=== PATIENT | female | born 1940 | race Caucasian/White ===

== ENCOUNTER 2018-03-07 05:49 | Day surgery (SDC) | payer MEDICARE, SELFPAY ==
--- NOTE | 2018-02-26 10:58 | EKG12_ITS ---
Test Reason : PRE OP Blood Pressure : / mmHG Vent. Rate : 078 BPM Atrial Rate : 078 BPM P-R Int : 154 ms QRS Dur : 078 ms QT Int : 390 ms P-R-T Axes : 061 036 059 degrees QTc Int : 444 ms Normal sinus rhythm with sinus arrhythmia Septal infarct , age undetermined Abnormal ECG Confirmed by CINDY NEWMAN, WOOD ([id number]), fashion editor RANDY VIVEROS ([id number]) on 02/28/2018 3:04:12 PM Referred By: Nito Viveros Confirmed By:WOOD WHITE MD
[2018-02-26 11:04] LABS: Hematocrit 39.7 % (37-47); Mean Corp Hgb Conc 32.7 g/gl (32-36); Mean Corpuscular Hgb 29.4 pg (27.0-32.0); Mean Corpuscular Volume 89.8 fL (81-99); Mean Platelet Vol. 10.5 fl (6.2-12.0); Platelet Count 217 K/mm3 (150-450); RBC Distribution Width CV 12.7 % (11.6-14.6); RBC Distribution Width SD 41.3 fl (35.1-43.9); Red Blood Count 4.42 M/mm3 (4.2-5.4); Scan Indicated on CBC? Y/N NO; White Blood Count 7.4 K/mm3 (4.4-11.0)
[2018-02-26 11:47] LABS: Anion Gap 6 (5-15); BUN 15 mg/dL (7-18); BUN/Creat Ratio 15.3 RATIO (10-20); Calcium,Total 9.5 mg/dL (8.5-10.1); Chloride 106 mmol/L (98-107); Creatinine, Serum 0.98 mg/dL (0.55-1.02); EST Glomerular Filtration Rate 59 mL/min (>60); Est Glom Filt Rate - Afr Amer 71 mL/min (>60); Glucose 96 mg/dL (74-106); Potassium 3.6 mmol/L (3.5-5.1); Sodium Level 142 mmol/L (136-145)
[2018-03-07 06:41] VITALS: BP 194/87; PULSE 71; RESP 14; TEMP 35.9; O2SAT 95; BMI 23.8
[2018-03-07] MEDS: Cefazolin 1 GM/50 ML BAG IV (07:32)
[2018-03-07 08:24] VITALS: BP 175/80; BP 194/87; PULSE 81; RESP 14; TEMP 36.5; O2SAT 96
[2018-03-07 08:30] VITALS: BP 173/68; BP 194/87; PULSE 67; RESP 18; O2SAT 100
--- NOTE | 2018-03-07 08:30 | PCM.OP.BLANK ---
Operative Report Date of Procedure: 03/07/18 Preoperative diagnosis: Left knee medial and lateral meniscus tears, arthritis Postoperative diagnosis : Same Procedure: Diagnostic video arthroscopy, partial medial and partial lateral meniscectomies, chondroplasty Surgeon: Dr. Nito Viveros Anesthesia: General anesthesia Special medications: Ancef Indications for surgery: Patient is a 77 -year-old female with a long-standing history of left knee pain. Patient failed adequate nonoperative treatment for the knee pain. MRI findings discussed with patient. Due to persistent symptoms they wish to proceed with knee arthroscopy. Findings: Intraoperative findings were consistent with her preoperative history, physical, radiographic exam. Complex tear of the medial meniscus and complex tear of the lateral meniscus noted and appropriately resected. Chondromalacia medial femoral condyle, lateral femoral condyle, patella noted and lightly shaved Details of procedure: Patient was taken to the OR transfer to the OR table. Nonoperative limb was appropriately padded, GERALDO hose and SCD applied. Patient was placed under the anesthetic agent. Operative knee was examined. No signs of infection. Operative upper thigh was well-padded and ultimately placed in a well-padded thigh jimenez. Operative lower extremity was prepped and draped in usual orthopedic sterile fashion for the procedure. Local anesthetic agent was sterilely injected into the proposed arthroscopic portals. Lateral portal was established with a knife. Took us through skin only. Dull trocar took us into the joint. The scope was placed through the lateral portal. Medial portal and ultimately established using a spinal needle followed by a knife through skin, followed by a dull trocar into the joint. Probe was placed to the medial portal. Patellofemoral joint: Mild arthritis was noted. Patella tracked nicely. No significant plica noted. Light chondroplasty performed patella Medial and lateral gutter: No loose bodies or pathology noted. Mild bone spurring medially Intercondylar notch: ACL appeared within normal limits. Nice resting tension. No loose bodies or cystic changes noted. Medial compartment: Mild chondrosis medial femoral condyle. Almost full-thickness cartilage loss upper tibia. Complex tear of the posterior horn and midportion of the medial meniscus noted and appropriately resected. White chalky substance within the compartment consistent with previous cortisone injections. Chondroplasty performed Lateral compartment: Lateral compartment showed some chondrosis of the lateral femoral condyle. Tibial cartilage appeared normal. Complex tear of the midportion and posterior horn of the lateral meniscus noted in appropriately resected. Light chondroplasty performed Attempts were made to gait posterior medial and posterior lateral with the scope. Based on her bony anatomy this was not accessible without traumatizing the bone and therefore not done. Arthroscopic pictures were taken and saved throughout the procedure. Knee was drained of excess fluid. Arthroscopic instruments were removed. Arthroscopic portals closed with simple sutures of 4-0 nylon. Knee joint injected with a combination of local anesthetic and Duramorph. sterile bandage was applied. Patient was transferred to the room bed and recovery room in satisfactory condition. They will be discharged to home when stable, follow-up in the office in 7-10 days. Patient and the family understand discharge instructions, all of their questions answered. Weightbearing as tolerated. Continue aspirin for DVT prevention This note was generated with [employer] dictation software. It may contain incorrect words, spelling, and punctuation that were not noted in checking the note before signing.
--- NOTE | 2018-03-07 08:37 | OP.PCM_ITS ---
Operative Report Date of Procedure: 03/07/18 Preoperative diagnosis: Left knee medial and lateral meniscus tears, arthritis Postoperative diagnosis : Same Procedure: Diagnostic video arthroscopy, partial medial and partial lateral meniscectomies, chondroplasty Surgeon: Dr. Nito Viveros Anesthesia: General anesthesia Special medications: Ancef Indications for surgery: Patient is a 77 -year-old female with a long-standing history of left knee pain. Patient failed adequate nonoperative treatment for the knee pain. MRI findings discussed with patient. Due to persistent symptoms they wish to proceed with knee arthroscopy. Findings: Intraoperative findings were consistent with her preoperative history, physical , radiographic exam. Complex tear of the medial meniscus and complex tear of the lateral meniscus noted and appropriately resected. Chondromalacia medial femoral condyle, lateral femoral condyle, patella noted and lightly shaved Details of procedure: Patient was taken to the OR transfer to the OR table. Nonoperative limb was appropriately padded, GERALDO hose and SCD applied. Patient was placed under the anesthetic agent. Operative knee was examined. No signs of infection. Operative upper thigh was well-padded and ultimately placed in a well-padded thigh jimenez. Operative lower extremity was prepped and draped in usual orthopedic sterile fashion for the procedure. Local anesthetic agent was sterilely injected into the proposed arthroscopic portals. Lateral portal was established with a knife. Took us through skin only. Dull trocar took us into the joint. The scope was placed through the lateral portal. Medial portal and ultimately established using a spinal needle followed by a knife through skin, followed by a dull trocar into the joint. Probe was placed to the medial portal. Patellofemoral joint: Mild arthritis was noted. Patella tracked nicely. No significant plica noted. Light chondroplasty performed patella Medial and lateral gutter: No loose bodies or pathology noted. Mild bone spurring medially Intercondylar notch: ACL appeared within normal limits. Nice resting tension. No loose bodies or cystic changes noted. Medial compartment: Mild chondrosis medial femoral condyle. Almost full- thickness cartilage loss upper tibia. Complex tear of the posterior horn and midportion of the medial meniscus noted and appropriately resected. White chalky substance within the compartment consistent with previous cortisone injections. Chondroplasty performed Lateral compartment: Lateral compartment showed some chondrosis of the lateral femoral condyle. Tibial cartilage appeared normal. Complex tear of the midportion and posterior horn of the lateral meniscus noted in appropriately resected. Light chondroplasty performed Attempts were made to gait posterior medial and posterior lateral with the scope. Based on her bony anatomy this was not accessible without traumatizing the bone and therefore not done. Arthroscopic pictures were taken and saved throughout the procedure. Knee was drained of excess fluid. Arthroscopic instruments were removed. Arthroscopic portals closed with simple sutures of 4-0 nylon. Knee joint injected with a combination of local anesthetic and Duramorph. sterile bandage was applied. Patient was transferred to the room bed and recovery room in satisfactory condition. They will be discharged to home when stable, follow-up in the office in 7-10 days. Patient and the family understand discharge instructions, all of their questions answered. Weightbearing as tolerated. Continue aspirin for DVT prevention This note was generated with [employer] dictation software. It may contain incorrect words, spelling, and punctuation that were not noted in checking the note before signing.
[2018-03-07 08:47] VITALS: BP 180/74; BP 194/87; PULSE 63; RESP 18; O2SAT 99
[2018-03-07 09:01] VITALS: BP 179/62; BP 194/87; PULSE 59; RESP 16; TEMP 36.2; O2SAT 98
[2018-03-07 10:00] VITALS: BP 194/87
== END 2018-03-07 10:05 | disposition home or self-care (01) ==
LOC: SDC 05:52 → AC 05:52
PROVIDERS: Family Provider Family Medicine; PCP Family Medicine; Visit Provider Orthopaedic Surgery
PROC: (CPT 29870; principal; 2018-03-07 07:10)
DX: M23.222 Derangement of posterior horn of medial meniscus due to old tear or injury, left knee (principal); M23.252 Derangement of posterior horn of lateral meniscus due to old tear or injury, left knee; M17.12 Unilateral primary osteoarthritis, left knee; M94.262 Chondromalacia, left knee; I34.1 Nonrheumatic mitral (valve) prolapse; I10 Essential (primary) hypertension; K21.9 Gastro-esophageal reflux disease without esophagitis; E78.00 Pure hypercholesterolemia, unspecified; F32.9 Major depressive disorder, single episode, unspecified; F41.9 Anxiety disorder, unspecified; Z87.891 Personal history of nicotine dependence; Z79.82 Long term (current) use of aspirin; Z79.899 Other long term (current) drug therapy
CPT/HCPCS: 29880; 36415; 80048; 85027; J7120

== ENCOUNTER → 2018-07-03 10:39 | Outpatient (CLI) | payer MEDICARE, SELFPAY ==
[2018-07-03 12:16] LABS: AST(SGOT) 18 U/L (15-37); Alanine Aminotransfer ALT/SGPT 26 U/L (13-56); Albumin, Serum 3.3 g/dL (3.2-5.0); Alkaline Phosphatase 106 U/L (45-117); Bilirubin, Direct 0.11 mg/dL (0.00-0.30); Cholesterol 210 mg/dL (200); Globulin 3.7 g/dL (2.2-4.2); High Density Lipoprotein 52 mg/dL; Triglycerides 316 mg/dL; Very Low Density Lipoprotein 63 mg/dL (5-40)
== END ==
PROVIDERS: Family Provider Family Medicine; PCP Family Medicine; Visit Provider Internal Medicine Cardiovascular Disease
DX: E78.5 Hyperlipidemia, unspecified (principal); Z79.899 Other long term (current) drug therapy
CPT/HCPCS: 36415; 80061; 80076

== ENCOUNTER → 2019-01-15 09:44 | Outpatient (CLI) | payer MEDICARE, SELFPAY ==
[2019-01-15 10:56] LABS: AST(SGOT) 19 U/L (15-37); Alanine Aminotransfer ALT/SGPT 22 U/L (13-56); Albumin, Serum 3.9 g/dL (3.2-5.0); Alkaline Phosphatase 119 U/L (45-117); Bilirubin, Direct 0.11 mg/dL (0.00-0.30); Cholesterol 181 mg/dL (200); Globulin 3.7 g/dL (2.2-4.2); High Density Lipoprotein 46 mg/dL; Protein, Total 7.6 g/dL (6.4-8.2); Triglycerides 341 mg/dL; Very Low Density Lipoprotein 68 mg/dL (5-40)
== END ==
PROVIDERS: Family Provider Family Medicine; PCP Family Medicine; Referring Provider Nurse Practitioner Family; Visit Provider Nurse Practitioner Family
DX: E78.5 Hyperlipidemia, unspecified (principal)
CPT/HCPCS: 36415; 80061; 80076

== ENCOUNTER → 2019-12-23 13:42 | Outpatient (CLI) | payer MEDICARE, SELFPAY ==
[2019-12-03 11:28] VITALS: BMI 23.0
--- NOTE | 2019-12-23 13:44 | ECHOD_ITS ---
Reason For Study: Dyspnea/SOB Procedure This was a 2D Doppler, Color Flow transthoracic echocardiogram. Exam performed in department. Left Ventricle Normal LV size. Left ventricular systolic function is normal. The estimated ejection fraction is 60 %. Stage 1 diastolic dysfunction. No regional wall motion abnormalities noted. Right Ventricle Normal RV size. Normal systolic function. Atria Normal left atrium. Normal right atrium. Mitral Valve Mild focal mitral valve calcification of the anterior leaflet. Mild mitral valve prolapse. Tricuspid Valve Normal tricuspid valve. Mild (1+) tricuspid valve insufficiency. Pulmonary artery systolic pressure is 28 mmHg. Aortic Valve Normal aortic valve. Trisinus/trileaflet aortic valve. Pulmonic Valve Normal pulmonic valve. Great Vessels Normal aortic root. The pulmonary artery is normal size. Normal inferior vena cava. Pericardium/Pleural No pericardial effusion. MMode/2D Measurements & Calculations LVIDd: 4.2 cm IVSd: 1.3 cm LA dimension: 3.0 cm LVIDs: 2.2 cm LVPWd: 1.2 cm RVDd: 3.1 cm FS: 47.6 % LAV(MOD-bp): 51.9 ml LA A4 area: 20.0 cm2 RA A4 area: 17.6 cm2 LAV(MOD-bp) Indexed: 29.2 ml/m2 LAV(MOD-sp2): 45.7 ml LAV(MOD-sp4): 52.2 ml Time Measurements MV dec time: 0.38 sec Doppler Measurements & Calculations MV E max taz: 52.3 cm/sec Lat Peak E' Taz: 6.9 cm/sec Med Peak E' Taz: 5.2 cm/sec MV A max taz: 82.0 cm/sec E/E' lat: 7.6 E/E' med: 10.0 MV E/A: 0.64 MV V2 max: 101.1 cm/sec MV P1/2t max taz: 78.0 cm/sec Ao V2 max: 166.6 cm/sec MV max P.1 mmHg MV P1/2t: 78.3 msec Ao max P.1 mmHg MV V2 mean: 54.2 cm/sec MV dec slope: 292.0 cm/sec2 MV mean P.3 mmHg MVA(P1/2t): 2.8 cm2 MV V2 VTI: 24.1 cm LV V1 max: 110.0 cm/sec PA V2 max: 97.3 cm/sec TR max taz: 253.7 cm/sec LV V1 max P.8 mmHg TR max P.8 mmHg Interpretation Summary Normal LV size. Left ventricular systolic function is normal. The estimated ejection fraction is 60 %. Stage 1 diastolic dysfunction. Mild mitral valve prolapse. Pulmonary artery systolic pressure is 28 mmHg. Ordering Physician: Yousuf Montiel Referring Physician: CHET Mcnair M.D. Performed By: Pal Sutton RCS
== END ==
PROVIDERS: PCP Family Medicine; Referring Provider Nurse Practitioner Family; Visit Provider Nurse Practitioner Family
DX: I34.1 Nonrheumatic mitral (valve) prolapse (principal); R06.09 Other forms of dyspnea
CPT/HCPCS: 93306

== ENCOUNTER → 2020-06-22 14:55 | Outpatient (CLI) | payer MEDICARE, SELFPAY ==
[2019-12-03 11:28] VITALS: BMI 23.0
--- NOTE | 2020-06-22 15:00 | CT_ITS ---
STUDY: CT SCAN LOWER EXTREMITY RIGHT REASON FOR EXAM: Female, 79 years old. VALGUS DEFORMITY-ILEANA PROTOCOL RADIATION DOSAGE (If Supplied By Facility): CTDIvol = ( 18.76 ) mGy, DLP = ( 1096.13 ) mGycm. Individualized dose optimization techniques were used for this CT.? TECHNIQUE: Multiple axial tomographic images of the right lower extremity were obtained. Coronal and sagittal reconstructions obtained as well COMPARISON: None. FINDINGS: Small acetabular spur is seen along the superior lateral aspect of the acetabulum. No significant joint space narrowing is seen. Marked degree of joint space narrowing involving the medial compartment of the knee joint with evidence of degenerative spurs along the medial tibial plateau and medial femoral condyle. Mild degree of joint space narrowing along the lateral compartment of the knee joint with degenerative spurring along the lateral femoral condyle. Mild degree of joint space narrowing involving the femoral patellar joint. There is evidence of a degenerative spur along the anterior aspect of the lateral femoral condyle. The ankle joint is unremarkable. There is evidence of a 7.2 mm cyst in the body of the calcaneus. CT/Extremity Lower without Contra IMPRESSION: Degenerative changes involving the knee joint as described. Electronically Signed: Rancho Simpson, at 8:26 EDT , Service support ,
== END ==
PROVIDERS: PCP Family Medicine; Referring Provider Orthopaedic Surgery; Visit Provider Orthopaedic Surgery
DX: M21.161 Varus deformity, not elsewhere classified, right knee (principal)
CPT/HCPCS: 73700

== ENCOUNTER 2020-07-11 09:23 | Observation (INO) | payer MEDICARE, SELFPAY ==
[2019-12-03 11:28] VITALS: BMI 23.0
--- NOTE | 2020-06-22 15:04 | EKG12_ITS ---
Test Reason : PRE OP Blood Pressure : / mmHG Vent. Rate : 057 BPM Atrial Rate : 057 BPM P-R Int : 168 ms QRS Dur : 082 ms QT Int : 398 ms P-R-T Axes : 059 025 044 degrees QTc Int : 387 ms Sinus bradycardia with sinus arrhythmia Septal infarct , age undetermined Abnormal ECG Confirmed by CINDY NEWMAN, WOOD ([id number]), photographic editor WARREN CORREA ([id number]) on 06/27/2020 1:59:01 PM Referred By: Nito Viveros Confirmed By:WOOD WHITE MD
--- NOTE | 2020-06-22 15:10 | RAD_ITS ---
STUDY: X-RAY CHEST REASON FOR EXAM: Female, 79 years old. Pre op for knee replacement. Hx of high blood pressure TECHNIQUE: PA and lateral views of the chest. COMPARISON: Comparison is made with prior study dated 10/15/2014. FINDINGS: Hyperinflation. The lungs are clear. There is no demonstrated pleural abnormality. Normal size heart. Normal mediastinum and meño. Normal visualized pulmonary arteries. There is atherosclerotic tortuosity of the aortic arch and descending thoracic aorta. There is demineralization of the osseous structures. Normal visualized ribs, clavicles, and shoulders. There is no demonstrated abnormality of the visualized soft tissue structures of the upper abdomen. RAD/Chest PA and Lateral IMPRESSION: Hyperinflation. Electronically Signed: Rancho Simpson, at 15:25 EDT , Service support ,
[2020-06-22 16:02] LABS: Hematocrit 35.8 % (37-47); Hemoglobin 12.4 g/dL (12.0-15.0); Mean Corp Hgb Conc 34.6 g/dL (32-36); Mean Corpuscular Hgb 30.8 pg (27.0-32.0); Mean Corpuscular Volume 89.1 fL (81-99); Mean Platelet Vol. 10.2 fl (6.2-12.0); Platelet Count 247 K/mm3 (150-450); RBC Distribution Width CV 11.9 % (11.6-14.6); RBC Distribution Width SD 38.7 fl (35.1-43.9); Red Blood Count 4.02 M/mm3 (4.2-5.4); White Blood Count 6.1 K/mm3 (4.4-11.0)
[2020-06-22 16:39] LABS: Anion Gap 3 (5-15); BUN 12 mg/dL (7-18); BUN/Creat Ratio 12.8 RATIO (10-20); Calcium,Total 9.8 mg/dL (8.5-10.1); Chloride 102 mmol/L (98-107); Creatinine, Serum 0.94 mg/dL (0.55-1.02); EST Glomerular Filtration Rate 61 mL/min (>60); Est Glom Filt Rate - Afr Amer 74 mL/min (>60); Glucose 90 mg/dL (74-106); Potassium 3.6 mmol/L (3.5-5.1); Sodium Level 137 mmol/L (136-145)
[2020-06-23 14:51] LABS: Magnesium 1.8 mg/dL (1.6-2.6)
[2020-07-05 08:48] VITALS: BMI 23.1
[2020-07-11] VITALS (12 sets, daily range): BP systolic 101–144; BP diastolic 48–83; PULSE 59–71; RESP 14–20; TEMP 36.2–36.7; O2SAT 90–100; BMI 22.1
[2020-07-11] MEDS: Lactated Ringers 1,000 ML 100 ML IV (06:10)
[2020-07-11] MEDS: Gabapentin 600 MG Tablet PO (06:12)
[2020-07-11] MEDS: Acetaminophen 500 MG Tablet 1000 MG PO ×3 (06:12→21:04)
[2020-07-11] MEDS: Scopolamine 1mg/72hr Patch 1 PATCH TRANSDERM. (06:13)
[2020-07-11 06:35] LABS: Bedside Glucose 81 mg/dL (70-110)
--- NOTE | 2020-07-11 07:30 | KNEE_PTH ---
PATIENT: BERNY TOLENTINO LOC: [id number] U#:[id number] AGE/SX: 79/F ROOM: NJ310 RE07/11/[address]: Dr. Grzegorz Canales MD : [id number] BED: 1 DIS: 07/12/2020 SPEC #: [id number] RECD: 07/11/20 10:06 STATUS: EARLENE JUDY #: [id number] BRIELLE: 07/11/20 07:[address]: Nito Viveros DEPT: SURGICAL PATHOLOGY RECD BY: Nelly Fried ENTERED: 07/11/20 10:22 SP TYPE: TOTAL KNEE OTHR DR: MD Ivone Watson III, PA Tissues: Knee, NOS Procedures: Decalcification bone/plaque Surgery Specimen Level IV HEADER OPERATION: Total knee replacement, robotic arm assist PRE-OP DIAGNOSIS: Right knee osteoarthritis TISSUE SUBMITTED: Debrided bone and tissue right knee MICROSCOPIC DIAGNOSIS Bone and soft tissue, right knee, total knee replacement/resection: Pieces of bone with degenerative osteoarthritic changes. Fibroadipose tissue, fibroconnective tissue and reactive synovial tissue. KIKA:ivette 07/14/20 MICROSCOPIC DESCRIPTION Slides are reviewed. GROSS DESCRIPTION Received is one container designated debrided bone and tissue right knee. The specimen consists of multiple fragments of padilla-yellow bone measuring in aggregate 10.5 x 9 x 3.5 cm. Also in the specimen container are multiple fragments of yellow-white soft tissue measuring in aggregate 7.5 x 4.5 x 2 cm. A number of bony fragments contain articular surfaces consistent with tibial plateau and femoral condyle and displaying prominent osteophyte formation, eburnation, and bone erosion. Athletic Instructor sections are submitted in two cassettes as follows: 1 - soft tissue, 2 - bone after decalcification. / KIKA:ivette 07/11/20 TC:5 CPT: 86318, 86764
[2020-07-11] MEDS: Cefazolin 2 GM in 0.9% Normal Saline 100 ML IV (07:44)
[2020-07-11] MEDS: dexAMETHasone 10 MG/ML Vial IV (07:49)
--- NOTE | 2020-07-11 09:05 | PCM.OP.PRO ---
Procedure Report Date of Procedure: 07/11/20 Preoperative diagnosis: Right knee severe posttraumatic arthritis Postoperative diagnosis: Same Title of procedure : Right total knee replacement, press fit ABUNDIO Surgeon: Nito Viveros MD Lockstitch Lining Setter: Ivone Winslow PA-C Anesthesia: General adductor canal nerve block Anesthesiologist:Dr. Bush / RADHA Special medications: Ancef, tranexamic acid Indications for surgery: Patient is a [79-year-old [female] with a history of knee arthritis appropriately treated and failed conservative measures and wished to proceed with total knee replacement. Patient was cleared for surgery by the medical doctor and has been evaluated by the anesthesia staff Findings: Intraoperative findings showed severe arthritis of the knee. Patient underwent knee replacement using [employer] press-fit total knee components Abundio robotic assisted. Size [4] femur, size [4] tibia, [29 x 9] asymmetric X3 patella, size [4-9 CS] X3 tibial polyethylene insert, knee was nicely balanced. Patella tracked well. Patient underwent standard wound closure in layers. Vicryl and strata fix sutures utilized followed by skin jocelyne. speech language pathology assistant, physician hair or beauty salon assistant, was utilized throughout the entire procedure. They were vital in helping with patient positioning, holding of retractors, exposing the tissues adequately for safe completion of the procedure including cutting of the bone, helping municipal court judge appropriate alignment and sizing of the components, implantation of the components, as well as wound closure, bandage application, and safe patient transfer. Without surgical instruments inspector, physician hair or beauty salon assistant, surgical time would have been significantly increased, and surgical outcome could have been less optimal. Description of procedure: The patient was taken to the OR, transferred to the OR table. They were given a spinal anesthetic. Ancef was given IV preoperatively. Tranexamic acid was given IV preoperatively. Well-padded tourniquet was applied to the upper thigh of the operative leg. Nonoperative leg had a GERALDO hose and SCD on throughout. Operative limb was prepped padded and draped in usual orthopedic sterile fashion for the procedure. We began by injecting the pain relieving solution in the anterior superior aspect of the knee region. The limb was exsanguinated, and the tourniquet was applied to 250 mmHg. Made a midline incision through skin, subcutaneous tissue, bringing down us on the extensor mechanism. Medial parapatellar arthrotomy was carried out. Straw-colored joint fluid was evacuated. We raised a sleeve of tissue off the upper medial tibia. Resected some of the infrapatellar fat pad. We remove degenerative medial and lateral meniscus. Removed bone spurs from about the patella. We removed tissue off the anterior aspect of the distal femur. Patella was translated laterally and/or everted as needed throughout the procedure. ACL was resected. PCL was preserved. Collateral ligaments were preserved. Physician placed the retractors and hair or beauty salon assistant held retractors protecting above ligaments throughout the procedure. Patella was everted. Measured. Appropriate resection was carried out leaving us between a 13 and 15 mm thick patella. Metal plate was applied. Pins were placed in the femur and tibia at appropriate locations being bicortical. Check pin was placed in the distal femur and upper tibia at appropriate location. Capricor robot was appropriately prepared femur then tibia. Knee was appropriately stressed in 90 degrees of flexion as well as in extension. Robot was appropriately manipulated to allow for approximately 19 to 21 mm of flexion and extension gap. Good sizing and alignment of components was noted on computer. Robotic cuts were carried out cutting the upper tibia first, followed by femoral cuts. Lockstitch Lining Setter help with retraction and protecting soft tissues throughout. Bone fragments were removed. we then sized off the upper tibia with the help of the hair or beauty salon assistant. We then checked flexion extension gaps finding them to be adequate and equal. Tibial trial with plastic insert was inserted. Next the distal femoral trial was applied. Tibial tray was allowed to freefloat with a 9 mm insert. Knee was flexed and extended an external alignment guide is utilized. Tibial trial was pinned in place. Drill holes were placed into the distal femoral trial and it was removed. Punch was used on the upper tibial component and that was removed. The sclerotic bone was softened with a sharp pin. Bone spurs had been removed from the posterior medial and posterior lateral aspect of the femur while the hair or beauty salon assistant lifted up on the distal femur and exposed each compartment. Patella was everted and measured. Patella was sized. Clamp was utilized. 3 drill holes were placed through the clamp held by the hair or beauty salon assistant. Trial patella was placed and removed. Bleeding was controlled at the back of the knee with the bovey. Posterior knee soft tissues were carefully injected with pain relieving solution. Components were checked and open. . The bony surfaces cleaned and dried. Tibia, femur, patella press-fit into position. Tibial insert was placed just before placing the femur. Lockstitch Lining Setter held retractors exposing the bony surfaces of the tibia and femur which were hammered in position. Patella clamped into position.balancing was again checked with the computer. Checkpoints and femoral and tibial pins removed. we thoroughly irrigated and debrided the knee. Bleeding controlled with the Bovie. Knee was again thoroughly irrigated. Irresept solution utilized. Patella noted to track nicely. We repaired the arthrotomy with a combination of #1 Vicryl and #2 strata fix. We did a mid layer of 1 Vicryl and #0 strata fix running. Jocelyne were utilized on the incision as well as pin sites. Mepilex dressing applied. GERALDO hose and SCDs applied. Patient was awoken from their anesthetic, transferred back to their own bed and recovery room in satisfactory condition. Second dose of IV Tranexamic acid was given while closing wound. Patient was admitted, appropriate IV antibiotic to be utilized as well as medication for DVT prevention. Hopeful discharge in 1-2 days. Hospitalist service and Physical therapy will be consulted. Ancef was used 2 g IV preoperatively. Xarelto will be used for DVT prevention 10 mg daily This note was generated with [employer] dictation software. It may contain incorrect words, spelling, and punctuation that were not noted in checking the note before signing.
--- NOTE | 2020-07-11 09:25 | RAD_ITS ---
STUDY: X-RAY - RIGHT KNEE REASON FOR EXAM: Female, 79 years old. POST OP TOTAL KNEE TECHNIQUE: AP and lateral view(s) of the knee. COMPARISON: Comparison is made with prior study dated 11/07/2015. FINDINGS: Normal visualized distal femur. Normal visualized proximal tibia and fibula. Normal proximal tibiofibular articulation. The patient is status post total knee replacement. There is good alignment. Postoperative soft tissue changes. RAD/Knee 1 or 2 Views IMPRESSION: Status post total knee replacement. There is good alignment. Postoperative soft tissue changes. Electronically Signed: Rancho Simpson, at 12:35 EDT , Service support ,
[2020-07-11] MEDS: Lactated Ringers 1,000 ML 125 ML IV ×2 (13:30→21:18)
[2020-07-11] MEDS: hydroCHLOROthiazide 12.5mg 12.5 MG PO (13:34)
[2020-07-11] MEDS: Sertraline 100 MG Tablet PO (13:35)
[2020-07-11] MEDS: buPROPion (XL) 300 MG TABLET.XL PO (13:35)
[2020-07-11] MEDS: Cefazolin 1 GM/50 ML BAG IV ×2 (13:40→21:00)
--- NOTE | 2020-07-11 15:11 | PN_ITS ---
<NiranjanCynthia DISPUTE RESOLUTION SPECIALIST - Last Filed: 07/11/20 15:34> Subjective: Patient seen and examined. Status post right total knee replacement by Dr. Viveros. Resting comfortably in bed. She has a past medical history of hypertension, hyperlipidemia, mitral valve prolapse, ulcerative colitis, GERD, depression, anxiety. - Physical Exam Vitals/I&O's: Vital Signs Temp Pulse Resp BP Pulse Ox 97.1 F L 67 20 H 127/66 H 95 07/11/20 13:28 07/11/20 13:28 07/11/20 13:28 07/11/20 13:28 07/11/20 13:28 Oxygen Flow Rate (L/min) 2 Oxygen Delivery Method Nasal Cannula Weight: 145 lb 8.081 oz Body Mass Index (BMI) 22.1 Intake and Output for Last 24 Hours 07/09/20 07/10/20 07/11/20 23:59 23:59 23:59 Intake Total 1238.16 / 1238.16 Balance 1238.16 / 1238.16 General: Alert, Oriented x3, Cooperative HEENT: Atraumatic, PERRLA, EOMI, Normocephalic Neck: Supple, No JVD, Negative Carotid Bruits Lungs: Clear to auscultation, Normal air movement Cardiovascular: Regular rate, No murmurs Abdomen: Bowel Sounds Present, Soft, Non Tender Extremities: No clubbing, No cyanosis, No edema Skin: No rashes, No breakdown, - - Right knee postop dressing intact Musculoskeletal: No Tenderness to Palpation of Joints or Extremities Neurological: Cranial nerves II-XII grossly intact, Neuro grossly intact Psych/Mental Status: Normal Affect, Appropriate Laboratory Results 07/11/20 05:57: POC Glucose 81 Current Medications Acetaminophen (Tylenol) 1,000 mg PO Q8 [facility] Last Admin: 07/11/20 13:35 Dose: 1,000 mg Documented by: Amlodipine Besylate (Norvasc) 5 mg PO DAILY [facility] Bupropion HCl (Wellbutrin Xl) 300 mg PO DAILY [facility] Last Admin: 07/11/20 13:35 Dose: 300 mg Documented by: Carvedilol (Coreg) 3.125 mg PO BID [facility] Clonazepam (Klonopin) 0.5 mg PO TID PRN PRN PRN Reason: ANXIETY Dexamethasone Sodium Phosphate (Decadron) 10 mg IV X1 ONE Stop: 07/12/20 08:01 Diphenhydramine HCl (Benadryl) 25 mg PO QHS PRN PRN PRN Reason: SLEEP Hydrochlorothiazide () 12.5 mg PO DAILY [facility] Last Admin: 07/11/20 13:34 Dose: 12.5 mg Documented by: Cefazolin Sodium () 1 gm in 50 mls @ 150 mls/hr IV Q6H [facility] Stop: 07/12/20 02:19 Last Infusion: 07/11/20 14:00 Dose: Infused Documented by: Lactated Ringer's () 1,000 mls @ 125 mls/hr IV .Q8H [facility] Last Infusion: 07/11/20 14:00 Dose: 125 mls/hr Documented by: Sodium Chloride () 250 mls @ 15 mls/hr IV .[id number] PRN PRN Reason: Additional IVPB Infusion Insulin Human Lispro (Humalog Kwikpen (Bkc)) 1 - 6 unit SC Q4H PRN PRN; Protocol PRN Reason: BG>/= 180, SEE PROTOCOL Lisinopril (Zestril) 20 mg PO DAILY [facility] Morphine Sulfate () 2 - 4 mg IV Q2H PRN PRN PRN Reason: Pain Score 6-10/10 Morphine Sulfate () 2 - 4 mg IV Q2H PRN PRN PRN Reason: Pain Score 6-10/10 Ondansetron HCl (Zofran) 4 mg IV Q8H PRN PRN PRN Reason: NAUSEA Oxycodone HCl (Oxyir) 5 - 10 mg PO Q4H PRN PRN PRN Reason: Pain Score 4-10/10 Pantoprazole Sodium (Protonix) 20 mg PO BID [facility] Promethazine HCl (Phenergan) 12.5 mg IM Q6H PRN PRN; Protocol PRN Reason: NAUSEA/VOMITING Rivaroxaban (Xarelto) 10 mg PO DAILY@0600 [facility] Senna/Docusate Sodium (Senokot-S, Glenna-Colace) 2 tablet PO BID [facility] Last Admin: 07/11/20 13:34 Dose: Not Given Documented by: Sertraline HCl (Zoloft) 100 mg PO DAILY [facility] Last Admin: 07/11/20 13:35 Dose: 100 mg Documented by: Simvastatin (Zocor) 20 mg PO QHS [facility] Sodium Chloride () 10 - 40 ml IV UD PRN PRN Reason: SALINE FLUSH Medical Necessity - Tobacco Use Smoking Status: Former smoker Assessment/Plan 1. Postop day #0 right total knee replacement-PT/OT. PRN pain regimen. Management per Ortho. 2. Hypertension-stable, continue amlodipine, carvedilol, hydrochlorothiazide, quinapril. 3. Hyperlipidemia-continue statin. 4. Mitral valve prolapse-echo December 2019 with mild mitral valve prolapse. EF 60%, stage I diastolic dysfunction. 5. Ulcerative colitis 6. GERD-continue PPI. 7. Depression/anxiety-continue bupropion, clonazepam, sertraline. DVT prophylaxis- SCDs This patient was seen by DUANE Barry under the supervision of Dr. Childers. <Paige Childers - Last Filed: 07/11/20 17:06> Subjective: I agree with the above and the following reflects my own independent history and PE. Pt is sitting up in a chair. PT and OT at bedside. Denies any pain but did have a Femoral nn block. - Physical Exam Vitals/I&O's: Vital Signs Temp Pulse Resp BP Pulse Ox 97.5 F L 66 18 133/62 H 100 07/11/20 15:28 07/11/20 15:28 07/11/20 15:28 07/11/20 15:28 07/11/20 15:28 Oxygen Flow Rate (L/min) 2 Oxygen Delivery Method Room Air Weight: 66 kg Body Mass Index (BMI) 22.1 Intake and Output for Last 24 Hours 07/09/20 07/10/20 07/11/20 23:59 23:59 23:59 Intake Total 1238.16 / 1238.16 Balance 1238.16 / 1238.16 General: Alert, Oriented x3, Cooperative, No apparent distress, Well developed, Well nourished, - - Older WF sitting up in a chair with PT and OT at bedside HEENT: Atraumatic, PERRLA, EOMI, Normocephalic, EAC Clear Oral: Moist Mucosa, No Gingival or Mucosal Lesions/ Ulcerations, - - good dentition Neck: Supple, No JVD, Negative Carotid Bruits, Negative Hepatojugular Reflux, No Nodes, No Nuchal Rigidity, Trachea Midline, Thyroid Normal Size and Texture Lungs: Clear to auscultation, Normal air movement, No rhonchi, No wheeze, No rales Cardiovascular: Regular rate, Regular Rhythm, Normal S1, Normal S2, No murmurs, No Ectopic Activity, No rub noted, No Gallop Abdomen: Bowel Sounds Present, Soft, Non Tender, Non-Distended, No Hepato- splenomegaly Extremities: No clubbing, No cyanosis, No edema, Capillary Refill Less than 3 S econds, No Calf Tenderness, Peripheral Pulses Normal Skin: No rashes, No breakdown Musculoskeletal: No Tenderness to Palpation of Joints or Extremities, No Muscle Wasting Lymphatic: No Cervical, Supraclavicular, or Inguinal Adenopathy Neurological: Cranial nerves II-XII grossly intact, Neuro grossly intact Psych/Mental Status: Normal Affect, Appropriate, Alert and oriented to time, place, person, mood and affect Laboratory Results 07/11/20 05:57: POC Glucose 81 Current Medications Acetaminophen (Tylenol) 1,000 mg PO Q8 [facility] Last Admin: 07/11/20 13:35 Dose: 1,000 mg Documented by: Amlodipine Besylate (Norvasc) 5 mg PO DAILY [facility] Bupropion HCl (Wellbutrin Xl) 300 mg PO DAILY [facility] Last Admin: 07/11/20 13:35 Dose: 300 mg Documented by: Carvedilol (Coreg) 3.125 mg PO BID [facility] Clonazepam (Klonopin) 0.5 mg PO TID PRN PRN PRN Reason: ANXIETY Dexamethasone Sodium Phosphate (Decadron) 10 mg IV X1 ONE Stop: 07/12/20 08:01 Diphenhydramine HCl (Benadryl) 25 mg PO QHS PRN PRN PRN Reason: SLEEP Hydrochlorothiazide () 12.5 mg PO DAILY [facility] Last Admin: 07/11/20 13:34 Dose: 12.5 mg Documented by: Cefazolin Sodium () 1 gm in 50 mls @ 150 mls/hr IV Q6H [facility] Stop: 07/12/20 02:19 Last Infusion: 07/11/20 14:00 Dose: Infused Documented by: Lactated Ringer's () 1,000 mls @ 125 mls/hr IV .Q8H [facility] Last Infusion: 07/11/20 14:00 Dose: 125 mls/hr Documented by: Sodium Chloride () 250 mls @ 15 mls/hr IV .[id number] PRN PRN Reason: Additional IVPB Infusion Insulin Human Lispro (Humalog Kwikpen (Bkc)) 1 - 6 unit SC Q4H PRN PRN; Protocol PRN Reason: BG>/= 180, SEE PROTOCOL Lisinopril (Zestril) 20 mg PO DAILY [facility] Morphine Sulfate () 2 - 4 mg IV Q2H PRN PRN PRN Reason: Pain Score 6-10/10 Morphine Sulfate () 2 - 4 mg IV Q2H PRN PRN PRN Reason: Pain Score 6-10/10 Ondansetron HCl (Zofran) 4 mg IV Q8H PRN PRN PRN Reason: NAUSEA Oxycodone HCl (Oxyir) 5 - 10 mg PO Q4H PRN PRN PRN Reason: Pain Score 4-10/10 Last Admin: 07/11/20 15:26 Dose: 5 mg Documented by: Pantoprazole Sodium (Protonix) 20 mg PO BID [facility] Promethazine HCl (Phenergan) 12.5 mg IM Q6H PRN PRN; Protocol PRN Reason: NAUSEA/VOMITING Rivaroxaban (Xarelto) 10 mg PO DAILY@0600 [facility] Senna/Docusate Sodium (Senokot-S, Glenna-Colace) 2 tablet PO BID [facility] Last Admin: 07/11/20 13:34 Dose: Not Given Documented by: Sertraline HCl (Zoloft) 100 mg PO DAILY [facility] Last Admin: 07/11/20 13:35 Dose: 100 mg Documented by: Simvastatin (Zocor) 20 mg PO QHS [facility] Sodium Chloride () 10 - 40 ml IV UD PRN PRN Reason: SALINE FLUSH Assessment/Plan I agree with the above and the following reflects my own independent history and PE. ASSESSMENT POD # 0 R TKA HTN HPL MVP Stage I Diastolic Dysfunction UC GERD Depression/Anxiety DVT Prophylaxis Code Status--> FULL PLAN -PT/OT -pain mgt per ortho -plan is for D/C home -continue home meds -trend labs Inpatient E&M: 01731 Init Hosp L2
[2020-07-11] MEDS: oxyCODONE 5 MG Tablet PO (15:26)
[2020-07-11] MEDS: Pantoprazole Sodium 20 MG Tablet PO (21:04)
[2020-07-11] MEDS: Carvedilol 3.125 MG TABLET PO (21:04)
[2020-07-11] MEDS: Simvastatin 20 MG Tablet PO (21:04)
[2020-07-12 03:00] VITALS: BP 130/58; PULSE 61; RESP 18; TEMP 36.7; O2SAT 98
[2020-07-12] MEDS: Cefazolin 1 GM/50 ML BAG IV (03:02)
[2020-07-12 06:01] LABS: Hematocrit 27.6 % (37-47); Hemoglobin 9.5 g/dL (12.0-15.0); Mean Corp Hgb Conc 34.4 g/dL (32-36); Mean Corpuscular Hgb 30.4 pg (27.0-32.0); Mean Corpuscular Volume 88.5 fL (81-99); Mean Platelet Vol. 10.2 fl (6.2-12.0); Platelet Count 189 K/mm3 (150-450); RBC Distribution Width CV 11.5 % (11.6-14.6); RBC Distribution Width SD 36.4 fl (35.1-43.9); Red Blood Count 3.12 M/mm3 (4.2-5.4); White Blood Count 10.9 K/mm3 (4.4-11.0)
[2020-07-12] MEDS: oxyCODONE 5 MG Tablet PO ×2 (06:23→10:59)
[2020-07-12] MEDS: Rivaroxaban 10 MG Tablet PO (06:23)
[2020-07-12] MEDS: Acetaminophen 500 MG Tablet 1000 MG PO ×2 (06:24→13:47)
[2020-07-12 06:30] LABS: Anion Gap 6 (5-15); BUN 14 mg/dL (7-18); BUN/Creat Ratio 15.2 RATIO (10-20); Calcium,Total 8.8 mg/dL (8.5-10.1); Chloride 97 mmol/L (98-107); Creatinine, Serum 0.92 mg/dL (0.55-1.02); EST Glomerular Filtration Rate 63 mL/min (>60); Est Glom Filt Rate - Afr Amer 76 mL/min (>60); Estimated Creatinine Clearance 51.66 ml/min; Glucose 110 mg/dL (74-106); Potassium 3.3 mmol/L (3.5-5.1); Sodium Level 133 mmol/L (136-145)
--- NOTE | 2020-07-12 07:20 | PN.ORTHO_ITS ---
Subjective: This 79-year-old female underwent a right total knee replacement yesterday. Pain has been fairly well controlled. She stood with physical therapy yesterday. She is not sure if she is ready for discharge to home home health physical therapy versus penitentiary. She would like to see how physical therapy goes today. She currently denies chest pain shortness of breath dizziness or calf pain. We discussed her low potassium level. She admits that this is common with her. Objective: Patient is alert and oriented x3. No acute distress at rest. Breathing easily without respiratory distress. Inspection of right knee reveals 3 anterior knee dressings with some bloody drainage without active drainage warmth or signs of infection. Negative Ronalod bilaterally without signs of DVT. Pedal pulses present and equal bilaterally. Sensation intact to light touch bilateral lower extremities. Patient is able to actively plantar and dorsiflex bilateral feet against resistance. Legs are neurovascularly intact. X-ray of right knee were reviewed with Dr. Nito Viveros and are consistent with a right total knee replacement press-fit prostheses in good position without evidence of hardware failure or loosening Laboratory results - Physical Exam Vitals/I&O's: Vital Signs Temp Pulse Resp BP Pulse Ox 98.1 F 61 18 130/58 H 98 07/12/20 03:00 07/12/20 03:00 07/12/20 03:00 07/12/20 03:00 07/12/20 03:00 Oxygen Flow Rate (L/min) 2 Oxygen Delivery Method Nasal Cannula Weight: 66 kg Body Mass Index (BMI) 22.1 Intake and Output for Last 24 Hours 07/10/20 07/11/20 07/12/20 23:59 23:59 23:59 Intake Total 3060.66 / 3060.66 1697.92 / 1697.92 Output Total 200 / 200 950 / 950 Balance 2860.66 / 2860.66 747.92 / 747.92 Laboratory Results 07/12/20 05:48: WBC 10.9, RBC 3.12 L, Hgb 9.5 L, Hct 27.6 L, MCV 88.5, MCH 30.4, MCHC 34.4, RDW Std Deviation 36.4, RDW Coeff of [place] 11.5 L, Plt Count 189, MPV 10.2 07/12/20 05:48: Sodium 133 L, Potassium 3.3 L, Chloride 97 L, Carbon Dioxide 30.0, Anion Gap 6, BUN 14, Creatinine 0.92, Estim Creat Clear Calc 51.66, Est GFR (MDRD) Af Amer 76, Est GFR (MDRD) Non-Af 63, BUN/Creatinine Ratio 15.2, Glucose 110 H, Calcium 8.8 Current Medications Acetaminophen (Tylenol) 1,000 mg PO Q8 [facility] Last Admin: 07/12/20 06:24 Dose: 1,000 mg Documented by: Amlodipine Besylate (Norvasc) 5 mg PO DAILY [facility] Bupropion HCl (Wellbutrin Xl) 300 mg PO DAILY [facility] Last Admin: 07/11/20 13:35 Dose: 300 mg Documented by: Carvedilol (Coreg) 3.125 mg PO BID [facility] Last Admin: 07/11/20 21:04 Dose: 3.125 mg Documented by: Clonazepam (Klonopin) 0.5 mg PO TID PRN PRN PRN Reason: ANXIETY Dexamethasone Sodium Phosphate (Decadron) 10 mg IV X1 ONE Stop: 07/12/20 08:01 Diphenhydramine HCl (Benadryl) 25 mg PO QHS PRN PRN PRN Reason: SLEEP Hydrochlorothiazide () 12.5 mg PO DAILY [facility] Last Admin: 07/11/20 13:34 Dose: 12.5 mg Documented by: Lactated Ringer's () 1,000 mls @ 125 mls/hr IV .Q8H [facility] Last Infusion: 07/12/20 04:53 Dose: 0 mls/hr Documented by: Sodium Chloride () 250 mls @ 15 mls/hr IV .[id number] PRN PRN Reason: Additional IVPB Infusion Insulin Human Lispro (Humalog Kwikpen (Bkc)) 1 - 6 unit SC Q4H PRN PRN; Protoc ol PRN Reason: BG>/= 180, SEE PROTOCOL Lisinopril (Zestril) 20 mg PO DAILY [facility] Morphine Sulfate () 2 - 4 mg IV Q2H PRN PRN PRN Reason: Pain Score 6-10/10 Morphine Sulfate () 2 - 4 mg IV Q2H PRN PRN PRN Reason: Pain Score 6-10/10 Ondansetron HCl (Zofran) 4 mg IV Q8H PRN PRN PRN Reason: NAUSEA Oxycodone HCl (Oxyir) 5 - 10 mg PO Q4H PRN PRN PRN Reason: Pain Score 4-10/10 Last Admin: 07/12/20 06:23 Dose: 5 mg Documented by: Pantoprazole Sodium (Protonix) 20 mg PO BID [facility] Last Admin: 07/11/20 21:04 Dose: 20 mg Documented by: Promethazine HCl (Phenergan) 12.5 mg IM Q6H PRN PRN; Protocol PRN Reason: NAUSEA/VOMITING Rivaroxaban (Xarelto) 10 mg PO DAILY@0600 [facility] Last Admin: 07/12/20 06:23 Dose: 10 mg Documented by: Senna/Docusate Sodium (Senokot-S, Glenna-Colace) 2 tablet PO BID [facility] Last Admin: 07/11/20 21:28 Dose: Not Given Documented by: Sertraline HCl (Zoloft) 100 mg PO DAILY [facility] Last Admin: 07/11/20 13:35 Dose: 100 mg Documented by: Simvastatin (Zocor) 20 mg PO QHS [facility] Last Admin: 07/11/20 21:04 Dose: 20 mg Documented by: Sodium Chloride () 10 - 40 ml IV UD PRN PRN Reason: SALINE FLUSH Medical Necessity - Tobacco Use Smoking Status: Former smoker Assessment/Plan 1. Status post right total knee replacement postoperative day #1 2. Continue OxyIR and Tylenol for pain control 3. DVT prophylaxis bilateral teds SCDs and Xarelto 10 mg 1 p.o. daily for 1 week 4. Begin PT/OT weightbearing as tolerated right lower extremity with a walker 5. Drop in hemoglobin hematocrit asymptomatic without indication for transfusion continue to monitor 6. Continue postoperative medical management per hospitalist group. Hypokalemia to be addressed. Likely resulting from hydrochlorothiazide 7. Continue discharge planning with case management 8. Patient is orthopedically stable possible discharge to home today pending how physical therapy goes and pain control. If there is concern we may have to consider discharge to penitentiary facility.
[2020-07-12 07:23] VITALS: O2SAT 97
--- NOTE | 2020-07-12 07:38 | DCINST_ITS ---
Discharge Diet: No Restrictions Discharge Activity: May Not Drive, May not drive while taking narcotic pain medications., May Shower, Use Walker May shower in (days): 2 - Over Mepilex dressing Ice area for (Minutes): 20 - every hour while awake. Weight Bearing Status: Weight bearing as tolerated Elevate: Operative Extremity Additional Activity Instructions:: Wear elastic stockings for 2 weeks after your surgery. See *orthopedics postoperative instruction sheet Call your doctor if your incision/area has: Continuous Slow Oozing, Sudden Increased Bleeding, Increased Pain/ Swelling, Increased Redness, Foul Smelling Discharge Call your doctor if you observe: Fever of 101 or Higher, Coldness, Increased Pain, Numbness or Tingling, Change in Color, Shortness of breath, Chest pain, Calf discomfort, Uncontrolled pain Remove Dressing in (days):: 5 Cleanse incision/area with: Soap & Water Additional Dressing/Incision Instructions:: * see orthopedics postoperative instruction sheet Allergies/Adverse Reactions: Allergies atorvastatin calcium [From Lipitor] Allergy (Verified 07/11/20 05:44) Unknown Beta-Blockers (Beta-Adrenergic Bloc Allergy (Verified 07/11/20 05:44) Unknown cefaclor [From Ceclor] Allergy (Verified 07/11/20 05:44) Unknown Sulfa (Sulfonamide Antibiotics) Allergy (Verified 07/11/20 05:44) Hives Tetracyclines Allergy (Verified 07/11/20 05:44) Unknown propoxyphene [From Darvon] Adverse Reaction (Verified 07/11/20 05:44) Nausea Medications to take at Discharge Omeprazole [Prilosec] 20 mg PO BID 03/20/14 Clonazepam [Klonopin] 0.5 mg PO TID PRN PRN 09/05/14 buPROPion XL [Wellbutrin Xl] 300 mg PO DAILY 08/10/16 simvastatin 20 mg tablet 20 mg PO QHS 02/18/19 Amlodipine Besylate [Norvasc] 5 mg PO DAILY 06/23/20 Carvedilol 3.125 mg PO BID 06/23/20 DiphenhydrAMINE [Benadryl] 25 mg PO QHS PRN PRN 06/23/20 Hydrochlorothiazide 12.5 mg PO DAILY 06/23/20 quinapril 20 mg tablet 20 mg PO DAILY tab 07/05/20 sertraline 100 mg tablet 100 mg PO DAILY tab 07/05/20 Acetaminophen [Tylenol] 1,000 mg PO Q8 #30 tab 07/12/20 Oxycodone [Oxyir] 5 - 10 mg PO Q4H PRN PRN 7 Days #56 tab 07/12/20 Rivaroxaban [Xarelto] 10 mg PO DAILY@0600 #6 tab 07/12/20 Senna/Docusate Sodium [Senokot-S] 2 tab PO BID #30 tab 07/12/20 The following prescriptions were given: Oxycodone [Oxyir] 5 - 10 mg PO Q4H PRN PRN 7 Days #56 tab PRN Reason: Pain Score 4-1010 Prescription Printed Senna/Docusate Sodium [Senokot-S] 2 tab PO BID #30 tab Prescription Printed Acetaminophen [Tylenol] 1,000 mg PO Q8 #30 tab Prescription Printed Rivaroxaban [Xarelto] 10 mg PO DAILY@0600 #6 tab Prescription Printed Primary Care Physician: Otis Mcnair III, MD [Primary Care Provider] - Test Results: Test results from this visit will be discussed in further detail at your follow- up appointment, if applicable. Proposed Discharge Date: 07/12/20
[2020-07-12 08:10] VITALS: O2SAT 97
[2020-07-12 09:00] VITALS: BP 132/57; PULSE 69; RESP 16; TEMP 36.9; O2SAT 97
[2020-07-12] MEDS: buPROPion (XL) 300 MG TABLET.XL PO (09:20)
[2020-07-12] MEDS: Lisinopril 20 MG Tablet PO (09:20)
[2020-07-12] MEDS: amLODIPine 5 MG Tablet PO (09:20)
[2020-07-12] MEDS: Pantoprazole Sodium 20 MG Tablet PO (09:20)
[2020-07-12] MEDS: Carvedilol 3.125 MG TABLET PO (09:20)
[2020-07-12] MEDS: hydroCHLOROthiazide 12.5mg 12.5 MG PO (09:20)
[2020-07-12] MEDS: Sertraline 100 MG Tablet PO (09:20)
[2020-07-12] MEDS: dexAMETHasone 10 MG/ML Vial IV (09:21)
[2020-07-12] MEDS: 0.9% Saline Lock 10 ML Syringe IV (09:21)
--- NOTE | 2020-07-12 10:25 | CASEMGMT ---
Addendum entered by Liborio Vasquez 07/12/20 11:41: Giovanny Jeong RN, pt has been talking with her re: HHC. SIRISHA FLYNN to talk with pt again and inquired about HHC and if she has changed her mind re: HHC. Pt states she would like [facility] now. Pt provided with list of local [facility] agencies and she prefers [facility]. Call placed to Sana @ [facility] and referral made. She was made aware pt is discharging today. She states they are able to accept pt and start of care will be tomorrow 07/13. Pt made aware. Pt made aware appt @ [facility] can be cancelled for her if she would like and she states she would appreciate this. Joel, corporation secretary, made aware and is cancelling appt now. Pt made aware. Original Note: RN CM PAY STATION COLLECTOR CM to room to meet with patient for initial transition planning/care coordination assessment. RN GEE introduced self and role at [facility]. Pt voices understanding and consents to assessment at this time. Pt resting in bed in no distress at this time. Pt is A/O at this time and answers all questions appropriately. Care providers, pharmacy, and demographics verified/updated at this time. PCP: Dr Mino Mcnair Specialists: Dr Nito Viveros Preferred Pharmacy: [facility] Retail Insurance: [employer] [facility] Prescription Benefit: Yes Living Will/HPOA: Has a LW and Healthcare POA, which is on E-file @ [facility] and is dated for 2000. POA on file is listed as her daughter, Che Gastelum. Pt states we don't know where my daughter is and states wants to complete new Healthcare POA paperwork and would like her ex-, Tamir, to be her POA. SW, Che Saab, made aware pt would like to complete new Healthcare POA paperwork. Pt also given [employer] card and made aware, if SW unable to meet with her today prior to her discharge, that AD can be completed as an out-pt. Pt voices understanding. LNOK: Ex , Tamir. 16-yr-old grandson, Miguelito. (Pt has a daughter, Che Gastelum, but she does not know where she is as stated above. Pt states also had a son, who was murdered 20 yrs ago). Living Arrangements: 16-yr-old grandson, Miguelito, lives with her. Pt lives in a one-story home w/2 steps to enter. Pt states her GS goes to school on Sat and , so she will be home alone while he is gone, but she states she feels like she can get around well enough on her own to the bathroom and to get meals. Transportation: ex-, Tamir, will take pt home @ discharge and able to assist with transportation to appts, grocery store, etc. Grandelmer has his permit and able to assist at times as well. Pt also states her [id number] can assist if needed. DME: States has the following DME: rails/grab bars, walker. Tamir has a shower chair she plans to use. Pt states no need for further DME at this time. HHC/SNF: No history of either. Pt states she wishes to return home and go to OP therapy @ [facility]. Declines need for HHC. Pt aware appt for OP therapy is scheduled for 07/14 @ 1 PM. Pt states may need to change this. Pt states she has the phone number to [facility] and will call and change it if needed. CM to follow for any further discharge planning/needs. Pt voices no further concerns/needs at this time. Advised pt to ask for CM if any further questions/concerns/needs arise. Voices understanding. PLAN: Home w/OP therapy @ [facility] and family support. JAMIN for AD completion. Irineo CORRALES RN CM
--- NOTE | 2020-07-12 11:05 | CASEMGMT ---
Social Work Note SW received referral for advanced directives. SW in to speak with pt. SW introduced self and role at [facility]. SW spoke with pt regarding advanced directives. Pt states she would like to take documents home and complete them at a later time. SW reiterated to pt that she may call social work specialist on rack card to arrange an appointment to assist with advanced directives if she would like to. Pt states understanding. SW provided advanced directives documents to pt. Che Saab THERAPY TECH, CARBURETOR REBUILDER
--- NOTE | 2020-07-12 11:26 | PHA.DC.MC ---
Pharmacy Service has performed discharge medication reconciliation and counseling for this patient. The patient was counseled on the following discharge medications and changes in medications for homegoing were reviewed. 1. XARELTO 2. OXYCODONE 3. TYLENOL 4. SENNA/DOCUSATE The Reason for Use, instructions for use, and potential side effects were reviewed for all new medications. The patient's questions regarding all of their medications were answered. The patient was able to verbally demonstrate an understanding of their discharge medications. Home Medications Omeprazole [Prilosec] 20 mg PO BID 03/20/14 Clonazepam [Klonopin] 0.5 mg PO TID PRN PRN 09/05/14 buPROPion XL [Wellbutrin Xl] 300 mg PO DAILY 08/10/16 simvastatin 20 mg tablet 20 mg PO QHS 02/18/19 Amlodipine Besylate [Norvasc] 5 mg PO DAILY 06/23/20 Carvedilol 3.125 mg PO BID 06/23/20 DiphenhydrAMINE [Benadryl] 25 mg PO QHS PRN PRN 06/23/20 Hydrochlorothiazide 12.5 mg PO DAILY 06/23/20 quinapril 20 mg tablet 20 mg PO DAILY tab 07/05/20 sertraline 100 mg tablet 100 mg PO DAILY tab 07/05/20 Acetaminophen [Tylenol] 1,000 mg PO Q8 #30 tab 07/12/20 Oxycodone [Oxyir] 5 - 10 mg PO Q4H PRN PRN 7 Days #56 tab 07/12/20 Rivaroxaban [Xarelto] 10 mg PO DAILY@0600 #6 tab 07/12/20 Senna/Docusate Sodium [Senokot-S] 2 tab PO BID #30 tab 07/12/20 The patient's discharge medication list was reviewed for discrepancies and discrepancies were resolved.
[2020-07-12 13:00] VITALS: BP 112/82; PULSE 68; RESP 16; TEMP 36.6; O2SAT 93
--- NOTE | 2020-07-12 13:03 | PCM.PROGNOTE ---
<Cynthia Ureña PROFILING MACHINE OPERATOR - Last Filed: 07/12/20 13:27> Subjective: Patient seen and examined. States she ambulated in the [place] without significant pain. Hoping to return home later today. Denies other symptoms or complaints. - Physical Exam Vitals/I&O's: Vital Signs Temp Pulse Resp BP Pulse Ox 98.4 F 69 16 132/57 H 97 07/12/20 09:00 07/12/20 09:00 07/12/20 09:00 07/12/20 09:00 07/12/20 09:00 Oxygen Flow Rate (L/min) 2 Oxygen Delivery Method Room Air Weight: 145 lb 8.081 oz Body Mass Index (BMI) 22.1 Intake and Output for Last 24 Hours 07/10/20 07/11/20 07/12/20 23:59 23:59 23:59 Intake Total 3060.66 / 3060.66 1697.92 / 1697.92 Output Total 200 / 200 950 / 950 Balance 2860.66 / 2860.66 747.92 / 747.92 General: Alert, Oriented x3, Cooperative HEENT: Atraumatic, PERRLA, EOMI, Normocephalic Neck: Supple, No JVD, Negative Carotid Bruits Lungs: Clear to auscultation, Normal air movement Cardiovascular: Regular rate, No murmurs Abdomen: Bowel Sounds Present, Soft, Non Tender Extremities: No clubbing, No cyanosis, Edema - Right knee Skin: - - Right knee postop incisions intact. Musculoskeletal: No Tenderness to Palpation of Joints or Extremities Neurological: Cranial nerves II-XII grossly intact, Neuro grossly intact Psych/Mental Status: Normal Affect, Appropriate Laboratory Results 07/12/20 05:48: WBC 10.9, RBC 3.12 L, Hgb 9.5 L, Hct 27.6 L, MCV 88.5, MCH 30.4, MCHC 34.4, RDW Std Deviation 36.4, RDW Coeff of Hiwot 11.5 L, Plt Count 189, MPV 10.2 07/12/20 05:48: Sodium 133 L, Potassium 3.3 L, Chloride 97 L, Carbon Dioxide 30.0, Anion Gap 6, BUN 14, Creatinine 0.92, Estim Creat Clear Calc 51.66, Est GFR (MDRD) Af Amer 76, Est GFR (MDRD) Non-Af 63, BUN/Creatinine Ratio 15.2, Glucose 110 H, Calcium 8.8 Current Medications Acetaminophen (Tylenol) 1,000 mg PO Q8 [facility] Last Admin: 07/12/20 06:24 Dose: 1,000 mg Documented by: Amlodipine Besylate (Norvasc) 5 mg PO DAILY [facility] Last Admin: 07/12/20 09:20 Dose: 5 mg Documented by: Bupropion HCl (Wellbutrin Xl) 300 mg PO DAILY [facility] Last Admin: 07/12/20 09:20 Dose: 300 mg Documented by: Carvedilol (Coreg) 3.125 mg PO BID [facility] Last Admin: 07/12/20 09:20 Dose: 3.125 mg Documented by: Clonazepam (Klonopin) 0.5 mg PO TID PRN PRN PRN Reason: ANXIETY Diphenhydramine HCl (Benadryl) 25 mg PO QHS PRN PRN PRN Reason: SLEEP Hydrochlorothiazide () 12.5 mg PO DAILY [facility] Last Admin: 07/12/20 09:20 Dose: 12.5 mg Documented by: Lactated Ringer's () 1,000 mls @ 125 mls/hr IV .Q8H [facility] Last Infusion: 07/12/20 04:53 Dose: 0 mls/hr Documented by: Sodium Chloride () 250 mls @ 15 mls/hr IV .[id number] PRN PRN Reason: Additional IVPB Infusion Insulin Human Lispro (Humalog Kwikpen (Bkc)) 1 - 6 unit SC Q4H PRN PRN; Protocol PRN Reason: BG>/= 180, SEE PROTOCOL Lisinopril (Zestril) 20 mg PO DAILY [facility] Last Admin: 07/12/20 09:20 Dose: 20 mg Documented by: Morphine Sulfate () 2 - 4 mg IV Q2H PRN PRN PRN Reason: Pain Score 6-10/10 Morphine Sulfate () 2 - 4 mg IV Q2H PRN PRN PRN Reason: Pain Score 6-10/10 Ondansetron HCl (Zofran) 4 mg IV Q8H PRN PRN PRN Reason: NAUSEA Oxycodone HCl (Oxyir) 5 - 10 mg PO Q4H PRN PRN PRN Reason: Pain Score 4-10/10 Last Admin: 07/12/20 10:59 Dose: 5 mg Documented by: Pantoprazole Sodium (Protonix) 20 mg PO BID [facility] Last Admin: 07/12/20 09:20 Dose: 20 mg Documented by: Promethazine HCl (Phenergan) 12.5 mg IM Q6H PRN PRN; Protocol PRN Reason: NAUSEA/VOMITING Rivaroxaban (Xarelto) 10 mg PO DAILY@0600 [facility] Last Admin: 07/12/20 06:23 Dose: 10 mg Documented by: Senna/Docusate Sodium (Senokot-S, Glenna-Colace) 2 tablet PO BID [facility] Last Admin: 07/12/20 10:58 Dose: Not Given Documented by: Sertraline HCl (Zoloft) 100 mg PO DAILY [facility] Last Admin: 07/12/20 09:20 Dose: 100 mg Documented by: Simvastatin (Zocor) 20 mg PO QHS [facility] Last Admin: 07/11/20 21:04 Dose: 20 mg Documented by: Sodium Chloride () 10 - 40 ml IV UD PRN PRN Reason: SALINE FLUSH Last Admin: 07/12/20 09:21 Dose: 10 ml Documented by: Medical Necessity - Tobacco Use Smoking Status: Former smoker Assessment/Plan 1. Postop day #1 right total knee replacement-PT/OT. PRN pain regimen. Management per Ortho. 2. Hypertension-stable, continue amlodipine, carvedilol, hydrochlorothiazide, quinapril. 3. Hyperlipidemia-continue statin. 4. Mitral valve prolapse-echo December 2019 with mild mitral valve prolapse. EF 60%, stage I diastolic dysfunction. 5. Ulcerative colitis 6. GERD-continue PPI. 7. Depression/anxiety-continue bupropion, clonazepam, sertraline. 8. Acute blood loss anemia, expected outcome related to #1- stable. Recommend repeat CBC as outpatient. DVT prophylaxis- SCDs Okay for discharge from medical standpoint. This patient was seen by DUANE Barry under the supervision of Dr. Canales. <Grzegorz Canales F - Last Filed: 07/12/20 14:14> - Physical Exam Vitals/I&O's: Vital Signs Temp Pulse Resp BP Pulse Ox 98.4 F 69 16 132/57 H 97 07/12/20 09:00 07/12/20 09:00 07/12/20 09:00 07/12/20 09:00 07/12/20 09:00 Oxygen Flow Rate (L/min) 2 Oxygen Delivery Method Room Air Weight: 145 lb 8.081 oz Body Mass Index (BMI) 22.1 Intake and Output for Last 24 Hours 07/10/20 07/11/20 07/12/20 23:59 23:59 23:59 Intake Total 3060.66 / 3060.66 1697.92 / 1697.92 Output Total 200 / 200 950 / 950 Balance 2860.66 / 2860.66 747.92 / 747.92 Laboratory Results 07/12/20 05:48: WBC 10.9, RBC 3.12 L, Hgb 9.5 L, Hct 27.6 L, MCV 88.5, MCH 30.4, MCHC 34.4, RDW Std Deviation 36.4, RDW Coeff of Hiwot 11.5 L, Plt Count 189, MPV 10.2 07/12/20 05:48: Sodium 133 L, Potassium 3.3 L, Chloride 97 L, Carbon Dioxide 30.0, Anion Gap 6, BUN 14, Creatinine 0.92, Estim Creat Clear Calc 51.66, Est GFR (MDRD) Af Amer 76, Est GFR (MDRD) Non-Af 63, BUN/Creatinine Ratio 15.2, Glucose 110 H, Calcium 8.8 Current Medications Acetaminophen (Tylenol) 1,000 mg PO Q8 [facility] Last Admin: 07/12/20 13:47 Dose: 1,000 mg Documented by: Amlodipine Besylate (Norvasc) 5 mg PO DAILY [facility] Last Admin: 07/12/20 09:20 Dose: 5 mg Documented by: Bupropion HCl (Wellbutrin Xl) 300 mg PO DAILY [facility] Last Admin: 07/12/20 09:20 Dose: 300 mg Documented by: Carvedilol (Coreg) 3.125 mg PO BID [facility] Last Admin: 07/12/20 09:20 Dose: 3.125 mg Documented by: Clonazepam (Klonopin) 0.5 mg PO TID PRN PRN PRN Reason: ANXIETY Diphenhydramine HCl (Benadryl) 25 mg PO QHS PRN PRN PRN Reason: SLEEP Hydrochlorothiazide () 12.5 mg PO DAILY [facility] Last Admin: 07/12/20 09:20 Dose: 12.5 mg Documented by: Lactated Ringer's () 1,000 mls @ 125 mls/hr IV .Q8H [facility] Last Infusion: 07/12/20 04:53 Dose: 0 mls/hr Documented by: Sodium Chloride () 250 mls @ 15 mls/hr IV .[id number] PRN PRN Reason: Additional IVPB Infusion Insulin Human Lispro (Humalog Kwikpen (Bkc)) 1 - 6 unit SC Q4H PRN PRN; Protocol PRN Reason: BG>/= 180, SEE PROTOCOL Lisinopril (Zestril) 20 mg PO DAILY [facility] Last Admin: 07/12/20 09:20 Dose: 20 mg Documented by: Morphine Sulfate () 2 - 4 mg IV Q2H PRN PRN PRN Reason: Pain Score 6-10/10 Morphine Sulfate () 2 - 4 mg IV Q2H PRN PRN PRN Reason: Pain Score 6-10/10 Ondansetron HCl (Zofran) 4 mg IV Q8H PRN PRN PRN Reason: NAUSEA Oxycodone HCl (Oxyir) 5 - 10 mg PO Q4H PRN PRN PRN Reason: Pain Score 4-10/10 Last Admin: 07/12/20 10:59 Dose: 5 mg Documented by: Pantoprazole Sodium (Protonix) 20 mg PO BID [facility] Last Admin: 07/12/20 09:20 Dose: 20 mg Documented by: Promethazine HCl (Phenergan) 12.5 mg IM Q6H PRN PRN; Protocol PRN Reason: NAUSEA/VOMITING Rivaroxaban (Xarelto) 10 mg PO DAILY@0600 [facility] Last Admin: 07/12/20 06:23 Dose: 10 mg Documented by: Senna/Docusate Sodium (Senokot-S, Glenna-Colace) 2 tablet PO BID [facility] Last Admin: 07/12/20 10:58 Dose: Not Given Documented by: Sertraline HCl (Zoloft) 100 mg PO DAILY [facility] Last Admin: 07/12/20 09:20 Dose: 100 mg Documented by: Simvastatin (Zocor) 20 mg PO QHS [facility] Last Admin: 07/11/20 21:04 Dose: 20 mg Documented by: Sodium Chloride () 10 - 40 ml IV UD PRN PRN Reason: SALINE FLUSH Last Admin: 07/12/20 09:21 Dose: 10 ml Documented by: Addendum: Dr. Canales I personally examined the patient and reviewed the chart. I agree with the above. 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 She tolerated the procedure well and has no significant complaints this morning. Her chronic medical conditions are well controlled. She can follow-up with her PCP in 3 to 5 days as well as orthopedic surgery as previously scheduled. From medical standpoint she is okay for discharge. OBSV E&M: 84018 Subsequent observation care L2
--- NOTE | 2020-07-12 16:07 | CASEMGMT ---
SIRISHA FLYNN NOTE: Pt has been discharged home. Call received from Sana @ [facility]. She states pt is now declining [facility] services. Sana is aware pt's original plan was for OP therapy @ [facility] on and that that appt has been cancelled. Sana states that Dre, [facility] PT, is planning on following up with pt tomorrow. Irineo CORRALES RN CM
== END 2020-07-12 14:30 | disposition home health service (06) ==
LOC: SDC 09:42 → MS3 09:42
PROVIDERS: Anesthesiology; Admitting Provider Orthopaedic Surgery; PCP Family Medicine; Referring Provider Orthopaedic Surgery; Visit Provider Family Medicine
PROC: 0SRC0JZ Replacement of Right Knee Joint with Synthetic Substitute, Open Approach (ICD-10-PCS; CPT 27447; principal; 2020-07-11 07:00)
DX: M17.11 Unilateral primary osteoarthritis, right knee (principal); Z11.59 Encounter for screening for other viral diseases; I10 Essential (primary) hypertension; K21.9 Gastro-esophageal reflux disease without esophagitis; K51.90 Ulcerative colitis, unspecified, without complications; F41.9 Anxiety disorder, unspecified; F32.9 Major depressive disorder, single episode, unspecified; E87.6 Hypokalemia; E78.5 Hyperlipidemia, unspecified; Z79.899 Other long term (current) drug therapy; Z79.82 Long term (current) use of aspirin; Z87.891 Personal history of nicotine dependence
CPT/HCPCS: 01400; 27447; S2900; 36415; 71046; 73560; 80048; 82962; 83735; 85027; 87081; 87635; 88305; 88311; 93005; 96361; 96365; 96366; 96375; 97110; 97116; 97161; 97166; 97530; 99218; C1776; C9803; J7120; A4216; G0378; G0379; J2405; U0003

== ENCOUNTER 2020-07-13 08:16 | Inpatient (IN) | payer MEDICARE, SELFPAY ==
[2020-07-11 11:28] VITALS: BMI 22.1
[2020-07-13 08:16] VITALS: BP 118/78; PULSE 81; RESP 18; TEMP 37.3; O2SAT 94; BMI 27.3
--- NOTE | 2020-07-13 08:25 | CT_ITS ---
STUDY: CT BRAIN WITHOUT CONTRAST REASON FOR EXAM: Female, 79 years old. FALL, TKA ON SATURDAY, PT HIT HEAD, ON THINNER RADIATION DOSAGE (If Supplied By Facility): CTDIvol = ( 44.99 ) mGy, DLP = ( 796.11 ) mGycm TECHNIQUE: Transaxial CT imaging of the brain was performed without administration of intravenous contrast material. Individualized dose optimization techniques were used for this CT. COMPARISON: Comparison is made with prior examination dated 11/07/2015. FINDINGS: Normal soft tissue structures. Normal calvarium. There is mild cerebral atrophy with widening of the extra-axial spaces and ventricular dilatation. There are areas of decreased attenuation within the white matter tracts of the supratentorial brain, consistent with microvascular disease changes. Normal basal ganglia and thalami. Normal brainstem. Normal cerebellum. There is no intracranial hemorrhage. There are no findings of an acute ischemic infarction. Atherosclerotic calcification of the vertebral arteries and cavernous portions of the internal carotid arteries bilaterally. Mucosal thickening of the right sphenoid sinus. Minimal mucosal thickening at the base of the right maxillary sinus. CT/Brain/Head without Contrast IMPRESSION: Chronic involutional changes of the brain. Mucosal thickening of the right sphenoid and right maxillary sinus. Electronically Signed: Rancho Simpson, at 9:28 EDT , Service support ,
--- NOTE | 2020-07-13 08:28 | ED.VISSUMM ---
- ER Visit Summary Date of Service: 07/13/20 Chief Complaint: Falls History of Present Illness: The patient is a 79 F status post right knee replacement done on Saturday discharge from the hospital on Saturday. She is just been home less than a day and says she is fallen 4 or 5 times. States that she is on the blood thinner Xarelto postop and she did hit her head during 1 of the falls. Denies any severe headache. Her neck pain. No other injuries. Physical Examination: Older female no acute distress vital signs are stable and afebrile. She does not look septic or toxic. H EENT exam give dry reactive light no facial trauma. Mild tenderness right lateral scalp but no significant hematoma. No lacerations. C-spine nontender. Trachea midline. Lungs clear to auscultation bilaterally. Heart regular rhythm rate about 70 no murmur. Abdomen soft nontender. Pelvic girdle intact. Right knee status post replacement with healing midline incision. There is some blood at the site. But the wound is closed. Dorsi plantarflexion intact. No shortening or rotation of either hip. Neurologically she is awake and alert. Moving all 4 extremities. Acting appropriately. Back is nontender. Test Results: Deep brain showed chronic changes no acute process. Read by the radiologist reviewed by me. Pelvis right hip x-ray showed no acute abnormality. No fracture or dislocation. CBC shows a white count of 14. Hemoglobin of 9.9 which is patient's baseline. No bands. Electrolytes lites show sodium of 128 that is lower than the most recent 133. Normal BUN and creatinine and gap. Emergency Department Course and Treatment: Older female status post right knee replacement. Multiple falls since she was discharged on Saturday. CAT scan and labs. She will be ambulated to assess her gait. Treatment Plan: Patient was able to ambulate. She was very distracted. 16-year-old grandson was in the room spoke to the nurses that he is unable to care for her at home. In light of that and her frequent falls I spoke to the hospitalist about admission. Disposition: Observation Impression: Multiple falls Mild hyponatremia Failure to thrive Closed head injury on blood thinner Xarelto Status post right knee replacement This note was generated with I-lightingation software. It may contain incorrect words, spelling, and punctuation that were not noted in review of the chart prior to signing ED Disposition - Plan for ED Patient: Referrals: Otis Mcnair III, MD [Primary Care Provider] -
[2020-07-13 08:59] LABS: Absolute Lymphocyte Count 1.17 X10^3/uL (0.83-4.51); Absolute Neutrophil Count 11.6 X10^3/uL (2.0-7.7); Basophil# 0.03 X10^3/uL; Basophil% 0.2 % (0-1); Eosinophil# 0.02 X10^3/uL; Eosinophils% 0.1 % (0-5); Hematocrit 27.9 % (37-47); Hemoglobin 9.9 g/dL (12.0-15.0); Lymphocyte # 1.17 X10^3/ul (4.0); Lymphocyte % 8.2 % (19-41); Mean Corp Hgb Conc 35.5 g/dL (32-36); Mean Corpuscular Hgb 30.8 pg (27.0-32.0); Mean Corpuscular Volume 86.9 fL (81-99); Mean Platelet Vol. 10.8 fl (6.2-12.0); Monocyte# 1.31 X10^3/uL; Monocyte% 9.2 % (0-10); NRBC Flagged by Analyzer 0 % (0-5); Neutrophil # 11.61 X10^3/uL (2.7-7.7); Neutrophil % 81.8 % (47-70); Platelet Count 188 K/mm3 (150-450); RBC Distribution Width CV 11.5 % (11.6-14.6); RBC Distribution Width SD 36.3 fl (35.1-43.9); Red Blood Count 3.21 M/mm3 (4.2-5.4); White Blood Count 14.2 K/mm3 (4.4-11.0)
[2020-07-13 09:07] LABS: Anion Gap 7 (5-15); BUN 16 mg/dL (7-18); Calcium,Total 9.9 mg/dL (8.5-10.1); Chloride 94 mmol/L (98-107); Creatinine, Serum 0.84 mg/dL (0.55-1.02); EST Glomerular Filtration Rate 70 mL/min (>60); Est Glom Filt Rate - Afr Amer 84 mL/min (>60); Estimated Creatinine Clearance 48.43 ml/min; Glucose 102 mg/dL (74-106); Potassium 3.2 mmol/L (3.5-5.1); Sodium Level 128 mmol/L (136-145)
--- NOTE | 2020-07-13 09:14 | RAD_ITS ---
STUDY: X-RAY - PELVIS AND RIGHT HIP REASON FOR EXAM: Female, 79 years old. HAD TOTAL KNEE REPLACEMENT ON SATURDAY. 2 FALLS SINCE. RIGHT HIP PAIN TECHNIQUE: 3 views of the pelvis and hip. COMPARISON: None. FINDINGS: There is a non-specific bowel gas pattern. Normal visualized soft tissue structures. Normal bilateral iliac wings, sacroiliac joints and visualized sacrum. Normal bilateral superior and inferior pubic rami. Normal pubic symphysis. Normal bilateral ischial tuberosities. Normal visualized femoral head. There is osteoarthritic spur formation of the acetabular rim. There is mild articular joint space narrowing of the hip. RAD/HIP, UNI W/ Pelvis 2-3 Views IMPRESSION: Mild degree of the degenerative changes of the hip joint. Electronically Signed: Rancho Simpson, at 9:28 EDT , Service support ,
--- NOTE | 2020-07-13 09:54 | ED.RN ---
RIGHT KNEE SURGICAL INCISION CLEANED AND DRESSED WITH 4X10 MEPILEX DRESSING. PT TOLERATED WELL. NONSTICK GAUZE ADDED TO AREA OF ACTIVE BLEEDING, WHICH WAS LIGHT.
[2020-07-13 10:41] VITALS: BP 115/76; PULSE 85; RESP 18; O2SAT 92
--- NOTE | 2020-07-13 10:58 | NURSING ---
DR KARMEN MASON BACK FOR DR HERNANDEZ
--- NOTE | 2020-07-13 12:36 | PCM.PN.ORT ---
Subjective: This 79-year-old female underwent a right total knee replacement 2 days ago on Saturday, July 11, 2020. She was discharged home yesterday afternoon. She was alone at home she admits that she fell out of bed 2 times. She does not recall landing directly on the right knee. This morning her grandson found her and he called the squad. She was brought to the emergency department. She does not recall hitting her head or passing out. She was complaining of right hip pain. She had pelvis and right hip imaging. She had a CT scan of her brain. She has not had any significant increased pain in her right knee but she has had active bleeding. Patient seems somewhat confused but does recall having right total knee replacement. No fevers chills or other signs of infection. No numbness or tingling into her feet at this time. Objective: Inspection of right knee is with moderate swelling and 3 anterior incisions with jocelyne intact. There is moderate bloody saturation of the pre-existing dressing. The dressing was removed from the right knee. Without expressible active drainage at this time. Knee was without significant tenderness to palpation. Knee range of motion was deferred. Negative valgus/varus stress test on the right. A dry sterile dressing was applied with an Amadou wrap to the right knee. Patient tolerated procedure well. Negative Ronaldo bilaterally without signs of DVT. Patient is able to actively plantar and dorsiflex bilateral ankles against resistance. Neurovascularly intact X-rays of pelvis and right hip taken today [facility] discussed and reviewed with Dr. Nito Viveros without fracture dislocation lytic or blastic lesions. Degenerative changes about the right hip noted CT scan of the brain was reviewed with Dr. Nito Viveros. - Physical Exam Vitals/I&O's: Vital Signs Temp Pulse Resp BP Pulse Ox 99.1 F 85 18 115/76 92 07/13/20 08:16 07/13/20 10:41 07/13/20 10:41 07/13/20 10:41 07/13/20 10:41 Oxygen Delivery Method Room Air Weight: 72.2 kg Body Mass Index (BMI) 27.3 Laboratory Results 07/13/20 08:40: WBC 14.2 H, RBC 3.21 L, Hgb 9.9 L, Hct 27.9 L, MCV 86.9, MCH 30.8, MCHC 35.5, RDW Std Deviation 36.3, RDW Coeff of Hiwot 11.5 L, Plt Count 188, MPV 10.8, Immature Gran % (Auto) 0.500, Neut % (Auto) 81.8 H, Lymph % (Auto) 8.2 L, [place] % (Auto) 9.2, Eos % (Auto) 0.1, Baso % (Auto) 0.2, Absolute Neuts (auto) 11.6 H, Absolute Lymphs (auto) 1.17, Nucleated RBC % 0 / 08:40: Sodium 128 L, Potassium 3.2 L, Chloride 94 L, Carbon Dioxide 27.0, Anion Gap 7, BUN 16, Creatinine 0.84, Estim Creat Clear Calc 48.43, Est GFR (MDRD) Af Amer 84, Est GFR (MDRD) Non-Af 70, BUN/Creatinine Ratio 19.0, Glucose 102, Calcium 9.9 Medical Necessity - Tobacco Use Smoking Status: Former smoker Assessment/Plan Assessment/plan Patient is now postop day 2 from a right total knee replacement. Due to fall and increased bleeding from the surgical site we will order x-rays of the right knee 2 views. She will be nonweightbearing on the right lower extremity at this time. We will avoid physical therapy keeping her right knee in extension until further evaluation tomorrow. If the bleeding/drainage has stopped we will resume physical therapy at that time. She will continue with Xarelto for DVT prophylaxis. We will review x-rays later today and follow-up again tomorrow due to fall risk postsurgically and lack of family at home I think the patient would eventually benefit from discharge to alf
[2020-07-13 12:48] VITALS: BMI 23.3; BMI 23.4
--- NOTE | 2020-07-13 12:55 | RAD_ITS ---
STUDY: X-RAY - RIGHT KNEE REASON FOR EXAM: Female, 79 years old. FALL, WEAKNESS TECHNIQUE: 2 view(s) of the knee. COMPARISON: None. FINDINGS: Normal visualized distal femur. Normal visualized proximal tibia and fibula. Normal proximal tibiofibular articulation. The patient is status post total knee replacement. There is good alignment. Postoperative soft tissue changes. Small joint effusion. RAD/Knee 1 or 2 Views IMPRESSION: Status post total knee replacement. There is good alignment. Postoperative soft tissue changes. Small joint effusion. Electronically Signed: Rancho Simpson, at 15:00 EDT , Service support ,
[2020-07-13 13:00] VITALS: BP 142/53; PULSE 73; RESP 18; TEMP 37.2; O2SAT 94
--- NOTE | 2020-07-13 14:03 | HP.PCM_ITS ---
<Cynthia Ureña QUALITY CONTROL TECH RAW [employer]S - Last Filed: 07/13/20 14:29> Problem List (1) Nonrheumatic mitral (valve) prolapse Status: Chronic (2) Benign essential hypertension Status: Chronic (3) Dyslipidemia Status: Chronic History of Present Illness Date of Admission: 07/13/20 Chief Complaint: Multiple falls at home, recent right total knee replacement 07/11. The patient is a 79 year old F who presents emergency room due to multiple falls at home. Patient underwent right total knee replacement 07/11/2020. Patient discharged 07/12/2020 and had been doing well with therapy. Patient states she has fallen multiple times at home. Grandson who lives with patient noted that patient had been hallucinating and seemed confused. Patient denies hitting her head or other injury. States her right knee incisions have been bleeding. Denies neurologic symptoms or focal deficits. Patient states she just had no balance. States she feels her grandson should take some classes to help take care of her. She has a past medical history of hypertension, hyperlipidemia, mitral valve prolapse, ulcerative colitis, GERD, depression, anxiety. Past Medical History Past Medical History (Chronic Problems): Chronic Problems (Last Reviewed 07/05/20 @ 10:[address] Fco Cardona MD) Nonrheumatic mitral (valve) prolapse (Chronic) Benign essential hypertension (Chronic) Dyslipidemia (Chronic) Medical History: Medical History (Last Reviewed 07/05/20 @ 10:[address] Fco Cardona MD) Nonrheumatic mitral (valve) prolapse (Chronic) I34.1 Benign essential hypertension (Chronic) I10 Dyslipidemia (Chronic) E78.5 Collagenous colitis K52.831 Depression F32.9 Atherosclerosis of coronary artery of [place] heart without angina pectoris (Inactive) I25.10 Allergies atorvastatin calcium [From Lipitor] Allergy (Verified 07/13/20 08:21) Unknown Beta-Blockers (Beta-Adrenergic Bloc Allergy (Verified 07/13/20 08:21) Unknown cefaclor [From Ceclor] Allergy (Verified 07/13/20 08:21) Unknown Sulfa (Sulfonamide Antibiotics) Allergy (Verified 07/13/20 08:21) Hives Tetracyclines Allergy (Verified 07/13/20 08:21) Unknown propoxyphene [From Darvon] Adverse Reaction (Verified 07/13/20 08:21) Nausea Home Medications: Ambulatory Orders Medication Instructions Recorded Omeprazole [Prilosec] 20 mg PO BID 03/20/14 Clonazepam [Klonopin] 0.5 mg PO TID PRN PRN 09/05/14 buPROPion XL [Wellbutrin Xl] 300 mg PO DAILY 08/10/16 simvastatin 20 mg tablet 20 mg PO QHS 02/18/19 Amlodipine Besylate [Norvasc] 5 mg PO DAILY 06/23/20 Carvedilol 3.125 mg PO BID 06/23/20 DiphenhydrAMINE [Benadryl] 25 mg PO QHS PRN PRN 06/23/20 Hydrochlorothiazide 12.5 mg PO DAILY 06/23/20 quinapril 20 mg tablet 20 mg PO DAILY tab 07/05/20 sertraline 100 mg tablet 100 mg PO DAILY tab 07/05/20 Oxycodone [Oxyir] 5 - 10 mg PO Q4H PRN PRN 7 Days 07/12/20 #56 tab Rivaroxaban [Xarelto] 10 mg PO DAILY@0600 #6 tab 07/12/20 Senna/Docusate Sodium [Senokot-S] 2 tab PO BID #30 tab 07/12/20 Acetaminophen [Tylenol] 1,000 mg PO Q8 07/13/20 Surgical History: Surgical History (Last Reviewed 07/05/20 @ 10:[address] Fco Cardona MD) H/O arthroscopic knee surgery Z98.890 History of cataract surgery Z98.49 History of hysterectomy Z90.710 History of left heart catheterization Onset Date: 11/01/14 Z98.890 05/22/04, 11/01/2014 History of tonsillectomy Z90.89 History of tubal ligation Z98.51 Surgical History: arthroscopy, knee, cataract, hysterectomy, tonsillectomy, - - Right total knee replacement Psychiatric History: Anxiety, Depression MANAGER INSTALLATION History: No pertinent MANAGER INSTALLATION history Lives: Spouse/ Significant Other Smoking Status: Former smoker Tobacco Use: Cigarettes Alcohol: None Drugs: None - *Family History Maternal Family History: Family History (Last Reviewed 07/13/20 @ 14:05 by Cynthia Ureña NP, QUALITY CONTROL TECH [employer]-C) Father CAD (coronary artery disease) Myocardial infarction Hypertension Mother Hypertension Myocardial infarction CAD (coronary artery disease) Paternal Family History: Family History (Last Reviewed 07/13/20 @ 14:05 by Cynthia Ureña NP, QUALITY CONTROL TECH [employer]-C) Father CAD (coronary artery disease) Myocardial infarction Hypertension Mother Hypertension Myocardial infarction CAD (coronary artery disease) Review of Systems Constitutional: Reports: Weakness. Denies: Chills, Fever, Weight Change HEENT: Denies: Head Aches, Sinus Congestion, Sinus Drainage Cardiovascular: Denies: Chest Pain, Palpitations Respiratory: Denies: Cough, Shortness of breath at rest, Sputum production Gastrointestinal: Denies: Abdominal Pain, Nausea, Vomiting Genitourinary: Denies: Dysuria Musculoskeletal: Reports: - - Right knee pain. Denies: Joint Pain, Joint Tenderness Skin: Reports: - - Right knee postop incisions Neurological: Denies: Numbness, Tingling, Focal weakness Psychiatric: Reports: Anxiety, Depression Hematologic/ Lymphatic: Denies: Easy Bruising, Easy Bleeding VTE Information - Inpt Only VTE Present on Admission: No VTE Mechan Device Prophylaxis: None VTE Pharm Prophylaxis ordered?: Yes - Physical Exam Vitals/I&O's: Vital Signs Temp Pulse Resp BP Pulse Ox 99 F 73 18 142/53 H 94 07/13/20 13:00 07/13/20 13:00 07/13/20 13:00 07/13/20 13:00 07/13/20 13:00 Oxygen Delivery Method Room Air Weight: 153 lb 14.122 oz Body Mass Index (BMI) 23.3 General: Alert, Oriented x3, Cooperative HEENT: Atraumatic, PERRLA, EOMI, Normocephalic Neck: Supple, No JVD, Negative Carotid Bruits Lungs: Clear to auscultation, Normal air movement Cardiovascular: Regular rate, No murmurs Abdomen: Bowel Sounds Present, Soft, Non Tender, Non-Distended Extremities: No clubbing, No cyanosis, No edema, Capillary Refill Less than 3 Seconds Skin: No rashes, No breakdown, - - Right knee postop incisions intact Musculoskeletal: No Tenderness to Palpation of Joints or Extremities Neurological: Cranial nerves II-XII grossly intact, Neuro grossly intact Psych/Mental Status: Normal Affect, Appropriate Laboratory Results 07/13/20 08:40: WBC 14.2 H, RBC 3.21 L, Hgb 9.9 L, Hct 27.9 L, MCV 86.9, MCH 30.8, MCHC 35.5, RDW Std Deviation 36.3, RDW Coeff of [place] 11.5 L, Plt Count 188, MPV 10.8, Immature Gran % (Auto) 0.500, Neut % (Auto) 81.8 H, Lymph % (Auto) 8.2 L, [place] % (Auto) 9.2, Eos % (Auto) 0.1, Baso % (Auto) 0.2, Absolute Neuts (auto) 11.6 H, Absolute Lymphs (auto) 1.17, Nucleated RBC % 0 07/13/20 08:40: Sodium 128 L, Potassium 3.2 L, Chloride 94 L, Carbon Dioxide 27.0, Anion Gap 7, BUN 16, Creatinine 0.84, Estim Creat Clear Calc 48.43, Est GFR (MDRD) Af Amer 84, Est GFR (MDRD) Non-Af 70, BUN/Creatinine Ratio 19.0, Glucose 102, Calcium 9.9 Current Medications Acetaminophen (Tylenol) 650 mg PO Q6H PRN PRN PRN Reason: Pain Score 1-10/Temp > 100.7 F Melatonin (Melatonin) 3 mg PO QHS PRN PRN PRN Reason: INSOMNIA Ondansetron HCl (Zofran) 4 mg IV Q8H PRN PRN PRN Reason: NAUSEA/VOMITING Sodium Chloride () 10 - 40 ml IV UD PRN PRN Reason: SALINE FLUSH Assessment/Plan 1. Debility with multiple falls, recent right total knee replacement 07/11/2020- PT/OT. PRN pain regimen. Orthopedic medicine on consult. Repeat x-rays pending due to multiple falls. Nonweightbearing right lower extremity. Brain CT shows chronic changes. 2. Hypertension-stable, continue amlodipine, carvedilol, hydrochlorothiazide, quinapril. 3. Hyperlipidemia-continue statin. 4. Mitral valve prolapse-echo December 2019 with mild mitral valve prolapse. EF 60%, stage I diastolic dysfunction. 5. Ulcerative colitis 6. GERD-continue PPI. 7. Depression/anxiety-continue bupropion, clonazepam, sertraline. 8. Acute anemia, expected outcome related to #1- stable. Trend CBC. DVT prophylaxis-Xarelto This patient was seen by Cynthia Ureña NP-C under the supervision of Dr. Canales. <ParkerGrzegorz F - Last Filed: 07/13/20 17:46> History of Present Illness The patient is a 79 year old F [] Past Medical History Medical History: Medical History (Last Reviewed 07/05/20 @ 10:[address] Fco Cardona MD) Nonrheumatic mitral (valve) prolapse (Chronic) I34.1 Benign essential hypertension (Chronic) I10 Dyslipidemia (Chronic) E78.5 Collagenous colitis K52.831 Depression F32.9 Atherosclerosis of coronary artery of [facility] heart without angina pectoris (Inactive) I25.10 Allergies atorvastatin calcium [From Lipitor] Allergy (Verified 07/13/20 08:21) Unknown Beta-Blockers (Beta-Adrenergic Bloc Allergy (Verified 07/13/20 08:21) Unknown cefaclor [From Ceclor] Allergy (Verified 07/13/20 08:21) Unknown Sulfa (Sulfonamide Antibiotics) Allergy (Verified 07/13/20 08:21) Hives Tetracyclines Allergy (Verified 07/13/20 08:21) Unknown propoxyphene [From Darvon] Adverse Reaction (Verified 07/13/20 08:21) Nausea Surgical History: Surgical History (Last Reviewed 07/05/20 @ 10:[address] Fco Cardona MD) H/O arthroscopic knee surgery Z98.890 History of cataract surgery Z98.49 History of hysterectomy Z90.710 History of left heart catheterization Onset Date: 11/01/14 Z98.890 05/22/04, 11/01/2014 History of tonsillectomy Z90.89 History of tubal ligation Z98.51 - *Family History Maternal Family History: Family History (Last Reviewed 07/13/20 @ 14:05 by Cynthia Ureña NP, QUALITY CONTROL TECH [employer]-C) Father CAD (coronary artery disease) Myocardial infarction Hypertension Mother Hypertension Myocardial infarction CAD (coronary artery disease) Paternal Family History: Family History (Last Reviewed 07/13/20 @ 14:05 by Cynthia Ureña NP, QUALITY CONTROL TECH RAW MATERIALS-C) Father CAD (coronary artery disease) Myocardial infarction Hypertension Mother Hypertension Myocardial infarction CAD (coronary artery disease) - Physical Exam Vitals/I&O's: Vital Signs Temp Pulse Resp BP Pulse Ox 100.6 F H 79 18 126/58 H 96 07/13/20 17:30 07/13/20 17:30 07/13/20 17:30 07/13/20 17:30 07/13/20 17:30 Oxygen Delivery Method Room Air Weight: 153 lb 14.122 oz Body Mass Index (BMI) 23.3 Intake and Output for Last 24 Hours 07/11/20 07/12/20 07/13/20 23:59 23:59 23:59 Intake Total 360 / 360 Balance 360 / 360 Laboratory Results 07/13/20 08:40: WBC 14.2 H, RBC 3.21 L, Hgb 9.9 L, Hct 27.9 L, MCV 86.9, MCH 30.8, MCHC 35.5, RDW Std Deviation 36.3, RDW Coeff of [place] 11.5 L, Plt Count 188, MPV 10.8, Immature Gran % (Auto) 0.500, Neut % (Auto) 81.8 H, Lymph % (Auto) 8.2 L, [place] % (Auto) 9.2, Eos % (Auto) 0.1, Baso % (Auto) 0.2, Absolute Neuts (auto) 11.6 H, Absolute Lymphs (auto) 1.17, Nucleated RBC % 0 07/13/20 08:40: Sodium 128 L, Potassium 3.2 L, Chloride 94 L, Carbon Dioxide 27.0, Anion Gap 7, BUN 16, Creatinine 0.84, Estim Creat Clear Calc 48.43, Est GFR (MDRD) Af Amer 84, Est GFR (MDRD) Non-Af 70, BUN/Creatinine Ratio 19.0, Glucose 102, Calcium 9.9 Current Medications Acetaminophen (Tylenol) 650 mg PO Q6H PRN PRN PRN Reason: Pain Score 1-10/Temp > 100.7 F Melatonin (Melatonin) 3 mg PO QHS PRN PRN PRN Reason: INSOMNIA Ondansetron HCl (Zofran) 4 mg IV Q8H PRN PRN PRN Reason: NAUSEA/VOMITING Sodium Chloride () 10 - 40 ml IV UD PRN PRN Reason: SALINE FLUSH Addendum: Dr. Canales I personally examined the patient and reviewed the chart. I agree with the above. 79-year-old female presents after being discharged after a right total knee replacement. She states that she went home and that she had 4 5 fall secondary to her left knee giving out. Her son also states that she seemed to be having hallucinations and she did seem to be a little bit slower today this could be secondary to narcotic use therefore this will be limited. We will resume her home meds except for her oxycodone, and her Benadryl. We will have her evaluated by PT/OT for possible rehab placement. Appreciate orthopedic madelyn owen and their consultation. OBSV E&M: [id number] Initial observation care L3
[2020-07-13 17:30] VITALS: BP 126/58; PULSE 79; RESP 18; TEMP 38.1; O2SAT 96
--- NOTE | 2020-07-13 18:29 | PCM.PN.ORT ---
Subjective: Patient states she injured her right knee leaving the hospital on July 11, 2020 when her knee was accidentally struck with a car door. She had increased pain since then. Ultimately developed bleeding. Patient also recalls falling a few times at home landing on the side of her knee. She denies hyperflexing the knee. She denies falling directly on the knee at home. She was brought back to the hospital because of falling. She was admitted to the medical service. X-rays showed probability of the jocelyne being ripped through the skin consistent with a skin tear. Objective: Right knee bandage was changed today. There is a open area with a hematoma measuring about 3-1/2 x 1 cm. It is easily closable. There is no obvious active bleeding. There is no obvious exposed bone or metal. Patient is able to do a straight leg raise against gravity. Knee flexion was not stressed. She had no calf pain. Good active motion toes and ankles. Area was cleaned carefully with Betadine throughout. 4 x 4's ABD pads Kerlix and Amadou wrap is applied. X-rays AP and lateral of right knee shows a press-fit total knee replacement in good position without obvious loosening failure or fracture. Obvious staple failure noted. - Physical Exam Vitals/I&O's: Vital Signs Temp Pulse Resp BP Pulse Ox 100.6 F H 79 18 126/58 H 96 07/13/20 17:30 07/13/20 17:30 07/13/20 17:30 07/13/20 17:30 07/13/20 17:30 Oxygen Delivery Method Room Air Weight: 69.8 kg Body Mass Index (BMI) 23.3 Intake and Output for Last 24 Hours 07/11/20 07/12/20 07/13/20 23:59 23:59 23:59 Intake Total 360 / 360 Balance 360 / 360 Laboratory Results 07/13/20 08:40: WBC 14.2 H, RBC 3.21 L, Hgb 9.9 L, Hct 27.9 L, MCV 86.9, MCH 30.8, MCHC 35.5, RDW Std Deviation 36.3, RDW Coeff of [place] 11.5 L, Plt Count 188, MPV 10.8, Immature Gran % (Auto) 0.500, Neut % (Auto) 81.8 H, Lymph % (Auto) 8.2 L, [place] % (Auto) 9.2, Eos % (Auto) 0.1, Baso % (Auto) 0.2, Absolute Neuts (auto) 11.6 H, Absolute Lymphs (auto) 1.17, Nucleated RBC % 0 07/13/20 08:40: Sodium 128 L, Potassium 3.2 L, Chloride 94 L, Carbon Dioxide 27.0, Anion Gap 7, BUN 16, Creatinine 0.84, Estim Creat Clear Calc 48.43, Est GFR (MDRD) Af Amer 84, Est GFR (MDRD) Non-Af 70, BUN/Creatinine Ratio 19.0, Glucose 102, Calcium 9.9 Current Medications Acetaminophen (Tylenol) 650 mg PO Q6H PRN PRN PRN Reason: Pain Score 1-10/Temp > 100.7 F Amlodipine Besylate (Norvasc) 5 mg PO DAILY [facility] Bupropion HCl (Wellbutrin Xl) 300 mg PO DAILY [facility] Carvedilol (Coreg) 3.125 mg PO BID [facility] Clonazepam (Klonopin) 0.5 mg PO TID PRN PRN PRN Reason: ANXIETY Hydrochlorothiazide () 12.5 mg PO DAILY [facility] Melatonin (Melatonin) 3 mg PO QHS PRN PRN PRN Reason: INSOMNIA Non-Formulary Medication (Omeprazole) 20 mg PO BID [facility] Non-Formulary Medication (Quinapril Hcl [Accupril]) 20 mg PO DAILY [place] Non-Formulary Medication (Simvastatin) 20 mg PO QHS [facility] Ondansetron HCl (Zofran) 4 mg IV Q8H PRN PRN PRN Reason: NAUSEA/VOMITING Rivaroxaban (Xarelto) 10 mg PO DAILY@0600 [facility] Sertraline HCl (Zoloft) 100 mg PO DAILY [facility] Sodium Chloride () 10 - 40 ml IV UD PRN PRN Reason: SALINE FLUSH Medical Necessity - Tobacco Use Smoking Status: Former smoker Tobacco Use: Cigarettes Assessment/Plan Right knee traumatic wound dehiscence. Plan operative irrigation debridement, polyethylene exchange, wound closure tomorrow. Patient to be n.p.o. at midnight. We will start Ancef. We will plan to obtain deep cultures tomorrow. Patient understands if deep infection were to occur further surgery would be warranted. Plan on oral doxycycline postoperatively until culture results finalized. Case discussed with Dr. Dee agreed with the treatment plan. Risk of surgery including but not limited to from operative or postoperative complications. Risk of anesthetic complications such as heart attacks, strokes, seizures, or . Risk of infections. Risk of damage to nerves arteries tendons. Risk of inadvertent fractures or dislocations. Risk of bone or wound healing complications. Possibility of nonunion malunion pain stiffness weakness. Possible need for further surgery such as hardware removal. Risk of DVT PE and other potential complications could lead to or disability explained. No guarantees were stated or implied. All of their questions were answered. Appropriate informed consent was obtained and signed for surgical intervention. Continue medical management. Patient most likely may need transfer to extended care facility postoperatively
[2020-07-13 21:25] VITALS: BP 137/50; PULSE 86; RESP 18; TEMP 37.2; O2SAT 95
[2020-07-13] MEDS: clonazePAM 0.5 MG Tablet PO (21:31)
[2020-07-13] MEDS: MELATONIN 3 MG TABLET PO (21:31)
[2020-07-13] MEDS: Simvastatin 20 MG Tablet PO (21:31)
[2020-07-13] MEDS: Carvedilol 3.125 MG TABLET PO (21:31)
[2020-07-13] MEDS: Pantoprazole Sodium 20 MG Tablet PO (21:31)
[2020-07-13] MEDS: 0.9% Saline Lock 10 ML Syringe IV (21:31)
[2020-07-13] MEDS: Cefazolin 1 GM/50 ML BAG IV (21:32)
[2020-07-14] VITALS (15 sets, daily range): BP systolic 105–168; BP diastolic 43–98; PULSE 62–80; RESP 16–20; TEMP 36.4–37.6; O2SAT 92–100; BMI 23.3; BMI 23.4
[2020-07-14] MEDS: Cefazolin 1 GM/50 ML BAG IV ×2 (05:02→15:16)
[2020-07-14] MEDS: 0.9% Saline Lock 10 ML Syringe IV (05:02)
--- NOTE | 2020-07-14 05:55 | EKG12_ITS ---
Test Reason : AM EKG Blood Pressure : / mmHG Vent. Rate : 076 BPM Atrial Rate : 076 BPM P-R Int : 132 ms QRS Dur : 078 ms QT Int : 378 ms P-R-T Axes : 061 039 043 degrees QTc Int : 425 ms Normal sinus rhythm with sinus arrhythmia Nonspecific ST abnormality Abnormal ECG When compared with ECG of 22-JUN-2020 15:40, Criteria for Septal infarct are no longer Present Confirmed by CHRIS NEWMAN, KT ([id number]), editorial writer WARREN CORREA ([id number]) on 07/18/2020 1:22:34 PM Referred By: KARMEN Confirmed By:CRISTAL PEREZ MD
[2020-07-14 05:58] LABS: Absolute Lymphocyte Count 1.21 X10^3/uL (0.83-4.51); Absolute Neutrophil Count 8.8 X10^3/uL (2.0-7.7); Basophil# 0.04 X10^3/uL; Basophil% 0.4 % (0-1); Eosinophil# 0.18 X10^3/uL; Eosinophils% 1.6 % (0-5); Hematocrit 23.2 % (37-47); Hemoglobin 8.1 g/dL (12.0-15.0); Lymphocyte # 1.21 X10^3/ul (4.0); Lymphocyte % 10.7 % (19-41); Mean Corp Hgb Conc 34.9 g/dL (32-36); Mean Corpuscular Hgb 30.6 pg (27.0-32.0); Mean Corpuscular Volume 87.5 fL (81-99); Mean Platelet Vol. 10.5 fl (6.2-12.0); Monocyte# 0.95 X10^3/uL; Monocyte% 8.4 % (0-10); NRBC Flagged by Analyzer 0 % (0-5); Neutrophil # 8.83 X10^3/uL (2.7-7.7); Neutrophil % 78.4 % (47-70); Platelet Count 176 K/mm3 (150-450); RBC Distribution Width CV 11.6 % (11.6-14.6); RBC Distribution Width SD 37.1 fl (35.1-43.9); Red Blood Count 2.65 M/mm3 (4.2-5.4); White Blood Count 11.3 K/mm3 (4.4-11.0)
[2020-07-14 06:04] LABS: International Normalized Ratio 1.1; Partial Thromboplast Time 34.8 Seconds (24.1-36.2); Prothrombin Time (Protime)PT. 13.9 SECONDS (11.7-14.9)
[2020-07-14 06:24] LABS: AST(SGOT) 88 U/L (15-37); Alanine Aminotransfer ALT/SGPT 30 U/L (13-56); Albumin, Serum 2.7 g/dL (3.2-5.0); Alkaline Phosphatase 101 U/L (45-117); Anion Gap 6 (5-15); BUN 14 mg/dL (7-18); BUN/Creat Ratio 15.4 RATIO (10-20); Bilirubin, Direct 0.29 mg/dL (0.00-0.30); Calcium,Total 8.9 mg/dL (8.5-10.1); Chloride 95 mmol/L (98-107); Creatinine, Serum 0.91 mg/dL (0.55-1.02); EST Glomerular Filtration Rate 64 mL/min (>60); Est Glom Filt Rate - Afr Amer 77 mL/min (>60); Estimated Creatinine Clearance 52.23 ml/min; Globulin 3.1 g/dL (2.2-4.2); Glucose 103 mg/dL (74-106); Potassium 3.9 mmol/L (3.5-5.1); Protein, Total 5.8 g/dL (6.4-8.2); Sodium Level 129 mmol/L (136-145)
--- NOTE | 2020-07-14 07:00 | NURSING ---
Left voicemail for Tamir GARCIA/ex to call to obtain consent
[2020-07-14] MEDS: Carvedilol 3.125 MG TABLET PO (09:47)
[2020-07-14] MEDS: Pantoprazole Sodium 20 MG Tablet PO (09:47)
[2020-07-14] MEDS: amLODIPine 5 MG Tablet PO (09:47)
[2020-07-14] MEDS: Lisinopril 20 MG Tablet PO (09:48)
--- NOTE | 2020-07-14 11:56 | PCM.PN.HOSP ---
<Ozzie Campbell PA - Last Filed: 07/14/20 11:56> Reason for Visit: right LE pain Subjective: ongoing pain. + fever 100.6. Denies chills. No numbness/tingling in the affected extremity. No SOB/cough. No nausea/vomiting. Vitals/I&O's: Vital Signs Temp Pulse Resp BP Pulse Ox 98.4 F 75 18 118/52 L 94 07/14/20 11:11 07/14/20 11:11 07/14/20 11:11 07/14/20 11:11 07/14/20 11:11 Oxygen Delivery Method Room Air Weight: 153 lb 14.122 oz Body Mass Index (BMI) 23.3 Intake and Output for Last 24 Hours 07/12/20 07/13/20 07/14/20 23:59 23:59 23:59 Intake Total 650 / 650 50 / 50 Output Total 300 / 300 Balance 350 / 350 50 / 50 General: Alert, Oriented x3, Cooperative HEENT: Atraumatic, PERRLA, EOMI, Normocephalic Neck: Supple, No JVD, Negative Carotid Bruits Lungs: Clear to auscultation, Normal air movement Cardiovascular: Regular rate, No murmurs Abdomen: Bowel Sounds Present, Soft, Non Tender Extremities: No edema, Capillary Refill Less than 3 Seconds Skin: No rashes, No breakdown Musculoskeletal: No Tenderness to Palpation of Joints or Extremities Neurological: Cranial nerves II-XII grossly intact Psych/Mental Status: Normal Affect, Appropriate, Alert and oriented to time, place, person, mood and affect Laboratory Results 07/14/20 05:48: WBC 11.3 H, RBC 2.65 L, Hgb 8.1 L, Hct 23.2 L, MCV 87.5, MCH 30.6, MCHC 34.9, RDW Std Deviation 37.1, RDW Coeff of Hiwot 11.6, Plt Count 176, MPV 10.5, Immature Gran % (Auto) 0.500, Neut % (Auto) 78.4 H, Lymph % (Auto) 10.7 L, Caroline % (Auto) 8.4, Eos % (Auto) 1.6, Baso % (Auto) 0.4, Absolute Neuts (auto) 8.8 H, Absolute Lymphs (auto) 1.21, Nucleated RBC % 0 07/14/20 05:48: Sodium 129 L, Potassium 3.9, Chloride 95 L, Carbon Dioxide 28.0, Anion Gap 6, BUN 14, Creatinine 0.91, Estim Creat Clear Calc 52.23, Est GFR (MDRD) Af Amer 77, Est GFR (MDRD) Non-Af 64, BUN/Creatinine Ratio 15.4, Glucose 103, Calcium 8.9, Total Bilirubin 0.70, Direct Bilirubin 0.29, AST 88 H, ALT 30, Alkaline Phosphatase 101, Total Protein 5.8 L, Albumin 2.7 L, Globulin 3.1 07/14/20 05:48: PT 13.9, INR 1.1, APTT 34.8 07/14/20 08:16: Blood Type O POSITIVE, Antibody Screen NEGATIVE, Crossmatch See Detail Current Medications Acetaminophen (Tylenol) 650 mg PO Q6H PRN PRN PRN Reason: Pain Score 1-10/Temp > 100.7 F Amlodipine Besylate (Norvasc) 5 mg PO DAILY [facility] Last Admin: 07/14/20 09:47 Dose: 5 mg Documented by: Bupropion HCl (Wellbutrin Xl) 300 mg PO DAILY [facility] Carvedilol (Coreg) 3.125 mg PO BID [facility] Last Admin: 07/14/20 09:47 Dose: 3.125 mg Documented by: Clonazepam (Klonopin) 0.5 mg PO TID PRN PRN PRN Reason: ANXIETY Last Admin: 07/13/20 21:31 Dose: 0.5 mg Documented by: Sodium Chloride 68.4 ml/Ropivacaine 20 ml/ Epinephrine HCl 0.6 mg/ Morphine Sulfate 5 mg/ Ketorolac Tromethamine 30 mg 0 ml OPERA.SITE X1 ONE Stop: 07/14/20 14:01 Hydrochlorothiazide () 12.5 mg PO DAILY [facility] Last Admin: 07/14/20 09:45 Dose: Not Given Documented by: Cefazolin Sodium () 1 gm in 50 mls @ 100 mls/hr IV Q8 [facility] Last Infusion: 07/14/20 05:32 Dose: Infused Documented by: Lisinopril (Zestril) 20 mg PO DAILY [facility] Last Admin: 07/14/20 09:48 Dose: 20 mg Documented by: Melatonin (Melatonin) 3 mg PO QHS PRN PRN PRN Reason: INSOMNIA Last Admin: 07/13/20 21:31 Dose: 3 mg Documented by: Ondansetron HCl (Zofran) 4 mg IV Q8H PRN PRN PRN Reason: NAUSEA/VOMITING Pantoprazole Sodium (Protonix) 20 mg PO BID [facility] Last Admin: 07/14/20 09:47 Dose: 20 mg Documented by: Rivaroxaban (Xarelto) 10 mg PO DAILY@0600 [facility] Sertraline HCl (Zoloft) 100 mg PO DAILY [facility] Simvastatin (Zocor) 20 mg PO QHS [facility] Last Admin: 07/13/20 21:31 Dose: 20 mg Documented by: Sodium Chloride () 10 - 40 ml IV UD PRN PRN Reason: SALINE FLUSH Last Admin: 07/14/20 05:02 Dose: 10 ml Documented by: STROKE Vital Signs/Narrative: Vital Signs Temp Pulse Resp BP Pulse Ox 07/14/20 11:11 98.4 F 75 18 118/52 L 94 07/14/20 10:56 99.6 F H 71 18 110/54 L 94 07/14/20 09:36 98.6 F 75 18 136/43 H 100 Medical Necessity - Tobacco Use Smoking Status: Former smoker Tobacco Use: Cigarettes Assessment/Plan 1. Recent right total knee, with possible septic knee (fevers, leukocytosis, effusion, post op), wound dehiscance and falls since discharge - to OR today with Dr. Dee - leukocytosis pressent and fever this AM 100.6. surgical cultures to be taken. periop cefazolin ordered and per ortho doxy post surgery. 2. Acute on chronic anemia 2/2 blood loss 2/2 #1 - repeat CBC in AM. platelets normal. 3. Hyponatremia - unclear etiology. on zoloft and hctz (stop) 4. Hypokalemia - normalized. 5. HTN - stopped hctz as above, continue norvasc, zestril. 6. HLD -statin 7. Hx MVP 8. Hx Ulcerative colitis 9. Anx/depression - zoloft, wellbutrin, klonopin DVT ppx: xarelto held for OR. DC planning: SNF. This patient was seen by Ozzie Campbell PA-C under the supervision of Doctor Parker. <Grzegorz Canales F - Last Filed: 07/14/20 13:43> Vitals/I&O's: Vital Signs Temp Pulse Resp BP Pulse Ox 98.9 F 78 16 117/66 95 07/14/20 12:11 07/14/20 12:11 07/14/20 12:11 07/14/20 12:11 07/14/20 12:11 Oxygen Delivery Method Room Air Weight: 153 lb 14.122 oz Body Mass Index (BMI) 23.3 Intake and Output for Last 24 Hours 07/12/20 07/13/20 07/14/20 23:59 23:59 23:59 Intake Total 650 / 650 50 / 50 Output Total 300 / 300 Balance 350 / 350 50 / 50 Laboratory Results 07/14/20 05:48: WBC 11.3 H, RBC 2.65 L, Hgb 8.1 L, Hct 23.2 L, MCV 87.5, MCH 30.6, MCHC 34.9, RDW Std Deviation 37.1, RDW Coeff of Hiwot 11.6, Plt Count 176, MPV 10.5, Immature Gran % (Auto) 0.500, Neut % (Auto) 78.4 H, Lymph % (Auto) 10.7 L, Caroline % (Auto) 8.4, Eos % (Auto) 1.6, Baso % (Auto) 0.4, Absolute Neuts (auto) 8.8 H, Absolute Lymphs (auto) 1.21, Nucleated RBC % 0 07/14/20 05:48: Sodium 129 L, Potassium 3.9, Chloride 95 L, Carbon Dioxide 28.0, Anion Gap 6, BUN 14, Creatinine 0.91, Estim Creat Clear Calc 52.23, Est GFR (MDRD) Af Amer 77, Est GFR (MDRD) Non-Af 64, BUN/Creatinine Ratio 15.4, Glucose 103, Calcium 8.9, Total Bilirubin 0.70, Direct Bilirubin 0.29, AST 88 H, ALT 30, Alkaline Phosphatase 101, Total Protein 5.8 L, Albumin 2.7 L, Globulin 3.1 07/14/20 05:48: PT 13.9, INR 1.1, APTT 34.8 07/14/20 08:16: Blood Type O POSITIVE, Antibody Screen NEGATIVE, Crossmatch See Detail Current Medications Acetaminophen (Tylenol) 650 mg PO Q6H PRN PRN PRN Reason: Pain Score 1-10/Temp > 100.7 F Amlodipine Besylate (Norvasc) 5 mg PO DAILY [facility] Last Admin: 07/14/20 09:47 Dose: 5 mg Documented by: Bupropion HCl (Wellbutrin Xl) 300 mg PO DAILY [facility] Carvedilol (Coreg) 3.125 mg PO BID [facility] Last Admin: 07/14/20 09:47 Dose: 3.125 mg Documented by: Clonazepam (Klonopin) 0.5 mg PO TID PRN PRN PRN Reason: ANXIETY Last Admin: 07/13/20 21:31 Dose: 0.5 mg Documented by: Sodium Chloride 68.4 ml/Ropivacaine 20 ml/ Epinephrine HCl 0.6 mg/ Morphine Sulfate 5 mg/ Ketorolac Tromethamine 30 mg 0 ml OPERA.SITE X1 ONE Stop: 07/14/20 14:01 Cefazolin Sodium () 1 gm in 50 mls @ 100 mls/hr IV Q8 [facility] Last Infusion: 07/14/20 05:32 Dose: Infused Documented by: Lisinopril (Zestril) 20 mg PO DAILY [facility] Last Admin: 07/14/20 09:48 Dose: 20 mg Documented by: Melatonin (Melatonin) 3 mg PO QHS PRN PRN PRN Reason: INSOMNIA Last Admin: 07/13/20 21:31 Dose: 3 mg Documented by: Ondansetron HCl (Zofran) 4 mg IV Q8H PRN PRN PRN Reason: NAUSEA/VOMITING Pantoprazole Sodium (Protonix) 20 mg PO BID [facility] Last Admin: 07/14/20 09:47 Dose: 20 mg Documented by: Rivaroxaban (Xarelto) 10 mg PO DAILY@0600 [facility] Sertraline HCl (Zoloft) 100 mg PO DAILY [facility] Simvastatin (Zocor) 20 mg PO QHS [facility] Last Admin: 07/13/20 21:31 Dose: 20 mg Documented by: Sodium Chloride () 10 - 40 ml IV UD PRN PRN Reason: SALINE FLUSH Last Admin: 07/14/20 05:02 Dose: 10 ml Documented by: STROKE Vital Signs/Narrative: Vital Signs Temp Pulse Resp BP Pulse Ox 07/14/20 12:11 98.9 F 78 16 117/66 95 07/14/20 11:11 98.4 F 75 18 118/52 L 94 07/14/20 10:56 99.6 F H 71 18 110/54 L 94 07/14/20 09:36 98.6 F 75 18 136/43 H 100 Addendum: Dr. Canales I personally examined the patient and reviewed the chart. I agree with the above. 79-year-old female presents after being discharged after a right total knee replacement. She states that she went home and that she had 4 5 fall secondary to her left knee giving out. Her son also states that she seemed to be having hallucinations and she did seem to be a little bit slower today this could be secondary to narcotic use therefore this will be limited. We will resume her home meds except for her oxycodone, and her Benadryl. We will have her evaluated by PT/OT for possible rehab placement. Appreciate orthopedic surgery and their consultation. 07/14/2020: Doing well today, she is scheduled for surgery for washout and repair of her wound dehiscence. We will continue with antibiotics until cultures are resulted. She is on Ancef and then will be transitioned to oral doxycycline after surgery. We will discuss the case with case management and work on half-way facility placement. OBSV E&M: 16066 Subsequent observation care L2
--- NOTE | 2020-07-14 13:05 | CASEMGMT ---
This RN CM to room with WALKER form at this time. Pt is A/Ox4 at this time. WALKER explanation done-pt voices understanding and signs WALKER form at this time. Pt voices no further questions/concerns/needs at this time. Original to chart and pt declines copy at this time. SStaten RN CM
--- NOTE | 2020-07-14 13:12 | CASEMGMT ---
SW spoke with patient. Introduced self as well as role at [facility]. SW discussed d/c plan with patient. SW gave her a list of facilities that are in network with her insurance. SW explained she will stay until her insurance approves her. She was tearful about having to go to a skilled nursing. SW provided emotional support. SW to follow for d/c planning. Kesha AMOS MSW
--- NOTE | 2020-07-14 14:40 | NURSING ---
Off unit to AC with HYDROPULPER.
[2020-07-14] MEDS: Lactated Ringers 1,000 ML 100 ML IV (15:00)
--- NOTE | 2020-07-14 16:23 | PCM.OP.PRO ---
Procedure Report Date of Procedure: 07/14/20 Pre-operative diagnosis: right total knee replacement, with traumatic wound dehiscence postoperative diagnosis: Same Title of operation: Right knee open irrigation and debridement, 1 component revision Surgeon: Dr. Nito Viveros Human Anatomy Teacher: Ivone Winslow PA-C Anesthesia: General Anesthesiologist: Dr Alcala Medications: , Ancef IV. Complications: None EBL <50 Indications for surgery: Patient reportedly was struck on her knee by a car door leaving the hospital on Saturday. She then went home and reportedly had fallen more than once. She was brought back to the hospital because of falling. Her knee was noted to have bleeding and ultimately diagnosed with traumatic wound dehiscence. Findings: Patient had a traumatic wound dehiscence involving her anterior incision. Her arthrotomy noted to be completely intact. Based on her preoperative planning patient underwent thorough irrigation and debridement of the superficial layer, followed by irrigation and debridement of her joint through her previous arthrotomy. Deep wound cultures were obtained X3 assistant community director, was crucial throughout the entire procedure. SHe help with patient positioning, holding the limb holding of retractors. SHe help with the actual surgical procedure of debridement, as well as through irrigation, obtaining cultures, component revision. Help with wound closure bandage application patient transfer. Without surgical physician as field research assistant, surgical time would have been increased, surgical outcome could have been less optimal. His expertise was required throughout. Details of procedure: She was taken to the operating room and transferred to the OR table. Appropriate timeouts were performed. 1 gm of Ancef was given IV. Left lower extremity had GERALDO hose and SCDs on throughout. Cheryl were removed from the remainder of her knee incision site. Cheryl maintained at her groin tibial pin sites. Right lower extremity was prepped padded draped in the usual orthopedic sterile fashion for the procedure. Midline incision carried out at the knee. Careful dissection through skin subcutaneous tissue was carried out. Suture material removed. Careful full-thickness skin flaps raised medially and laterally about the patella. This area was noted to have 1 retained staple that was removed. We thoroughly irrigated this layer above her arthrotomy with 3 L of saline. No pus was noted. Came through the previous medial parapatellar arthrotomy with a knife. No purulent material noted. Further suture material removed. We carefully dissected the soft tissues from underneath the medial and lateral gutter proximally and distally with pickups, rondure, Bovie. Debridement carried out superficial to deep, proximal to distal as well. Obtained cultures from the medial gutter, suprapatellar pouch region, as well as fibrinous material from on the implant. We did remove the polyethylene component of the knee. PCL was preserved. We used 6 L of sterile saline as irrigant. Use sterile Betadine solution throughout the knee and then irrigated that out. Used Aricept solution throughout the knee as well. Knee had been found to be ligamentously stable prior to removing implant.. New identical sized 4, 9mm CS polyethylene impacted fully. He had good range of motion and patellar tracking. Bleeding controlled with the Bovie. Knee closed in layers with a #1 Vicryl in a [id number] fashion as well as running fashion. #2 strata fix at her arthrotomy as well. #1 Vicryl was then used at the deep layer. Then inverted 2-0 Vicryl, by 2-0 nylon in a simple and horizontal mattress fashion to repair the skin. Mepilex dressing applied. Amadou Wrap applied. Patient was awoken from her anesthetic. Transferred back to her own bed in recovery room in satisfactory condition. Xarelto will be ordered. Continue on hospitalist service. Tentative plan 1 weeks of oral antibiotic most likely. While awaiting wound cultures, 1 g of IV Ancef given preoperatively for antibiotic prophylaxis. Xarelto 10 mg daily will be used for DVT prevention This note was generated with [employer] dictation software. It may contain incorrect words, spelling, and punctuation that were not noted in checking the note before signing.
[2020-07-14] MEDS: Haloperidol Lactate 5 MG/ML Vial 2 MG IV (18:56)
--- NOTE | 2020-07-14 19:09 | NURSING ---
Patient to floor from PACU and was extremely fidgety and restless. She is pulling at her IV, taking clothes off, taking 02 off. She is insistent that she get oob. She is stating that we hurt her knee and we are hurting her back. TIM Mann and this RN are in room and attempting to reorient patient and remind her that she had knee surgery and that she is at [facility]. She is calling out for family members. Dr. Childers was paged and gave an order for Haldol IV 2mg x1. This was given and a sitter remains with patient. Will continue to monitor.
[2020-07-15] VITALS (9 sets, daily range): BP systolic 103–137; BP diastolic 31–59; PULSE 69–84; RESP 14–16; TEMP 36.7–37.1; O2SAT 94–100; BMI 23.4
[2020-07-15] MEDS: Acetaminophen 325 MG Tablet 650 MG PO ×2 (05:44→15:05)
[2020-07-15] MEDS: Rivaroxaban 10 MG Tablet PO (05:44)
[2020-07-15 09:08] LABS: Absolute Lymphocyte Count 0.94 X10^3/uL (0.83-4.51); Absolute Neutrophil Count 8.2 X10^3/uL (2.0-7.7); Basophil# 0.04 X10^3/uL; Basophil% 0.4 % (0-1); Eosinophil# 0.34 X10^3/uL; Eosinophils% 3.3 % (0-5); Hematocrit 24.4 % (37-47); Hemoglobin 8.4 g/dL (12.0-15.0); Lymphocyte # 0.94 X10^3/ul (4.0); Mean Corp Hgb Conc 34.4 g/dL (32-36); Mean Corpuscular Hgb 30.4 pg (27.0-32.0); Mean Corpuscular Volume 88.4 fL (81-99); Mean Platelet Vol. 10.6 fl (6.2-12.0); Monocyte# 0.88 X10^3/uL; Monocyte% 8.4 % (0-10); NRBC Flagged by Analyzer 0 % (0-5); Neutrophil # 8.18 X10^3/uL (2.7-7.7); Neutrophil % 78.5 % (47-70); Platelet Count 199 K/mm3 (150-450); RBC Distribution Width CV 12.1 % (11.6-14.6); RBC Distribution Width SD 39.6 fl (35.1-43.9); Red Blood Count 2.76 M/mm3 (4.2-5.4); White Blood Count 10.4 K/mm3 (4.4-11.0)
[2020-07-15 09:36] LABS: Anion Gap 8 (5-15); BUN 18 mg/dL (7-18); BUN/Creat Ratio 22.9 RATIO (10-20); Calcium,Total 8.7 mg/dL (8.5-10.1); Chloride 98 mmol/L (98-107); Creatinine, Serum 0.79 mg/dL (0.55-1.02); EST Glomerular Filtration Rate 75 mL/min (>60); Est Glom Filt Rate - Afr Amer 91 mL/min (>60); Estimated Creatinine Clearance 47.53 ml/min; Glucose 119 mg/dL (74-106); Potassium 3.7 mmol/L (3.5-5.1); Sodium Level 133 mmol/L (136-145)
[2020-07-15] MEDS: Pantoprazole Sodium 20 MG Tablet PO (09:36)
[2020-07-15] MEDS: Sertraline 100 MG Tablet PO (09:36)
[2020-07-15] MEDS: buPROPion (XL) 300 MG TABLET.XL PO (09:36)
--- NOTE | 2020-07-15 12:04 | PCM.PN.HOSP ---
Reason for Visit: R knee pain Subjective: pt has had some knee pain this am however it is much better than yesterday. She had some post op confusion last night however this appears to be completely resolved at this point. No fever/chills. no cough/sob. no nausea / vomiting. Vitals/I&O's: Vital Signs Temp Pulse Resp BP Pulse Ox 98.3 F 70 14 113/41 L 100 07/15/20 09:15 07/15/20 09:15 07/15/20 09:15 07/15/20 09:34 07/15/20 09:15 Oxygen Flow Rate (L/min) 2 Oxygen Delivery Method Room Air Weight: 153 lb 14.122 oz Body Mass Index (BMI) 23.3 Intake and Output for Last 24 Hours 07/13/20 07/14/20 07/15/20 23:59 23:59 23:59 Intake Total 650 / 650 1550 / 1550 Output Total 300 / 300 300 / 300 300 / 300 Balance 350 / 350 1250 / 1250 -300 / -300 General: Alert, Oriented x3, Cooperative HEENT: Atraumatic, PERRLA, EOMI, Normocephalic Neck: Supple, No JVD, Negative Carotid Bruits Lungs: Clear to auscultation, Normal air movement Cardiovascular: Regular rate, No murmurs Abdomen: Bowel Sounds Present, Soft, Non Tender Extremities: No edema, Capillary Refill Less than 3 Seconds Skin: No rashes, No breakdown Musculoskeletal: No Tenderness to Palpation of Joints or Extremities, - - right knee with some swelling, no erythema or significant warmth. Neurological: Cranial nerves II-XII grossly intact Psych/Mental Status: Normal Affect, Appropriate, Alert and oriented to time, place, person, mood and affect Laboratory Results 07/14/20 08:16: Crossmatch See Detail 07/14/20 14:30: COVID-19 ([facility]AM) Negative 07/15/20 08:52: WBC 10.4, RBC 2.76 L, Hgb 8.4 L, Hct 24.4 L, MCV 88.4, MCH 30.4, MCHC 34.4, RDW Std Deviation 39.6, RDW Coeff of Hiwot 12.1, Plt Count 199, MPV 10.6, Immature Gran % (Auto) 0.400, Neut % (Auto) 78.5 H, Lymph % (Auto) 9.0 L, [place] % (Auto) 8.4, Eos % (Auto) 3.3, Baso % (Auto) 0.4, Absolute Neuts (auto) 8.2 H, Absolute Lymphs (auto) 0.94, Nucleated RBC % 0 07/15/20 08:52: Sodium 133 L, Potassium 3.7, Chloride 98, Carbon Dioxide 27.0, Anion Gap 8, BUN 18, Creatinine 0.79, Estim Creat Clear Calc 47.53, Est GFR (MDRD) Af Amer 91, Est GFR (MDRD) Non-Af 75, BUN/Creatinine Ratio 22.9 H, Glucose 119 H, Calcium 8.7 Current Medications Acetaminophen (Tylenol) 650 mg PO Q6H PRN PRN PRN Reason: Pain Score 1-10/Temp > 100.7 F Last Admin: 07/15/20 05:44 Dose: 650 mg Documented by: Amlodipine Besylate (Norvasc) 5 mg PO DAILY [facility] Last Admin: 07/14/20 09:47 Dose: 5 mg Documented by: Bupropion HCl (Wellbutrin Xl) 300 mg PO DAILY [facility] Last Admin: 07/15/20 09:36 Dose: 300 mg Documented by: Carvedilol (Coreg) 3.125 mg PO BID [facility] Last Admin: 07/14/20 21:46 Dose: Not Given Documented by: Clonazepam (Klonopin) 0.5 mg PO TID PRN PRN PRN Reason: ANXIETY Last Admin: 07/13/20 21:31 Dose: 0.5 mg Documented by: Cefazolin Sodium () 1 gm in 50 mls @ 100 mls/hr IV Q8 [facility] Last Admin: 07/15/20 05:28 Dose: Not Given Documented by: Lisinopril (Zestril) 20 mg PO DAILY [facility] Last Admin: 07/14/20 09:48 Dose: 20 mg Documented by: Melatonin (Melatonin) 3 mg PO QHS PRN PRN PRN Reason: INSOMNIA Last Admin: 07/13/20 21:31 Dose: 3 mg Documented by: Ondansetron HCl (Zofran) 4 mg IV Q8H PRN PRN PRN Reason: NAUSEA/VOMITING Pantoprazole Sodium (Protonix) 20 mg PO BID [facility] Last Admin: 07/15/20 09:36 Dose: 20 mg Documented by: Rivaroxaban (Xarelto) 10 mg PO DAILY@0600 [facility] Last Admin: 07/15/20 05:44 Dose: 10 mg Documented by: Sertraline HCl (Zoloft) 100 mg PO DAILY [facility] Last Admin: 07/15/20 09:36 Dose: 100 mg Documented by: Simvastatin (Zocor) 20 mg PO QHS [facility] Last Admin: 07/14/20 21:46 Dose: Not Given Documented by: Sodium Chloride () 10 - 40 ml IV UD PRN PRN Reason: SALINE FLUSH Last Admin: 07/14/20 05:02 Dose: 10 ml Documented by: STROKE Vital Signs/Narrative: Vital Signs Temp Pulse Resp BP BP Pulse Ox 07/15/20 09:34 113/41 L 07/15/20 09:15 98.3 F 70 14 113/31 L 100 Medical Necessity - Tobacco Use Smoking Status: Former smoker Tobacco Use: Cigarettes Assessment/Plan 1. Recent right total knee, with possible septic knee (fevers, leukocytosis, effusion, post op), wound dehiscance and falls since discharge - went to OR yesterday for repair. Cultures taken - pending. leukocytosis improved. fever resolved. On IV cefazolin. Knee does not appear infectious at this time. 2. Acute on chronic anemia 2/2 blood loss 2/2 #1 - improved. received 1 unit PRBC yesterday. Repeat CBC in AM. 3. Hyponatremia - unclear etiology - gradual improvement. on zoloft and hctz (stopped) 4. Hypokalemia - normalized. 5. HTN - stopped hctz as above, continue norvasc, zestril. 6. HLD -statin 7. Hx MVP 8. Hx Ulcerative colitis 9. Anx/depression - zoloft, wellbutrin, klonopin DVT ppx: xarelto held for OR. DC planning: SNF This patient was seen by Ozzie Campbell PA-C under the supervision of Doctor Canales.
--- NOTE | 2020-07-15 12:34 | PN.ORTHO_ITS ---
Subjective: Patient states her right knee is feeling much better. Pain currently 2 out of 10. Denies fever or chills. Patient is considering rehab facility rather than discharge to home. She had fallen at home several times. Seen with therapist present Objective: Right knee bandages on clean and dry. She does have a spot, dime sized dried blood at the inferior Mepilex dressing not extending to any border. Pin sites dressings have minimal dried blood on them. Knee motion is 0-40 degrees. No calf pain or swelling bilaterally. Negative Homans sign bilaterally. No significant knee effusion noted. No warmth or redness. No hip pain with motion. Legs are neurovascular intact. Laboratory work and vital signs reviewed. Note from hospitalist reviewed Microbiology reports pending regarding Gram stain and tissue cultures - Physical Exam Vitals/I&O's: Vital Signs Temp Pulse Resp BP Pulse Ox 98.3 F 69 14 103/45 L 100 07/15/20 09:15 07/15/20 12:17 07/15/20 09:15 07/15/20 12:17 07/15/20 09:15 Oxygen Flow Rate (L/min) 2 Oxygen Delivery Method Room Air Weight: 69.8 kg Body Mass Index (BMI) 23.3 Intake and Output for Last 24 Hours 07/13/20 07/14/20 07/15/20 23:59 23:59 23:59 Intake Total 650 / 650 1550 / 1550 240 / 240 Output Total 300 / 300 300 / 300 300 / 300 Balance 350 / 350 1250 / 1250 -60 / -60 Laboratory Results 07/14/20 08:16: Crossmatch See Detail 07/14/20 14:30: COVID-19 ([facility]AM) Negative 07/15/20 08:52: WBC 10.4, RBC 2.76 L, Hgb 8.4 L, Hct 24.4 L, MCV 88.4, MCH 30.4, MCHC 34.4, RDW Std Deviation 39.6, RDW Coeff of Hiwot 12.1, Plt Count 199, MPV 10.6, Immature Gran % (Auto) 0.400, Neut % (Auto) 78.5 H, Lymph % (Auto) 9.0 L, Pepin % (Auto) 8.4, Eos % (Auto) 3.3, Baso % (Auto) 0.4, Absolute Neuts (auto) 8.2 H, Absolute Lymphs (auto) 0.94, Nucleated RBC % 0 07/15/20 08:52: Sodium 133 L, Potassium 3.7, Chloride 98, Carbon Dioxide 27.0, Anion Gap 8, BUN 18, Creatinine 0.79, Estim Creat Clear Calc 47.53, Est GFR (MDRD) Af Amer 91, Est GFR (MDRD) Non-Af 75, BUN/Creatinine Ratio 22.9 H, Glucose 119 H, Calcium 8.7 Current Medications Acetaminophen (Tylenol) 650 mg PO Q6H PRN PRN PRN Reason: Pain Score 1-10/Temp > 100.7 F Last Admin: 07/15/20 05:44 Dose: 650 mg Documented by: Amlodipine Besylate (Norvasc) 5 mg PO DAILY [facility] Last Admin: 07/15/20 12:18 Dose: Not Given Documented by: Bupropion HCl (Wellbutrin Xl) 300 mg PO DAILY [facility] Last Admin: 07/15/20 09:36 Dose: 300 mg Documented by: Carvedilol (Coreg) 3.125 mg PO BID [facility] Last Admin: 07/15/20 12:18 Dose: Not Given Documented by: Clonazepam (Klonopin) 0.5 mg PO TID PRN PRN PRN Reason: ANXIETY Last Admin: 07/13/20 21:31 Dose: 0.5 mg Documented by: Cefazolin Sodium () 1 gm in 50 mls @ 100 mls/hr IV Q8 [facility] Last Admin: 07/15/20 05:28 Dose: Not Given Documented by: Lisinopril (Zestril) 20 mg PO DAILY [facility] Last Admin: 07/15/20 12:18 Dose: Not Given Documented by: Melatonin (Melatonin) 3 mg PO QHS PRN PRN PRN Reason: INSOMNIA Last Admin: 07/13/20 21:31 Dose: 3 mg Documented by: Ondansetron HCl (Zofran) 4 mg IV Q8H PRN PRN PRN Reason: NAUSEA/VOMITING Pantoprazole Sodium (Protonix) 20 mg PO BID [facility] Last Admin: 07/15/20 09:36 Dose: 20 mg Documented by: Rivaroxaban (Xarelto) 10 mg PO DAILY@0600 [facility] Last Admin: 07/15/20 05:44 Dose: 10 mg Documented by: Sertraline HCl (Zoloft) 100 mg PO DAILY [facility] Last Admin: 07/15/20 09:36 Dose: 100 mg Documented by: Simvastatin (Zocor) 20 mg PO QHS [facility] Last Admin: 07/14/20 21:46 Dose: Not Given Documented by: Sodium Chloride () 10 - 40 ml IV UD PRN PRN Reason: SALINE FLUSH Last Admin: 07/14/20 05:02 Dose: 10 ml Documented by: Medical Necessity - Tobacco Use Smoking Status: Former smoker Tobacco Use: Cigarettes Assessment/Plan Her diagnosis and treatment options regarding her right knee irrigation debridement, polyethylene exchange for traumatic knee wound, dehiscence discussed with her at length. She can be weightbearing as tolerated. Gentle knee range of motion. We are not going to stress flexion at this point. We will plan to continue Ancef pending Gram stain and culture results. Most likely she will be discharged on doxycycline orally for 7 to 10 days until cultures are finalized. Okay to discharge to [facility] when arrangements made. We would need to see her back in the office in 12 to 14 days of the time of her surgery July 14 for wound check and suture removal. All of her questions answered. Continue on hospitalist service for medical management
[2020-07-15] MEDS: Cefazolin 1 GM/50 ML BAG IV (14:25)
--- NOTE | 2020-07-15 16:20 | PCM.EXTCARCO ---
- Diet 07/14/20 15:20 Diet: Regular - General Is pt able to select menu?: Yes - Routine Orders/Code Status Suppository Type: Dulcolax 10mg Suppository Frequency: Daily PRN Routine Lab Work: CBC - 5 days, BMP - 5 days Code Status: Full Code - Wound(s) Right knee Wound Type: Surgical Incision - Therapies Weight Bearing: Weight bearing as tolerated Extremity Affected:: Right Lower Physical Therapy: Eval and Treat Occupational Therapy: Eval and Treat - Allergies/Procedures Done in Hospital Allergies/Adverse Reactions: Allergies atorvastatin calcium [From Lipitor] Allergy (Verified 07/13/20 08:21) Unknown Beta-Blockers (Beta-Adrenergic Bloc Allergy (Verified 07/13/20 08:21) Unknown cefaclor [From Ceclor] Allergy (Verified 07/13/20 08:21) Unknown Sulfa (Sulfonamide Antibiotics) Allergy (Verified 07/13/20 08:21) Hives Tetracyclines Allergy (Verified 07/13/20 08:21) Unknown propoxyphene [From Darvon] Adverse Reaction (Verified 07/13/20 08:21) Nausea Procedures: None - Type of Care/Length of Stay Estimated LOS: Convalescent Care Less Than 30 days Type of Care Needed: Skilled Rehab Potential: Fair Prognosis: Fair - Additional Orders/Day of Discharge Additional Orders: Per ortho She can be weightbearing as tolerated. Gentle knee range of motion. We are not going to stress flexion at this point. Day of Discharge: 07/15/20 - Follow Up Care Primary Care Physician: Otis Mcnair III, MD [Primary Care Provider] - Please follow up with your Primary Care Physician in: 2 weeks Please Follow Up With: Nito Viveros MD When: 12-14 days
--- NOTE | 2020-07-15 16:27 | DS.PCM_ITS ---
<Ozzie Campbell - Last Filed: 07/15/20 16:34> Discharge Date and Diagnosis Date of Admission: 07/13/20 Date of Discharge: 07/15/20 - Primary Discharge Diagnosis Acute Problems: traumatic right total knee dehiscence acute on chronic anemia 2/2 blood loss 2/2 above hyponatremia possibly due to thiazide diuretic - Secondary Discharge Diagnosis Chronic Problems: Chronic Problems (Last Reviewed 07/05/20 @ 10:[address] Fco Cardona MD) Nonrheumatic mitral (valve) prolapse (Chronic) Benign essential hypertension (Chronic) Dyslipidemia (Chronic) Hospital Course and Treatment Imaging Results: IMAGING: CT/Brain/Head without Contrast IMPRESSION: Chronic involutional changes of the brain. Mucosal thickening of the right sphenoid and right maxillary sinus. RAD/HIP, UNI W/ Pelvis 2-3 Views IMPRESSION: Mild degree of the degenerative changes of the hip joint. RAD/Knee 1 or 2 Views IMPRESSION: Status post total knee replacement. There is good alignment. Postoperative soft tissue changes. Small joint effusion. Consults: Felice - orthopedics Operations: - - Right knee open irrigation and debridement, 1 component revision Procedures: None Summary of Care Provided: Hospital course: The patient is a 79 year old F with pmhx of recent admission and discharge for right total knee repair with Dr. Viveros. When the patient left the hospital she had multiple falls and struck her surgical sight with a car door that led to wound dehiscance with some blood loss. The patient returned to the ER and was admitted for wound dehiscance. She had a temp of 100.6 and leukocytosis and was placed on IV ancef. The patient was taken to the OR for debridement and repair of the right total knee on 07/14 with minimal complications. Cultures were taken intraoperatively and at this time all cultures gram stain shows no growth. The patient did have an initial decline in hemoglobin thought to be 2/2 bleeding from the dehiscence. She was given 1 unit PRBC perioperatively. Hgb stabilized. She resumed xarelto for DVT ppx as previously directed by ortho. She was transitioned to PO doxy and will complete 10 days. She will follow up with ortho in 12-14 days. She will follow up with PCP In 2 weeks. She was discharged to SNF in stable condition. This patient was seen by Ozzie Campbell PA-C under the supervision of Doctor Parker. [] - Physical Exam Vitals/I&O's: Vital Signs Temp Pulse Resp BP Pulse Ox 98.7 F 74 15 134/44 H 96 07/15/20 15:15 07/15/20 15:15 07/15/20 15:15 07/15/20 15:15 07/15/20 15:15 Oxygen Flow Rate (L/min) 2 Oxygen Delivery Method Room Air Weight: 153 lb 14.122 oz Body Mass Index (BMI) 23.3 Intake and Output for Last 24 Hours 07/13/20 07/14/20 07/15/20 23:59 23:59 23:59 Intake Total 650 / 650 1550 / 1550 290 / 290 Output Total 300 / 300 300 / 300 300 / 300 Balance 350 / 350 1250 / 1250 -10 / -10 General: Alert, Oriented x3, Cooperative HEENT: Atraumatic, PERRLA, EOMI, Normocephalic Neck: Supple, No JVD, Negative Carotid Bruits Lungs: Clear to auscultation, Normal air movement Cardiovascular: Regular rate, No murmurs Abdomen: Bowel Sounds Present, Soft, Non Tender Extremities: No edema, Capillary Refill Less than 3 Seconds Skin: No rashes, No breakdown Musculoskeletal: No Tenderness to Palpation of Joints or Extremities Neurological: Cranial nerves II-XII grossly intact Psych/Mental Status: Normal Affect, Appropriate, Alert and oriented to time, place, person, mood and affect Microbiology Past 72 Hours 07/14/20 16:10 Other - Knee Gram Stain - Final 07/14/20 16:10 Other - Knee Wound Culture - Preliminary No growth-Final to follow 07/14/20 16:08 Tissue - Knee Gram Stain - Final 07/14/20 16:08 Tissue - Knee Wound Culture - Preliminary No growth-Final to follow 07/14/20 16:06 Tissue - Knee Gram Stain - Final 07/14/20 16:06 Tissue - Knee Wound Culture - Preliminary No growth-Final to follow Laboratory Results 07/14/20 14:30: COVID-19 ([facility]AM) Negative 07/15/20 08:52: WBC 10.4, RBC 2.76 L, Hgb 8.4 L, Hct 24.4 L, MCV 88.4, MCH 30.4, MCHC 34.4, RDW Std Deviation 39.6, RDW Coeff of Hiwot 12.1, Plt Count 199, MPV 10.6, Immature Gran % (Auto) 0.400, Neut % (Auto) 78.5 H, Lymph % (Auto) 9.0 L, Ralls % (Auto) 8.4, Eos % (Auto) 3.3, Baso % (Auto) 0.4, Absolute Neuts (auto) 8.2 H, Absolute Lymphs (auto) 0.94, Nucleated RBC % 0 07/15/20 08:52: Sodium 133 L, Potassium 3.7, Chloride 98, Carbon Dioxide 27.0, Anion Gap 8, BUN 18, Creatinine 0.79, Estim Creat Clear Calc 47.53, Est GFR (MDRD) Af Amer 91, Est GFR (MDRD) Non-Af 75, BUN/Creatinine Ratio 22.9 H, Glucose 119 H, Calcium 8.7 Current Medications Acetaminophen (Tylenol) 650 mg PO Q6H PRN PRN PRN Reason: Pain Score 1-10/Temp > 100.7 F Last Admin: 07/15/20 15:05 Dose: 650 mg Documented by: Amlodipine Besylate (Norvasc) 5 mg PO DAILY [facility] Last Admin: 07/15/20 12:18 Dose: Not Given Documented by: Bupropion HCl (Wellbutrin Xl) 300 mg PO DAILY [facility] Last Admin: 07/15/20 09:36 Dose: 300 mg Documented by: Carvedilol (Coreg) 3.125 mg PO BID [facility] Last Admin: 07/15/20 12:18 Dose: Not Given Documented by: Clonazepam (Klonopin) 0.5 mg PO TID PRN PRN PRN Reason: ANXIETY Last Admin: 07/13/20 21:31 Dose: 0.5 mg Documented by: Cefazolin Sodium () 1 gm in 50 mls @ 100 mls/hr IV Q8 [facility] Last Infusion: 07/15/20 14:55 Dose: Infused Documented by: Lisinopril (Zestril) 20 mg PO DAILY [facility] Last Admin: 07/15/20 12:18 Dose: Not Given Documented by: Melatonin (Melatonin) 3 mg PO QHS PRN PRN PRN Reason: INSOMNIA Last Admin: 07/13/20 21:31 Dose: 3 mg Documented by: Ondansetron HCl (Zofran) 4 mg IV Q8H PRN PRN PRN Reason: NAUSEA/VOMITING Pantoprazole Sodium (Protonix) 20 mg PO BID [facility] Last Admin: 07/15/20 09:36 Dose: 20 mg Documented by: Rivaroxaban (Xarelto) 10 mg PO DAILY@0600 [facility] Last Admin: 07/15/20 05:44 Dose: 10 mg Documented by: Sertraline HCl (Zoloft) 100 mg PO DAILY [facility] Last Admin: 07/15/20 09:36 Dose: 100 mg Documented by: Simvastatin (Zocor) 20 mg PO QHS [facility] Last Admin: 07/14/20 21:46 Dose: Not Given Documented by: Sodium Chloride () 10 - 40 ml IV UD PRN PRN Reason: SALINE FLUSH Last Admin: 07/14/20 05:02 Dose: 10 ml Documented by: Discharge Diet: Low fat/ Low Cholesterol, 2000 mg Sodium Diet Discharge Activity: Return to Normal Activity Home Medications: Medications to take at Discharge Omeprazole [Prilosec] 20 mg PO BID 03/20/14 Clonazepam [Klonopin] 0.5 mg PO TID PRN PRN 09/05/14 buPROPion XL [Wellbutrin Xl] 300 mg PO DAILY 08/10/16 simvastatin 20 mg tablet 20 mg PO QHS 02/18/19 Amlodipine Besylate [Norvasc] 5 mg PO DAILY 06/23/20 Carvedilol 3.125 mg PO BID 06/23/20 quinapril 20 mg tablet 20 mg PO DAILY tab 07/05/20 sertraline 100 mg tablet 100 mg PO DAILY tab 07/05/20 Rivaroxaban [Xarelto] 10 mg PO DAILY@0600 #6 tab 07/12/20 Senna/Docusate Sodium [Senokot-S] 2 tab PO BID #30 tab 07/12/20 Acetaminophen [Tylenol Tablet] 650 mg PO Q6H PRN PRN tab 07/15/20 Doxycycline 100 mg PO BID #20 cap 07/15/20 Melatonin 3 mg PO QHS PRN PRN tab 07/15/20 Oxycodone [Oxyir] 5 mg PO Q4H PRN PRN 3 Days #18 tab 07/15/20 Following Prescriptions Were Given to Patient: Doxycycline 100 mg PO BID #20 cap Oxycodone [Oxyir] 5 mg PO Q4H PRN PRN 3 Days #18 tab PRN Reason: Pain Score 6-10/10 Prescription Printed Primary Care Physician: Otis Mcnari III, MD [Primary Care Provider] - Please follow up with your Primary Care Physician in: 2 weeks Please Follow Up With: Nito Viveros MD When: 12-14 days Disposition: Jail facility Minutes spent on discharge:: 40 Patient Condition:: Stable Medical Necessity - Tobacco Use Smoking Status: Former smoker Tobacco Use: Cigarettes Meaningful Use Info Meaningful Use Diagnoses (Choose all that apply): None applicable <Grzegorz Canales F - Last Filed: 07/15/20 17:30> Discharge Date and Diagnosis - Secondary Discharge Diagnosis Chronic Problems: Chronic Problems (Last Reviewed 07/05/20 @ 10:[address] Fco Cardona MD) Nonrheumatic mitral (valve) prolapse (Chronic) Benign essential hypertension (Chronic) Dyslipidemia (Chronic) Hospital Course and Treatment Summary of Care Provided: The patient is a 79 year old F [] - Physical Exam Vitals/I&O's: Vital Signs Temp Pulse Resp BP Pulse Ox 98.7 F 74 15 134/44 H 96 07/15/20 15:15 07/15/20 15:15 07/15/20 15:15 07/15/20 15:15 07/15/20 15:15 Oxygen Flow Rate (L/min) 2 Oxygen Delivery Method Room Air Weight: 153 lb 14.122 oz Body Mass Index (BMI) 23.3 Intake and Output for Last 24 Hours 07/13/20 07/14/20 07/15/20 23:59 23:59 23:59 Intake Total 650 / 650 1550 / 1550 290 / 290 Output Total 300 / 300 300 / 300 300 / 300 Balance 350 / 350 1250 / 1250 -10 / -10 Microbiology Past 72 Hours 07/14/20 16:10 Other - Knee Gram Stain - Final 07/14/20 16:10 Other - Knee Wound Culture - Preliminary No growth-Final to follow 07/14/20 16:08 Tissue - Knee Gram Stain - Final 07/14/20 16:08 Tissue - Knee Wound Culture - Preliminary No growth-Final to follow 07/14/20 16:06 Tissue - Knee Gram Stain - Final 07/14/20 16:06 Tissue - Knee Wound Culture - Preliminary No growth-Final to follow Laboratory Results 07/14/20 14:30: COVID-19 ([facility]) Negative 07/15/20 08:52: WBC 10.4, RBC 2.76 L, Hgb 8.4 L, Hct 24.4 L, MCV 88.4, MCH 30.4, MCHC 34.4, RDW Std Deviation 39.6, RDW Coeff of Hiwot 12.1, Plt Count 199, MPV 10.6, Immature Gran % (Auto) 0.400, Neut % (Auto) 78.5 H, Lymph % (Auto) 9.0 L, Ralls % (Auto) 8.4, Eos % (Auto) 3.3, Baso % (Auto) 0.4, Absolute Neuts (auto) 8.2 H, Absolute Lymphs (auto) 0.94, Nucleated RBC % 0 07/15/20 08:52: Sodium 133 L, Potassium 3.7, Chloride 98, Carbon Dioxide 27.0, Anion Gap 8, BUN 18, Creatinine 0.79, Estim Creat Clear Calc 47.53, Est GFR (MDRD) Af Amer 91, Est GFR (MDRD) Non-Af 75, BUN/Creatinine Ratio 22.9 H, Glucose 119 H, Calcium 8.7 Current Medications Acetaminophen (Tylenol) 650 mg PO Q6H PRN PRN PRN Reason: Pain Score 1-10/Temp > 100.7 F Last Admin: 07/15/20 15:05 Dose: 650 mg Documented by: Amlodipine Besylate (Norvasc) 5 mg PO DAILY [facility] Last Admin: 07/15/20 12:18 Dose: Not Given Documented by: Bupropion HCl (Wellbutrin Xl) 300 mg PO DAILY [facility] Last Admin: 07/15/20 09:36 Dose: 300 mg Documented by: Carvedilol (Coreg) 3.125 mg PO BID [facility] Last Admin: 07/15/20 12:18 Dose: Not Given Documented by: Clonazepam (Klonopin) 0.5 mg PO TID PRN PRN PRN Reason: ANXIETY Last Admin: 07/13/20 21:31 Dose: 0.5 mg Documented by: Cefazolin Sodium () 1 gm in 50 mls @ 100 mls/hr IV Q8 [facility] Last Infusion: 07/15/20 14:55 Dose: Infused Documented by: Lisinopril (Zestril) 20 mg PO DAILY [facility] Last Admin: 07/15/20 12:18 Dose: Not Given Documented by: Melatonin (Melatonin) 3 mg PO QHS PRN PRN PRN Reason: INSOMNIA Last Admin: 07/13/20 21:31 Dose: 3 mg Documented by: Ondansetron HCl (Zofran) 4 mg IV Q8H PRN PRN PRN Reason: NAUSEA/VOMITING Pantoprazole Sodium (Protonix) 20 mg PO BID [facility] Last Admin: 07/15/20 09:36 Dose: 20 mg Documented by: Rivaroxaban (Xarelto) 10 mg PO DAILY@0600 [facility] Last Admin: 07/15/20 05:44 Dose: 10 mg Documented by: Sertraline HCl (Zoloft) 100 mg PO DAILY [facility] Last Admin: 07/15/20 09:36 Dose: 100 mg Documented by: Simvastatin (Zocor) 20 mg PO QHS [facility] Last Admin: 07/14/20 21:46 Dose: Not Given Documented by: Sodium Chloride () 10 - 40 ml IV UD PRN PRN Reason: SALINE FLUSH Last Admin: 07/14/20 05:02 Dose: 10 ml Documented by: Addendum: Dr. Canales I personally examined the patient and reviewed the chart. I agree with the above. 79-year-old female presents after being discharged after a right total knee replacement. She states that she went home and that she had 4 5 fall secondary to her left knee giving out. Her son also states that she seemed to be having hallucinations and she did seem to be a little bit slower today this could be secondary to narcotic use therefore this will be limited. We will resume her home meds except for her oxycodone, and her Benadryl. We will have her evaluated by PT/OT for possible rehab placement. Appreciate orthopedic surgery and their consultation. 07/14/2020: Doing well today, she is scheduled for surgery for washout and repair of her wound dehiscence. We will continue with antibiotics until cultures are resulted. She is on Ancef and then will be transitioned to oral doxycycline after surgery. We will discuss the case with case management and work on fdc facility placement. 07/15/2020: She had a little bit of a rough night last night. She was little bit agitated and was confused as to where she was. She did come out of it and she does remember some of the episode and states that she is embarrassed of asthma think she said and did. Other than the behavioral disturbance overnight. She feels fine she is little bit tired she did not sleep very well, but the pain in her knee is controlled and the Gram stain from wound cultures have all been negative. She did get approved for SNF placement and therefore will be discharged today to a fdc facility on doxycycline. She will follow- up with Dr. Viveros as an outpatient as previously scheduled. I discussed with her the plan for discharge and she expressed understanding of the risks and benefits of going to a fdc facility today. Inpatient E&M: [id number] Disch Hosp
--- NOTE | 2020-07-15 17:16 | CASEMGMT ---
Social Work SW met with pt and introduce self and role of SW. SW discussed d/c plan with pt and pt is agreeable she needs SNF and would prefer [facility]. [facility] call to [facility] and they do not have any beds available. SW met with pt and reviewed list of in network facilities. Pt second choice is [facility]. Phone call to Louann at [facility] and they are able to accept pt. Precert started and obtained this afternoon. Physician notified and would like to discharge pt today. SW met with pt and explained precert has been obtained, pt agreeable to d/c today. [facility] with [facility] for [facility]:00 [facility]. SW requested wheelchair Van, however only a stretcher is available and dispatcher states ride will be billed at level. HENS 7000 form completed as well as Covid Screen. Orders faxed to [facility] and Louann at [facility], pt and nursing notified of d/c time. Pt states she has notified next of kin and no call from SW is needed. Plan: [facility], 7:00 [facility] [employer] TIM Patel
--- NOTE | 2020-07-15 18:16 | NURSING ---
Report called to nurse Joel nick Downey.
== END 2020-07-15 16:45 | disposition skilled nursing facility (03) | DRG 467 ==
LOC: ED 09:35 → PCU 11:22
PROVIDERS: Anesthesiology; Orthopaedic Surgery; Physician Assistant; Admitting Provider Family Medicine; Emergency Provider Emergency Medicine; PCP Family Medicine; Visit Provider Family Medicine
PROC: 0SPC0NZ Removal of Patellofemoral Synthetic Substitute from Right Knee Joint, Open Approach (ICD-10-PCS; CPT 27447; principal; 2020-07-14 15:05)
DX: M17.11 Unilateral primary osteoarthritis, right knee (principal); T81.31XA Disruption of external operation (surgical) wound, not elsewhere classified, initial encounter; E87.1 Hypo-osmolality and hyponatremia; K51.90 Ulcerative colitis, unspecified, without complications; D62 Acute posthemorrhagic anemia; Z96.651 Presence of right artificial knee joint; R29.6 Repeated falls; S09.90XA Unspecified injury of head, initial encounter; R62.7 Adult failure to thrive; I10 Essential (primary) hypertension; E78.5 Hyperlipidemia, unspecified; K21.9 Gastro-esophageal reflux disease without esophagitis; F41.9 Anxiety disorder, unspecified; F32.9 Major depressive disorder, single episode, unspecified; I25.10 Atherosclerotic heart disease of native coronary artery without angina pectoris; W06.XXXA Fall from bed, initial encounter; Y83.8 Other surgical procedures as the cause of abnormal reaction of the patient, or of later complication, without mention of misadventure at the time of the procedure; Y79.2 Prosthetic and other implants, materials and accessory orthopedic devices associated with adverse incidents; Z87.891 Personal history of nicotine dependence; I34.1 Nonrheumatic mitral (valve) prolapse; K52.831 Collagenous colitis; E87.6 Hypokalemia; W22.8XXA Striking against or struck by other objects, initial encounter; Z11.59 Encounter for screening for other viral diseases; Z79.899 Other long term (current) drug therapy; Z79.82 Long term (current) use of aspirin
CPT/HCPCS: 36415; 70450; 71046; 73502; 73560; 80048; 80076; 82962; 83735; 85025; 85027; 85610; 85730; 86850; 86900; 86901; 86920; 86922; 87070; 87075; 87081; 87102; 87205; 87206; 87635; 88305; 88311; 93005; 96361; 96365; 96366; 96375; 97110; 97116; 97161; 97162; 97166; 97530; 99218; 99285; C1776; C9803; J7030; J7040; J7120; P9016; A4216; G0378; G0379; J2405; U0003

== ENCOUNTER 2021-03-24 15:09 | Emergency (ER) | payer MEDICARE, SELFPAY ==
[2020-07-14 14:38] VITALS: BMI 23.3
[2021-03-24 15:10] VITALS: BP 158/73; PULSE 66; RESP 15; TEMP 36.8; O2SAT 96; BMI 22.3
--- NOTE | 2021-03-24 15:13 | RAD_ITS ---
STUDY: X-RAY - LEFT HAND REASON FOR EXAM: Female, 80 years old. INJURY -- IN WAITING ROOM TECHNIQUE: 3 view(s) of the hand. COMPARISON: None. FINDINGS: There is an acute oblique fracture of the fifth proximal phalanx diaphysis with dorsal angulation. There is fifth digit soft tissue swelling. No dislocation. There is mild diffuse DIP joint space narrowing. RAD/Hand Min 3 Views IMPRESSION: Acute oblique fracture of the fifth proximal phalanx diaphysis with dorsal angulation. No dislocation. There is fifth digit soft tissue swelling. Electronically Signed: Pablo Price MD at 15:57 EDT Tel , Service support ,
[2021-03-24] MEDS: Lidocaine 1% (20 ml mdv) 20 ML Vial INFILT (17:32)
--- NOTE | 2021-03-24 17:32 | EDS_ITS ---
HPI History of Present Illness Chief Complaint: Upper Extremity Injury Informant: patient Occured/Mechanism Mechanism/Context: Yes fall and Yes same level fall Onset/Context/Timing Onset: Today Context: Sudden Onset Timing: Continuous Quality of Pain: Aching Location: Left fifth finger Worsened by: Movement Relieved by: Rest Narrative Narrative: Patient presents with injury to her left fifth finger that occurred today. Patient states she tripped and fell while she was pumping gas. Patient states she landed on her left side. Patient states her tetanus is up-to-date. Patient states the pain is worse over the left fifth finger. Patient states the pain is worse with movement. Patient denies any paresthesias or weakness. Patient is unsure if she hit her head but does not think she lost any consciousness. Patient admits to mild headache. Patient also admits to some mild pain over her left knee. Patient states that when she got up she noticed her finger was deviated radially but she pushed it back to try and straighten it out. Tetanus Immunization: <5 years [facility] Medical History (Updated 03/24/21 @ 17:[address] Donnie Segura, DO) Atherosclerosis of coronary artery of [place] heart without angina pectoris Benign essential hypertension Collagenous colitis Depression Dyslipidemia Nonrheumatic mitral (valve) prolapse Home Medications omeprazole 20 mg PO BID 03/20/14 [History Last Taken 07/11/20] clonazepam 0.5 mg PO TID PRN PRN 09/05/14 [History Last Taken 09/04/14 21:00] bupropion HCl 300 mg PO DAILY 08/10/16 [History Last Taken Unknown] simvastatin 20 mg tablet 20 mg PO QHS 02/18/19 [History Last Taken Unknown] quinapril 20 mg tablet 20 mg PO DAILY tab 07/05/20 [History Last Taken 07/11/20] sertraline 100 mg tablet 100 mg PO DAILY tab 07/05/20 [History Last Taken Unknown] rivaroxaban 10 mg PO DAILY@0600 #6 tab 07/12/20 [Rx Last Taken Unknown] sennosides-docusate sodium 2 tab PO BID #30 tab 07/12/20 [Rx Last Taken Unknown] acetaminophen 650 mg PO Q6H PRN PRN tab 07/15/20 [Rx Last Taken Unknown] melatonin 3 mg PO QHS PRN PRN tab 07/15/20 [Rx Last Taken Unknown] amlodipine 5 mg tablet 5 mg PO DAILY #90 tab 12/01/20 [Rx Last Taken Unknown] hydrochlorothiazide 12.5 mg tablet 12.5 mg PO DAILY #90 tab 12/06/20 [Rx Last Taken Unknown] carvedilol 3.125 mg tablet 3.125 mg PO BID #180 tab 03/02/21 [Rx Last Taken Unknown] clindamycin HCl [Cleocin HCl] 300 mg PO Q6H #28 capsule 03/24/21 [Rx Last Taken Unknown] Allergy/AdvReac Type Severity Reaction Status Date / Time atorvastatin calcium Allergy Unknown Verified 03/24/21 15:12 [From Lipitor] Beta-Blockers Allergy Unknown Verified 03/24/21 15:12 (Beta-Adrenergic Bloc cefaclor [From Ceclor] Allergy Unknown Verified 03/24/21 15:12 Sulfa (Sulfonamide Allergy Hives Verified 03/24/21 15:12 Antibiotics) Tetracyclines Allergy Unknown Verified 03/24/21 15:12 oxycodone AdvReac NEEDS Verified 03/24/21 15:12 FOLLOW-UP propoxyphene [From Darvon] AdvReac Nausea Verified 03/24/21 15:12 Family History Father CAD (coronary artery disease) Myocardial infarction Hypertension Mother Hypertension Myocardial infarction CAD (coronary artery disease) Surgical History H/O arthroscopic knee surgery History of cataract surgery History of hysterectomy History of left heart catheterization (11/01/14) History of tonsillectomy History of tubal ligation Social History Smoking Status: Former smoker how long ago did patient quit smokin + years ago alcohol intake: current alcohol intake frequency: holidays/special occasions only Alcohol type: wine substance use type: does not use caffeine: Yes Type: carbonated beverages Number of servings: 6 ROS ROS ED Constitutional Constitutional ED: Denies chills or fever(s) Eyes Eyes: Denies blurry vision or change in vision ENT ENT ED: Denies rhinorrhea or sore throat Cardiovascular Cardiovascular: Denies chest pain or palpitations Respiratory/Chest Respiratory/Chest: Denies cough or dyspnea Gastrointestinal Gastrointestinal: Denies nausea or vomiting Genitourinary Genitourinary ED: Denies dysuria or hematuria Musculoskeletal Musculoskeletal: Reports neck pain; Denies back pain Integumentary Denies abscess or rash Neurologic Neurologic: Reports headache(s); Denies weakness Allergic/Immunologic Allergic/Immunologic ED: Denies mouth swelling or urticaria EXAM Physical Exam Const Vital Signs: 03/24/21 15:10 Temperature 98.3 F Temperature Source Temporal Pulse Rate 66 Respiratory Rate 15 Blood Pressure 158/73 H Blood Pressure Mean 101 Pulse Ox 96 Oxygen Delivery Method Room Air Positive well nourished and well developed General Appearance ED: well developed HEENT Reports moist mucous membranes normocephalic; Negative for tenderness Eyes PERRL and EOMs intact bilaterally Neck full ROM and supple Extremity Extremity Narrative: There are superficial abrasions noted over the dorsal aspect of the left hand over the fifth metacarpal. There is also a small abrasion over the volar aspect of the left PIP joint. There is no active bleeding. There is no gapping of the wound margins. There is no obvious deformity the proximal phalanx of the left fifth finger. There is edema and ecchymosis. Range of motion was limited in flexion and extension of the PIP, and MP joints of the left fifth finger secondary to pain. Sensation was intact to light touch in all digits. Capillary refill was less than 2 seconds in all digits. There is also mild abrasion over the anterior aspect of the left knee. There is no obvious deformity. There is good range of motion. There is some mild tenderness. Right Upper Extremity: hand and digits Neuro oriented x3, CN's II-XII intact bilaterally, moves all extremities, no focal motor deficits and no sensory deficits noted Sensorium / Orientation: alert and oriented to person Psych mental status grossly normal MDM MDM MDM Narrative Medical decision making narrative: X-rays of the left fifth finger were obtained. There are three views. On my interpretation, there is a transverse fracture of the proximal phalanx of the left fifth finger. There is dorsal angulation of the distal fragment. There are no foreign bodies. There is some soft tissue swelling. Radiologist also interpreted the x-ray and agrees. The left fifth finger was anesthetized 1% plain lidocaine via digital block. The fracture was reduced. The finger was placed in an aluminum splint. The finger was claire taped to the ring finger. Patient tolerated the procedure well. Neurovascular exam was intact before and after reduction and placement of the splint. Patient was given a prescription for clindamycin. Patient was given her first dose here. Patient was instructed to ice and elevate the left hand. Patient states she has seen Dr. Nito Viveros in the past for orthopedics. Patient request to follow-up with him. Patient was instructed to leave the splint in place until she is able to follow-up with him. Patient understood and was agreeable with the plan. All questions were answered. Radiography Diagnostic Testing: Radiology Impression Hand X-Ray 03/24/21 15:13 IMPRESSION: Acute oblique fracture of the fifth proximal phalanx diaphysis with dorsal angulation. No dislocation. There is fifth digit soft tissue swelling. Electronically Signed: Pablo Price MD at 15:57 EDT Tel , Service support , Procedures Upper Extremity Splints Upper Extremity Splint: [place] Splint Fabrication: Fabricated Location: Left (Fifth finger) Discharge Plan Triage Chief Complaint: Upper Extremity Injury ED Provider: Donnie Segura Dx/Rx/DC Orders Clinical Impression: Fracture of proximal phalanx of left little finger, Multiple abrasions Instructions: ED Fracture, Finger, Open Prescriptions: New clindamycin HCl [Cleocin HCl] 300 MG capsule 300 mg PO Q6H Qty: 28 RF: 0 No Action simvastatin 20 mg tablet 20 mg PO QHS RF: 0 quinapril 20 mg tablet 20 mg PO DAILY RF: 0 sertraline 100 mg tablet 100 mg PO DAILY RF: 0 omeprazole 20 MG capsule 20 mg PO BID RF: 0 clonazepam 0.5 MG tablet 0.5 mg PO TID PRN PRN (Reason: Anxiety) RF: 0 bupropion HCl 300 MG tablet extended release 24 hr 300 mg PO DAILY RF: 0 sennosides-docusate sodium 1 TABLET tablet 2 tab PO BID Qty: 30 RF: 1 rivaroxaban 10 MG tablet 10 mg PO DAILY@0600 Qty: 6 RF: 0 acetaminophen 325 MG tablet 650 mg PO Q6H PRN PRN (Reason: Pain Score 1-10/Temp > 100.7 F) RF: 0 melatonin 3 MG tablet 3 mg PO QHS PRN PRN (Reason: Insomnia) RF: 0 amlodipine 5 mg tablet 5 mg PO DAILY Qty: 90 RF: 3 hydrochlorothiazide 12.5 mg tablet 12.5 mg PO DAILY Qty: 90 RF: 3 carvedilol 3.125 mg tablet 3.125 mg PO BID Qty: 180 RF: 3 Primary Care Provider: Otis Mcnair III Referrals: Otis Mcnair III, MD [Primary Care Provider] - 1-2 Weeks Nito Viveros MD [STAFF PHYSICIAN] - 3-5 Days Disposition Disposition: Home, self care Discharge Date/Time: 03/24/21 17:55
[2021-03-24] MEDS: Clindamycin HCl 150 MG Capsule 300 MG PO (17:52)
[2021-03-24 17:54] VITALS: BP 121/70; PULSE 62; RESP 17; O2SAT 99
== END 2021-03-24 17:55 | disposition home or self-care (01) ==
PROVIDERS: Emergency Provider Emergency Medicine; PCP Family Medicine
DX: S62.617A Displaced fracture of proximal phalanx of left little finger, initial encounter for closed fracture (principal); I25.10 Atherosclerotic heart disease of native coronary artery without angina pectoris; E78.5 Hyperlipidemia, unspecified; I10 Essential (primary) hypertension; F32.9 Major depressive disorder, single episode, unspecified; W01.0XXA Fall on same level from slipping, tripping and stumbling without subsequent striking against object, initial encounter; Z87.891 Personal history of nicotine dependence; Z79.899 Other long term (current) drug therapy
CPT/HCPCS: 73130; 99283

== ENCOUNTER → 2021-05-03 12:52 | Outpatient (CLI) | payer MEDICARE, SELFPAY ==
[2021-04-28 15:41] VITALS: BMI 22.3
[2021-05-03 14:06] LABS: ALB/GLOB Ratio 1.1 RATIO (0.9-2.4); AST(SGOT) 21 U/L (15-37); Alanine Aminotransfer ALT/SGPT 26 U/L (13-56); Albumin, Serum 3.8 g/dL (3.2-5.0); Alkaline Phosphatase 120 U/L (45-117); Anion Gap 8 (5-15); BUN 12 mg/dL (7-18); BUN/Creat Ratio 11.8 RATIO (10-20); Calcium,Total 9.9 mg/dL (8.5-10.1); Chloride 97 mmol/L (98-107); Cholesterol 168 mg/dL (200); Creatinine, Serum 1.02 mg/dL (0.55-1.02); EST Glomerular Filtration Rate 56 mL/min (>60); Est Glom Filt Rate - Afr Amer 67 mL/min (>60); Globulin 3.4 g/dL (2.2-4.2); Glucose 95 mg/dL (74-106); High Density Lipoprotein 53 mg/dL; Iron 77 ug/dL (50-170); Iron Binding Capacity,Total 391 ug/dL (250-450); Magnesium 1.7 mg/dL (1.6-2.6); PERCENT IRON SATURATION 19.7 % (15.0-55.0); Potassium 3.6 mmol/L (3.5-5.1); Protein, Total 7.2 g/dL (6.4-8.2); Sodium Level 135 mmol/L (136-145); Triglycerides 203 mg/dL; Very Low Density Lipoprotein 41 mg/dL (5-40)
[2021-05-03 14:23] LABS: Amphetamine Urine VISTA NEGATIVE (<1000 ng/mL); Barbiturate Urine VISTA NEGATIVE (< 200 ng/mL); Benzodiazepine Urine VISTA NEGATIVE (< 200 ng/mL); Cocaine Urine VISTA NEGATIVE (< 300 ng/mL); Ecstacy Urine VISTA POSITIVE (< 500 ng/mL); Methadone Urine VISTA NEGATIVE (< 300 ng/mL); PCP Urine VISTA NEGATIVE (< 25 ng/mL); THC Urine VISTA NEGATIVE (< 50 ng/mL); Vista UDS pH Range 7
[2021-05-03 14:51] LABS: Hepatitis C Antibody Non-Reactive (Nonreactive)
== END ==
PROVIDERS: PCP Family Medicine; Visit Provider Nurse Practitioner Family
DX: R79.0 Abnormal level of blood mineral (principal); I10 Essential (primary) hypertension; E78.5 Hyperlipidemia, unspecified; Z79.899 Other long term (current) drug therapy; Z11.59 Encounter for screening for other viral diseases
CPT/HCPCS: 80053; 80061; 80307; 83540; 83550; 83735; 86803

== ENCOUNTER → 2021-05-09 16:09 | Outpatient (CLI) | payer MEDICARE, SELFPAY ==
[2021-04-28 15:41] VITALS: BMI 22.3
[2021-05-09 18:35] LABS: Amphetamine Urine VISTA NEGATIVE (<1000 ng/mL); Barbiturate Urine VISTA NEGATIVE (< 200 ng/mL); Benzodiazepine Urine VISTA POSITIVE (< 200 ng/mL); Cocaine Urine VISTA NEGATIVE (< 300 ng/mL); Ecstacy Urine VISTA POSITIVE (< 500 ng/mL); Methadone Urine VISTA NEGATIVE (< 300 ng/mL); PCP Urine VISTA NEGATIVE (< 25 ng/mL); THC Urine VISTA NEGATIVE (< 50 ng/mL); Vista UDS pH Range 5
== END ==
PROVIDERS: PCP Family Medicine; Visit Provider Nurse Practitioner Family
DX: R89.2 Abnormal level of other drugs, medicaments and biological substances in specimens from other organs, systems and tissues (principal)
CPT/HCPCS: 80307

== ENCOUNTER → 2021-05-22 14:31 | Outpatient (CLI) | payer MEDICARE, SELFPAY ==
[2021-04-28 15:41] VITALS: BMI 22.3
--- NOTE | 2021-05-22 14:42 | RAD_ITS ---
STUDY: X-RAY - PELVIS REASON FOR EXAM: Female, 80 years old. INFLAMMATORY POLYARTHROPATHY TECHNIQUE: One view of the pelvis was obtained. COMPARISON: None. FINDINGS: There is a non-specific bowel gas pattern. Normal visualized soft tissue structures. Normal bilateral iliac wings, sacroiliac joints and visualized sacrum. Normal visualized bilateral superior and inferior pubic rami. There are degenerative changes of the pubic symphysis with articular narrowing and sclerosis. Normal ischial tuberosities. Normal visualized right femoral head. Normal right acetabulum. There is moderate articular joint space narrowing of the right hip. Normal visualized left femoral head. Normal left acetabulum. There is moderate articular joint space narrowing of the left hip. RAD/Pelvis 1 or 2 Views IMPRESSION: Moderate degree of bilateral joint space narrowing. Electronically Signed: Rancho Simpson MD at 22:10 EDT , Service support ,
[2021-05-22 17:59] LABS: Absolute Lymphocyte Count 1.47 X10^3/uL (0.83-4.51); Absolute Neutrophil Count 4.8 X10^3/uL (2.0-7.7); Basophil# 0.04 X10^3/uL; Basophil% 0.6 % (0-1); Eosinophil# 0.11 X10^3/uL; Eosinophils% 1.6 % (0-5); Hemoglobin 12.4 g/dL (12.0-15.0); Lymphocyte # 1.47 X10^3/ul (0.83-4.51); Lymphocyte % 20.9 % (19-41); Mean Corp Hgb Conc 33.5 g/dL (32-36); Mean Corpuscular Hgb 30.7 pg (27.0-32.0); Mean Corpuscular Volume 91.6 fL (81-99); Mean Platelet Vol. 10.6 fl (6.2-12.0); Monocyte# 0.57 X10^3/uL; Monocyte% 8.1 % (0-10); NRBC Flagged by Analyzer 0 % (0-5); Neutrophil # 4.83 X10^3/uL (2.7-7.7); Neutrophil % 68.7 % (47-70); Platelet Count 301 K/mm3 (150-450); RBC Distribution Width CV 11.9 % (11.6-14.6); RBC Distribution Width SD 40.1 fl (35.1-43.9); Red Blood Count 4.04 M/mm3 (4.2-5.4)
[2021-05-22 18:06] LABS: AST(SGOT) 30 U/L (15-37); Alanine Aminotransfer ALT/SGPT 46 U/L (13-56); Albumin, Serum 3.9 g/dL (3.2-5.0); Alkaline Phosphatase 181 U/L (45-117); Anion Gap 7 (5-15); BUN 15 mg/dL (7-18); BUN/Creat Ratio 15.9 RATIO (10-20); Calcium,Total 9.9 mg/dL (8.5-10.1); Chloride 96 mmol/L (98-107); Creatinine, Serum 0.94 mg/dL (0.55-1.02); EST Glomerular Filtration Rate 61 mL/min (>60); Est Glom Filt Rate - Afr Amer 74 mL/min (>60); Globulin 3.8 g/dL (2.2-4.2); Glucose 80 mg/dL (74-106); Potassium 3.2 mmol/L (3.5-5.1); Protein, Total 7.7 g/dL (6.4-8.2); Rheumatoid Factor < 10.0 IU/mL (<15); Sodium Level 133 mmol/L (136-145)
[2021-05-22 18:37] LABS: Erythrocyte Sedimentation Rate 19 mm/hr (0-30)
[2021-05-23 09:32] LABS: Hepatitis B Surface Antibody Non-Reactive; Hepatitis B Surface Antigen Non-Reactive (Nonreactive); Hepatitis C Antibody Non-Reactive (Nonreactive)
[2021-05-24 14:44] LABS: ANTINUCLEAR ANTIBODIES DIRECT Positive (Negative)
[2021-05-25 16:24] LABS: CCP IgG Antibodies 7 units (0-19)
== END ==
PROVIDERS: PCP Nurse Practitioner Family; Referring Provider Internal Medicine Rheumatology; Visit Provider Internal Medicine Rheumatology
DX: M06.4 Inflammatory polyarthropathy (principal); M19.041 Primary osteoarthritis, right hand; M17.0 Bilateral primary osteoarthritis of knee; I25.10 Atherosclerotic heart disease of native coronary artery without angina pectoris; K51.90 Ulcerative colitis, unspecified, without complications; I10 Essential (primary) hypertension; K21.9 Gastro-esophageal reflux disease without esophagitis; E78.5 Hyperlipidemia, unspecified; F41.9 Anxiety disorder, unspecified
CPT/HCPCS: 36415; 72170; 80053; 85025; 85652; 86038; 86140; 86200; 86431; 86706; 86803; 87340

== ENCOUNTER → 2021-06-01 12:35 | Outpatient (CLI) | payer MEDICARE, SELFPAY ==
[2021-04-28 15:41] VITALS: BMI 22.3
[2021-06-01 13:39] LABS: Potassium 3.4 mmol/L (3.5-5.1)
[2021-06-01 13:53] LABS: Benzodiazepine Urine VISTA POSITIVE (< 200 ng/mL); Vista UDS pH Range 6
== END ==
PROVIDERS: PCP Nurse Practitioner Family; Visit Provider Nurse Practitioner Family
DX: R89.2 Abnormal level of other drugs, medicaments and biological substances in specimens from other organs, systems and tissues (principal); E87.6 Hypokalemia
CPT/HCPCS: 80307; 84132

== ENCOUNTER → 2021-06-14 11:15 | Outpatient (CLI) | payer MEDICARE, SELFPAY ==
[2021-06-14 12:27] LABS: EXAGEN MAILED SPECIMEN
[2021-06-14 12:43] LABS: Prothrombin Time (Protime)PT. 12.2 SECONDS (11.7-14.9)
[2021-06-14 12:44] LABS: Partial Thromboplast Time 33.2 Seconds (24.1-36.2)
[2021-06-14 15:16] LABS: Color, Urine Yellow (Yellow); Glucose, Dipstick Normal (Normal); Ketone-Dipstick Negative (Negative); Leukocyte Esterase-Dipstick 25 /ul (Negative); Nitrite-Dipstick Negative (Negative); Occult Blood-Urine Negative /ul (Negative); Protein-Dipstick Negative (Negative); Specific Gravity, Urine 1.015 (1.002-1.030); Urine Bilirubin Dipstick Negative (Negative); Urine Clarity Sl. Cloudy (Clear); Urine Urobilinogen Normal (Normal)
[2021-06-14 15:20] LABS: Protein, Urine (Random) 18.9 mg/dL (<11.9); Protein:Creat Ratio 156 mg/g CRE (0-200)
[2021-06-16 10:54] LABS: Dilute Prothrombin Time (dPT) 41.3 sec (0.0-55.0); Dilute Russell Viper Venom 50.8 sec (0.0-47.0); Hexagonal Phase Phospholipid 0 sec (0-11); PTT-LA 39.1 sec (0.0-51.9); Thrombin Time 16.8 sec (0.0-23.0); dPT Confirm Ratio 1.27 Ratio (0.00-1.40)
[2021-06-16 10:55] LABS: Thrombin Time 16.6 sec (0.0-23.0)
[2021-06-16 21:09] LABS: Interpretation Comment: (.)
== END ==
PROVIDERS: PCP Nurse Practitioner Family; Referring Provider Internal Medicine Rheumatology; Visit Provider Internal Medicine Rheumatology
DX: M06.4 Inflammatory polyarthropathy (principal); R76.8 Other specified abnormal immunological findings in serum; M19.041 Primary osteoarthritis, right hand; M17.0 Bilateral primary osteoarthritis of knee; K51.90 Ulcerative colitis, unspecified, without complications; I25.10 Atherosclerotic heart disease of native coronary artery without angina pectoris; I10 Essential (primary) hypertension; K21.9 Gastro-esophageal reflux disease without esophagitis
CPT/HCPCS: 36415; 81002; 82570; 84156; 85598; 85610; 85670; 85730

== ENCOUNTER → 2021-07-13 10:28 | Outpatient (CLI) | payer MEDICARE, SELFPAY ==
[2021-07-13 12:31] LABS: Absolute Lymphocyte Count 1.08 X10^3/uL (0.83-4.51); Absolute Neutrophil Count 3.1 X10^3/uL (2.0-7.7); Basophil# 0.04 X10^3/uL; Basophil% 0.8 % (0-1); Eosinophil# 0.19 X10^3/uL; Eosinophils% 3.9 % (0-5); Hematocrit 35.1 % (37-47); Hemoglobin 11.3 g/dL (12.0-15.0); Lymphocyte # 1.08 X10^3/ul (0.83-4.51); Lymphocyte % 22.4 % (19-41); Mean Corp Hgb Conc 32.2 g/dL (32-36); Mean Corpuscular Hgb 30.3 pg (27.0-32.0); Mean Corpuscular Volume 94.1 fL (81-99); Mean Platelet Vol. 11.5 fl (6.2-12.0); Monocyte# 0.38 X10^3/uL; Monocyte% 7.9 % (0-10); NRBC Flagged by Analyzer 0 % (0-5); Neutrophil # 3.12 X10^3/uL (2.7-7.7); Neutrophil % 64.6 % (47-70); Platelet Count 208 K/mm3 (150-450); RBC Distribution Width CV 12.3 % (11.6-14.6); RBC Distribution Width SD 42.3 fl (35.1-43.9); Red Blood Count 3.73 M/mm3 (4.2-5.4); White Blood Count 4.8 K/mm3 (4.4-11.0)
[2021-07-13 12:52] LABS: AST(SGOT) 14 U/L (15-37); Alanine Aminotransfer ALT/SGPT 20 U/L (13-56); Albumin, Serum 3.3 g/dL (3.2-5.0); Alkaline Phosphatase 96 U/L (45-117); Anion Gap 4 (5-15); BUN 17 mg/dL (7-18); BUN/Creat Ratio 15.9 RATIO (10-20); Calcium,Total 9.3 mg/dL (8.5-10.1); Chloride 107 mmol/L (98-107); Creatinine, Serum 1.07 mg/dL (0.55-1.02); EST Glomerular Filtration Rate 53 mL/min (>60); Est Glom Filt Rate - Afr Amer 64 mL/min (>60); Globulin 3.2 g/dL (2.2-4.2); Glucose 74 mg/dL (74-106); Potassium 3.3 mmol/L (3.5-5.1); Protein, Total 6.5 g/dL (6.4-8.2); Sodium Level 140 mmol/L (136-145)
== END ==
PROVIDERS: PCP Nurse Practitioner Family; Referring Provider Internal Medicine Rheumatology; Visit Provider Internal Medicine Rheumatology
DX: M06.4 Inflammatory polyarthropathy (principal); R76.8 Other specified abnormal immunological findings in serum; M19.041 Primary osteoarthritis, right hand; M17.0 Bilateral primary osteoarthritis of knee; K51.90 Ulcerative colitis, unspecified, without complications; I25.10 Atherosclerotic heart disease of native coronary artery without angina pectoris; I10 Essential (primary) hypertension; K21.9 Gastro-esophageal reflux disease without esophagitis; E78.5 Hyperlipidemia, unspecified; F41.9 Anxiety disorder, unspecified
CPT/HCPCS: 36415; 80053; 85025

== ENCOUNTER → 2021-07-18 09:31 | Outpatient (CLI) | payer MEDICARE, SELFPAY ==
[2021-07-18 09:44] LABS: Potassium 2.8 mmol/L (3.5-5.1)
== END ==
PROVIDERS: PCP Nurse Practitioner Family; Referring Provider Nurse Practitioner Family; Visit Provider Nurse Practitioner Family
DX: E87.6 Hypokalemia (principal)
CPT/HCPCS: 84132

== ENCOUNTER 2021-07-19 13:49 | Emergency (ER) | payer MEDICARE, SELFPAY ==
[2021-07-19 13:49] VITALS: BP 151/78; PULSE 65; RESP 16; TEMP 35.7; O2SAT 100; BMI 22.5
--- NOTE | 2021-07-19 14:56 | EKG12_ITS ---
Test Reason : Blood Pressure : / mmHG Vent. Rate : 050 BPM Atrial Rate : 050 BPM P-R Int : 144 ms QRS Dur : 088 ms QT Int : 448 ms P-R-T Axes : 062 019 054 degrees QTc Int : 408 ms Sinus bradycardia Nonspecific ST abnormality Abnormal ECG Confirmed by CHRIS NEWMAN, KT ([id number]), proposal editor WARREN CORREA ([id number]) on 07/21/2021 1:16:46 PM Referred By: LEONEL Confirmed By:CRISTAL PEREZ MD
[2021-07-19 15:01] VITALS: BP 143/74; PULSE 50; RESP 16; O2SAT 96
--- NOTE | 2021-07-19 15:06 | EDS_ITS ---
HPI History of Present Illness Chief Complaint: Abn Labs Informant: patient Onset/Context/Timing Onset: Yesterday Context: Gradual Onset Timing: Continuous Quality: Malaise Location: Generalized Worsened by: Nothing Relieved by: Nothing Narrative Narrative: Patient presents with low potassium that was noticed yesterday. Patient states she has been feeling fatigued and malaise since yesterday. Patient states she had an episode of diarrhea yesterday. Patient states it has been constant. Patient states nothing makes it worse and nothing makes it better. Patient states she has a history of hypokalemia. Patient denies any chest pain or palpitations. Patient denies any cough or shortness of breath. [facility] Medical History (Updated 07/19/21 @ 18:[address] Donnie Segura, DO) Atherosclerosis of coronary artery of [place] heart without angina pectoris Benign essential hypertension Collagenous colitis Depression Dyslipidemia Nonrheumatic mitral (valve) prolapse Home Medications omeprazole 20 mg PO BID 03/20/14 [History Last Taken 07/11/20] clonazepam 0.5 mg PO TID PRN PRN 09/05/14 [History Last Taken 09/04/14 21:00] bupropion HCl 300 mg PO DAILY 08/10/16 [History Last Taken Unknown] simvastatin 20 mg tablet 20 mg PO QHS 02/18/19 [History Last Taken Unknown] quinapril 20 mg tablet 20 mg PO DAILY tab 07/05/20 [History Last Taken 07/11/20] sertraline 100 mg tablet 100 mg PO DAILY tab 07/05/20 [History Last Taken Unknown] acetaminophen 650 mg PO Q6H PRN PRN tab 07/15/20 [Rx Last Taken Unknown] amlodipine 5 mg tablet 5 mg PO DAILY #90 tab 12/01/20 [Rx Last Taken Unknown] hydrochlorothiazide 12.5 mg tablet 12.5 mg PO DAILY #90 tab 12/06/20 [Rx Last Taken Unknown] carvedilol 3.125 mg tablet 3.125 mg PO BID #180 tab 03/02/21 [Rx Last Taken Unknown] hydroxychloroquine [Plaquenil] 300 mg PO DAILY 07/19/21 [History Last Taken Unknown] potassium chloride 10 meq PO DAILY #5 cap 07/19/21 [Rx Last Taken Unknown] Allergy/AdvReac Type Severity Reaction Status Date / Time atorvastatin calcium Allergy Unknown Verified 07/19/21 13:51 [From Lipitor] Beta-Blockers Allergy Unknown Verified 07/19/21 13:51 (Beta-Adrenergic Bloc cefaclor [From Ceclor] Allergy Unknown Verified 07/19/21 13:51 Sulfa (Sulfonamide Allergy Hives Verified 07/19/21 13:51 Antibiotics) Tetracyclines Allergy Unknown Verified 07/19/21 13:51 oxycodone AdvReac NEEDS Verified 07/19/21 13:51 FOLLOW-UP propoxyphene [From Darvon] AdvReac Nausea Verified 07/19/21 13:51 Family History (Reviewed 04/28/21 @ 16:01 by Yousuf Montiel [employer]LECT[employer] ENGINEER, [employer] ENGINEER-C) Father CAD (coronary artery disease) Myocardial infarction Hypertension Mother Hypertension Myocardial infarction CAD (coronary artery disease) Surgical History H/O arthroscopic knee surgery History of cataract surgery History of hysterectomy History of left heart catheterization (11/01/14) History of tonsillectomy History of tubal ligation Social History Smoking Status: Former smoker how long ago did patient quit smokin + years ago alcohol intake: current alcohol intake frequency: holidays/special occasions only Alcohol type: wine substance use type: does not use caffeine: Yes Type: carbonated beverages Number of servings: 6 ROS ROS ED Constitutional Constitutional ED: Reports chills and subjective; Denies fever(s) Eyes Eyes: Denies blurry vision or change in vision ENT ENT ED: Denies rhinorrhea or sore throat Cardiovascular Cardiovascular: Denies chest pain or palpitations Respiratory/Chest Respiratory/Chest: Denies cough or dyspnea Gastrointestinal Gastrointestinal: Reports diarrhea and nausea; Denies vomiting Genitourinary Genitourinary ED: Denies dysuria or hematuria Musculoskeletal Musculoskeletal: Reports neck pain; Denies back pain Integumentary Denies abscess or rash Neurologic Neurologic: Denies headache(s) or weakness Allergic/Immunologic Allergic/Immunologic ED: Denies mouth swelling or urticaria EXAM Physical Exam Const Vital Signs: 07/19/21 13:49 07/19/21 14:13 07/19/21 15:01 Temperature 96.3 F L Temperature Source Temporal Pulse Rate 65 50 L Respiratory Rate 16 16 Respiratory Effort Normal Blood Pressure 151/78 H 143/74 H Blood Pressure Mean 102 97 Pulse Ox 100 96 Oxygen Delivery Method Room Air Room Air 07/19/21 16:17 Temperature Temperature Source Pulse Rate 53 L Respiratory Rate 15 Respiratory Effort Blood Pressure 152/90 H Blood Pressure Mean 110 Pulse Ox 98 Oxygen Delivery Method Room Air Positive well nourished and well developed General Appearance ED: well developed HEENT Reports moist mucous membranes Neck supple and no JVD Resp normal respiratory effort and clear to auscultation bilaterally Cardio regular rate, regular rhythm and no murmurs GI normal to inspection, nondistended, normoactive bowel sounds and non-tender Palpation: soft Extremity normal to inspection General Extremety ED: Negative for edema or tenderness General Extremity: Negative for edema Neuro oriented x3, CN's II-XII intact bilaterally and no sensory deficits noted Sensorium / Orientation: alert Motor Exam: strength 5/5 throughout Psych mental status grossly normal Skin no rashes or lesions noted MDM MDM MDM Narrative Medical decision making narrative: EKG was obtained. On my interpretation, shows sinus bradycardia with a rate of 50. There are nonspecific ST-T wave changes. IL interval, QRS interval, QTc interval, and axis were all within normal limits. This was unchanged compared to previous EKG dated 07/14/2020. CBC was within normal limits. Basic metabolic profile was normal except for a potassium of 2.8. Patient was given a dose of IV potassium. Patient was given a dose of oral potassium. Patient was feeling better on reevaluation. Patient was given a prescription for potassium replacement for the next 5 days. Patient was instructed to follow-up with her primary care physician in 5 to 7 days for further evaluation. Patient understood and was agreeable with the plan. All questions were answered. Lab Data Attestation: I reviewed the patient's lab results. Labs: Laboratory Results - last 24 hr 07/19/21 07/19/21 15:15 15:15 WBC 7.8 RBC 4.21 Hgb 12.8 Hct 38.4 MCV 91.2 MCH 30.4 MCHC 33.3 RDW Std Deviation 40.5 RDW Coeff of [place] 12.1 Plt Count 228 MPV 11.2 Immature Gran % (Auto) 0.400 Neut % (Auto) 64.7 Lymph % (Auto) 24.1 [place] % (Auto) 8.2 Eos % (Auto) 1.8 Baso % (Auto) 0.8 Absolute Neuts (auto) 5.1 Absolute Lymphs (auto) 1.89 Nucleated RBC % 0 Sodium 138 Potassium 2.8 L Chloride 104 Carbon Dioxide 28.0 Anion Gap 6 BUN 18 Creatinine 1.05 H Estim Creat Clear Calc 42.94 Est GFR (MDRD) Af Amer 65 Est GFR (MDRD) Non-Af 54 L BUN/Creatinine Ratio 17.1 Glucose 86 Calcium 9.9 EKG Initial EKG: Attestation: I personally reviewed and interpreted this EKG as follows: Interpretation: Sinus Bradycardia (50) and Non-Specific ST Changes Prior EKG tracings: available for review Prior: Unchanged (07/14/2020) Discharge Plan Triage Chief Complaint: Abn Labs ED Provider: Donnie Segura Dx/Rx/DC Orders Clinical Impression: Hypokalemia Instructions: ED Hypokalemia Prescriptions: New potassium chloride 10 mEq capsule, extended release 10 meq PO DAILY Qty: 5 RF: 0 No Action simvastatin 20 mg tablet 20 mg PO QHS RF: 0 quinapril 20 mg tablet 20 mg PO DAILY RF: 0 sertraline 100 mg tablet 100 mg PO DAILY RF: 0 omeprazole 20 MG capsule 20 mg PO BID RF: 0 clonazepam 0.5 MG tablet 0.5 mg PO TID PRN PRN (Reason: Anxiety) RF: 0 bupropion HCl 300 MG tablet extended release 24 hr 300 mg PO DAILY RF: 0 acetaminophen 325 MG tablet 650 mg PO Q6H PRN PRN (Reason: Pain Score 1-10/Temp > 100.7 F) RF: 0 hydroxychloroquine [Plaquenil] 200 mg Tablet 300 mg PO DAILY RF: 0 amlodipine 5 mg tablet 5 mg PO DAILY Qty: 90 RF: 3 hydrochlorothiazide 12.5 mg tablet 12.5 mg PO DAILY Qty: 90 RF: 3 carvedilol 3.125 mg tablet 3.125 mg PO BID Qty: 180 RF: 3 Primary Care Provider: Narayan Gilbert NP Referrals: Narayan Gilbert NP, [employer] [Primary Care Provider] - 5-7 Days Disposition Disposition: Home, Self Care
[2021-07-19 15:23] LABS: Absolute Lymphocyte Count 1.89 X10^3/uL (0.83-4.51); Absolute Neutrophil Count 5.1 X10^3/uL (2.0-7.7); Basophil# 0.06 X10^3/uL; Basophil% 0.8 % (0-1); Eosinophil# 0.14 X10^3/uL; Eosinophils% 1.8 % (0-5); Hematocrit 38.4 % (37-47); Hemoglobin 12.8 g/dL (12.0-15.0); Lymphocyte # 1.89 X10^3/ul (0.83-4.51); Lymphocyte % 24.1 % (19-41); Mean Corp Hgb Conc 33.3 g/dL (32-36); Mean Corpuscular Hgb 30.4 pg (27.0-32.0); Mean Corpuscular Volume 91.2 fL (81-99); Mean Platelet Vol. 11.2 fl (6.2-12.0); Monocyte# 0.64 X10^3/uL; Monocyte% 8.2 % (0-10); NRBC Flagged by Analyzer 0 % (0-5); Neutrophil # 5.07 X10^3/uL (2.7-7.7); Neutrophil % 64.7 % (47-70); Platelet Count 228 K/mm3 (150-450); RBC Distribution Width CV 12.1 % (11.6-14.6); RBC Distribution Width SD 40.5 fl (35.1-43.9); Red Blood Count 4.21 M/mm3 (4.2-5.4); White Blood Count 7.8 K/mm3 (4.4-11.0)
[2021-07-19 15:41] LABS: Anion Gap 6 (5-15); BUN 18 mg/dL (7-18); BUN/Creat Ratio 17.1 RATIO (10-20); Calcium,Total 9.9 mg/dL (8.5-10.1); Chloride 104 mmol/L (98-107); Creatinine, Serum 1.05 mg/dL (0.55-1.02); EST Glomerular Filtration Rate 54 mL/min (>60); Est Glom Filt Rate - Afr Amer 65 mL/min (>60); Estimated Creatinine Clearance 42.94 ml/min; Glucose 86 mg/dL (74-106); Potassium 2.8 mmol/L (3.5-5.1); Sodium Level 138 mmol/L (136-145)
[2021-07-19] MEDS: Potassium Chloride 10mEq/100mL 10 MEQ/100 ML IV.SOLN. 100 MEQ IV BOLUS (16:15)
[2021-07-19 16:17] VITALS: BP 152/90; PULSE 53; RESP 15; O2SAT 98
[2021-07-19] MEDS: Potassium Chloride Oral Tablet 20 MEQ 40 MEQ PO (17:16)
[2021-07-19 18:23] VITALS: BP 128/51; PULSE 68; RESP 17; O2SAT 96
== END 2021-07-19 18:24 | disposition home or self-care (01) ==
PROVIDERS: Emergency Provider Emergency Medicine; PCP Nurse Practitioner Family
DX: E87.6 Hypokalemia (principal); I25.10 Atherosclerotic heart disease of native coronary artery without angina pectoris; I10 Essential (primary) hypertension; E78.5 Hyperlipidemia, unspecified; F32.9 Major depressive disorder, single episode, unspecified; Z79.899 Other long term (current) drug therapy; Z87.891 Personal history of nicotine dependence
CPT/HCPCS: 80048; 85025; 93005; 96365; 99285; J7030; A4216; J2405

== ENCOUNTER → 2021-07-24 16:35 | Outpatient (CLI) | payer MEDICARE, SELFPAY ==
[2021-07-24 16:52] LABS: Potassium 3.6 mmol/L (3.5-5.1)
== END ==
PROVIDERS: PCP Nurse Practitioner Family; Referring Provider Nurse Practitioner Family; Visit Provider Nurse Practitioner Family
DX: E87.6 Hypokalemia (principal)
CPT/HCPCS: 84132

== ENCOUNTER 2021-07-24 21:51 | Emergency (ER) | payer MEDICARE, SELFPAY ==
[2021-07-24 21:53] VITALS: BP 140/105; PULSE 82; RESP 16; TEMP 36.6; O2SAT 96; BMI 22.5
--- NOTE | 2021-07-24 22:18 | EKG12_ITS ---
Test Reason : CP Blood Pressure : / mmHG Vent. Rate : 064 BPM Atrial Rate : 064 BPM P-R Int : 158 ms QRS Dur : 086 ms QT Int : 398 ms P-R-T Axes : 065 024 036 degrees QTc Int : 410 ms Normal sinus rhythm with sinus arrhythmia Septal infarct , age undetermined Abnormal ECG Confirmed by CELENA NEWMAN, KEZIA ([id number]), art editor WARREN CORREA ([id number]) on 07/26/2021 11:43:47 AM Referred By: KEVIN Confirmed By:KEZIA DALLAS MD
--- NOTE | 2021-07-24 22:19 | EX.ED.DYSGE1 ---
HPI History of Present Illness Chief Complaint: Chest Pain Informant: patient Onset/Context/Timing Onset: Days (3 days) Context: Gradual Onset Timing: Intermittent Current Severity: Gone Maximum Severity: Mild Narrative Narrative: Patient presents with a 3-day history of intermittent chest pressure. She was recently in the emergency room secondary to low potassium. She got potassium here and discharged with potassium tabs at home. She had repeat potassium level drawn today but did not know the results. She denies shortness of breath. Chest pressure does not necessarily come on with exertion. She denies typical reflux symptoms. [facility] Medical History (Updated 07/24/21 @ 23:[address] Priscilla Perez MD) Atherosclerosis of coronary artery of [place] heart without angina pectoris Benign essential hypertension Collagenous colitis Depression Dyslipidemia Nonrheumatic mitral (valve) prolapse Home Medications omeprazole 20 mg PO BID 03/20/14 [History Last Taken 07/11/20] clonazepam 0.5 mg PO TID PRN PRN 09/05/14 [History Last Taken 09/04/14 21:00] bupropion HCl 300 mg PO DAILY 08/10/16 [History Last Taken Unknown] simvastatin 20 mg tablet 20 mg PO QHS 02/18/19 [History Last Taken Unknown] quinapril 20 mg tablet 20 mg PO DAILY tab 07/05/20 [History Last Taken 07/11/20] sertraline 100 mg tablet 100 mg PO DAILY tab 07/05/20 [History Last Taken Unknown] acetaminophen 650 mg PO Q6H PRN PRN tab 07/15/20 [Rx Last Taken Unknown] amlodipine 5 mg tablet 5 mg PO DAILY #90 tab 12/01/20 [Rx Last Taken Unknown] hydrochlorothiazide 12.5 mg tablet 12.5 mg PO DAILY #90 tab 12/06/20 [Rx Last Taken Unknown] carvedilol 3.125 mg tablet 3.125 mg PO BID #180 tab 03/02/21 [Rx Last Taken Unknown] hydroxychloroquine [Plaquenil] 300 mg PO DAILY 07/19/21 [History Last Taken Unknown] potassium chloride 10 meq PO DAILY #5 cap 07/19/21 [Rx Last Taken Unknown] Allergy/AdvReac Type Severity Reaction Status Date / Time atorvastatin calcium Allergy Unknown Verified 07/24/21 21:55 [From Lipitor] Beta-Blockers Allergy Unknown Verified 07/24/21 21:55 (Beta-Adrenergic Bloc cefaclor [From Ceclor] Allergy Unknown Verified 07/24/21 21:55 Sulfa (Sulfonamide Allergy Hives Verified 07/24/21 21:55 Antibiotics) Tetracyclines Allergy Unknown Verified 07/24/21 21:55 oxycodone AdvReac NEEDS Verified 07/24/21 21:55 FOLLOW-UP propoxyphene [From Darvon] AdvReac Nausea Verified 07/24/21 21:55 Family History Father CAD (coronary artery disease) Myocardial infarction Hypertension Mother Hypertension Myocardial infarction CAD (coronary artery disease) Surgical History H/O arthroscopic knee surgery History of cataract surgery History of hysterectomy History of left heart catheterization (11/01/14) History of tonsillectomy History of tubal ligation Social History Smoking Status: Former smoker how long ago did patient quit smokin + years ago alcohol intake: current alcohol intake frequency: holidays/special occasions only Alcohol type: wine substance use type: does not use caffeine: Yes Type: carbonated beverages Number of servings: 6 ROS ROS ED Constitutional Constitutional ED: Denies chills or fever(s) Eyes Eyes: Denies change in vision ENT ENT ED: Denies sore throat Cardiovascular Cardiovascular: Reports chest pain Respiratory/Chest Respiratory/Chest: Denies cough or dyspnea Gastrointestinal Gastrointestinal: Denies abdominal pain, diarrhea, nausea or vomiting Genitourinary Genitourinary ED: Reports dysuria Musculoskeletal Musculoskeletal: Denies back pain Integumentary Denies rash Neurologic Neurologic: Denies headache(s) or weakness Allergic/Immunologic Allergic/Immunologic ED: Denies urticaria EXAM Physical Exam Const Vital Signs: 07/24/21 21:53 07/24/21 22:26 07/24/21 22:33 Temperature 97.9 F Temperature Source Temporal Pulse Rate 82 Respiratory Rate 16 Respiratory Effort Normal Respiratory Pattern Normal Blood Pressure 140/105 H Blood Pressure Mean 116 Pulse Ox 96 96 Oxygen Delivery Method Room Air Room Air Positive well nourished and well developed General Appearance ED: well developed HEENT Reports normocephalic and head/scalp atraumatic Eyes PERRL and EOMs intact bilaterally Neck supple Chest Wall inspection of chest normal and palpation of chest normal Resp normal respiratory effort and clear to auscultation bilaterally Cardio regular rate and regular rhythm GI normal to inspection, nondistended, normoactive bowel sounds Palpation: soft Extremity normal to inspection Neuro oriented x3 and no sensory deficits noted Sensorium / Orientation: alert Motor Exam: strength 5/5 throughout Psych mental status grossly normal Skin no rashes or lesions noted MDM MDM MDM Narrative Medical decision making narrative: Patient's potassium from earlier today was 3.6. Labs are repeated tonight. EKG and chest x-ray also obtained. She did receive aspirin with squad. Lab Data Attestation: I reviewed the patient's lab results. Labs: Laboratory Results - last 24 hr 07/24/21 07/24/21 22:13 22:13 WBC 6.6 RBC 3.70 L Hgb 11.1 L Hct 34.0 L MCV 91.9 MCH 30.0 MCHC 32.6 RDW Std Deviation 40.7 RDW Coeff of Hiwot 12.0 Plt Count 204 MPV 11.2 Immature Gran % (Auto) 0.200 Neut % (Auto) 56.9 Lymph % (Auto) 30.5 Bath % (Auto) 8.8 Eos % (Auto) 3.0 Baso % (Auto) 0.6 Absolute Neuts (auto) 3.7 Absolute Lymphs (auto) 2.00 Nucleated RBC % 0 Sodium 137 Potassium 3.6 Chloride 100 Carbon Dioxide 28.0 Anion Gap 9 BUN 17 Creatinine 1.16 H Estim Creat Clear Calc 38.87 Est GFR (MDRD) Af Amer 58 L Est GFR (MDRD) Non-Af 48 L BUN/Creatinine Ratio 14.7 Glucose 96 Calcium 9.3 Troponin I High Sens 11 Radiography Chest X-Ray - ED: 1 View, Read by ED Physician, Normal, Heart, Lungs and Mediastinum EKG Initial EKG: Attestation: I personally reviewed and interpreted this EKG as follows: Interpretation: Sinus Rhythm (Sinus at 64 with no acute ischemia.) Treatment and Re-Evaluation Comments:: Repeat evaluation patient's resting comfortably. Test results discussed with her. Potassium today is confirmed at 3.6. Troponin is negative with 3 days of intermittent pain. She describes a pressure sensation that does not necessarily worsen with exertion. There is no shortness of breath. Patient monitor her symptoms and follow-up with her primary care physician. Encouraged to return for continued symptoms or any worsening concerns. Patient voices understanding and agreement with the plan. Discharge Plan Triage Chief Complaint: Chest Pain ED Provider: Priscilla Perez Dx/Rx/DC Orders Clinical Impression: Atypical chest pain Instructions: ED Chest Pain, Uncertain Cause Prescriptions: No Action simvastatin 20 mg tablet 20 mg PO QHS RF: 0 quinapril 20 mg tablet 20 mg PO DAILY RF: 0 sertraline 100 mg tablet 100 mg PO DAILY RF: 0 omeprazole 20 MG capsule 20 mg PO BID RF: 0 clonazepam 0.5 MG tablet 0.5 mg PO TID PRN PRN (Reason: Anxiety) RF: 0 bupropion HCl 300 MG tablet extended release 24 hr 300 mg PO DAILY RF: 0 acetaminophen 325 MG tablet 650 mg PO Q6H PRN PRN (Reason: Pain Score 1-10/Temp > 100.7 F) RF: 0 hydroxychloroquine [Plaquenil] 200 mg Tablet 300 mg PO DAILY RF: 0 potassium chloride 10 mEq capsule, extended release 10 meq PO DAILY Qty: 5 RF: 0 amlodipine 5 mg tablet 5 mg PO DAILY Qty: 90 RF: 3 hydrochlorothiazide 12.5 mg tablet 12.5 mg PO DAILY Qty: 90 RF: 3 carvedilol 3.125 mg tablet 3.125 mg PO BID Qty: 180 RF: 3 Primary Care Provider: Narayan Gilbert NP Referrals: Narayan Gilbert NP, WOUND/OSTOMY NURSE-C [Primary Care Provider] - 3-5 Days Disposition Disposition: Home, Self Care
[2021-07-24 22:26] LABS: Absolute Neutrophil Count 3.7 X10^3/uL (2.0-7.7); Basophil# 0.04 X10^3/uL; Basophil% 0.6 % (0-1); Hemoglobin 11.1 g/dL (12.0-15.0); Lymphocyte % 30.5 % (19-41); Mean Corp Hgb Conc 32.6 g/dL (32-36); Mean Corpuscular Volume 91.9 fL (81-99); Mean Platelet Vol. 11.2 fl (6.2-12.0); Monocyte# 0.58 X10^3/uL; Monocyte% 8.8 % (0-10); NRBC Flagged by Analyzer 0 % (0-5); Neutrophil # 3.73 X10^3/uL (2.7-7.7); Neutrophil % 56.9 % (47-70); Platelet Count 204 K/mm3 (150-450); RBC Distribution Width SD 40.7 fl (35.1-43.9); White Blood Count 6.6 K/mm3 (4.4-11.0)
[2021-07-24 22:33] VITALS: O2SAT 96
[2021-07-24 22:46] LABS: Anion Gap 9 (5-15); BUN 17 mg/dL (7-18); BUN/Creat Ratio 14.7 RATIO (10-20); Calcium,Total 9.3 mg/dL (8.5-10.1); Chloride 100 mmol/L (98-107); Creatinine, Serum 1.16 mg/dL (0.55-1.02); EST Glomerular Filtration Rate 48 mL/min (>60); Est Glom Filt Rate - Afr Amer 58 mL/min (>60); Estimated Creatinine Clearance 38.87 ml/min; Glucose 96 mg/dL (74-106); Potassium 3.6 mmol/L (3.5-5.1); Sodium Level 137 mmol/L (136-145); Troponin-I HS 11 pg/mL (3.0-54.0)
--- NOTE | 2021-07-24 23:05 | RAD_ITS ---
STUDY: X-RAY CHEST REASON FOR EXAM: Female, 80 years old. Chest pain TECHNIQUE: Portable, upright, AP chest radiograph COMPARISON: 06/22/2020 FINDINGS: The lungs are clear and expanded. There is no demonstrated pleural abnormality. Normal size heart. Normal mediastinum and meño. Normal visualized pulmonary arteries. Normal visualized aortic arch and descending thoracic aorta. Normal visualized thoracic spine. Normal visualized ribs, clavicles, and shoulders. There is no demonstrated abnormality of the visualized soft tissue structures of the upper abdomen. RAD/Chest 1 View (Portable) IMPRESSION: No acute abnormal cardiopulmonary finding. Electronically Signed: Leo Rolle MD at 23:28 EDT Tel , Service support ,
[2021-07-24 23:43] VITALS: BP 132/57; PULSE 51; RESP 16; O2SAT 96
== END 2021-07-24 23:46 | disposition home or self-care (01) ==
PROVIDERS: Emergency Provider Emergency Medicine; PCP Nurse Practitioner Family
DX: R07.89 Other chest pain (principal); I25.10 Atherosclerotic heart disease of native coronary artery without angina pectoris; E87.6 Hypokalemia; Z87.891 Personal history of nicotine dependence
CPT/HCPCS: 71045; 80048; 84132; 84484; 85025; 93005; 99285; A4216

== ENCOUNTER → 2021-08-08 06:35 | Outpatient (CLI) | payer MEDICARE, SELFPAY ==
--- NOTE | 2021-08-08 17:58 | STRESSREP ---
Stress Test Report Pharmacologic myocardial perfusion stress test. 80-year-old lady with a history of chest pain. Stress protocol: Resting EKG demonstrates normal sinus rhythm with a rate of 61 bpm normal intervals are noted resting blood pressure is 142/80 mmHg. 0.4 mg of regadenoson was infused per usual protocol. The maximum heart rate attained was 83 bpm which was 58% of max infected heart rate the maximum workload was 1 metabolic equivalent. At rest there were no ST or T wave changes noted to suggest abnormal flow reserve and at peak infusion nonspecific ST changes were noted with did not meet the criteria for ischemia. The final blood pressure was 134/70 mmHg. Myocardial perfusion protocol. 11.7 mCi of technetium 99m sestamibi was injected at rest. 0.4 mg of regadenoson was infused per usual protocol. At peak infusion 30.8 mCi of technetium 99m sestamibi was injected at rest. Stress and rest images were reconstructed and compared in the short axis vertical long horizontal long axis. Gated images were also obtained to Perfusion SPECT analysis: Review of the stress images demonstrate normal uptake of tracer noted in all areas of the myocardium. The resting images similarly demonstrate normal uptake of tracer noted in all areas of the myocardium. No areas of reversibility are noted to suggest ischemia and no previous infarct is noted. Gated SPECT analysis: The gated ejection fraction is 75%. Conclusion: Normal pharmacologic myocardial perfusion stress test. Preserved ejection fraction.
== END ==
PROVIDERS: PCP Nurse Practitioner Family; Referring Provider Physician Assistant Medical; Visit Provider Physician Assistant Medical
DX: R07.9 Chest pain, unspecified (principal)
CPT/HCPCS: 78452; 93017; A9500; A4216; J2785

== ENCOUNTER 2021-11-01 09:18 | Outpatient (CLI) | payer MEDICARE, SELFPAY ==
[2021-11-01 10:14] LABS: Absolute Lymphocyte Count 1.82 X10^3/uL (0.83-4.51); Absolute Neutrophil Count 5.6 X10^3/uL (2.0-7.7); Basophil# 0.06 X10^3/uL; Basophil% 0.7 % (0-1); Eosinophil# 0.16 X10^3/uL; Hematocrit 35.3 % (37-47); Hemoglobin 11.6 g/dL (12.0-15.0); Lymphocyte # 1.82 X10^3/ul (0.83-4.51); Lymphocyte % 22.3 % (19-41); Mean Corp Hgb Conc 32.9 g/dL (32-36); Mean Corpuscular Hgb 29.8 pg (27.0-32.0); Mean Corpuscular Volume 90.7 fL (81-99); Monocyte# 0.53 X10^3/uL; Monocyte% 6.5 % (0-10); NRBC Flagged by Analyzer 0 % (0-5); Neutrophil # 5.56 X10^3/uL (2.7-7.7); Neutrophil % 68.3 % (47-70); Platelet Count 222 K/mm3 (150-450); RBC Distribution Width CV 12.6 % (11.6-14.6); RBC Distribution Width SD 41.1 fl (35.1-43.9); Red Blood Count 3.89 M/mm3 (4.2-5.4); White Blood Count 8.2 K/mm3 (4.4-11.0)
[2021-11-01 10:47] LABS: AST(SGOT) 12 U/L (15-37); Alanine Aminotransfer ALT/SGPT 21 U/L (13-56); Albumin, Serum 3.4 g/dL (3.2-5.0); Alkaline Phosphatase 97 U/L (45-117); Anion Gap 4 (5-15); BUN 21 mg/dL (7-18); BUN/Creat Ratio 18.9 RATIO (10-20); Calcium,Total 9.7 mg/dL (8.5-10.1); Chloride 100 mmol/L (98-107); Creatinine, Serum 1.11 mg/dL (0.55-1.02); EST Glomerular Filtration Rate 50 mL/min (>60); Est Glom Filt Rate - Afr Amer 61 mL/min (>60); Globulin 3.3 g/dL (2.2-4.2); Glucose 90 mg/dL (74-106); Protein, Total 6.7 g/dL (6.4-8.2); Sodium Level 137 mmol/L (136-145)
== END 2021-11-01 23:59 | disposition short-term general hospital (02) ==
LOC: MTLAB 09:20
PROVIDERS: PCP Nurse Practitioner Family; Referring Provider Internal Medicine Rheumatology; Visit Provider Internal Medicine Rheumatology
DX: M06.4 Inflammatory polyarthropathy (principal); K51.90 Ulcerative colitis, unspecified, without complications; Z79.899 Other long term (current) drug therapy; R76.8 Other specified abnormal immunological findings in serum; M19.041 Primary osteoarthritis, right hand; M17.0 Bilateral primary osteoarthritis of knee; I25.10 Atherosclerotic heart disease of native coronary artery without angina pectoris; I10 Essential (primary) hypertension; K21.9 Gastro-esophageal reflux disease without esophagitis; E78.5 Hyperlipidemia, unspecified; F41.9 Anxiety disorder, unspecified
CPT/HCPCS: 36415; 80053; 85025

== ENCOUNTER 2021-11-28 10:11 | Outpatient (CLI) | payer MEDICARE, SELFPAY ==
[2021-11-28 12:45] LABS: AST(SGOT) 11 U/L (15-37); Alanine Aminotransfer ALT/SGPT 17 U/L (13-56); Albumin, Serum 3.3 g/dL (3.2-5.0); Alkaline Phosphatase 105 U/L (45-117); Anion Gap 4 (5-15); BUN 19 mg/dL (7-18); BUN/Creat Ratio 17.9 RATIO (10-20); Calcium,Total 9.7 mg/dL (8.5-10.1); Chloride 108 mmol/L (98-107); Creatinine, Serum 1.06 mg/dL (0.55-1.02); EST Glomerular Filtration Rate 53 mL/min (>60); Est Glom Filt Rate - Afr Amer 64 mL/min (>60); Globulin 3.4 g/dL (2.2-4.2); Glucose 111 mg/dL (74-106); Potassium 3.6 mmol/L (3.5-5.1); Protein, Total 6.7 g/dL (6.4-8.2); Sodium Level 139 mmol/L (136-145)
== END 2021-11-28 23:59 | disposition short-term general hospital (02) ==
LOC: MTLAB 10:12
PROVIDERS: PCP Nurse Practitioner Family; Referring Provider Internal Medicine Rheumatology; Visit Provider Internal Medicine Rheumatology
DX: M06.4 Inflammatory polyarthropathy (principal); K51.90 Ulcerative colitis, unspecified, without complications; R76.8 Other specified abnormal immunological findings in serum; M19.041 Primary osteoarthritis, right hand; M17.0 Bilateral primary osteoarthritis of knee; I25.10 Atherosclerotic heart disease of native coronary artery without angina pectoris; I10 Essential (primary) hypertension; K21.9 Gastro-esophageal reflux disease without esophagitis; E78.5 Hyperlipidemia, unspecified; F41.9 Anxiety disorder, unspecified; Z79.899 Other long term (current) drug therapy
CPT/HCPCS: 36415; 80053

== ENCOUNTER 2022-01-29 08:19 | Outpatient (CLI) | payer MEDICARE, SELFPAY ==
[2022-01-29 10:14] LABS: Absolute Lymphocyte Count 1.97 X10^3/uL (0.83-4.51); Absolute Neutrophil Count 1.9 X10^3/uL (2.0-7.7); Basophil# 0.01 X10^3/uL; Basophil% 0.2 % (0-1); Eosinophil# 0.09 X10^3/uL; Eosinophils% 2.1 % (0-5); Hematocrit 38.5 % (37-47); Hemoglobin 12.6 g/dL (12.0-15.0); Lymphocyte # 1.97 X10^3/ul (0.83-4.51); Lymphocyte % 45.3 % (19-41); Mean Corp Hgb Conc 32.7 g/dL (32-36); Mean Corpuscular Hgb 29.9 pg (27.0-32.0); Mean Corpuscular Volume 91.4 fL (81-99); Mean Platelet Vol. 10.5 fl (6.2-12.0); Monocyte# 0.41 X10^3/uL; Monocyte% 9.4 % (0-10); NRBC Flagged by Analyzer 0 % (0-5); Neutrophil # 1.86 X10^3/uL (2.7-7.7); Neutrophil % 42.8 % (47-70); Platelet Count 205 K/mm3 (150-450); RBC Distribution Width CV 13.1 % (11.6-14.6); RBC Distribution Width SD 43.8 fl (35.1-43.9); Red Blood Count 4.21 M/mm3 (4.2-5.4); White Blood Count 4.4 K/mm3 (4.4-11.0)
[2022-01-29 10:30] LABS: ALB/GLOB Ratio 0.9 RATIO (0.9-2.4); AST(SGOT) 20 U/L (15-37); Alanine Aminotransfer ALT/SGPT 23 U/L (13-56); Albumin, Serum 3.3 g/dL (3.2-5.0); Alkaline Phosphatase 126 U/L (45-117); Anion Gap 7 (5-15); BUN 17 mg/dL (7-18); BUN/Creat Ratio 16.2 RATIO (10-20); Calcium,Total 9.8 mg/dL (8.5-10.1); Chloride 102 mmol/L (98-107); Creatinine, Serum 1.05 mg/dL (0.55-1.02); EST Glomerular Filtration Rate 54 mL/min (>60); Est Glom Filt Rate - Afr Amer 65 mL/min (>60); Globulin 3.6 g/dL (2.2-4.2); Glucose 76 mg/dL (74-106); Potassium 3.3 mmol/L (3.5-5.1); Protein, Total 6.9 g/dL (6.4-8.2); Sodium Level 136 mmol/L (136-145)
== END 2022-01-29 23:59 | disposition home or self-care (01) ==
LOC: MTLAB 08:20
PROVIDERS: PCP Nurse Practitioner Family; Referring Provider Internal Medicine Rheumatology; Visit Provider Internal Medicine Rheumatology
DX: M06.4 Inflammatory polyarthropathy (principal); K51.90 Ulcerative colitis, unspecified, without complications; R76.8 Other specified abnormal immunological findings in serum; M17.0 Bilateral primary osteoarthritis of knee; I25.10 Atherosclerotic heart disease of native coronary artery without angina pectoris; I10 Essential (primary) hypertension; K21.9 Gastro-esophageal reflux disease without esophagitis; E78.5 Hyperlipidemia, unspecified; F41.9 Anxiety disorder, unspecified; Z79.899 Other long term (current) drug therapy
CPT/HCPCS: 36415; 80053; 85025

== ENCOUNTER → 2022-02-28 | Outpatient (CLI) | payer MEDICARE, SELFPAY ==
[2022-02-28 12:20] LABS: Absolute Lymphocyte Count 1.16 X10^3/uL (0.83-4.51); Absolute Neutrophil Count 4.4 X10^3/uL (2.0-7.7); Basophil# 0.05 X10^3/uL; Basophil% 0.8 % (0-1); Eosinophil# 0.18 X10^3/uL; Eosinophils% 2.9 % (0-5); Hematocrit 36.9 % (37-47); Lymphocyte # 1.16 X10^3/ul (0.83-4.51); Lymphocyte % 18.6 % (19-41); Mean Corp Hgb Conc 32.5 g/dL (32-36); Mean Corpuscular Hgb 30.4 pg (27.0-32.0); Mean Corpuscular Volume 93.4 fL (81-99); Mean Platelet Vol. 10.8 fl (6.2-12.0); Monocyte# 0.44 X10^3/uL; Monocyte% 7.1 % (0-10); NRBC Flagged by Analyzer 0 % (0-5); Neutrophil # 4.39 X10^3/uL (2.7-7.7); Neutrophil % 70.4 % (47-70); Platelet Count 223 K/mm3 (150-450); RBC Distribution Width CV 13.2 % (11.6-14.6); RBC Distribution Width SD 45.3 fl (35.1-43.9); Red Blood Count 3.95 M/mm3 (4.2-5.4); White Blood Count 6.2 K/mm3 (4.4-11.0)
[2022-02-28 13:04] LABS: ALB/GLOB Ratio 0.9 RATIO (0.9-2.4); AST(SGOT) 18 U/L (15-37); Alanine Aminotransfer ALT/SGPT 22 U/L (13-56); Albumin, Serum 3.3 g/dL (3.2-5.0); Alkaline Phosphatase 106 U/L (45-117); Anion Gap 6 (5-15); BUN 17 mg/dL (7-18); BUN/Creat Ratio 17.3 RATIO (10-20); Calcium,Total 9.8 mg/dL (8.5-10.1); Chloride 108 mmol/L (98-107); Creatinine, Serum 0.98 mg/dL (0.55-1.02); EST Glomerular Filtration Rate 58 mL/min (>60); Est Glom Filt Rate - Afr Amer 70 mL/min (>60); Globulin 3.5 g/dL (2.2-4.2); Glucose 102 mg/dL (74-106); Protein, Total 6.8 g/dL (6.4-8.2); Sodium Level 141 mmol/L (136-145)
== END | disposition home or self-care (01) ==
LOC: MTLAB 10:46
PROVIDERS: PCP Nurse Practitioner Family; Referring Provider Internal Medicine Rheumatology; Visit Provider Internal Medicine Rheumatology
DX: M06.4 Inflammatory polyarthropathy (principal); K51.90 Ulcerative colitis, unspecified, without complications; R76.8 Other specified abnormal immunological findings in serum; I25.10 Atherosclerotic heart disease of native coronary artery without angina pectoris; I10 Essential (primary) hypertension; K21.9 Gastro-esophageal reflux disease without esophagitis; E78.5 Hyperlipidemia, unspecified; Z79.899 Other long term (current) drug therapy
CPT/HCPCS: 36415; 80053; 85025

== ENCOUNTER → 2022-03-28 | Outpatient (CLI) | payer MEDICARE, SELFPAY ==
[2022-03-28 15:17] LABS: Absolute Lymphocyte Count 1.45 X10^3/uL (0.83-4.51); Absolute Neutrophil Count 9.2 X10^3/uL (2.0-7.7); Basophil# 0.02 X10^3/uL; Basophil% 0.2 % (0-1); Eosinophil# 0.09 X10^3/uL; Eosinophils% 0.8 % (0-5); Hematocrit 37.1 % (37-47); Hemoglobin 12.5 g/dL (12.0-15.0); Lymphocyte # 1.45 X10^3/ul (0.83-4.51); Lymphocyte % 12.8 % (19-41); Mean Corp Hgb Conc 33.7 g/dL (32-36); Mean Corpuscular Hgb 31.3 pg (27.0-32.0); Mean Corpuscular Volume 92.8 fL (81-99); Monocyte# 0.51 X10^3/uL; Monocyte% 4.5 % (0-10); NRBC Flagged by Analyzer 0 % (0-5); Neutrophil % 81.2 % (47-70); Platelet Count 234 K/mm3 (150-450); RBC Distribution Width CV 13.5 % (11.6-14.6); RBC Distribution Width SD 45.5 fl (35.1-43.9); White Blood Count 11.3 K/mm3 (4.4-11.0)
[2022-03-28 15:36] LABS: AST(SGOT) 23 U/L (15-37); Alanine Aminotransfer ALT/SGPT 27 U/L (13-56); Albumin, Serum 3.6 g/dL (3.2-5.0); Alkaline Phosphatase 111 U/L (45-117); Anion Gap 7 (5-15); BUN 18 mg/dL (7-18); BUN/Creat Ratio 16.5 RATIO (10-20); Calcium,Total 9.9 mg/dL (8.5-10.1); Chloride 106 mmol/L (98-107); Creatinine, Serum 1.09 mg/dL (0.55-1.02); EST Glomerular Filtration Rate 51 mL/min (>60); Est Glom Filt Rate - Afr Amer 62 mL/min (>60); Globulin 3.6 g/dL (2.2-4.2); Glucose 133 mg/dL (74-106); Potassium 3.3 mmol/L (3.5-5.1); Protein, Total 7.2 g/dL (6.4-8.2); Sodium Level 139 mmol/L (136-145)
== END | disposition home or self-care (01) ==
LOC: MTLAB 13:24
PROVIDERS: PCP Nurse Practitioner Family; Referring Provider Internal Medicine Rheumatology; Visit Provider Internal Medicine Rheumatology
DX: M06.4 Inflammatory polyarthropathy (principal); K51.90 Ulcerative colitis, unspecified, without complications; R76.8 Other specified abnormal immunological findings in serum; M17.0 Bilateral primary osteoarthritis of knee; I25.10 Atherosclerotic heart disease of native coronary artery without angina pectoris; I10 Essential (primary) hypertension; K21.9 Gastro-esophageal reflux disease without esophagitis; E78.5 Hyperlipidemia, unspecified; F41.9 Anxiety disorder, unspecified; Z79.899 Other long term (current) drug therapy
CPT/HCPCS: 36415; 80053; 85025

== ENCOUNTER → 2022-04-25 | Outpatient (CLI) | payer MEDICARE, SELFPAY ==
[2022-04-25 15:09] LABS: Absolute Lymphocyte Count 1.36 X10^3/uL (0.83-4.51); Absolute Neutrophil Count 3.7 X10^3/uL (2.0-7.7); Basophil# 0.03 X10^3/uL; Basophil% 0.5 % (0-1); Eosinophil# 0.13 X10^3/uL; Eosinophils% 2.3 % (0-5); Hemoglobin 11.7 g/dL (12.0-15.0); Lymphocyte # 1.36 X10^3/ul (0.83-4.51); Lymphocyte % 24.2 % (19-41); Mean Corp Hgb Conc 32.5 g/dL (32-36); Mean Corpuscular Volume 95.2 fL (81-99); Mean Platelet Vol. 11.2 fl (6.2-12.0); Monocyte# 0.43 X10^3/uL; Monocyte% 7.7 % (0-10); NRBC Flagged by Analyzer 0 % (0-5); Neutrophil # 3.65 X10^3/uL (2.7-7.7); Neutrophil % 65.1 % (47-70); Platelet Count 226 K/mm3 (150-450); RBC Distribution Width CV 13.9 % (11.6-14.6); RBC Distribution Width SD 48.3 fl (35.1-43.9); Red Blood Count 3.78 M/mm3 (4.2-5.4); White Blood Count 5.6 K/mm3 (4.4-11.0)
[2022-04-25 15:41] LABS: ALB/GLOB Ratio 1.1 RATIO (0.9-2.4); AST(SGOT) 27 U/L (15-37); Alanine Aminotransfer ALT/SGPT 30 U/L (13-56); Albumin, Serum 3.5 g/dL (3.2-5.0); Alkaline Phosphatase 142 U/L (45-117); Anion Gap 4 (5-15); BUN 19 mg/dL (7-18); BUN/Creat Ratio 17.3 RATIO (10-20); Calcium,Total 9.8 mg/dL (8.5-10.1); Chloride 108 mmol/L (98-107); EST Glomerular Filtration Rate 51 mL/min (>60); Est Glom Filt Rate - Afr Amer 62 mL/min (>60); Globulin 3.3 g/dL (2.2-4.2); Glucose 100 mg/dL (74-106); Protein, Total 6.8 g/dL (6.4-8.2); Sodium Level 141 mmol/L (136-145)
== END | disposition home or self-care (01) ==
LOC: MTLAB 11:51
PROVIDERS: PCP Nurse Practitioner Family; Referring Provider Internal Medicine Rheumatology; Visit Provider Internal Medicine Rheumatology
DX: M06.4 Inflammatory polyarthropathy (principal); N17.0 Acute kidney failure with tubular necrosis; K51.90 Ulcerative colitis, unspecified, without complications; R76.8 Other specified abnormal immunological findings in serum; I25.10 Atherosclerotic heart disease of native coronary artery without angina pectoris; I10 Essential (primary) hypertension; K21.9 Gastro-esophageal reflux disease without esophagitis; E78.5 Hyperlipidemia, unspecified; F41.9 Anxiety disorder, unspecified; Z79.899 Other long term (current) drug therapy
CPT/HCPCS: 36415; 80053; 85025

== ENCOUNTER 2022-05-21 15:15 | Emergency (ER) | payer MEDICARE, SELFPAY ==
[2022-05-21 15:15] VITALS: BP 164/96; PULSE 61; RESP 15; TEMP 36.2; O2SAT 96; BMI 23.3
[2022-05-21 15:23] VITALS: O2SAT 96
--- NOTE | 2022-05-21 15:37 | CT_ITS ---
EXAMINATION : Head CT w/out contrast HISTORY : head injury COMPARISON : 07/13/2020. TECHNIQUE : Multiple contiguous axial images were obtained from the skull base to the vertex without intravenous contrast. A radiation dose optimization technique was used for this scan. FINDINGS : There is no evidence for acute intracranial hemorrhage, mass effect, or midline shift. There is no extra-axial fluid collection. There are periventricular white matter changes consistent with chronic microvascular ischemic disease. There is sulcal widening and ventricular enlargement consistent with cerebral atrophy. There is normal day-white differentiation, without CT evidence of acute ischemia or infarct. The skull base and calvarium are unremarkable. The orbits are unremarkable. The paranasal sinuses are clear. The mastoid air cells are well-aerated. The soft tissues are unremarkable. CT/Brain/Head without Contrast IMPRESSION: No acute intracranial abnormality. Chronic involutional and ischemic changes of the brain. Electronically Signed: Antwon Mckenzie MD at 16:20 EDT ,
--- NOTE | 2022-05-21 15:39 | EDS_ITS ---
HPI History of Present Illness Chief Complaint: Head Injury Informant: patient and EMS Narrative Narrative: 81-year-old female presenting to the emergency room post trauma day 3 from a fall. She states she tripped on the curb while going shopping. She sustained a abrasion to her left knee left elbow as well as left periorbital contusion and abrasions. She notes that the next day she developed headache and some intermittent dizziness. She gets regular headaches due to her lupus but yesterday the headache would not resolve. She supposed to see ophthalmology this afternoon have an eye exam but because of the headache and dizziness she called the ambulance. She did note some nausea but that has pretty much resolved. She states that she is not taking any antiplatelets or blood thinners. Patient notes neck pain but states that that was present before the fall. She denies any seizures. She states that she is somewhat fuzzy on the timeline. [facility] Medical History Benign essential hypertension Collagenous colitis Depression Dyslipidemia Fracture of proximal phalanx of left little finger Nonobstructive atherosclerosis of coronary artery Nonrheumatic mitral (valve) prolapse Home Medications omeprazole 20 mg capsule,delayed release 20 mg PO BID gerd/UC 03/20/14 [History Last Taken 07/11/20] clonazepam 0.5 mg tablet 0.5 mg PO TID PRN PRN Anxiety 09/05/14 [History Last Taken 09/04/14 21:00] bupropion HCl 300 mg 24 hr tablet, extended release 300 mg PO DAILY depression 08/10/16 [History Last Taken Unknown] simvastatin 20 mg tablet 20 mg PO QHS cholesterol 02/18/19 [History Last Taken Unknown] quinapril 20 mg tablet 20 mg PO DAILY 07/05/20 [History Last Taken 07/11/20] sertraline 100 mg tablet 100 mg PO DAILY 07/05/20 [History Last Taken Unknown] acetaminophen 325 mg tablet 650 mg PO Q6H PRN PRN Pain Score 1-10/Temp > 100.7 F 07/15/20 [Rx Last Taken Unknown] amlodipine 5 mg tablet 5 mg PO DAILY bp #90 tabs 11/06/21 [Rx Last Taken Unknown] carvedilol 3.125 mg tablet 3.125 mg PO BID heart #180 tabs 01/11/22 [Rx Last Taken Unknown] hydrochlorothiazide 12.5 mg tablet 12.5 mg PO Q OTHER DAY diuretic #90 tabs 02/15/22 [Rx Last Taken Unknown] prednisone 10 mg tablet 10 mg PO DAILY PRN LUPUS 02/27/22 [History Last Taken Unknown] gabapentin 100 mg capsule 100 mg PO BID 05/21/22 [History Last Taken Unknown] methotrexate sodium 2.5 mg tablet 6 tab PO QWEEK 05/21/22 [History Last Taken Unknown] Allergy/AdvReac Type Severity Reaction Status Date / Time atorvastatin calcium Allergy Unknown Verified 05/21/22 15:18 [From Lipitor] Beta-Blockers Allergy Unknown Verified 05/21/22 15:18 (Beta-Adrenergic Bloc cefaclor [From Ceclor] Allergy Unknown Verified 05/21/22 15:18 Sulfa (Sulfonamide Allergy Hives Verified 05/21/22 15:18 Antibiotics) Tetracyclines Allergy Unknown Verified 05/21/22 15:18 oxycodone AdvReac NEEDS Verified 05/21/22 15:18 FOLLOW-UP propoxyphene [From Darvon] AdvReac Nausea Verified 05/21/22 15:18 Family History Father CAD (coronary artery disease) Myocardial infarction Hypertension Mother Hypertension Myocardial infarction CAD (coronary artery disease) Surgical History H/O arthroscopic knee surgery History of cataract surgery History of hysterectomy History of left heart catheterization (11/01/14) History of tonsillectomy History of tubal ligation Social History Smoking Status: Former smoker how long ago did patient quit smokin + years ago alcohol intake: current alcohol intake frequency: holidays/special occasions only Alcohol type: wine substance use type: does not use caffeine: Yes Type: carbonated beverages Number of servings: 6 ROS ROS ED Constitutional Constitutional ED: Denies chills, fever(s) or weight loss Eyes Eyes: Denies change in vision or diplopia ENT ENT ED: Denies ear pain, rhinorrhea or sore throat Cardiovascular Cardiovascular: Denies chest pain, orthopnea, palpitations or racing heartbeat Respiratory/Chest Respiratory/Chest: Denies cough, dyspnea or orthopnea Gastrointestinal Gastrointestinal: Reports nausea; Denies abdominal pain, diarrhea or vomiting Genitourinary Genitourinary ED: Denies dysuria, hematuria or urinary frequency Musculoskeletal Musculoskeletal: Reports arthralgias, back pain, myalgias and neck pain Integumentary Denies abscess or rash Neurologic Neurologic: Reports headache(s); Denies weakness Psychiatric Psychiatric: Denies anxiety, depression, suicidal ideation or suicidal thoughts Endocrine Endocrinology: Denies polydipsia, polyphagia or polyuria Allergic/Immunologic Allergic/Immunologic ED: Denies mouth swelling, tongue swelling or urticaria EXAM Physical Exam Const Vital Signs: 05/21/22 15:15 05/21/22 15:22 05/21/22 15:23 Temperature 97.2 F L Temperature Source Oral Pulse Rate 61 Respiratory Rate 15 Respiratory Effort Normal Non-Labored Normal Non-Labored Respiratory Depth Normal Respiratory Pattern Normal Normal Blood Pressure 164/96 H Blood Pressure Mean 118 Pulse Ox 96 96 Oxygen Delivery Method Room Air Room Air Positive well nourished and well developed General Appearance ED: well developed HEENT Reports normocephalic and moist mucous membranes HEENT Narrative: Left periorbital contusion and abrasions. There is abrasions on the nose and the philtrum. No malocclusion. No dental trauma noted. Eyes PERRL and EOMs intact bilaterally General Eye ED: Yes other Other Details: There is no hyphema or subconjunctival hemorrhage. Neck full ROM, no lymphadenopathy, supple and no JVD Resp normal respiratory effort and clear to auscultation bilaterally Cardio regular rate, regular rhythm and no murmurs GI normal to inspection, nondistended, normoactive bowel sounds and non-tender Palpation: soft Back/Spine no CVA tenderness and normal ROM Extremity normal to inspection General Extremety ED: Negative for edema General Extremity: Negative for edema Neuro oriented x3 and CN's II-XII intact bilaterally Sensorium / Orientation: alert Motor Exam: strength 5/5 throughout Psych mental status grossly normal Mood & Affect: Negative for depressed or tearful Skin no rashes or lesions noted Skin Narrative: Abrasions noted left elbow face and left knee. No evidence of secondary infection Trauma: abrasion MDM MDM MDM Narrative Medical decision making narrative: CT of the brain is negative for hemorrhage or for fracture. Patient clinically has a concussion. Supportive care at home follow-up with primary care in 1 week. Radiography Diagnostic Testing: Clinical Impression(s) from Imaging Studies Brain CT 05/21/22 15:37 IMPRESSION: No acute intracranial abnormality. Chronic involutional and ischemic changes of the brain. Electronically Signed: Antwon Mckenzie MD at 16:20 EDT , Discharge Plan Triage Chief Complaint: Head Injury ED Provider: Narayan Bingham Dx/Rx/DC Orders Clinical Impression: Fall, Abrasion of face, Concussion, Contusion of face, Abrasion of knee, left Instructions: ED Concussion Prescriptions: No Action simvastatin 20 mg tablet 20 mg PO QHS quinapril 20 mg tablet 20 mg PO DAILY sertraline 100 mg tablet 100 mg PO DAILY Label Comments: take 1 tablet by mouth once daily prednisone 10 mg tablet 10 mg PO DAILY PRN (Reason: LUPUS) omeprazole 20 MG capsule 20 mg PO BID Label Comments: GERD clonazepam 0.5 MG tablet 0.5 mg PO TID PRN PRN (Reason: Anxiety) Label Comments: sleeping bupropion HCl 300 MG tablet extended release 24 hr 300 mg PO DAILY acetaminophen 325 MG tablet 650 mg PO Q6H PRN PRN (Reason: Pain Score 1-10/Temp > 100.7 F) 0RF methotrexate sodium 2.5 mg tablet 6 tab PO QWEEK Label Comments: take 6 tablets by mouth every week gabapentin 100 mg capsule 100 mg PO BID amlodipine 5 mg tablet 5 mg PO DAILY Qty: 90 3RF carvedilol 3.125 mg tablet 3.125 mg PO BID Qty: 180 3RF Rx Instructions: must administer with a meal/food hydrochlorothiazide 12.5 mg tablet 12.5 mg PO Q OTHER DAY Qty: 90 3RF Primary Care Provider: Erich Del Real Referrals: Narayan Gilbert LEAD SOFTWARE DEVELOPMENT ENGINEER, LEAD SOFTWARE DEVELOPMENT ENGINEER-C [NON-STAFF] - 1 Week
== END 2022-05-21 16:49 | disposition home or self-care (01) ==
LOC: ED 16:25
PROVIDERS: Emergency Provider Emergency Medicine; PCP Family Medicine; Visit Provider Emergency Medicine
DX: S00.81XA Abrasion of other part of head, initial encounter (principal); S06.0X0A Concussion without loss of consciousness, initial encounter; S80.212A Abrasion, left knee, initial encounter; I25.10 Atherosclerotic heart disease of native coronary artery without angina pectoris; I10 Essential (primary) hypertension; F32.A Depression, unspecified; Z79.899 Other long term (current) drug therapy; Z87.891 Personal history of nicotine dependence; W10.1XXA Fall (on)(from) sidewalk curb, initial encounter
CPT/HCPCS: 70450; 99285

== ENCOUNTER → 2022-06-01 | Outpatient (CLI) | payer MEDICARE, SELFPAY ==
[2022-06-01 12:58] LABS: AST(SGOT) 17 U/L (15-37); Alanine Aminotransfer ALT/SGPT 20 U/L (13-56); Albumin, Serum 3.3 g/dL (3.2-5.0); Alkaline Phosphatase 99 U/L (45-117); Anion Gap 2 (5-15); BUN 15 mg/dL (7-18); BUN/Creat Ratio 15.3 RATIO (10-20); Calcium,Total 9.9 mg/dL (8.5-10.1); Chloride 107 mmol/L (98-107); Creatinine, Serum 0.98 mg/dL (0.55-1.02); EST Glomerular Filtration Rate 58 mL/min (>60); Est Glom Filt Rate - Afr Amer 70 mL/min (>60); Globulin 3.4 g/dL (2.2-4.2); Glucose 99 mg/dL (74-106); Protein, Total 6.7 g/dL (6.4-8.2); Sodium Level 138 mmol/L (136-145)
== END | disposition home or self-care (01) ==
LOC: MTLAB 10:57
PROVIDERS: PCP Family Medicine; Referring Provider Internal Medicine Rheumatology; Visit Provider Internal Medicine Rheumatology
DX: M06.4 Inflammatory polyarthropathy (principal); K51.90 Ulcerative colitis, unspecified, without complications; R76.8 Other specified abnormal immunological findings in serum; M17.0 Bilateral primary osteoarthritis of knee; I25.10 Atherosclerotic heart disease of native coronary artery without angina pectoris; I10 Essential (primary) hypertension; K21.9 Gastro-esophageal reflux disease without esophagitis; E78.5 Hyperlipidemia, unspecified; F41.9 Anxiety disorder, unspecified; Z79.899 Other long term (current) drug therapy
CPT/HCPCS: 36415; 80053

== ENCOUNTER → 2022-07-25 | Outpatient (CLI) | payer MEDICARE, SELFPAY ==
[2022-07-25 15:23] LABS: Absolute Lymphocyte Count 1.18 X10^3/uL (0.83-4.51); Absolute Neutrophil Count 4.5 X10^3/uL (2.0-7.7); Basophil# 0.04 X10^3/uL; Basophil% 0.6 % (0-1); Eosinophil# 0.11 X10^3/uL; Eosinophils% 1.7 % (0-5); Hematocrit 35.4 % (37-47); Hemoglobin 11.7 g/dL (12.0-15.0); Lymphocyte # 1.18 X10^3/ul (0.83-4.51); Lymphocyte % 18.5 % (19-41); Mean Corp Hgb Conc 33.1 g/dL (32-36); Mean Corpuscular Hgb 32.7 pg (27.0-32.0); Mean Corpuscular Volume 98.9 fL (81-99); Mean Platelet Vol. 11.2 fl (6.2-12.0); Monocyte# 0.55 X10^3/uL; Monocyte% 8.6 % (0-10); NRBC Flagged by Analyzer 0 % (0-5); Neutrophil # 4.47 X10^3/uL (2.7-7.7); Neutrophil % 70.3 % (47-70); Platelet Count 209 K/mm3 (150-450); RBC Distribution Width CV 13.6 % (11.6-14.6); RBC Distribution Width SD 48.9 fl (35.1-43.9); Red Blood Count 3.58 M/mm3 (4.2-5.4); White Blood Count 6.4 K/mm3 (4.4-11.0)
[2022-07-25 15:49] LABS: ALB/GLOB Ratio 1.1 RATIO (0.9-2.4); AST(SGOT) 20 U/L (15-37); Alanine Aminotransfer ALT/SGPT 20 U/L (13-56); Albumin, Serum 3.5 g/dL (3.2-5.0); Alkaline Phosphatase 113 U/L (45-117); Anion Gap 8 (5-15); BUN 19 mg/dL (7-18); BUN/Creat Ratio 18.4 RATIO (10-20); Calcium,Total 9.7 mg/dL (8.5-10.1); Chloride 108 mmol/L (98-107); Creatinine, Serum 1.03 mg/dL (0.55-1.02); EST Glomerular Filtration Rate 55 mL/min (>60); Est Glom Filt Rate - Afr Amer 66 mL/min (>60); Globulin 3.2 g/dL (2.2-4.2); Glucose 97 mg/dL (74-106); Protein, Total 6.7 g/dL (6.4-8.2); Sodium Level 143 mmol/L (136-145)
== END | disposition home or self-care (01) ==
LOC: MTLAB 12:54
PROVIDERS: PCP Family Medicine; Referring Provider Internal Medicine Rheumatology; Visit Provider Internal Medicine Rheumatology
DX: M06.4 Inflammatory polyarthropathy (principal); K51.90 Ulcerative colitis, unspecified, without complications; R76.8 Other specified abnormal immunological findings in serum; M17.0 Bilateral primary osteoarthritis of knee; I25.10 Atherosclerotic heart disease of native coronary artery without angina pectoris; I10 Essential (primary) hypertension; K21.9 Gastro-esophageal reflux disease without esophagitis; E78.5 Hyperlipidemia, unspecified; F41.9 Anxiety disorder, unspecified; M48.02 Spinal stenosis, cervical region; Z79.899 Other long term (current) drug therapy
CPT/HCPCS: 36415; 80053; 85025

== ENCOUNTER 2022-08-13 06:31 | Day surgery (SDC) | payer MEDICARE, SELFPAY ==
[2022-08-13] VITALS (7 sets, daily range): BP systolic 164–177; BP diastolic 67–87; PULSE 61–74; RESP 16; TEMP 36.5–37; O2SAT 96–99; BMI 23.6
--- NOTE | 2022-08-13 07:10 | RAD_ITS ---
PROCEDURE: Right C3-C6 medial branch nerve block. DATE OF EXAMINATION: 08/13/2022. INDICATION: Female, 81 years old. Chronic cervical pain. FLUOROSCOPY TIME (if supplied): (13 seconds) minutes/seconds. 4 images were submitted. RAD/Cerv Spine 2 or 3 Views IMPRESSION: Intraoperative fluoroscopy provided for right C3-C6 medial nerve branch block. Electronically Signed: Rancho Simpson MD at 14:21 EDT ,
[2022-08-13] MEDS: Lactated Ringers 1,000 ML 15 ML IV (07:22)
[2022-08-13] MEDS: Bupivacaine 0.25% 30 ML Vial OPERA.SITE (08:29)
[2022-08-13] MEDS: MethylPREDNISolone Acetate 80 MG/ML Vial (08:30)
--- NOTE | 2022-08-13 10:11 | OP.PCM_ITS ---
Report of Operation Date of Procedure: 08/13/22 Pre-Operative Diagnosis: Cervical spondylosis, cervical degenerative disc disea se, cervical facet arthropathy Post-Operative Diagnosis: Cervical spondylosis, cervical degenerative disc disease, cervical facet arthropathy Surgery/Procedure Performed:: Right-sided cervical medial branch block at C3 C4-C5-C6 Type of Anesthesia: MAC Estimated Blood Loss (mL): Minimal Description of Procedure: DESCRIPTION OF PROCEDURE: History and physical of today was reviewed. Risks and benefits of the procedure were explained. The patient understood and agreed to proceed. Informed consent was obtained. IV inserted per routine protocol. The patient was taken to the operating room and placed in the prone position with a pillow positioned underneath the chest. The neck area was prepped and draped in a sterile fashion using iodine x3. Under fluoroscopy guidance on an AP view, the C3 through C6 vertebral bodies were visualized at approximately 10- degree angle, starting on the right C3 ending on the right C6 passing through C4 and C5. Using a 25-gauge 3-1/2-inch spinal needle, the needle was advanced via the skin. The tip of the needle was maneuvered and directed towards the epiphyseal junction of each corresponding vertebra. Once the tip of the needle was at the vicinity of the medial branch, the needle was pulled approximately 2 mm off the bone. After negative aspiration of blood or CSF and confirmation on AP, oblique as well as lateral view, a total of 4 mL of preservative-free 0.25% Marcaine with 80 mg of Depo-Medrol was injected in divided doses between those four levels. The needles were then removed intact. The patient experienced no sign or symptoms of intrathecal or intravascular injection. The patient experienced no paresthesia. The procedure was completed without any apparent difficulty or any complications. The patient appeared to tolerate it well. ASSESSMENT AND PLAN: This is a 81-year-old female with cervical spondylosis, cervical degenerative disc disease, cervical facet arthropathy status post right-sided cervical medial branch block at C3 to through C6, patient will continue her current medications, patient will follow in approximately 1-2 weeks for reevaluation. Complications None
== END 2022-08-13 09:53 | disposition home or self-care (01) ==
LOC: SDC 06:31 → AC 06:32
PROVIDERS: PCP Family Medicine; Referring Provider Anesthesiology Pain Medicine; Visit Provider Anesthesiology Pain Medicine
PROC: 3E0S3BZ Introduction of Anesthetic Agent into Epidural Space, Percutaneous Approach (ICD-10-PCS; CPT 62322; principal; 2022-08-13 08:05)
DX: M47.22 Other spondylosis with radiculopathy, cervical region (principal); M32.9 Systemic lupus erythematosus, unspecified; K51.90 Ulcerative colitis, unspecified, without complications; M50.30 Other cervical disc degeneration, unspecified cervical region; G89.29 Other chronic pain; I12.9 Hypertensive chronic kidney disease with stage 1 through stage 4 chronic kidney disease, or unspecified chronic kidney disease; K21.9 Gastro-esophageal reflux disease without esophagitis; E78.00 Pure hypercholesterolemia, unspecified; I25.10 Atherosclerotic heart disease of native coronary artery without angina pectoris; N18.9 Chronic kidney disease, unspecified; Z87.891 Personal history of nicotine dependence; Z79.899 Other long term (current) drug therapy; F32.A Depression, unspecified; M48.02 Spinal stenosis, cervical region; Z79.891 Long term (current) use of opiate analgesic
CPT/HCPCS: 64492; 64491; 01992; 64490; 72040; J7120

== ENCOUNTER → 2022-09-18 | Outpatient (CLI) | payer MEDICARE, SELFPAY ==
[2022-09-18 17:53] LABS: Absolute Lymphocyte Count 1.09 X10^3/uL (0.83-4.51); Absolute Neutrophil Count 5.1 X10^3/uL (2.0-7.7); Basophil# 0.03 X10^3/uL; Basophil% 0.4 % (0-1); Eosinophil# 0.08 X10^3/uL; Eosinophils% 1.2 % (0-5); Hematocrit 36.6 % (37-47); Hemoglobin 11.8 g/dL (12.0-15.0); Lymphocyte # 1.09 X10^3/ul (0.83-4.51); Lymphocyte % 15.9 % (19-41); Mean Corp Hgb Conc 32.2 g/dL (32-36); Mean Corpuscular Hgb 31.6 pg (27.0-32.0); Mean Corpuscular Volume 97.9 fL (81-99); Monocyte% 7.3 % (0-10); NRBC Flagged by Analyzer 0 % (0-5); Neutrophil # 5.14 X10^3/uL (2.7-7.7); Neutrophil % 74.9 % (47-70); Platelet Count 230 K/mm3 (150-450); RBC Distribution Width CV 13.3 % (11.6-14.6); RBC Distribution Width SD 47.7 fl (35.1-43.9); Red Blood Count 3.74 M/mm3 (4.2-5.4); White Blood Count 6.9 K/mm3 (4.4-11.0)
[2022-09-18 18:27] LABS: ALB/GLOB Ratio 1.2 RATIO (0.9-2.4); AST(SGOT) 22 U/L (15-37); Alanine Aminotransfer ALT/SGPT 22 U/L (13-56); Albumin, Serum 3.6 g/dL (3.2-5.0); Alkaline Phosphatase 120 U/L (45-117); Anion Gap 8 (5-15); BUN 20 mg/dL (7-18); Calcium,Total 9.8 mg/dL (8.5-10.1); Chloride 107 mmol/L (98-107); Creatinine, Serum 1.05 mg/dL (0.55-1.02); EST Glomerular Filtration Rate 54 mL/min (>60); Est Glom Filt Rate - Afr Amer 65 mL/min (>60); Glucose 106 mg/dL (74-106); Potassium 3.8 mmol/L (3.5-5.1); Protein, Total 6.6 g/dL (6.4-8.2); Sodium Level 142 mmol/L (136-145)
== END | disposition home or self-care (01) ==
LOC: MTLAB 14:30
PROVIDERS: PCP Family Medicine; Referring Provider Internal Medicine Rheumatology; Visit Provider Internal Medicine Rheumatology
DX: M06.4 Inflammatory polyarthropathy (principal); Z79.899 Other long term (current) drug therapy; R76.8 Other specified abnormal immunological findings in serum
CPT/HCPCS: 36415; 80053; 85025

== ENCOUNTER 2022-10-01 08:18 | Day surgery (SDC) | payer MEDICARE, SELFPAY ==
[2022-10-01] VITALS (7 sets, daily range): BP systolic 115–161; BP diastolic 67–107; PULSE 63–66; RESP 16–18; TEMP 36.9–37.2; O2SAT 96–98; BMI 23.4
[2022-10-01] MEDS: Lactated Ringers 1,000 ML 15 ML IV (09:53)
--- NOTE | 2022-10-01 11:06 | RAD_ITS ---
PROCEDURE: Right medial branch nerve block from C3 to C6 level. DATE OF EXAMINATION: 10/01/2022 INDICATION: Female, 81 years old. Chronic neck pain. FLUOROSCOPY TIME (if supplied): (14 seconds) minutes/seconds. 5 images were submitted. RAD/Cerv Spine 2 or 3 Views IMPRESSION: Intraoperative imaging provided for right C3-C6 medial nerve block. Electronically Signed: Rancho Simpson MD at 13:35 EST ,
[2022-10-01] MEDS: MethylPREDNISolone Acetate 80 MG/ML Vial (11:16)
--- NOTE | 2022-10-01 11:17 | OP.PCM_ITS ---
Report of Operation Date of Procedure: 10/01/22 Pre-Operative Diagnosis: Cervical spondylosis, cervical degenerative disc disea se, cervical facet arthropathy Post-Operative Diagnosis: Cervical spondylosis, cervical degenerative disc disease, cervical facet arthropathy Surgery/Procedure Performed:: Right-sided cervical medial branch block at C3, C4, C5, C6 Type of Anesthesia: MAC Estimated Blood Loss (mL): Minimal Description of Procedure: DESCRIPTION OF PROCEDURE: History and physical of today was reviewed. Risks and benefits of the procedure were explained. The patient understood and agreed to proceed. Informed consent was obtained. IV inserted per routine protocol. The patient was taken to the operating room and placed in the prone position with a pillow positioned underneath the chest. The neck area was prepped and draped in a sterile fashion using iodine x3. Under fluoroscopy guidance on an AP view, the C3 through C6 vertebral bodies were visualized at approximately 10- degree angle, starting on the right C3, ending on the right C6, passing through the C4 and C5. Using a 25-gauge 3-1/2-inch spinal needle, the needle was advanced via the skin. The tip of the needle was maneuvered and directed towards the epiphyseal junction of each corresponding vertebra. Once the tip of the needle was at the vicinity of the medial branch, the needle was pulled approximately 2 mm off the bone. After negative aspiration of blood or CSF and confirmation on AP, oblique as well as lateral view, a total of 4 mL of preservative-free 0.25% Marcaine with 80 mg of Depo-Medrol was injected in divided doses between those four levels. The needles were then removed intact. The patient experienced no sign or symptoms of intrathecal or intravascular i njection. The patient experienced no paresthesia. The procedure was completed without any apparent difficulty or any complications. The patient appeared to tolerate it well. ASSESSMENT AND PLAN: This is a 81-year-old female with cervical spondylosis, cervical degenerative disc disease, cervical facet arthropathy status post right cervical medial bran ch block at C3-C6, patient will continue her current medications, patient will follow in approximately 1-2 weeks for reevaluation. Complications None
== END 2022-10-01 13:29 | disposition home or self-care (01) ==
LOC: SDC 08:22 → AC 11:06
PROVIDERS: PCP Family Medicine; Referring Provider Anesthesiology Pain Medicine; Visit Provider Anesthesiology Pain Medicine
PROC: 3E0S3BZ Introduction of Anesthetic Agent into Epidural Space, Percutaneous Approach (ICD-10-PCS; CPT 62322; principal; 2022-10-01 11:05)
DX: M47.812 Spondylosis without myelopathy or radiculopathy, cervical region (principal); M32.9 Systemic lupus erythematosus, unspecified; M50.30 Other cervical disc degeneration, unspecified cervical region; I10 Essential (primary) hypertension; E78.5 Hyperlipidemia, unspecified; I25.10 Atherosclerotic heart disease of native coronary artery without angina pectoris; I34.1 Nonrheumatic mitral (valve) prolapse; F41.9 Anxiety disorder, unspecified; K21.9 Gastro-esophageal reflux disease without esophagitis; F32.9 Major depressive disorder, single episode, unspecified
CPT/HCPCS: 64491; 64490; 72040; J7120

== ENCOUNTER → 2022-11-21 | Outpatient (CLI) | payer MEDICARE, SELFPAY ==
[2022-11-21 17:39] LABS: Absolute Lymphocyte Count 1.15 X10^3/uL (0.83-4.51); Basophil# 0.04 X10^3/uL; Basophil% 0.5 % (0-1); Eosinophil# 0.06 X10^3/uL; Eosinophils% 0.8 % (0-5); Hematocrit 36.6 % (37-47); Hemoglobin 11.4 g/dL (12.0-15.0); Lymphocyte # 1.15 X10^3/ul (0.83-4.51); Lymphocyte % 14.5 % (19-41); Mean Corp Hgb Conc 31.1 g/dL (32-36); Mean Corpuscular Hgb 30.9 pg (27.0-32.0); Mean Corpuscular Volume 99.2 fL (81-99); Mean Platelet Vol. 10.3 fl (6.2-12.0); Monocyte# 0.64 X10^3/uL; Monocyte% 8.1 % (0-10); NRBC Flagged by Analyzer 0.4 % (0-5); Neutrophil # 6.01 X10^3/uL (2.7-7.7); Neutrophil % 75.8 % (47-70); Platelet Count 249 K/mm3 (150-450); RBC Distribution Width CV 13.5 % (11.6-14.6); RBC Distribution Width SD 48.6 fl (35.1-43.9); Red Blood Count 3.69 M/mm3 (4.2-5.4); White Blood Count 7.9 K/mm3 (4.4-11.0)
[2022-11-21 18:28] LABS: ALB/GLOB Ratio 0.9 RATIO (0.9-2.4); AST(SGOT) 19 U/L (15-37); Alanine Aminotransfer ALT/SGPT 21 U/L (13-56); Albumin, Serum 3.1 g/dL (3.2-5.0); Alkaline Phosphatase 113 U/L (45-117); Anion Gap 7 (5-15); BUN 16 mg/dL (7-18); BUN/Creat Ratio 16.5 RATIO (10-20); Calcium,Total 9.8 mg/dL (8.5-10.1); Chloride 105 mmol/L (98-107); Creatinine, Serum 0.97 mg/dL (0.55-1.02); EST Glomerular Filtration Rate 59 mL/min (>60); Est Glom Filt Rate - Afr Amer 71 mL/min (>60); Globulin 3.4 g/dL (2.2-4.2); Glucose 89 mg/dL (74-106); Potassium 3.6 mmol/L (3.5-5.1); Protein, Total 6.5 g/dL (6.4-8.2); Sodium Level 140 mmol/L (136-145)
== END | disposition home or self-care (01) ==
LOC: MTLAB 15:23
PROVIDERS: PCP Family Medicine; Referring Provider Internal Medicine Rheumatology; Visit Provider Internal Medicine Rheumatology
DX: M06.4 Inflammatory polyarthropathy (principal); Z79.899 Other long term (current) drug therapy
CPT/HCPCS: 36415; 80053; 85025

== ENCOUNTER → 2023-01-24 | Outpatient (CLI) | payer MEDICARE, SELFPAY ==
[2023-01-24 15:26] LABS: Absolute Lymphocyte Count 0.82 X10^3/uL (0.83-4.51); Absolute Neutrophil Count 4.7 X10^3/uL (2.0-7.7); Basophil# 0.03 X10^3/uL; Basophil% 0.5 % (0-1); Eosinophil# 0.06 X10^3/uL; Hematocrit 36.2 % (37-47); Hemoglobin 11.4 g/dL (12.0-15.0); Lymphocyte # 0.82 X10^3/ul (0.83-4.51); Lymphocyte % 13.9 % (19-41); Mean Corp Hgb Conc 31.5 g/dL (32-36); Mean Corpuscular Hgb 30.7 pg (27.0-32.0); Mean Corpuscular Volume 97.6 fL (81-99); Mean Platelet Vol. 11.2 fl (6.2-12.0); Monocyte# 0.27 X10^3/uL; Monocyte% 4.6 % (0-10); NRBC Flagged by Analyzer 0 % (0-5); Neutrophil # 4.68 X10^3/uL (2.7-7.7); Neutrophil % 79.7 % (47-70); Platelet Count 234 K/mm3 (150-450); RBC Distribution Width CV 14.3 % (11.6-14.6); RBC Distribution Width SD 50.7 fl (35.1-43.9); Red Blood Count 3.71 M/mm3 (4.2-5.4); White Blood Count 5.9 K/mm3 (4.4-11.0)
[2023-01-24 15:34] LABS: ALB/GLOB Ratio 1.1 RATIO (0.9-2.4); AST(SGOT) 15 U/L (15-37); Alanine Aminotransfer ALT/SGPT 21 U/L (13-56); Albumin, Serum 3.5 g/dL (3.2-5.0); Alkaline Phosphatase 114 U/L (45-117); Anion Gap 5 (5-15); BUN 22 mg/dL (7-18); BUN/Creat Ratio 20.4 RATIO (10-20); Calcium,Total 9.6 mg/dL (8.5-10.1); Chloride 113 mmol/L (98-107); Creatinine, Serum 1.08 mg/dL (0.55-1.02); EST Glomerular Filtration Rate 52 mL/min (>60); Est Glom Filt Rate - Afr Amer 63 mL/min (>60); Globulin 3.1 g/dL (2.2-4.2); Glucose 113 mg/dL (74-106); Potassium 3.7 mmol/L (3.5-5.1); Protein, Total 6.6 g/dL (6.4-8.2); Sodium Level 143 mmol/L (136-145)
== END | disposition home or self-care (01) ==
LOC: MTLAB 12:41
PROVIDERS: PCP Family Medicine; Referring Provider Internal Medicine Rheumatology; Visit Provider Internal Medicine Rheumatology
DX: M06.4 Inflammatory polyarthropathy (principal); Z79.899 Other long term (current) drug therapy
CPT/HCPCS: 36415; 80053; 85025

== ENCOUNTER → 2023-03-15 | Outpatient (CLI) | payer MEDICARE, SELFPAY ==
--- NOTE | 2023-03-15 07:51 | ECHOD_ITS ---
Reason For Study: NONRHEUMATIC MVP Procedure This was a 2D Doppler, Color Flow transthoracic echocardiogram. Exam performed in department. Left Ventricle Normal left ventricle. Left ventricular systolic function is normal. The estimated ejection fraction is 65 %. No regional wall motion abnormalities noted. Right Ventricle Normal RV size. Normal systolic function. Atria Normal left atrium. Normal right atrium. Mitral Valve Mild focal mitral valve calcification. Equivocal mitral valve prolapse. Tricuspid Valve Normal tricuspid valve. Aortic Valve Trisinus/trileaflet aortic valve. Pulmonic Valve Normal pulmonic valve. Great Vessels Normal aortic root. The pulmonary artery is normal size. Normal inferior vena cava. Pericardium/Pleural No pericardial effusion. MMode/2D Measurements & Calculations LVIDd: 4.1 cm IVSd: 1.2 cm Ao root diam: 3.1 cm LVIDs: 2.3 cm LVPWd: 1.1 cm RVDd: 2.8 cm FS: 42.9 % LAV(MOD-bp): 41.3 ml LVAd ap4: 17.0 cm2 LVAd ap2: 20.6 cm2 LAV(MOD-bp) Indexed: 23.1 ml/m2 LVLd ap4: 6.1 cm LVLd ap2: 6.9 cm LAV(MOD-sp2): 41.5 ml EDV(MOD-sp4): 39.3 ml EDV(MOD-sp2): 51.7 ml LAV(MOD-sp4): 41.4 ml EDV(sp4-el): 40.2 ml EDV(sp2-el): 52.8 ml LVAs ap4: 8.5 cm2 LVAs ap2: 10.5 cm2 LVLs ap4: 4.8 cm LVLs ap2: 5.7 cm ESV(MOD-sp4): 13.9 ml ESV(MOD-sp2): 17.4 ml ESV(sp4-el): 12.8 ml ESV(sp2-el): 16.4 ml EF(MOD-sp4): 64.6 % EF(MOD-sp2): 66.3 % EF(sp4-el): 68.1 % SV(MOD-sp4): 25.4 ml SV(MOD-sp2): 34.3 ml SV(sp4-el): 27.4 ml LA dimension(2D): 3.2 cm LA A4 area: 15.4 cm2 RA A4 area: 10.3 cm2 Time Measurements MV dec time: 0.30 sec Doppler Measurements & Calculations MV E max taz: 43.2 cm/sec Lat Peak E' Taz: 4.8 cm/sec Med Peak E' Taz: 5.5 cm/sec MV A max taz: 86.4 cm/sec E/E' lat: 9.0 E/E' med: 7.9 MV E/A: 0.50 MV dec slope: 150.6 cm/sec2 Ao V2 max: 132.7 cm/sec LV V1 max: 76.3 cm/sec Ao max P.0 mmHg LV V1 max P.3 mmHg Ao V2 mean: 93.9 cm/sec LV V1 mean P.5 mmHg Ao mean P.0 mmHg LV V1 mean: 59.2 cm/sec Ao V2 VTI: 25.1 cm LV V1 VTI: 18.0 cm AV (velocity ratio): 0.72 PA V2 max: 90.9 cm/sec ECHO/Echo Complete Interpretation Summary Normal left ventricle. Left ventricular systolic function is normal. The estimated ejection fraction is 65 %. Mild focal mitral valve calcification. Equivocal mitral valve prolapse. Ordering Physician: Lacy Medina Referring Physician: Giancarlo Castaneda Performed By: Vy Cota, MARCIN, RVT
== END | disposition home or self-care (01) ==
PROVIDERS: PCP Physician Assistant; Referring Provider Internal Medicine Cardiovascular Disease; Visit Provider Internal Medicine Cardiovascular Disease
DX: I34.1 Nonrheumatic mitral (valve) prolapse (principal)
CPT/HCPCS: 93306

== ENCOUNTER → 2023-03-19 | Outpatient (CLI) | payer MEDICARE, SELFPAY ==
[2023-03-19 15:21] LABS: Absolute Lymphocyte Count 1.34 X10^3/uL (0.83-4.51); Absolute Neutrophil Count 4.4 X10^3/uL (2.0-7.7); Basophil# 0.04 X10^3/uL; Basophil% 0.6 % (0-1); Eosinophil# 0.11 X10^3/uL; Eosinophils% 1.7 % (0-5); Hematocrit 36.8 % (37-47); Hemoglobin 11.9 g/dL (12.0-15.0); Lymphocyte # 1.34 X10^3/ul (0.83-4.51); Lymphocyte % 20.6 % (19-41); Mean Corp Hgb Conc 32.3 g/dL (32-36); Mean Corpuscular Hgb 31.3 pg (27.0-32.0); Mean Corpuscular Volume 96.8 fL (81-99); Mean Platelet Vol. 11.1 fl (6.2-12.0); Monocyte# 0.58 X10^3/uL; Monocyte% 8.9 % (0-10); NRBC Flagged by Analyzer 0 % (0-5); Neutrophil # 4.42 X10^3/uL (2.7-7.7); Platelet Count 230 K/mm3 (150-450); RBC Distribution Width CV 14.1 % (11.6-14.6); RBC Distribution Width SD 49.1 fl (35.1-43.9); White Blood Count 6.5 K/mm3 (4.4-11.0)
[2023-03-19 15:42] LABS: AST(SGOT) 22 U/L (15-37); Alanine Aminotransfer ALT/SGPT 19 U/L (13-56); Albumin, Serum 3.4 g/dL (3.2-5.0); Alkaline Phosphatase 115 U/L (45-117); Anion Gap 6 (5-15); BUN 16 mg/dL (7-18); BUN/Creat Ratio 16.9 RATIO (10-20); Chloride 109 mmol/L (98-107); Creatinine, Serum 0.94 mg/dL (0.55-1.02); EST Glomerular Filtration Rate 61 mL/min (>60); Est Glom Filt Rate - Afr Amer 73 mL/min (>60); Globulin 3.3 g/dL (2.2-4.2); Glucose 98 mg/dL (74-106); Potassium 3.5 mmol/L (3.5-5.1); Protein, Total 6.7 g/dL (6.4-8.2); Sodium Level 143 mmol/L (136-145)
== END | disposition home or self-care (01) ==
LOC: MTLAB 13:21
PROVIDERS: PCP Physician Assistant; Referring Provider Internal Medicine Rheumatology; Visit Provider Internal Medicine Rheumatology
DX: M06.4 Inflammatory polyarthropathy (principal); Z79.899 Other long term (current) drug therapy; R76.8 Other specified abnormal immunological findings in serum
CPT/HCPCS: 36415; 80053; 85025

== ENCOUNTER 2023-07-16 15:21 | Emergency (ER) | payer MEDICARE, SELFPAY ==
[2023-07-16 15:29] VITALS: BP 163/89; PULSE 74; RESP 18; TEMP 37; O2SAT 97
--- NOTE | 2023-07-16 18:41 | EX.ED.DYSGE1 ---
HPI History of Present Illness Chief Complaint: Lower Extremity Injury Narrative Narrative: 82-year-old female presents with left sacroiliac joint pain that she has had for the last 3 days. She states Saturday evening she thought she had a pinched nerve in her low back. She denies any red flag signs for cauda equina, no fevers or chills, no nausea or vomiting, no saddle anesthesia, no radiation down her leg. She called her primary care provider who told her to come to the emergency department to be evaluated. She denies any trauma or injury to the area. She states she has had intra-articular injections in her knee and in her arm in the past that have helped. She takes gabapentin for other issues along with Tylenol 1000 mg which is not helping her pain. She also tried heat and ice to no avail. She has pain that is worse with movement. She was having a hard time sitting, waiting to be seen in the emergency department. [facility] Medical History Anemia Anxiety Arthritis Back pain Benign essential hypertension Cancer Cardiology follow-up encounter Collagenous colitis Depression Dyslipidemia Former smoker Fracture of proximal phalanx of left little finger Gastric reflux High cholesterol History of edema History of pain when walking History of steroid therapy History of stress test Hypertension Insomnia Lupus Lupus (systemic lupus erythematosus) MDD (major depressive disorder), recurrent, in partial remission Migraine headache Nonobstructive atherosclerosis of coronary artery Nonrheumatic mitral (valve) prolapse Syncope Ulcerative colitis Wears hearing aid Home Medications omeprazole 20 mg capsule,delayed release 20 mg PO BID gerd/UC 03/20/14 [History Last Taken 10/01/22 08:30] bupropion HCl 300 mg 24 hr tablet, extended release 300 mg PO DAILY depression 08/10/16 [History Last Taken Unknown] sertraline 100 mg tablet 100 mg PO DAILY 07/05/20 [History Last Taken Unknown] prednisone 10 mg tablet 10 mg PO DAILY PRN LUPUS 02/27/22 [History Last Taken Unknown] gabapentin 100 mg capsule 100 mg PO BID 05/21/22 [History Last Taken 08/13/22] methotrexate sodium 2.5 mg tablet 6 tab PO MO 05/21/22 [History Last Taken Unknown] acetaminophen 325 mg tablet 1,000 mg PO Q8H PRN Pain 08/09/22 [History Last Taken Unknown] folic acid 1 mg tablet 1 mg PO DAILY 08/09/22 [History Last Taken Unknown] leucovorin calcium 15 mg tablet 15 mg PO TU 08/09/22 [History Last Taken Unknown] potassium chloride 10 mEq capsule,extended release 10 meq PO DAILY 08/09/22 [History Last Taken Unknown] amlodipine 5 mg tablet 5 mg PO DAILY bp #90 tabs 11/08/22 [Rx Last Taken Unknown] atorvastatin 20 mg tablet 20 mg PO DAILY 02/04/23 [History Last Taken Unknown] carvedilol 3.125 mg tablet 3.125 mg PO BID heart #180 tabs 03/13/23 [Rx Last Taken Unknown] lisinopril 20 mg tablet 20 mg PO DAILY #90 tabs 04/17/23 [Rx Last Taken Unknown] clonazepam 0.5 mg tablet 0.5 mg PO QHS #30 tabs 04/25/23 [Rx Last Taken Unknown] Allergy/AdvReac Type Severity Reaction Status Date / Time adhesive tape Allergy Rash Verified 07/16/23 15:29 aripiprazole [From Abilify] Allergy mental Verified 07/16/23 15:29 status change atorvastatin calcium Allergy Unknown Verified 02/27/23 13:29 [From Lipitor] Beta-Blockers Allergy Unknown Verified 07/16/23 15:29 (Beta-Adrenergic Bloc cefaclor [From Ceclor] Allergy Unknown Verified 07/16/23 15:29 clarithromycin [From Biaxin] Allergy unknown Verified 07/16/23 15:29 erythromycin base Allergy NEEDS Verified 07/16/23 15:29 FOLLOW-UP guaifenesin [From Entex LA] Allergy unknown Verified 07/16/23 15:29 phenylephrine [From Entex LA] Allergy unknown Verified 07/16/23 15:29 phenylpropanolamine Allergy unknown Verified 07/16/23 15:29 [From Entex LA] Sulfa (Sulfonamide Allergy Hives Verified 07/16/23 15:29 Antibiotics) Tetracyclines Allergy Unknown Verified 07/16/23 15:29 oxycodone AdvReac NEEDS Verified 07/16/23 15:29 FOLLOW-UP propoxyphene [From Darvon] AdvReac Nausea Verified 07/16/23 15:29 Family History Father CAD (coronary artery disease) Myocardial infarction Hypertension Mother Hypertension Myocardial infarction CAD (coronary artery disease) Daughter Depression Diabetes Seizures Surgical History H/O arthroscopic knee surgery History of hysterectomy History of left heart catheterization (11/01/14) History of tonsillectomy History of tubal ligation Hx of cholecystectomy Hx of colonoscopy Hx of left cataract extraction Hx of right cataract extraction Hx of right knee surgery Social History Smoking Status: Former smoker how long ago did patient quit smokin + years ago alcohol intake: current alcohol intake frequency: holidays/special occasions only Alcohol type: wine substance use type: does not use caffeine: Yes Type: carbonated beverages Number of servings: 6 ROS ROS ED ROS Narrative Constitutional: No fever, no chills. HEENT: No sore throat. No neck pain. No loss of vision. No rhinorrhea. Cardiovascular: No chest pain. No palpitations. No pedal edema. Respiratory: No cough, no shortness of breath. Abdominal: No abdominal pain. No nausea. No vomiting. Genitourinary: No dysuria. No hematuria. Musculoskeletal: No myalgias. Left sacroiliac joint pain, tender to palpation. Neurologic: No headaches. No dizziness. No lightheadedness. No saddle anesthesia, no loss of bowel or bladder. No radicular symptoms. Skin: No rash. No change in color. Psychiatric: No depression. No anxiety. EXAM Physical Exam Narrative Exam Narrative: Afebrile. Vital signs noted. HEENT: Normocephalic. Atraumatic. PERRL, EOMI. Neck soft and supple. No point tenderness or step off. Cardiovascular: Regular rate and rhythm. No murmurs, rubs, or gallops appreciated. Respiratory: No tachypnea. Lungs clear to auscultation bilaterally. Gastrointestinal: Abdomen soft, nontender, with normoactive bowel sounds. No rebound or guarding. Neurological: Awake. Alert. Nonfocal, nonlateralizing. Skin: No rash. Normal color. No pallor. Musculoskeletal: No pedal edema. Full range of motion extremities. Tenderness to palpation left sacroiliac joint. Const Vital Signs: 07/16/23 15:29 Temperature 98.6 F Temperature Source Temporal Pulse Rate 74 Respiratory Rate 18 Blood Pressure 163/89 H Blood Pressure Mean 113 Pulse Ox 97 Oxygen Delivery Method Room Air MDM MDM MDM Narrative Medical decision making narrative: I do feel she has more of a sacral ileitis. I will obtain x-rays of the pelvis to help rule out fracture. Lower in the differential would be degenerative disc disease, as she is not having any back pain or radicular symptoms. It does not radiate to her hip or down her leg. I had a lengthy discussion with the patient regarding treatment. She was offered narcotic pain medication and a one-time dose, but declined stating that oxycodone makes her hallucinate. Additionally I discussed the use of tramadol with her, which she declined as she lists multiple allergies and intolerances to medications. She has had intra articular injections of Kenalog in the past which states made other parts of her body feel better. It was decided that she should be given Kenalog 40 mg intramuscularly. I will obtain x-rays of the pelvis as stated previously. I do not feel that any laboratory work is indicated. X-rays interpreted by myself independently of the pelvis and 1 view shows no evidence of a fracture. There are mild degenerative changes of the lumbar spine. Upon repeat examination, she feels slightly improved. If this can be discharged safely home with follow-up. She will follow-up with her primary care provider for physical therapy and other methods of analgesia as needed. Disposition is discharged home in stable condition. Radiography Diagnostic Testing: Clinical Impression(s) from Imaging Studies Pelvis X-Ray 07/16/23 18:45 IMPRESSION: No evidence of displaced pelvic or hip fracture. Electronically Signed: Megan Nevarez MD at 19:14 EDT Reading Location ID and State: [id number] / Tel , Service support , Discharge Plan Triage Chief Complaint: Lower Extremity Injury ED Provider: Jun Armstrong Dx/Rx/DC Orders Clinical Impression: Sacroiliitis, Low back pain Instructions: ED Sacroiliitis Prescriptions: No Action sertraline 100 mg tablet 100 mg PO DAILY Patient Comments: take 1 tablet by mouth once daily prednisone 10 mg tablet 10 mg PO DAILY PRN (Reason: LUPUS) atorvastatin 20 mg tablet 20 mg PO DAILY omeprazole 20 MG capsule 20 mg PO BID Patient Comments: GERD bupropion HCl 300 MG tablet extended release 24 hr 300 mg PO DAILY methotrexate sodium 2.5 mg tablet 6 tab PO MO Patient Comments: take 6 tablets by mouth every week gabapentin 100 mg capsule 100 mg PO BID potassium chloride 10 mEq Capsule, Extended Release 10 meq PO DAILY leucovorin calcium 15 mg Tablet 15 mg PO TU folic acid 1 mg Tablet 1 mg PO DAILY acetaminophen 325 MG tablet 1,000 mg PO Q8H PRN (Reason: Pain) amlodipine 5 mg tablet 5 mg PO DAILY Qty: 90 3RF carvedilol 3.125 mg tablet 3.125 mg PO BID Qty: 180 3RF Rx Instructions: must administer with a meal/food lisinopril 20 mg tablet 20 mg PO DAILY Qty: 90 3RF clonazepam 0.5 mg tablet 0.5 mg PO QHS Qty: 30 2RF Primary Care Provider: Giancarlo Castaneda Referrals: Giancarlo Castaneda PA [Primary Care Provider] - 1 Day Disposition Disposition: Home, Self Care
--- NOTE | 2023-07-16 18:45 | RAD_ITS ---
INDICATION: Sacral joint pain EXAMINATION/TECHNIQUE: X-RAY - XR Pelvis 1 or 2 Views COMPARISON: 05/22/2021. FINDINGS: No acute fracture or dislocation. No destructive bone changes. Joint spaces are well-maintained. Normal alignment. Mild degenerative changes of the lower lumbar spine. Soft tissues are unremarkable. No radiopaque foreign body or soft tissue gas. RAD/Pelvis 1 or 2 Views IMPRESSION: No evidence of displaced pelvic or hip fracture. Electronically Signed: Megan Nevarez MD at 19:14 EDT Reading Location ID and State: [id number] / Tel , Service support ,
[2023-07-16] MEDS: Triamcinolone Acetonide 40 MG/ML Vial IM (18:55)
[2023-07-16 19:01] VITALS: BMI 24.0
== END 2023-07-16 19:50 | disposition home or self-care (01) ==
PROVIDERS: Emergency Provider Emergency Medicine; PCP Physician Assistant; Visit Provider Emergency Medicine
DX: M46.1 Sacroiliitis, not elsewhere classified (principal); M54.50 Low back pain, unspecified; I25.10 Atherosclerotic heart disease of native coronary artery without angina pectoris; Z87.891 Personal history of nicotine dependence
CPT/HCPCS: 72170; 96372; 99284

== ENCOUNTER 2023-08-19 16:01 | Observation (INO) | payer MEDICARE, SELFPAY ==
[2023-08-19] VITALS (7 sets, daily range): BP systolic 100–154; BP diastolic 73–101; PULSE 62–95; RESP 13–20; TEMP 35.9–36.6; O2SAT 92–98; BMI 23.9
--- NOTE | 2023-08-19 16:07 | RAD_ITS ---
STUDY: X-RAY CHEST REASON FOR EXAM: Female, 82 years old. chest pain TECHNIQUE: Single AP portable view of the chest. COMPARISON: 07/24/2021 FINDINGS: The lungs are clear and expanded. There is no demonstrated pleural abnormality. Normal size heart. Normal mediastinum and meño. Normal visualized pulmonary arteries. Normal visualized aortic arch and descending thoracic aorta. There is a levoscoliosis of the thoracic spine. Normal visualized ribs, clavicles, and shoulders. There is no demonstrated abnormality of the visualized soft tissue structures of the upper abdomen. RAD/Chest 1 View (Portable) IMPRESSION: No active disease. Electronically Signed: Gigi Siddiqui MD at 17:23 EDT ,
[2023-08-19 16:40] LABS: Absolute Lymphocyte Count 0.88 X10^3/uL (0.83-4.51); Absolute Neutrophil Count 6.1 X10^3/uL (2.0-7.7); Basophil# 0.05 X10^3/uL; Basophil% 0.6 % (0-1); Eosinophil# 0.11 X10^3/uL; Eosinophils% 1.3 % (0-5); Hematocrit 36.7 % (37-47); Hemoglobin 12.2 g/dL (12.0-15.0); Lymphocyte # 0.88 X10^3/ul (0.83-4.51); Lymphocyte % 10.8 % (19-41); Mean Corp Hgb Conc 33.2 g/dL (32-36); Mean Corpuscular Hgb 31.5 pg (27.0-32.0); Mean Corpuscular Volume 94.8 fL (81-99); Mean Platelet Vol. 9.7 fl (6.2-12.0); Monocyte# 0.92 X10^3/uL; Monocyte% 11.3 % (0-10); NRBC Flagged by Analyzer 0 % (0-5); Neutrophil # 6.12 X10^3/uL (2.7-7.7); Neutrophil % 74.9 % (47-70); Platelet Count 323 K/mm3 (150-450); RBC Distribution Width CV 13.5 % (11.6-14.6); RBC Distribution Width SD 46.3 fl (35.1-43.9); Red Blood Count 3.87 M/mm3 (4.2-5.4); White Blood Count 8.2 K/mm3 (4.4-11.0)
[2023-08-19 17:19] LABS: Anion Gap 5 (5-15); BUN 14 mg/dL (7-18); BUN/Creat Ratio 12.4 RATIO (10-20); Calcium,Total 10.5 mg/dL (8.5-10.1); Chloride 95 mmol/L (98-107); Creatinine, Serum 1.13 mg/dL (0.55-1.02); EST Glomerular Filtration Rate 49 mL/min (>60); Est Glom Filt Rate - Afr Amer 60 mL/min (>60); Glucose 91 mg/dL (74-106); Sodium Level 127 mmol/L (136-145); Troponin-I HS (w/2H Reflex) 7 pg/mL (3.0-54.0)
[2023-08-19 18:30] LABS: Reflex Troponin-HS? (from REC) Y
[2023-08-19 19:09] LABS: Troponin-I HS 6 pg/mL (3.0-54.0)
--- NOTE | 2023-08-19 20:02 | EDS_ITS ---
HPI History of Present Illness Chief Complaint: Chest Pain Informant: patient Onset/Context/Timing Onset: Today Activity at onset: exertion Timing: Intermittent and Lasts (35 minutes) Quality: Positive for Aching and Tightness Location: Right Chest and Left Chest Worsened By: Nothing Relieved By: Nothing Associated Symptoms: Positive for Dyspnea; Negative for Nausea, Vomiting, Diaphoresis, Cough, Fever, Lightheadedness, Acid Reflux or Palpitations Narrative Narrative: Patient presents with chest pain that began today. Patient states it came on while she was exerting herself. Patient states she was carrying groceries from her car into her house when the pain began. Patient states it lasted approximately 35 minutes. Patient states it radiated to her right arm and right jaw. Patient states it was diffuse across her chest. Patient states nothing made it better and nothing made it worse. Patient had some shortness of breath with it. Patient denies any nausea or vomiting. Patient denies any diaphoresis. Patient denies any cough or fevers. Patient denies any palpitations. CVD Risk Factors: Positive for Hypertension and Hypercholesterolemia; Negative for Diabetes, Family History 1' </=55 or Smoking PE Risk Factors: Negative for Recent Travel/Surgery, Recent Immobilization, Prior DVT or PE or Cancer [facility] Medical History Anemia Anxiety Arthritis Back pain Benign essential hypertension Cancer Cardiology follow-up encounter Collagenous colitis Depression Dyslipidemia Former smoker Fracture of proximal phalanx of left little finger Gastric reflux Hepatitis High cholesterol History of edema History of pain when walking History of steroid therapy History of stress test Hypertension Insomnia Kidney disease Lupus Lupus (systemic lupus erythematosus) MDD (major depressive disorder), recurrent, in partial remission Migraine headache Nonobstructive atherosclerosis of coronary artery Nonrheumatic mitral (valve) prolapse Osteoporosis Rheumatoid arthritis Syncope Ulcerative colitis Wears hearing aid Home Medications omeprazole 20 mg capsule,delayed release 20 mg PO BID gerd/UC 03/20/14 [History Last Taken 10/01/22 08:30] bupropion HCl 300 mg 24 hr tablet, extended release 300 mg PO DAILY depression 08/10/16 [History Last Taken Unknown] sertraline 100 mg tablet 100 mg PO DAILY 07/05/20 [History Last Taken Unknown] prednisone 10 mg tablet 10 mg PO DAILY PRN LUPUS 02/27/22 [History Last Taken Unknown] gabapentin 100 mg capsule 100 mg PO TID 05/21/22 [History Last Taken 08/13/22] methotrexate sodium 2.5 mg tablet 6 tab PO .weekly 05/21/22 [History Last Taken Unknown] acetaminophen 325 mg tablet 1,000 mg PO Q8H Pain 08/09/22 [History Last Taken Unknown] folic acid 1 mg tablet 1 mg PO DAILY 08/09/22 [History Last Taken Unknown] leucovorin calcium 15 mg tablet 15 mg PO TU 08/09/22 [History Last Taken Unknown] potassium chloride 10 mEq capsule,extended release 10 meq PO DAILY 08/09/22 [History Last Taken Unknown] amlodipine 5 mg tablet 5 mg PO DAILY bp #90 tabs 11/08/22 [Rx Last Taken Unknown] atorvastatin 20 mg tablet 20 mg PO DAILY 02/04/23 [History Last Taken Unknown] carvedilol 3.125 mg tablet 3.125 mg PO BID heart #180 tabs 03/13/23 [Rx Last Taken Unknown] clonazepam 0.5 mg tablet 0.5 mg PO QHS #30 tabs 07/22/23 [Rx Last Taken Unknown] lisinopril 20 mg tablet 20 mg PO DAILY #90 tabs 08/12/23 [Rx Last Taken Unknown] Allergy/AdvReac Type Severity Reaction Status Date / Time adhesive tape Allergy Rash Verified 08/19/23 16:04 aripiprazole [From Abilify] Allergy mental Verified 08/19/23 16:04 status change atorvastatin calcium Allergy Unknown Verified 08/19/23 16:04 [From Lipitor] Beta-Blockers Allergy Unknown Verified 08/19/23 16:04 (Beta-Adrenergic Bloc cefaclor [From Ceclor] Allergy Unknown Verified 08/19/23 16:04 clarithromycin [From Biaxin] Allergy unknown Verified 08/19/23 16:04 erythromycin base Allergy NEEDS Verified 08/19/23 16:04 FOLLOW-UP guaifenesin [From Entex LA] Allergy unknown Verified 08/19/23 16:04 phenylephrine [From Entex LA] Allergy unknown Verified 08/19/23 16:04 phenylpropanolamine Allergy unknown Verified 08/19/23 16:04 [From Entex LA] Sulfa (Sulfonamide Allergy Hives Verified 08/19/23 16:04 Antibiotics) Tetracyclines Allergy Unknown Verified 08/19/23 16:04 oxycodone AdvReac NEEDS Verified 08/19/23 16:04 FOLLOW-UP propoxyphene [From Darvon] AdvReac Nausea Verified 08/19/23 16:04 Family History Father CAD (coronary artery disease) Myocardial infarction Hypertension Mother Hypertension Myocardial infarction CAD (coronary artery disease) Daughter Depression Diabetes Seizures Surgical History H/O arthroscopic knee surgery History of hysterectomy History of left heart catheterization (11/01/14) History of tonsillectomy History of tubal ligation Hx of cholecystectomy Hx of colonoscopy Hx of left cataract extraction Hx of right cataract extraction Hx of right knee surgery Social History Smoking Status: Former smoker how long ago did patient quit smokin + years ago alcohol intake: current alcohol intake frequency: holidays/special occasions only Alcohol type: wine substance use type: does not use caffeine: Yes Type: carbonated beverages Number of servings: 6 ROS ROS ED Constitutional Constitutional ED: Denies chills or fever(s) Eyes Eyes: Denies blurry vision or change in vision ENT ENT ED: Reports sore throat; Denies rhinorrhea Cardiovascular Cardiovascular: Reports chest pain; Denies palpitations Respiratory/Chest Respiratory/Chest: Reports dyspnea; Denies cough Gastrointestinal Gastrointestinal: Denies nausea or vomiting Genitourinary Genitourinary ED: Denies dysuria or hematuria Musculoskeletal Musculoskeletal: Reports back pain; Denies neck pain Integumentary Denies abscess or rash Neurologic Neurologic: Denies headache(s) or weakness Allergic/Immunologic Allergic/Immunologic ED: Denies mouth swelling or urticaria EXAM Physical Exam Const Vital Signs: 08/19/23 16:04 08/19/23 19:25 08/19/23 19:25 Temperature 97.9 F Temperature Source Temporal Pulse Rate 62 95 Respiratory Rate 18 20 H Respiratory Effort Blood Pressure 154/75 H 153/95 H Blood Pressure Mean 101 114 Pulse Ox 98 97 Oxygen Delivery Method Room Air Room Air Room Air 08/19/23 19:41 08/19/23 20:00 08/19/23 21:02 Temperature 97.9 F Temperature Source Oral Pulse Rate 67 70 Respiratory Rate 13 15 Respiratory Effort Normal Blood Pressure 100/83 H 138/80 H Blood Pressure Mean 88 99 Pulse Ox 95 95 Oxygen Delivery Method Room Air Room Air Positive well nourished and well developed General Appearance ED: well developed and NAD HEENT Reports moist mucous membranes Neck supple and no JVD Chest Wall palpation of chest normal Resp normal respiratory effort and clear to auscultation bilaterally Cardio regular rate and regular rhythm GI soft to palpation, non-tender and non-distended Neuro oriented x3, CN's II-XII intact bilaterally and no sensory deficits noted Sensorium / Orientation: awake and alert Motor Exam: strength 5/5 throughout Psych mental status grossly normal Heart Score History: Moderately Suspicious ECG: Normal Age: >/= 65 years Risk Factors: 1 or 2 Risk Factors Troponin: </= Normal Limit Score: 4 MDM MDM Lab Data Attestation: I reviewed the patient's lab results. Lab results narrative: CBC was reviewed and was within normal limits. Basic metabolic profile was reviewed and was essentially within normal limits. Sodium was slightly low at 127. High-sensitivity troponin was reviewed and was normal at 7. 2-hour repeat high-sensitivity troponin was reviewed and was normal at 6. Labs: Laboratory Results - last 24 hr 08/19/23 08/19/23 15:42 18:40 WBC 8.2 RBC 3.87 L Hgb 12.2 Hct 36.7 L MCV 94.8 MCH 31.5 MCHC 33.2 RDW Std Deviation 46.3 H RDW Coeff of Hiwot 13.5 Plt Count 323 MPV 9.7 Immature Gran % (Auto) 1.100 H Neut % (Auto) 74.9 H Lymph % (Auto) 10.8 L [place] % (Auto) 11.3 H Eos % (Auto) 1.3 Baso % (Auto) 0.6 Absolute Neuts (auto) 6.1 Absolute Lymphs (auto) 0.88 Nucleated RBC % 0 Sodium 127 L Potassium 4.0 Chloride 95 L Carbon Dioxide 27.0 Anion Gap 5 BUN 14 Creatinine 1.13 H Est GFR (MDRD) Af Amer 60 Est GFR (MDRD) Non-Af 49 L BUN/Creatinine Ratio 12.4 Glucose 91 Calcium 10.5 H Troponin I High Sens 7 6 Radiography Chest X-Ray - ED: 1 View, Read by ED Physician, Read by Radiologist and No Acute Disease Diagnostic Testing: Clinical Impression(s) from Imaging Studies Chest X-Ray 08/19/23 16:07 IMPRESSION: No active disease. Electronically Signed: Gigi Siddiqui MD at 17:23 EDT , Portable 1 view chest x-ray was obtained. On my independent interpretation, lung walters are clear. There is normal cardiac silhouette. Bony thorax is normal. There is no acute process noted. Radiologist also interpreted the x- ray and agrees. Management Discussion w/another healthcare provider: Hospitalist Treatment and Re-Evaluation :: Patient was given aspirin here. Patient was advised of her findings. Patient is feeling better on reevaluation. Patient denies any further chest pain. Patient has a HEART score of 4. Patient's last stress test was 2 years ago. And had a normal echocardiogram 5 months ago however, this was not a stress echocardiogram. Because of the suspicious nature of her chest pain coming on with exertion and having shortness of breath with the chest pain, I recommended admission to the hospital for further evaluation. Case was discussed with the hospitalist. He will admit the patient to his service. Patient understood and was agreeable with the plan. All questions were answered. Discharge Plan Dx/Rx/DC Orders Clinical Impression: Benign essential hypertension, Chest pain Disposition Disposition: [facility] Care [facility]
--- NOTE | 2023-08-19 21:20 | HP.PCM.HOS_ITS ---
HPI - General General Date of Admission: 08/19/23 Date of Service: 08/19/23 Chief Complaint: Chest pain ongoing for some time but this time it lasted longer about half an hour. HPI Narrative BERNY TOLENTINO, is a 82 F who denies prior history of CAD or cardiac stent state she had chest pain while she was carrying a grocery bag. This is started about left anterior chest around inframammary area, moved to right side with radiation to jaw/neck right upper extremity along with shortness of breath. She felt like pressure about 4-5/10 in intensity. She used to get chest pain occasionally on exertion for last 3 to 4 weeks but used to get better/resolved after rest but this time it lasted longer about half an hour. She was concerned therefore brought to ED by EMS. She denied dizziness syncope or diaphoresis. Her father and mother both had CAD and mother of [place] at early age. Her father also had a stroke. She has history of hypertension and dyslipidemia. Twelve-lead EKG done in the ER shows sinus bradycardia 58 bpm, NE 140 ms. QTc 376 ms. Her vitals in the ER in acceptable limit. She has further admitted. Labs and imaging reviewed. First 2 troponins are negative. [facility] Medical History Anemia Anxiety Arthritis Back pain Benign essential hypertension Cancer Cardiology follow-up encounter Collagenous colitis Depression Dyslipidemia Former smoker Fracture of proximal phalanx of left little finger Gastric reflux Hepatitis High cholesterol History of edema History of pain when walking History of steroid therapy History of stress test Hypertension Insomnia Kidney disease Lupus Lupus (systemic lupus erythematosus) MDD (major depressive disorder), recurrent, in partial remission Migraine headache Nonobstructive atherosclerosis of coronary artery Nonrheumatic mitral (valve) prolapse Osteoporosis Rheumatoid arthritis Syncope Ulcerative colitis Wears hearing aid Home Medications omeprazole 20 mg capsule,delayed release 20 mg PO BID gerd/UC 03/20/14 [History Last Taken 10/01/22 08:30] bupropion HCl 300 mg 24 hr tablet, extended release 300 mg PO DAILY depression 08/10/16 [History Last Taken Unknown] sertraline 100 mg tablet 100 mg PO DAILY 07/05/20 [History Last Taken Unknown] prednisone 10 mg tablet 10 mg PO DAILY PRN LUPUS 02/27/22 [History Last Taken Unknown] gabapentin 100 mg capsule 100 mg PO TID 05/21/22 [History Last Taken 08/13/22] methotrexate sodium 2.5 mg tablet 6 tab PO .weekly 05/21/22 [History Last Taken Unknown] acetaminophen 325 mg tablet 1,000 mg PO Q8H Pain 08/09/22 [History Last Taken Unknown] folic acid 1 mg tablet 1 mg PO DAILY 08/09/22 [History Last Taken Unknown] leucovorin calcium 15 mg tablet 15 mg PO TU 08/09/22 [History Last Taken Unknown] potassium chloride 10 mEq capsule,extended release 10 meq PO DAILY 08/09/22 [Hi story Last Taken Unknown] amlodipine 5 mg tablet 5 mg PO DAILY bp #90 tabs 11/08/22 [Rx Last Taken U nknown] atorvastatin 20 mg tablet 20 mg PO DAILY 02/04/23 [History Last Taken Unknown] carvedilol 3.125 mg tablet 3.125 mg PO BID heart #180 tabs 03/13/23 [Rx Last Taken Unknown] clonazepam 0.5 mg tablet 0.5 mg PO QHS #30 tabs 07/22/23 [Rx Last Taken Unknown] lisinopril 20 mg tablet 20 mg PO DAILY #90 tabs 08/12/23 [Rx Last Taken Unknown] Allergy/AdvReac Type Severity Reaction Status Date / Time adhesive tape Allergy Rash Verified 08/19/23 16:04 aripiprazole [From Abilify] Allergy mental Verified 08/19/23 16:04 status change atorvastatin calcium Allergy Unknown Verified 08/19/23 16:04 [From Lipitor] Beta-Blockers Allergy Unknown Verified 08/19/23 16:04 (Beta-Adrenergic Bloc cefaclor [From Ceclor] Allergy Unknown Verified 08/19/23 16:04 clarithromycin [From Biaxin] Allergy unknown Verified 08/19/23 16:04 erythromycin base Allergy NEEDS Verified 08/19/23 16:04 FOLLOW-UP guaifenesin [From Entex LA] Allergy unknown Verified 08/19/23 16:04 phenylephrine [From Entex LA] Allergy unknown Verified 08/19/23 16:04 phenylpropanolamine Allergy unknown Verified 08/19/23 16:04 [From Entex LA] Sulfa (Sulfonamide Allergy Hives Verified 08/19/23 16:04 Antibiotics) Tetracyclines Allergy Unknown Verified 08/19/23 16:04 oxycodone AdvReac NEEDS Verified 08/19/23 16:04 FOLLOW-UP propoxyphene [From Darvon] AdvReac Nausea Verified 08/19/23 16:04 Family History Father CAD (coronary artery disease) Myocardial infarction Hypertension Mother Hypertension Myocardial infarction CAD (coronary artery disease) Daughter Depression Diabetes Seizures Surgical History H/O arthroscopic knee surgery History of hysterectomy History of left heart catheterization (11/01/14) History of tonsillectomy History of tubal ligation Hx of cholecystectomy Hx of colonoscopy Hx of left cataract extraction Hx of right cataract extraction Hx of right knee surgery Social History Smoking Status: Former smoker how long ago did patient quit smokin + years ago alcohol intake: current alcohol intake frequency: holidays/special occasions only Alcohol type: wine substance use type: does not use caffeine: Yes Type: carbonated beverages Number of servings: 6 ROS ROS Narrative Constitutional: Reports fatigue and weakness. No fever. HEENT: Reports systems reviewed and no addt'l complaints, except as documented Respiratory/Chest: Denies smoking history and no emphysema or COPD no wheezing. CVS: As described in HPI. Gastrointestinal: Denies coffee ground emesis, hematemesis or vomiting Genitourinary: Denies burning urination or new urinary tract symptoms Musculoskeletal: History of polyarthralgia in the past. Diagnosed with lupus by Dr. Cali. Denies acute joint pain or limited range of motion. No acute injury Neurologic: Denies seizure-like symptoms. skin: No ulcer. No rash Endocrinology: Reports systems reviewed and no addt'l complaints, except as documented Hematologic/Lymphatic: Reports systems reviewed and no addt'l complaints, except as documented Rest 14 ROS are negative except as mentioned in HPI Vital Signs Vital Signs Vital Signs: 08/19/23 16:04 08/19/23 19:25 08/19/23 19:25 Temperature 97.9 F Temperature Source Temporal Pulse Rate 62 95 Respiratory Rate 18 20 H Respiratory Effort Blood Pressure 154/75 H 153/95 H Blood Pressure Mean 101 114 Pulse Ox 98 97 Oxygen Delivery Method Room Air Room Air Room Air 08/19/23 19:41 08/19/23 20:00 08/19/23 21:02 Temperature 97.9 F Temperature Source Oral Pulse Rate 67 70 Respiratory Rate 13 15 Respiratory Effort Normal Blood Pressure 100/83 H 138/80 H Blood Pressure Mean 88 99 Pulse Ox 95 95 Oxygen Delivery Method Room Air Room Air Weight Weight: 152 lb 12.485 oz Body Mass Index (BMI) 23.9 Physical Exam Narrative General: Alert, Oriented x3, Cooperative HEENT: Hard of hearing, uses hearing aid atraumatic, PERRLA, EOMI, Normocephalic Oral: Oral mucosa moist. No Gingival or Mucosal Lesions/ Ulcerations Neck: Supple, No JVD, Negative Carotid Bruits Lungs: Air entry diminished in bilateral lung bases. No crepitation/rhonchi Cardiovascular: Sinus bradycardia. Normal S1, Normal S2, no murmur. Abdomen: Bowel Sounds Present, Soft, Non Tender, Non-Distended : No renal angle tenderness. No suprapubic tenderness. Extremities: No edema, Capillary Refill Less than 3 Seconds Skin: No rashes, No breakdown Musculoskeletal: No Tenderness to Palpation of Joints or Extremities Neurological: Cranial nerves II-XII grossly intact, DTR 2+/4. No acute focal neurological deficit. Psych/Mental Status: Normal Affect, Appropriate. Results Lab / Micro Data 08/19/23 15:42 08/19/23 15:42 Labs: Laboratory Results - last 24 hr 08/19/23 15:42: WBC 8.2, RBC 3.87 L, Hgb 12.2, Hct 36.7 L, MCV 94.8, MCH 31.5, MCHC 33.2, RDW Std Deviation 46.3 H, RDW Coeff of Hiwot 13.5, Plt Count 323, MPV 9.7, Immature Gran % (Auto) 1.100 H, Neut % (Auto) 74.9 H, Lymph % (Auto) 10.8 L , [place] % (Auto) 11.3 H, Eos % (Auto) 1.3, Baso % (Auto) 0.6, Absolute Neuts (auto) 6.1, Absolute Lymphs (auto) 0.88, Nucleated RBC % 0, Sodium 127 L, Potassium 4.0, Chloride 95 L, Carbon Dioxide 27.0, Anion Gap 5, BUN 14, Creatinine 1.13 H, Est GFR (MDRD) Af Amer 60, Est GFR (MDRD) Non-Af 49 L, BUN/Creatinine Ratio 12.4, Glucose 91, Calcium 10.5 H, Troponin I High Sens 7 08/19/23 18:40: Troponin I High Sens 6 Radiology Impression Chest X-Ray 08/19/23 16:07 IMPRESSION: No active disease. Electronically Signed: Gigi Siddiqui MD at 17:23 EDT , Assessment & Plan Assessment/Plan (1) Unstable angina: PLAN: Plan Patient admitted with prolonged 30 minutes of anginal quality chest pain over left precordial area with radiation to carotids. 1. Atypical chest pain most likely unstable angina: Patient is being admitted i n PCU. Serial troponins are negative. Twelve-lead EKG shows sinus bradycardia. No acute changes. Repeat EKG on admission is 65 bpm, QTc [address]- T changes. BETI risk score 3. Pharmacological nuclear stress tomorrow AM. She follows Dr. Cardona last cardiology clinic visit in February 2023. She had last pharmacological nuclear stress test in July 2021 which reported normal pharmacological myocardial perfusion stress test. Last echo on 03/15/2023 reported normal left and right atrium, EF 65% normal LV size and systolic function. Patient also has chronic hyponatremia: IV fluid normal saline ordered 2. History of lupus with degenerative cervical spine disc disease, cervical spondylosis: Patient gets pain injection through Dr. Meredith. Continue gabapentin. 3. Hypertension: Patient on amlodipine and lisinopril continued. 4. Dyslipidemia: On atorvastatin. 5. GERD, anxiety and depression : On bupropion clonazepam and sertraline. Continue PPI. DVT prophylaxis moderate risk. Enoxaparin 40 mg subcu daily. Living will/advanced directive/end of life care: Patient does have living will or advanced directive. After discussion of benefits/risks procedures involved with full code, DNR CC arrest and DNR CC, the patient opted for DNRCC arrest with no intubation. Patient stated she is 82-year-old and she has lived her life and does not want artificial life support. Patient doesn't want artificial life support including intubation, tube feed, ventilator and/chest compression, central venous catheter, vasopressor and DC shock if needed Total time spent in [id number] encounter in discussion of advanced directive 17 minutes. Laboratory Results 08/19/23 15:42: WBC 8.2, RBC 3.87 L, Hgb 12.2, Hct 36.7 L, MCV 94.8, MCH 31.5, MCHC 33.2, RDW Std Deviation 46.3 H, RDW Coeff of Hiwot 13.5, Plt Count 323, MPV 9.7, Immature Gran % (Auto) 1.100 H, Neut % (Auto) 74.9 H, Lymph % (Auto) 10.8 L , [place] % (Auto) 11.3 H, Eos % (Auto) 1.3, Baso % (Auto) 0.6, Absolute Neuts (auto) 6.1, Absolute Lymphs (auto) 0.88, Nucleated RBC % 0, Sodium 127 L, Potassium 4.0, Chloride 95 L, Carbon Dioxide 27.0, Anion Gap 5, BUN 14, Creatinine 1.13 H, Est GFR (MDRD) Af Amer 60, Est GFR (MDRD) Non-Af 49 L, BUN/Creatinine Ratio 12.4, Glucose 91, Calcium 10.5 H, Troponin I High Sens 7 08/19/23 18:40: Troponin I High Sens 6 Charges/Coding Multi Select Codes Visit Charges Visit Charges: 24891 Init Hosp L3 Hospitalists' Procedures Procedures: 30471 Advncd Care Plan 30 Min
[2023-08-19] MEDS: Acetaminophen 500 MG Tablet 1000 MG PO (23:49)
[2023-08-19] MEDS: Pantoprazole Sodium 20 MG Tablet PO (23:49)
[2023-08-19] MEDS: Carvedilol 3.125 MG TABLET PO (23:49)
[2023-08-19] MEDS: clonazePAM 0.5 MG Tablet PO (23:49)
[2023-08-20 00:19] LABS: Magnesium 1.5 mg/dL (1.6-2.6)
[2023-08-20] MEDS: Enoxaparin 40 MG/0.4 ML Syringe SC (01:33)
[2023-08-20 03:47] VITALS: BP 132/56; PULSE 52; RESP 16; TEMP 36.1; O2SAT 92
[2023-08-20 06:23] LABS: Mucous, Urine 0 SEEN /hpf (<or=2+)
[2023-08-20 06:32] LABS: Color, Urine Yellow (Yellow); Glucose, Dipstick Normal (Normal); Ketone-Dipstick Negative (Negative); Leukocyte Esterase-Dipstick 100 /ul (Negative); Nitrite-Dipstick Positive (Negative); Occult Blood-Urine 10 /ul (Negative); Protein-Dipstick 15 mg/dl (Negative); Specific Gravity, Urine 1.015 (1.002-1.030); Urine Bilirubin Dipstick Negative (Negative); Urine Clarity Sl. Cloudy (Clear); Urine Urobilinogen Normal (Normal)
[2023-08-20 06:44] LABS: Bacteria 3+ /hpf (None Seen); Hyaline Cast 0-5 SEEN /lpf (0-5); Red Blood Cells-Urine 0-5 SEEN /hpf (0-5); Squamous Epithelial Cells - UA 0-5 SEEN /hpf (5-10); White Blood Cells 10-25 SEEN /hpf (0-5)
[2023-08-20 07:37] LABS: AST(SGOT) 19 U/L (15-37); Alanine Aminotransfer ALT/SGPT 20 U/L (13-56); Albumin, Serum 2.7 g/dL (3.2-5.0); Alkaline Phosphatase 122 U/L (45-117); Anion Gap 5 (5-15); BUN 16 mg/dL (7-18); BUN/Creat Ratio 16.4 RATIO (10-20); Bilirubin, Direct 0.09 mg/dL (0.00-0.30); Calcium,Total 10.1 mg/dL (8.5-10.1); Chloride 98 mmol/L (98-107); Cholesterol 126 mg/dL (200); Creatinine, Serum 0.98 mg/dL (0.55-1.02); EST Glomerular Filtration Rate 58 mL/min (>60); Est Glom Filt Rate - Afr Amer 70 mL/min (>60); Estimated Creatinine Clearance 44.52 ml/min; Globulin 3.3 g/dL (2.2-4.2); Glucose 94 mg/dL (74-106); High Density Lipoprotein 45 mg/dL; Potassium 4.3 mmol/L (3.5-5.1); Sodium Level 130 mmol/L (136-145); Thyroid Stim Hormone (TSH) 1.46 uIU/mL (0.358-3.74); Triglycerides 164 mg/dL; Very Low Density Lipoprotein 33 mg/dL (5-40)
[2023-08-20 08:07] VITALS: BP 145/60; PULSE 69; RESP 16; TEMP 36.7; O2SAT 94
[2023-08-20] MEDS: Aspirin E.C. 81 MG Tablet PO (08:20)
[2023-08-20] MEDS: Lisinopril 20 MG Tablet PO (08:21)
[2023-08-20] MEDS: 0.9% Saline Lock 10 ML Syringe IV (08:23)
[2023-08-20 08:46] VITALS: O2SAT 97
[2023-08-20 11:29] VITALS: BP 140/58; PULSE 70; RESP 16; TEMP 36.9; O2SAT 97
[2023-08-20] MEDS: Folic Acid 1 MG Tablet PO (11:34)
[2023-08-20] MEDS: Carvedilol 3.125 MG TABLET PO (11:34)
[2023-08-20] MEDS: leucovorin 15 MG Tablet PO (11:35)
[2023-08-20] MEDS: Pantoprazole Sodium 20 MG Tablet PO (11:36)
[2023-08-20] MEDS: Sertraline 100 MG Tablet PO (11:36)
[2023-08-20] MEDS: amLODIPine 5 MG Tablet PO (11:36)
[2023-08-20] MEDS: buPROPion (XL) 300 MG TABLET.XL PO (11:36)
[2023-08-20] MEDS: Acetaminophen 500 MG Tablet 1000 MG PO (11:37)
[2023-08-20] MEDS: Potassium Chloride Oral Tablet 10 MEQ PO (12:02)
--- NOTE | 2023-08-20 12:13 | STRESSREP_ITS ---
Stress Test Report Date: 08/20/2023 Procedure: Pharmacologic stress nuclear imaging study Indications: Chest pain Consent: Per the patient Procedure: The patient underwent pharmacologic (Regadenoson 0.4mg ) evaluation with a peak heart rate of 96 beats per minute (68%predicted maximal heart rate) and a peak blood pressure of 152/80 mmHg. The baseline ECG demonstrated sinus rhythm with nonspecific ST changes. The peak pharmacologic ECG demonstrated no diagnostic changes. There were no cardiac dysrhythmias pretest, during pharmacologic infusion, or recovery. There was no complaint of chest discomfort during pharmacologic infusion or recovery. The patient was injected with 11.4 millicuries of technetium 99m Cardiolite and subsequently rest SPECT Cardiolite nuclear imaging was obtained in the horizontal long, vertical long, and short axis views. The patient underwent pharmacologic (Regadenoson) evaluation. The patient was injected with 36.0 millicuries of technetium 99m Cardiolite and subsequently stress SPECT Cardiolite nuclear imaging was obtained in the horizontal long, vertical long, and short axis views. A gated Cardiolite study at peak stress was obtained. The examination was stopped secondary to completion of protocol. Rest and stress SPECT Cardiolite nuclear imaging status post realignment, normalization, and attenuation correction demonstrate no fixed or reversible perfusion defects. There is end systolic thickening and brightening. The gated Cardiolite study demonstrates myocardial thickening and inward wall motion. The reported LVEF is 82%. Impression: 1. Pharmacologic (Regadenoson) evaluation 2. Peak pharmacologic ECG with no diagnostic changes. 3. There were no cardiac dysrhythmias pretest, during pharmacologic infusion, or recovery. 5. Rest and stress SPECT Cardiolite nuclear imaging demonstrate relative uniform tracer uptake and myocardial perfusion appearing within normal limits. 6. The gated Cardiolite study reports an LVEF of 82%. This note was generated with [employer] software. It may contain incorrect words, spelling, and punctuation that were not noted in checking the note before signing.
--- NOTE | 2023-08-20 13:46 | DS.PCM_ITS ---
Providers Date of Admission: 08/19/23 Primary Care Physician: MALU Dawkins Reason For Visit: ANGINA Diagnosis Discharge Diagnosis (1) Unstable angina: Status: Acute Code(s): I20.0 - Unstable angina Medications at Discharge Home Medications omeprazole 20 mg capsule,delayed release 20 mg PO BID gerd/UC 03/20/14 bupropion HCl 300 mg 24 hr tablet, extended release 300 mg PO DAILY depression 08/10/16 sertraline 100 mg tablet 100 mg PO DAILY 07/05/20 prednisone 10 mg tablet 10 mg PO DAILY PRN LUPUS 02/27/22 gabapentin 100 mg capsule 100 mg PO TID 05/21/22 methotrexate sodium 2.5 mg tablet 6 tab PO .weekly 05/21/22 acetaminophen 325 mg tablet 1,000 mg PO Q8H Pain 08/09/22 folic acid 1 mg tablet 1 mg PO DAILY 08/09/22 leucovorin calcium 15 mg tablet 15 mg PO TU 08/09/22 potassium chloride 10 mEq capsule,extended release 10 meq PO DAILY 08/09/22 amlodipine 5 mg tablet 5 mg PO DAILY bp #90 tabs 11/08/22 atorvastatin 20 mg tablet 20 mg PO DAILY 02/04/23 carvedilol 3.125 mg tablet 3.125 mg PO BID heart #180 tabs 03/13/23 clonazepam 0.5 mg tablet 0.5 mg PO QHS #30 tabs 07/22/23 lisinopril 20 mg tablet 20 mg PO DAILY #90 tabs 08/12/23 aspirin 81 mg tablet,delayed release 81 mg PO BREAKFAST 30 days #30 tabs 08/20/23 Hospital Course Operations None Procedures Stress test Summary of Care Provided Minutes Spent on Discharge: 34 Hospital Course: Per HPI: BERNY TOLENTINO, is a 82 F who denies prior history of CAD or cardiac stent state she had chest pain while she was carrying a grocery bag. This is started about left anterior chest around inframammary area, moved to right side with radiation to jaw/neck right upper extremity along with shortness of breath. She felt like pressure about 4-5/10 in intensity. She used to get chest pain occasionally on exertion for last 3 to 4 weeks but used to get better/resolved after rest but this time it lasted longer about half an hour. She was concerned therefore brought to ED by EMS. She denied dizziness syncope or diaphoresis. Her father and mother both had CAD and mother of [place] at early age. Her father also had a stroke. She has history of hypertension and dyslipidemia. Twelve-lead EKG done in the ER shows sinus bradycardia 58 bpm, [place] 140 ms. QTc 376 ms. Her vitals in the ER in acceptable limit. She has further admitted. Labs and imaging reviewed. First 2 troponins are negative. Hospital Course: 1. Atypical chest pain/HTN/HLD?82-year-old female with a history of lupus presents to the hospital with atypical chest pain. Initial troponins were unremarkable and EKG was nonischemic. She had a stress test this morning which was also negative for any ischemia. Her symptoms have completely resolved so I discussed with her the plan for discharge today she expressed understanding of the risk and benefits of going home and would like to go home today. We will continue all of her home medications for hypertension and her hyperlipidemia however we will also add aspirin. 2. Lupus, GERD, anxiety, depression are all chronic medical conditions which complicate her care. Her home medications were continued where appropriate Physical Exam Narrative General: Alert, Oriented x3, Cooperative, No apparent distress HEENT: Atraumatic, PERRLA, EOMI, Normocephalic Oral: Moist Mucosa Neck: Supple, No JVD Lungs: Diminished, Normal air movement, No rhonchi, No wheeze, No rales Cardiovascular: Regular rate, Regular Rhythm, Normal S1, Normal S2, No murmurs Abdomen: Soft, Non Tender, Non-Distended, No Hepato-splenomegaly Extremities: No edema, Capillary Refill Less than 3 Seconds Skin: No rashes, No breakdown Musculoskeletal: No Tenderness to Palpation of Joints or Extremities Neurological: Cranial nerves II-XII grossly intact, Motor Exam 5/5 strength throughout, Sensory exam intact to light touch and pain Psych/Mental Status: Normal Affect, Appropriate Weight / BMI Weight Weight: 152 lb 12.485 oz Body Mass Index (BMI) 23.9 ABG / Lab / Microbiology Data 08/19/23 15:42 08/20/23 06:07 Laboratory: Laboratory Results - last 24 hr 08/19/23 15:42: WBC 8.2, RBC 3.87 L, Hgb 12.2, Hct 36.7 L, MCV 94.8, MCH 31.5, MCHC 33.2, RDW Std Deviation 46.3 H, RDW Coeff of [place] 13.5, Plt Count 323, MPV 9.7, Immature Gran % (Auto) 1.100 H, Neut % (Auto) 74.9 H, Lymph % (Auto) 10.8 L , [place] % (Auto) 11.3 H, Eos % (Auto) 1.3, Baso % (Auto) 0.6, Absolute Neuts (auto) 6.1, Absolute Lymphs (auto) 0.88, Nucleated RBC % 0, Sodium 127 L, Potassium 4.0, Chloride 95 L, Carbon Dioxide 27.0, Anion Gap 5, BUN 14, Creatinine 1.13 H, Est GFR (MDRD) Af Amer 60, Est GFR (MDRD) Non-Af 49 L, BUN/Creatinine Ratio 12.4, Glucose 91, Calcium 10.5 H, Troponin I High Sens 7 08/19/23 18:40: Magnesium 1.5 L, Troponin I High Sens 6 08/20/23 06:07: Sodium 130 L, Potassium 4.3, Chloride 98, Carbon Dioxide 27.0, Anion Gap 5, BUN 16, Creatinine 0.98, Estim Creat Clear Calc 44.52, Est GFR (MDRD) Af Amer 70, Est GFR (MDRD) Non-Af 58 L, BUN/Creatinine Ratio 16.4, Glucose 94, Calcium 10.1, Total Bilirubin 0.30, Direct Bilirubin 0.09, AST 19, ALT 20, Alkaline Phosphatase 122 H, Total Protein 6.0 L, Albumin 2.7 L, Globulin 3.3, Triglycerides 164, Cholesterol 126, LDL Cholesterol 48, VLDL Cholesterol 33, HDL Cholesterol 45, TSH 1.46 08/20/23 06:15: Urine Color Yellow, Urine Clarity Sl. Cloudy, Urine pH 6.0, Ur Specific [place] 1.015, Urine Protein 15 H, Urine Glucose (UA) Normal, Urine Ketones Negative, Urine Occult Blood 10 H, Urine Nitrite Positive H, Urine Bilirubin Negative, Urine Urobilinogen Normal, Ur Leukocyte Esterase 100 H, Urine RBC 0-5 SEEN, Urine WBC 10-25 SEEN, Ur Squamous Epith Cells 0-5 SEEN, Urine Bacteria 3+, Hyaline Casts 0-5 SEEN, Urine Mucus 0 SEEN Radiography Diagnostic Testing: Radiology Impression Chest X-Ray 08/19/23 16:07 IMPRESSION: No active disease. Electronically Signed: Gigi Siddiqui MD at 17:23 EDT , D/C Instructions Discharge Diet: Low fat / Low cholesterol Call your doctor if you observe: Fever of 101 or Higher, Shortness of breath, Dizziness, Fainting spells, Swelling in the ankles, Chest pain and Increased palpitations (irregular heartbeat) Meaningful Use Info Meaningful Use Diagnoses (Choose all that apply): None applicable Discharge Plan Admission Admit Date/Time: 08/19/23 21:17 Attending Provider: Grzegorz Canales Primary Care Provider: Giancarlo Castaneda Consulting Providers: Devin Allen Discharge Orders/Prescriptions Prescriptions: New aspirin 81 mg Tablet,Delayed Release (Dr/Ec) 81 mg PO BREAKFAST 30 Days Qty: 30 0RF Continued sertraline 100 mg tablet 100 mg PO DAILY Patient Comments: take 1 tablet by mouth once daily prednisone 10 mg tablet 10 mg PO DAILY PRN (Reason: LUPUS) Patient Comments: pt takes this PRN only. 3 days on 3 days off atorvastatin 20 mg tablet 20 mg PO DAILY omeprazole 20 MG capsule 20 mg PO BID Patient Comments: GERD bupropion HCl 300 MG tablet extended release 24 hr 300 mg PO DAILY methotrexate sodium 2.5 mg tablet 6 tab PO .weekly Patient Comments: take 6 tablets by mouth every week mondays gabapentin 100 mg capsule 100 mg PO TID potassium chloride 10 mEq Capsule, Extended Release 10 meq PO DAILY leucovorin calcium 15 mg Tablet 15 mg PO TU folic acid 1 mg Tablet 1 mg PO DAILY Hold Instructions: stopped acetaminophen 325 MG tablet 1,000 mg PO Q8H amlodipine 5 mg tablet 5 mg PO DAILY Qty: 90 3RF carvedilol 3.125 mg tablet 3.125 mg PO BID Qty: 180 3RF Rx Instructions: must administer with a meal/food clonazepam 0.5 mg tablet 0.5 mg PO QHS Qty: 30 2RF lisinopril 20 mg tablet 20 mg PO DAILY Qty: 90 3RF Referrals / Follow Up: Giancarlo Castaneda PA [Primary Care Provider] - Within 1 Week Disposition Disposition (needs filled in before D/C Order can be placed): Home, Self Care Charges/Coding Visit Charges Inpatient E&M: 61593 Disch Hosp >30min
--- NOTE | 2023-08-20 13:50 | CASEMGMT ---
Patient has order for discharge. RN CM in to review needs at discharge with patient. Patient denies needs at discharge. Patient had no further questions or concerns.
--- NOTE | 2023-08-20 14:10 | PHA.DC_ITS ---
Pharmacy [facility] has performed discharge medication reconciliation and counseling for this patient. The patient's discharge medication list was reviewed for discrepancies and discrepancies were resolved. The patient was counseled on the following discharge medications and changes in medications for homegoing were reviewed. The Reason for Use, instructions for use, and potential side effects were reviewed for all new medications. The patient's questions regarding all of their medications were answered. 1. Aspirin 81 mg PO daily The patient was able to verbally demonstrate an understanding of their discharge medications. Medications at Discharge Home Medications omeprazole 20 mg capsule,delayed release 20 mg PO BID gerd/UC 03/20/14 bupropion HCl 300 mg 24 hr tablet, extended release 300 mg PO DAILY depression 08/10/16 sertraline 100 mg tablet 100 mg PO DAILY 07/05/20 prednisone 10 mg tablet 10 mg PO DAILY PRN LUPUS 02/27/22 gabapentin 100 mg capsule 100 mg PO TID 05/21/22 methotrexate sodium 2.5 mg tablet 6 tab PO .weekly 05/21/22 acetaminophen 325 mg tablet 1,000 mg PO Q8H Pain 08/09/22 folic acid 1 mg tablet 1 mg PO DAILY 08/09/22 leucovorin calcium 15 mg tablet 15 mg PO TU 08/09/22 potassium chloride 10 mEq capsule,extended release 10 meq PO DAILY 08/09/22 amlodipine 5 mg tablet 5 mg PO DAILY bp #90 tabs 11/08/22 atorvastatin 20 mg tablet 20 mg PO DAILY 02/04/23 carvedilol 3.125 mg tablet 3.125 mg PO BID heart #180 tabs 03/13/23 clonazepam 0.5 mg tablet 0.5 mg PO QHS #30 tabs 07/22/23 lisinopril 20 mg tablet 20 mg PO DAILY #90 tabs 08/12/23 aspirin 81 mg tablet,delayed release 81 mg PO BREAKFAST 30 days #30 tabs
[2023-08-20] MEDS: Gabapentin 100 MG Capsule PO (14:41)
[2023-08-20 14:53] VITALS: BP 129/53; PULSE 66; RESP 16; TEMP 36.4; O2SAT 92
== END 2023-08-20 13:47 | disposition home or self-care (01) ==
LOC: ED 22:07 → PCU 22:18
PROVIDERS: Admitting Provider Internal Medicine; Emergency Provider Emergency Medicine; PCP Physician Assistant; Visit Provider Family Medicine
DX: I25.110 Atherosclerotic heart disease of native coronary artery with unstable angina pectoris (principal); M32.9 Systemic lupus erythematosus, unspecified; E78.00 Pure hypercholesterolemia, unspecified; Z87.891 Personal history of nicotine dependence; R00.1 Bradycardia, unspecified; I10 Essential (primary) hypertension; F41.9 Anxiety disorder, unspecified; K21.9 Gastro-esophageal reflux disease without esophagitis; F32.A Depression, unspecified; Z79.899 Other long term (current) drug therapy
CPT/HCPCS: 36415; 71045; 78452; 80048; 80061; 80076; 81001; 83735; 84443; 84484; 85025; 93005; 93017; 96372; 99221; 99285; A9500; A4216; G0378; J2785

== ENCOUNTER 2023-09-16 07:52 | Day surgery (SDC) | payer MEDICARE, SELFPAY ==
[2023-09-16] VITALS (7 sets, daily range): BP systolic 102–149; BP diastolic 51–73; PULSE 57–62; RESP 16; TEMP 36.4–36.8; O2SAT 95–98; BMI 22.4
[2023-09-16] MEDS: Lactated Ringers 1,000 ML 15 ML IV (08:15)
--- NOTE | 2023-09-16 08:48 | RAD_ITS ---
PROCEDURE: Bilateral L4 S1 medial branch nerve block. DATE OF EXAMINATION: September 16, 2023. INDICATION: Female, 82 years old. Chronic low back pain. FLUOROSCOPY TIME (if supplied): (15.3 seconds) minutes/seconds. 3.38 mGy. 6 images were submitted. RAD/L/S Spine w Bend Min 6 Vw IMPRESSION: Fluoroscopic services provided for lateral L4-S1 medial nerve block. Electronically Signed: Rancho Simpson MD at 9:09 EST ,
[2023-09-16] MEDS: MethylPREDNISolone Acetate 80 MG/ML Vial (08:53)
[2023-09-16] MEDS: Bupivacaine 0.25% 30 ML Vial (08:53)
[2023-09-16] MEDS: Lidocaine 1% (5 ml sdv) 5 ML Vial (08:54)
--- NOTE | 2023-09-16 08:56 | PCM.OPRPT ---
Report of Operation Date of Procedure: 09/16/23 Description of Surgical Findings:: Preoperative diagnosis: Lumbosacral spondylosis, lumbosacral degenerative disc disease, lumbar facet arthropathy Postoperative diagnosis : Lumbosacral spondylosis, lumbosacral degenerative disc disease, lumbar facet arthropathy PROCEDURE PERFORMED: Bilateral lumbar medial branch block at L4, L5, and S1. ANESTHESIA: MAC. BLOOD LOSS: Minimal. COMPLICATIONS: None. DESCRIPTION OF PROCEDURE: History and physical of today was reviewed. Risks and benefits of the procedure were explained. The patient understood and agreed to proceed. Informed consent was obtained. IV inserted per routine protocol. The patient was taken to the operating room and placed in the prone position with a pillow positioned underneath the abdomen. The lower back area was prepped and draped in a sterile fashion using iodine x3. Under fluoroscopy guidance on AP view, the L4 through S1 vertebral bodies were visualized. The skin and subcutaneous tissue was anesthetized with approximately 5 mL of 1% lidocaine using a 25-gauge regular needle. Under direct visualization with fluoroscopy, at approximately 25-degree angle, starting on the left L4, ending on the right L4, passing through the L5 and S1 bilaterally, using a 22-gauge 3-1/2-inch spinal needle, the needle was advanced via the skin. The tip of the needle was maneuvered and directed towards the superior medial gutter of the transverse process at the vicinity of the medial branch. Once tip of the needle was in contact with the bone, the needle was pulled approximately 2 mm off the bone. After negative aspiration for blood or CSF and confirmation on AP, oblique as well as lateral view, a total of 12 mL of preservative-free 0.25% Marcaine with 80 mg of Depo-Medrol was injected in divided doses between those six levels. The needles were then removed intact. The patient experienced no sign or symptoms of intrathecal or intravascular injection. The patient experienced no paresthesia. The procedure was completed without any apparent difficulty or any complications. The patient appeared to tolerate it well. ASSESSMENT AND PLAN: This is an 82-year-old female with lumbosacral spondylosis, lumbosacral degenerative disc disease, lumbar facet arthropathy status post bilateral lumbar medial branch block at L4-5, L5-S1, patient will continue her current medications, patient will follow up in approximately 2 weeks for reevaluation.
== END 2023-09-16 10:37 | disposition home or self-care (01) ==
LOC: SDC 07:56 → AC 07:56
PROVIDERS: PCP Physician Assistant; Referring Provider Anesthesiology Pain Medicine; Visit Provider Anesthesiology Pain Medicine
PROC: 3E0S3BZ Introduction of Anesthetic Agent into Epidural Space, Percutaneous Approach (ICD-10-PCS; CPT 62322; principal; 2023-09-16 09:25)
DX: M47.817 Spondylosis without myelopathy or radiculopathy, lumbosacral region (principal); M46.96 Unspecified inflammatory spondylopathy, lumbar region; M51.37 Other intervertebral disc degeneration, lumbosacral region; I25.10 Atherosclerotic heart disease of native coronary artery without angina pectoris; F41.9 Anxiety disorder, unspecified; F32.A Depression, unspecified; E78.00 Pure hypercholesterolemia, unspecified; I10 Essential (primary) hypertension; Z79.82 Long term (current) use of aspirin; Z79.899 Other long term (current) drug therapy
CPT/HCPCS: 64493; 64494; 01992; 64483; 72114; J7120

== ENCOUNTER 2023-11-11 07:13 | Day surgery (SDC) | payer MEDICARE, SELFPAY ==
--- OUTSIDE RECORDS SUMMARY | 2023-11-11 07:20 | XMS RPT_ITS | CCD ---
Author Name Unknown Address [address] [place] [address] Organization [facility] Care Team Providers Care Telecommunications Sales Representative Name Role Phone Verónica Flynn Unavailable Candi Frias Y Unavailable Unavailable Dinora GRIMM, Morenita A Unavailable Unavailable PITTINGER, MORENITA A Unavailable Unavailable PITTINGER, MORENITA Unavailable Unavailable MD Brendan, [place] S Unavailable Candi Frias Y Unavailable Unavailable Roof INDUSTRIAL MACHINE OPERATOR, [facility] Unavailable SIRISHA Bazzi, Keira Mondragon Unavailable Unavailabl e Blaz ROLLER LEVELER.CAN STACKER, DNP, Narayan Primary Care Provider Blaz ROLLER LEVELER.CHRISTIAN, SHELLI, Narayan Primary Care Provider Blaz ROLLER LEVELER.CHRISTIAN, SHELLI, Narayan Primary Care Provider Taylor Del Real MD Primary Care Provider Giancarlo Castaneda PA-C Primary Care Provider Giancarlo CASTANEDA Attending Unavailable TAYLOR DEL REAL Primary Care Unavailab Giancarlo Sawyer Primary Care Unavailable Giancarlo CASTANEDA Referring Unavailable Giancarlo CASTANEDA Primary Care Unavailable Giancarlo CASTANEDA Attending Unavailable Giancarlo CASTANEDA Primary Care Unavailable Giancarlo CASTANEDA Referring Unavailable KAYLIN CLAY Attending Unavailable Giancarlo CASTANEDA Primary Care Unavailable Giancarlo CASTANEDA Primary Care Unavailable Giancarlo CASTANEDA Attending Unavailable Giancarlo CASTANEDA Primary Care Unavailable Giancarlo CASTANEDA Referring Unavailable Giancarlo CASTANEDA Primary Care Unavailable ALEJO LUU Referring Unavailable Giancarlo CASTANEDA Primary Care Unavailable JACOBO FOX Attending Unavailable Giancarlo CASTANEDA Referring Unavailable CASTANEDAGiancarlo COLE Primary Care Unavailable Giancarlo CASTANEDA Referring Unavailable CASTANEDA, Giancralo HALL Primary Care Unavailable BRIAN VANCE Attending Unavailable Giancarlo CASTANEDA Primary Care Unavailable CASTANEDA, M RAFAEL Referring Unavailable CASTANEDA, M RAFAEL Primary Care Unavailable KAYLIN CLAY Attending Unavailable KAYLIN CLAY Referring Unavailable CASTANEDA, Giancarlo HALL Primary Care Unavailable KAYLIN CLAY Referring Unavailable Giancarlo CASTANEDA Primary Care Unavailable Giancarlo CASTANEDA Attending Unavailable CASTANEDA, M RAFAEL Primary Care Unavailable CASTANEDA, M RAFAEL Primary Care Unavailable KAYLIN CLAY Referring Unavailable ALEJO LUU Referring Unavailable Giancarlo CASTANEDA Primary Care Unavailable CASTANEDA, M RAFAEL Primary Care Unavailable KAYLIN CLAY Referring Unavailable CASTANEDA, M RAFAEL Primary Care Unavailable CASTANEDA, M RAFAEL Primary Care Unavailable Giancarlo CASTANEDA Attending Unavailable ALEJO LUU Attending Unavailable EDELMIRA, Giancarlo HALL Primary Care Unavailable Allergies Allergy Classification Reported Allergen(s) Allergy Type Date of Onset Reaction(s) Facility (8 sources) Adrenergic Beta-Antagonists drug allergy 02-01-20 11 Interfer with antidepressants [facility] Work Phone: (8 sources) atorvastatin drug allergy 05-30-20 12 Myalgias [facility] Work Phone: (8 sources) cefaclor drug allergy 02-01-20 11 [facility] Work Phone: [phone] (8 sources) penicillin drug allergy 02-01-20 11 [facility] Work Phone: (8 sources) Sulfonamides (Antibiotic) drug allergy 02-01-20 11 [facility] Work Phone: (8 sources) tetracycline drug allergy 02-01-20 11 [facility] Work Phone: (8 sources) BANDAIDS drug allergy 02-01-20 11 [facility] Work Phone: (20 sources) acetaminophen / HYDROcodone; Translations: [HYDROCODONE-CONG TAMINOPHEN] Drug Allergy 11-17-[address] [facility] Repository (20 sources) ARIPiprazole; Translations: [ARIPIPRAZOLE] Drug Allergy 03-05-20 [address] [facility] Repository (20 sources) clarithromycin; Translations: [CLARITHROMYCIN] Drug Allergy 09-06-[address] [facility] Rep[facility] (20 sources) erythromycin; Translations: [ERYTHROMYCIN] Drug Allergy 09-06-[address] [facility] (20 sources) propoxyphene; Translations: [PROPOXYPHENE] Drug Allergy 09-06-[address] [facility] Rep[facility] (20 sources) Sulfonamides (Antibiotic); Translations: [SULFA (SULFONAMIDE ANTIBIOTICS)] Propensity to adverse reactions to drug (disorder) 09-06-[address] [facility] (20 sources) PHENYLEPHRINE- AIFENESIN; Translations: [PHENYLEPHRINE-G UAIFENESIN] Propensity to adverse reactions to drug (disorder) 09-06-[address] [facility] Repository (3 sources) OTHER; Translations: [OTHER] Propensity to adverse reactions (disorder) 09-06-20 05 [facility] (20 sources) oxyCODONE; Translations: [OXYCODONE] Drug Allergy 08-16-20 Intolerance, Mental Status Change [facility] (20 sources) bandaid adhes [Other] Propensity to adverse reactions 09-06-20 [facility] Work Phone: (20 sources) pseudoephr [Other] Propensity to adverse reactions 09-06-20 [facility] Work Phone: (13 sources) atorvastatin; Translations: [ATORVASTATIN CALCIUM] Drug Allergy 02-28-20 Unknown [facility] (13 sources) Cefaclor; Translations: [CEFACLOR] Drug Allergy 07-16-20 Unknown [facility] (13 sources) guaiFENesin; Translations: [GUAIFENESIN] Drug Allergy 07-16-20 Unknown [facility] (13 sources) Phenylephrine; Translations: [PHENYLEPHRINE] Drug Allergy 07-16-20 Unknown [facility] (13 sources) Phenylpropanolam ine; Translations: [PHENYLPROPANOLA MINE] Drug Allergy 07-16-20 Unknown [facility] (13 sources) Tetracycline (class of antibiotic); Translations: [TETRACYCLINES] Drug Allergy 07-16-20 Unknown [facility] (13 sources) Adhesive Tape-Silicones; Translations: [ADHESIVE TAPE-SILICONES] Drug Allergy 09-06-20 05 Rash [facility] Medications Current Medications Medication Drug Class(es) Dates Sig (Normalized) Sig (Original) atorvastatin 20 mg oral tablet (20 sources) HMG-CoA Reductase Inhibitor Start: 08-29-2022 End: 03-21-2024 take 1 tablet by mouth once daily at bedtime for hyperlipidemia atorvastatin (LIPITOR) 20 mg tablet Take 1 tablet by mouth daily at bedtime. For cholesterol. 90 tablet 1 09/23/2023 03/21/2024 Active Completed/Discontinued Medications Medication Drug Class(es) Dates Sig (Normalized) Sig (Original) amLODIPine 5 mg oral tablet (20 sources) Dihydropyridine Calcium Channel Zackery Start: 09-08-2019 End: 02-19-2023 take 1 tablet by mouth once daily amLODIPine (NORVASC) 5 mg tablet Take 1 tablet by mouth once daily. 90 tablet 3 02/19/2023 Active Problems Active Problems Problem Classification Problem Date Documented Date Episodic/Chronic Abdominal pain (1 source) Generalized abdominal pain; Translations: [Generalized abdominal pain] Episodic Anxiety disorders (20 sources) Chronic anxiety; Translations: [Anxiety disorder, unspecified] Onset: 0 02-09-2021 Chronic Chronic kidney disease (20 sources) Chronic kidney disease stage 3A ; Translations: [Stage 3a chronic kidney disease (HCC)] Onset: 7 Chronic Chronic kidney disease (1 source) Chronic kidney disease; Translations: [Hypertensive kidney disease with stage 3a chronic kidney disease (HCC)] Onset: 1 Coronary atherosclerosis and other heart disease (20 sources) Atherosclerotic heart disease of [place] coronary artery without angina pectoris; Translations: [Coronary atherosclerosis] Onset: 5 07-18-2016 Chronic Deficiency and other anemia (20 sources) Iron deficiency anemia due to blood loss; Translations: [Iron deficiency anemia secondary to blood loss (chronic)] Onset: 0 04-15-2023 Chronic Disorders of lipid metabolism (20 sources) Hyperlipidemia; Translations: [Hyperlipidemia, unspecified] Onset: 2 06-18-2013 Chronic E Codes: Fall (1 source) Fall; Translations: [Unspecified fall, subsequent encounter] Episodic Esophageal disorders (20 sources) Gastroesophageal reflux disease without esophagitis; Translations: [Gastro-esophageal reflux disease without esophagitis] Onset: 6 05-04-2016 Chronic Essential hypertension (20 sources) Hypertensive disorder; Translations: [Benign essential hypertension] Onset: 5 12-30-2014 Chronic Genitourinary symptoms and ill-defined conditions (1 source) Urgent desire to urinate; Translations: [Urgency of urination] 08-23-2023 Episodic Headache; including migraine (1 source) Headache; including migraine; Translations: [Temporal headache] Onset: 3 Heart valve disorders (20 sources) Nonrheumatic mitral (valve) prolapse; Translations: [Mitral valve prolapse] Onset: 1 07-18-2016 Chronic Hypertension with complications and secondary hypertension (20 sources) Chronic kidney disease stage 3 due to hypertension; Translations: [Hypertensive chronic kidney disease with stage 1 through stage 4 chronic kidney disease, or unspecified chronic kidney disease] Onset: 1 07-27-2021 Chronic Intracranial injury (1 source) Concussion with no loss of consciousness; Translations: [Concussion without loss of consciousness, subsequent encounter] Episodic Joint disorders and dislocations; trauma-related (20 sources) Derangement of medial meniscus; Translations: [Other meniscus derangements, unspecified medial meniscus, unspecified knee] Onset: 0 07-04-2010 Chronic Menopausal disorders (20 sources) Atrophic vaginitis; Translations: [Postmenopausal atrophic vaginitis] Onset: 4 11-16-2013 Chronic Miscellaneous mental health disorders (13 sources) Chronic insomnia; Translations: [Psychophysiologic insomnia] Onset: 1 Chronic Mood disorders (20 sources) Major depressive disorder, recurrent, moderate; Translations: [Recurrent major depressive episodes, moderate ] Onset: 7 Chronic Mycoses (2 sources) Candidiasis of mouth; Translations: [Candidal stomatitis] Onset: 3 07-29-2023 Episodic Nausea and vomiting (1 source) Nausea; Translations: [Nausea] 09-13-2023 Episodic Noninfectious gastroenteritis (20 sources) Collagenous colitis; Translations: [Collagenous colitis] Onset: 2 04-18-2012 Chronic Nonspecific chest pain (18 sources) Chest pain, unspecified; Translations: [Chest pain] Onset: 4 Resolved: 5 07-20-2015 Episodic Nutritional deficiencies (2 sources) Vitamin D deficiency; Translations: [Vitamin D deficiency, unspecified] Onset: 3 06-06-2023 Chronic Other aftercare (2 sources) Long-term current use of benzodiazepine; Translations: [Other nursing home (current) drug therapy] Episodic Other aftercare (1 source) Drug therapy finding; Translations: [Other nursing home (current) drug therapy] Episodic Other aftercare (2 sources) Long-term current use of immunosuppressive drug; Translations: [Long-term use of immunosuppressant medication] Episodic Other aftercare (1 source) meterman systemic steroid user; Translations: [[facility] (current) use of systemic steroids] Episodic Other aftercare (1 source) Post-discharge follow-up; Translations: [Encounter for follow-up examination after completed treatment for conditions other than malignant neoplasm] 09-04-2023 Episodic Other aftercare (1 source) Encounter for follow-up examination after completed treatment for conditions other than malignant neoplasm; Translations: [Hospital discharge follow-up] Onset: 3 Episodic Other bone disease and musculoskeletal deformities (1 source) Osteopenia; Translations: [Other specified disorders of bone density and structure, multiple sites] 10-07-2023 Episodic Other connective tissue disease (20 sources) Artificial knee joint present; Translations: [Presence of right artificial knee joint] Onset: 0 04-15-2023 Chronic Other endocrine disorders (2 sources) Primary hyperparathyroidism; Translations: [Primary hyperparathyroidism] 07-12-2023 Chronic Other endocrine disorders (1 source) Primary hyperparathyroidism; Translations: [Primary hyperparathyroidism (HCC)] Onset: 3 Chronic Other gastrointestinal disorders (1 source) Diarrhea; Translations: [Diarrhea, unspecified] Episodic Other gastrointestinal disorders (1 source) Enteropathic arthritis; Translations: [Disease of intestine, unspecified] Episodic Other inflammatory condition of skin (1 source) Erythema; Translations: [Erythematous condition, unspecified] Episodic Other injuries and conditions due to external causes (1 source) Closed injury of head; Translations: [Unspecified injury of head, subsequent encounter] Episodic Other non-traumatic joint disorders (2 sources) Multiple joint pain; Translations: [Pain in unspecified joint] Episodic Other nutritional; endocrine; and metabolic disorders (20 sources) Intestinal disaccharidase deficiency; Translations: [Lactose intolerance, unspecified] 01-07-2006 Chronic Other nutritional; endocrine; and metabolic disorders (4 sources) Hypercalcemia; Translations: [Hypercalcemia] Chronic Other nutritional; endocrine; and metabolic disorders (1 source) Hypercalcemia; Translations: [Hypercalcemia] Onset: 3 Chronic Other nutritional; endocrine; and metabolic disorders (1 source) Lactose intolerance, unspecified; Translations: [Intestinal disaccharidase deficiencies and disaccharide malabsorption] Onset: 6 Chronic Other upper respiratory infections (1 source) Upper respiratory infection; Translations: [Acute upper respiratory infection, unspecified] Episodic Regional enteritis and ulcerative colitis (20 sources) Ulcerative colitis; Translations: [Ulcerative colitis, unspecified, without complications] Onset: 5 Chronic Residual codes; unclassified (1 source) Past history of procedure; Translations: [Personal history of other medical treatment] 09-04-2023 Episodic Residual codes; unclassified (1 source) Personal history of other medical treatment; Translations: [History of nuclear stress test] Onset: 3 Episodic Rheumatoid arthritis and related disease (20 sources) Inflammatory polyarthropathy; Translations: [Inflammatory polyarthropathy] Onset: 3 Chronic Spondylosis; intervertebral disc disorders; other back problems (17 sources) Low back pain; Translations: [Lumbar pain] Onset: 3 08-01-2023 Episodic Systemic lupus erythematosus and connective tissue disorders (20 sources) Systemic lupus erythematosus; Translations: [Systemic lupus erythematosus, unspecified] Onset: 1 Chronic Unclassified (6 sources) Long-term drug therapy; Translations: [Other nursing home (current) drug therapy] Onset: 5 07-11-2015 Unclassified (1 source) Unknown / UNK(Unknown) Onset: 7 Unclassified (1 source) Long-term use of immunosuppressant medication; Translations: [Long-term use of immunosuppressant medication] Onset: 3 Unclassified (1 source) Lumbar pain; Translations: [Lumbar pain] Onset: 3 Past or Other Problems Problem Classification Problem Date Documented Da te Episodic/Chronic Administrative/social admission (20 sources) Patient encounter status; Translations: [Persons encountering health services in other specified circumstances] Onset: 07-11-2015 Episodic Cardiac dysrhythmias (8 sources) Palpitations; Translations: [Palpitations] Onset: 01-31-2011 01-31-2011 Episodic Complications of surgical procedures or medical care (20 sources) Dehiscence of surgical wound; Translations: [Disruption of external operation (surgical) wound, not elsewhere classified, subsequent encounter] Onset: 07-15-2020 04-15-2023 Episodic Fluid and electrolyte disorders (9 sources) Hypokalemia; Translations: [Hypokalemia] Onset: 02-09-2015 02-09-2015 Episodic Headache; including migraine (20 sources) Headache; Translations: [Headache] Onset: 11-17-2007 08-27-2017 Episodic Immunizations and screening for infectious disease (4 sources) Vaccination needed; Translations: [Encounter for immunization] Onset: 04-15-2023 Episodic Other aftercare (2 sources) Other nursing home (current) drug therapy; Translations: [Other nursing home (current) drug therapy] Onset: 07-11-2015 07-11-2015 Episodic Other aftercare (1 source) [facility] (current) use of systemic steroids; Translations: [meterman systemic steroid user] Onset: 04-15-2023 Episodic Other connective tissue disease (20 sources) Falls; Translations: [Repeated falls] Onset: 07-15-2020 04-15-2023 Episodic Other diseases of kidney and ureters (1 source) Disorder of kidney and ureter, unspecified; Translations: [Renal insufficiency] Onset: 06-05-2023 Episodic Other gastrointestinal disorders (20 sources) Constipation; Translations: [Constipation, unspecified] Onset: 07-15-2020 04-15-2023 Episodic Other lower respiratory disease (20 sources) Dyspnea; Translations: [Shortness of breath] Onset: 06-22-2014 Resolved: 07-20-2015 07-20-2015 Episodic Other non-traumatic joint disorders (1 source) Pain in unspecified joint; Translations: [Pain in joint, multiple sites] Onset: 04-15-2023 Episodic Residual codes; unclassified (10 sources) Family history of stroke; Translations: [Family history of stroke] Resolved: 07-20-2015 07-20-2015 Episodic Screening and history of mental health and substance abuse codes (20 sources) H/O: depression; Translations: [Personal history of other mental and behavioral disorders] Onset: 04-15-2023 04-15-2023 Episodic Unclassified (20 sources) FH: Hypertension; Translations: [Family history of stroke] Resolved: 07-20-2015 06-22-2014 Episodic Results Test Name Value Interpretation Reference Range Facil ity Vital Signs Date Time Vital Sign Value Performing Clinician Jamarcus lewis 09-03-2023 14:56-0500 Body height 170.2 cm NA Castaneda PA-C Work Phone: [facility] 09-03-2023 14:56-0500 Body weight 64.86 kg NA Castaneda PA-C Work Phone: [facility] 09-03-2023 14:56-0500 Diastolic blood pressure 72 mm[Hg] NA Castaneda PA-C Work Phone: [facility] 09-03-2023 14:56-0500 Heart rate 85 /min NA Castaneda PA-C Work Phone: [facility] 09-03-2023 14:56-0500 SaO2% (BldA) [Mass fraction] 95 % NA Castaneda PA-C Work Phone: [facility] 09-03-2023 14:56-0500 Systolic blood pressure 124 mm[Hg] NA Castaneda PA-C Work Phone: [facility] 08-23-2023 10:16-0400 Body temperature 97.39 [degF] Rufus Hester ROLLER LEVELER.CAN STACKER Work Phone: [facility] 08-23-2023 10:16-0400 Body weight 65.41 kg Rufus Hester ROLLER LEVELER.CAN STACKER Work Phone: [facility] 08-23-2023 10:16-0400 Diastolic blood pressure 76 mm[Hg] Rufus Hester ROLLER LEVELER.CAN STACKER Work Phone: [facility] 08-23-2023 10:16-0400 Heart rate 82 /min Rufus Hester ROLLER LEVELER.CAN STACKER Work Phone: [facility] 08-23-2023 10:16-0400 Respiratory rate 18 /min Rufus Hester ROLLER LEVELER.CAN STACKER Work Phone: [facility] 08-23-2023 10:16-0400 SaO2% (BldA) [Mass fraction] 93 % Rufus Hester ROLLER LEVELER.CAN STACKER Work Phone: [facility] 08-23-2023 10:16-0400 Systolic blood pressure 159 mm[Hg] Rufus Hester ROLLER LEVELER.CAN STACKER Work Phone: [facility] 08-01-2023 09:15-0400 Body weight 66.22 kg NA Castaneda PA-C Work Phone: [facility] 08-01-2023 09:15-0400 Diastolic blood pressure 80 mm[Hg] NA Castaneda PA-C Work Phone: [facility] 08-01-2023 09:15-0400 Heart rate 77 /min NA Castaneda PA-C Work Phone: [facility] 08-01-2023 09:15-0400 Respiratory rate 16 /min NA Castaneda PA-C Work Phone: [facility] 08-01-2023 09:15-0400 SaO2% (BldA) [Mass fraction] 96 % NA Castaneda PA-C Work Phone: [facility] 08-01-2023 09:15-0400 Systolic blood pressure 130 mm[Hg] NA Castaneda PA-C Work Phone: [facility] 07-29-2023 11:24-0400 Body temperature 99.19 [degF] Brian Vance ROLLER LEVELER.CAN STACKER Work Phone: [facility] 07-29-2023 11:24-0400 Body weight 65.32 kg Brian Vance ROLLER LEVELER.CAN STACKER Work Phone: [facility] 07-29-2023 11:24-0400 Diastolic blood pressure 70 mm[Hg] Brian Vance ROLLER LEVELER.CAN STACKER Work Phone: [facility] 07-29-2023 11:24-0400 Heart rate 78 /min Brian Vance ROLLER LEVELER.CAN STACKER Work Phone: [facility] 07-29-2023 11:24-0400 Respiratory rate 14 /min Brian Vance ROLLER LEVELER.CAN STACKER Work Phone: [facility] 07-29-2023 11:24-0400 Systolic blood pressure 138 mm[Hg] Brian Vance ROLLER LEVELER.CAN STACKER Work Phone: [facility] 07-12-2023 08:02-0400 Body weight 66.68 kg NA Castaneda PA-C Work Phone: [facility] 07-12-2023 08:02-0400 Diastolic blood pressure 76 mm[Hg] NA Castaneda PA-C Work Phone: [facility] 07-12-2023 08:02-0400 Heart rate 65 /min NA Castaneda PA-C Work Phone: [facility] 07-12-2023 08:02-0400 Respiratory rate 14 /min NA Castaneda PA-C Work Phone: [facility] 07-12-2023 08:02-0400 SaO2% (BldA) [Mass fraction] 96 % NA Castaneda PA-C Work Phone: [facility] 07-12-2023 08:02-0400 Systolic blood pressure 118 mm[Hg] NA Castaneda PA-C Work Phone: [facility] 04-15-2023 15:49-0400 Diastolic blood pressure 61 mm[Hg] Kaylin Clay MD Work Phone: [facility] 04-15-2023 15:49-0400 Heart rate 70 /min Kaylin Clay MD Work Phone: [facility] 04-15-2023 15:49-0400 Systolic blood pressure 123 mm[Hg] Kaylin Clay MD Work Phone: [facility] 04-15-2023 15:41-0400 Body height 170.2 cm Kaylin Clay MD Work Phone: [facility] 04-15-2023 15:41-0400 Body temperature 97.7 [degF] Kaylin Clay MD Work Phone: [facility] 04-15-2023 15:41-0400 Body weight 67.59 kg Kaylin Clay MD Work Phone: [facility] 04-15-2023 09:57-0400 Body height 167.6 cm NA Castaneda PA-C Work Phone: [facility] 04-15-2023 09:57-0400 Body weight 67.04 kg NA Castaneda PA-C Work Phone: [facility] 04-15-2023 09:57-0400 Diastolic blood pressure 72 mm[Hg] NA Castaneda PA-C Work Phone: [facility] 04-15-2023 09:57-0400 Heart rate 63 /min NA Castaneda PA-C Work Phone: [facility] 04-15-2023 09:57-0400 SaO2% (BldA) [Mass fraction] 97 % NA Castaneda PA-C Work Phone: [facility] 04-15-2023 09:57-0400 Systolic blood pressure 128 mm[Hg] NA Castaneda PA-C Work Phone: [facility] 01-08-2023 07:59-0400 Body weight 68.95 kg NA Castaneda PA-C Work Phone: [facility] 01-08-2023 07:59-0400 Diastolic blood pressure 70 mm[Hg] NA Castaneda PA-C Work Phone: [facility] 01-08-2023 07:59-0400 Heart rate 69 /min NA Castaneda PA-C Work Phone: [facility] 01-08-2023 07:59-0400 Respiratory rate 16 /min NA Castaneda PA-C Work Phone: [facility] 01-08-2023 07:59-0400 SaO2% (BldA) [Mass fraction] 96 % NA Castaneda PA-C Work Phone: [facility] 01-08-2023 07:59-0400 Systolic blood pressure 132 mm[Hg] OJSE Castaneda PA-C Work Phone: [facility] 08-27-2022 09:24-0400 Body height 168 cm Taylor Del Real MD Work Phone: [facility] 08-27-2022 09:24-0400 Body weight 68.67 kg Taylor Del Real MD Work Phone: [facility] 08-27-2022 09:24-0400 Diastolic blood pressure 74 mm[Hg] Taylor Del Real MD Work Phone: [facility] 08-27-2022 09:24-0400 Heart rate 66 /min Taylor Del Real MD Work Phone: [facility] 08-27-2022 09:24-0400 Respiratory rate 16 /min Taylor Del Real MD Work Phone: [facility] 08-27-2022 09:24-0400 SaO2% (BldA) [Mass fraction] 95 % Taylor Del Real MD Work Phone: [facility] 08-27-2022 09:24-0400 Systolic blood pressure 128 mm[Hg] Taylor Del Real MD Work Phone: [facility] 05-30-2022 09:21-0400 Body temperature 97.81 [degF] Sneha Kramerlogivett ROLLER LEVELER.CAN STACKER Work Phone: [facility] 05-30-2022 09:21-0400 Body weight 67.13 kg Sneha Kramerlogivett ROLLER LEVELER.CAN STACKER Work Phone: [facility] 05-30-2022 09:21-0400 Diastolic blood pressure 76 mm[Hg] Snhea Podlogivett ROLLER LEVELER.CAN STACKER Work Phone: [facility] 05-30-2022 09:21-0400 Heart rate 67 /min Sneha Kramerlogivett ROLLER LEVELER.CAN STACKER Work Phone: [facility] 05-30-2022 09:21-0400 Respiratory rate 18 /min Sneha Podlogar ROLLER LEVELER.CAN STACKER Work Phone: [facility] 05-30-2022 09:21-0400 SaO2% (BldA) [Mass fraction] 96 % Sneha Podlogar ROLLER LEVELER.CAN STACKER Work Phone: [facility] 05-30-2022 09:21-0400 Systolic blood pressure 118 mm[Hg] Sneha Podlogar ROLLER LEVELER.CAN STACKER Work Phone: [facility] 05-02-2022 17:39-0400 Diastolic blood pressure 70 mm[Hg] Sneha Podlogar ROLLER LEVELER.CAN STACKER Work Phone: [facility] 05-02-2022 17:39-0400 Systolic blood pressure 136 mm[Hg] Sneha Podlogar ROLLER LEVELER.CAN STACKER Work Phone: [facility] 05-02-2022 17:00-0400 Body weight 68.31 kg Sneha Podlogar ROLLER LEVELER.CAN STACKER Work Phone: [facility] 05-02-2022 17:00-0400 Heart rate 71 /min Sneha Podlogar ROLLER LEVELER.CAN STACKER Work Phone: [facility] 05-02-2022 17:00-0400 Respiratory rate 20 /min Sneha Podlogar ROLLER LEVELER.CAN STACKER Work Phone: [facility] 05-02-2022 17:00-0400 SaO2% (BldA) [Mass fraction] 99 % Sneha Podlogar ROLLER LEVELER.CAN STACKER Work Phone: [facility] 03-25-2022 14:37-0400 Body temperature 97.7 [degF] Glory Eros ROLLER LEVELER.CAN STACKER Work Phone: [facility] 03-25-2022 14:37-0400 Body weight 66.77 kg Glory Eros ROLLER LEVELER.CAN STACKER Work Phone: [facility] 03-25-2022 14:37-0400 Diastolic blood pressure 86 mm[Hg] Glory Eros ROLLER LEVELER.CAN STACKER Work Phone: [facility] 03-25-2022 14:37-0400 Heart rate 74 /min Glory Cooney APRN.CAN STACKER Work Phone: [facility] 03-25-2022 14:37-0400 Respiratory rate 20 /min Glory Cooney ROLLER LEVELER.CAN STACKER Work Phone: [facility] 03-25-2022 14:37-0400 SaO2% (BldA) [Mass fraction] 100 % Glory Cooney ROLLER LEVELER.CAN STACKER Work Phone: [facility] 03-25-2022 14:37-0400 Systolic blood pressure 124 mm[Hg] Glory Cooney ROLLER LEVELER.CAN STACKER Work Phone: [facility] 02-13-2022 10:33-0400 Body temperature 98.01 [degF] Narayan Gilbert APRN.CAN STACKER, DNP Work Phone: [facility] 02-13-2022 10:33-0400 Body weight 66.22 kg Naaryan Gilbert APRN.CAN STACKER, DNP Work Phone: [facility] 02-13-2022 10:33-0400 Diastolic blood pressure 70 mm[Hg] Narayan Gilbert APRN.CAN STACKER, DNP Work Phone: [facility] 02-13-2022 10:33-0400 Heart rate 82 /min Narayan Gilbert APRN.CAN STACKER, DNP Work Phone: [facility] 02-13-2022 10:33-0400 Respiratory rate 14 /min Narayan Gilbert APRN.CAN STACKER, DNP Work Phone: [facility] 02-13-2022 10:33-0400 SaO2% (BldA) [Mass fraction] 100 % Narayan Gilbert APRN.CAN STACKER, DNP Work Phone: [facility] 02-13-2022 10:33-0400 Systolic blood pressure 132 mm[Hg] Narayan Gilbert APRN.CAN STACKER, DNP Work Phone: [facility] 01-25-2022 10:20-0400 Body weight 67.13 kg Narayan Gilbert APRN.CAN STACKER, DNP Work Phone: [facility] 01-25-2022 10:20-0400 Diastolic blood pressure 72 mm[Hg] Narayan Gilbert APRN.CAN STACKER, DNP Work Phone: [facility] 01-25-2022 10:20-0400 Heart rate 71 /min Narayan Gilbert APRN.CAN STACKER, DNP Work Phone: [facility] 01-25-2022 10:20-0400 Respiratory rate 14 /min Narayan Gilbert APRN.CAN STACKER, DNP Work Phone: [facility] 01-25-2022 10:20-0400 SaO2% (BldA) [Mass fraction] 100 % Narayan Gilbert APRN.CAN STACKER, [facility] Work Phone: [facility] 01-25-2022 10:20-0400 Systolic blood pressure 120 mm[Hg] Narayan Gilbert APRN.CAN STACKER, [facility] Work Phone: [facility] 07-23-2017 10:02-0400 BMI (Body Mass Index) 22.8 kg/m2 [facility] Work Phone: 07-23-2017 10:02-0400 BP Diastolic 60 mm[Hg] [facility] Work Phone: 07-23-2017 10:02-0400 BP Systolic 120 mm[Hg] [facility] Work Phone: 07-23-2017 10:02-0400 Height 172.72 cm [facility] Work Phone: 07-23-2017 10:02-0400 Pulse (Heart Rate) 64 /min [facility] Work Phone: 07-23-2017 10:02-0400 Respiratory Rate 20 /min [facility] Work Phone: 07-23-2017 10:02-0400 Weight 68.04 kg [facility] Work Phone: 07-19-2016 08:50-0400 BMI (Body Mass Index) 23.72 kg/m2 Candi [facility] Work Phone: 07-19-2016 08:50-0400 BP Diastolic 62 mm[Hg] Emeryumi [facility] Work Phone: 07-19-2016 08:50-0400 BP Systolic 120 mm[Hg] Emeryumi DeFinis [facility] Work Phone: 07-19-2016 08:50-0400 BSA (Body Surface Area) 1.84 m2 Emeryumi De[facility] Work Phone: 07-19-2016 08:50-0400 Height 172.72 cm Emeryumi De[facility] Work Phone: 07-19-2016 08:50-0400 Pulse (Heart Rate) 88 /min Harumi [facility] Work Phone: 07-19-2016 08:50-0400 Respiratory Rate 18 /min Candi De[facility] Work Phone: 07-19-2016 08:50-0400 Weight 70.76 kg Candi DeFin[facility] Work Phone: 06-18-2013 09:25-0400 Height 172.72 cm Candi De[facility] Work Phone: 06-18-2013 09:25-0400 [facility] Work Phone: Encounters Encounter Date Encounter Type Care Provider Facility Start: 10-08-2023 Brooke Clay MD Work Phone: Rheumatology Procedures Date Procedure Procedure Detail Performing Clinician Start: 08-23-2023 Urnls dip stick/tablet rgnt auto w/o microscopy Mitchell Ford APRN.CAN STACKER Work Phone: Start: 08-13-2023 Radex spine lumbosacral 2/3 views [facility] Provider Start: 07-29-2023 Us soft tissue head & neck real time imge jaelyn Castaneda PA-C Work Phone: Start: 07-27-2023 INFLUENZA VACCINE, PRSV FREE, AGE 65+ YR, HIGH DOSE, QUADRIVALENT (FLUZONE HIGH-DOSE) Tahir Conte MD Work Phone: Start: 06-18-2023 Dxa bone density study 1/> sites axial skel Kaylin Clay MD Work Phone: Start: 08-27-2022 Drug tst prsmv instrmnt chem analyzers pr date Taylor Del Real MD Work Phone: Start: 07-15-2020 H/O: artificial joint Aftercare following joint replacement surgery Kaylin Clay MD Work Phone: Start: 08-20-2017 End: 08-22-2017 *BMP Yousuf Montiel INDUSTRIAL MACHINE OPERATOR Work Phone: Start: 08-12-2017 End: 08-12-2017 *BMP Yousuf Montiel INDUSTRIAL MACHINE OPERATOR Work Phone: Start: 08-08-2017 End: 08-09-2017 *BMP Lacy Medina PA-C Work Phone: Start: 07-10-2017 End: 07-29-2017 *Hepatic Function Panel Giancarlo Rodriguez Start: 07-10-2017 End: 07-29-2017 Lipid 1996 panel - Serum or Plasma Fco Cardona MD Start: 07-10-2017 End: 07-18-2017 *Hepatic Function Panel Giancarlo Rodriguez Start: 07-10-2017 End: 07-18-2017 Lipid panel [AGGREGATE] Giancarlo Rodriguez Start: 08-17-2015 End: 08-17-2015 *JOHNNY Cardona MD Start: 08-17-2015 End: 08-17-2015 *JOHNNY Cardona MD Start: 07-21-2015 End: 07-21-2015 AMNA Cardona MD Start: 07-21-2015 End: 07-21-2015 Follow Up Appt 1 year Fco Cardona MD Start: 07-21-2015 End: 07-21-2015 AMNA Cardona MD Start: 07-21-2015 End: 07-21-2015 Follow Up Appt 1 year Fco Cardona MD Start: 02-28-2015 End: 03-15-2015 *JOHNNY Medina PA-C Work Phone: Start: 02-28-2015 End: 03-15-2015 *JOHNNY Medina PA-C Work Phone: Start: 02-10-2015 End: 02-10-2015 Follow Up BP Check Fco Cardona MD Start: 02-10-2015 End: 02-10-2015 Nurse, Teaching, Wound Check (no charge) Fco Cardona MD Start: 02-10-2015 End: 02-10-2015 Follow Up BP Check Fco Cardona MD Start: 02-10-2015 End: 02-10-2015 Nurse, Teaching, Wound Check (no charge) Fco Cardona MD Start: 02-09-2015 End: 02-10-2015 *JOHNNY Medina PA-C Work Phone: Start: 02-09-2015 End: 02-10-2015 *JOHNNY Medina PA-C Work Phone: Start: 12-30-2014 End: 12-30-2014 AMNA Medina PA-C Work Phone: Start: 12-30-2014 End: 12-31-2014 Documentation of current medications Lacy Medina PA-C Work Phone: Start: 12-30-2014 End: 12-30-2014 Follow Up Appt 6 months Lacy alvarado PA-C Work Phone: Start: 12-30-2014 End: 12-30-2014 SOLE INKER Lacy Medina PA-C Work Phone: Start: 12-30-2014 End: 12-31-2014 Documentation of current medications Lacy Medina PA-C Work Phone: Start: 12-30-2014 End: 12-30-2014 Follow Up Appt 6 months Lacy alvarado PA-C Work Phone: Start: 12-20-2014 End: 12-28-2014 *JOHNNY Cardona MD Start: 12-20-2014 End: 12-28-2014 *JOHNNY Cardona MD Start: 10-27-2014 End: 10-29-2014 *JOHNNY Cardona MD Start: 10-27-2014 End: 10-29-2014 CBC W Auto Differential panel - Blood Fco Cardona MD Start: 10-27-2014 End: 12-03-2014 Follow Up Appt 6 months Giancarlo Rodriguez Start: 10-27-2014 End: 10-29-2014 Left Heart Cath Fco Cardona MD Start: 10-27-2014 End: 12-03-2014 MMM Fco Cardona MD Start: 10-27-2014 End: 10-29-2014 *JOHNNY Cardona MD Start: 10-27-2014 End: 10-29-2014 CBC W Auto Differential panel - Blood Fco Cardona MD Start: 10-27-2014 End: 12-03-2014 Follow Up Appt 6 months Giancarlo Rodriguez Start: 10-27-2014 End: 10-29-2014 Left Heart Cath Fco Cardona MD Start: 10-27-2014 End: 12-03-2014 LUCIE Cardona MD Start: 06-22-2014 End: 06-30-2014 Echocardiography Fco Cardona MD Start: 06-22-2014 End: 06-22-2014 Follow Up Appt 6 months Giancarlo Rodriguez Start: 06-22-2014 End: 06-22-2014 LUCIE Cardona MD Start: 06-22-2014 End: 06-22-2014 Natriuretic peptide B [Mass/volume] in Blood Fco Cardona MD Start: 06-22-2014 End: 06-22-2014 Thyrotropin [Units/volume] in Serum or Plasma Fco Cardona MD Start: 06-22-2014 End: 06-22-2014 Thyroxine (T4) [Mass/volume] in Serum or Plasma Fco Cardona MD Start: 06-22-2014 End: 06-30-2014 Echocardiography Fco Cardona MD Start: 06-22-2014 End: 06-22-2014 Follow Up Appt 6 months Giancarlo Rodriguez Start: 06-22-2014 End: 06-22-2014 LUCIE Cardona MD Start: 06-22-2014 End: 06-22-2014 Thyroid stimulating hormone (TSH) Fco Cardona MD Start: 06-22-2014 End: 06-22-2014 Thyroxine (T4) Fco Cardona MD Start: 05-28-2014 End: 07-01-2014 *Hepatic Function Panel Giancarlo Rodriguez Start: 05-28-2014 End: 07-01-2014 Lipid 1996 panel - Serum or Plasma Fco Cardona MD Start: 05-28-2014 End: 07-01-2014 *Hepatic Function Panel Giancarlo Rodriguez Start: 05-28-2014 End: 07-01-2014 BNP Fco Cardona MD Start: 06-18-2013 End: 06-21-2013 *BMP Fco Cardona MD Start: 06-18-2013 End: 06-18-2013 SOLE INKERBrigette Cardona MD Start: 06-18-2013 End: 06-18-2013 Follow Up Appt 1 year Fco Cardona MD Start: 06-18-2013 End: 06-21-2013 Lipid 1996 panel - Serum or Plasma Fco Cardona MD Start: 06-18-2013 End: 06-19-2013 Thyrotropin [Units/volume] in Serum or Plasma Fco Cardona MD Start: 06-18-2013 End: 06-21-2013 *BMP Fco Cardona MD Start: 06-18-2013 End: 06-18-2013 SOLE INKER Fco Cardona MD Start: 06-18-2013 End: 06-18-2013 Follow Up Appt 1 year Fco Cardona MD Start: 06-18-2013 End: 06-21-2013 Lipid panel [AGGREGATE] Giancarlo Rodriguez Start: 05-30-2012 End: 05-30-2012 Follow Up Appt 1 year Fco Cardona MD Start: 05-30-2012 End: 05-30-2012 Follow Up Appt 1 year Fco Cardona MD Plan of Treatment Date Care Activity Detail Author Start: 10-03-2026 Diabetes Screening Diabetes Screenin g [facility] Start: 09-03-2026 Diabetes Screening Diabetes Screenin g [facility] Start: 06-05-2026 DIABETES SCREEN DIABETES SCREEN [facility] Start: 06-05-2026 Diabetes Screening Diabetes Screenin g [facility] Start: 04-08-2026 DIABETES SCREEN DIABETES SCREEN [facility] Start: 08-29-2025 Urine microalbumin profile [facility] Start: 08-27-2025 DIABETES SCREEN DIABETES SCREEN [facility] Start: 02-13-2025 DIABETES SCREEN DIABETES SCREEN [facility] Start: 10-03-2024 Complete blood count Hemoglobin/Moustapha tocrit [facility] Start: 10-03-2024 Creatinine measurement Serum Creatin ine [facility] Start: 10-03-2024 Hemoglobin/Hematocrit Hemoglobin/Hem [facility] Start: 10-03-2024 Hepatitis B surface antibody level LDL Cholesterol [facility] Start: 10-03-2024 Serum Creatinine Serum Creatinine [facility] Start: 09-26-2024 Hemoglobin/Hematocrit Hemoglobin/Hem [facility] Start: 09-26-2024 Serum Creatinine Serum Creatinine [facility] Start: 09-03-2024 Annual PCP Team Staff Weapons Officer anam Disease Visit Annual PCP Team Chronic Disease Visit [facility] Start: 09-03-2024 BP Controlled (<130/80) BP Controlle d (<130/80) [facility] Start: 09-03-2024 Serum Creatinine Serum Creatinine [facility] Start: 08-01-2024 Annual PCP Team Staff Weapons Officer anam Disease Visit Annual PCP Team Chronic Disease Visit [facility] Start: 07-29-2024 Annual PCP Team Staff Weapons Officer anam Disease Visit Annual PCP Team Chronic Disease Visit [facility] Start: 07-19-2024 Annual PCP Team Staff Weapons Officer anam Disease Visit Annual PCP Team Chronic Disease Visit [facility] Start: 07-12-2024 Annual PCP Team Staff Weapons Officer anam Disease Visit Annual PCP Team Chronic Disease Visit [facility] Start: 07-12-2024 BP Controlled (<130/80) BP Controlle d (<130/80) [facility] Start: 07-12-2024 Covid-19 Vaccine ( season) Covid-19 Vaccine ( season) [facility] Immunizations Immunization Date Immunization Notes Care Provider Fa nata 07-27-2023 influenza (HD-IIV4) vaccine, age 65+ yr, high dose, quadrivalent, PF (FLUZONE HIGH-DOSE) Immunization Roland Work Phone: [facility] 04-15-2023 hepatitis A vaccine, adult dosage Kaylin Clay MD Work Phone: [facility] 04-15-2023 hepatitis B vaccine, adult dosage Kaylin Clay MD Work Phone: [facility] 10-04-2022 hepatitis A and hepatitis B vaccine Ut Nurse Work Phone: [facility] Work Phone: 10-04-2022 hepatitis B vaccine, unspecified formulation Mi Nurse Work Phone: [facility] 08-30-2022 hepatitis A and hepatitis B vaccine Ut Nurse Work Phone: [facility] Work Phone: 08-30-2022 hepatitis B vaccine, unspecified formulation Taylor Del Real MD Work Phone: [facility] 08-29-2022 hepatitis A and hepatitis B vaccine Taylor Del Real MD Work Phone: [facility] Work Phone: 08-15-2022 influenza (aIIV4) vaccine, age 65+ yr, quadrivalent, PF (FLUAD QUADRIVALENT) Taylor Del Real MD Work Phone: [facility] Work Phone: 08-15-2022 influenza virus vaccine, unspecified formulation Kaylin Clay MD Work Phone: [facility] 08-09-2021 influenza (aIIV4) vaccine, age 65+ yr, quadrivalent, PF (FLUAD QUADRIVALENT) Taylor Del Real MD Work Phone: [facility] Work Phone: 12-20-2020 COVID-19 vaccine, fu ll dose (MODERNA) Narayan Gilbert APRN.[facility] Work Phone: [facility] 11-22-2020 COVID-19 vaccine, fu ll dose (MODERNA) Narayan Gilbert APRN.[facility] Work Phone: [facility] 08-16-2020 influenza, high-dose , quadrivalent vaccine (FLUZONE HIGH DOSE QUADRIVALENT) Narayan Gilbert APRN.[facility] Work Phone: [facility] 08-04-2019 influenza, high dose seasonal, preservative-free Narayan Gilbert APRN.[facility] Work Phone: [facility] 07-10-2019 influenza virus vaccine, unspecified formulation Narayan Gilbert APRN.[facility] Work Phone: [facility] Work Phone: 07-26-2018 influenza, high dose seasonal, preservative-free Narayan Gilbert APRN.[facility] Work Phone: [facility] 08-03-2017 influenza, high dose seasonal, preservative-free Narayan Gilbert APRN.[facility] Work Phone: [facility] Work Phone: 07-20-2016 influenza, high dose seasonal, preservative-free Narayan Gilbert APRN.[facility] Work Phone: [facility] 08-29-2015 pneumococcal conjuga te vaccine, 13 valent Narayan Gilbert APRN.[facility] Work Phone: [facility] 08-29-2015 tetanus and diphther ia toxoids, adsorbed, preservative free, for adult use (5 Lf of tetanus toxoid and 2 Lf of diphtheria toxoid) Narayan Gilbert APRN.[facility] Work Phone: [facility] 07-30-2015 influenza, high dose seasonal, preservative-free Narayan Gilbert APRN.[facility] Work Phone: [facility] 09-17-2014 pneumococcal polysaccharide vaccine, 23 valent Narayan Gilbert APRN.[facility] Work Phone: [facility] 08-04-2014 influenza, seasonal, injectable Narayan Gilbert APRN.[facility] Work Phone: [facility] Work Phone: 08-22-2013 influenza virus vaccine, unspecified formulation Narayan Gilbert APRN.[facility] Work Phone: [facility] Work Phone: 10-23-2012 zoster vaccine, live Narayan Gilbert APRN.[facility] Work Phone: [facility] 07-26-2012 influenza virus vaccine, unspecified formulation Narayan Gilbert APRN.[facility] Work Phone: [facility] 07-28-2011 influenza virus vaccine, unspecified formulation Narayan Gilbert APRN.[facility] Work Phone: [facility] Work Phone: 10-28-2009 pneumococcal polysaccharide vaccine, 23 valent Kaylin Clay MD Work Phone: [facility] 09-06-2009 novel [id number], all formulations Narayan Gilbert APRN.[facility] Work Phone: [facility] 07-23-2009 influenza virus vaccine, unspecified formulation Narayan Gilbert APRN.[facility] Work Phone: [facility] Work Phone: 09-01-2008 influenza virus vaccine, unspecified formulation Narayan Gilbert APRN.[facility] Work Phone: [facility] Work Phone: 11-23-2004 diphtheria and tetan us toxoids, adsorbed for pediatric use Narayan Gilbert APRN.[facility] Work Phone: [facility] Work Phone: 11-23-2004 measles, mumps and rubella virus vaccine Narayan Gilbert APRN.CAN STACKER, DNP Work Phone: [facility] Work Phone: Payers Date Payer Category Payer Medicare [employer] [place] [place] [id number] 2020-Present [phone] [address] [place] [address] HMO [id number] 2020 Medicare [employer] [place] [id number] 2020-Present [phone] [address] [place] [address] HMO [id number] 2020 Medicare [id number] Social History Date Type Detail Facility Start: 05-21-2012 End: 08-27-2022 Tobacco smoking status NHIS Ex-smoker [facility] Start: 12-21-2021 End: 09-03-2023 Alcohol intake Current drinker of alcohol (finding) [facility] Start: 09-21-2020 End: 01-06-2023 History SDOH Alcohol Frequency 1 [facility] Start: 06-12-2020 History SDOH Alcohol Std Drinks 98 [facility] Start: 09-21-2020 End: 01-06-2023 History SDOH Social Connections Phone 2 [facility] Start: 06-12-2020 End: 01-06-2023 History SDOH Social Connections Living 5 [facility] Start: 06-12-2020 End: 01-06-2023 History SDOH Physical Activity DPW 0 [facility] Start: 06-12-2020 End: 01-06-2023 History SDOH Stress 3 [facility] Start: 06-12-2020 Education 21 [facility] Start: 1940 Sex Assigned At Not on file [facility] Start: 02-02-2022 End: 08-27-2022 Exposure to SARS-CoV-2 (event) Not sure [facility] Start: 05-19-2022 End: 05-29-2022 Exposure to SARS-CoV-2 (event) Unable to assess [facility] Work Phone: End: 10-28-1996 History of tobacco use Current smoker [facility] Work Phone: Start: 05-21-2012 End: 08-27-2022 Tobacco use and exposure Smokeless tobacco non-user [facility] Work Phone: End: 10-28-1996 History of tobacco use Cigarette Smoker [facility] Work Phone: Start: 08-27-2022 End: 04-15-2023 Cigarettes smoked current (pack per day) - Reported 1 [facility] Start: 01-06-2023 History SDOH Financial 4 [facility] Start: 01-06-2023 End: 04-15-2023 Social connection and isolation panel [facility] Do you belong to any clubs or organizations such as yarsanism groups, unions, fraternal or athletic groups, or school groups? No [facility] Are you now , , , , never or living with a partner? [facility] How often to you hav e a drink containing alcohol? Never [facility] How many standard dr inks containing alcohol do you have on a typical day? Patient does not drink [facility] How hard is it for y ou to pay for the very basics like food, housing, medical care, and heating Not very hard [facility] Do you feel stress - tense, restless, nervous, or anxious, or unable to sleep at night because your mind is troubled all the time - these days [OSQ] Not at all [facility] (I/We) worried whedebra er (my/our) food would run out before (I/we) got money to buy more. Never true [facility] Medical Equipment Procedure Code Equipment Code Equipment Origin al Text Equipment Identifier Dates Use once weekly with methotrexate injections Start: 04-15-2023 End: 09-03-2023 Clinical Notes 11-12-2012 to 10-08-2023 Telephone Encounter - Shae Johnston MA - 10/08/2023 12:48 PM Kaylin Connelly MD - 10/07/2023 11:47 AM ESTTelephone Encounter - Shae Johnston MA - 10/07/2023 8:18 AM ESTPatient Instructions Note Date & Type Note Facility 10-08-2023 Miscellaneous Notes Patient has been identified by name and date of : Yes RX INSTRUCTIONS: Patient aware RX will be sent to pharmacy. No need to notify patient. LAST APPOINTMENT: 04/15/2023 UPCOMING APPOINTMENT: 01/17/2024 LABS: Hemoglobin (g/dL) Date Value 10/03/2023 12.5 08/26/2020 12.7 Hematocrit (%) Date Value 10/03/2023 38.7 08/26/2020 39.4 WBC (k/uL) Date Value 10/03/2023 9.38 08/26/2020 6.34 Platelet Count (k/uL) Date Value 10/03/2023 239 08/26/2020 278 AST Date Value Ref Range Status 10/03/2023 19 13 - 35 U/L Final ALT Date Value Ref Range Status 10/03/2023 14 7 - 38 U/L Final Creatinine Date Value Ref Range Status 10/03/2023 0.98 (H) 0.58 - 0.96 mg/dL Final No results found for: URICACID Shae Johnston MA documented in this encounter [facility] 10-07-2023 Note HNO ID: [id number] Author: Kaylin Clay MD Service: ? Author Type: Physician Type: Progress Notes Filed: 10/07/2023 12:21 PM Note Text: On 10/07/2023, I had the pleasure of evaluating Dina Hester in a follow-up [facility] Rheumatology appointment for joint pain. This Team Access Model visit is a virtual encounter utilizing both video and audio components. It required patient-provider interaction for the medical decision making as documented below. My name and active licensure have been communicated. The patient's identity and physical location were verified at the time of this visit. Either the patient or their legal telecommunications sales representative has been informed of the risks and benefits of -- and alternatives to -- treatment through a remote evaluation and consents to proceed with the evaluation remotely. HPI: To review, Dina Hester is a 82 year old female - Hx of miscarriage at 5 months and 3 months. 2 biological children. No hx of DVT or PE - Around , diagnosed with UC. In the past, treated with SSZ which was stopped for rash. Never on a biologic with injection or infusion. - In , noted progressive joint pain - [facility], initially in Jun with a history of UC-related arthritis per documentation. Diagnosed with lupus per report. Had been on MTX 15mg PO weekly (along with leucovorin) with headache and n/v since at least mid. Initially helped, higher dose of 7 tabs/week caused nausea, VILLAVICENCIO and malaise so reduced to 6 tabs/weeks. Joint pain is 50-60% improved with MTX as compared to before - Dr. Guerrero notes past hx of HCQ 300mg/day, but she doesn't recall ever being on this. - In February, advised by Dr. Higgins to continue MTX 15mg PO weekly and gabapentin - In Mar, reported intermittent flares manifesting with diarrhea and increased joint pain all responsive to prednisone (takes 10mg/day x3 days prn). Joint pain is located in the R shoulder, R elbow, R wrist and R knee. Advised to switch to MTX SC but unable to ever get this so has stayed on the PO - Today, reports intermittently feeling tired, nauseous, headache that she wonders if due to depression. - No jaw pain, recent/future plans for tooth extraction. PAST MEDICAL HISTORY Diagnosis Date Atherosclerotic heart disease of [place] coronary artery without angina pectoris Dr. Cardona Cholelithiases Collagenous colitis 04/18/2012 DDD (degenerative disc disease), cervical Dr. Meredith Essential hypertension, benign History of left heart catheterization 10/29/[address] Cardona History of tobacco use Hyperlipidemia LDL goal < 100 04/25/2012 Hypokalemia 11/12/2012 Intestinal disaccharidase deficiencies and disaccharide malabsorption Major depressive disorder, single episode, unspecified Mitral valve disorders(424.0) Other chondrocalcinosis, left knee Systemic lupus erythematosus (HCC) Dr. Higgins Ulcerative colitis without complications (HCC) 08/29/2015 Unilateral primary osteoarthritis, left knee GERD Depression/anxiety PAST SURGICAL HISTORY Procedure Laterality Date ARTHROSCOPY KNEE DIAGNOSTIC W/WO SYNOVIAL BX SPX Left 03/07/2018 [facility]-Dr. Viveros ARTHRP KNE CONDYLEANDPLATU MEDIALANDLAT COMPARTMENTS Right 07/14/2020 right total knee COLONOSCOPY FLX DX W/COLLJ SPEC WHEN PFRMD 04/18/2011 Colonoscopy COLONOSCOPY FLX DX W/COLLJ SPEC WHEN PFRMD 05/17/2016 Colonoscopy ESOPHAGOGASTRODUODENOSCOPY TRANSORAL DIAGNOSTIC 11/07/2016 EGD LAPAROSCOPY SURG CHOLECYSTECTOMY 10/17/2011 Cholecystectomy, lap LIG/TRNSXJ FLP TUBE ABDL/VAG APPR UNI/BI Tubal ligation RMVL LENS MATERIAL PHACOFRAGMENTATION ASPIR 08/2009 Cataract Extraction, right eye TONSILLECTOMY AND ADENOIDECTOMY TOTAL ABDOMINAL HYSTERECT W/WO RMVL TUBE OVARY Hysterectomy, GENE ALLERGIES Allergen Reactions Abilify [Aripiprazo* Mental Status Change Adhesive Tape-Silic* Rash Band Aid Atorvastatin Calcium Unknown Biaxin [Clarithromy* Cefaclor Unknown Darvon [Propoxyphen* Entex La [Phenyleph* Erythromycin Guaifenesin Unknown Oxycodone Mental Status Change Hallucinating Phenylephrine Unknown Phenylpropanolamine Unknown Pseudoephr [Other] Sulfa (Sulfonamide * Tetracyclines Unknown Vicodin [Hydrocodon* itching MEDICATIONS: Current Outpatient Medications Medication Sig atorvastatin (LIPITOR) 20 mg tablet Take 1 tablet by mouth daily at bedtime. For cholesterol. ondansetron (ZOFRAN) 4 mg tablet Take 1 tablet by mouth every 12 hours as needed for nausea/vomiting. methotrexate 2.5 mg tablet Take 6 tablets by mouth one time a week. cholecalciferol, Vitamin D3, (VITAMIN D3) 1,250 mcg (50,000 unit) cap capsule Take 1 capsule by mouth one time a week. aspirin, enteric coated (ASPIRIN, ENTERIC COATED) 81 mg EC tablet Take 81 mg by mouth daily with breakfast. gabapentin (NEURONTIN) 100 mg capsule Take 1 capsule by asa (more content not included)... [facility] 10-07-2023 History of Present illness Narrative On 10/07/2023, I had the pleasure of evaluating Dina Hester in a follow-up [facility] appointment for joint pain. This Team Access Model visit is a virtual encounter utilizing both video and audio components. It required patient-provider interaction for the medical decision making as documented below. My name and active licensure have been communicated. The patient's identity and physical location were verified at the time of this visit. Either the patient or their legal telecommunications sales representative has been informed of the risks and benefits of -- and alternatives to -- treatment through a remote evaluation and consents to proceed with the evaluation remotely. HPI: To review, Dina Hester is a 82 year old female - Hx of miscarriage at 5 months and 3 months. 2 biological children. No hx of DVT or PE - Around , diagnosed with UC. In the past, treated with SSZ which was stopped for rash. Never on a biologic with injection or infusion. - In , noted progressive joint pain - Se[facility] by [facility] Enma [facility], initially in Jun with a history of UC-related arthritis per documentation. Diagnosed with lupus per report. Had been on MTX 15mg PO weekly (along with leucovorin) with headache and n/v since at least mid-. Initially helped, higher dose of 7 tabs/week caused nausea, VILLAVICENCIO and malaise so reduced to 6 tabs/weeks. Joint pain is 50-60% improved with MTX as compared to before - Dr. Guerrero notes past hx of HCQ 300mg/day, but she doesn't recall ever being on this. - In February, advised by Dr. Higgins to continue MTX 15mg PO weekly and gabapentin - In Mar, reported intermittent flares manifesting with diarrhea and increased joint pain all responsive to prednisone (takes 10mg/day x3 days prn). Joint pain is located in the R shoulder, R elbow, R wrist and R knee. Advised to switch to MTX SC but unable to ever get this so has stayed on the PO - Today, reports intermittently feeling tired, nauseous, headache that she wonders if due to depression. - No jaw pain, recent/future plans for tooth extraction. PAST MEDICAL HISTORY Diagnosis Date Atherosclerotic heart disease of [place] coronary artery without angina pectoris Dr. Cardona Cholelithiases Collagenous colitis 04/18/2012 DDD (degenerative disc disease), cervical Dr. Meredith Essential hypertension, benign History of left heart catheterization 10/29/[address] Cardona History of tobacco use Hyperlipidemia LDL goal < 100 04/25/2012 Hypokalemia 11/12/2012 Intestinal disaccharidase deficiencies and disaccharide malabsorption Major depressive disorder, single episode, unspecified Mitral valve disorders(424.0) Other chondrocalcinosis, left knee Systemic lupus erythematosus (HCC) Dr. Higgins Ulcerative colitis without complications ([facility]) 08/29/2015 Unilateral primary osteoarthritis, left knee GERD Depression/anxiety PAST SURGICAL HISTORY Procedure Laterality Date ARTHROSCOPY KNEE DIAGNOSTIC W/WO SYNOVIAL BX SPX Left 03/07/2018 [facility]-Dr. Viveros ARTHRP KNE CONDYLE&PLATU MEDIAL&LAT COMPARTMENTS Right 07/14/2020 right total knee COLONOSCOPY FLX DX W/COLLJ SPEC WHEN PFRMD 04/18/2011 Colonoscopy COLONOSCOPY FLX DX W/COLLJ SPEC WHEN PFRMD 05/17/2016 Colonoscopy ESOPHAGOGASTRODUODENOSCOPY TRANSORAL DIAGNOSTIC 11/07/2016 EGD LAPAROSCOPY SURG CHOLECYSTECTOMY 10/17/2011 Cholecystectomy, lap LIG/TRNSXJ FLP TUBE ABDL/VAG APPR UNI/BI Tubal ligation RMVL LENS MATERIAL PHACOFRAGMENTATION ASPIR 08/2009 Cataract Extraction, right eye TONSILLECTOMY & ADENOIDECTOMY <AGE 14 TOTAL ABDOMINAL HYSTERECT W/WO RMVL TUBE OVARY Hysterectomy, GENE ALLERGIES Allergen Reactions Abilify [Aripiprazo* Mental Status Change Adhesive Tape-Silic* Rash Band Aid Atorvastatin Calcium Unknown Biaxin [Clarithromy* Cefaclor Unknown Darvon [Propoxyphen* Entex La [Phenyleph* Erythromycin Guaifenesin Unknown Oxycodone Mental Status Change Hallucinating Phenylephrine Unknown Phenylpropanolamine Unknown Pseudoephr [Other] Sulfa (Sulfonamide * Tetracyclines Unknown Vicodin [Hydrocodon* itching MEDICATIONS: Current Outpatient Medications Medication Sig atorvastatin (LIPITOR) 20 mg tablet Take 1 tablet by mouth daily at bedtime. For cholesterol. ondansetron (ZOFRAN) 4 mg tablet Take 1 tablet by mouth every 12 hours as needed for nausea/vomiting. methotrexate 2.5 mg tablet Take 6 tablets by mouth one time a week. cholecalciferol, Vitamin D3, (VITAMIN D3) 1,250 mcg (50,000 unit) cap capsule Take 1 capsule by mouth one time a week. aspirin, enteric coated (ASPIRIN, ENTERIC COATED) 81 mg EC tablet Take 81 mg by mouth daily with breakfast. gabapentin (NEURONTIN) 100 mg capsule Take 1 capsule by mouth three times a day. Dr Mcdermott leucovorin (LEUCOVORIN) 15 mg tablet Take once weekly, 10 to 12 hours after methotrexate administration buPROPion XL (WELLBUTRIN XL) 300 mg 24 hr tablet Take 1 tablet by mouth once daily. lisinopril (ZESTRIL) 20 mg tablet Take 20 mg by mouth once daily. potassium chloride (K-TAB) 10 mEq tablet Take 1 tablet by mouth twice daily. omeprazole (PRILOSEC) 20 mg capsule TAKE 1 CAPSULE BY MOUTH TWICE A DAY amLODIPine (NORVASC) 5 mg tablet Take 1 tablet by mouth once daily. sertraline (ZOLOFT) 100 mg tablet TAKE 1 TABLET BY MOUTH ONCE A DAY clonazePAM (KLONOPIN) 0.5 mg tablet Take one tablet at night daily for insomnia carvedilol (COREG) 3.125 mg tablet 3.125 mg twice daily with meals. No current facility-administered medications for this visit. FAMILY HISTORY Problem Relation Age of Onset Coronary Artery Disease Mother Hypertension Mother Coronary Artery Disease Father Hypertension Father Arthritis Father Alcohol/Drug Daughter Diabetes Other Mother's side of family SOCIAL HISTORY: Lives in [place]. Retired from working at the [employer], worked there for 31 years. 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 Older son was murdered. Daughter is 47 yo, battling drug addiction. Relapsed in Oct. She has 2 kids, older is 19 yo grandson who is going to college at [employer], will play football and wants to do SW Tobacco use: None Alcohol use: None Drug use: None *Mar Widespread Pain Index: 8 (0-19) Symptoms Severity Scale: 9 (0-12) WPI>7 and SS Scale>5 OR WPI 3-6 and SS Scale >9 consistent with fibromyalgia LABORATORY: Component Latest Ref Rng & Units 09/03/2023 09/26/2023 10/03/2023 WBC 3.70 - 11.00 k/uL 12.12 (H) 9.38 RBC 3.90 - 5.20 m/uL 4.04 3.82 (L) Hemoglobin 11.5 - 15.5 g/dL 13.0 12.5 Platelet Count 150 - 400 k/uL 303 239 Calcium 8.5 - 10.2 mg/dL 10.9 (H) Bilirubin, Total 0.2 - 1.3 mg/dL 0.4 Alkaline Phosphatase 34 - 123 U/L 98 AST 13 - 35 U/L 20 19 ALT 7 - 38 U/L 20 14 Glucose 74 - 99 mg/dL 87 BUN 7 - 21 mg/dL 12 Creatinine 0.58 - 0.96 mg/dL 1.02 (H) 0.98 (H) Sodium 136 - 144 mmol/L 138 Potassium 3.7 - 5.1 mmol/L 4.3 Chloride 97 - 105 mmol/L 100 CO2 22 - 30 mmol/L 27 Anion Gap 9 - 18 mmol/L 11 eGFR >=60 mL/min/1.73m 56 (L) 58 (L) WSR 0 - 20 mm/hr 17 Component Latest Ref Rng & Units 02/13/2022 08/27/2022 04/08/2023 WSR 0 - 20 mm/hr 18 CRP <0.9 mg/dL 0.7 Hepatitis A IgG Negative Negative Hep C Antibody IA Negative Negative Hep B Surface Ag Negative Negative Hep B Surface Ab, Qual Negative Negative Hep B Core Ab, Total Negative Negative CK 42 - 196 U/L 41 (L) HLA-B27 DNA Result Positive *Past labs reportedly with +SHELLY 1:320 homogenous, anticariolipin IgM 79.7 with unremarkable dsDNA, ROBERTO, RF, CCP and LAC STUDIES: *May DXA- LEFT HIP: BMD measured at femoral neck region of interest is 0.664 g/cm2. T-score = -1.7 Z-score = 0.7 Comments: There is a 13.7% decrease in left femoral neck bone density and 21.6% decrease in total left hip bone density since the previous study in 2008. RIGHT HIP: BMD measured at femoral neck region of interest is 0.624 g/cm2. T-score = -2.0 Z-score = 0.3 Comments: There is an 18.8% decrease in right femoral neck bone density and a 15.9% decrease in total right hip bone density since the previous study in 2008 *April xray pelvis- normal SI, moderate OA of both hips *January DXA- normal IMPRESSION and PLAN: 1. UC-related inflammatory arthritis: With prednisone responsive joint pain that flares along with increased diarrhea. Prior diagnosis of SLE, although I explained this is unlikely present despite the nonspecific SHELLY abnormality given lack of other typically associated clinical features for SLE. MTX PO with partial improvement in joint pain, had discussed switching to SC but there was a shortage at the time and now she'd prefer to continue PO. Stable. - Continue MTX 15mg PO and leucovorin. - Next labs due in December. Notify of results via SPARQCode 2. Fibromyalgia: Meets criteria based on WPI/SS scale score as above. - Aerobic exercise - Start gabapentin 200mg qhs. R/B/A discussed, including potential for headache, dizziness, grogginess, confusion, weight gain and fatigue. - Please refer to the fibromyalgia treatment guidelines as detailed below for further management by PCP 3. Osteopenia of multiple sites: Background of hypercalcemia. May DXA, high FRAX. - Start reclast. Explained potential side effects of reclast including infusion reaction (low BP, SOB, rash), flu-like symptoms (fever, bone/muscle/joint aching/pain), calcium abnormalities, bone pain, atypical femur fracture (rare), and jaw ON (rare). Advised that it not be started if planning any upcoming dental procedure until afterward as the jaw ON risk can increase with invasive procedures such as tooth extraction and that infusion would need to be delayed by at least 3 months after any invasive dental procedure. Information on reclast sent via SPARQCode. She will see dentist and let us know an update (has a cracked tooth, unsure what they will advise doing) - Ca/vit D intake reviewed (avoid tums given hypercalcemia 10.9 on 10/03 labs) - Reviewed May DXA results - Check DXA in May 4. General health maintenance: - Continue follow-up with PCP for routine health maintenance and malignancy screening Follow-up in 5, 10 & 20 months with [place] and 15 months with or sooner if needed. Patient was instructed to call if any questions or concerns. Thank you for allowing me to participate in the care of your patient. Kaylin Clay MD Treatment Recommendations for Fibromyalgia developed by Dr. Narayan Saenz M.D. 1. Medications: We recommend first trying a tricyclic antidepressant such as cyclobenzaprine (Flexeril) or amitriptyline (Elavil) in patients who have not yet had an adequate trial of this class of medications. We prefer Flexeril. Although Flexeril is generally marketed as a muscle relaxant, the similarities in chemical structure to the tricyclic antidepressants make it a very useful medication to treat pain and it can also be helpful for treating sleep disturbance. Begin Flexeril at a dose of 5 mg 2-3 hours before bedtime. Taking the medication in this fashion can help decrease morning grogginess. Increase the dose by 5 mg every week as tolerated until a total dose of 20 mg is achieved. Increased fluid intake may decrease the incidence of dry mouth and constipation. Patients should also be warned about potential weight gain. Amitriptyline (Elavil) can be used similarly in doses starting at 10 mg before bedtime, increasing by 10 mg weekly as tolerated up to 50 mg. Nortriptyline is also a good choice for many people. If maximum tolerated doses of trycyclics are not providing adequate pain relief, we recommend addition (if Flexeril/Elavil is helping) or substitution of a dual reuptake inhibitor such as Cymbalta (duloxetine) or Savella (milnacipran). Such drugs may be the drug of first choice in fibromyalgia patients with prominent depression or fatigue, as they often work well for these co-morbid symptoms (in addition to treating pain). Begin Cymbalta at 30 mg once daily with food. The dose can eventually be increased up to a total of 120 mg per day as tolerated, taken either as a single night time dose or b.i.d. Begin Savella at 25 mg, slowly increasing the dose as tolerated to a maximum of 100mg daily (e.g. 50 mg b.i.d.). Both drugs may initially cause nausea, palpitations, and other noradrenergic side effects, so patients should be instructed that this may happen. These side effects usually resolve over time. Another class of medication with proven efficacy in fibromyalgia are the [id number] ligands, Neurontin (gabapentin) and Lyrica (pregabalin). This class of drug might be the best first choice for a fibromyalgia patient with prominent sleep problems. Lyrica is specifically approved for fibromyalgia, at doses of both 300 and 450mg. For Neurontin, doses typically in the range of 1500 - 3000 mg are necessary to treat pain. Both drugs are better tolerated if most or even all of the dose is taken at bedtime (e.g. 150 mg in the morning and 300 mg at night for Lyrica, or 600 mg in the morning and 1200 mg at night for Neurontin). Some of the other medications that can be helpful in some fibromyalgia patients are higher doses of older SSRI s such as Prozac, Zoloft, or Paxil. Dosages higher than those typically used for treating depression (e.g. 40 - 50 mg of Prozac) are often necessary as it appears that at these higher dosages the important noradrenergic activity of these drugs becomes more prominent. Gamma hydroxybutyrate (particularly in those with significant sleep problems) and dopamine agonists (in those with co-morbid restless leg syndrome) can also be helpful in subsets of fibromyalgia patients. 2. Non-pharmacologic management: Activity/exercise. A swanson aspect of fibromyalgia management is for the patient to appreciate that when their symptom(s) decrease in response to pharmacologic therapy, they must correspondingly increase their function. For example, when medication(s) diminishes pain, fatigue or other symptoms by 20%, this should lead to a 20% increase in activity/function. Such an increase in function and activity may result in a continuing reduction in complaints of pain, fatigue, etc. and may also diminish associated depressive and anxiety symptoms. We highly recommend patients make use of the [employer] website, (www.[employer]), that provides a self-management program for people living with fibromyalgia. When tested in a trial, this was shown to be quite effective at improving symptoms. documented in this encounter [facility] 10-07-2023 Miscellaneous Notes Spoke with patient. Offered her to have a virtual visit with Dr. Clay today, 10/07/2023 at 11:40 am. Informed patient that there are no available appointments with Dr. Clay until December and she verbalized understanding. Patient agreed to have virtual visit with Dr. Clay and her appointment is back on schedule. Shae Johnston MA documented in this encounter [facility] 09-30-2023 Miscellaneous Notes Patient phones requesting refills as follows: Requested Prescriptions Pending Prescriptions Disp Refills atorvastatin (LIPITOR) 20 mg tablet 90 tablet 1 Sig: Take 1 tablet by mouth daily at bedtime. For cholesterol. 90 day supply sent to pharmacy on 09/23/23. Pt needs to contact pharmacy. message to pt advising of the same. Please review and advise. Alek Messina documented in this encounter [facility] 09-13-2023 Miscellaneous Notes Patient informed via VM that Rx was called in. Advised to call back with any questions or concerns. Lorena Daley Addended by: Giancarlo CASTANEDA on: 09/13/2023 01:51 PM Modules accepted: Orders The following approved medication requests have been transmitted electronically. Requested Prescriptions Signed Prescriptions Disp Refills ondansetron (ZOFRAN) 4 mg tablet 30 tablet 3 Sig: Take 1 tablet by mouth every 12 hours as needed for nausea/vomiting. Authorizing Provider: Giancarlo CASTANEDA PA-C Addended by: KITA MENDEZ MA on: 09/13/2023 10:21 AM Modules accepted: Orders Mail order pharmacy calling for refill prescription be sent for patient for medication listed below: ondansetron (ZOFRAN) 4 mg tablet Angella Vernon LPN documented in this encounter [facility] 09-11-2023 Miscellaneous Notes Patient has been identified by name and date of : Yes RX INSTRUCTIONS: Patient aware RX will be sent to pharmacy. No need to notify patient. LAST APPOINTMENT: 04/15/2023 UPCOMING APPOINTMENT: 10/08/2023 LABS: Hemoglobin (g/dL) Date Value 09/03/2023 12.4 08/26/2020 12.7 Hematocrit (%) Date Value 09/03/2023 37.5 08/26/2020 39.4 WBC (k/uL) Date Value 09/03/2023 9.28 08/26/2020 6.34 Platelet Count (k/uL) Date Value 09/03/2023 273 08/26/2020 278 AST Date Value Ref Range Status 09/03/2023 19 13 - 35 U/L Final ALT Date Value Ref Range Status 09/03/2023 15 7 - 38 U/L Final Creatinine Date Value Ref Range Status 09/03/2023 0.88 0.58 - 0.96 mg/dL Final No results found for: URICACID Shae Johnston MA documented in this encounter [facility] 09-04-2023 Miscellaneous Notes There is nothing available sooner. Patient is already on the cancellation/wait list. PSR please see message below and assist. hSae Mckeon MA Please see if any [facility] in the general area has sooner follow-up appointment availability. Please call her and let her know either way. If no sooner appointment is available, please place her on the cancellation list for sooner appointment with us. Thanks documented in this encounter [facility] 09-03-2023 Note HNO ID: [id number] Author: Giancarlo Castaneda PA-C Service: ? Author Type: Physician Forger Helper Type: Progress Notes Filed: 09/04/2023 7:51 PM Note Text: 82 year old female with c/o follow up s/p discharge from [facility]. Other concerns: Headaches that started 1 year ago, then she got neck injections which improved for a short time. But now the headaches are back, about once per week. She describes it to be a throbbing sensation. Tylenol helps. Had a UTI 2 weeks ago. Was on an antibiotic for 7 days, really did me in . Date of admission 08/19/2023 Date of discharge 08/20/2023 [facility] Discharge diagnoses: Unstable angina Medication reconciliation: no changes Summary of hospitalization: Admitted from EMS through ER with c/o left sided chest pain 4-510 radiating into jaw and neck EKG showed sinus badycaradia wihtout ischemic changes. Troponins unremarkable. Admitted overnight for stress testing CBC Wbc 8.2-HGB 12.2-HT 36.7-PLT 323 Chem: Na 130L-CL 98- K 4.3-CL 27.0-BUN 16-CRE 0.98-GLU 94- Ca 105H ALP 122H, TP 6.0H, ALB 2.7L Urine: RBC 0-5, WBC 10-25, Epi 0-5, bacteria 3+ CXR NAD 08/20/2023 [facility] stress: no ischemic EKG changes, Cardiolyte study: no fixed or reversible defects, LVEF 82% New medications: Asa 81mg daily No other medication changes Current meds: Lisinopril 10 mg Amlodipine 5 mg Use of NTG: No Chest pain, arm, jaw pain, neck, or upper back pain suggestive of angina: No. SOB: No, sometimes when going up the stairs. Dyspnea with exertion: No orthopnea: No Cough : Yes, all the time racing or irregular heartbeats: No palpitations: No syncopal sx: No Headache: Yes, see HPI Unexplainable fatigue Yes, has been ongoing for the past few years. But feels better recently Leg swelling: No Nausea: No diaphoresis: No Heartburn: Yes, Prilosec helps. Claudication: No Smoking: No Following Low cholesterol, high fiber diet? Yes Atorvastatin 20 mg If on statin: muscle aches? No If on statin: GI sx or diarrhea? No Back injections Dr. Meredith: hardly any back pain, taking nothing. Seeing him again next week. Having a lot of pain posterolateral neck and bitemporal. No issues with vision. HISTORIES FAMILY HISTORY Problem Relation Age of Onset Coronary Artery Disease Mother Hypertension Mother Coronary Artery Disease Father Hypertension Father Arthritis Father Alcohol/Drug Daughter Diabetes Other Mother's side of family PAST MEDICAL HISTORY Diagnosis Date Atherosclerotic heart disease of [place] coronary artery without angina pectoris Dr. Cardona Cholelithiases Collagenous colitis 04/18/2012 DDD (degenerative disc disease), cervical Dr. Meredith Essential hypertension, benign History of left heart catheterization 10/29/[address] Cardona History of tobacco use Hyperlipidemia LDL goal < 100 04/25/2012 Hypokalemia 11/12/2012 Intestinal disaccharidase deficiencies and disaccharide malabsorption Major depressive disorder, single episode, unspecified Mitral valve disorders(424.0) Other chondrocalcinosis, left knee Systemic lupus erythematosus (HCC) Dr. Higgins Ulcerative colitis without complications (HCC) 08/29/2015 Unilateral primary osteoarthritis, left knee PAST SURGICAL HISTORY Procedure Laterality Date ARTHROSCOPY KNEE DIAGNOSTIC W/WO SYNOVIAL BX SPX Left 03/07/2018 [facility]-Dr. Viveros ARTHRP KNE CONDYLEANDPLATU MEDIALANDLAT COMPARTMENTS Right 07/14/2020 right total knee COLONOSCOPY FLX DX W/COLLJ SPEC WHEN PFRMD 04/18/2011 Colonoscopy COLONOSCOPY FLX DX W/COLLJ SPEC WHEN PFRMD 05/17/2016 Colonoscopy ESOPHAGOGASTRODUODENOSCOPY TRANSORAL DIAGNOSTIC 11/07/2016 EGD LAPAROSCOPY SURG CHOLECYSTECTOMY 10/17/2011 Cholecystectomy, lap LIG/TRNSXJ FLP TUBE ABDL/VAG APPR UNI/BI Tubal ligation RMVL LENS MATERIAL PHACOFRAGMENTATION ASPIR 08/2009 Cataract Extraction, right eye TONSILLECTOMY AND ADENOIDECTOMY TOTAL ABDOMINAL HYSTERECT W/WO RMVL TUBE OVARY Hysterectomy, GENE Social History Tobacco Use Smoking status: Former Packs/day: 1.00 Years: 15.00 Additional pack years: 0.00 Total pack years: 15.00 Types: Cigarettes Quit date: 1996 Years since quittin.8 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) Gastroesophageal Reflux Disease Without Esophagitis Coronary Artery Disease Involving [place] Coronary Artery Ckd (Chronic Kidney Disease) Stage 3, Gfr 30-59 Ml/Min (Hcc) Depression, Major, Recurrent, Moderate (Hcc) Chronic Anxiety Insomnia Secondary to Anxiety (more content not included)... [facility] 09-03-2023 History of Present illness Narrative 82 year old female with c/o follow up s/p discharge from [facility]. Other concerns: Headaches that started 1 year ago, then she got neck injections which improved for a short time. But now the headaches are back, about once per week. She describes it to be a throbbing sensation. Tylenol helps. Had a UTI 2 weeks ago. Was on an antibiotic for 7 days, really did me in . Date of admission 08/19/2023 Date of discharge 08/20/2023 [facility] Discharge diagnoses: Unstable angina Medication reconciliation: no changes Summary of hospitalization: Admitted from EMS through ER with c/o left sided chest pain 4-5/10 radiating into jaw and neck EKG showed sinus badycaradia wihtout ischemic changes. Troponins unremarkable. Admitted overnight for stress testing CBC Wbc 8.2-HGB 12.2-HT 36.7-PLT 323 Chem: Na 130L-CL 98- K 4.3-CL 27.0-BUN 16-CRE 0.98-GLU 94- Ca 105H ALP 122H, TP 6.0H, ALB 2.7L Urine: RBC 0-5, WBC 10-25, Epi 0-5, bacteria 3+ CXR NAD 08/20/2023 [facility] pharm stress: no ischemic EKG changes, Cardiolyte study: no fixed or reversible defects, LVEF 82% New medications: Asa 81mg daily No other medication changes Current meds: Lisinopril 10 mg Amlodipine 5 mg Use of NTG: No Chest pain, arm, jaw pain, neck, or upper back pain suggestive of angina: No. SOB: No, sometimes when going up the stairs. Dyspnea with exertion: No orthopnea: No Cough : Yes, all the time racing or irregular heartbeats: No palpitations: No syncopal sx: No Headache: Yes, see HPI Unexplainable fatigue Yes, has been ongoing for the past few years. But feels better recently Leg swelling: No Nausea: No diaphoresis: No Heartburn: Yes, Prilosec helps. Claudication: No Smoking: No Following Low cholesterol, high fiber diet? Yes Atorvastatin 20 mg If on statin: muscle aches? No If on statin: GI sx or diarrhea? No Back injections Dr. Meredith: hardly any back pain, taking nothing. Seeing him again next week. Having a lot of pain posterolateral neck and bitemporal. No issues with vision. HISTORIES FAMILY HISTORY Problem Relation Age of Onset Coronary Artery Disease Mother Hypertension Mother Coronary Artery Disease Father Hypertension Father Arthritis Father Alcohol/Drug Daughter Diabetes Other Mother's side of family PAST MEDICAL HISTORY Diagnosis Date Atherosclerotic heart disease of [place] coronary artery without angina pectoris Dr. Cardona Cholelithiases Collagenous colitis 04/18/2012 DDD (degenerative disc disease), cervical Dr. Meredith Essential hypertension, benign History of left heart catheterization 10/29/[address] Cardona History of tobacco use Hyperlipidemia LDL goal < 100 04/25/2012 Hypokalemia 11/12/2012 Intestinal disaccharidase deficiencies and disaccharide malabsorption Major depressive disorder, single episode, unspecified Mitral valve disorders(424.0) Other chondrocalcinosis, left knee Systemic lupus erythematosus (HCC) Dr. Higgins Ulcerative colitis without complications (HCC) 08/29/2015 Unilateral primary osteoarthritis, left knee PAST SURGICAL HISTORY Procedure Laterality Date ARTHROSCOPY KNEE DIAGNOSTIC W/WO SYNOVIAL BX SPX Left 03/07/2018 [facility]-Dr. Viveros ARTHRP KNE CONDYLE&PLATU MEDIAL&LAT COMPARTMENTS Right 07/14/2020 right total knee COLONOSCOPY FLX DX W/COLLJ SPEC WHEN PFRMD 04/18/2011 Colonoscopy COLONOSCOPY FLX DX W/COLLJ SPEC WHEN PFRMD 05/17/2016 Colonoscopy ESOPHAGOGASTRODUODENOSCOPY TRANSORAL DIAGNOSTIC 11/07/2016 EGD LAPAROSCOPY SURG CHOLECYSTECTOMY 10/17/2011 Cholecystectomy, lap LIG/TRNSXJ FLP TUBE ABDL/VAG APPR UNI/BI Tubal ligation RMVL LENS MATERIAL PHACOFRAGMENTATION ASPIR 08/2009 Cataract Extraction, right eye TONSILLECTOMY & ADENOIDECTOMY <AGE 14 TOTAL ABDOMINAL HYSTERECT W/WO RMVL TUBE OVARY Hysterectomy, GENE Social History Tobacco Use Smoking status: Former Packs/day: 1.00 Years: 15.00 Additional pack years: 0.00 Total pack years: 15.00 Types: Cigarettes Quit date: 1996 Years since quittin.8 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) Gastroesophageal Reflux Disease Without Esophagitis Coronary Artery Disease Involving [place] Coronary Artery Ckd (Chronic Kidney Disease) Stage 3, Gfr 30-59 Ml/Min (Hcc) Depression, Major, Recurrent, Moderate (Hcc) Chronic Anxiety Insomnia Secondary to Anxiety Hypertensive Kidney Disease With Chronic Kidney Disease Stage Iii (Hcc) Inflammatory Polyarthritis (Hcc) Aftercare Following Joint Replacement Surgery Constipation, Unspecified Disruption of External Operation (Surgical) Wound, Not Elsewhere Classified, Subsequent Encounter Generalized Anxiety Disorder History of Depression Iron Deficiency Anemia Secondary to Blood Loss (Chronic) Lupus (Hcc) Mitral Valve Prolapse Presence of Right Artificial Knee Joint Repeated Falls Lumbar Pain Encounter for Support and Coordination of Transition of Care Current Outpatient Medications Medication Sig Dispense Refill gabapentin (NEURONTIN) 100 mg capsule Take 1 capsule by mouth three times a day. Dr Mcdermott 90 capsule 11 leucovorin (LEUCOVORIN) 15 mg tablet Take once weekly, 10 to 12 hours after methotrexate administration 12 tablet 3 methotrexate 2.5 mg tablet Take 6 tablets by mouth one time a week. 24 tablet 0 tiZANidine (ZANAFLEX) 4 mg tablet Take 1 tablet by mouth every 8 hours as needed (muscle spasms). 20 tablet 0 buPROPion XL (WELLBUTRIN XL) 300 mg 24 hr tablet Take 1 tablet by mouth once daily. 90 tablet 3 ergocalciferol 50,000 unit capsule (VITAMIN D2, DRISDOL) Take 1 capsule by mouth one time a week. 12 capsule 3 methotrexate sodium 25 mg/mL soln Inject 15mg (0.6mL) subcutaneously once weekly 12 mL 0 Syringe with Needle, Disp, (BD TUBERCULIN SYRINGE) 1 mL 25 gauge x 5/8 Use once weekly with methotrexate injections 12 Each 3 lisinopril (ZESTRIL) 20 mg tablet Take 20 mg by mouth once daily. potassium chloride (K-TAB) 10 mEq tablet Take 1 tablet by mouth twice daily. 60 tablet 11 atorvastatin (LIPITOR) 20 mg tablet Take 1 tablet by mouth daily at bedtime. For cholesterol. 90 tablet 1 omeprazole (PRILOSEC) 20 mg capsule TAKE 1 CAPSULE BY MOUTH TWICE A DAY 180 capsule 3 amLODIPine (NORVASC) 5 mg tablet Take 1 tablet by mouth once daily. 90 tablet 3 sertraline (ZOLOFT) 100 mg tablet TAKE 1 TABLET BY MOUTH ONCE A DAY 90 tablet 3 clonazePAM (KLONOPIN) 0.5 mg tablet Take one tablet at night daily for insomnia 15 tablet 0 carvedilol (COREG) 3.125 mg tablet 3.125 mg twice daily with meals. No current facility-administered medications for this visit. Meningococcal B Vaccine: Consider Based On Risk(1 of 4 - Increased Risk) Never done RSV Vaccine(1 - 1-dose 60+ series) Never done MMR Vaccine(2 of 2 - Risk 2-dose series) due on 11/20/2012 Shingrix Vaccine(1 of 2) due on 12/18/2012 BP Controlled (<130/80) due on 01/25/2023 EXAM: BP 124/72 Pulse 85 Ht 170.2 cm (5' 7 ) Wt 64.9 kg (143 lb) SpO2 95% BMI 22.40 kg/m Pleasant older adult woman in no acute distress. Alert and oriented all spheres. Normal affect and cognition. Speech normal. No deficits to learning or comprehension. Skin warm, dry, pink to lips and nailbeds. Normal turgor. Respirations regular and unlabored. HEENT: NCAT. No scleral icterus or conjunctival injection. TM's clear. Nose and oropharynx free from injection or lesion. Oral membranes moist and pink. No cervical lymph nodes. Thyroid non-tender, no masses, or enlargement. Carotids pulses 2+/4+ without bruits. Neck veins flat upright. Chest is normal shape. Lungs are clear to all walters with good air exchange through out. HRRR without murmur or gallop. No lifts, heaves, or rubs. Extrem: no clubbing or cyanosis. Edema: none. Extremities are warm and pink with prompt capillary refill. ASSESSMENT/PLAN: 1. Temporal headache - ICD9: 784.0, ICD10: R51.9 (primary diagnosis) Suspect stress related, possible TMJ. Has had numerous normal sed rates. Discussed tension headaches, TMJ syndrome, measures to alleviate muscle tension demonstrated. - SED RATE WESTERGREN 2. Hospital discharge follow-up - ICD9: V67.59, ICD10: Z09 Records reviewe and summarized Medications reconciled. 3. Chest pain, unspecified type - ICD9: 786.50, ICD10: R07.9 Negative troponins, negative pharm nuclear stress 4. History of nuclear stress test negative - ICD9: V15.89, ICD10: Z92.89 Giancarlo Castaneda PA-C Some of this note may have been copied and pasted for the purpose of history context and comparison and has been adjusted for changes in prior data. Giancarlo Castaneda PA-C documented in this encounter [facility] 08-23-2023 Note HNO ID: [id number] Author: Rufus Hester APRN.CAN STACKER Service: ? Author Type: Nurse Practitioner Type: Progress Notes Filed: 08/23/2023 10:39 AM Note Text: Subjective HPI HPI Dina Hester is a 82 year old female who presents today for CC of urinary urgency, burning, frequency, low abd discomfort. This started 1 week ago. Has tried otc medication for relief. Symptoms are worsened by nothing. Denies hx of uti. .Patient presents with: UTI: Burning and urgency, lower abd pressure, nausea, urine odor x1 week PAST MEDICAL HISTORY Diagnosis Date Atherosclerotic heart disease of [place] coronary artery without angina pectoris Dr. Cardona Cholelithiases Collagenous colitis 04/18/2012 DDD (degenerative disc disease), cervical Dr. Meredith Essential hypertension, benign History of left heart catheterization 10/29/[address] Cardona History of tobacco use Hyperlipidemia LDL goal < 100 04/25/2012 Hypokalemia 11/12/2012 Intestinal disaccharidase deficiencies and disaccharide malabsorption Major depressive disorder, single episode, unspecified Mitral valve disorders(424.0) Other chondrocalcinosis, left knee Systemic lupus erythematosus (HCC) Dr. Higgins Ulcerative colitis without complications (HCC) 08/29/2015 Unilateral primary osteoarthritis, left knee PAST SURGICAL HISTORY Procedure Laterality Date ARTHROSCOPY KNEE DIAGNOSTIC W/WO SYNOVIAL BX SPX Left 03/07/2018 [facility]-Dr. Viveros ARTHRP KNE CONDYLEANDPLATU MEDIALANDLAT COMPARTMENTS Right 07/14/2020 right total knee COLONOSCOPY FLX DX W/COLLJ SPEC WHEN PFRMD 04/18/2011 Colonoscopy COLONOSCOPY FLX DX W/COLLJ SPEC WHEN PFRMD 05/17/2016 Colonoscopy ESOPHAGOGASTRODUODENOSCOPY TRANSORAL DIAGNOSTIC 11/07/2016 EGD LAPAROSCOPY SURG CHOLECYSTECTOMY 10/17/2011 Cholecystectomy, lap LIG/TRNSXJ FLP TUBE ABDL/VAG APPR UNI/BI Tubal ligation RMVL LENS MATERIAL PHACOFRAGMENTATION ASPIR 08/2009 Cataract Extraction, right eye TONSILLECTOMY AND ADENOIDECTOMY TOTAL ABDOMINAL HYSTERECT W/WO RMVL TUBE OVARY Hysterectomy, GENE ALLERGIES Abilify [Aripiprazole], Adhesive Tape-Silicones, Atorvastatin Calcium, Biaxin [Clarithromycin], Cefaclor, Darvon [Propoxyphene], Entex La [Phenylephrine-Guaifenesin], Erythromycin, Guaifenesin, Oxycodone, Phenylephrine, Phenylpropanolamine, Pseudoephr [Other], Sulfa (Sulfonamide Antibiotics), Tetracyclines, and Vicodin [Hydrocodone-Acetaminophen] MEDICATIONS cephALEXin (KEFLEX) 500 mg capsule Take 1 capsule by mouth two times a day for 7 days. gabapentin (NEURONTIN) 100 mg capsule Take 1 capsule by mouth three times a day. Dr Mcdermott leucovorin (LEUCOVORIN) 15 mg tablet Take once weekly, 10 to 12 hours after methotrexate administration methotrexate 2.5 mg tablet Take 6 tablets by mouth one time a week. tiZANidine (ZANAFLEX) 4 mg tablet Take 1 tablet by mouth every 8 hours as needed (muscle spasms). buPROPion XL (WELLBUTRIN XL) 300 mg 24 hr tablet Take 1 tablet by mouth once daily. ergocalciferol 50,000 unit capsule (VITAMIN D2, DRISDOL) Take 1 capsule by mouth one time a week. methotrexate sodium 25 mg/mL soln Inject 15mg (0.6mL) subcutaneously once weekly Syringe with Needle, Disp, (BD TUBERCULIN SYRINGE) 1 mL 25 gauge x 5/8 Use once weekly with methotrexate injections lisinopril (ZESTRIL) 20 mg tablet Take 20 mg by mouth once daily. potassium chloride (K-TAB) 10 mEq tablet Take 1 tablet by mouth twice daily. atorvastatin (LIPITOR) 20 mg tablet Take 1 tablet by mouth daily at bedtime. For cholesterol. omeprazole (PRILOSEC) 20 mg capsule TAKE 1 CAPSULE BY MOUTH TWICE A DAY amLODIPine (NORVASC) 5 mg tablet Take 1 tablet by mouth once daily. sertraline (ZOLOFT) 100 mg tablet TAKE 1 TABLET BY MOUTH ONCE A DAY clonazePAM (KLONOPIN) 0.5 mg tablet Take one tablet at night daily for insomnia carvedilol (COREG) 3.125 mg tablet 3.125 mg twice daily with meals. FAMILY HISTORY Problem Relation Age of Onset Coronary Artery Disease Mother Hypertension Mother Coronary Artery Disease Father Hypertension Father Arthritis Father Alcohol/Drug Daughter Diabetes Other Mother's side of family Social History Tobacco Use Smoking status: Former Packs/day: 1.00 Years: 15.00 Additional pack years: 0.00 Total pack years: 15.00 Types: Cigarettes Quit date: 1996 Years since quittin.8 Smokeless tobacco: Never Substance Use Topics Alcohol use: Yes Comment: RARELY Drug use: No Review of Systems Constitutional: Negative for chills, fever and weight loss. Respiratory: Negative for cough, shortness of breath and wheezing. Cardiovascular: Negative for chest pain and palpitations. Gastrointestinal: Negative for abdominal pain, blood in stool, constipation, diarrhea, heartburn, melena, nausea and vomiting. Genitourinary: Positive for dysuria, frequency and urgency. Negative for flank pain and hematuria. Musculoskeletal: Negative for my (more content not included)... [facility] 08-23-2023 Miscellaneous Notes [place] pharmacist [facility] calling she is not comfortable giving the patient Cephalexin rx due to her allergies. Patient is unaware of what kind of reaction she had to many antibiotics. 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 Please advise documented in this encounter [facility] 08-23-2023 Instructions Rufus Hester APRN.CHRISTIAN - 08/23/2023 10:39 AM EDT Patient Education for Female Urinary Tract Infections Possible complications: Pyelonehritis Renal abscess Expected course/prognosis: * symptoms resolve within 2-3 days after starting treatment in almost all patients * one-fourth of women with simple UTI experience a second UTI within 6 months, and half at some time during lifetime. * patients with multiple recurrent UTI and no underlying urinary tract abnormality may receive long-term prophylactic antibioitic treatment. Trimethoprim-sulfamethoxazole and nitrofurantoin common used. * women with frequent or intercourse-related UTI should empty bladder immediately before and following intercourse and consider postcoital antibiotic treament Instructions: * Maintain good hydration * Avoid sexual intercourse when symptoms present *Take antibiotic as directed * Return if symptoms not resolved or markedly improved within 48 hours * Return if fever, chills, or flank pain develop * If taking prophylactic antiobiotics, take at bedtime * Take showers instead of tub baths * Avoid feminine hygiene sprays and scented douches * Wipe urethra from front to back documented in this encounter [facility] 08-23-2023 History of Present illness Narrative Subjective HPI HPI Dina Hester is a 82 year old female who presents today for CC of urinary urgency, burning, frequency, low abd discomfort. This started 1 week ago. Has tried otc medication for relief. Symptoms are worsened by nothing. Denies hx of uti. .Patient presents with: UTI: Burning and urgency, lower abd pressure, nausea, urine odor x1 week PAST MEDICAL HISTORY Diagnosis Date Atherosclerotic heart disease of [place] coronary artery without angina pectoris Dr. Cardona Cholelithiases Collagenous colitis 04/18/2012 DDD (degenerative disc disease), cervical Dr. Meredith Essential hypertension, benign History of left heart catheterization 10/29/[address] Cardona History of tobacco use Hyperlipidemia LDL goal < 100 04/25/2012 Hypokalemia 11/12/2012 Intestinal disaccharidase deficiencies and disaccharide malabsorption Major depressive disorder, single episode, unspecified Mitral valve disorders(424.0) Other chondrocalcinosis, left knee Systemic lupus erythematosus (HCC) Dr. Higgins Ulcerative colitis without complications ([facility]) 08/29/2015 Unilateral primary osteoarthritis, left knee PAST SURGICAL HISTORY Procedure Laterality Date ARTHROSCOPY KNEE DIAGNOSTIC W/WO SYNOVIAL BX SPX Left 03/07/2018 [facility]-Dr. Viveros ARTHRP KNE CONDYLE&PLATU MEDIAL&LAT COMPARTMENTS Right 07/14/2020 right total knee COLONOSCOPY FLX DX W/COLLJ SPEC WHEN PFRMD 04/18/2011 Colonoscopy COLONOSCOPY FLX DX W/COLLJ SPEC WHEN PFRMD 05/17/2016 Colonoscopy ESOPHAGOGASTRODUODENOSCOPY TRANSORAL DIAGNOSTIC 11/07/2016 EGD LAPAROSCOPY SURG CHOLECYSTECTOMY 10/17/2011 Cholecystectomy, lap LIG/TRNSXJ FLP TUBE ABDL/VAG APPR UNI/BI Tubal ligation RMVL LENS MATERIAL PHACOFRAGMENTATION ASPIR 08/2009 Cataract Extraction, right eye TONSILLECTOMY & ADENOIDECTOMY <AGE 14 TOTAL ABDOMINAL HYSTERECT W/WO RMVL TUBE OVARY Hysterectomy, GENE ALLERGIES Abilify [Aripiprazole], Adhesive Tape-Silicones, Atorvastatin Calcium, Biaxin [Clarithromycin], Cefaclor, Darvon [Propoxyphene], Entex La [Phenylephrine-Guaifenesin], Erythromycin, Guaifenesin, Oxycodone, Phenylephrine, Phenylpropanolamine, Pseudoephr [Other], Sulfa (Sulfonamide Antibiotics), Tetracyclines, and Vicodin [Hydrocodone-Acetaminophen] MEDICATIONS cephALEXin (KEFLEX) 500 mg capsule Take 1 capsule by mouth two times a day for 7 days. gabapentin (NEURONTIN) 100 mg capsule Take 1 capsule by mouth three times a day. Dr Mcdermott leucovorin (LEUCOVORIN) 15 mg tablet Take once weekly, 10 to 12 hours after methotrexate administration methotrexate 2.5 mg tablet Take 6 tablets by mouth one time a week. tiZANidine (ZANAFLEX) 4 mg tablet Take 1 tablet by mouth every 8 hours as needed (muscle spasms). buPROPion XL (WELLBUTRIN XL) 300 mg 24 hr tablet Take 1 tablet by mouth once daily. ergocalciferol 50,000 unit capsule (VITAMIN D2, DRISDOL) Take 1 capsule by mouth one time a week. methotrexate sodium 25 mg/mL soln Inject 15mg (0.6mL) subcutaneously once weekly Syringe with Needle, Disp, (BD TUBERCULIN SYRINGE) 1 mL 25 gauge x 5/8 Use once weekly with methotrexate injections lisinopril (ZESTRIL) 20 mg tablet Take 20 mg by mouth once daily. potassium chloride (K-TAB) 10 mEq tablet Take 1 tablet by mouth twice daily. atorvastatin (LIPITOR) 20 mg tablet Take 1 tablet by mouth daily at bedtime. For cholesterol. omeprazole (PRILOSEC) 20 mg capsule TAKE 1 CAPSULE BY MOUTH TWICE A DAY amLODIPine (NORVASC) 5 mg tablet Take 1 tablet by mouth once daily. sertraline (ZOLOFT) 100 mg tablet TAKE 1 TABLET BY MOUTH ONCE A DAY clonazePAM (KLONOPIN) 0.5 mg tablet Take one tablet at night daily for insomnia carvedilol (COREG) 3.125 mg tablet 3.125 mg twice daily with meals. FAMILY HISTORY Problem Relation Age of Onset Coronary Artery Disease Mother Hypertension Mother Coronary Artery Disease Father Hypertension Father Arthritis Father Alcohol/Drug Daughter Diabetes Other Mother's side of family Social History Tobacco Use Smoking status: Former Packs/day: 1.00 Years: 15.00 Additional pack years: 0.00 Total pack years: 15.00 Types: Cigarettes Quit date: 1996 Years since quittin. Smokeless tobacco: Never Substance Use Topics Alcohol use: Yes Comment: RARELY Drug use: No Review of Systems Constitutional: Negative for chills, fever and weight loss. Respiratory: Negative for cough, shortness of breath and wheezing. Cardiovascular: Negative for chest pain and palpitations. Gastrointestinal: Negative for abdominal pain, blood in stool, constipation, diarrhea, heartburn, melena, nausea and vomiting. Genitourinary: Positive for dysuria, frequency and urgency. Negative for flank pain and hematuria. Musculoskeletal: Negative for myalgias. Objective Blood pressure 159/76, pulse 82, temperature 36.3 C (97.4 F), resp. rate 18, weight 65.4 kg (144 lb 3.2 oz), SpO2 93 %. Component Latest Ref Rng & Units 06/05/2023 Glucose 74 - 99 mg/dL 87 BUN 7 - 21 mg/dL 19 Creatinine 0.58 - 0.96 mg/dL 1.09 (H) Sodium 136 - 144 mmol/L 140 Potassium 3.7 - 5.1 mmol/L 5.0 Chloride 97 - 105 mmol/L 103 CO2 22 - 30 mmol/L 24 Anion Gap 9 - 18 mmol/L 13 Calcium 8.5 - 10.2 mg/dL 10.5 (H) eGFR >=60 mL/min/1.73m 51 (L) Physical Exam Constitutional: General: She is not in acute distress. Appearance: Normal appearance. She is not toxic-appearing. Cardiovascular: Rate and Rhythm: Normal rate and regular rhythm. Heart sounds: Normal heart sounds. Pulmonary: Effort: Pulmonary effort is normal. Breath sounds: Normal breath sounds. Abdominal: General: Bowel sounds are normal. Palpations: Abdomen is soft. Tenderness: There is no abdominal tenderness. There is no right CVA tenderness or left CVA tenderness. Skin: General: Skin is warm and dry. ASSESSMENT/PLAN: 1. Urgency of urination - ICD9: 788.63, ICD10: R39.15 Ua pos for nites, leuks Send for culture Start cephalexin Urgent f/u for worsening s/s. - UA DIP, URINE (POC) - URINE CULTURE - CEPHALEXIN 500 MG CAPSULE Rufus Hester APRN.CAN STACKER documented in this encounter [facility] 08-13-2023 Note HNO ID: [id number] Author: aMrija Reeves RT(R) Service: Radiology Author Type: Technologist Type: Progress Notes Filed: 08/13/2023 11:46 AM Note Text: Radiology Service Progress Note PATIENT NAME: Dina Hester DATE OF SERVICE: August 13, 2023 TIME: 11:19 AM PATIENT IDENTITY VERIFICATION COMPLETED USING TWO (2) IDENTIFIERS: Name and Date of confirmed by patient verbally. FALL SCREENING: Has the patient had 2 falls in the last year or 1 fall with injury or currently using an Ambulatory Assistive Device (Walker, Cane, Wheelchair, Crutches, etc.)? No PATIENT GENDER DATA: Female. status: : No status: NO. PATIENT RELEVANT IMPLANT DATA REVIEWED: Not Applicable RADIOLOGY DEPARTMENT: General X-ray: Exam(s) Completed: Spine X-Ray(s): Lumbar AP / LAT / L5-S1 / OBL / FLEX-EXT order verified by Tri TAI IV DATA: Not applicable SIGNED BY: RT Enoch(R) August 13, 2023 11:19 AM [facility] 08-13-2023 History of Present illness Narrative Radiology Service Progress Note PATIENT NAME: Dina Hester DATE OF SERVICE: August 13, 2023 TIME: 11:19 AM PATIENT IDENTITY VERIFICATION COMPLETED USING TWO (2) IDENTIFIERS: Name and Date of confirmed by patient verbally. FALL SCREENING: Has the patient had 2 falls in the last year or 1 fall with injury or currently using an Ambulatory Assistive Device (Walker, Cane, Wheelchair, Crutches, etc.)? No PATIENT GENDER DATA: Female. status: : No status: NO. PATIENT RELEVANT IMPLANT DATA REVIEWED: Not Applicable RADIOLOGY DEPARTMENT: General X-ray: Exam(s) Completed: Spine X-Ray(s): Lumbar AP / LAT / L5-S1 / OBL / FLEX-EXT order verified by Tri [facility] IV DATA: Not applicable SIGNED BY: RT Enoch(R) August 13, 2023 11:19 AM documented in this encounter [facility] 08-08-2023 Miscellaneous Notes Patient has been identified by name and date of : Yes RX INSTRUCTIONS: Patient aware RX will be sent to pharmacy. No need to notify patient. LAST APPOINTMENT: 04/15/2023 UPCOMING APPOINTMENT: 09/16/2023 LABS: Hemoglobin (g/dL) Date Value 07/09/2023 11.5 08/26/2020 12.7 Hematocrit (%) Date Value 07/09/2023 34.3 08/26/2020 39.4 WBC (k/uL) Date Value 07/09/2023 6.10 08/26/2020 6.34 Platelet Count (k/uL) Date Value 07/09/2023 247 08/26/2020 278 AST Date Value Ref Range Status 07/09/2023 17 13 - 35 U/L Final ALT Date Value Ref Range Status 07/09/2023 15 7 - 38 U/L Final Creatinine Date Value Ref Range Status 07/09/2023 1.00 (H) 0.58 - 0.96 mg/dL Final No results found for: URICACID Nicole Turcios MA documented in this encounter [facility] 08-06-2023 Note HNO ID: [id number] Author: Jacobo Fox PT Service: ? Author Type: Physical Therapist Type: Progress Notes Filed: 08/06/2023 12:46 PM Note Text: Episode Visit Count: 1 Therapist That Will Accept/Oversee The Plan Of Care: Jacobo Fox Start of Care Date: 08/06/23 Onset Date: 07/23/23 Plan of Care Certification Date: 08/05/23 Next Certification Due Date: 10/05/23 Patient Identified by Name and Date of : Yes REHABILITATION AND SPORTS THERAPY PHYSICAL THERAPY EVALUATION PLAN OF CARE: Assessment: Dina Hester presents with chief complaint of LBP that interferes with sitting, rising from a chair, standing, walking . She presents with impairments in ADL's, overall function, range of motion, strength, and symptom management. PROMIS? (Patient-Reported Outcomes Measurement Information System) scores were reviewed and all domains identified as a rehabilitation concern. Prognosis for therapy is Good due to: current objective clinical presentation, good overall health status, acuteness of condition, positive past response to therapy, within-session changes, good support system/ coping skills . She will benefit from skilled therapy services to meet the goals established for this plan of care as noted below. Classification Low Back Pain Subgroup Classification: Specific exercise subgroup: recommended visits 8. Specific Exercies Subgroup Classification based on: directional preference, centralization Goals for Episode of Care: created on 08/06/23 through 10/05/23 Independent in home exercises. Patient will decrease pain rating by 2 points to meet minimal clinical important difference for numeric pain rating scale. Stand / Walk as needed for ADLs without pain/symptoms. Sleep through night without pain/symptoms. Maintain proper sitting posture throughout session Patient will increase strength of trunk/core to 4/5 to allow for improve ability to complete ADLs. Planned Interventions, Frequency, and Duration: Current Frequency: 1x/week Duration: 8 weeks Total Number of Visits Planned: 8 Planned Treatment Interventions: Therapeutic exercise (62752), Neuromuscular re-education (59979), Manual therapy (80051), Therapeutic activities (50655), Self-snf management (06251), Patient/Family/Caregiver Education, Body Mechanics Training PLAN FOR NEXT VISIT: Continue flexion bias, neutral spine strengthening; traction if this helped Patient demonstrates good understanding of plan of care and treatment. The above goals and plan of care were discussed and agreed upon by patient/family. SUBJECTIVE: L sided LBP for 2 weeks now. Went to the ER, but this provded no relief after a kenolog injection. Prednisone taper gave her thrush, and being on mm relaxer caused 2 falls and she stopped. Trying heat and ice, not much relief. Lying on the left side does feel comfortabel but comes right back when she sits up. Worse to sit, stand, walking. Functional Limitations: sitting, rising from a chair, standing, walking Prior Level of Function: Independent without limitations Intake Information: Prescription present Previous Treatment: Ice , Heat , Injections Pain: Pain Pain Level: 8 Pain Location: Low Back/Lumbar Spine - Left Description: Sharp, Stabbing Frequency: Continuous PROMIS Scales Higher is Better 08/04/2023 07/23/2023 04/08/2023 Phys Func - Score - 27 (severe dysfunction) 34 (moderate dysfunction) Phys Func - Percentile - 1 % 5 % Self-Eff Symptom - Score 35 (Low) - - Self-Eff Symptom - Percentile 7 % - - T-scores: mean of general population = 50. 5 points is clinically meaningfully difference Percentiles provide an indication of how the patient's score ranks in relation to the general population. Higher percentile rankings indicate better function/quality of life. 50th percentile is the average of the general population and indicates half of respondents had a worse score. OBJECTIVE MEASURES WITH LEVEL OF FUNCTION: Lumbar Spine AROM Lumbar Flexion: Normal Lumbar Extension: Major limitation Lumbar R Side-Bend: Minimal limitation Lumbar L Side-Bend: Moderate limitation Lumbar R Rotation: Minimal limitation Lumbar L Rotation: Minimal limitation LE Strength Trunk Strength: 3/5 grossly R LE Strength: 4/5 L LE Strength: 4-/5 Education: Education Learning/educational needs: Home exercise program, Plan of Care, Changes in Plan of Care, Posture, Body Mechanics TREATMENT: PT Treatment Interventions: Therapeutic Exercise, Manual Therapy Evaluation Therapeutic Exercise: 1: *SKC 3x30 sec 2: *DKC 3x30 sec 3: *TA bracing 3x10, 5 sec holds Skilled Intervention: Patient was educated in proper exercise technique and purpose for exercises. Skilled judgment was used in selection of appropriate interventions. Provided written instruction for home exercise program to facilitate proper performance and compliance. Correct performance of therape (more content not included)... [facility] 08-06-2023 History of Present illness Narrative Episode Visit Count: 1 Therapist That Will Accept/Oversee The Plan Of Care: Jacobo Fox Start of Care Date: 08/06/23 Onset Date: 07/23/23 Plan of Care Certification Date: 08/05/23 Next Certification Due Date: 10/05/23 Patient Identified by Name and Date of : Yes REHABILITATION AND SPORTS THERAPY PHYSICAL THERAPY EVALUATION PLAN OF CARE: Assessment: Dina Hester presents with chief complaint of LBP that interferes with sitting, rising from a chair, standing, walking . She presents with impairments in ADL's, overall function, range of motion, strength, and symptom management. PROMIS (Patient-Reported Outcomes Measurement Information System) scores were reviewed and all domains identified as a rehabilitation concern. Prognosis for therapy is Good due to: current objective clinical presentation, good overall health status, acuteness of condition, positive past response to therapy, within-session changes, good support system/ coping skills . She will benefit from skilled therapy services to meet the goals established for this plan of care as noted below. Classification Low Back Pain Subgroup Classification: Specific exercise subgroup: recommended visits 8. Specific Exercies Subgroup Classification based on: directional preference, centralization Goals for Episode of Care: created on 08/06/23 through 10/05/23 Independent in home exercises. Patient will decrease pain rating by 2 points to meet minimal clinical important difference for numeric pain rating scale. Stand / Walk as needed for ADLs without pain/symptoms. Sleep through night without pain/symptoms. Maintain proper sitting posture throughout session Patient will increase strength of trunk/core to 4/5 to allow for improve ability to complete ADLs. Planned Interventions, Frequency, and Duration: Current Frequency: 1x/week Duration: 8 weeks Total Number of Visits Planned: 8 Planned Treatment Interventions: Therapeutic exercise (62829), Neuromuscular re-education (71520), Manual therapy (05049), Therapeutic activities (09556), Self-snf management (28005), Patient/Family/Caregiver Education, Body Mechanics Training PLAN FOR NEXT VISIT: Continue flexion bias, neutral spine strengthening; traction if this helped Patient demonstrates good understanding of plan of care and treatment. The above goals and plan of care were discussed and agreed upon by patient/family. SUBJECTIVE: L sided LBP for 2 weeks now. Went to the ER, but this provded no relief after a kenolog injection. Prednisone taper gave her thrush, and being on mm relaxer caused 2 falls and she stopped. Trying heat and ice, not much relief. Lying on the left side does feel comfortabel but comes right back when she sits up. Worse to sit, stand, walking. Functional Limitations: sitting, rising from a chair, standing, walking Prior Level of Function: Independent without limitations Intake Information: Prescription present Previous Treatment: Ice , Heat , Injections Pain: Pain Pain Level: 8 Pain Location: Low Back/Lumbar Spine - Left Description: Sharp, Stabbing Frequency: Continuous PROMIS Scales Higher is Better 08/04/2023 07/23/2023 04/08/2023 Phys Func - Score - 27 (severe dysfunction) 34 (moderate dysfunction) Phys Func - Percentile - 1 % 5 % Self-Eff Symptom - Score 35 (Low) - - Self-Eff Symptom - Percentile 7 % - - T-scores: mean of general population = 50. 5 points is clinically meaningfully difference Percentiles provide an indication of how the patient's score ranks in relation to the general population. Higher percentile rankings indicate better function/quality of life. 50th percentile is the average of the general population and indicates half of respondents had a worse score. OBJECTIVE MEASURES WITH LEVEL OF FUNCTION: Lumbar Spine AROM Lumbar Flexion: Normal Lumbar Extension: Major limitation Lumbar R Side-Bend: Minimal limitation Lumbar L Side-Bend: Moderate limitation Lumbar R Rotation: Minimal limitation Lumbar L Rotation: Minimal limitation LE Strength Trunk Strength: 3/5 grossly R LE Strength: 4/5 L LE Strength: 4-/5 Education: Education Learning/educational needs: Home exercise program, Plan of Care, Changes in Plan of Care, Posture, Body Mechanics TREATMENT: PT Treatment Interventions: Therapeutic Exercise, Manual Therapy Evaluation Therapeutic Exercise: 1: *SKC 3x30 sec 2: *DKC 3x30 sec 3: *TA bracing 3x10, 5 sec holds Skilled Intervention: Patient was educated in proper exercise technique and purpose for exercises. Skilled judgment was used in selection of appropriate interventions. Provided written instruction for home exercise program to facilitate proper performance and compliance. Correct performance of therapeutic exercises was facilitated with verbal, visual, and tactile cuing. Manual Therapy: 1: Manual lumbar belt traction x12 min with feet on stool and pull to tolerance Skilled Intervention: Manual skills to improve joint mobility, ROM, and decrease pain. Utilized anatomy knowledge of the therapist, and assessment of patient's response to intervention. Billing * Evaluation Low Complexity: 1 Unit Therapeutic Exercise Treatment Minutes: 12 Manual TherapyTreatment Minutes: 12 Skilled Treatment Time Minutes (timed and untimed codes): 39 Total Session Time (minutes): 39 Session Start Time : 1135 Session Stop Time : 1214 Jacobo Fox PT documented in this encounter [facility] 08-02-2023 Miscellaneous Notes Referral faxed Patient calling, she called Dr. Meredith's office to schedule appt but they have not received the consult. Patient asking for it to be resent. Please advise. documented in this encounter [facility] 08-01-2023 Note HNO ID: [id number] Author: Giancarlo Castaneda PA-C Service: ? Author Type: Physician Forger Helper Type: Progress Notes Filed: 08/01/2023 8:47 PM Note Text: 82 year old female with c/o having severe muscle spasms in left lower back Hasn't left house in [address] Higgins put her on prednisone which helped arthritis. Saw Dr. Luu: gave longer taper prednisone, tizanidine. Has fallen twice on tizanidine, everthing went white and fell. Finished prednisone, using heat and cold. Wants pain management consult. Over the weekend woke up with sore throat, could not swallow due to pain Saw Brian Vance who put her on nystatin which is helping. HISTORIES FAMILY HISTORY Problem Relation Age of Onset Coronary Artery Disease Mother Hypertension Mother Coronary Artery Disease Father Hypertension Father Arthritis Father Alcohol/Drug Daughter Diabetes Other Mother's side of family PAST MEDICAL HISTORY Diagnosis Date Atherosclerotic heart disease of [place] coronary artery without angina pectoris Dr. Cardona Cholelithiases Collagenous colitis 04/18/2012 DDD (degenerative disc disease), cervical Dr. Meredith Essential hypertension, benign History of left heart catheterization 10/29/[address] Cardona History of tobacco use Hyperlipidemia LDL goal < 100 04/25/2012 Hypokalemia 11/12/2012 Intestinal disaccharidase deficiencies and disaccharide malabsorption Major depressive disorder, single episode, unspecified Mitral valve disorders(424.0) Other chondrocalcinosis, left knee Systemic lupus erythematosus (HCC) Dr. Higgins Ulcerative colitis without complications ([facility]) 08/29/2015 Unilateral primary osteoarthritis, left knee PAST SURGICAL HISTORY Procedure Laterality Date ARTHROSCOPY KNEE DIAGNOSTIC W/WO SYNOVIAL BX SPX Left 03/07/2018 [facility]-Dr. Viveros ARTHRP KNE CONDYLEANDPLATU MEDIALANDLAT COMPARTMENTS Right 07/14/2020 right total knee COLONOSCOPY FLX DX W/COLLJ SPEC WHEN PFRMD 04/18/2011 Colonoscopy COLONOSCOPY FLX DX W/COLLJ SPEC WHEN PFRMD 05/17/2016 Colonoscopy ESOPHAGOGASTRODUODENOSCOPY TRANSORAL DIAGNOSTIC 11/07/2016 EGD LAPAROSCOPY SURG CHOLECYSTECTOMY 10/17/2011 Cholecystectomy, lap LIG/TRNSXJ FLP TUBE ABDL/VAG APPR UNI/BI Tubal ligation RMVL LENS MATERIAL PHACOFRAGMENTATION ASPIR 08/2009 Cataract Extraction, right eye TONSILLECTOMY AND ADENOIDECTOMY TOTAL ABDOMINAL HYSTERECT W/WO RMVL TUBE OVARY Hysterectomy, GENE Social History Tobacco Use Smoking status: Former Packs/day: 1.00 Years: 15.00 Additional pack years: 0.00 Total pack years: 15.00 Types: Cigarettes Quit date: 1996 Years since quittin. 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) Gastroesophageal Reflux Disease Without Esophagitis Coronary Artery Disease Involving [place] Coronary Artery Ckd (Chronic Kidney Disease) Stage 3, Gfr 30-59 Ml/Min (Hcc) Depression, Major, Recurrent, Moderate (Hcc) Chronic Anxiety 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 1tsp swish in mouth for several minutes, then swallow (or expectorate) 4 times daily until gone. 140 mL 0 tiZANidine (ZANAFLEX) 4 mg tablet Take 1 tablet by mouth every 8 hours as needed (muscle spasms). 20 tablet 0 predniSONE (DELTASONE) 10 mg tablet Take 4 tabs daily x 3 days, then 3 tabs x 3 days, 2 tabs x 3 days, then 1 tab x3 days with food. 30 tablet 0 buPROPion XL (WELLBUTRIN XL) 300 mg 24 hr tablet Take 1 tablet by mouth once daily. 90 tablet 3 methotrexate 2.5 mg tablet Take 6 tablets by mouth one time a week. 24 tablet 0 leucovorin (LEUCOVORIN) 15 mg tablet Take once weekly, 10 to 12 hours after methotrexate administration 12 tablet 3 ergocalciferol 50,000 unit capsule (VITAMIN D2, DRISDOL) Take 1 capsule by mouth one time a week. 12 capsule 3 methotrexate sodium 25 mg/mL soln Inject 15mg (0.6mL) subcutaneously once weekly 12 mL 0 Syringe with Needle, Disp, (BD TUBERCULIN SYRINGE) 1 (more content not included)... [facility] 08-01-2023 Instructions Giancarlo Castaneda PA-C - 08/01/2023 9:50 AM EDT Try to avoid activities which increase pain. Position for comfort with pillows under or between legs to decrease stress on low back and hip when in bed. Sleeping conditions are very important to back health. You need to sleep on a surface that supports your hips in a neutral position. Sagging in the hip or shoulder areas will contribute to muscle irritation. Using a low footstool when sitting upright may also reduce low back pain. Try to arrange seating to allow support in the area where your back curves, especially while watching TV or playing video games. Sitting or standing with a hunched posture will cause or aggravate muscle pain in the neck and low back. Ice or moist heat or both may help with pain and stiffness. Apply for 10-15min as needed. See handouts for exercise and stretching. documented in this encounter [place] [id number] History of Present illness Narrative 82 year old female with c/o having severe muscle spasms in left lower back Hasn't left house in [address] Higgins put her on prednisone which helped arthritis. Saw Dr. Luu: gave longer taper prednisone, tizanidine. Has fallen twice on tizanidine, everthing went white and fell. Finished prednisone, using heat and cold. Wants pain management consult. Over the weekend woke up with sore throat, could not swallow due to pain Saw Brian Vance who put her on nystatin which is helping. HISTORIES FAMILY HISTORY Problem Relation Age of Onset Coronary Artery Disease Mother Hypertension Mother Coronary Artery Disease Father Hypertension Father Arthritis Father Alcohol/Drug Daughter Diabetes Other Mother's side of family PAST MEDICAL HISTORY Diagnosis Date Atherosclerotic heart disease of [place] coronary artery without angina pectoris Dr. Cardona Cholelithiases Collagenous colitis 04/18/2012 DDD (degenerative disc disease), cervical Dr. Meredith Essential hypertension, benign History of left heart catheterization 10/29/[address] Cardona History of tobacco use Hyperlipidemia LDL goal < 100 04/25/2012 Hypokalemia 11/12/2012 Intestinal disaccharidase deficiencies and disaccharide malabsorption Major depressive disorder, single episode, unspecified Mitral valve disorders(424.0) Other chondrocalcinosis, left knee Systemic lupus erythematosus (HCC) Dr. Higgins Ulcerative colitis without complications (HCC) 08/29/2015 Unilateral primary osteoarthritis, left knee PAST SURGICAL HISTORY Procedure Laterality Date ARTHROSCOPY KNEE DIAGNOSTIC W/WO SYNOVIAL BX SPX Left 03/07/2018 [facility]-Dr. Viveros ARTHRP KNE CONDYLE&PLATU MEDIAL&LAT COMPARTMENTS Right 07/14/2020 right total knee COLONOSCOPY FLX DX W/COLLJ SPEC WHEN PFRMD 04/18/2011 Colonoscopy COLONOSCOPY FLX DX W/COLLJ SPEC WHEN PFRMD 05/17/2016 Colonoscopy ESOPHAGOGASTRODUODENOSCOPY TRANSORAL DIAGNOSTIC 11/07/2016 EGD LAPAROSCOPY SURG CHOLECYSTECTOMY 10/17/2011 Cholecystectomy, lap LIG/TRNSXJ FLP TUBE ABDL/VAG APPR UNI/BI Tubal ligation RMVL LENS MATERIAL PHACOFRAGMENTATION ASPIR 08/2009 Cataract Extraction, right eye TONSILLECTOMY & ADENOIDECTOMY <AGE 14 TOTAL ABDOMINAL HYSTERECT W/WO RMVL TUBE OVARY Hysterectomy, GENE Social History Tobacco Use Smoking status: Former Packs/day: 1.00 Years: 15.00 Additional pack years: 0.00 Total pack years: 15.00 Types: Cigarettes Quit date: 1996 Years since quittin.7 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) Gastroesophageal Reflux Disease Without Esophagitis Coronary Artery Disease Involving [place] Coronary Artery Ckd (Chronic Kidney Disease) Stage 3, Gfr 30-59 Ml/Min (Hcc) Depression, Major, Recurrent, Moderate (Hcc) Chronic Anxiety 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 1tsp swish in mouth for several minutes, then swallow (or expectorate) 4 times daily until gone. 140 mL 0 tiZANidine (ZANAFLEX) 4 mg tablet Take 1 tablet by mouth every 8 hours as needed (muscle spasms). 20 tablet 0 predniSONE (DELTASONE) 10 mg tablet Take 4 tabs daily x 3 days, then 3 tabs x 3 days, 2 tabs x 3 days, then 1 tab x3 days with food. 30 tablet 0 buPROPion XL (WELLBUTRIN XL) 300 mg 24 hr tablet Take 1 tablet by mouth once daily. 90 tablet 3 methotrexate 2.5 mg tablet Take 6 tablets by mouth one time a week. 24 tablet 0 leucovorin (LEUCOVORIN) 15 mg tablet Take once weekly, 10 to 12 hours after methotrexate administration 12 tablet 3 ergocalciferol 50,000 unit capsule (VITAMIN D2, DRISDOL) Take 1 capsule by mouth one time a week. 12 capsule 3 methotrexate sodium 25 mg/mL soln Inject 15mg (0.6mL) subcutaneously once weekly 12 mL 0 Syringe with Needle, Disp, (BD TUBERCULIN SYRINGE) 1 mL 25 gauge x 5/8 Use once weekly with methotrexate injections 12 Each 3 lisinopril (ZESTRIL) 20 mg tablet Take 20 mg by mouth once daily. potassium chloride (K-TAB) 10 mEq tablet Take 1 tablet by mouth twice daily. 60 tablet 11 atorvastatin (LIPITOR) 20 mg tablet Take 1 tablet by mouth daily at bedtime. For cholesterol. 90 tablet 1 omeprazole (PRILOSEC) 20 mg capsule TAKE 1 CAPSULE BY MOUTH TWICE A DAY 180 capsule 3 amLODIPine (NORVASC) 5 mg tablet Take 1 tablet by mouth once daily. 90 tablet 3 sertraline (ZOLOFT) 100 mg tablet TAKE 1 TABLET BY MOUTH ONCE A DAY 90 tablet 3 clonazePAM (KLONOPIN) 0.5 mg tablet Take one tablet at night daily for insomnia 15 tablet 0 gabapentin (NEURONTIN) 100 mg capsule Take 100 mg by mouth three times daily. Dr Mcdermott carvedilol (COREG) 3.125 mg tablet 3.125 mg twice daily with meals. No current facility-administered medications for this visit. BP Controlled (<130/80) due on 01/25/2023 EXAM: BP 130/80 Pulse 77 Resp 16 Wt 66.2 kg (146 lb) SpO2 96% BMI 22.87 kg/m Pleasant older woman in no acute distress. Alert and oriented all spheres. Normal affect and cognition. Speech normal. No deficits to learning or comprehension. Skin warm, dry, pink to lips and nailbeds. Normal turgor. Respirations regular and unlabored. HEENT: NCAT. No scleral icterus or conjunctival injection. TM's clear. Nose and oropharynx free from injection or lesion. Oral membranes moist and pink, scattered streaks consistent with geographic tongue, no plaque. No cervical lymph nodes. . Right lumbar and piriformis muscles TTP: myofascial release with some improvement in pain Extrem: no clubbing or cyanosis. No edema. Extremities are warm and pink with prompt capillary refill. ASSESSMENT/PLAN: 1. Lumbar pain - ICD9: 724.2, ICD10: M54.50 Continue current medications as needed Ice/ moist heat, lineaments, OTC analgesics as needed. Stretching and posture reviewed with handouts from [facility] and [facility] Let me know if needs additional medication - CONSULT TO PAIN MGT Some of this note may have been copied and pasted for the purpose of history context and comparison and has been adjusted for changes in prior data. documented in this encounter [facility] 07-29-2023 Note HNO ID: [id number] Author: Brian Vance APRN.CAN STACKER Service: ? Author Type: Nurse Practitioner Type: Progress Notes Filed: 07/29/2023 11:42 AM Note Text: Chief Complaint Patient presents with: sores in mouth: X 2 days HPI Dina Hester is a 82 year old female who presents here today for Above Complaints.. Pt reports she woke up Saturday morning with pain and difficulty swallowing and multiple sores in mouth. Pt had been diagnosed with lupus and then followed up with Dr. Clay who stated she did not have lupus. Pt states difficulty swallowing pills. Denies fever. Been taking tylenol without relief. Pt states she messaged Dr. Clay who thinks this could be related to UC. Past medical history, appointments, medications, allergies reviewed. Previous Medical History PAST MEDICAL HISTORY Diagnosis Date Atherosclerotic heart disease of [place] coronary artery without angina pectoris Dr. Cardona Cholelithiases Collagenous colitis 04/18/2012 DDD (degenerative disc disease), cervical Dr. Meredith Essential hypertension, benign History of left heart catheterization 10/29/[address] Cardona History of tobacco use Hyperlipidemia LDL goal < 100 04/25/2012 Hypokalemia 11/12/2012 Intestinal disaccharidase deficiencies and disaccharide malabsorption Major depressive disorder, single episode, unspecified Mitral valve disorders(424.0) Other chondrocalcinosis, left knee Systemic lupus erythematosus (HCC) Dr. Higgins Ulcerative colitis without complications (HCC) 08/29/2015 Unilateral primary osteoarthritis, left knee Previous Surgical History PAST SURGICAL HISTORY Procedure Laterality Date ARTHROSCOPY KNEE DIAGNOSTIC W/WO SYNOVIAL BX SPX Left 03/07/2018 [facility]-Dr. Viveros ARTHRP KNE CONDYLEANDPLATU MEDIALANDLAT COMPARTMENTS Right 07/14/2020 right total knee COLONOSCOPY FLX DX W/COLLJ SPEC WHEN PFRMD 04/18/2011 Colonoscopy COLONOSCOPY FLX DX W/COLLJ SPEC WHEN PFRMD 05/17/2016 Colonoscopy ESOPHAGOGASTRODUODENOSCOPY TRANSORAL DIAGNOSTIC 11/07/2016 EGD LAPAROSCOPY SURG CHOLECYSTECTOMY 10/17/2011 Cholecystectomy, lap LIG/TRNSXJ FLP TUBE ABDL/VAG APPR UNI/BI Tubal ligation RMVL LENS MATERIAL PHACOFRAGMENTATION ASPIR 08/2009 Cataract Extraction, right eye TONSILLECTOMY AND ADENOIDECTOMY TOTAL ABDOMINAL HYSTERECT W/WO RMVL TUBE OVARY Hysterectomy, GENE Family History FAMILY HISTORY Problem Relation Age of Onset Coronary Artery Disease Mother Hypertension Mother Coronary Artery Disease Father Hypertension Father Arthritis Father Alcohol/Drug Daughter Diabetes Other Mother's side of family Patient Allergies ALLERGIES Allergen Reactions Abilify [Aripiprazo* Mental Status Change Bandaid Adhes [Othe* Biaxin [Clarithromy* Darvon [Propoxyphen* Entex La [Phenyleph* Erythromycin Oxycodone Intolerance Mental Status Changes-Hallucinating. Pseudoephr [Other] Sulfa (Sulfonamide * Vicodin [Hydrocodon* itching Current Medications Current Outpatient Medications on File Prior to Visit Medication Sig tiZANidine (ZANAFLEX) 4 mg tablet Take 1 tablet by mouth every 8 hours as needed (muscle spasms). predniSONE (DELTASONE) 10 mg tablet Take 4 tabs daily x 3 days, then 3 tabs x 3 days, 2 tabs x 3 days, then 1 tab x3 days with food. buPROPion XL (WELLBUTRIN XL) 300 mg 24 hr tablet Take 1 tablet by mouth once daily. methotrexate 2.5 mg tablet Take 6 tablets by mouth one time a week. leucovorin (LEUCOVORIN) 15 mg tablet Take once weekly, 10 to 12 hours after methotrexate administration ergocalciferol 50,000 unit capsule (VITAMIN D2, DRISDOL) Take 1 capsule by mouth one time a week. methotrexate sodium 25 mg/mL soln Inject 15mg (0.6mL) subcutaneously once weekly Syringe with Needle, Disp, (BD TUBERCULIN SYRINGE) 1 mL 25 gauge x 5/8 Use once weekly with methotrexate injections lisinopril (ZESTRIL) 20 mg tablet Take 20 mg by mouth once daily. potassium chloride (K-TAB) 10 mEq tablet Take 1 tablet by mouth twice daily. atorvastatin (LIPITOR) 20 mg tablet Take 1 tablet by mouth daily at bedtime. For cholesterol. omeprazole (PRILOSEC) 20 mg capsule TAKE 1 CAPSULE BY MOUTH TWICE A DAY amLODIPine (NORVASC) 5 mg tablet Take 1 tablet by mouth once daily. sertraline (ZOLOFT) 100 mg tablet TAKE 1 TABLET BY MOUTH ONCE A DAY clonazePAM (KLONOPIN) 0.5 mg tablet Take one tablet at night daily for insomnia gabapentin (NEURONTIN) 100 mg capsule Take 100 mg by mouth three times daily. Dr Mcdermott carvedilol (COREG) 3.125 mg tablet 3.125 mg twice daily with meals. No current facility-administered medications on file prior to visit. Social History Social History Tobacco Use Smoking status: Former Packs/day: 1.00 Years: 15.00 Additional pack years: 0.00 Total pack years: 15.00 Types: Cigarettes Quit date: 1996 Years since quittin. Smokeless tobacco: Never Substance Use Topics Alcohol use: Yes C (more content not included)... [facility] 07-29-2023 Note HNO ID: [id number] Author: Cynthia Meza RDMS Service: ? Author Type: Regional Planner Type: Progress Notes Filed: 07/29/2023 2:00 PM Note Text: Radiology Service Progress Note PATIENT NAME: Dina Hester DATE OF SERVICE: July 29, 2023 TIME: 2:00 PM PATIENT IDENTITY VERIFICATION COMPLETED USING TWO (2) IDENTIFIERS: Name and Date of confirmed by patient verbally. FALL SCREENING: Has the patient had 2 falls in the last year or 1 fall with injury or currently using an Ambulatory Assistive Device (Walker, Cane, Wheelchair, Crutches, etc.)? No PATIENT GENDER DATA: Female. status: : No status: NO. PATIENT RELEVANT IMPLANT DATA REVIEWED: Not Applicable RADIOLOGY DEPARTMENT: Ultrasound PERIPHERAL IV DATA: Not applicable SIGNED BY: Cynthia Meza RDMS RVT July 29, 2023 2:00 PM [facility] 07-29-2023 History of Present illness Narrative Chief Complaint Patient presents with: sores in mouth: X 2 days HPI Dina Hester is a 82 year old female who presents here today for Above Complaints.. Pt reports she woke up Saturday morning with pain and difficulty swallowing and multiple sores in mouth. Pt had been diagnosed with lupus and then followed up with Dr. Clay who stated she did not have lupus. Pt states difficulty swallowing pills. Denies fever. Been taking tylenol without relief. Pt states she messaged Dr. Clay who thinks this could be related to UC. Past medical history, appointments, medications, allergies reviewed. Previous Medical History PAST MEDICAL HISTORY Diagnosis Date Atherosclerotic heart disease of [place] coronary artery without angina pectoris Dr. Cardona Cholelithiases Collagenous colitis 04/18/2012 DDD (degenerative disc disease), cervical Dr. Meredith Essential hypertension, benign History of left heart catheterization 10/29/[address] Cardona History of tobacco use Hyperlipidemia LDL goal < 100 04/25/2012 Hypokalemia 11/12/2012 Intestinal disaccharidase deficiencies and disaccharide malabsorption Major depressive disorder, single episode, unspecified Mitral valve disorders(424.0) Other chondrocalcinosis, left knee Systemic lupus erythematosus (HCC) Dr. Higgins Ulcerative colitis without complications (HCC) 08/29/2015 Unilateral primary osteoarthritis, left knee Previous Surgical History PAST SURGICAL HISTORY Procedure Laterality Date ARTHROSCOPY KNEE DIAGNOSTIC W/WO SYNOVIAL BX SPX Left 03/07/2018 [facility]-Dr. Viveros ARTHRP KNE CONDYLE&PLATU MEDIAL&LAT COMPARTMENTS Right 07/14/2020 right total knee COLONOSCOPY FLX DX W/COLLJ SPEC WHEN PFRMD 04/18/2011 Colonoscopy COLONOSCOPY FLX DX W/COLLJ SPEC WHEN PFRMD 05/17/2016 Colonoscopy ESOPHAGOGASTRODUODENOSCOPY TRANSORAL DIAGNOSTIC 11/07/2016 EGD LAPAROSCOPY SURG CHOLECYSTECTOMY 10/17/2011 Cholecystectomy, lap LIG/TRNSXJ FLP TUBE ABDL/VAG APPR UNI/BI Tubal ligation RMVL LENS MATERIAL PHACOFRAGMENTATION ASPIR 08/2009 Cataract Extraction, right eye TONSILLECTOMY & ADENOIDECTOMY <AGE 14 TOTAL ABDOMINAL HYSTERECT W/WO RMVL TUBE OVARY Hysterectomy, GENE Family History FAMILY HISTORY Problem Relation Age of Onset Coronary Artery Disease Mother Hypertension Mother Coronary Artery Disease Father Hypertension Father Arthritis Father Alcohol/Drug Daughter Diabetes Other Mother's side of family Patient Allergies ALLERGIES Allergen Reactions Abilify [Aripiprazo* Mental Status Change Bandaid Adhes [Othe* Biaxin [Clarithromy* Darvon [Propoxyphen* Entex La [Phenyleph* Erythromycin Oxycodone Intolerance Mental Status Changes-Hallucinating. Pseudoephr [Other] Sulfa (Sulfonamide * Vicodin [Hydrocodon* itching Current Medications Current Outpatient Medications on File Prior to Visit Medication Sig tiZANidine (ZANAFLEX) 4 mg tablet Take 1 tablet by mouth every 8 hours as needed (muscle spasms). predniSONE (DELTASONE) 10 mg tablet Take 4 tabs daily x 3 days, then 3 tabs x 3 days, 2 tabs x 3 days, then 1 tab x3 days with food. buPROPion XL (WELLBUTRIN XL) 300 mg 24 hr tablet Take 1 tablet by mouth once daily. methotrexate 2.5 mg tablet Take 6 tablets by mouth one time a week. leucovorin (LEUCOVORIN) 15 mg tablet Take once weekly, 10 to 12 hours after methotrexate administration ergocalciferol 50,000 unit capsule (VITAMIN D2, DRISDOL) Take 1 capsule by mouth one time a week. methotrexate sodium 25 mg/mL soln Inject 15mg (0.6mL) subcutaneously once weekly Syringe with Needle, Disp, (BD TUBERCULIN SYRINGE) 1 mL 25 gauge x 5/8 Use once weekly with methotrexate injections lisinopril (ZESTRIL) 20 mg tablet Take 20 mg by mouth once daily. potassium chloride (K-TAB) 10 mEq tablet Take 1 tablet by mouth twice daily. atorvastatin (LIPITOR) 20 mg tablet Take 1 tablet by mouth daily at bedtime. For cholesterol. omeprazole (PRILOSEC) 20 mg capsule TAKE 1 CAPSULE BY MOUTH TWICE A DAY amLODIPine (NORVASC) 5 mg tablet Take 1 tablet by mouth once daily. sertraline (ZOLOFT) 100 mg tablet TAKE 1 TABLET BY MOUTH ONCE A DAY clonazePAM (KLONOPIN) 0.5 mg tablet Take one tablet at night daily for insomnia gabapentin (NEURONTIN) 100 mg capsule Take 100 mg by mouth three times daily. Dr Mcdermott carvedilol (COREG) 3.125 mg tablet 3.125 mg twice daily with meals. No current facility-administered medications on file prior to visit. Social History Social History Tobacco Use Smoking status: Former Packs/day: 1.00 Years: 15.00 Additional pack years: 0.00 Total pack years: 15.00 Types: Cigarettes Quit date: 1996 Years since quittin.7 Smokeless tobacco: Never Substance Use Topics Alcohol use: Yes Comment: RARELY Drug use: No Review of Symptoms REVIEW OF SYSTEMS SEE HPI EXAM: BP 138/70 Pulse 78 Temp 37.3 C (99.2 F) Resp 14 Wt 65.3 kg (144 lb) BMI 22.55 kg/m General Appearance: Well appearing, alert, in no acute distress, well-hydrated, well nourished.. Oropharynx: Positive findings: thrush. Health Maintenance List BP Controlled (<130/80) due on 01/25/2023 MMR Vaccine(2 of 2 - Risk 2-dose series) due on 08/27/2023 Meningococcal B Vaccine: Consider Based On Risk(1 of 4 - Increased Risk) due on 08/27/2023 Shingrix Vaccine(1 of 2) due on 08/27/2023 Covid-19 Vaccine(5 - Moderna risk series) due on 07/12/2024 LDL Cholesterol due on 04/08/2024 Serum Creatinine due on 07/09/2024 Hemoglobin/Hematocrit due on 07/09/2024 Annual PCP Team Chronic Disease Visit due on 07/19/2024 DTaP,Tdap,Td Vaccine(3 - Tdap) due on 08/29/2025 Diabetes Screening due on 06/05/2026 Hepatitis B Vaccine Completed Bone Density Screening Completed Hepatitis A Vaccine Completed Influenza Vaccine Completed Advance Directive Discussion Completed Pneumococcal Vaccine: 65+ Completed Colorectal Cancer Screening Discontinued ASSESSMENT/PLAN: 1. Oral thrush - ICD9: 112.0, ICD10: B37.0 - [place]STAT[place] 100,000 UNIT/ML ORAL SUSPENSION I have personally seen and examined the patient and performed the medical-decision making components. I have reviewed the Advanced Practice Registered Nurse (ROLLER LEVELER) student's documentation and verified the findings in the note as written. Any additions or changes are noted in bold/italics. Brian Vance APRN.CAN STACKER documented in this encounter [facility] 07-29-2023 History of Present illness Narrative Radiology Service Progress Note PATIENT NAME: Dina Hester DATE OF SERVICE: July 29, 2023 TIME: 2:00 PM PATIENT IDENTITY VERIFICATION COMPLETED USING TWO (2) IDENTIFIERS: Name and Date of confirmed by patient verbally. FALL SCREENING: Has the patient had 2 falls in the last year or 1 fall with injury or currently using an Ambulatory Assistive Device (Walker, Cane, Wheelchair, Crutches, etc.)? No PATIENT GENDER DATA: Female. status: : No status: NO. PATIENT RELEVANT IMPLANT DATA REVIEWED: Not Applicable RADIOLOGY DEPARTMENT: Ultrasound PERIPHERAL IV DATA: Not applicable SIGNED BY: Cynthia Meza RDMS RVT July 29, 2023 2:00 PM documented in this encounter [facility] 07-19-2023 Note HNO ID: [id number] Author: Alejo Luu MD Service: ? Author Type: Physician Type: Progress Notes Filed: 07/19/2023 9:11 AM Note Text: Patient presents with: ER F/U HPI: Patient presents today for office visit for ER follow up. In wheelchair. Seen in [facility] on 07/16/23 sacroiliac joint pain. Referred to thinking it was a pinched nerve in her lower back. No radiation down her leg. Denies trauma or injury to area. Takes Gabapentin for other issues along with Tylenol 1000 mg which is not helping her pain. Has been alternating heat and ice. Pain is worse with movement. Hard time sitting. X-ray did not show evidence of displaced pelvic or hip fracture. Has ddd in lower lumbar spine. Was given IM kenalog in ER as well. Laying on her side in bed helps. No issues controlling bowel or bladder. No radiation of pain down the leg. No new numbness or weakness. Is also on a prednisone. Using 10 mg once a day. Not doing any better today. Refers to being worse. MEDICATIONS: Current Outpatient Medications Medication Sig buPROPion XL (WELLBUTRIN XL) 300 mg 24 hr tablet Take 1 tablet by mouth once daily. methotrexate 2.5 mg tablet Take 6 tablets by mouth one time a week. leucovorin (LEUCOVORIN) 15 mg tablet Take once weekly, 10 to 12 hours after methotrexate administration ergocalciferol 50,000 unit capsule (VITAMIN D2, DRISDOL) Take 1 capsule by mouth one time a week. methotrexate sodium 25 mg/mL soln Inject 15mg (0.6mL) subcutaneously once weekly Syringe with Needle, Disp, (BD TUBERCULIN SYRINGE) 1 mL 25 gauge x 5/8 Use once weekly with methotrexate injections lisinopril (ZESTRIL) 20 mg tablet Take 20 mg by mouth once daily. potassium chloride (K-TAB) 10 mEq tablet Take 1 tablet by mouth twice daily. atorvastatin (LIPITOR) 20 mg tablet Take 1 tablet by mouth daily at bedtime. For cholesterol. omeprazole (PRILOSEC) 20 mg capsule TAKE 1 CAPSULE BY MOUTH TWICE A DAY amLODIPine (NORVASC) 5 mg tablet Take 1 tablet by mouth once daily. sertraline (ZOLOFT) 100 mg tablet TAKE 1 TABLET BY MOUTH ONCE A DAY clonazePAM (KLONOPIN) 0.5 mg tablet Take one tablet at night daily for insomnia gabapentin (NEURONTIN) 100 mg capsule Take 100 mg by mouth three times daily. Dr Mcdermott carvedilol (COREG) 3.125 mg tablet 3.125 mg twice daily with meals. No current facility-administered medications for this visit. ALLERGIES: ALLERGIES Allergen Reactions Abilify [Aripiprazo* Mental Status Change Bandaid Adhes [Othe* Biaxin [Clarithromy* Darvon [Propoxyphen* Entex La [Phenyleph* Erythromycin Oxycodone Intolerance Mental Status Changes-Hallucinating. Pseudoephr [Other] Sulfa (Sulfonamide * Vicodin [Hydrocodon* itching PAST MEDICAL HISTORY Diagnosis Date Atherosclerotic heart disease of [place] coronary artery without angina pectoris Dr. Cardona Cholelithiases Collagenous colitis 04/18/2012 DDD (degenerative disc disease), cervical Dr. Meredith Essential hypertension, benign History of left heart catheterization 10/29/[address] Cardona History of tobacco use Hyperlipidemia LDL goal < 100 04/25/2012 Hypokalemia 11/12/2012 Intestinal disaccharidase deficiencies and disaccharide malabsorption Major depressive disorder, single episode, unspecified Mitral valve disorders(424.0) Other chondrocalcinosis, left knee Systemic lupus erythematosus (HCC) Dr. Higgins Ulcerative colitis without complications (HCC) 08/29/2015 Unilateral primary osteoarthritis, left knee PAST SURGICAL HISTORY Procedure Laterality Date ARTHROSCOPY KNEE DIAGNOSTIC W/WO SYNOVIAL BX SPX Left 03/07/2018 [facility]-Dr. Viveros ARTHRP KNE CONDYLEANDPLATU MEDIALANDLAT COMPARTMENTS Right 07/14/2020 right total knee COLONOSCOPY FLX DX W/COLLJ SPEC WHEN PFRMD 04/18/2011 Colonoscopy COLONOSCOPY FLX DX W/COLLJ SPEC WHEN PFRMD 05/17/2016 Colonoscopy ESOPHAGOGASTRODUODENOSCOPY TRANSORAL DIAGNOSTIC 11/07/2016 EGD LAPAROSCOPY SURG CHOLECYSTECTOMY 10/17/2011 Cholecystectomy, lap LIG/TRNSXJ FLP TUBE ABDL/VAG APPR UNI/BI Tubal ligation RMVL LENS MATERIAL PHACOFRAGMENTATION ASPIR 08/2009 Cataract Extraction, right eye TONSILLECTOMY AND ADENOIDECTOMY TOTAL ABDOMINAL HYSTERECT W/WO RMVL TUBE OVARY Hysterectomy, GENE FAMILY HISTORY Problem Relation Age of Onset Coronary Artery Disease Mother Hypertension Mother Coronary Artery Disease Father Hypertension Father Arthritis Father Alcohol/Drug Daughter Diabetes Other Mother's side of family Social History Tobacco Use Smoking status: Former Packs/day: 1.00 Years: 15.00 Additional pack years: 0.00 Total pack years: 15.00 Types: Cigarettes Quit date: 1996 Years since quittin.7 Smokeless tobacco: Never Substance Use Topics Alcohol use: Yes Comment: RARELY Drug use: No Reviewed current medications, allergies, past medical history, surgical history, family history and social hi (more content not included)... [facility] 07-18-2023 Miscellaneous Notes This was discussed with patient at visit and documented in notes. Rx Vit D3 50k weekly Thanks, Lalit Castaneda PA-C Carrie- Dr. Hester [facility] [place], reports Dr. Hester viewed the calcium & vit D, February labs- they were normal, then Dr. Hester viewed the Jun labs. Asking pcp to normalize the Vit D level, after that is normalized, it should normalize the PTH level. documented in this encounter [facility] 07-18-2023 Miscellaneous Notes Carrie for Dr Hester's office at [facility] states she received referral but did not receive recent calcium & vit D levels & SHARIFA notes. Info faxed to her at [phone] as requested. Morenita Van LPN documented in this encounter [facility] 07-16-2023 Miscellaneous Notes Spoke with patient and she is agreeable to go to ER. Maya Parra Ma If that severe, should go to ED: need to rule out issues like compression fracture, herniated disc, malignancy. If still refuses: Can try steroid, muscle relaxer Schedule as soon as possible for follow up with one of us. The following approved medication requests have been transmitted electronically. Requested Prescriptions Signed Prescriptions Disp Refills predniSONE (DELTASONE) 20 mg tablet 10 tablet 0 Sig: Take 2 tablets by mouth once daily for 5 days. metaxalone (SKELAXIN) 800 mg tablet 30 tablet 1 Sig: Take 1 tablet by mouth three times daily as needed for pain. Giancarlo Castaneda PA-C Triage Protocol Advised: ER now due to severe pain. Pt reluctant. Asking if Lalit Castaneda will prescribe her something for pain. Please advise patient. Thank you. Reason for Disposition Patient sounds very sick or weak to the triager Answer Assessment - Initial Assessment Questions Patient calling with complaint of severe back pain, left back below waist, between waist and hip. Does not radiate. Sharp and burning pains at times. Constant pain. Reports it began Saturday night. Thinks it's a pinched nerve possibly. Using heat and ice with no real relief. Reports can barely get from her bedroom to her bathroom. Only able to get up to make some toast then back to bed. Declining [facility] ER. Has no transportation. Pt tearful on phone. Lives alone and has no assistance. 1. ONSET: Saturday 2. LOCATION: as above 3. SEVERITY: moderate to severe 4. PATTERN: constant but varies in intensity 5. RADIATION: denies 6. CAUSE: as above 7. BACK OVERUSE: denies 8. MEDICATIONS: 9. NEUROLOGIC SYMPTOMS: -no numbness -denies any bladder or bowel changes 10. OTHER SYMPTOMS: denies Protocols used: Back [id number] documented in this encounter [facility] 07-12-2023 Miscellaneous Notes The following approved medication requests have been transmitted electronically. Requested Prescriptions Signed Prescriptions Disp Refills buPROPion XL (WELLBUTRIN XL) 300 mg 24 hr tablet 90 tablet 3 Sig: Take 1 tablet by mouth once daily. Giancarlo Castaneda PA-C documented in this encounter [facility] 07-12-2023 Note HNO ID: [id number] Author: Giancarlo Castaneda PA-C Service: ? Author Type: Physician Forger Helper Type: Progress Notes Filed: 07/12/2023 9:34 AM Note Text: 82 year old female with c/o family issues. Came in to talk about Che. Feels tired everyday. Was told needs to see hot car operator by Dr. Luu in result message Feels out of balance intermittently Not as much pain or muscle aches as when she was told she had lupus. Consult Dr. Clay: identified UC related inflammatory arthritis. Talking Tylenol OTC and gabapentin Pain in right upper shoulder Seeing Dr. [facility] has helped. Came in to talk about Che, daughter living with her currently. Norman told her it was her turn. Acknowledges stealing her medication. Has discussed [facility]. Called Jeanette Tabler counselor: called and left message with Component Latest Ref Rng AND Units 04/08/2023 06/05/2023 07/09/2023 Protein, Total 6.3 - 8.0 g/dL 6.8 Albumin 3.9 - 4.9 g/dL 4.2 Calcium 8.5 - 10.2 mg/dL 10.5 (H) 10.5 (H) Bilirubin, Total 0.2 - 1.3 mg/dL 0.3 Alkaline Phosphatase 34 - 123 U/L 115 AST 13 - 35 U/L 18 ALT 7 - 38 U/L 13 Glucose 74 - 99 mg/dL 79 87 BUN 7 - 21 mg/dL 15 19 Creatinine 0.58 - 0.96 mg/dL 1.00 (H) 1.09 (H) Sodium 136 - 144 mmol/L 141 140 Potassium 3.7 - 5.1 mmol/L 3.6 (L) 5.0 Chloride 97 - 105 mmol/L 104 103 CO2 22 - 30 mmol/L 24 24 Anion Gap 9 - 18 mmol/L 13 13 eGFR >=60 mL/min/1.73mA? 57 (L) 51 (L) Normalized Calcium 1.08 - 1.30 mmol/L 1.39 (H) 1.43 (H) Ionized Calcium 1.08 - 1.30 mmol/L 1.40 (H) 1.49 (H) Vitamin D 25 Hydroxy 31.0 - 80.0 ng/mL 6.5 (L) 26.0 (L) PTH, Intact 15 - 65 pg/mL 289 (H) 97 (H) HISTORIES FAMILY HISTORY Problem Relation Age of Onset Coronary Artery Disease Mother Hypertension Mother Coronary Artery Disease Father Hypertension Father Arthritis Father Alcohol/Drug Daughter Diabetes Other Mother's side of family PAST MEDICAL HISTORY Diagnosis Date Atherosclerotic heart disease of [place] coronary artery without angina pectoris Dr. Cardona Cholelithiases Collagenous colitis 04/18/2012 DDD (degenerative disc disease), cervical Dr. Meredith Essential hypertension, benign History of left heart catheterization 10/29/[address] Cardona History of tobacco use Hyperlipidemia LDL goal < 100 04/25/2012 Hypokalemia 11/12/2012 Intestinal disaccharidase deficiencies and disaccharide malabsorption Major depressive disorder, single episode, unspecified Mitral valve disorders(424.0) Other chondrocalcinosis, left knee Systemic lupus erythematosus (HCC) Dr. Higgins Ulcerative colitis without complications (HCC) 08/29/2015 Unilateral primary osteoarthritis, left knee PAST SURGICAL HISTORY Procedure Laterality Date ARTHROSCOPY KNEE DIAGNOSTIC W/WO SYNOVIAL BX SPX Left 03/07/2018 [facility]-Dr. Viveros ARTHRP KNE CONDYLEANDPLATU MEDIALANDLAT COMPARTMENTS Right 07/14/2020 right total knee COLONOSCOPY FLX DX W/COLLJ SPEC WHEN PFRMD 04/18/2011 Colonoscopy COLONOSCOPY FLX DX W/COLLJ SPEC WHEN PFRMD 05/17/2016 Colonoscopy ESOPHAGOGASTRODUODENOSCOPY TRANSORAL DIAGNOSTIC 11/07/2016 EGD LAPAROSCOPY SURG CHOLECYSTECTOMY 10/17/2011 Cholecystectomy, lap LIG/TRNSXJ FLP TUBE ABDL/VAG APPR UNI/BI Tubal ligation RMVL LENS MATERIAL PHACOFRAGMENTATION ASPIR 08/2009 Cataract Extraction, right eye TONSILLECTOMY AND ADENOIDECTOMY TOTAL ABDOMINAL HYSTERECT W/WO RMVL TUBE OVARY Hysterectomy, GENE Social History Tobacco Use Smoking status: Former Packs/day: 1.00 Years: 15.00 Additional pack years: 0.00 Total pack years: 15.00 Types: Cigarettes Quit date: 1996 Years since quittin.7 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) Gastroesophageal Reflux Disease Without Esophagitis Coronary Artery Disease Involving [place] Coronary Artery Ckd (Chronic Kidney Disease) Stage 3, Gfr 30-59 Ml/Min (Hcc) Depression, Major, Recurrent, Moderate (Hcc) Chronic Anxiety 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 [facility] 07-12-2023 History of Present illness Narrative 82 year old female with c/o family issues. Came in to talk about Che. Feels tired everyday. Was told needs to see hot car operator by Dr. Luu in result message Feels out of balance intermittently Not as much pain or muscle aches as when she was told she had lupus. Consult Dr. Clay: identified UC related inflammatory arthritis. Talking Tylenol OTC and gabapentin Pain in right upper shoulder Seeing Dr. [facility] has helped. Came in to talk about Che, daughter living with her currently. Norman told her it was her turn. Acknowledges stealing her medication. Has discussed [employer] as option. Called Jeanette Tabler counselor: called and left message with Component Latest Ref Rng & Units 04/08/2023 06/05/2023 07/09/2023 Protein, Total 6.3 - 8.0 g/dL 6.8 Albumin 3.9 - 4.9 g/dL 4.2 Calcium 8.5 - 10.2 mg/dL 10.5 (H) 10.5 (H) Bilirubin, Total 0.2 - 1.3 mg/dL 0.3 Alkaline Phosphatase 34 - 123 U/L 115 AST 13 - 35 U/L 18 ALT 7 - 38 U/L 13 Glucose 74 - 99 mg/dL 79 87 BUN 7 - 21 mg/dL 15 19 Creatinine 0.58 - 0.96 mg/dL 1.00 (H) 1.09 (H) Sodium 136 - 144 mmol/L 141 140 Potassium 3.7 - 5.1 mmol/L 3.6 (L) 5.0 Chloride 97 - 105 mmol/L 104 103 CO2 22 - 30 mmol/L 24 24 Anion Gap 9 - 18 mmol/L 13 13 eGFR >=60 mL/min/1.73m 57 (L) 51 (L) Normalized Calcium 1.08 - 1.30 mmol/L 1.39 (H) 1.43 (H) Ionized Calcium 1.08 - 1.30 mmol/L 1.40 (H) 1.49 (H) Vitamin D 25 Hydroxy 31.0 - 80.0 ng/mL 6.5 (L) 26.0 (L) PTH, Intact 15 - 65 pg/mL 289 (H) 97 (H) HISTORIES FAMILY HISTORY Problem Relation Age of Onset Coronary Artery Disease Mother Hypertension Mother Coronary Artery Disease Father Hypertension Father Arthritis Father Alcohol/Drug Daughter Diabetes Other Mother's side of family PAST MEDICAL HISTORY Diagnosis Date Atherosclerotic heart disease of [place] coronary artery without angina pectoris Dr. Cardona Cholelithiases Collagenous colitis 04/18/2012 DDD (degenerative disc disease), cervical Dr. Meredith Essential hypertension, benign History of left heart catheterization 10/29/[address] Cardona History of tobacco use Hyperlipidemia LDL goal < 100 04/25/2012 Hypokalemia 11/12/2012 Intestinal disaccharidase deficiencies and disaccharide malabsorption Major depressive disorder, single episode, unspecified Mitral valve disorders(424.0) Other chondrocalcinosis, left knee Systemic lupus erythematosus (HCC) Dr. Higgins Ulcerative colitis without complications (HCC) 08/29/2015 Unilateral primary osteoarthritis, left knee PAST SURGICAL HISTORY Procedure Laterality Date ARTHROSCOPY KNEE DIAGNOSTIC W/WO SYNOVIAL BX SPX Left 03/07/2018 [facility]-Dr. Viveros ARTHRP KNE CONDYLE&PLATU MEDIAL&LAT COMPARTMENTS Right 07/14/2020 right total knee COLONOSCOPY FLX DX W/COLLJ SPEC WHEN PFRMD 04/18/2011 Colonoscopy COLONOSCOPY FLX DX W/COLLJ SPEC WHEN PFRMD 05/17/2016 Colonoscopy ESOPHAGOGASTRODUODENOSCOPY TRANSORAL DIAGNOSTIC 11/07/2016 EGD LAPAROSCOPY SURG CHOLECYSTECTOMY 10/17/2011 Cholecystectomy, lap LIG/TRNSXJ FLP TUBE ABDL/VAG APPR UNI/BI Tubal ligation RMVL LENS MATERIAL PHACOFRAGMENTATION ASPIR 08/2009 Cataract Extraction, right eye TONSILLECTOMY & ADENOIDECTOMY <AGE 14 TOTAL ABDOMINAL HYSTERECT W/WO RMVL TUBE OVARY Hysterectomy, GENE Social History Tobacco Use Smoking status: Former Packs/day: 1.00 Years: 15.00 Additional pack years: 0.00 Total pack years: 15.00 Types: Cigarettes Quit date: 1996 Years since quittin. 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) Gastroesophageal Reflux Disease Without Esophagitis Coronary Artery Disease Involving [place] Coronary Artery Ckd (Chronic Kidney Disease) Stage 3, Gfr 30-59 Ml/Min (Hcc) Depression, Major, Recurrent, Moderate (Hcc) Chronic Anxiety 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 24 tablet 0 leucovorin (LEUCOVORIN) 15 mg tablet Take once weekly, 10 to 12 hours after methotrexate administration 12 tablet 3 ergocalciferol 50,000 unit capsule (VITAMIN D2, DRISDOL) Take 1 capsule by mouth one time a week. 12 capsule 3 buPROPion XL (WELLBUTRIN XL) 300 mg 24 hr tablet Take 1 tablet by mouth once daily. Claims pills were stolen by daughter 30 tablet 0 methotrexate sodium 25 mg/mL soln Inject 15mg (0.6mL) subcutaneously once weekly 12 mL 0 Syringe with Needle, Disp, (BD TUBERCULIN SYRINGE) 1 mL 25 gauge x 5/8 Use once weekly with methotrexate injections 12 Each 3 lisinopril (ZESTRIL) 20 mg tablet Take 20 mg by mouth once daily. potassium chloride (K-TAB) 10 mEq tablet Take 1 tablet by mouth twice daily. 60 tablet 11 atorvastatin (LIPITOR) 20 mg tablet Take 1 tablet by mouth daily at bedtime. For cholesterol. 90 tablet 1 buPROPion XL (WELLBUTRIN XL) 300 mg 24 hr tablet Take 1 tablet by mouth once daily. 90 tablet 3 omeprazole (PRILOSEC) 20 mg capsule TAKE 1 CAPSULE BY MOUTH TWICE A DAY 180 capsule 3 amLODIPine (NORVASC) 5 mg tablet Take 1 tablet by mouth once daily. 90 tablet 3 sertraline (ZOLOFT) 100 mg tablet TAKE 1 TABLET BY MOUTH ONCE A DAY 90 tablet 3 clonazePAM (KLONOPIN) 0.5 mg tablet Take one tablet at night daily for insomnia 15 tablet 0 gabapentin (NEURONTIN) 100 mg capsule Take 100 mg by mouth three times daily. Dr Mcdermott carvedilol (COREG) 3.125 mg tablet 3.125 mg twice daily with meals. No current facility-administered medications for this visit. Covid-19 Vaccine(5 - Moderna risk series) due on 2022 Influenza Vaccine(1) due on 06/28/2023 EXAM: BP 118/76 Pulse 65 Resp 14 Wt 66.7 kg (147 lb) SpO2 96% BMI 23.02 kg/m Pleasant adult woman in no acute distress. Alert and oriented all spheres. Normal affect and cognition. Speech normal. No deficits to learning or comprehension. Skin warm, dry, pink to lips and nailbeds. Normal turgor. Respirations regular and unlabored. Extrem: no clubbing or cyanosis. Edema: none. Extremities are warm and pink with prompt capillary refill. ASSESSMENT/PLAN: 1. 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 Conflict between patient and family - ICD9: V61.9, ICD10: Z63.9 Dina understands enablement and the unfortunate state to which her daughter has brought herself. I have encouraged her to enforce boundaries, including reporting theft of medications, and declining further support with housing as a boundary. 25/35 minute visit in counseling/ education face to face Giancarlo Castaneda PA-C documented in this encounter [facility] 07-10-2023 Miscellaneous Notes Referral faxed. Lorena Daley Spoke with patient. Given message from provider's office. Patient verbalizes understanding. She requests referral be sent to Dr. Juan Hester @ [facility]. Jennie Mark RN Message left for patient to return call. Lorena Daley Her vit d is almost to normal. Her pth has improved but her calcium is even higher. Recommend seeing endo to be on safe side for her calcium documented in this encounter [facility] 07-10-2023 Miscellaneous Notes PT returning phone call stating she is still on the oral please advise. Attempted to reach patient. No answer. LMTCB. PSR please relay message as written below. Please document and route back to our pool. Per Dr. Monreal: Could you see if she is still on the oral Methotrexate or if she has restarted the injectable? Looks like she was supposed to be on injectable but it was on backorder so that's why oral was given in the interim. Just don't want her to have double! Thank you Attempted to reach patient. No answer. LMTCB. PSR please relay message as written below. Please document and route back to our pool. Per Dr. Monreal: Could you see if she is still on the oral Methotrexate or if she has restarted the injectable? Looks like she was supposed to be on injectable but it was on backorder so that's why oral was given in the interim. Just don't want her to have double! Thank you LABS: Hemoglobin (g/dL) Date Value 06/05/2023 12.9 08/26/2020 12.7 Hematocrit (%) Date Value 06/05/2023 39.7 08/26/2020 39.4 WBC (k/uL) Date Value 06/05/2023 6.80 08/26/2020 6.34 Platelet Count (k/uL) Date Value 06/05/2023 250 08/26/2020 278 AST Date Value Ref Range Status 06/05/2023 19 13 - 35 U/L Final ALT Date Value Ref Range Status 06/05/2023 14 7 - 38 U/L Final Creatinine Date Value Ref Range Status 06/05/2023 1.09 (H) 0.58 - 0.96 mg/dL Final Nicole Turcios MA Pharmacy calling on patient's behalf to request refill of the following: methotrexate 2.5 mg tablet RX INSTRUCTIONS: Patient aware RX escripted to [facility] pharmacy. Pharmacy initiated this request. No need to notify patient. Geri Boss documented in this encounter [facility] 06-18-2023 Note HNO ID: [id number] Author: Fernando Vazquez RT(R) Service: ? Author Type: Technologist Type: Progress Notes Filed: 06/18/2023 1:41 PM Note Text: Radiology Service Progress Note PATIENT NAME: Dina Hester DATE OF SERVICE: June 18, 2023 TIME: 12:55 PM PATIENT IDENTITY VERIFICATION COMPLETED USING TWO (2) IDENTIFIERS: Name and Date of confirmed by patient verbally. FALL SCREENING: Has the patient had 2 falls in the last year or 1 fall with injury or currently using an Ambulatory Assistive Device (Walker, Cane, Wheelchair, Crutches, etc.)? Yes, Patient High Risk for Falls What interventions were put in place to prevent falls during this visit? Increased Observations by Caregivers PATIENT GENDER DATA: Female. status: : No status: NO. PATIENT RELEVANT IMPLANT DATA REVIEWED: Not Applicable RADIOLOGY DEPARTMENT: Bone Density PERIPHERAL IV DATA: Not applicable SIGNED BY: RT Thang(R) June 18, 2023 12:55 PM [facility] 06-18-2023 History of Present illness Narrative Radiology Service Progress Note PATIENT NAME: Dina Hester DATE OF SERVICE: June 18, 2023 TIME: 12:55 PM PATIENT IDENTITY VERIFICATION COMPLETED USING TWO (2) IDENTIFIERS: Name and Date of confirmed by patient verbally. FALL SCREENING: Has the patient had 2 falls in the last year or 1 fall with injury or currently using an Ambulatory Assistive Device (Walker, Cane, Wheelchair, Crutches, etc.)? Yes, Patient High Risk for Falls What interventions were put in place to prevent falls during this visit? Increased Observations by Caregivers PATIENT GENDER DATA: Female. status: : No status: NO. PATIENT RELEVANT IMPLANT DATA REVIEWED: Not Applicable RADIOLOGY DEPARTMENT: Bone Density PERIPHERAL IV DATA: Not applicable SIGNED BY: RT Thang(R) June 18, 2023 12:55 PM documented in this encounter [facility] 06-06-2023 Miscellaneous Notes Patient notified. Verbalized understanding. Her calcium is high, parathyroid hormone is high. Her vit d is also quite low. I would start her on vit d and then recheck labs in six weeks. documented in this encounter [facility] 05-23-2023 Miscellaneous Notes The following approved medication requests have been transmitted electronically. Requested Prescriptions Signed Prescriptions Disp Refills buPROPion XL (WELLBUTRIN XL) 300 mg 24 hr tablet 30 tablet 0 Sig: Take 1 tablet by mouth once daily. Claims pills were stolen by daughter Giancarlo Castaneda PA-C See pt message. Pt receives Buproprion through this office received #90 day supply on 03/23/23. Aster Swanson Ma documented in this encounter [facility] 04-29-2023 Miscellaneous Notes Thanks Susan rx sent Patient return call to office. Patient states that she take 6 pills of the Methotrexate 2.5 mg every week on a Saturday to equal 15 mg dose. Patient states that she have enough for 3 weeks. Currently wants to stay on the oral until they receive the injectable solution. Will call back again in the middle of the month, will be waiting to hear back from her pharmacy. Please review pended orders and sign. Thanks Susan Pichardo R.N. Attempted to contact patient. Left message for patient to call office back on voicemail. Susan Pichardo R.N. documented in this encounter [facility] 04-25-2023 Miscellaneous Notes Called [facility] pharmacy. MTX PF is not available(on back order with unknown time when it will be available) Pharmacy has 2 vials left of methotrexate with preservative. They will dispense of what they have. Information verified with pharmacy(phone, fax to our office) Attempted to reach patient. No answer. Left message for patient to reach out to pharmacy, clarification was given and patient is all set to set up delivery. Nicole Turcios MA Fine to dispense whichever they may have in stock. If they have both, would do preservative free. Can you confirm they have the correct contact info for us? And after all is set, can you update ms. Hester about the status of everything? Thanks. Called pharmacy. Pharmacy needs clarification which to dispense to patient. Methotrexate preservative free or with preservative. Please advise. documented in this encounter [facility] 04-19-2023 Miscellaneous Notes Attempted to reach patient. No answer. Left message on patient's voicemail. Script for MTX was send to [facility] home delivery pharmacy and patient is advised to give pharmacy a call to have this medication shipped to her. Patient saw Dr. Clay on 04/15. Patient was told that she would go on methotrexate sodium 5 mg. Her pharmacy initially told her it was out of stock. She went in today to see if they could check with another pharmacy, and she was told it was cancelled along with the needles. She was going to set up an appointment at [facility] to learn how to inject herself. She can be reached at [phone]. ELEANOR Hooks documented in this encounter [facility] 04-17-2023 Miscellaneous Notes Spoke to patient who is aware refills are good none due for filling. Also aware needs to contact [facility] for refill on gabapentin Kita Mendez Ma documented in this encounter [facility] 04-17-2023 Miscellaneous Notes Patient has been identified by name and date of : Yes RX INSTRUCTIONS: Patient aware RX will be sent to pharmacy. No need to notify patient. LAST APPOINTMENT: 04/15/2023 UPCOMING APPOINTMENT: 09/16/2023 LABS: Hemoglobin (g/dL) Date Value 04/08/2023 11.9 08/26/2020 12.7 Hematocrit (%) Date Value 04/08/2023 37.3 08/26/2020 39.4 WBC (k/uL) Date Value 04/08/2023 6.55 08/26/2020 6.34 Platelet Count (k/uL) Date Value 04/08/2023 227 08/26/2020 278 AST Date Value Ref Range Status 04/08/2023 18 13 - 35 U/L Final ALT Date Value Ref Range Status 04/08/2023 13 7 - 38 U/L Final Creatinine Date Value Ref Range Status 04/08/2023 1.00 (H) 0.58 - 0.96 mg/dL Final No results found for: URICACID Shae Gengo, MA documented in this encounter [facility] 04-15-2023 Instructions Kaylin Clay MD - 04/15/2023 4:48 PM EDT Please stop the folic acid and remain on only the leucovorin once weekly to offset the methotrexate side effects. Please schedule injection teaching with your PCP's office for the first dose of methotrexate (to start Sunday 04/22). From then on, you'll need to do the weekly methotrexate injections yourself at home. 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 You also have osteoarthritis. Your next set of labs for methotrexate monitoring are due around 07/09/23. Lab orders are in the system so please have the blood draw done then. You don't need to be fasting for the blood draw. documented in this encounter [facility] 04-15-2023 Note HNO ID: [id number] Author: Kaylin Clay MD Service: ? Author Type: Physician Type: Progress Notes Filed: 04/15/2023 5:21 PM Note Text: On 04/15/2023, I had the pleasure of seeing Dina Hester at the [facility]. Dina Hester was referred by Giancarlo Castaneda for an opinion and advice regarding joint pain. My findings and final recommendations will be communicated to the requesting health care provider by way of the shared medical record for internal providers or letter via the [employer] for external providers. Chief complaint: Joint pain HPI: To review, Dina Hester is a 82 year old female - Hx of miscarriage at 5 months and 3 months. 2 biological children. No hx of DVT or PE - Around , diagnosed with UC. In the past, treated with SSZ which was stopped for rash. Never on a biologic with injection or infusion. - In , noted progressive joint pain - [facility], initially in Jun with a history of UC-related arthritis per documentation. Diagnosed with lupus per report. Had been on MTX 15mg PO weekly (along with leucovorin) with headache and n/v since at least mid. Initially helped, higher dose of 7 tabs/week caused nausea, VILLAVICENCIO and malaise so reduced to 6 tabs/weeks. Joint pain is 50-60% improved with MTX as compared to before - Dr. Guerrero notes past hx of HCQ 300mg/day, but she doesn't recall ever being on this. - In February, advised by Dr. Higgins to continue MTX 15mg PO weekly and gabapentin - Today, reports intermittent flares manifesting with diarrhea and increased joint pain all responsive to prednisone (takes 10mg/day x3 days prn) - Joint pain is located in the R shoulder, R elbow, R wrist and R knee. - No mouth sores, hair loss or rash. Hasn't been in the sun. - Both hips hurt with walking PAST MEDICAL HISTORY Diagnosis Date Atherosclerotic heart disease of [place] coronary artery without angina pectoris Dr. Cardona Cholelithiases Collagenous colitis 04/18/2012 DDD (degenerative disc disease), cervical Dr. Meredith Essential hypertension, benign History of left heart catheterization 10/29/[address] Cardona History of tobacco use Hyperlipidemia LDL goal < 100 04/25/2012 Hypokalemia 11/12/2012 Intestinal disaccharidase deficiencies and disaccharide malabsorption Major depressive disorder, single episode, unspecified Mitral valve disorders(424.0) Other chondrocalcinosis, left knee Systemic lupus erythematosus (HCC) Dr. Higgins Ulcerative colitis without complications (HCC) 08/29/2015 Unilateral primary osteoarthritis, left knee GERD Depression/anxiety PAST SURGICAL HISTORY Procedure Laterality Date ARTHROSCOPY KNEE DIAGNOSTIC W/WO SYNOVIAL BX SPX Left 03/07/2018 [facility]-Dr. Viveros ARTHRP KNE CONDYLEANDPLATU MEDIALANDLAT COMPARTMENTS Right 07/14/2020 right total knee COLONOSCOPY FLX DX W/COLLJ SPEC WHEN PFRMD 04/18/2011 Colonoscopy COLONOSCOPY FLX DX W/COLLJ SPEC WHEN PFRMD 05/17/2016 Colonoscopy ESOPHAGOGASTRODUODENOSCOPY TRANSORAL DIAGNOSTIC 11/07/2016 EGD LAPAROSCOPY SURG CHOLECYSTECTOMY 10/17/2011 Cholecystectomy, lap LIG/TRNSXJ FLP TUBE ABDL/VAG APPR UNI/BI Tubal ligation RMVL LENS MATERIAL PHACOFRAGMENTATION ASPIR 08/2009 Cataract Extraction, right eye TONSILLECTOMY AND ADENOIDECTOMY TOTAL ABDOMINAL HYSTERECT W/WO RMVL TUBE OVARY Hysterectomy, GENE ALLERGIES Allergen Reactions Abilify [Aripiprazo* Mental Status Change Bandaid Adhes [Othe* Biaxin [Clarithromy* Darvon [Propoxyphen* Entex La [Phenyleph* Erythromycin Oxycodone Intolerance Mental Status Changes-Hallucinating. Pseudoephr [Other] Sulfa (Sulfonamide * Vicodin [Hydrocodon* itching MEDICATIONS: Current Outpatient Medications Medication Sig lisinopril (ZESTRIL) 20 mg tablet Take 20 mg by mouth once daily. potassium chloride (K-TAB) 10 mEq tablet Take 1 tablet by mouth twice daily. atorvastatin (LIPITOR) 20 mg tablet Take 1 tablet by mouth daily at bedtime. For cholesterol. buPROPion XL (WELLBUTRIN XL) 300 mg 24 hr tablet Take 1 tablet by mouth once daily. omeprazole (PRILOSEC) 20 mg capsule TAKE 1 CAPSULE BY MOUTH TWICE A DAY amLODIPine (NORVASC) 5 mg tablet Take 1 tablet by mouth once daily. sertraline (ZOLOFT) 100 mg tablet TAKE 1 TABLET BY MOUTH ONCE A DAY clonazePAM (KLONOPIN) 0.5 mg tablet Take one tablet at night daily for insomnia leucovorin (LEUCOVORIN) 15 mg tablet methotrexate 2.5 mg tablet Take 15 mg by mouth one time only. 7- 2.5mg tabs po weekly FOLIC ACID ORAL Take by mouth. gabapentin (NEURONTIN) 100 mg capsule Take 100 mg by mouth three times daily. Dr Mcdermott carvedilol (COREG) 3.125 mg tablet 3.125 mg twice daily with meals. No current facility-administered medications for this visit. FAMILY HISTORY Problem Relation Age of Onset Coronary Artery Disease [place] (more content not included)... [facility] 04-15-2023 History of Present illness Narrative On 04/15/2023, I had the pleasure of seeing Dina Hester at the [facility]. Dina Hester was referred by Giancarlo Castaneda for an opinion and advice regarding joint pain. My findings and final recommendations will be communicated to the requesting health care provider by way of the shared medical record for internal providers or letter via the [employer] for external providers. Chief complaint: Joint pain HPI: To review, Dina Hester is a 82 year old female - Hx of miscarriage at 5 months and 3 months. 2 biological children. No hx of DVT or PE - Around , diagnosed with UC. In the past, treated with SSZ which was stopped for rash. Never on a biologic with injection or infusion. - In , noted progressive joint pain - Seen by [facility] En[facility], initially in Jun with a history of UC-related arthritis per documentation. Diagnosed with lupus per report. Had been on MTX 15mg PO weekly (along with leucovorin) with headache and n/v since at least mid-. Initially helped, higher dose of 7 tabs/week caused nausea, VILLAVICENCIO and malaise so reduced to 6 tabs/weeks. Joint pain is 50-60% improved with MTX as compared to before - Dr. Guerrero notes past hx of HCQ 300mg/day, but she doesn't recall ever being on this. - In February, advised by Dr. Higgins to continue MTX 15mg PO weekly and gabapentin - Today, reports intermittent flares manifesting with diarrhea and increased joint pain all responsive to prednisone (takes 10mg/day x3 days prn) - Joint pain is located in the R shoulder, R elbow, R wrist and R knee. - No mouth sores, hair loss or rash. Hasn't been in the sun. - Both hips hurt with walking PAST MEDICAL HISTORY Diagnosis Date Atherosclerotic heart disease of [place] coronary artery without angina pectoris Dr. Cardona Cholelithiases Collagenous colitis 04/18/2012 DDD (degenerative disc disease), cervical Dr. Meredith Essential hypertension, benign History of left heart catheterization 10/29/[address] Cardona History of tobacco use Hyperlipidemia LDL goal < 100 04/25/2012 Hypokalemia 11/12/2012 Intestinal disaccharidase deficiencies and disaccharide malabsorption Major depressive disorder, single episode, unspecified Mitral valve disorders(424.0) Other chondrocalcinosis, left knee Systemic lupus erythematosus (HCC) Dr. Higgins Ulcerative colitis without complications (HCC) 08/29/2015 Unilateral primary osteoarthritis, left knee GERD Depression/anxiety PAST SURGICAL HISTORY Procedure Laterality Date ARTHROSCOPY KNEE DIAGNOSTIC W/WO SYNOVIAL BX SPX Left 03/07/2018 [facility]-Dr. Viveros ARTHRP KNE CONDYLE&PLATU MEDIAL&LAT COMPARTMENTS Right 07/14/2020 right total knee COLONOSCOPY FLX DX W/COLLJ SPEC WHEN PFRMD 04/18/2011 Colonoscopy COLONOSCOPY FLX DX W/COLLJ SPEC WHEN PFRMD 05/17/2016 Colonoscopy ESOPHAGOGASTRODUODENOSCOPY TRANSORAL DIAGNOSTIC 11/07/2016 EGD LAPAROSCOPY SURG CHOLECYSTECTOMY 10/17/2011 Cholecystectomy, lap LIG/TRNSXJ FLP TUBE ABDL/VAG APPR UNI/BI Tubal ligation RMVL LENS MATERIAL PHACOFRAGMENTATION ASPIR 08/2009 Cataract Extraction, right eye TONSILLECTOMY & ADENOIDECTOMY <AGE 14 TOTAL ABDOMINAL HYSTERECT W/WO RMVL TUBE OVARY Hysterectomy, GENE ALLERGIES Allergen Reactions Abilify [Aripiprazo* Mental Status Change Bandaid Adhes [Othe* Biaxin [Clarithromy* Darvon [Propoxyphen* Entex La [Phenyleph* Erythromycin Oxycodone Intolerance Mental Status Changes-Hallucinating. Pseudoephr [Other] Sulfa (Sulfonamide * Vicodin [Hydrocodon* itching MEDICATIONS: Current Outpatient Medications Medication Sig lisinopril (ZESTRIL) 20 mg tablet Take 20 mg by mouth once daily. potassium chloride (K-TAB) 10 mEq tablet Take 1 tablet by mouth twice daily. atorvastatin (LIPITOR) 20 mg tablet Take 1 tablet by mouth daily at bedtime. For cholesterol. buPROPion XL (WELLBUTRIN XL) 300 mg 24 hr tablet Take 1 tablet by mouth once daily. omeprazole (PRILOSEC) 20 mg capsule TAKE 1 CAPSULE BY MOUTH TWICE A DAY amLODIPine (NORVASC) 5 mg tablet Take 1 tablet by mouth once daily. sertraline (ZOLOFT) 100 mg tablet TAKE 1 TABLET BY MOUTH ONCE A DAY clonazePAM (KLONOPIN) 0.5 mg tablet Take one tablet at night daily for insomnia leucovorin (LEUCOVORIN) 15 mg tablet methotrexate 2.5 mg tablet Take 15 mg by mouth one time only. 7- 2.5mg tabs po weekly FOLIC ACID ORAL Take by mouth. gabapentin (NEURONTIN) 100 mg capsule Take 100 mg by mouth three times daily. Dr Mcdermott carvedilol (COREG) 3.125 mg tablet 3.125 mg twice daily with meals. No current facility-administered medications for this visit. FAMILY HISTORY Problem Relation Age of Onset Coronary Artery Disease Mother Hypertension Mother Coronary Artery Disease Father Hypertension Father Arthritis Father Alcohol/Drug Daughter Diabetes Other Mother's side of family SOCIAL HISTORY: Lives in [place]. Retired from working at the [employer], worked there for 31 years. 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 Older son was murdered. Daughter is 47 yo, battling drug addiction. Relapsed in Oct. She has 2 kids, older is 19 yo grandson who is going to college at [employer], will play football and wants to do SW Tobacco use: None Alcohol use: None Drug use: None Review of Systems CONSTITUTION: Negative for: Fever and Recent weight change HEENT: Positive for: Dry mouth Negative for: Nosebleeds, Mouth sores and Trouble swallowing RESPIRATORY: Positive for: Cough Negative for: Shortness of breath, Pain with breathing and Coughing up blood GASTROINTESTINAL: Positive for: Diarrhea and Heartburn Negative for: Melena and Abdominal pain MUSCULOSKELETAL: Positive for: Arthralgias, Myalgias, Muscle weakness and Morning Joint Stiffness NEUROLOGICAL: Positive for: Headaches and Memory loss Negative for: Numbness SKIN: Positive for: Skin changes and Nail changes Negative for: Rash and Hair loss EYES: Positive for: Eye redness and Visual disturbance CARDIOVASCULAR: Negative for: Chest pain and Leg swelling GENITOURINARY: Negative for: Dysuria and Hematuria HEMATOLOGIC/LYMPHATIC: Negative for: Swollen glands PHYSICAL EXAM: VITALS: Blood pressure 123/61, pulse 70, temperature 36.5 C (97.7 F), temperature source Oral, height 170.2 cm (5' 7 ), weight 67.6 kg (149 lb). CONSTITUTIONAL: Well-appearing, in NAD. SKIN: No rash. No alopecia. No sclerodactyly, calcinosis, telangiectasias, digital ulcers, or skin thickening. EYES: No scleral icterus or conjunctivitis ENT and Mouth: External ears normal. Nares normal. RESPIRATORY: Normal breath sounds, clear to auscultation. CARDIOVASCULAR: Regular rate and rhythm, no murmurs or rubs EXTREMITIES/LYMPH: No edema bilaterally NEURO: Awake, alert and oriented, Normal gait MUSCULOSKELETAL: JOINT APPEARANCE: Heberden's nodes present bilaterally. No erythema or warmth of any upper or lower extremity joint. RANGE OF MOTION: Able to fully close fists and curl fingers bilaterally. SWOLLEN JOINTS/SYNOVITIS: No synovitis of any joint. TENDER JOINTS: None Widespread Pain Index: 8 (0-19) Symptoms Severity Scale: 9 (0-12) WPI>7 and SS Scale>5 OR WPI 3-6 and SS Scale >9 consistent with fibromyalgia LABORATORY: Component Latest Ref Rng & Units 04/08/2023 WBC 3.70 - 11.00 k/uL 6.55 RBC 3.90 - 5.20 m/uL 3.75 (L) Hemoglobin 11.5 - 15.5 g/dL 11.9 Platelet Count 150 - 400 k/uL 227 Calcium 8.5 - 10.2 mg/dL 10.5 (H) Bilirubin, Total 0.2 - 1.3 mg/dL 0.3 Alkaline Phosphatase 34 - 123 U/L 115 AST 13 - 35 U/L 18 ALT 7 - 38 U/L 13 Glucose 74 - 99 mg/dL 79 BUN 7 - 21 mg/dL 15 Creatinine 0.58 - 0.96 mg/dL 1.00 (H) Sodium 136 - 144 mmol/L 141 Potassium 3.7 - 5.1 mmol/L 3.6 (L) Chloride 97 - 105 mmol/L 104 CO2 22 - 30 mmol/L 24 Anion Gap 9 - 18 mmol/L 13 eGFR >=60 mL/min/1.73m 57 (L) Component Latest Ref Rng & Units 02/13/2022 08/27/2022 04/08/2023 WSR 0 - 20 mm/hr 18 CRP <0.9 mg/dL 0.7 Hepatitis A IgG Negative Negative Hep C Antibody IA Negative Negative Hep B Surface Ag Negative Negative Hep B Surface Ab, Qual Negative Negative Hep B Core Ab, Total Negative Negative CK 42 - 196 U/L 41 (L) HLA-B27 DNA Result Positive *Past labs reportedly with +SHELLY 1:320 homogenous, anticariolipin IgM 79.7 with unremarkable dsDNA, ROBERTO, RF, CCP and LAC STUDIES: *April xray pelvis- normal SI, moderate OA of both hips *January DXA- normal IMPRESSION and PLAN: 1. UC-related inflammatory arthritis: With prednisone responsive joint pain that flares along with increased diarrhea. Prior diagnosis of SLE, although I explained this is unlikely present despite the nonspecific SHELLY abnormality given lack of other typically associated clinical features for SLE. MTX PO with partial improvement in joint pain, 20mg with increased SE so on 15mg currently. Active joint pain - Extensively explained the clinical scenario as above - Switch to MTX 15mg SC weekly (from 15mg PO) for reduced GI SE and increased efficacy. Would not increase much more given borderline renal fcn per last check. Advised to stop FA and continue leucovorin 15mg weekly. Potential side effects were explained including liver toxicity, lung toxicity, bone marrow suppression, increased risk for infection, mouth sores, nausea/vomiting, and diarrhea. Explained that methotrexate should be held in case of infection and restarted after symptoms resolve. Advised taking leucovorin to help offset some of the potential side effects such as mouth sores. Explained that routine lab monitoring will be required every 3 months while on methotrexate. Provided literature on methotrexate for review. - Next standing labs due in Jun. Notify of results via [facility] PBCt - Check hand x-rays. Notify of results via [facility] PBC[facility] 2. High calcium: Past hx of steroid use - Agree with labs as already ordered including PTH - Check DXA. Notify of results via [facility] PBCt 3. General health maintenance: - Continue follow-up with PCP for routine health maintenance and malignancy screening Follow-up in 5, 10 & 20 months with [place] and 15 months with me or sooner if needed. Patient was instructed to call if any questions or concerns. Thank you for allowing me to participate in the care of your patient. Kaylin Clay MD I spent a total of 76 minutes on the date of the service which included preparing to see the patient, [id number] patient care, completing clinical documentation, obtaining and/or reviewing separately obtained history, performing a medically appropriate examination, counseling and educating the patient/family/caregiver, ordering medications, tests, or procedures, independently interpreting results (not separately reported), and communicating results to the patient/family/caregiver. documented in this encounter [facility] 04-15-2023 Note HNO ID: [id number] Author: Giancarlo Castaneda PA-C Service: ? Author Type: Physician Forger Helper Type: Progress Notes Filed: 04/15/2023 6:11 PM Note Text: 82 year old female with c/o here for 6 month follow up. Coronary artery disease involving [place] coronary artery of [place] heart without angina pectoris Hyperlipidemia with target ldl less than 100 Essential hypertension Hypertensive kidney disease with stage 3a chronic kidney disease (hcc) Cardiovascular interval hx: 03/15/2023 echocardiogram [facility]: LV size and LVSF WNL, EF 65%, no regional wall motion abnormalities. RV size and RV SF WNL Bilateral atria normal size Mild focal mitral valve calcification, equivocal mitral valve prolapse Normal TV, AV, PV Normal great vessels, no pericardial effusion. 02/27/2023 last follow-up cardiology with [facility]. 08/08/2021 pharmacologic nuclear stress test: Sinus rhythm 61 bpm baseline, obtained heart rate of 83 bpm at 58% of maximum predicted, no ST or T wave changes to suggest abnormal flow, none specific ST changes noted which do not meet criteria for ischemia. SPECT analysis: Normal tracer uptake throughout the myocardium, no areas of reversibility to suggest ischemia Conclusion normal stress test. Preserved ejection fraction. 07/26/2021 [facility]: [facility]: ER follow-up for chest pain, history of hypertension and mitral valve prolapse. 12/23/2019 echocardiogram: LV size and LV SF WNL, ejection fraction 60%. Stage I diastolic dysfunction. Mitral valve prolapse PAP 28 mmHg 2014 heart cath: Normal left main coronary artery LAD mild disease LCx no high-grade stenosis RCA no significant stenosis Preserved ejection fraction by echo 06/30/2014 echocardiogram: LV size and LV SF WNL, EF 55% mitral valve prolapse, trivial MVi 10/16/2014: pharmacologic myocardial perfusion scan WNL with preserved ejection fraction Current meds: Lisinopril 20mg tablets once a day Atorvastatin 20 mg daily at bedtime Amlodipine 5 mg daily Carvedilol 3.125 mg twice a day Use of NTG: No Chest pain, arm, jaw pain, neck, or upper back pain suggestive of angina: No. Except r/t to arthritis SOB: No Dyspnea with exertion: No, sometimes has to stop at top of stairs. orthopnea: No Cough : dry cough racing or irregular heartbeats: No palpitations: No syncopal sx: No Headache: No Unexplainable fatigue Yes Leg swelling: No Nausea: No diaphoresis: No Heartburn: every once in awhile food related heartburn Claudication: No Smoking: No Following Low cholesterol, high fiber diet? Yes If on statin: muscle aches? No If on statin: GI sx or diarrhea? No Additional history none. Lab review: Component Latest Ref Rng AND Units 01/08/2020 02/13/2022 04/08/2023 WBC 3.70 - 11.00 k/uL 8.68 8.81 6.55 RBC 3.90 - 5.20 m/uL 4.17 4.10 3.75 (L) Hemoglobin 11.5 - 15.5 g/dL 12.8 12.4 11.9 Hematocrit 36.0 - 46.0 % 38.1 38.9 37.3 MCV 80.0 - 100.0 fL 91.4 94.9 99.5 MCH 26.0 - 34.0 pg 30.7 30.2 31.7 MCHC 30.5 - 36.0 g/dL 33.6 31.9 31.9 RDW-CV 11.5 - 15.0 % 12.4 13.2 14.5 Platelet Count 150 - 400 k/uL 223 269 227 MPV 9.0 - 12.7 fL 11.9 10.8 11.3 Neut% % 69.0 74.3 57.2 Abs Neut (ANC) 1.45 - 7.50 k/uL 6.00 6.54 3.75 Lymph% % 20.9 15.7 30.1 Abs Lymph 1.00 - 4.00 k/uL 1.81 1.38 1.97 [place]% % 6.5 8.2 9.3 Abs [place] <0.87 k/uL 0.56 0.72 0.61 Eosin% % 3.0 1.2 2.3 Abs Eosin <0.46 k/uL 0.26 0.11 0.15 Baso% % 0.6 0.3 0.8 Abs Baso <0.11 k/uL 0.05 0.03 0.05 Immature Gran % % 0.3 0.3 IMMATURE GRANS (ABS) <0.10 k/uL 0.03 <0.03 NRBC /100 WBC 0.0 0.0 Absolute nRBC <0.01 k/uL <0.01 <0.01 <0.01 DTYPE Auto Auto Nucleated Reds 0 /100 WBC 0.0 Diff Type Auto Diff 11/21/2022 CMP [facility]: WNL except BUN 16, CRE 0.9, eGFR 59 11/21/2022 WC CBC: W7.9- HGB 11.4-HCT 36.6-PLT 249, MCV 99.2 Component Latest Ref Rng AND Units 02/13/2022 08/27/2022 04/08/2023 Protein, Total 6.3 - 8.0 g/dL 6.5 6.7 6.8 Albumin 3.9 - 4.9 g/dL 4.1 4.4 4.2 Calcium 8.5 - 10.2 mg/dL 10.0 10.7 (H) 10.5 (H) Bilirubin, Total 0.2 - 1.3 mg/dL 0.4 0.3 0.3 Alkaline Phosphatase 34 - 123 U/L 105 125 (H) 115 AST 13 - 35 U/L 17 20 18 Glucose 74 - 99 mg/dL 106 (H) 80 79 BUN 7 - 21 mg/dL 15 16 15 Creatinine 0.58 - 0.96 mg/dL 0.98 (H) 0.92 1.00 (H) Sodium 136 - 144 mmol/L 138 141 141 Potassium 3.7 - 5.1 mmol/L 3.3 (L) 3.8 3.6 (L) Chloride 97 - 105 mmol/L 101 103 104 CO2 22 - 30 mmol/L 26 28 24 Anion Gap 9 - 18 mmol/L 11 10 13 ALT 7 - 38 U/L 14 10 13 eGFR- eGFR-All Other Races . eGFR-Pediatric Factor eGFR >=60 mL/min/1.73mA? 59 (L) 63 57 (L) Cholesterol, Total <200 mg/dL 264 (H) Triglyceride <150 mg/dL 369 (H) HDL Cholesterol >39 mg/dL 61 LDL Cholesterol <100 mg/dL 129 (H) Non HDL Cholesterol <130 mg/dL 203 (H) Fasting Time hrs 4 VLDL Cholesterol <30 mg/dL 74 (H) TC:HDL Ratio <5.10 4.33 LDL:HDL Ratio <2.54 2.11 Hx heavy drinking for a period Reaffirms no longer uses (more content not included)... [facility] 04-15-2023 History of Present illness Narrative 82 year old female with c/o here for 6 month follow up. Coronary artery disease involving [place] coronary artery of [place] heart without angina pectoris Hyperlipidemia with target ldl less than 100 Essential hypertension Hypertensive kidney disease with stage 3a chronic kidney disease (hcc) Cardiovascular interval hx: 03/15/2023 echocardiogram [facility]: LV size and LVSF WNL, EF 65%, no regional wall motion abnormalities. RV size and RV SF WNL Bilateral atria normal size Mild focal mitral valve calcification, equivocal mitral valve prolapse Normal TV, AV, PV Normal great vessels, no pericardial effusion. 02/27/2023 last follow-up cardiology with [facility]. 08/08/2021 pharmacologic nuclear stress test: Sinus rhythm 61 bpm baseline, obtained heart rate of 83 bpm at 58% of maximum predicted, no ST or T wave changes to suggest abnormal flow, none specific ST changes noted which do not meet criteria for ischemia. SPECT analysis: Normal tracer uptake throughout the myocardium, no areas of reversibility to suggest ischemia Conclusion normal stress test. Preserved ejection fraction. 07/26/2021 [facility]: [facility]: ER follow-up for chest pain, history of hypertension and mitral valve prolapse. 12/23/2019 echocardiogram: LV size and LV SF WNL, ejection fraction 60%. Stage I diastolic dysfunction. Mitral valve prolapse PAP 28 mmHg 2014 heart cath: Normal left main coronary artery LAD mild disease LCx no high-grade stenosis RCA no significant stenosis Preserved ejection fraction by echo 06/30/2014 echocardiogram: LV size and LV SF WNL, EF 55% mitral valve prolapse, trivial MVi 10/16/2014: pharmacologic myocardial perfusion scan WNL with preserved ejection fraction Current meds: Lisinopril 20mg tablets once a day Atorvastatin 20 mg daily at bedtime Amlodipine 5 mg daily Carvedilol 3.125 mg twice a day Use of NTG: No Chest pain, arm, jaw pain, neck, or upper back pain suggestive of angina: No. Except r/t to arthritis SOB: No Dyspnea with exertion: No, sometimes has to stop at top of stairs. orthopnea: No Cough : dry cough racing or irregular heartbeats: No palpitations: No syncopal sx: No Headache: No Unexplainable fatigue Yes Leg swelling: No Nausea: No diaphoresis: No Heartburn: every once in awhile food related heartburn Claudication: No Smoking: No Following Low cholesterol, high fiber diet? Yes If on statin: muscle aches? No If on statin: GI sx or diarrhea? No Additional history none. Lab review: Component Latest Ref Rng & Units 01/08/2020 02/13/2022 04/08/2023 WBC 3.70 - 11.00 k/uL 8.68 8.81 6.55 RBC 3.90 - 5.20 m/uL 4.17 4.10 3.75 (L) Hemoglobin 11.5 - 15.5 g/dL 12.8 12.4 11.9 Hematocrit 36.0 - 46.0 % 38.1 38.9 37.3 MCV 80.0 - 100.0 fL 91.4 94.9 99.5 MCH 26.0 - 34.0 pg 30.7 30.2 31.7 MCHC 30.5 - 36.0 g/dL 33.6 31.9 31.9 RDW-CV 11.5 - 15.0 % 12.4 13.2 14.5 Platelet Count 150 - 400 k/uL 223 269 227 MPV 9.0 - 12.7 fL 11.9 10.8 11.3 Neut% % 69.0 74.3 57.2 Abs Neut (ANC) 1.45 - 7.50 k/uL 6.00 6.54 3.75 Lymph% % 20.9 15.7 30.1 Abs Lymph 1.00 - 4.00 k/uL 1.81 1.38 1.97 [place]% % 6.5 8.2 9.3 Abs [place] <0.87 k/uL 0.56 0.72 0.61 Eosin% % 3.0 1.2 2.3 Abs Eosin <0.46 k/uL 0.26 0.11 0.15 Baso% % 0.6 0.3 0.8 Abs Baso <0.11 k/uL 0.05 0.03 0.05 Immature Gran % % 0.3 0.3 IMMATURE GRANS (ABS) <0.10 k/uL 0.03 <0.03 NRBC /100 WBC 0.0 0.0 Absolute nRBC <0.01 k/uL <0.01 <0.01 <0.01 DTYPE Auto Auto Nucleated Reds 0 /100 WBC 0.0 Diff Type Auto Diff 11/21/2022 CMP [facility]: WNL except BUN 16, CRE 0.9, eGFR 59 11/21/2022 [facility] CBC: W7.9- HGB 11.4-HCT 36.6-PLT 249, MCV 99.2 Component Latest Ref Rng & Units 02/13/2022 08/27/2022 04/08/2023 Protein, Total 6.3 - 8.0 g/dL 6.5 6.7 6.8 Albumin 3.9 - 4.9 g/dL 4.1 4.4 4.2 Calcium 8.5 - 10.2 mg/dL 10.0 10.7 (H) 10.5 (H) Bilirubin, Total 0.2 - 1.3 mg/dL 0.4 0.3 0.3 Alkaline Phosphatase 34 - 123 U/L 105 125 (H) 115 AST 13 - 35 U/L 17 20 18 Glucose 74 - 99 mg/dL 106 (H) 80 79 BUN 7 - 21 mg/dL 15 16 15 Creatinine 0.58 - 0.96 mg/dL 0.98 (H) 0.92 1.00 (H) Sodium 136 - 144 mmol/L 138 141 141 Potassium 3.7 - 5.1 mmol/L 3.3 (L) 3.8 3.6 (L) Chloride 97 - 105 mmol/L 101 103 104 CO2 22 - 30 mmol/L 26 28 24 Anion Gap 9 - 18 mmol/L 11 10 13 ALT 7 - 38 U/L 14 10 13 eGFR- eGFR-All Other Races . eGFR-Pediatric Factor eGFR >=60 mL/min/1.73m 59 (L) 63 57 (L) Cholesterol, Total <200 mg/dL 264 (H) Triglyceride <150 mg/dL 369 (H) HDL Cholesterol >39 mg/dL 61 LDL Cholesterol <100 mg/dL 129 (H) Non HDL Cholesterol <130 mg/dL 203 (H) Fasting Time hrs 4 VLDL Cholesterol <30 mg/dL 74 (H) TC:HDL Ratio <5.10 4.33 LDL:HDL Ratio <2.54 2.11 Hx heavy drinking for a period Reaffirms no longer uses alcohol. 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 Current symptoms: heart burn if eats something she shouldn't. Last Mg level if on PPI chronically: 08/26/2020 1.6. Heartburn is controlled: Yes. Dysphagia: No. Bloody or black stools: No. Bowel changes: No. Last EGD and/or colonoscopy: . 11/07/2016 EGD [facility]: Stomach, antrum, biopsy - Gastric antral-type mucosa with reactive gastropathy. - Separate fragments of oxyntic-type mucosa with no significant pathologic change. 05/17/[address] Bernardo entire colon within normal limits 04/18/2011 colonoscopy, Dr. Sexton: Non-bleeding internal hemorrhoids, diverticulosis of the large intestine otherwise negative 1. Proximal ascending colon, biopsy (A) - Colonic mucosa with no significant pathologic changes. - No evidence of granulomas or dysplasia. 2. Distal ascending colon, biopsy (B) - Colonic mucosa with no significant pathologic changes. - No evidence of granulomas or dysplasia. 3. Mid transverse colon, biopsy (C) - Colonic mucosa with no significant pathologic changes. - No evidence of granulomas or dysplasia. 4. Colon, 40 cm, biopsy (D) - Colonic mucosa with no significant pathologic changes. - No evidence of granulomas or dysplasia. 5. Sigmoid colon, biopsy (E) - Colonic mucosa with no significant pathologic changes. - No evidence of granulomas or dysplasia. 6. Rectum, biopsy (F) - Colonic mucosa with no significant pathologic changes. - No evidence of granulomas or dysplasia. 02/22/2005 Colonoscopy, Dr. Sexton: randomoccasional heart burn if eats biopsies:the histomorphologic features are consistent with a diagnosis of collagenous colitis, however, given the presence of active inflammation we cannot exclude the possibility of a superimposed active colitis. 12/11/2002 colonoscopy, Dr. Sexton: 1. Small non-bleeding internal hemorrhoids were present [455.0]. 2. The mucosa in the transverse colon, the splenic flexure, the descending colon and the rectosigmoid junction was normal appearing. 3. There was blunting of the vascular pattern in the cecum, the ascending colon and the hepatic flexure. 4. Ulcerative colitis of the rectum and the distal rectum. [556.9]. Multiple biopsies were obtained from the rectum. 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 Daughter drug addicted Son elainedered Che is gone . Daughter was in bedroom trying to get into her locked box with her medications. Using again, told her to leave. Back with ex, drug user. Current medications: Klonopin 0.5mg qHS Bupropion XL 300 mg daily Sertraline [address] Del Real refused to refill Klonopin without psychiatrist's approval Sees Dr. Drake, psych who refills. Inflammatory polyarthritis Seeing Dr. Clay this afternoon. Taking prednisone 3 day course for pain which helps for short periods. Prior Dr. Brain Higgins Feeling worse: wants second opinion, hoping something different might be available. Was told lupus is more common with UC which I corrected ttro be an unlikely connection. Her diagnosis is inflammatory polyarthropathy which is like reactive to UC. Discussed serology: no positive for markers with lupus except high SHELLY. HLAB27 wasn't checked. SHELLY was elevated with homogenous which is associated with connective tissue disease. Right TKA 2020 Dr. Viveros Right knee doing well Left knee bothersome but doesn't want surgery. Right shoulder hurts a lot, hard to hold up to dress or groom. PT helps at times A lot of trouble lifting anything with right arm. Dr. Viveros told her to use OTC Voltaren gel: using about once a week. Placed in PT: has been to 1 session Current medications: Methotrexate 2.5 m tablets weekly Leucovorin 50 mg tablet daily Folic acid Gabapentin 100 mg twice a day Tylenol ES 2 tabs every 8h Consult rheumatology 06/30/2021: From Notes: Inflammatory polyarthropathy associated with ulcerative colitis. Past treatments include intermittent prednisone Tylenol, Voltaren gel. History of right total knee replacement. Serologic testing: negative for rheumatoid factor, anti-CCP, anti-DNA, SHELLY, rheumatoid factor, anti-CCP antibody, lupus anticoagulant. Had a normal urine protein creatinine ratio.. ESR 19 CRP of 34.4. positive for SHELLY 1: 320 homogenous pattern erythrocyte bile C4d of 20 B lymphocyte bound C4d of 111 antiphosphatidylserine/prothrombin IgM at 70.8 anticardiolipin IgM at 79.7 antibeta-2 glycoprotein 1 IgG at 23.[address] Meredith pain management: injections in neck for severe headaches, now resolved. Also injections in back which didn't help. HISTORIES FAMILY HISTORY Problem Relation Age of Onset Coronary Artery Disease Mother Hypertension Mother Coronary Artery Disease Father Hypertension Father Arthritis Father Alcohol/Drug Daughter Diabetes Other Mother's side of family PAST MEDICAL HISTORY Diagnosis Date Atherosclerotic heart disease of [place] coronary artery without angina pectoris Dr. Cardona Cholelithiases Collagenous colitis 04/18/2012 DDD (degenerative disc disease), cervical Dr. Meredith Essential hypertension, benign History of left heart catheterization 10/29/[address] Cardona History of tobacco use Hyperlipidemia LDL goal < 100 04/25/2012 Hypokalemia 11/12/2012 Intestinal disaccharidase deficiencies and disaccharide malabsorption Major depressive disorder, single episode, unspecified Mitral valve disorders(424.0) Other chondrocalcinosis, left knee Systemic lupus erythematosus (HCC) Dr. Higgins Ulcerative colitis without complications ([facility]) 08/29/2015 Unilateral primary osteoarthritis, left knee PAST SURGICAL HISTORY Procedure Laterality Date ARTHROSCOPY KNEE DIAGNOSTIC W/WO SYNOVIAL BX SPX Left 03/07/2018 [facility]-Dr. Viveros ARTHRP KNE CONDYLE&PLATU MEDIAL&LAT COMPARTMENTS Right 07/14/2020 right total knee COLONOSCOPY FLX DX W/COLLJ SPEC WHEN PFRMD 04/18/2011 Colonoscopy COLONOSCOPY FLX DX W/COLLJ SPEC WHEN PFRMD 05/17/2016 Colonoscopy ESOPHAGOGASTRODUODENOSCOPY TRANSORAL DIAGNOSTIC 11/07/2016 EGD LAPAROSCOPY SURG CHOLECYSTECTOMY 10/17/2011 Cholecystectomy, lap LIG/TRNSXJ FLP TUBE ABDL/VAG APPR UNI/BI Tubal ligation RMVL LENS MATERIAL PHACOFRAGMENTATION ASPIR 08/2009 Cataract Extraction, right eye TONSILLECTOMY & ADENOIDECTOMY <AGE 14 TOTAL ABDOMINAL HYSTERECT W/WO RMVL TUBE OVARY Hysterectomy, GENE Social History Tobacco Use Smoking status: Former Packs/day: 1.00 Years: 15.00 Pack years: 15.00 Types: Cigarettes Quit date: 1996 Years since quittin.4 Smokeless tobacco: Never Substance Use Topics Alcohol use: Yes Comment: RARELY Drug use: No ACTIVE PROBLEM LIST Intestinal Disaccharidase Deficiencies and Disaccharide Malabsorption BENIGN HYPERTENSION Headache Meniscus, Medial, Derangement Collagenous Colitis Hyperlipidemia With Target Ldl Less Than 100 Postmenopausal Atrophic Vaginitis Ulcerative Colitis Without Complications ([facility]) Gastroesophageal Reflux Disease Without Esophagitis Coronary Artery Disease Involving [place] Coronary Artery Ckd (Chronic Kidney Disease) Stage 3, Gfr 30-59 Ml/Min (Hcc) Depression, Major, Recurrent, Moderate (Hcc) Chronic Anxiety Insomnia Secondary to Anxiety Hypertensive Kidney Disease With Chronic Kidney Disease Stage Iii (Hcc) Inflammatory Polyarthritis (Hcc) Current Outpatient Medications Medication Sig Dispense Refill potassium chloride (K-TAB) 10 mEq tablet Take 1 tablet by mouth twice daily. 60 tablet 11 atorvastatin (LIPITOR) 20 mg tablet Take 1 tablet by mouth daily at bedtime. For cholesterol. 90 tablet 1 buPROPion XL (WELLBUTRIN XL) 300 mg 24 hr tablet Take 1 tablet by mouth once daily. 90 tablet 3 omeprazole (PRILOSEC) 20 mg capsule TAKE 1 CAPSULE BY MOUTH TWICE A DAY 180 capsule 3 amLODIPine (NORVASC) 5 mg tablet Take 1 tablet by mouth once daily. 90 tablet 3 sertraline (ZOLOFT) 100 mg tablet TAKE 1 TABLET BY MOUTH ONCE A DAY 90 tablet 3 clonazePAM (KLONOPIN) 0.5 mg tablet Take one tablet at night daily for insomnia 15 tablet 0 quinapril (ACCUPRIL) 10 mg tablet Take 2 tablets by mouth once daily. 60 tablet 5 leucovorin (LEUCOVORIN) 15 mg tablet methotrexate 2.5 mg tablet Take 15 mg by mouth one time only. 7- 2.5mg tabs po weekly FOLIC ACID ORAL Take by mouth. gabapentin (NEURONTIN) 100 mg capsule Take 100 mg by mouth twice daily. Dr Sharron martinezvedilol (COREG) 3.125 mg tablet 3.125 mg twice daily with meals. No current facility-administered medications for this visit. BP CONTROLLED (<130/80) due on 01/25/2023 HEPATITIS B(3 of 3 - Hep B Twinrix risk 3-dose series) due on 03/04/2023 HEPATITIS A(3 of 3 - Hep A Twinrix risk 3-dose series) due on 03/04/2023 EXAM: BP 128/72 Pulse 63 Ht 167.6 cm (5' 6 ) Wt 67 kg (147 lb 12.8 oz) SpO2 97% BMI 23.86 kg/m Pleasant well-appearing older adult woman in no acute distress. Alert and oriented all spheres. Affect is euthymic, open, goal oriented, stressed. skin warm, dry, pink to lips and nailbeds. Normal turgor. Respirations regular and unlabored. HEENT: NCAT. No scleral icterus or conjunctival injection. TM's clear. Nose and oropharynx free from injection or lesion. Oral membranes moist and pink. No cervical lymph nodes. Thyroid non-tender, no masses, or enlargement. Carotids pulses 2+/4+ without bruits. No JVD with HOB at 30 degrees. Chest is normal shape. Lungs are clear to all walters with good air exchange through out. HRRR without murmur or gallop. No lifts, heaves, or rubs. Extrem: no clubbing, cyanosis, edema. Distal pulses 2+/4, prompt capillary refill. ASSESSMENT/PLAN: 1. Coronary artery disease involving [place] coronary artery of [place] heart without angina pectoris - ICD9: 414.01, ICD10: I25.10 (primary diagnosis) Currently asymptomatic, follows with [place] cardiology, recent normal echo. Continue current medications - CBC + DIFF - COMP METABOLIC PANEL 2. Essential hypertension - ICD9: 401.9, ICD10: I10 - Controlled - Continue current medications - Recommend home blood pressure monitoring, to bring results to next visit - Encouraged sodium restriction, DASH or Mediterranean diet - Recommend regular aerobic exercise - CBC + DIFF - COMP METABOLIC PANEL 3. Hyperlipidemia with target LDL less than 100 - ICD9: 272.4, ICD10: E78.5 - Controlled - Counseled on healthy diet and regular exercise - COMP METABOLIC PANEL - LIPID PANEL BASIC 4. Hypertensive kidney disease with stage 3a chronic kidney disease (HCC) - ICD9: 403.90, 585.3, ICD10: I12.9, N18.31 - Controlled - Continue current medications - Recommend home blood pressure monitoring, to bring results to next visit - Encouraged sodium restriction, DASH or Mediterranean diet - Recommend regular aerobic exercise - eGFR: Stable - Counseled on avoiding NSAIDs, adequate hydration 5. Gastroesophageal reflux disease without esophagitis - ICD9: 530.81, ICD10: K21.9 - Discussed lifestyle modifications including limiting caffeine, no meals three hours before sleep, and head of bed elevation -Currently controlled on PPI, continue 6. Other ulcerative colitis without complication (HCC) - ICD9: 556.8, ICD10: K51.80 Intermittent episodes with diarrhea which seem to be mostly stress related, no blood or mucus noted. 7. Collagenous colitis - ICD9: 558.9, ICD10: K52.831 Stable 8. Intestinal disaccharidase deficiencies and disaccharide malabsorption - ICD9: 271.3, ICD10: E73.9 Stable 9. Chronic anxiety - ICD9: 300.00, ICD10: F41.9 10. Insomnia secondary to anxiety - ICD9: 300.00, 327.02, ICD10: F41.9, F51.05 Patient identifies doing well, wants no medication adjustments. 11. Depression, major, recurrent, moderate (HCC) - ICD9: 296.32, ICD10: F33.1 As above 12. Encounter for immunization - ICD9: V03.89, ICD10: Z23 - HEP B VACCINE, 3-DOSE, AGE 20+ YR (ENGERIX-B, RECOMBIVAX HB) - HEP A VACCINE, ADULT (HAVRIX, VAQTA) 13. FCI systemic steroid user - ICD9: V58.65, ICD10: Z79.52 Surveillance, elevated blood sugars - HGB A1C 14. Inflammatory polyarthritis (HCC) - ICD9: 714.9, ICD10: M06.4 Intermittent stress related diarrhea. No blood or mucus, severe pain 15. Lupus (HCC) - ICD9: 710.0, ICD10: M32.[address] Clay for intake this afternoon. Some of this note may have been copied and pasted for the purpose of history context and comparison and edited as needed. Giancarlo Castaneda PA-C documented in this encounter [facility] 03-29-2023 Miscellaneous Notes Patient phones requesting refills as follows: Requested Prescriptions Pending Prescriptions Disp Refills atorvastatin (LIPITOR) 20 mg tablet 90 tablet 1 Sig: Take 1 tablet by mouth daily at bedtime. For cholesterol. SHARIFA-01/08/23 Labs-03/19/23 NOV-04/15/23 Please review and advise. Ailyn Root LPN documented in this encounter [facility] 03-05-2023 Miscellaneous Notes Pt was notified of pcp's message, pt states that amt is affordable to her. Pt is very thankful that pcp will send in another prescription. Morenita Van LPN Needs to lock all prescriptions away $11.01 for #30 at [facility] with [facility] discount. Can she afford? The following approved medication requests have been transmitted electronically. Requested Prescriptions Signed Prescriptions Disp Refills buPROPion XL (WELLBUTRIN XL) 150 mg 24 hr tablet 30 tablet 0 Sig: Take 1 tablet by mouth once daily. Authorizing Provider: Giancarlo CASTANEDA PA-C ThanksLalit PA-C Pt states she picked up her Rx for bupropion 30 tabs on 03/01/23, pt reports she now has 1 tab left & her daughter did admit to 'taking a few throughout the day'. Pt is tearful on the phone, states she doesn't know what to do. Pt is looking for advise. Morenita Van LPN documented in this encounter [facility] 03-01-2023 Miscellaneous Notes Mychart message sent There aren't withdrawal side effects from wellbutrin but I sent a new rx The following approved medication requests have been transmitted electronically. Requested Prescriptions Signed Prescriptions Disp Refills buPROPion XL (WELLBUTRIN XL) 300 mg 24 hr tablet 90 tablet 1 Sig: Take 1 tablet by mouth every morning. Authorizing Provider: Giancarlo CASTANEDA PA-C Patient sends mychart. Please read message: Che said you told her to tell me to stay out of trouble. Well it seems I am in trouble. Either I had a very blank period or someone has done something with the remaining bupropion pills. Four days ago I was taking my morning meds and the bupropion bottle was empty. I have gone through the closet where I keep meds and I cannot find anything. I truly feel like I am losing my mind. Che thought I might have taken two a day and that is impossible. I have been on that medication for years and nothing like this has happened. I asked Che if she took the pills and she adamently denies it. I don't care if I have the meds or not but is it safe to stop a med I have been on for years. kk documented in this encounter [facility] 03-01-2023 Miscellaneous Notes Turned into TE documented in this encounter [facility] 02-19-2023 Miscellaneous Notes Done Thanks, Lalit Castaneda PA-C Please resend all otehrs were sent correctly Kita Mendez Ma documented in this encounter [facility] 02-18-2023 Miscellaneous Notes Patient phones requesting refills as follows: Requested Prescriptions Pending Prescriptions Disp Refills sertraline (ZOLOFT) 100 mg tablet [Pharmacy Med Name: SERTRALINE TAB 100MG] 90 tablet 3 Sig: TAKE 1 TABLET BY MOUTH ONCE A DAY potassium chloride (K-TAB) 10 mEq tablet [Pharmacy Med Name: POT CHLORIDE TAB 10MEQ ER] 90 tablet 3 Sig: TAKE 1 TABLET BY MOUTH ONCE DAILY. Please review and advise. Alek Messina LPN documented in this encounter [facility] 02-18-2023 Miscellaneous Notes PLEASE SEE OTHER REFILL REQUEST. Mary Mondragon MA documented in this encounter [facility] 02-18-2023 Miscellaneous Notes Call/message received from patient requesting refill. Please E-Scribe Last OV: 01/08/23 with Rafael Castaneda PA-C Future OV: 04/15/23 with Sneha Coles APRN Pharmacy Name: [facility] Phone #: [phone] Requested Prescriptions Pending Prescriptions Disp Refills sertraline (ZOLOFT) 100 mg tablet 90 tablet 3 Sig: Take 1 tablet by mouth once daily. Order pended for review. Please advise. Kaelyn Osorio LPN documented in this encounter [facility] 02-18-2023 Miscellaneous Notes Patient phones requesting refills as follows: Requested Prescriptions Pending Prescriptions Disp Refills amLODIPine (NORVASC) 5 mg tablet 90 tablet 3 Sig: Take 1 tablet by mouth once daily. Please review and advise. Alek Messina LPN documented in this encounter [facility] 01-08-2023 Note HNO ID: [id number] Author: Giancarlo Castaneda PA-C Service: ? Author Type: Physician Forger Helper Type: Progress Notes Filed: 01/08/2023 9:45 AM Note Text: 82 year old female with c/o here to establish care Prior physician Dr. Del Real. Reason for change: preference. Current concerns, asking if I will take her daughter as a patient. Daughter Che overdosed on DIANE, on dialysis, in [facility]. On ventilator x 5 days. Left side paralyzed from laying on floor. Coming home Saturday, asking if I will accept her again. Developed Covid, isolated x 14 days which set back therapy. Significant other Norman Gastelum in early dementia, also very stressful. Coronary artery disease involving [place] coronary artery of [place] heart without angina pectoris Hyperlipidemia with target ldl less than 100 Essential hypertension Hypertensive kidney disease with stage 3a chronic kidney disease (hcc) Cardiovascular interval hx: 02/27/2022 last follow-up cardiology with Dr.Cyril Loveori. 08/08/2021 pharmacologic nuclear stress test: Sinus rhythm 61 bpm baseline, obtained heart rate of 83 bpm at 58% of maximum predicted, no ST or T wave changes to suggest abnormal flow, none specific ST changes noted which do not meet criteria for ischemia. SPECT analysis: Normal tracer uptake throughout the myocardium, no areas of reversibility to suggest ischemia Conclusion normal stress test. Preserved ejection fraction. 07/26/2021 [facility]: [facility] [place]: ER follow-up for chest pain, history of hypertension and mitral valve prolapse. 12/23/2019 echocardiogram: LV size and LV SF WNL, ejection fraction 60%. Stage I diastolic dysfunction. Mitral valve prolapse PAP 28 mmHg 06/30/2014 echocardiogram: LV size and LV SF WNL, EF 55% mitral valve prolapse, trivial MVi 2014 heart cath: Normal left main coronary artery LAD mild disease LCx no high-grade stenosis RCA no significant stenosis Preserved ejection fraction by echo 10/16/2014: Normal pharmacologic myocardial perfusion scan with preserved ejection fraction Current meds: Lisinopril 20mg tablets once a day Atorvastatin 20 mg daily at bedtime Amlodipine 5 mg daily Carvedilol 3.125 mg twice a day Use of NTG: No Chest pain, arm, jaw pain, neck, or upper back pain suggestive of angina: No. Except r/t to arthritis SOB: No Dyspnea with exertion: No, sometimes has to stop at top of stairs. orthopnea: No Cough : dry cough racing or irregular heartbeats: No palpitations: No syncopal sx: No Headache: No Unexplainable fatigue Yes Leg swelling: No Nausea: No diaphoresis: No Heartburn: every once in awhile food related heartburn Claudication: No Smoking: No Following Low cholesterol, high fiber diet? Yes If on statin: muscle aches? No If on statin: GI sx or diarrhea? No Additional history none. Lab review: 11/21/2022 [facility]: WNL except BUN 16, CRE 0.9, eGFR 59 11/21/2022 [facility] CBC: W7.9- HGB 11.4-HCT 36.6-PLT 249, MCV 99.2 Component Latest Ref Rng AND Units 02/13/2022 08/27/2022 WBC 3.70 - 11.00 k/uL 8.81 RBC 3.90 - 5.20 m/uL 4.10 Hemoglobin 11.5 - 15.5 g/dL 12.4 Hematocrit 36.0 - 46.0 % 38.9 MCV 80.0 - 100.0 fL 94.9 MCH 26.0 - 34.0 pg 30.2 MCHC 30.5 - 36.0 g/dL 31.9 RDW-CV 11.5 - 15.0 % 13.2 Platelet Count 150 - 400 k/uL 269 MPV 9.0 - 12.7 fL 10.8 Neut% % 74.3 Abs Neut (ANC) 1.45 - 7.50 k/uL 6.54 Lymph% % 15.7 Abs Lymph 1.00 - 4.00 k/uL 1.38 [place]% % 8.2 Abs [place] <0.87 k/uL 0.72 Eosin% % 1.2 Abs Eosin <0.46 k/uL 0.11 Baso% % 0.3 Abs Baso <0.11 k/uL 0.03 Immature Gran % % 0.3 IMMATURE GRANS (ABS) <0.10 k/uL 0.03 NRBC /100 WBC 0.0 Absolute nRBC <0.01 k/uL <0.01 DTYPE Auto Protein, Total 6.3 - 8.0 g/dL 6.5 6.7 Albumin 3.9 - 4.9 g/dL 4.1 4.4 Calcium 8.5 - 10.2 mg/dL 10.0 10.7 (H) Bilirubin, Total 0.2 - 1.3 mg/dL 0.4 0.3 Alkaline Phosphatase 34 - 123 U/L 105 125 (H) AST 13 - 35 U/L 17 20 Glucose 74 - 99 mg/dL 106 (H) 80 BUN 7 - 21 mg/dL 15 16 Creatinine 0.58 - 0.96 mg/dL 0.98 (H) 0.92 Sodium 136 - 144 mmol/L 138 141 Potassium 3.7 - 5.1 mmol/L 3.3 (L) 3.8 Chloride 97 - 105 mmol/L 101 103 CO2 22 - 30 mmol/L 26 28 Anion Gap 9 - 18 mmol/L 11 10 ALT 7 - 38 U/L 14 10 eGFR- eGFR-All Other Races . eGFR-Pediatric Factor eGFR >=60 mL/min/1.73mA? 59 (L) 63 Cholesterol, Total <200 mg/dL Triglyceride <150 mg/dL HDL Cholesterol >39 mg/dL LDL Cholesterol <100 mg/dL Non HDL Cholesterol <130 mg/dL Fasting Time hrs VLDL Cholesterol <30 mg/dL TC:HDL Ratio <5.10 LDL:HDL Ratio <2.54 Magnesium 1.7 - 2.3 mg/dL Hx heavy drinking for a period No longer uses alcohol. Right TKA 2020 Dr. Viveros Right knee doing well Left knee bothersome but doesn't want surgery. Right shoulder hurts a lot, hard to hold up to dress or groom. Gastroesophageal reflux disease without esophagitis Ulcerative colitis confined to rectum (hcc) Collagenous colitis Intestinal d (more content not included)... [facility] 01-08-2023 History of Present illness Narrative 82 year old female with c/o here to establish care Prior physician Dr. Del Real. Reason for change: preference. Current concerns, asking if I will take her daughter as a patient. Daughter Che overdosed on DIANE, on dialysis, in [facility]. On ventilator x 5 days. Left side paralyzed from laying on floor. Coming home Saturday, asking if I will accept her again. Developed Covid, isolated x 14 days which set back therapy. Significant other Norman Gastelum in early dementia, also very stressful. Coronary artery disease involving [place] coronary artery of [place] heart without angina pectoris Hyperlipidemia with target ldl less than 100 Essential hypertension Hypertensive kidney disease with stage 3a chronic kidney disease (hcc) Cardiovascular interval hx: 02/27/2022 last follow-up cardiology with [facility]. 08/08/2021 pharmacologic nuclear stress test: Sinus rhythm 61 bpm baseline, obtained heart rate of 83 bpm at 58% of maximum predicted, no ST or T wave changes to suggest abnormal flow, none specific ST changes noted which do not meet criteria for ischemia. SPECT analysis: Normal tracer uptake throughout the myocardium, no areas of reversibility to suggest ischemia Conclusion normal stress test. Preserved ejection fraction. 07/26/2021 [facility]: [facility] [place]: ER follow-up for chest pain, history of hypertension and mitral valve prolapse. 12/23/2019 echocardiogram: LV size and LV SF WNL, ejection fraction 60%. Stage I diastolic dysfunction. Mitral valve prolapse PAP 28 mmHg 06/30/2014 echocardiogram: LV size and LV SF WNL, EF 55% mitral valve prolapse, trivial MVi 2014 heart cath: Normal left main coronary artery LAD mild disease LCx no high-grade stenosis RCA no significant stenosis Preserved ejection fraction by echo 10/16/2014: Normal pharmacologic myocardial perfusion scan with preserved ejection fraction Current meds: Lisinopril 20mg tablets once a day Atorvastatin 20 mg daily at bedtime Amlodipine 5 mg daily Carvedilol 3.125 mg twice a day Use of NTG: No Chest pain, arm, jaw pain, neck, or upper back pain suggestive of angina: No. Except r/t to arthritis SOB: No Dyspnea with exertion: No, sometimes has to stop at top of stairs. orthopnea: No Cough : dry cough racing or irregular heartbeats: No palpitations: No syncopal sx: No Headache: No Unexplainable fatigue Yes Leg swelling: No Nausea: No diaphoresis: No Heartburn: every once in awhile food related heartburn Claudication: No Smoking: No Following Low cholesterol, high fiber diet? Yes If on statin: muscle aches? No If on statin: GI sx or diarrhea? No Additional history none. Lab review: 11/21/2022 [facility]: WNL except BUN 16, CRE 0.9, eGFR 59 11/21/2022 [facility] CBC: W7.9- HGB 11.4-HCT 36.6-PLT 249, MCV 99.2 Component Latest Ref Rng & Units 02/13/2022 08/27/2022 WBC 3.70 - 11.00 k/uL 8.81 RBC 3.90 - 5.20 m/uL 4.10 Hemoglobin 11.5 - 15.5 g/dL 12.4 Hematocrit 36.0 - 46.0 % 38.9 MCV 80.0 - 100.0 fL 94.9 MCH 26.0 - 34.0 pg 30.2 MCHC 30.5 - 36.0 g/dL 31.9 RDW-CV 11.5 - 15.0 % 13.2 Platelet Count 150 - 400 k/uL 269 MPV 9.0 - 12.7 fL 10.8 Neut% % 74.3 Abs Neut (ANC) 1.45 - 7.50 k/uL 6.54 Lymph% % 15.7 Abs Lymph 1.00 - 4.00 k/uL 1.38 [place]% % 8.2 Abs [place] <0.87 k/uL 0.72 Eosin% % 1.2 Abs Eosin <0.46 k/uL 0.11 Baso% % 0.3 Abs Baso <0.11 k/uL 0.03 Immature Gran % % 0.3 IMMATURE GRANS (ABS) <0.10 k/uL 0.03 NRBC /100 WBC 0.0 Absolute nRBC <0.01 k/uL <0.01 DTYPE Auto Protein, Total 6.3 - 8.0 g/dL 6.5 6.7 Albumin 3.9 - 4.9 g/dL 4.1 4.4 Calcium 8.5 - 10.2 mg/dL 10.0 10.7 (H) Bilirubin, Total 0.2 - 1.3 mg/dL 0.4 0.3 Alkaline Phosphatase 34 - 123 U/L 105 125 (H) AST 13 - 35 U/L 17 20 Glucose 74 - 99 mg/dL 106 (H) 80 BUN 7 - 21 mg/dL 15 16 Creatinine 0.58 - 0.96 mg/dL 0.98 (H) 0.92 Sodium 136 - 144 mmol/L 138 141 Potassium 3.7 - 5.1 mmol/L 3.3 (L) 3.8 Chloride 97 - 105 mmol/L 101 103 CO2 22 - 30 mmol/L 26 28 Anion Gap 9 - 18 mmol/L 11 10 ALT 7 - 38 U/L 14 10 eGFR- eGFR-All Other Races . eGFR-Pediatric Factor eGFR >=60 mL/min/1.73m 59 (L) 63 Cholesterol, Total <200 mg/dL Triglyceride <150 mg/dL HDL Cholesterol >39 mg/dL LDL Cholesterol <100 mg/dL Non HDL Cholesterol <130 mg/dL Fasting Time hrs VLDL Cholesterol <30 mg/dL TC:HDL Ratio <5.10 LDL:HDL Ratio <2.54 Magnesium 1.7 - 2.3 mg/dL Hx heavy drinking for a period No longer uses alcohol. Right TKA 2020 Dr. Viveros Right knee doing well Left knee bothersome but doesn't want surgery. Right shoulder hurts a lot, hard to hold up to dress or groom. 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 Current symptoms: heart burn I eats something she shouldn't. Last Mg level if on PPI chronically: 08/26/2020 1.6. Heartburn is controlled: Yes. Dysphagia: No. Bloody or black stools: No. Bowel changes: No. Last EGD and/or colonoscopy: . 11/07/2016 [facility]GD [facility]: Stomach, antrum, biopsy - Gastric antral-type mucosa with reactive gastropathy. - Separate fragments of oxyntic-type mucosa with no significant pathologic change. 05/17/[address] Bernardo entire colon within normal limits 04/18/2011 colonoscopy, Dr. Sexton: Non-bleeding internal hemorrhoids, diverticulosis of the large intestine otherwise negative 1. Proximal ascending colon, biopsy (A) - Colonic mucosa with no significant pathologic changes. - No evidence of granulomas or dysplasia. 2. Distal ascending colon, biopsy (B) - Colonic mucosa with no significant pathologic changes. - No evidence of granulomas or dysplasia. 3. Mid transverse colon, biopsy (C) - Colonic mucosa with no significant pathologic changes. - No evidence of granulomas or dysplasia. 4. Colon, 40 cm, biopsy (D) - Colonic mucosa with no significant pathologic changes. - No evidence of granulomas or dysplasia. 5. Sigmoid colon, biopsy (E) - Colonic mucosa with no significant pathologic changes. - No evidence of granulomas or dysplasia. 6. Rectum, biopsy (F) - Colonic mucosa with no significant pathologic changes. - No evidence of granulomas or dysplasia. 02/22/2005 Colonoscopy, Dr. Sexton: randomoccasional heart burn if eats biopsies:the histomorphologic features are consistent with a diagnosis of collagenous colitis, however, given the presence of active inflammation we cannot exclude the possibility of a superimposed active colitis. 12/11/2002 colonoscopy, Dr. Sexton: 1. Small non-bleeding internal hemorrhoids were present [455.0]. 2. The mucosa in the transverse colon, the splenic flexure, the descending colon and the rectosigmoid junction was normal appearing. 3. There was blunting of the vascular pattern in the cecum, the ascending colon and the hepatic flexure. 4. Ulcerative colitis of the rectum and the distal rectum. [556.9]. Multiple biopsies were obtained from the rectum. Postmenopausal atrophic vaginitis No medication, not sexually active, not really concerning to her Chronic anxiety Insomnia secondary to anxiety Depression, major, recurrent, moderate (hcc) Daughter drug addicted Son murdered Current medications: Klonopin 0.5mg qHS Bupropion XL 300 mg daily Sertraline [address] Del Real refused to refill Klonopin without psychiatrist's approval Sees Dr. Drake, psych who refills. Inflammatory polyarthritis Dr. Enma Martinez Feeling worse: wants second opinion, hoping something different might be available. Was told lupus is more common with UC which I corrected ttro be an unlikely connection. Her diagnosis is inflammatory polyarthropathy which is like reactive to UC. Discussed serology: no positive for markers with lupus except high SHELLY. HLAB27 wasn't checked. SHELLY was elevated with homogenous which is associated with connective tissue disease. Current medications: Methotrexate 2.5 m tablets weekly Leucovorin 50 mg tablet daily Folic acid Gabapentin 100 mg twice a day Tylenol ES 2 tabs every 8h Consult rheumatology 06/30/2021: From Notes: Inflammatory polyarthropathy associated with ulcerative colitis. Past treatments include intermittent prednisone Tylenol, Voltaren gel. History of right total knee replacement. Serologic testing: negative for rheumatoid factor, anti-CCP, anti-DNA, SHELLY, rheumatoid factor, anti-CCP antibody, lupus anticoagulant. Had a normal urine protein creatinine ratio.. ESR 19 CRP of 34.4. positive for SHELLY 1: 320 homogenous pattern erythrocyte bile C4d of 20 B lymphocyte bound C4d of 111 antiphosphatidylserine/prothrombin IgM at 70.8 anticardiolipin IgM at 79.7 antibeta-2 glycoprotein 1 IgG at 23.[address] Meredith pain management: injections in neck for severe headaches, now resolved. Also injections in back which didn't help. Shoulder joints are gone. Sees [facility] Trouble lifting a carton of milk. Tender over trapezius. Nothing has helped. Notes ears sound muffled, concerned about wax. Sees [facility]. HISTORIES FAMILY HISTORY Problem Relation Age of Onset Coronary Artery Disease Mother Hypertension Mother Coronary Artery Disease Father Hypertension Father Arthritis Father Alcohol/Drug Daughter Diabetes Other Mother's side of family PAST MEDICAL HISTORY Diagnosis Date Atherosclerotic heart disease of [place] coronary artery without angina pectoris Dr. Cardona Cholelithiases Collagenous colitis 04/18/2012 DDD (degenerative disc disease), cervical Dr. Meredith Essential hypertension, benign History of left heart catheterization 10/29/[address] Cardona History of tobacco use Hyperlipidemia LDL goal < 100 04/25/2012 Hypokalemia 11/12/2012 Intestinal disaccharidase deficiencies and disaccharide malabsorption Major depressive disorder, single episode, unspecified Mitral valve disorders(424.0) Other chondrocalcinosis, left knee Systemic lupus erythematosus (HCC) Dr. Higgins Ulcerative colitis without complications ([facility]) 08/29/2015 Unilateral primary osteoarthritis, left knee PAST SURGICAL HISTORY Procedure Laterality Date ARTHROSCOPY KNEE DIAGNOSTIC W/WO SYNOVIAL BX SPX Left 03/07/2018 [facility]-Dr. Viveros ARTHRP KNE CONDYLE&PLATU MEDIAL&LAT COMPARTMENTS Right 07/14/2020 right total knee COLONOSCOPY FLX DX W/COLLJ SPEC WHEN PFRMD 04/18/2011 Colonoscopy COLONOSCOPY FLX DX W/COLLJ SPEC WHEN PFRMD 05/17/2016 Colonoscopy ESOPHAGOGASTRODUODENOSCOPY TRANSORAL DIAGNOSTIC 11/07/2016 EGD LAPAROSCOPY SURG CHOLECYSTECTOMY 10/17/2011 Cholecystectomy, lap LIG/TRNSXJ FLP TUBE ABDL/VAG APPR UNI/BI Tubal ligation RMVL LENS MATERIAL PHACOFRAGMENTATION ASPIR 08/2009 Cataract Extraction, right eye TONSILLECTOMY & ADENOIDECTOMY <AGE 14 TOTAL ABDOMINAL HYSTERECT W/WO RMVL TUBE OVARY Hysterectomy, GENE Social History Tobacco Use Smoking status: Former Packs/day: 1.00 Years: 15.00 Pack years: 15.00 Types: Cigarettes Quit date: 1996 Years since quittin.2 Smokeless tobacco: Never Substance Use Topics Alcohol use: Yes Comment: RARELY Drug use: No ACTIVE PROBLEM LIST Intestinal Disaccharidase Deficiencies and Disaccharide Malabsorption BENIGN HYPERTENSION Headache Meniscus, Medial, Derangement Collagenous Colitis Hyperlipidemia With Target Ldl Less Than 100 Postmenopausal Atrophic Vaginitis Ulcerative Colitis Without Complications ([facility]) Gastroesophageal Reflux Disease Without Esophagitis Coronary Artery Disease Involving [place] Coronary Artery Ckd (Chronic Kidney Disease) Stage 3, Gfr 30-59 Ml/Min (Hcc) Depression, Major, Recurrent, Moderate (Hcc) Chronic Anxiety Insomnia Secondary to Anxiety Hypertensive Kidney Disease With Chronic Kidney Disease Stage Iii (Hcc) Current Outpatient Medications Medication Sig Dispense Refill clonazePAM (KLONOPIN) 0.5 mg tablet Take one tablet at night daily for insomnia 15 tablet 0 quinapril (ACCUPRIL) 10 mg tablet Take 2 tablets by mouth once daily. 60 tablet 5 buPROPion XL (WELLBUTRIN XL) 300 mg 24 hr tablet take 1 tablet by mouth every morning 90 tablet 1 atorvastatin (LIPITOR) 20 mg tablet Take 1 tablet by mouth daily at bedtime. For cholesterol. 90 tablet 1 leucovorin (LEUCOVORIN) 15 mg tablet methotrexate 2.5 mg tablet Take 15 mg by mouth one time only. 7- 2.5mg tabs po weekly FOLIC ACID ORAL Take by mouth. omeprazole (PRILOSEC) 20 mg capsule Take 1 capsule by mouth twice daily. 180 capsule 3 sertraline (ZOLOFT) 100 mg tablet Take 1 tablet by mouth once daily. 90 tablet 3 gabapentin (NEURONTIN) 100 mg capsule Take 100 mg by mouth twice daily. Dr Mcdermott amLODIPine (NORVASC) 5 mg tablet Take 1 tablet by mouth once daily. 90 tablet 3 carvedilol (COREG) 3.125 mg tablet 3.125 mg twice daily with meals. No current facility-administered medications for this visit. ADVANCE DIRECTIVE DISCUSSION due on 10/28/2022 EXAM: BP 132/70 Pulse 69 Resp 16 Wt 68.9 kg (152 lb) SpO2 96% BMI 24.43 kg/m Pleasant well appearing elderly woman in no acute distress. Alert and oriented all spheres. Normal affect and cognition. Speech normal. No deficits to learning or comprehension. Skin warm, dry, pink to lips and nailbeds. Normal turgor. Skin thin, senile purpura Respirations regular and unlabored. HEENT: NCAT. PERRLA. EOMI. No scleral icterus or conjunctival injection. Left hearing aides at home. TM's clear. Nose and oropharynx free from injection or lesion. Oral membranes moist and pink. No cervical lymph nodes. Thyroid non-tender, no masses, or enlargement. Carotids pulses 2+/4+ without bruits. Neck veins are flat Chest is normal shape. Lungs are clear to all walters with good air exchange through out. HRRR without murmur or gallop. No lifts, heaves, or rubs. Abdomen: active bowel sounds throughout, soft, nontender, no masses or organomegaly. No CVAT. No abdominal bruits, axillary or inguinal nodes. Femoral pulses 2/4+ without bruit. Extrem: no clubbing or cyanosis. Edema: none. Extremities are warm and pink with prompt capillary refill. Reduced strength upper ROM right shoulder. Independently rises from chair an onto table without difficulty. ASSESSMENT/PLAN: 1. Encounter to establish care - ICD9: V65.8, ICD10: Z76.89 (primary diagnosis) 2. Coronary artery disease involving [place] coronary artery of [place] heart without angina pectoris - ICD9: 414.01, ICD10: I25.10 Stable, asymptomatic. Follows with [facility] 3. Hyperlipidemia with target LDL less than 100 - ICD9: 272.4, ICD10: E78.5 - good control - Continue current medication. - COMP METABOLIC PANEL - LIPID PANEL BASIC - CK CREATINE KINASE 4. Essential hypertension - ICD9: 401.9, ICD10: I10 - good control - Continue current medication(s) - Recommended regular aerobic exercise. - Recommend home blood pressure monitoring, to bring results in on next visit - Goal of BP <130/80 5. Hypertensive kidney disease with stage 3a chronic kidney disease (HCC) - ICD9: 403.90, 585.3, ICD10: I12.9, N18.31 - good control - Continue current medication(s) - Recommended regular aerobic exercise. - Recommend home blood pressure monitoring, to bring results in on next visit - Goal of BP <130/80 - eGFR: Stable - Counseled on avoiding regular use of NSAIDs, adequate hydration, potential risk of IV dye 6. Gastroesophageal reflux disease without esophagitis - ICD9: 530.81, ICD10: K21.9 - Discussed lifestyle modifications including limiting caffeine, no meals three hours before sleep, and head of bed elevation - Continue treatment with Prilosec 20 mg QD 7. Ulcerative colitis confined to rectum (HCC) - ICD9: 556.2, ICD10: K51.20 Stable, no recurrence in years - HLA-B27 PCR - CBC + DIFF - COMP METABOLIC PANEL 8. Collagenous colitis - ICD9: 558.9, ICD10: K52.831 As above - CBC + DIFF - COMP METABOLIC PANEL 9. Intestinal disaccharidase deficiencies and disaccharide malabsorption - ICD9: 271.3, ICD10: E73.9 Avoids lactose. 10. Postmenopausal atrophic vaginitis - ICD9: 627.3, ICD10: N95.2 Not an issue currently 11. Chronic anxiety - ICD9: 300.00, ICD10: F41.9 12. Insomnia secondary to anxiety - ICD9: 300.00, 327.02, ICD10: F41.9, F51.05 13. Depression, major, recurrent, moderate (HCC) - ICD9: 296.32, ICD10: F33.1 Following with psychiatry: continuing same medications 14. Inflammatory polyarthritis (HCC) - ICD9: 714.9, ICD10: M06.4 Suspect reactive to UC Patient asking for second opinion for management. - CONSULT TO RHEUM/IMMUN DISEASE - HLA-B27 PCR - CK CREATINE KINASE 15. Use of proton pump inhibitor therapy - ICD9: V58.69, ICD10: Z79.899 - MAGNESIUM BLD F/u 3 months or sooner as needed. Giancarlo Castaneda PA-C 45 minute office visit 15 minutes chart completion. 5:42 AM 60 minute chart review, chart prep, and problem list update. Some of this note may have been copied and pasted for the purpose of history context and comparison. Giancarlo Castaneda PA-C documented in this encounter [facility] 12-20-2022 Miscellaneous Notes Phoned patient and given provider's message below. Patient states that is what she was talking about. States she will call back in about a week to schedule transfer care appt. Okay to transfer care which is what I think she means. Thanks, Lalit Castaneda PA-C Patient asking MALU Cohn to call her. Patient did not want to say why. Patient states he asked me to call him. [phone] documented in this encounter [facility] 10-24-2022 Miscellaneous Notes PDMP website checked and validated. All prescriptions have been APPROPRIATELY filled. No suspicious activity was identified. 10/24/2022 by Sneha Coles APRN.CHRISTIAN RX INSTRUCTIONS: Patient aware RX will be sent to pharmacy. No need to notify patient. Last OV: 08/27/22 Last refill: 10/10/22 With 14 and 0 refills Follow up: 02/25/23 Mary Mondragon MA documented in this encounter [facility] 10-10-2022 Miscellaneous Notes PDMP website checked and validated. All prescriptions have been APPROPRIATELY filled. No suspicious activity was identified. 10/10/2022 by Sneha Coles APRN.CHRISTIAN documented in this encounter [facility] 10-10-2022 Miscellaneous Notes Last office visit: 08/27/22 F/u scheduled: 02/25/23 Paige Dominguez Ma documented in this encounter [facility] 10-04-2022 History of Present illness Narrative Patient presents for Twinrix vaccine. Denies any problems at this time. Tolerated injection well. Letty Valdovinos LPN documented in this encounter [facility] 09-05-2022 Miscellaneous Notes PDMP website checked and validated. All prescriptions have been APPROPRIATELY filled. No suspicious activity was identified. 09/05/2022 by Sneha Coles APRN.CHRISTIAN RX INSTRUCTIONS: Patient aware RX will be sent to pharmacy. No need to notify patient. Last OV: 08/27/22 with PCP Last refill: 08/06/22 With 30 and 0 refills Follow up: 02/25/23-6 month F/U with CESAR Mondragon MA documented in this encounter [facility] 08-30-2022 History of Present illness Narrative Patient presents for Twinrix vaccine. Denies any problems at this time. Tolerated injection well. Letty Valdovinos LPN documented in this encounter [facility] 08-29-2022 Miscellaneous Notes Patient telephoned. [facility] for Twinrix vaccine. Patient updated on med change to Lipitor. Voices understanding. Lacy Sheehan LPN Order for Twinrix place, please assist in scheduling nurse visit. Please let patient know about Dr. Del Real switching her to Lipitor 20 mg due to interaction of higher dose of simvastatin and her amlodipine. Thanks, Sneha Coles APRN.CHRISTIAN Patient returned call and she would like to scheduled a nurse visit for the vaccines. Orders needs placed prior to scheduling visit. Below message was not given regarding medication change. When calling patient back to scheduled please give patient message below also. Called and left message on patients voicemail to return call to the office and ask to speak with a triage nurse. sAter Swanson Ma When entering her higher dosage, it is noted that there is an interaction with amlodipine. Taking higher than 20 mg of simvastatin with amlodipine can cause rhabdomyolysis. Would instead switch her to Lipitor 20 mg which would be stronger than the Simvastatin. Recheck lipid panel in 3 months Reviewed provider's message with patient. Patient voiced understanding. Patient agreeable with increase of simvastatin and will double up on her current 20mg tabsuntil 40mg comes from [facility]. Patient is immune to MMR and does not need this updated. Is not immune to hepatitis A or B. Recommend Twinrix 3 dose series at 0, 1, and 6 months with her history of ulcerative colitis. If agreeable, please schedule NV. Negative for infection with hepatitis B or C. Patient's cholesterol is high despite taking simvastatin 20 mg daily. Would recommend increasing this to 40 mg daily and rechecking in 3-6 months. Will send to requested pharmacy if agreeable. Other labs normal. documented in this encounter [facility] 08-27-2022 History of Present illness Narrative Medicare Yearly Visit Medical B eligibilty date 2007 Patient is here today for medicare wellness exam. Has not had medicare wellness exam in the past. Notes that she had a trip and fall about 3 months ago which she saw Sneha Coles for in May. Was wearing sandals and tripped on curb. Has not had any falls since that time. Does not use cane or walker for ambulation. Has gotten rid of her flip flops, but still has sandals. BP well controlled on current regimen. Depression controlled on Zoloft and Wellbutrin without side effects. Not seeing counseling or psychiatry now. Denies SI/HI. Patient is on Klonopin for difficulty sleeping. Was given doxepin, vistaril, and trazodone for sleep which she stated did not work well for her and made her feel groggy. States that she has been taking this ever since her son was murdered years ago. Last dose was last night. Following up with rheumatology for history of lupus. States that when this flares up her UC will also flare up. Controlled with methotrexate and Leukovorin weekly. Does not see GI for her ulcerative colitis. Last colonoscopy was in 2015 which was normal. Patient has appointment later today with Dr. Meredith's office to discuss recent HOMER for DDD cervical spine. Patient has had one MMR vaccine that she can recall. Not sure if she has been vaccinated for hepatitis A or B. PAST MEDICAL HISTORY Diagnosis Date Atherosclerotic heart disease of [place] coronary artery without angina pectoris Dr. Cardona Cholelithiases Collagenous colitis 04/18/2012 DDD (degenerative disc disease), cervical Dr. Meredith Essential hypertension, benign History of left heart catheterization 10/29/[address] Cardona History of tobacco use Hyperlipidemia LDL goal < 100 04/25/2012 Hypokalemia 11/12/2012 Intestinal disaccharidase deficiencies and disaccharide malabsorption Major depressive disorder, single episode, unspecified Mitral valve disorders(424.0) Other chondrocalcinosis, left knee Systemic lupus erythematosus (HCC) Dr. Higgins Ulcerative colitis without complications (HCC) 08/29/2015 Unilateral primary osteoarthritis, left knee PAST SURGICAL HISTORY Procedure Laterality Date ARTHROSCOPY KNEE DIAGNOSTIC W/WO SYNOVIAL BX SPX Left 03/07/2018 [facility]-Dr. Viveros ARTHRP KNE CONDYLE&PLATU MEDIAL&LAT COMPARTMENTS Right 07/14/2020 COLONOSCOPY FLX DX W/COLLJ SPEC WHEN PFRMD Colonoscopy, Several COLONOSCOPY FLX DX W/COLLJ SPEC WHEN PFRMD 04/18/2011 Colonoscopy COLONOSCOPY FLX DX W/COLLJ SPEC WHEN PFRMD 05/17/2016 Colonoscopy ESOPHAGOGASTRODUODENOSCOPY TRANSORAL DIAGNOSTIC 11/07/2016 EGD LAPAROSCOPY SURG CHOLECYSTECTOMY 10/17/2011 Cholecystectomy, lap LIG/TRNSXJ FLP TUBE ABDL/VAG APPR UNI/BI Tubal ligation PAST SURGICAL HISTORY OF Right knee surgery RMVL LENS MATERIAL PHACOFRAGMENTATION ASPIR 08/2009 Cataract Extraction, right eye TONSILLECTOMY & ADENOIDECTOMY <AGE 14 TOTAL ABDOMINAL HYSTERECT W/WO RMVL TUBE OVARY Hysterectomy, GENE ALLERGIES: Abilify [Aripiprazole], Bandaid Adhes [Other], Biaxin [Clarithromycin], Darvon [Propoxyphene], Entex La [Phenylephrine-Guaifenesin], Erythromycin, Oxycodone, Pseudoephr [Other], Sulfa (Sulfonamide Antibiotics), and Vicodin [Hydrocodone-Acetaminophen] Medications reviewed: Yes FAMILY HISTORY Problem Relation Age of Onset Coronary Artery Disease Mother Coronary Artery Disease Father Hypertension Mother Hypertension Father Diabetes Other Mother's side of family Arthritis Father Alcohol/Drug Daughter SOCIAL HISTORY: Social History Tobacco Use Smoking status: Former Smokeless tobacco: Never Tobacco comments: quit 15 years ago Substance Use Topics Alcohol use: Yes Comment: RARELY Drug use: No Dina denies regular aerobic exercise. She watches her diet for sodium, low fat and low cholesterol most of the time. List of current specialists seen: Dr Cardona-cardiology Dr Higgins- rheumatology Dr Kellogg Ortho Dr Santos-Optho Dr Carrera-pain management End of Live Planning discussed including patients advanced directive wishes: Yes-has documentation at home she will bring in for living will, DPOA, and DNR status. I am willing to follow Dina's advanced directives. Functional Ability/Safety Screen 1. Was the patient's timed Up and Go test unsteady or longer than 30 seconds? No 2. Does the patient need help with the phone, transportation, shopping,preparing meals, housework, laundry, medications or managing money? 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 3. Does your home have rugs in the hallway, lack of grab bars in the bathroom, lack of handrails on the stairs or have poor lighting? No Hearing Evaluation: wears hearing aids PHYSICAL EXAM BP 128/74 Pulse 66 Resp 16 Ht 168 cm (5' 6.14 ) Wt 68.7 kg (151 lb 6.4 oz) SpO2 95% BMI 24.33 kg/m Alert and oriented X 3: YES MINICO/5 Body mass index is 24.33 kg/m . Visual acuity: OD: 20/25 OS: 20/ 25 OU: 20/20 No correction General Appearance: Well appearing, alert, in no acute distress, well-hydrated, well nourished.. Skin: Skin color, texture, turgor normal, no suspicious rashes or lesions. Lungs: Lungs clear to auscultation. No wheezing, rhonchi, rales.. Heart: RRR without murmur, gallop, or rubs. No ectopy. ASSESSMENT/PLAN: 81 year old female The following prevention plan was discussed during the office visit and provided to the patient: 1. Medicare annual wellness visit, subsequent - ICD9: V70.0, ICD10: Z00.00 (primary diagnosis) - Counseled on healthy diet and regular exercise - Fall avoidance - Counseled on healthy diet and regular exercise - Calcium intake with supplements or by diet of 1000 mg/day for under 50, 0395-2432 mg/day for 50+ - Follow up for annual exam in one year - LIPID PANEL, NONFASTING - CBC - COMP METABOLIC PANEL - RUBEOLA (MEASLES)IGG - RUBELLA IGG AB - MUMPS IGG AB - HEP REMOTE PANEL BL - HEPATITIS A ANTIBODY, IGG 2. Depression, major, recurrent, moderate (HCC) - ICD9: 296.32, ICD10: F33.1 Controlled on current regimen. - CONSULT TO [facility] 3. Chronic insomnia - ICD9: 780.52, ICD10: F51.04 Patient has tried multiple medications for a few days with side effects and would like to remain on her Klonopin for sleep. Discussed with patient that I do not prescribe this nursing home and will need to see specialist. Notes she has hard time sleeping due to her son being murdered 20 years ago, so may be PTSD component. Will have her follow up with psychiatry for further evaluation. Last dose was last night. Will need to complete controlled substance agreement and check urine drug screen. - CONSULT TO [facility] 4. meterman prescription benzodiazepine use - ICD9: V58.69, ICD10: Z79.899 See above. - TOX SCREEN ROUT UR - PAIN PANEL, UR QUANT - PAIN PANEL, UR QUANT - SPECIMEN VALIDITY, URINE 5. Coronary artery disease involving [place] coronary artery of [place] heart without angina pectoris - ICD9: 414.01, ICD10: I25.10 Asymptomatic on current regimen. F/u with Dr. Cardona. 6. Other ulcerative colitis without complication (HCC) - ICD9: 556.8, ICD10: K51.80 No recent flares. Obtain titers to update vaccinations. - RUBEOLA (MEASLES)IGG - RUBELLA IGG AB - MUMPS IGG AB - HEP REMOTE PANEL BL - HEPATITIS A ANTIBODY, IGG 7. Systemic lupus erythematosus, unspecified SLE type, unspecified organ involvement status (HCC) - ICD9: 710.0, ICD10: M32.9 Managed by rheumatology, will follow up their recommendations. Taylor Del Real MD documented in this encounter [facility] 08-06-2022 Miscellaneous Notes PDMP website checked and validated. All prescriptions have been APPROPRIATELY filled. No suspicious activity was identified. 08/06/2022 by Sneha Coles APRN.CNP documented in this encounter [facility] 07-10-2022 Miscellaneous Notes Pt notified, has picked up the short supply from [facility]. Paige Dominguez Ma Five day supply sent to [facility]. Not sure they will fill it since she has some in shipment. Sneha Coles APRN.CNP Pt calls states did also send a my chart message in regards to this but is in a pickle and needs something done before weekend. She states a script was sent to [facility] for clonazepam on Jun 27. She states for some reason the pharmacy forwared this to her mail away pharmacy [facility]. It says it shipped on 07/06/22 but will not get to her for 5-7 days. Asking if a short term script of this for just enough until that script reaches her could be called to [facility] Explain to pharmacy not to send that to mail away. documented in this encounter [facility] 07-10-2022 Miscellaneous Notes Last office visit: 05/30/22 F/u scheduled: 07/27/22 Paige Dominguez Ma documented in this encounter [facility] 06-27-2022 Miscellaneous Notes Notified via [employer]. Paige Dominguez Ma I refilled her prescription however she needs to make sure she makes it to the next appointment or I will not be able to refill. Sneha Coles APRN.CHRISTIAN PDMP website checked and validated. All prescriptions have been APPROPRIATELY filled. No suspicious activity was identified. 06/27/2022 by Sneha Coles APRN.CHRISTIAN sharifa-- 05/30/22 next-- 07/27/22 last refill--06/07/22 30 with 0 refills last labs--06/07/22 documented in this encounter [facility] 06-26-2022 Miscellaneous Notes Should have a refill remaining. Needs to establish care with new provider. documented in this encounter [facility] 05-30-2022 Miscellaneous Notes Per TE 05/11 patient declined wanting to even try medication an is refusing non controlled drug as treatment Kita Mendez Ma received fax requesting letter with more information why doxepin was recommended over controlled meds. Letter written and faxed Kita Mendez Ma Sneha TORIBIO was started for Doxepin and waiting to get approval or denial on medication from insurance. Patient is aware I am working on this but sent this mychart; Hi, I want to take the clonazapam. I can't change to something else again. Will you be able to call [facility] and straighten out that mess. Thank you. Sorry I do have 30 tablers. The pharmacist actually wrote his initials over the amount and I thought it said 14. So sorry. My mistake. I feel so confused at times with all this changing of medication. i hope my brain will go back to the way it was. This is really scary. kk documented in this encounter [facility] 05-30-2022 Instructions Sneha Coles APRN.CAN STACKER - 05/30/2022 10:01 AM EDT Images from the original note were not included. Frequently Asked Questions about Concussion What is a concussion? A concussion, or mild traumatic brain injury, is caused by a bump, jolt, or blow to the head that causes the brain to shift or twist rapidly inside the skull. A jolt to the body can also cause concussion if the impact causes the head to jerk forcefully backwards, forwards, rotate, or move to the side as in whiplash. A concussion is called mild because it is not usually life-threatening, and the symptoms are usually short-lived. However, the effects from a concussion can be serious and can last for days, weeks, or even longer. What are the common causes of concussion? The most common causes of concussions are falls, motor vehicle accidents, bicycling, and sport injuries. Any sport in which there is contact among the players, or which involves moving objects like a puck or a ball, can place the athlete at a higher risk for a concussion. Suffering a concussion increases the risk of suffering another during the first year following the injury. People with a history of previous concussion(s) are also at increased risk for prolonged symptoms after concussion. How is a concussion diagnosed? A medical professional should provide a thorough examination. This includes a history of the injury, a review of concussion symptoms, a comprehensive physical and neurological exam, balance testing and cognitive function testing. Most concussions do not require brain imaging with a CT or MRI. All [facility] have laws to protect youth/student athletes from returning to the sport before it is safe. A note from a licensed medical professional is required to certify the athlete s is recovered prior to athletic return. What are the common symptoms of concussion? Concussion symptoms usually appear immediately or just a few minutes after the head injury however, in some instances, symptoms may take several hours or even days to appear. The most common symptom of a concussion is a headache. Other common symptoms include dizziness, nausea, sensitivity to light and noise, sleep difficulties, fatigue, trouble with concentration, changes in behavior, irritability, sadness, nervousness and anxiety. For additional information or to make an appointment, go to [email or web address] or call [phone] ([phone]). What does concussion treatment/management involve? Most patients symptoms can be managed by observation and encouraging rest for the first few days. An appointment with a health care provider will individualize a gradual return to work/school and physical activity after initial rest. Medications for pain relief, unless prescribed, are not recommended as they may hide symptoms are worsening each day. If symptoms are only worsening, seek medical evaluation immediately. Treatment of concussion is based on a plan called relative rest . The purpose is for the brain to be active, but not overactive and it should not become underactive either. There is a need to find balance in activities because the overactive brain can develop more symptoms and the underactive brain can become more sluggish. Both scenarios can make concussion recovery take longer. Four Principles of Relative Rest are as follows: 1. Recognize when your symptoms worsen with activity. 2. Temporarily remove yourself from those activities take a break. 3. Rest until the symptoms improve or go away close your eyes and put head down. 4. Return to those activities once you feel better. Can I exercise with a concussion? Yes, light cardiovascular exercise 2 days after concussion injury has been shown to improve a patient s recovery time and symptoms however, it is recommended that a patient refrain from the same level of physical activity as prior to the injury. Gym classes should not be attended until cleared by your medical team. Walking or light riding on a stationary bike for exercise is okay in order to keep the body moving increasing blood flow to the brain but you ll want to avoid anything that significantly increases heart rate. Exercise should not provoke symptoms. If symptoms worsen with light cardiovascular exercise, slow down the tempo of the exercise and see if symptoms improve. If it does, continue at that intensity. If symptoms continue despite slowing down, discontinue activity for the day. Patients who are student athletes should focus on becoming a student first, adding athletic activity as their recovery allows under the guidance of a licensed medical professional whenever possible. For additional information or to make an appointment, go to [email or web address] or call [phone] ([phone]). I can t seem to focus or concentrate now. Should I be going to school? It's helpful to identify and limit things that cause symptoms to return or increase. Most of the time, you can control the environment at home, where the lights can be turned down, the noise level controlled, and studies paced by taking frequent breaks and resting as needed. Patients can go back to work/school as soon as they feel they are ready. For many, this means when patients can handle 25-45 minutes of reading/studying at home without increasing symptoms but requiring breaks. When going back to work/school, start with the easiest subjects/activities and increase as tolerated. That doesn t necessarily mean that a patient go to work/school for a set amount of time. The patient should start off with some easier tasks/classes each day and moving towards the harder ones when they feel able. If symptoms start during work/class, the patient should take a small break by closing their eyes or putting their head down until symptoms start to go away. If symptoms don t improve or start to get worse, they can go to the nurse s office/quiet room to lie down, or even go home to rest. Note taking can be challenging with a concussion due to light sensitivity from screens, painful eye and neck movements or even multi-tasking. To control symptoms, pre-printed notes in advance of a meeting or lesson are helpful. Focus on one task at a time. Utilize the sheet to add content from the discussion as needed. Just like getting into shape, mental stamina will improve as the patient listens to and manages symptoms. A patient shouldn t be afraid to rest and recover when they get home, they may be very tired and fatigued. Just like a phone they need to recharge and can nap but should do so briefly to not affect sleep. The power of diet and hydration: Though you may not be hungry or thirsty, make sure to get a balanced diet and hydration. Low blood sugar and dehydration mimic concussion symptoms. Making sure these are not a factor aids in faster recovery. What should I do if I have trouble falling asleep or sleeping through the night? Avoid screen time at least 1 hour prior to going to bed. This include phones, TVs, computers and other electronic devices. Blue light wavelengths affects the body s natural ability to produce melatonin, a hormone that helps regulate sleep. An over the counter supplement of melatonin is also available and can be used to assist in falling and staying asleep. Begin with 1-3mg if needed. If sleep does not improve, see your medical provider as soon as possible. For additional information or to make an appointment, go to [email or web address] or call [phone] ([phone]). 1 How to Manage Concussion Symptoms The following information is to help guide you through the different symptoms that you may experience during your recovery. Symptom management is designed to give you tips to assist you in decreasing symptoms, as well as speeding up your recovery. LIMIT TRIGGERS CAUSING SYMPTOMS: TIPS FOR MANAGEMENT Any activity that produces or increases your symptoms is considered a trigger. It is important for you to know what aggravates your individual symptoms. Limiting triggers will help decrease symptoms each day This can allow for faster recovery and a return to activities sooner RELATIVE REST: We want the brain to remain active, but only as tolerated. This will require you to limit physical and mental activities that worsen your symptoms. When symptoms develop or worsen, stop that activity immediately, rest until your symptoms improve or resolve, and then resume the activity as tolerated. Try shorter activity periods (start at 5 minutes & increase as tolerated) Limit electronic device use (cellphones, computers, tablet pcs, etc.) as these can aggravate symptoms Adapt your schedule to accommodate your symptoms each day APPROPRIATE SLEEP: Our brains recover during sleep. Sleep makes you feel more rested and focused. Your sleep pattern may be disrupted after a concussion, causing daytime tiredness. If sleep is difficult, inform your medical team. Go to bed and get up at the same time each day Take a short nap (30-60 minutes) if tired during the day Naps should not affect night time sleep Eliminate bedroom distractions: i.e. TV, cellphones, computers, tablet pcs, etc. HEADACHE: May vary in location and intensity Typically will worsen with mental/physical stress as the day progresses Can worsen with the position of your head and neck, especially with reading, working on a computer, texting or studying If your headache becomes more intense or worsens, consult your medical team Take medication sparingly as directed. Do not mask symptoms and push through tasks. DIZZINESS: Common after concussion and is described as: Lightheadedness Room is spinning Pressure or feeling of a full head Fogginess or can t think clearly Woozy Off balance It is important that you communicate any of these symptoms of dizziness to your medical team, even if the symptoms are temporary or come and go For more information or to make an appointment, go to [email or web address] or call [phone] ([phone]). 1 NECK PAIN: TIPS FOR MANAGEMENT Discomfort along your hairline or on the top of your shoulders is common with concussion Numbness and pain into your arms and hands is not common and should be reported can worsen with the position of your head and neck, especially with reading, working on a computer, texting or studying Physical therapy may be needed for resolution. It is important to let your medical team know if you develop neck pain after your concussion Use ice or cold pack at the base of the skull as needed for neck pain for about 15-20 minutes Try to use correct back and neck posture for relief LIGHT AND NOISE SENSITIVITY: Both are common after an injury Different kinds of light and noise can affect each person differently Limit exposure to these triggers by controlling the environment around you whenever possible Gradually reintroduce these stimuli, increasing exposure over time Turning indoor lights down and closing blinds may be necessary Sunglasses and hats can be used outside or with bright lights Limit electronic devices (cellphones, computers, TV, etc.) as these are known to aggravate symptoms Keep volume low on TVs or music Use foam earplugs to control noise in outdoor/public environments Report these to your medical team For more information or to make an appointment, go to [email or web address] or call [phone] ([phone]). documented in this encounter [facility] 05-30-2022 History of Present illness Narrative 05/30/2022 Patient presents with: ED Follow-up: Fell; has headaches, dizziness and nausea x3 days SUBJECTIVE: This is a 81 year old that is here today for Above Complaints. HOSPITAL/ER FOLLOW UP: Reason for visit: fall Which facility: [facility] Date of visit: 05/21/2022 Diagnosis: concussion Testing done: CT brain without contrast Treatment given: none Current symptoms: mild headache Tripped over the curb when going into [employer] about 11 days ago. Hit face, left shoulder and left knee. Was evaluated by squad but did not go to ER that day. Went to ER three days after fall due to headaches and dizziness. CT of brain normal. Yesterday had a pretty severe headache with some nausea. Took tylenol but did not seem to help. Today still with mild headache to bilateral temples which is described as a dull ache. Reports it is has improved quite a bit since yesterday. Admits she has been reading a lot. Admits to some feelings of being unbalanced when she first stands up but has not had any other falls prior or since this current one. Denies shoulder, knee, or facial pain, visual changes, dizziness, lightheadedness, vomiting, facial drooping, confusion, extremity numbness, tingling, or weakness ER records reviewed PAST MEDICAL HISTORY Diagnosis Date Atherosclerotic heart disease of [place] coronary artery without angina pectoris Cholelithiases Collagenous colitis 04/18/2012 Dyslipidemia Essential hypertension, benign History of left heart catheterization 10/29/[address] Cardona Hyperlipidemia LDL goal < 100 04/25/2012 Hypokalemia 11/12/2012 Intestinal disaccharidase deficiencies and disaccharide malabsorption Major depressive disorder, single episode, unspecified Mitral valve disorders(424.0) Other chondrocalcinosis, left knee Other ulcerative colitis Ulcerative colitis without complications (HCC) 08/29/2015 Unilateral primary osteoarthritis, left knee ALLERGIES Abilify [Aripiprazole], Bandaid Adhes [Other], Biaxin [Clarithromycin], Darvon [Propoxyphene], Entex La [Phenylephrine-Guaifenesin], Erythromycin, Oxycodone, Pseudoephr [Other], Sulfa (Sulfonamide Antibiotics), and Vicodin [Hydrocodone-Acetaminophen] MEDICATIONS Current Outpatient Medications Medication Sig Doxepin 3 mg tab Take 1 tablet by mouth daily at bedtime. clonazePAM (KLONOPIN) 0.5 mg tablet Take 1 tablet by mouth at bedtime as needed for up to 30 days. leucovorin (LEUCOVORIN) 15 mg tablet buPROPion XL (WELLBUTRIN XL) 300 mg 24 hr tablet Take 1 tablet by mouth every morning. quinapril (ACCUPRIL) 20 mg tablet TAKE 1 TABLET BY MOUTH ONCE DAILY. methotrexate 2.5 mg tablet take 4 tablets by mouth every week FOLIC ACID ORAL Take by mouth. potassium chloride (K-TAB) 10 mEq tablet Take 1 tablet by mouth once daily. omeprazole (PRILOSEC) 20 mg capsule Take 1 capsule by mouth twice daily. sertraline (ZOLOFT) 100 mg tablet Take 1 tablet by mouth once daily. simvastatin (ZOCOR) 20 mg tablet Take 1 tablet by mouth daily at bedtime. gabapentin (NEURONTIN) 100 mg capsule Take 100 mg by mouth twice daily. Dr Mcdermott amLODIPine (NORVASC) 5 mg tablet Take 1 tablet by mouth once daily. carvedilol (COREG) 3.125 mg tablet 3.125 mg twice daily with meals. hydroCHLOROthiazide (HYDRODIURIL, ESIDRIX) 12.5 mg tablet Take 12.5 mg by mouth every other day. Every other day (Patient not taking: Reported on 05/02/2022 ) No current facility-administered medications for this visit. Medications and allergies reviewed by this provider. SOCIAL HISTORY Social History Tobacco Use Smoking status: Former Smoker Smokeless tobacco: Never Used Tobacco comment: quit 15 years ago Vaping Use Vaping Use: Not on file Substance Use Topics Alcohol use: Yes Comment: RARELY Drug use: No REVIEW OF SYSTEMS All other reviewed and negative other than HPI. OBJECTIVE: BP 118/76 Pulse 67 Temp 36.6 C (97.8 F) Resp 18 Wt 67.1 kg (148 lb) SpO2 96% BMI 22.50 kg/m . Vital signs reviewed by this provider. APPEARANCE Well appearing, alert, in no acute distress, well-hydrated, well nourished. EYES PERRLA, conjunctiva and sclera normal. HEAD: resolving ecchymosis to left eye EARS External ears normal, canals clear HEART RRR with normal S1 and S2, no murmurs, no gallops, no JVD appreciated LUNG clear to auscultation. No wheezes, rhonchi, or rales EXTREMITIES Extremities normal, No deformities, No skin discoloration and No edema NEURO Awake, alert and oriented x 3, Cranial nerves II-XII grossly intact, Reflexes symmetrical, Normal gait, No involuntary motions. and negative findings: speech normal, mental status intact, gait, including heel, toe, and tandem walking normal, Romberg negative, muscle tone normal, muscle strength normal, rapid alternating movements normal, finger to nose normal, reflexes normal and symmetric, plantar response downgoing bilaterally SKIN Skin color, texture, turgor normal, no suspicious rashes or lesions to exposed skin HEPATITIS A(1 of 2 - Risk 2-dose series) Never done MENINGOCOCCAL B: Consider based on risk(1 of 4 - Increased Risk Bexsero 2-dose series) Never done HEPATITIS B(1 of 3 - Risk 3-dose series) Never done MMR(2 of 2 - Risk 2-dose series) due on 11/20/2012 SHINGRIX VACCINE(1 of 2) due on 12/18/2012 COVID-19 VACCINE(4 - Booster for Moderna series) due on 01/10/2022 LDL CHOLESTEROL due on 05/03/2022 INFLUENZA(1) due on 06/28/2022 SERUM CREATININE due on 02/13/2023 HEMOGLOBIN/HEMATOCRIT due on 02/13/2023 ANNUAL PCP TEAM CHRONIC DISEASE VISIT due on 05/30/2023 BP CONTROLLED (<130/80) due on 05/30/2023 DIABETES SCREEN due on 02/13/2025 DTAP,TDAP,TD(3 - Tdap) due on 08/29/2025 BONE DENSITY Completed ADVANCE DIRECTIVE DISCUSSION Completed PNEUMOCOCCAL: 65+ Completed ASSESSMENT/PLAN: 1. Concussion without loss of consciousness, subsequent encounter - ICD9: V58.89, 850.0, ICD10: S06.0X0D (primary diagnosis) - no red flag symptoms or exam finding - red flag symptoms discussed in detail, patient verbalizes understanding - discussed complete brain rest and course of concussion recovery, patient verbalizes understanding - may use tylenol for pain as indicated on packaging patient is unable to take NSAID products due to kidney function - follow-up if symptoms fail to improve to ER with red flag symptoms 2. Closed head injury, subsequent encounter - ICD9: V58.89, 959.01, ICD10: S09.90XD - plan as in #1 3. Fall, subsequent encounter - ICD9: V58.89, E888.9, ICD10: W19.XXXD - recommend walker or cane if feeling unsteady on her feet, if persists recommend PT - plan as in #1 Sneha Coles APRN.CHRISTIAN I spent a total of 35 minutes on the date of the service which included preparing to see the patient, [id number] patient care, completing clinical documentation, obtaining and/or reviewing separately obtained history, performing a medically appropriate examination and counseling and educating the patient/family/caregiver. documented in this encounter [facility] 05-11-2022 Miscellaneous Notes Sneha please make sure you see TE note where PA was started. Kita Mendez Ma documented in this encounter [facility] 05-09-2022 Miscellaneous Notes PDMP website checked and validated. All prescriptions have been APPROPRIATELY filled. No suspicious activity was identified. 05/09/2022 by Sneha Coles APRN.CNP documented in this encounter [facility] 05-04-2022 Miscellaneous Notes hydr documented in this encounter [facility] 05-02-2022 History of Present illness Narrative 05/02/2022 Patient presents with: Rx Refills SUBJECTIVE: This is a 81 year old that is here today for Above Complaints. Needing a refill on clonazepam. Has been taking it for years for insomnia. Reports it does help. Son was murdered about 15 years ago and has been on it ever since. Not quite sure what she has tried in the past if anything else for insomnia. Reports she was put on it years ago by a psychiatrist and her former PCP continued it after she stopped seeing psychiatry. She reports she has been out of it for about four days and has not been able to sleep. Tried benadryl over the counter but it didn't help. Admits to a hx of anxiety and depression but feels these are controlled at this time. Not seeing a psychiatrist or counselor at this time. PAST MEDICAL HISTORY Diagnosis Date Atherosclerotic heart disease of [place] coronary artery without angina pectoris Cholelithiases Collagenous colitis 04/18/2012 Dyslipidemia Essential hypertension, benign History of left heart catheterization 10/29/[address] Cardona Hyperlipidemia LDL goal < 100 04/25/2012 Hypokalemia 11/12/2012 Intestinal disaccharidase deficiencies and disaccharide malabsorption Major depressive disorder, single episode, unspecified Mitral valve disorders(424.0) Other chondrocalcinosis, left knee Other ulcerative colitis Ulcerative colitis without complications (HCC) 08/29/2015 Unilateral primary osteoarthritis, left knee ALLERGIES Abilify [Aripiprazole], Bandaid Adhes [Other], Biaxin [Clarithromycin], Darvon [Propoxyphene], Entex La [Phenylephrine-Guaifenesin], Erythromycin, Oxycodone, Pseudoephr [Other], Sulfa (Sulfonamide Antibiotics), and Vicodin [Hydrocodone-Acetaminophen] MEDICATIONS Current Outpatient Medications Medication Sig buPROPion XL (WELLBUTRIN XL) 300 mg 24 hr tablet Take 1 tablet by mouth every morning. quinapril (ACCUPRIL) 20 mg tablet TAKE 1 TABLET BY MOUTH ONCE DAILY. clonazePAM (KLONOPIN) 0.5 mg tablet Take 1 tablet by mouth at bedtime as needed for up to 90 days. methotrexate 2.5 mg tablet take 4 tablets by mouth every week FOLIC ACID ORAL Take by mouth. potassium chloride (K-TAB) 10 mEq tablet Take 1 tablet by mouth once daily. omeprazole (PRILOSEC) 20 mg capsule Take 1 capsule by mouth twice daily. sertraline (ZOLOFT) 100 mg tablet Take 1 tablet by mouth once daily. simvastatin (ZOCOR) 20 mg tablet Take 1 tablet by mouth daily at bedtime. ondansetron (ZOFRAN) 4 mg tablet Take 1 tablet by mouth every 12 hours as needed for nausea/vomiting. gabapentin (NEURONTIN) 100 mg capsule Take 100 mg by mouth twice daily. Dr Mcdermott amLODIPine (NORVASC) 5 mg tablet Take 1 tablet by mouth once daily. carvedilol (COREG) 3.125 mg tablet 3.125 mg twice daily with meals. hydroCHLOROthiazide (HYDRODIURIL, ESIDRIX) 12.5 mg tablet Take 12.5 mg by mouth every other day. Every other day No current facility-administered medications for this visit. Medications and allergies reviewed by this provider. SOCIAL HISTORY Social History Tobacco Use Smoking status: Former Smoker Smokeless tobacco: Never Used Tobacco comment: quit 15 years ago Vaping Use Vaping Use: Not on file Substance Use Topics Alcohol use: Yes Comment: RARELY Drug use: No REVIEW OF SYSTEMS All other reviewed and negative other than HPI. OBJECTIVE: BP 136/70 Pulse 71 Resp 20 Wt 68.3 kg (150 lb 9.6 oz) SpO2 99% BMI 22.90 kg/m . Vital signs reviewed by this provider. APPEARANCE Well appearing, alert, in no acute distress, well-hydrated, well nourished. EYES conjunctiva and sclera normal. HEART RRR with normal S1 and S2, no murmurs, no gallops, no JVD appreciated LUNG clear to auscultation. No wheezes, rhonchi, or rales SKIN Skin color, texture, turgor normal, no suspicious rashes or lesions to exposed skin HEPATITIS A(1 of 2 - Risk 2-dose series) Never done MENINGOCOCCAL B: Consider based on risk(1 of 4 - Increased Risk Bexsero 2-dose series) Never done HEPATITIS B(1 of 3 - Risk 3-dose series) Never done MMR(2 of 2 - Risk 2-dose series) due on 11/20/2012 SHINGRIX VACCINE(1 of 2) due on 12/18/2012 COVID-19 VACCINE(4 - Booster for Moderna series) due on 01/10/2022 LDL CHOLESTEROL due on 05/03/2022 INFLUENZA(1) due on 06/28/2022 BP CONTROLLED (<130/80) due on 01/25/2023 SERUM CREATININE due on 02/13/2023 HEMOGLOBIN/HEMATOCRIT due on 02/13/2023 ANNUAL PCP TEAM CHRONIC DISEASE VISIT due on 05/02/2023 DIABETES SCREEN due on 02/13/2025 DTAP,TDAP,TD(3 - Tdap) due on 08/29/2025 BONE DENSITY Completed ADVANCE DIRECTIVE DISCUSSION Completed PNEUMOCOCCAL: 65+ Completed ASSESSMENT/PLAN: 1. Chronic insomnia - ICD9: 780.52, ICD10: F51.04 (primary diagnosis) - discussed with patient this medication can become addictive, verbalizes understanding - she is willing to try melatonin and trazodone if melatonin does not help - she is agreeable to seeing a counselor as well. She would like to see if she can see a lady at [facility] she is familiar with - TRAZODONE 50 MG TABLET- common side effects discussed, verbalizes understanding - CLONAZEPAM 0.5 MG TABLET - will given her 30 day prescription for clonazepam since she has been on this for some time but I would like to see if we can switch her to another medication that is not a controlled substance - if she needs to remain on this will need to do a urine tox screen and have her sign a controlled substance agreement - she has follow-up appointment to establish care with me in a month - she will update me next week about the melatonin and trazodone if she needs it 2. Chronic prescription benzodiazepine use - ICD9: V58.69, ICD10: Z79.899 -plan as in #1 - TRAZODONE 50 MG TABLET - CLONAZEPAM 0.5 MG TABLET Sneha Coles APRN.CAN STACKER Prescription instructions reviewed with patient as applicable. Patient advised if symptoms do not improve or if symptoms worsen sooner, to contact their primary care physician. Potential red flag symptoms discussed with the patient. Reviewed appropriate action plan to take if red flag symptoms occur. Patient agreeable to treatment plan. documented in this encounter [facility] 04-20-2022 Miscellaneous Notes The following approved medication requests have been transmitted electronically. Pending Prescriptions Disp Refills BUPROPION XL 300 MG 24 HR TAB 90 tablet 1 Sig: Take 1 tablet by mouth every morning. SALEEM: No Patti García APRN.CNP Patient has been identified by name and date of : Yes Pending Prescriptions Disp Refills BUPROPION XL 300 MG 24 HR TAB 90 tablet 1 Sig: Take 1 tablet by mouth every morning. SALEEM: No SHARIFA-02/13/22 Labs-02/13/22Aug-06/25/22 RX INSTRUCTIONS: Patient requesting a call when RX is approved and sent to the pharmacy. Please call patient at: [phone] NOTE: patient is completely out of this medication and will need by tomorrow [place] [facility] [place] [facility] 04-05-2022 Miscellaneous Notes The following approved medication requests have been transmitted electronically. Pending Prescriptions Disp Refills QUINAPRIL 20 MG TABLET 90 tablet 3 Sig: TAKE 1 TABLET BY MOUTH ONCE DAILY. SALEEM: Yes Adebayo Moncada APRN.CNP Patient phones requesting refills as follows: Pending Prescriptions Disp Refills QUINAPRIL 20 MG TABLET 90 tablet 3 Sig: TAKE 1 TABLET BY MOUTH ONCE DAILY. SALEEM: Yes SHARIFA-02/13/22 Labs-02/13/22Aug-06/25/22 med filled 04/11/21 Please review and advise. Ailyn Root LPN documented in this encounter [facility] 03-27-2022 Miscellaneous Notes The following approved medication requests have been transmitted electronically. Pending Prescriptions Disp Refills CLONAZEPAM 0.5 MG TABLET 4 tablet 0 Sig: Take 1 tablet by mouth at bedtime as needed for up to 90 days. TIMUR Class: C-IV SALEEM: No Narayan Gilbert APRN.SHELLI GONZALES Pt had requested a refill for clonazepam on 03/20/22 but has not received it yet. Pt states she has been out of this medication for 2-3 days & is asking of pcp will send in an rx for 3 or 4 tabs to local pharmacy while she is waiting for mail order to arrive? Pending. Morenita Van LPN documented in this encounter [facility] 03-27-2022 Miscellaneous Notes error documented in this encounter [facility] 03-25-2022 Instructions Glory Cooney APRN.CHRISTIAN - 03/25/2022 2:41 PM EDT Wound Care - Keep the area clean and dry -Clean with soap and water . Apply mupirocin ointment 2 - 3 times a day. -Tylenol or Ibuprofen for discomfort -Call your primary care physician's office for a follow up appointment. documented in this encounter [facility] 03-25-2022 History of Present illness Narrative Images from the original note were not included. Subjective The history is provided by the patient. No language and literature division chair was used. HPI Dina Hester is a 81 year old female who presents today for CC of blister on 5th toe of right foot that will not heal. This started a week ago. She has used no treatment or medications. She denies any streaking purulent drainage or fever There were no vitals taken for this visit. Social History Tobacco Use Smoking status: Former Smoker Smokeless tobacco: Never Used Tobacco comment: quit 15 years ago Vaping Use Vaping Use: Not on file Substance Use Topics Alcohol use: Yes Comment: RARELY Drug use: No PAST MEDICAL HISTORY Diagnosis Date Atherosclerotic heart disease of [place] coronary artery without angina pectoris Cholelithiases Collagenous colitis 04/18/2012 Dyslipidemia Essential hypertension, benign History of left heart catheterization 10/29/[address] Cardona Hyperlipidemia LDL goal < 100 04/25/2012 Hypokalemia 11/12/2012 Intestinal disaccharidase deficiencies and disaccharide malabsorption Major depressive disorder, single episode, unspecified Mitral valve disorders(424.0) Other chondrocalcinosis, left knee Other ulcerative colitis Ulcerative colitis without complications (HCC) 08/29/2015 Unilateral primary osteoarthritis, left knee I have confirmed and edited as necessary, the [facility] Review of Systems Constitutional: Negative for chills and fever. Musculoskeletal: Negative for joint pain and myalgias. Skin: Negative for itching and rash. Redness on toe All other systems reviewed and are negative. Objective Physical Exam Vitals and nursing note reviewed. Pulmonary: Effort: Pulmonary effort is normal. Skin: General: Skin is warm and dry. Findings: Erythema present. Rash is not pustular. Neurological: Mental Status: She is alert and oriented to person, place, and time. Psychiatric: Mood and Affect: Affect normal. ASSESSMENT/PLAN: 1. Redness of skin - ICD9: 695.9, ICD10: L53.9 Possible normal healing, infection Wound care discussed see patient instructions Follow up with Podiatry prn Diagnosis and treatment plan were discussed and questions were answered to the patient's satisfaction. Pt acknowledged understanding of concepts and follow up plan. Specific signs and symptoms that would indicate the need for higher level of care were discussed in detail warranting prompt ER evaluation. Glory Cooney APRN.CHRISTIAN Cooney APRN.CAN STACKER documented in this encounter [facility] 03-21-2022 Miscellaneous Notes PDMP website checked and validated 03/21/2022 All prescriptions have been APPROPRIATELY filled. No suspicious activity was identified. The following approved medication requests have been transmitted electronically. Pending Prescriptions Disp Refills CLONAZEPAM 0.5 MG TABLET 30 tablet 0 Sig: TAKE 1 TABLET BY MOUTH AT BEDTIME NEEDED FOR UP TO 90 DAYS. TIMUR Class: C-IV SALEEM: Yes Narayan Gilbert APRN.SHELLI GONZALES Patient phones requesting refills as follows: Pending Prescriptions Disp Refills CLONAZEPAM 0.5 MG TABLET 30 tablet Sig: TAKE 1 TABLET BY MOUTH AT BEDTIME NEEDED FOR UP TO 90 DAYS. TIMUR Class: C-IV SALEEM: Yes SHARIFA-02/13/22 Labs-02/13/22 NOV-06/25/22 Please review and advise. Ailyn Root LPN documented in this encounter [facility] 02-13-2022 Instructions Narayan Gilbert APRN.SHELLI GONZALES - 02/13/2022 11:09 AM EDT Follow up if symptoms worsen. Prednisone x 5 days Check lab work today - clinic to call or send results via SPARQCode. You may use Tylenol or Motrin for any muscle aches, pains or fever as needed. Patient is instructed to remain on liquid and bland diet to include, toast, crackers, chicken broth (encouraged to increase oral fluids in small, frequent amounts and follow dietary guidance as noted). Avoid sugary drinks, recommend yissel jessica, Seven -up or 1/2 water and 1/2 gator-aid mix. Patient should return to clinic or seek care in the emergency room for worsening symptoms or the following: Fever over 101 that does not reduce with antipyretics (Tylenol or Motrin), abdominal pain that changes in severity, location, or quality, inability to tolerate oral fluids, persistent nausea, vomiting and/or diarrhea, blood in emesis or stools, shaking chills or rigors, or any other concerns of worsening condition. Healthy Habits: Recommend regular physical activity, nutrition and healthy eating habits. Consume a variety of foods every day focusing on fruits, vegetables and lean meats). Eat foods low in fat, saturated fat and cholesterol. Eat a limited amount of salt and sodium. Drink adequate amounts of water and limit sugary drinks. Exercise portion control in meal selection. Establish a mindset of a wellness approach to health. Thank you for allowing me to provide your care today. I look forward to seeing you again and maintaining your health. Narayan Gilbert APRN.SHELLI GONZALES documented in this encounter [facility] 02-13-2022 History of Present illness Narrative Chief Complaint UC flare/adb pain and diarrhea. GIULIANA Hester is a 81 year old female who presents here today for 4 days of cough and chest congestion. This is an established patient of Dr. Narayan Gilbert APRN.SHELLI GONZALES. Denies any recent urgent care visits, ER visits or hospitalizations. Specialty providers: Cardiology: and [facility] Rheumatology: Dr. Mcdermott Past medical history: CAD -heart cath x2, hyperlipidemia, hypertension, hypokalemia, major depression, mitral valve disorder, ulcerative colitis, chronic insomnia, chronic benzodiazepine use, Anxiety, osteoarthritis of the knees, hypokalemia, SLE Abd pain and diarrhea: Having ulcerative colitis flare began Saturday. Having diarrhea, abdominal discomfort. Is asking for prednisone rx. Did have an episode of vomiting. That has subsided. States in the past prednisone has improved her symptoms. Has multiple allergies to antibiotics. Was recently on doxycycline but that upset her stomach and so she stopped taking it. Denies fever or chills. Denies blood in stool. Denies black tarry stools. SLE: Previous patient of Dr. Mcnair. He recently retired. Recently referred to Rheum and diagnosed with SLE. Started on Plaquenil, but could not tolerate. Discontinued this and given prednisone and gabapentin. Otherwise she is doing well. Has a history of chronic insomnia, anxiety depression. Has been on Klonopin 0.5 mg for insomnia. Past medical history, appointments, medications, allergies reviewed 12/21/2021 Previous Medical History PAST MEDICAL HISTORY Diagnosis Date Atherosclerotic heart disease of [place] coronary artery without angina pectoris Cholelithiases Collagenous colitis 04/18/2012 Dyslipidemia Essential hypertension, benign History of left heart catheterization 10/29/[address] Cardona Hyperlipidemia LDL goal < 100 04/25/2012 Hypokalemia 11/12/2012 Intestinal disaccharidase deficiencies and disaccharide malabsorption Major depressive disorder, single episode, unspecified Mitral valve disorders(424.0) Other chondrocalcinosis, left knee Other ulcerative colitis Ulcerative colitis without complications (HCC) 08/29/2015 Unilateral primary osteoarthritis, left knee Previous Surgical History PAST SURGICAL HISTORY Procedure Laterality Date ARTHROSCOPY KNEE DIAGNOSTIC W/WO SYNOVIAL BX SPX Left 03/07/2018 [facility]-Dr. Viveros ARTHRP KNE CONDYLE&PLATU MEDIAL&LAT COMPARTMENTS Right 07/14/2020 COLONOSCOPY FLX DX W/COLLJ SPEC WHEN PFRMD Colonoscopy, Several COLONOSCOPY FLX DX W/COLLJ SPEC WHEN PFRMD 04/18/2011 Colonoscopy COLONOSCOPY FLX DX W/COLLJ SPEC WHEN PFRMD 05/17/2016 Colonoscopy ESOPHAGOGASTRODUODENOSCOPY TRANSORAL DIAGNOSTIC 11/07/2016 EGD LAPAROSCOPY SURG CHOLECYSTECTOMY 10/17/2011 Cholecystectomy, lap LIG/TRNSXJ FLP TUBE ABDL/VAG APPR UNI/BI Tubal ligation PAST SURGICAL HISTORY OF Right knee surgery RMVL LENS MATERIAL PHACOFRAGMENTATION ASPIR 08/2009 Cataract Extraction, right eye TONSILLECTOMY & ADENOIDECTOMY <AGE 14 TOTAL ABDOMINAL HYSTERECT W/WO RMVL TUBE OVARY Hysterectomy, GENE Family History FAMILY HISTORY Problem Relation Age of Onset Coronary Artery Disease Mother Coronary Artery Disease Father Hypertension Mother Hypertension Father Diabetes Other Mother's side of family Arthritis Father Alcohol/Drug Daughter Patient Allergies ALLERGIES Allergen Reactions Abilify [Aripiprazo* Mental Status Change Bandaid Adhes [Othe* Biaxin [Clarithromy* Darvon [Propoxyphen* Entex La [Phenyleph* Erythromycin Oxycodone Intolerance Mental Status Changes-Hallucinating. Pseudoephr [Other] Sulfa (Sulfonamide * Vicodin [Hydrocodon* itching Current Medications Current Outpatient Medications on File Prior to Visit Medication Sig quinapril (ACCUPRIL) 20 mg tablet Take 1 tablet by mouth once daily. omeprazole (PRILOSEC) 20 mg capsule Take 1 capsule by mouth twice daily. clonazePAM (KLONOPIN) 0.5 mg tablet Take 1 tablet by mouth at bedtime as needed for Anxiety for up to 30 days. clonazePAM (KLONOPIN) 0.5 mg tablet Take 1 tablet by mouth at bedtime as needed for up to 30 days. Do not start before March 11, 2021. sertraline (ZOLOFT) 100 mg tablet Take 1 tablet by mouth once daily. ondansetron (ZOFRAN) 4 mg tablet Take 1 tablet by mouth every 8 hours as needed for Nausea/Vomiting. buPROPion XL (WELLBUTRIN XL) 300 mg 24 hr tablet Take 1 tablet by mouth every morning. buPROPion XL (WELLBUTRIN XL) 300 mg 24 hr tablet Take 1 tablet by mouth every morning. buPROPion XL (WELLBUTRIN XL) 300 mg 24 hr tablet Take 1 tablet by mouth once daily. simvastatin (ZOCOR) 20 mg tablet Take 1 tablet by mouth daily at bedtime. amLODIPine (NORVASC) 5 mg tablet Take 1 tablet by mouth once daily. carvedilol (COREG) 3.125 mg tablet 3.125 mg twice daily with meals. hydroCHLOROthiazide (HYDRODIURIL, ESIDRIX) 12.5 mg tablet Take 12.5 mg by mouth once daily. aspirin(ASPIR-81 81 MG TAB) Take by mouth. Taking two tablets daily IBUPROFEN 200 MG TAB Take 1-2 tablet's) every four(4) to six(6) hours as needed for pain. No current facility-administered medications on file prior to visit. Social History Social History Tobacco Use Smoking status: Former Smoker Smokeless tobacco: Never Used Tobacco comment: quit 15 years ago Vaping Use Vaping Use: Not on file Substance Use Topics Alcohol use: Yes Comment: RARELY Drug use: No Review of Symptoms GENERAL: No weight loss. Malaise HEENT: No difficulty swallowing. NECK: Negative for lumps or swollen nodes RESPIRATORY: Negative for dyspnea or shortness of breath CARDIOVASCULAR: Negative for chest pain MUSCULOSKELETAL: chronic knee and shoulder pain EXAM: BP 132/70 Pulse 82 Temp 36.7 C (98 F) Resp 14 Wt 66.2 kg (146 lb) SpO2 100% BMI 22.20 kg/m General Appearance: Chronically ill appearing, alert, in no acute distress, well-hydrated, well nourished. Skin: Skin color, texture, turgor normal Head: Normocephalic, no masses Eyes: Anicteric sclera. No discharge Oropharynx: Nonreddened. Gums normal. Neck: Supple, no adenopathy; thyroid symmetric, normal size, no bruits. Lymph Nodes: No cervical lymphadenopathy, No supraclavicular lymphadenopathy Lungs: No wheezing or rales. Rales in the bases. Heart: RRR without murmur, gallop, or rubs. No ectopy. Normal S1 and S2. GI: Soft and round. Nontender in epigastric region. No upper or lower quadrant abdominal tenderness. No rebound tenderness. No CVA tenderness. Negative Sexton sign . No organomegaly. Extremities: No deformities, edema, skin discoloration. Good capillary refill. MSK: FROM of upper and lower extremities. No joint swelling or redness. Peripheral Pulses: Normal - radial and carotid 2+ Psych: Attitude: Cooperative, easily engaged in conversation Appearance: Normal, hygiene and grooming appropriate Affect: Euthymic (normal mood) Mental status: Alert, attentive. Speech is clear and fluent with good repetition, comprehension Gait/Stance: Posture is normal. Gait is steady with normal steps Health Maintenance List HEPATITIS C SCREENING Never done ADVANCE DIRECTIVE DISCUSSION Never done SHINGRIX VACCINE(2 of 3) due on 12/18/2012 COLORECTAL CANCER SCREENING due on 05/17/2019 LDL CHOLESTEROL due on 01/07/2021 SERUM CREATININE due on 08/26/2021 HEMOGLOBIN/HEMATOCRIT due on 08/26/2021 DEPRESSION SCREENING due on 02/01/2022 ANNUAL PCP TEAM CHRONIC DISEASE VISIT due on 04/25/2022 BP CONTROLLED (<130/80) due on 04/25/2022 DIABETES SCREEN due on 08/26/2023 DTAP,TDAP,TD(3 - Tdap) due on 08/29/2025 BONE DENSITY Completed INFLUENZA Completed PNEUMOVAX AGE 65 AND OVER WITH 5YR LOOKBACK Completed COVID-19 VACCINE Completed MENINGOCOCCAL CONJUGATE Aged Out Data reviewed Last 5 Encounter BP Readings: Date: BP: 02/13/2022 132/70 01/25/2022 120/72 12/21/2021 118/80 11/15/2021 120/72 09/13/2021 110/72 BMI Readings from Last 5 Encounters: 02/13/22 : 22.20 kg/m 01/25/22 : 22.50 kg/m 12/21/21 : 22.11 kg/m 11/15/21 : 22.35 kg/m 09/13/21 : 21.96 kg/m Last 5 Encounter Wt Readings: Date: Wt: 02/13/2022 66.2 kg (146 lb) 01/25/2022 67.1 kg (148 lb) 12/21/2021 66 kg (145 lb 6.4 oz) 11/15/2021 66.7 kg (147 lb) 09/13/2021 65.5 kg (144 lb 6.4 oz) Medication and allergy list reviewed, reconciled and updated 02/13/2022 ASSESSMENT/PLAN: 1. Generalized abdominal pain - ICD9: 789.07, ICD10: R10.84 (primary diagnosis) MDM: Clinically stable. No fever or chills. No severe abdominal pain. Frequent episodes of diarrhea. No blood in stool. Able to tolerate oral fluids and bland diet. Recommended antibiotics and patient declined at this time. Preferred just 5 days of prednisone as she stated this seemed to work for her in the past. Shared decision made to proceed with 5 days of prednisone twice a day. Plan: Abd xray Prednisone x 5 days Check lab work today see orders - clinic to call or send results via SPARQCode. You may use Tylenol or Motrin for any muscle aches, pains or fever as needed. Patient is instructed to remain on liquid and bland diet to include, toast, crackers, chicken broth (encouraged to increase oral fluids in small, frequent amounts and follow dietary guidance as noted). Avoid sugary drinks, recommend yissel jessica, Seven -up or 1/2 water and 1/2 gator-aid mix. Patient should return to clinic or seek care in the emergency room for worsening symptoms or the following: Fever over 101 that does not reduce with antipyretics (Tylenol or Motrin), abdominal pain that changes in severity, location, or quality, inability to tolerate oral fluids, persistent nausea, vomiting and/or diarrhea, blood in emesis or stools, shaking chills or rigors, or any other concerns of worsening condition. - PREDNISONE 20 MG TABLET twice daily x5 days - COMP METABOLIC PANEL - CBC + DIFF - SED RATE WESTERGREN - C-REACTIVE PROTEIN (CRP) - XR ABDOMEN 1V SUPINE 2. Diarrhea, unspecified type - ICD9: 787.91, ICD10: R19.7 Plan as above - XR ABDOMEN 1V SUPINE 3. Depression, major, recurrent, moderate (HCC) - ICD9: 296.32, ICD10: F33.1 Clinically stable Continue current Rx medications. 4. 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 Stage 3a chronic kidney disease (HCC) - ICD9: 585.3, ICD10: N18.31 Clinically stable Continue current Rx medications. Reviewed Labs from Oct 2021 at [facility]: Potassium: 4.0 GFR = 50 Creatinine: 1.1 6. Essential hypertension, benign - ICD9: 401.1, ICD10: I10 - good control - Continue current medication(s) - Encouraged dietary sodium restriction/DASH diet - Recommended regular aerobic exercise. - Recommend home blood pressure monitoring - Goal of BP <130/80 - Recommended no refined sugar, low refined starch, healthy oil intake (olive oil), healthy protein (fish) along the lines of the Mediterranean diet. Narayan Gilbert APRN.SHELLI GONZALES This note was completed with [employer] dictation software. Note was reviewed for accuracy. There may be minor misspellings or grammar miscues with [employer] Dictation. I spent a total of 30 minutes on the date of the service which included preparing to see the patient, [id number] patient care, completing clinical documentation, performing a medically appropriate examination, counseling and educating the patient/family/caregiver and ordering medications, tests, or procedures. [place] [phone] This note was copied from previous note and exam dated 01/25/22 . Author is Narayan Gilbert APRN.SHELLI GONZALES note reviewed and changes have been made or updates noted in the copy & paste portion of an encounter. documented in this encounter [facility] 01-25-2022 Instructions Narayan Gilbert APRN.SHELLI GONZALES - 01/25/2022 10:43 AM EDT Follow up if symptoms worsen Complete chest x-ray today. Clinic call with results Prescribe doxycycline as your antibiotic Robitussin with codeine for your cough Return to the clinic or seek care at [facility] for any worsening signs or symptoms: such as fevers, chills, worsening pain or cough. For severe symptoms seek care at the closest ER. Plan of care, medicaiton side effects and management reviewed with patient. Healthy Habits: Recommend regular physical activity, nutrition and healthy eating habits. Consume a variety of foods every day focusing on fruits, vegetables and lean meats). Eat foods low in fat, saturated fat and cholesterol. Eat a limited amount of salt and sodium. Drink adequate amounts of water and limit sugary drinks. Exercise portion control in meal selection. Establish a mindset of a wellness approach to health. Thank you for allowing me to provide your care today. I look forward to seeing you again and maintaining your health. Narayan Gilbert APRN.SHELLI GONZALES documented in this encounter [facility] 01-25-2022 History of Present illness Narrative Chief Complaint follow up exam HPI Dina Hester is a 81 year old female who presents here today for 4 days of cough and chest congestion. This is an established patient of Dr. Narayan Gilbert APRN.SHELLI GONZALES. Denies any recent urgent care visits, ER visits or hospitalizations. Specialty providers: Cardiology: and [facility] Rheumatology: Dr. Mcdermott Past medical history: CAD -heart cath x2, hyperlipidemia, hypertension, hypokalemia, major depression, mitral valve disorder, ulcerative colitis, chronic insomnia, chronic benzodiazepine use, Anxiety, osteoarthritis of the knees, hypokalemia, SLE Cough: 4 days of cough and chest congestion. Cough is constant. Semiproductive. States low-grade fever on Saturday. No fever the past 2 days. Cough causes burning sensation in her chest. No chest pain. Denies shortness of breath. No nausea or vomiting. Grandson is also sick with similar symptoms. She contacted my office earlier this week and was instructed to take [id number] cough medicine. Did not take [id number] medications for her symptoms or cough. She scheduled appointment last night for today. Overall just not feeling well. Taking prednisone dosing from her project assistant that she had on hand. Mild improvement with this SLE: Previous patient of Dr. Mcnair. He recently retired. Recently referred to Rheum and diagnosed with SLE. Started on Plaquenil, but could not tolerate. Discontinued this and given prednisone and gabapentin. Otherwise she is doing well. Has a history of chronic insomnia, anxiety depression. Has been on Klonopin 0.5 mg for insomnia. Past medical history, appointments, medications, allergies reviewed 12/21/2021 Previous Medical History PAST MEDICAL HISTORY Diagnosis Date Atherosclerotic heart disease of [place] coronary artery without angina pectoris Cholelithiases Collagenous colitis 04/18/2012 Dyslipidemia Essential hypertension, benign History of left heart catheterization 10/29/[address] Cardona Hyperlipidemia LDL goal < 100 04/25/2012 Hypokalemia 11/12/2012 Intestinal disaccharidase deficiencies and disaccharide malabsorption Major depressive disorder, single episode, unspecified Mitral valve disorders(424.0) Other chondrocalcinosis, left knee Other ulcerative colitis Ulcerative colitis without complications (HCC) 08/29/2015 Unilateral primary osteoarthritis, left knee Previous Surgical History PAST SURGICAL HISTORY Procedure Laterality Date ARTHROSCOPY KNEE DIAGNOSTIC W/WO SYNOVIAL BX SPX Left 03/07/2018 [facility]-Dr. Viveros ARTHRP KNE CONDYLE&PLATU MEDIAL&LAT COMPARTMENTS Right 07/14/2020 COLONOSCOPY FLX DX W/COLLJ SPEC WHEN PFRMD Colonoscopy, Several COLONOSCOPY FLX DX W/COLLJ SPEC WHEN PFRMD 04/18/2011 Colonoscopy COLONOSCOPY FLX DX W/COLLJ SPEC WHEN PFRMD 05/17/2016 Colonoscopy ESOPHAGOGASTRODUODENOSCOPY TRANSORAL DIAGNOSTIC 11/07/2016 EGD LAPAROSCOPY SURG CHOLECYSTECTOMY 10/17/2011 Cholecystectomy, lap LIG/TRNSXJ FLP TUBE ABDL/VAG APPR UNI/BI Tubal ligation PAST SURGICAL HISTORY OF Right knee surgery RMVL LENS MATERIAL PHACOFRAGMENTATION ASPIR 08/2009 Cataract Extraction, right eye TONSILLECTOMY & ADENOIDECTOMY <AGE 14 TOTAL ABDOMINAL HYSTERECT W/WO RMVL TUBE OVARY Hysterectomy, GENE Family History FAMILY HISTORY Problem Relation Age of Onset Coronary Artery Disease Mother Coronary Artery Disease Father Hypertension Mother Hypertension Father Diabetes Other Mother's side of family Arthritis Father Alcohol/Drug Daughter Patient Allergies ALLERGIES Allergen Reactions Abilify [Aripiprazo* Mental Status Change Bandaid Adhes [Othe* Biaxin [Clarithromy* Darvon [Propoxyphen* Entex La [Phenyleph* Erythromycin Oxycodone Intolerance Mental Status Changes-Hallucinating. Pseudoephr [Other] Sulfa (Sulfonamide * Vicodin [Hydrocodon* itching Current Medications Current Outpatient Medications on File Prior to Visit Medication Sig quinapril (ACCUPRIL) 20 mg tablet Take 1 tablet by mouth once daily. omeprazole (PRILOSEC) 20 mg capsule Take 1 capsule by mouth twice daily. clonazePAM (KLONOPIN) 0.5 mg tablet Take 1 tablet by mouth at bedtime as needed for Anxiety for up to 30 days. clonazePAM (KLONOPIN) 0.5 mg tablet Take 1 tablet by mouth at bedtime as needed for up to 30 days. Do not start before March 11, 2021. sertraline (ZOLOFT) 100 mg tablet Take 1 tablet by mouth once daily. ondansetron (ZOFRAN) 4 mg tablet Take 1 tablet by mouth every 8 hours as needed for Nausea/Vomiting. buPROPion XL (WELLBUTRIN XL) 300 mg 24 hr tablet Take 1 tablet by mouth every morning. buPROPion XL (WELLBUTRIN XL) 300 mg 24 hr tablet Take 1 tablet by mouth every morning. buPROPion XL (WELLBUTRIN XL) 300 mg 24 hr tablet Take 1 tablet by mouth once daily. simvastatin (ZOCOR) 20 mg tablet Take 1 tablet by mouth daily at bedtime. amLODIPine (NORVASC) 5 mg tablet Take 1 tablet by mouth once daily. carvedilol (COREG) 3.125 mg tablet 3.125 mg twice daily with meals. hydroCHLOROthiazide (HYDRODIURIL, ESIDRIX) 12.5 mg tablet Take 12.5 mg by mouth once daily. aspirin(ASPIR-81 81 MG TAB) Take by mouth. Taking two tablets daily IBUPROFEN 200 MG TAB Take 1-2 tablet's) every four(4) to six(6) hours as needed for pain. No current facility-administered medications on file prior to visit. Social History Social History Tobacco Use Smoking status: Former Smoker Smokeless tobacco: Never Used Tobacco comment: quit 15 years ago Vaping Use Vaping Use: Not on file Substance Use Topics Alcohol use: Yes Comment: RARELY Drug use: No Review of Symptoms GENERAL: No weight loss. Malaise HEENT: Negative for frequent headaches No blurry vision or visual changes No earaches or sore throat NECK: Negative for lumps or swollen nodes RESPIRATORY: Negative for wheezing, dyspnea or shortness of breath CARDIOVASCULAR: Negative for chest pain MUSCULOSKELETAL: chronic knee and shoulder pain EXAM: BP 120/72 Pulse 71 Resp 14 Wt 67.1 kg (148 lb) SpO2 100% BMI 22.50 kg/m General Appearance: Chronically ill appearing, alert, in no acute distress, well-hydrated, well nourished. Skin: Skin color, texture, turgor normal Head: Normocephalic, no masses Eyes: Anicteric sclera. No discharge Ears: Cerumen noted in the right ear removed with curette without difficulty. TMs clear with adequate light reflex. No canal redness. Nares: Clear drainage. Oropharynx: Nonreddened. Gums normal. Neck: Supple, no adenopathy; thyroid symmetric, normal size, no bruits. Lymph Nodes: No cervical lymphadenopathy, No supraclavicular lymphadenopathy Lungs: No wheezing or rales. Rales in the bases. Heart: RRR without murmur, gallop, or rubs. No ectopy. Normal S1 and S2. Extremities: No deformities, edema, skin discoloration. Good capillary refill. MSK: FROM of upper and lower extremities. No joint swelling or redness. Peripheral Pulses: Normal - radial and carotid 2+ Psych: Attitude: Cooperative, easily engaged in conversation Appearance: Normal, hygiene and grooming appropriate Affect: Euthymic (normal mood) Mental status: Alert, attentive. Speech is clear and fluent with good repetition, comprehension Gait/Stance: Posture is normal. Gait is steady with normal steps Health Maintenance List HEPATITIS C SCREENING Never done ADVANCE DIRECTIVE DISCUSSION Never done SHINGRIX VACCINE(2 of 3) due on 12/18/2012 COLORECTAL CANCER SCREENING due on 05/17/2019 LDL CHOLESTEROL due on 01/07/2021 SERUM CREATININE due on 08/26/2021 HEMOGLOBIN/HEMATOCRIT due on 08/26/2021 DEPRESSION SCREENING due on 02/01/2022 ANNUAL PCP TEAM CHRONIC DISEASE VISIT due on 04/25/2022 BP CONTROLLED (<130/80) due on 04/25/2022 DIABETES SCREEN due on 08/26/2023 DTAP,TDAP,TD(3 - Tdap) due on 08/29/2025 BONE DENSITY Completed INFLUENZA Completed PNEUMOVAX AGE 65 AND OVER WITH 5YR LOOKBACK Completed COVID-19 VACCINE Completed MENINGOCOCCAL CONJUGATE Aged Out Data reviewed Last 5 Encounter BP Readings: Date: BP: 01/25/2022 120/72 12/21/2021 118/80 11/15/2021 120/72 09/13/2021 110/72 04/25/2021 110/68 BMI Readings from Last 5 Encounters: 01/25/22 : 22.50 kg/m 12/21/21 : 22.11 kg/m 11/15/21 : 22.35 kg/m 09/13/21 : 21.96 kg/m 04/25/21 : 22.20 kg/m Last 5 Encounter Wt Readings: Date: Wt: 01/25/2022 67.1 kg (148 lb) 12/21/2021 66 kg (145 lb 6.4 oz) 11/15/2021 66.7 kg (147 lb) 09/13/2021 65.5 kg (144 lb 6.4 oz) 04/25/2021 66.2 kg (146 lb) Medication and allergy list reviewed, reconciled and updated 01/25/2022 ASSESSMENT/PLAN: 1. Upper respiratory infection with cough and congestion - ICD9: 465.9, ICD10: J06.9 (primary diagnosis) - MDM: Clinically stable. Afebrile today. Pulse ox 100%. No acute distress. She has been taking prednisone for the past several days that she had from her project assistant. Likely this is helped improve some of her symptoms. Coarse breath sounds in the bases. - Discussed viral etiology vs pneumonia. Provided rationale for treatment. Plan: Doxycycline, chest x-ray and Robitussin with codeine - Symptomatic treatment with prn analgesia - Supportive care with fluids and rest - Follow up in 5 days if symptoms persist or sooner if worsening of symptoms - DOXYCYCLINE HYCLATE 100 MG TABLET - XR CHEST 2V FRONTAL/LAT - CODEINE 10 MG-GUAIFENESIN 100 MG/5 ML ORAL LIQUID 2. Depression, major, recurrent, moderate (HCC) - ICD9: 296.32, ICD10: F33.1 Clinically stable Continue current Rx medications. 3. Ulcerative colitis without complications, unspecified location (HCC) - ICD9: 556.9, ICD10: K51.90 Clinically stable Continue current Rx medications. 4. Stage 3a chronic kidney disease (HCC) - ICD9: 585.3, ICD10: N18.31 Clinically stable Continue current Rx medications. Reviewed Labs from Oct 2021 at [facility]: Potassium: 4.0 GFR = 50 Creatinine: 1.1 5. Essential hypertension, benign - ICD9: 401.1, ICD10: I10 - good control - Continue current medication(s) - Encouraged dietary sodium restriction/DASH diet - Recommended regular aerobic exercise. - Recommend home blood pressure monitoring - Goal of BP <130/80 - Recommended no refined sugar, low refined starch, healthy oil intake (olive oil), healthy protein (fish) along the lines of the Mediterranean diet. Narayan Gilbert APRN.SHELLI GONZALES This note was completed with [employer] dictation software. Note was reviewed for accuracy. There may be minor misspellings or grammar miscues with [employer] Dictation. I spent a total of 20 minutes on the date of the service which included preparing to see the patient, [id number] patient care, completing clinical documentation, performing a medically appropriate examination, counseling and educating the patient/family/caregiver and ordering medications, tests, or procedures. [place] [id number] This note was copied from previous note and exam dated 12/21/21 . Author is Narayan Gilbert APRN.SHELLI GONZALES note reviewed and changes have been made or updates noted in the copy & paste portion of an encounter. documented in this encounter [facility] documented as of this encounter (statuses as of 01/25/2022) [facility]01-16-2013 History of Past illness Narrative* Problem Noted Date Resolved Date Hypokalemia 11/12/2012 08/29/2015 Actinic keratosis 10/04/2006 09/17/2014 Major depressive disorder, single episode, unspe cified 08/27/2017 documented as of this encounter (statuses as of 02/14/2022) [address]16-2013 History of Past illness Narrative* Problem Noted Date Resolved Date Hypokalemia 11/12/2012 08/29/2015 Actinic keratosis 10/04/2006 09/17/2014 Major depressive disorder, single episode, unspe cified 08/27/2017 documented as of this encounter (statuses as of 03/21/2022) [address]16-2013 History of Past illness Narrative* Problem Noted Date Resolved Date Hypokalemia 11/12/2012 08/29/2015 Actinic keratosis 10/04/2006 09/17/2014 Major depressive disorder, single episode, unspe cified 08/27/2017 documented as of this encounter (statuses as of 03/25/2022) [address]16-2013 History of Past illness Narrative* Problem Noted Date Resolved Date Hypokalemia 11/12/2012 08/29/2015 Actinic keratosis 10/04/2006 09/17/2014 Major depressive disorder, single episode, unspe cified 08/27/2017 documented as of this encounter (statuses as of 03/27/2022) [facility]-16-2013 History of Past illness Narrative* Problem Noted Date Resolved Date Hypokalemia 11/12/2012 08/29/2015 Actinic keratosis 10/04/2006 09/17/2014 Major depressive disorder, single episode, unspe cified 08/27/2017 documented as of this encounter (statuses as of 03/28/2022) [facility]-16-2013 History of Past illness Narrative* Problem Noted Date Resolved Date Hypokalemia 11/12/2012 08/29/2015 Actinic keratosis 10/04/2006 09/17/2014 Major depressive disorder, single episode, unspe cified 08/27/2017 documented as of this encounter (statuses as of 04/05/2022) [address]16-2013 History of Past illness Narrative* Problem Noted Date Resolved Date Hypokalemia 11/12/2012 08/29/2015 Actinic keratosis 10/04/2006 09/17/2014 Major depressive disorder, single episode, unspe cified 08/27/2017 documented as of this encounter (statuses as of 04/23/2022) [facility]-16-2013 History of Past illness Narrative* Problem Noted Date Resolved Date Hypokalemia 11/12/2012 08/29/2015 Actinic keratosis 10/04/2006 09/17/2014 Major depressive disorder, single episode, unspe cified 08/27/2017 documented as of this encounter (statuses as of 05/02/2022) [facility]16-2013 History of Past illness Narrative* Problem Noted Date Resolved Date Hypokalemia 11/12/2012 08/29/2015 Actinic keratosis 10/04/2006 09/17/2014 Major depressive disorder, single episode, unspe cified 08/27/2017 documented as of this encounter (statuses as of 05/04/2022) [address]16-2013 History of Past illness Narrative* Problem Noted Date Resolved Date Hypokalemia 11/12/2012 08/29/2015 Actinic keratosis 10/04/2006 09/17/2014 Major depressive disorder, single episode, unspe cified 08/27/2017 documented as of this encounter (statuses as of 05/09/2022) [address]16-2013 History of Past illness Narrative* Problem Noted Date Resolved Date Hypokalemia 11/12/2012 08/29/2015 Actinic keratosis 10/04/2006 09/17/2014 Major depressive disorder, single episode, unspe cified 08/27/2017 documented as of this encounter (statuses as of 05/11/2022) [address]16-2013 History of Past illness Narrative* Problem Noted Date Resolved Date Hypokalemia 11/12/2012 08/29/2015 Actinic keratosis 10/04/2006 09/17/2014 Major depressive disorder, single episode, unspe cified 08/27/2017 documented as of this encounter (statuses as of 05/30/2022) [address]16-2013 History of Past illness Narrative* Problem Noted Date Resolved Date Hypokalemia 11/12/2012 08/29/2015 Actinic keratosis 10/04/2006 09/17/2014 Major depressive disorder, single episode, unspe cified 08/27/2017 documented as of this encounter (statuses as of 05/30/2022) [address]16-2013 History of Past illness Narrative* Problem Noted Date Resolved Date Hypokalemia 11/12/2012 08/29/2015 Actinic keratosis 10/04/2006 09/17/2014 Major depressive disorder, single episode, unspe cified 08/27/2017 documented as of this encounter (statuses as of 06/26/2022) [address]16-2013 History of Past illness Narrative* Problem Noted Date Resolved Date Hypokalemia 11/12/2012 08/29/2015 Actinic keratosis 10/04/2006 09/17/2014 Major depressive disorder, single episode, unspe cified 08/27/2017 documented as of this encounter (statuses as of 06/27/2022) [facility]-16-2013 History of Past illness Narrative* Problem Noted Date Resolved Date Hypokalemia 11/12/2012 08/29/2015 Actinic keratosis 10/04/2006 09/17/2014 Major depressive disorder, single episode, unspe cified 08/27/2017 documented as of this encounter (statuses as of 06/27/2022) [address]16-2013 History of Past illness Narrative* Problem Noted Date Resolved Date Hypokalemia 11/12/2012 08/29/2015 Actinic keratosis 10/04/2006 09/17/2014 Major depressive disorder, single episode, unspe cified 08/27/2017 documented as of this encounter (statuses as of 07/10/2022) [facility]16-2013 History of Past illness Narrative* Problem Noted Date Resolved Date Hypokalemia 11/12/2012 08/29/2015 Actinic keratosis 10/04/2006 09/17/2014 Major depressive disorder, single episode, unspe cified 08/27/2017 documented as of this encounter (statuses as of 08/06/2022) [address]16-2013 History of Past illness Narrative* Problem Noted Date Resolved Date Hypokalemia 11/12/2012 08/29/2015 Actinic keratosis 10/04/2006 09/17/2014 Major depressive disorder, single episode, unspe cified 08/27/2017 documented as of this encounter (statuses as of 08/28/2022) [facility]16[facility]2013 History of Past illness Narrative* Problem Noted Date Resolved Date Hypokalemia 11/12/2012 08/29/2015 Actinic keratosis 10/04/2006 09/17/2014 Major depressive disorder, single episode, unspe cified 08/27/2017 documented as of this encounter (statuses as of 08/30/2022) [address]16-2013 History of Past illness Narrative* Problem Noted Date Resolved Date Hypokalemia 11/12/2012 08/29/2015 Actinic keratosis 10/04/2006 09/17/2014 Major depressive disorder, single episode, unspe cified 08/27/2017 documented as of this encounter (statuses as of 08/30/2022) [address]16-2013 History of Past illness Narrative* Problem Noted Date Resolved Date Hypokalemia 11/12/2012 08/29/2015 Actinic keratosis 10/04/2006 09/17/2014 Major depressive disorder, single episode, unspe cified 08/27/2017 documented as of this encounter (statuses as of 09/05/2022) [address]16-2013 History of Past illness Narrative* Problem Noted Date Resolved Date Hypokalemia 11/12/2012 08/29/2015 Actinic keratosis 10/04/2006 09/17/2014 Major depressive disorder, single episode, unspe cified 08/27/2017 documented as of this encounter (statuses as of 10/04/2022) [place] [id number] History of Past illness Narrative* Problem Noted Date Resolved Date Hypokalemia 11/12/2012 08/29/2015 Actinic keratosis 10/04/2006 09/17/2014 Major depressive disorder, single episode, unspe cified 08/27/2017 documented as of this encounter (statuses as of 10/10/2022) [address]16-2013 History of Past illness Narrative* Problem Noted Date Resolved Date Hypokalemia 11/12/2012 08/29/2015 Actinic keratosis 10/04/2006 09/17/2014 Major depressive disorder, single episode, unspe cified 08/27/2017 documented as of this encounter (statuses as of 10/10/2022) [address]16-2013 History of Past illness Narrative* Problem Noted Date Resolved Date Hypokalemia 11/12/2012 08/29/2015 Actinic keratosis 10/04/2006 09/17/2014 Major depressive disorder, single episode, unspe cified 08/27/2017 documented as of this encounter (statuses as of 10/15/2022) [address]16-2013 History of Past illness Narrative* Problem Noted Date Resolved Date Hypokalemia 11/12/2012 08/29/2015 Actinic keratosis 10/04/2006 09/17/2014 Major depressive disorder, single episode, unspe cified 08/27/2017 documented as of this encounter (statuses as of 10/28/2022) [address]16-2013 History of Past illness Narrative* Problem Noted Date Resolved Date Hypokalemia 11/12/2012 08/29/2015 Actinic keratosis 10/04/2006 09/17/2014 Major depressive disorder, single episode, unspe cified 08/27/2017 documented as of this encounter (statuses as of 10/30/2022) [address]16-2013 History of Past illness Narrative* Problem Noted Date Resolved Date Hypokalemia 11/12/2012 08/29/2015 Actinic keratosis 10/04/2006 09/17/2014 Major depressive disorder, single episode, unspe cified 08/27/2017 documented as of this encounter (statuses as of 12/20/2022) [address]16-2013 History of Past illness Narrative* Problem Noted Date Resolved Date Hypokalemia 11/12/2012 08/29/2015 Actinic keratosis 10/04/2006 09/17/2014 Major depressive disorder, single episode, unspe cified 08/27/2017 documented as of this encounter (statuses as of 01/08/2023) [address]16-2013 History of Past illness Narrative* Problem Noted Date Resolved Date Hypokalemia 11/12/2012 08/29/2015 Actinic keratosis 10/04/2006 09/17/2014 Major depressive disorder, single episode, unspe cified 08/27/2017 documented as of this encounter (statuses as of 02/18/2023) [address]16-2013 History of Past illness Narrative* Problem Noted Date Resolved Date Hypokalemia 11/12/2012 08/29/2015 Actinic keratosis 10/04/2006 09/17/2014 Major depressive disorder, single episode, unspe cified 08/27/2017 documented as of this encounter (statuses as of 02/19/2023) [address]16-2013 History of Past illness Narrative* Problem Noted Date Resolved Date Hypokalemia 11/12/2012 08/29/2015 Actinic keratosis 10/04/2006 09/17/2014 Major depressive disorder, single episode, unspe cified 08/27/2017 documented as of this encounter (statuses as of 02/19/2023) [facility]-16-2013 History of Past illness Narrative* Problem Noted Date Resolved Date Hypokalemia 11/12/2012 08/29/2015 Actinic keratosis 10/04/2006 09/17/2014 Major depressive disorder, single episode, unspe cified 08/27/2017 documented as of this encounter (statuses as of 02/20/2023) [address]16-2013 History of Past illness Narrative* Problem Noted Date Resolved Date Hypokalemia 11/12/2012 08/29/2015 Actinic keratosis 10/04/2006 09/17/2014 Major depressive disorder, single episode, unspe cified 08/27/2017 documented as of this encounter (statuses as of 03/02/2023) [facility]-16-2013 History of Past illness Narrative* Problem Noted Date Resolved Date Hypokalemia 11/12/2012 08/29/2015 Actinic keratosis 10/04/2006 09/17/2014 Major depressive disorder, single episode, unspe cified 08/27/2017 documented as of this encounter (statuses as of 03/02/2023) [facility]-16-2013 History of Past illness Narrative* Problem Noted Date Resolved Date Hypokalemia 11/12/2012 08/29/2015 Actinic keratosis 10/04/2006 09/17/2014 Major depressive disorder, single episode, unspe cified 08/27/2017 documented as of this encounter (statuses as of 03/06/2023) [address]16-2013 History of Past illness Narrative* Problem Noted Date Resolved Date Hypokalemia 11/12/2012 08/29/2015 Actinic keratosis 10/04/2006 09/17/2014 Major depressive disorder, single episode, unspe cified 08/27/2017 documented as of this encounter (statuses as of 03/29/2023) [place] [id number] History of Past illness Narrative* Problem Noted Date Resolved Date Hypokalemia 11/12/2012 08/29/2015 Actinic keratosis 10/04/2006 09/17/2014 Major depressive disorder, single episode, unspe cified 08/27/2017 documented as of this encounter (statuses as of 04/16/2023) [address]16-2013 History of Past illness Narrative* Problem Noted Date Resolved Date Hypokalemia 11/12/2012 08/29/2015 Actinic keratosis 10/04/2006 09/17/2014 Major depressive disorder, single episode, unspe cified 08/27/2017 documented as of this encounter (statuses as of 04/16/2023) [facility]-16-2013 History of Past illness Narrative* Problem Noted Date Resolved Date Hypokalemia 11/12/2012 08/29/2015 Actinic keratosis 10/04/2006 09/17/2014 Major depressive disorder, single episode, unspe cified 08/27/2017 documented as of this encounter (statuses as of 04/17/2023) [facility]16-2013 History of Past illness Narrative* Problem Noted Date Resolved Date Hypokalemia 11/12/2012 08/29/2015 Actinic keratosis 10/04/2006 09/17/2014 Major depressive disorder, single episode, unspe cified 08/27/2017 documented as of this encounter (statuses as of 04/17/2023) [facility]16-2013 History of Past illness Narrative* Problem Noted Date Resolved Date Hypokalemia 11/12/2012 08/29/2015 Actinic keratosis 10/04/2006 09/17/2014 Major depressive disorder, single episode, unspe cified 08/27/2017 documented as of this encounter (statuses as of 04/17/2023) [address]16-2013 History of Past illness Narrative* Problem Noted Date Resolved Date Hypokalemia 11/12/2012 08/29/2015 Actinic keratosis 10/04/2006 09/17/2014 Major depressive disorder, single episode, unspe cified 08/27/2017 documented as of this encounter (statuses as of 04/22/2023) [facility]16-2013 History of Past illness Narrative* Problem Noted Date Resolved Date Hypokalemia 11/12/2012 08/29/2015 Actinic keratosis 10/04/2006 09/17/2014 Major depressive disorder, single episode, unspe cified 08/27/2017 documented as of this encounter (statuses as of 04/25/2023) [address]16-2013 History of Past illness Narrative* Problem Noted Date Resolved Date Hypokalemia 11/12/2012 08/29/2015 Actinic keratosis 10/04/2006 09/17/2014 Major depressive disorder, single episode, unspe cified 08/27/2017 documented as of this encounter (statuses as of 04/30/2023) [facility]16-2013 History of Past illness Narrative* Problem Noted Date Diagnosed Date Resolved Date Hypokalemia 11/12/2012 08/29/2015 Actinic keratosis 10/04/2006 09/17/2014 Major depressive disorder, s dustin episode, unspecified 08/27/2017 documented as of this encounter (statuses as of 05/24/2023) [facility]16-2013 History of Past illness Narrative* Problem Noted Date Diagnosed Date Resolved Date Hypokalemia 11/12/2012 08/29/2015 Actinic keratosis 10/04/2006 09/17/2014 Major depressive disorder, s dustin episode, unspecified 08/27/2017 documented as of this encounter (statuses as of 06/06/2023) [facility]16-2013 History of Past illness Narrative* Problem Noted Date Diagnosed Date Resolved Date Hypokalemia 11/12/2012 08/29/2015 Actinic keratosis 10/04/2006 09/17/2014 Major depressive disorder, s dustin episode, unspecified 08/27/2017 documented as of this encounter (statuses as of 07/10/2023) [facility]16[facility]2013 History of Past illness Narrative* Problem Noted Date Diagnosed Date Resolved Date Hypokalemia 11/12/2012 08/29/2015 Actinic keratosis 10/04/2006 09/17/2014 Major depressive disorder, s dustin episode, unspecified 08/27/2017 documented as of this encounter (statuses as of 07/11/2023) [address]16-2013 History of Past illness Narrative* Problem Noted Date Diagnosed Date Resolved Date Hypokalemia 11/12/2012 08/29/2015 Actinic keratosis 10/04/2006 09/17/2014 Major depressive disorder, s dustin episode, unspecified 08/27/2017 documented as of this encounter (statuses as of 07/12/2023) [facility]16[facility]2013 History of Past illness Narrative* Problem Noted Date Diagnosed Date Resolved Date Hypokalemia 11/12/2012 08/29/2015 Actinic keratosis 10/04/2006 09/17/2014 Major depressive disorder, s dustin episode, unspecified 08/27/2017 documented as of this encounter (statuses as of 07/13/2023) [facility]-16-2013 History of Past illness Narrative* Problem Noted Date Diagnosed Date Resolved Date Hypokalemia 11/12/2012 08/29/2015 Actinic keratosis 10/04/2006 09/17/2014 Major depressive disorder, s dustin episode, unspecified 08/27/2017 documented as of this encounter (statuses as of 07/17/2023) [facility]16-2013 History of Past illness Narrative* Problem Noted Date Diagnosed Date Resolved Date Hypokalemia 11/12/2012 08/29/2015 Actinic keratosis 10/04/2006 09/17/2014 Major depressive disorder, s dustin episode, unspecified 08/27/2017 documented as of this encounter (statuses as of 07/19/2023) [facility]2013 History of Past illness Narrative* Problem Noted Date Diagnosed Date Resolved Date Hypokalemia 11/12/2012 08/29/2015 Actinic keratosis 10/04/2006 09/17/2014 Major depressive disorder, s dustin episode, unspecified 08/27/2017 documented as of this encounter (statuses as of 07/27/2023) [facility]16-2013 History of Past illness Narrative* Problem Noted Date Diagnosed Date Resolved Date Hypokalemia 11/12/2012 08/29/2015 Actinic keratosis 10/04/2006 09/17/2014 Major depressive disorder, s dustin episode, unspecified 08/27/2017 documented as of this encounter (statuses as of 07/30/2023) [facility]2013 History of Past illness Narrative* Problem Noted Date Diagnosed Date Resolved Date Hypokalemia 11/12/2012 08/29/2015 Actinic keratosis 10/04/2006 09/17/2014 Major depressive disorder, s dustin episode, unspecified 08/27/2017 documented as of this encounter (statuses as of 08/03/2023) [facility]2013 History of Past illness Narrative* Problem Noted Date Diagnosed Date Resolved Date Hypokalemia 11/12/2012 08/29/2015 Actinic keratosis 10/04/2006 09/17/2014 Major depressive disorder, s dustin episode, unspecified 08/27/2017 documented as of this encounter (statuses as of 08/03/2023) [address]16-2013 History of Past illness Narrative* Problem Noted Date Diagnosed Date Resolved Date Hypokalemia 11/12/2012 08/29/2015 Actinic keratosis 10/04/2006 09/17/2014 Major depressive disorder, s dustin episode, unspecified 08/27/2017 documented as of this encounter (statuses as of 08/07/2023) [facility]2013 History of Past illness Narrative* Problem Noted Date Diagnosed Date Resolved Date Hypokalemia 11/12/2012 08/29/2015 Actinic keratosis 10/04/2006 09/17/2014 Major depressive disorder, s dustin episode, unspecified 08/27/2017 documented as of this encounter (statuses as of 08/08/2023) [facility] History of Past illness Narrative* Problem Noted Date Diagnosed Date Resolved Date Hypokalemia 11/12/2012 08/29/2015 Actinic keratosis 10/04/2006 09/17/2014 Major depressive disorder, s dustin episode, unspecified 08/27/2017 documented as of this encounter (statuses as of 08/23/2023) [facility]2013 History of Past illness Narrative* Problem Noted Date Diagnosed Date Resolved Date Hypokalemia 11/12/2012 08/29/2015 Actinic keratosis 10/04/2006 09/17/2014 Major depressive disorder, s dustin episode, unspecified 08/27/2017 documented as of this encounter (statuses as of 09/01/2023) [address]16-2013 History of Past illness Narrative* Problem Noted Date Diagnosed Date Resolved Date Hypokalemia 11/12/2012 08/29/2015 Actinic keratosis 10/04/2006 09/17/2014 Major depressive disorder, s dustin episode, unspecified 08/27/2017 documented as of this encounter (statuses as of 09/01/2023) [address]16-2013 History of Past illness Narrative* Problem Noted Date Diagnosed Date Resolved Date Hypokalemia 11/12/2012 08/29/2015 Actinic keratosis 10/04/2006 09/17/2014 Major depressive disorder, s dustin episode, unspecified 08/27/2017 documented as of this encounter (statuses as of 09/01/2023) [address]16-2013 History of Past illness Narrative* Problem Noted Date Diagnosed Date Resolved Date Hypokalemia 11/12/2012 08/29/2015 Actinic keratosis 10/04/2006 09/17/2014 Major depressive disorder, s dustin episode, unspecified 08/27/2017 documented as of this encounter (statuses as of 09/05/2023) [address]16-2013 History of Past illness Narrative* Problem Noted Date Diagnosed Date Resolved Date Hypokalemia 11/12/2012 08/29/2015 Actinic keratosis 10/04/2006 09/17/2014 Major depressive disorder, s dustin episode, unspecified 08/27/2017 documented as of this encounter (statuses as of 09/05/2023) [address]16-2013 History of Past illness Narrative* Problem Noted Date Diagnosed Date Resolved Date Hypokalemia 11/12/2012 08/29/2015 Actinic keratosis 10/04/2006 09/17/2014 Major depressive disorder, s dustin episode, unspecified 08/27/2017 documented as of this encounter (statuses as of 09/11/2023) [address]16-2013 History of Past illness Narrative* Problem Noted Date Diagnosed Date Resolved Date Hypokalemia 11/12/2012 08/29/2015 Actinic keratosis 10/04/2006 09/17/2014 Major depressive disorder, s dustin episode, unspecified 08/27/2017 documented as of this encounter (statuses as of 09/13/2023) [address]16-2013 History of Past illness Narrative* Problem Noted Date Diagnosed Date Resolved Date Hypokalemia 11/12/2012 08/29/2015 Actinic keratosis 10/04/2006 09/17/2014 Major depressive disorder, s dustin episode, unspecified 08/27/2017 documented as of this encounter (statuses as of 09/14/2023) [facility] History of Past illness Narrative* Problem Noted Date Diagnosed Date Resolved Date Hypokalemia 11/12/2012 08/29/2015 Actinic keratosis 10/04/2006 09/17/2014 Major depressive disorder, s dustin episode, unspecified 08/27/2017 documented as of this encounter (statuses as of 10/01/2023) [address]16-2013 History of Past illness Narrative* Problem Noted Date Diagnosed Date Resolved Date Hypokalemia 11/12/2012 08/29/2015 Actinic keratosis 10/04/2006 09/17/2014 Major depressive disorder, s dustin episode, unspecified 08/27/2017 documented as of this encounter (statuses as of 10/07/2023) [address]16-2013 History of Past illness Narrative* Problem Noted Date Diagnosed Date Resolved Date Hypokalemia 11/12/2012 08/29/2015 Actinic keratosis 10/04/2006 09/17/2014 Major depressive disorder, s dustin episode, unspecified 08/27/2017 documented as of this encounter (statuses as of 10/07/2023) [facility]2013 History of Past illness Narrative* Problem Noted Date Diagnosed Date Resolved Date Hypokalemia 11/12/2012 08/29/2015 Actinic keratosis 10/04/2006 09/17/2014 Major depressive disorder, s dustin episode, unspecified 08/27/2017 documented as of this encounter (statuses as of 10/07/2023) [facility]2013 History of Past illness Narrative* Problem Noted Date Diagnosed Date Resolved Date Hypokalemia 11/12/2012 08/29/2015 Actinic keratosis 10/04/2006 09/17/2014 Major depressive disorder, s dustin episode, unspecified 08/27/2017 documented as of this encounter (statuses as of 10/09/2023) [address]16-2013 History of Past illness Narrative* Problem Noted Date Diagnosed Date Resolved Date Hypokalemia 11/12/2012 08/29/2015 Actinic keratosis 10/04/2006 09/17/2014 Major depressive disorder, s dustin episode, unspecified 08/27/2017 documented as of this encounter (statuses as of 10/09/2023) [facility] Upper respiratory infection with cough and congestion- Primary Acute upper respiratory infections of unspecified site Depression, major, recurrent, moderate (HCC) Major depressive disorder, recurrent episode, moderate Ulcerative colitis without complications, unspecified location (HCC) Stage 3a chronic kidney disease (HCC) Essential hypertension, benign documented in this encounter [facility] note* Diagnosis Generalized abdominal pain- Primary Abdominal pain, generalized Diarrhea, unspecified type Depression, major, recurrent, moderate (HCC) Major depressive disorder, recurrent episode, moderate 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 Stage 3a chronic kidney disease (HCC) Essential hypertension, benign documented in this encounter [facility] note* Diagnosis Chronic anxiety Anxiety state, unspecified Chronic insomnia Insomnia, unspecified documented in this encounter [facility] note* Diagnosis Redness of skin- Primary Unspecified erythematous condition [facility] Diagnosis Chronic anxiety Anxiety state, unspecified Chronic insomnia Insomnia, unspecified documented in this encounter [facility] note* Diagnosis Chronic anxiety Anxiety state, unspecified Chronic insomnia Insomnia, unspecified documented in this encounter [facility] note* Diagnosis Chronic insomnia- Primary Insomnia, unspecified Chronic prescription benzodiazepine use documented in this encounter [facility] note* Diagnosis Chronic insomnia- Primary Insomnia, unspecified documented in this encounter [facility] note* Diagnosis Concussion without loss of consciousness, subsequent encounter- Primary Closed head injury, subsequent encounter Fall, subsequent encounter [facility]* Diagnosis Chronic insomnia Insomnia, unspecified documented in this encounter [facility] note* Diagnosis Chronic insomnia Insomnia, unspecified documented in this encounter [facility] note* Diagnosis Chronic insomnia Insomnia, unspecified documented in this encounter [facility] note* Diagnosis Medicare annual wellness visit, subsequent- Primary Routine general medical examination at a health care facility Depression, major, recurrent, moderate (HCC) Major depressive disorder, recurrent episode, moderate Chronic insomnia Insomnia, unspecified meterman prescription benzodiazepine use Coronary artery disease involving [place] coronary artery of [place] heart without angina pectoris Other ulcerative colitis without complication (HCC) Systemic lupus erythematosus, unspecified SLE type, unspecified organ involvement status ([facility]) documented in this encounter [facility] note* Diagnosis Hyperlipidemia with target LDL less than 100 Other and unspecified hyperlipidemia [facility] Diagnosis Need for vaccination- Primary Need for prophylactic vaccination and inoculation against unspecified single disease documented in this encounter [facility] note* Diagnosis Chronic insomnia Insomnia, unspecified [facility]* Diagnosis Need for vaccination- Primary Need for prophylactic vaccination and inoculation against unspecified single disease [facility]* Diagnosis Chronic insomnia Insomnia, unspecified documented in this encounter [facility] note* Diagnosis Chronic insomnia Insomnia, unspecified [facility]* Diagnosis Encounter to establish care- Primary Other reasons for seeking consultation Coronary artery disease involving [place] coronary artery of [place] heart without angina pectoris Hyperlipidemia with target LDL less than 100 Other and unspecified hyperlipidemia Essential hypertension Unspecified essential hypertension Hypertensive kidney disease with stage 3a chronic kidney disease (HCC) Gastroesophageal reflux disease without esophagitis Esophageal reflux 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 Collagenous colitis Other and unspecified noninfectious gastroenteritis and colitis 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 Chronic anxiety Anxiety state, unspecified Insomnia secondary to anxiety Anxiety state, unspecified Depression, major, recurrent, moderate (HCC) Major depressive disorder, recurrent episode, moderate Inflammatory polyarthritis (HCC) Unspecified inflammatory polyarthropathy Use of proton pump inhibitor therapy Encounter for long-term (current) use of other medications documented in this encounter [facility] note* Diagnosis Chronic anxiety Anxiety state, unspecified [facility]* Diagnosis Chronic anxiety Anxiety state, unspecified [facility]* Diagnosis Chronic anxiety Anxiety state, unspecified documented in this encounter [facility] note* Diagnosis Depression, major, recurrent, moderate (HCC) Major depressive disorder, recurrent episode, moderate [facility]* Diagnosis Depression, major, recurrent, moderate (HCC) Major depressive disorder, recurrent episode, moderate [facility]* Diagnosis Inflammatory polyarthritis (HCC)- Primary Unspecified inflammatory polyarthropathy Ulcerative colitis with complication, unspecified location (HCC) Inflammatory bowel arthritis Other and unspecified noninfectious gastroenteritis and colitis Pain in joint, multiple sites Long-term use of immunosuppressant medication Encounter for long-term (current) use of other medications Hypercalcemia [facility]* Diagnosis Coronary artery disease involving [place] coronary artery of [place] heart without angina pectoris- Primary Essential hypertension Unspecified essential hypertension Hyperlipidemia with target LDL less than 100 Other and unspecified hyperlipidemia Hypertensive kidney disease with stage 3a chronic kidney disease (HCC) Gastroesophageal reflux disease without esophagitis Esophageal reflux Other ulcerative colitis without complication (HCC) Collagenous colitis Other and unspecified noninfectious gastroenteritis and colitis Intestinal disaccharidase deficiencies and disaccharide malabsorption Chronic anxiety Anxiety state, unspecified Insomnia secondary to anxiety Anxiety state, unspecified Depression, major, recurrent, moderate (HCC) Major depressive disorder, recurrent episode, moderate Encounter for immunization Need for other specified prophylactic vaccination against single bacterial disease [facility] systemic steroid user Inflammatory polyarthritis (HCC) Unspecified inflammatory polyarthropathy Lupus (HCC) Systemic lupus erythematosus [facility]* Diagnosis Vitamin D deficiency- Primary Unspecified vitamin D deficiency Hypercalcemia documented [facility]* Diagnosis Hypercalcemia- Primary [facility]* Diagnosis Primary hyperparathyroidism (HCC)- Primary Primary hyperparathyroidism Conflict between patient and family documented in this encounter [facility] note* Diagnosis Oral thrush- Primary Candidiasis of mouth [facility] Diagnosis Lumbar pain- Primary Lumbago [facility] Diagnosis Lumbar pain- Primary Lumbago [facility]* Diagnosis Urgency of urination- Primary [facility]* Diagnosis Hypercalcemia [facility]* Diagnosis Primary hyperparathyroidism (HCC) Primary hyperparathyroidism [facility]* Diagnosis Temporal headache- Primary Headache Hospital discharge follow-up Other follow-up examination Chest pain, unspecified type History of nuclear stress test negative Other specified personal history presenting hazards to health documented in this encounter [facility] note* Diagnosis Chronic nausea Nausea alone documented in this encounter [facility] note* Diagnosis Inflammatory polyarthritis (HCC)- Primary Unspecified inflammatory polyarthropathy Ulcerative colitis with complication, unspecified location (HCC) Long-term use of immunosuppressant medication Encounter for long-term (current) use of other medications Pain in joint, multiple sites Osteopenia of multiple sites documented in this encounter [facility] for referral (narrative)* Diagnostic Procedure Only (Routine) - Closed Specialty Diagnoses / Procedures Referred By Contac t Referred To Contact XR IMAGING Diagnoses Generalized abdominal pain Diarrhea, unspecified type 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) Procedures XR ABDOMEN 1V SUPINE RADIOLOGIC EXAM ABDOMEN 1 VIEW Narayan Gilbert APRN.CNP, DNP [address] [place] [address] Xr Imaging Referral ID Status Reason Start Date Expiration Date V isits Requested Visits Authorized [id number] Closed Auto-Generate d Referral 02/13/2022 03/15/2023 1 1 [facility] for referral (narrative)* Diagnostic Procedure Only (Routine) - Closed Specialty Diagnoses / Procedures Referred By Contac t Referred To Contact XR IMAGING Diagnoses Pain in joint, multiple sites Procedures XR HAND GENERAL 3V PA/LAT/OBL BILATERAL RADEX HAND MINIMUM [address] [place] [address] [place] [address] Xr Imaging Referral ID Status Reason Start Date Expiration Date V isits Requested Visits Authorized [id number] Closed Auto-Generate d Referral 04/15/2023 05/14/2024 1 1 [facility] for referral (narrative)* Diagnostic Procedure Only (Routine) - Authorized Specialty Diagnoses / Procedures Referred By Contac t Referred To Contact US IMAGING Diagnoses Primary hyperparathyroidism (HCC) Procedures US THYROID/PARATHYROID US SOFT TISSUE HEAD & NECK REAL TIME IMGE Giancarlo Wade PA-C [address] [place] [address] [place] [address] Referral ID Status Reason Start Date Expiration Date Visits Requested Visits Authorized [id number] Authorized Auto-Generat ed Referral 07/12/2023 08/10/2024 1 1 [facility] for referral (narrative)* Diagnostic Procedure Only (Routine) - Closed Specialty Diagnoses / Procedures Referred By Chelaac t Referred To Contact US IMAGING Diagnoses Primary hyperparathyroidism (HCC) Procedures US THYROID/PARATHYROID US SOFT TISSUE HEAD & NECK REAL TIME IMGE Giancarlo Wade PA-C [address] [place] [address] [place] [address] Referral ID Status Reason Start Date Expiration Date V isits Requested Visits Authorized [id number] Closed Auto-Generate d Referral 07/12/2023 08/10/2024 1 1 [facility] Summary Purpose Family History No Family History Records FoundNo Family History Records FoundNo Family History Records Found Advance Directives No Advanced Directives Records FoundDocuments on File Type Date Recorded Patient 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 anation Advance Directive(s) 11/07/2016 12:43 PM Advance Directive(s) 05/17/2016 11:11 AM Advance Directive(s) 05/01/2016 3:03 PM Documents on File Type Date Recorded Patient 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 anation Advance Directive(s) 11/07/2016 12:43 PM Advance Directive(s) 05/17/2016 11:11 AM Advance Directive(s) 05/01/2016 3:03 PM Reason for Referral Specialty Diagnoses / Procedures Referred By Derik t Referred To Contact Diagnoses Chronic insomnia 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, 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 [address] [place] [address] Referral ID Status Reason Start Date Expiration Date V isits Requested Visits Authorized [id number] Pending Review 1 1 Specialty Diagnoses / Procedures Referred By Contac t Referred To Contact MOLECULAR & FUNCTIONAL IMAGING Diagnoses 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 60-74 MINUTES Giancarlo Castaneda PA-C [address] [place] [address] Referral ID Status Reason Start Date Expiration Date Visits Requested Visits Authorized [id number] Pending Review PCP Requested Referral 01/08/2023 01/08/2024 1 1 Specialty Diagnoses / Procedures Referred By Contac t Referred To Contact Endocrinology Diagnoses Hypercalcemia Procedures CONSULT TO ENDOCRINOLOGY OFFICE/OUTPATIENT [facility] 60-74 MINUTES Alejo Luu MD [address] [place] [address] Referral ID Status Reason Start Date Expiration Date Visits Requested Visits Authorized [id number] Pending Review PCP Requested Referral 07/10/2023 07/09/2024 1 1 Specialty Diagnoses / Procedures Referred By Contac t Referred To Contact Pain Management Diagnoses Lumbar pain Procedures CONSULT TO PAIN MGT OFFICE/OUTPATIENT [facility] 60-74 MINUTES Giancarlo Castaneda PA-C [address] [place] [address] Referral ID Status Reason Start Date Expiration Date Visits Requested Visits Authorized [id number] Pending Review PCP Requested Referral 08/01/2023 07/31/2024 1 1 Medications Administered Section Administered Medications Medication Order MAR Action Action Date Dose Rate Site Tuberculin Skin Test, unspecified Given 07/16/2020 0.5 ml Additional Source Comments INFORMATION SOURCE (unrecogn ized section and content) DATE CREATED AUTHOR AUTHOR'S ORGANIZ ATION 04/23/2018 [facility] [employer] [facility] DATE CREATED AUTHOR AUTHOR'S ORGANIZ ATION 10/09/2023 [facility] Source Comments (unrecognize d section and content) In the event this informatio n is protected by the Federal Confidentiality of Alcohol and Drug Abuse Patient Records regulations: The Federal rules restrict any use of the information to criminally investigate or prosecute any alcohol or drug abuse patient.[facility] the event this information is protected by the Federal Confidentiality of Alcohol and Drug Abuse Patient Records regulations: The Federal rules restrict any use of the information to criminally investigate or prosecute any alcohol or drug abuse patient.[facility] the event this information is protected by the Federal Confidentiality of Alcohol and Drug Abuse Patient Records regulations: The Federal rules restrict any use of the information to criminally investigate or prosecute any alcohol or drug abuse patient.[facility] the event this information is protected by the Federal Confidentiality of Alcohol and Drug Abuse Patient Records regulations: The Federal rules restrict any use of the information to criminally investigate or prosecute any alcohol or drug abuse patient.[facility] the event this information is protected by the Federal Confidentiality of Alcohol and Drug Abuse Patient Records regulations: The Federal rules restrict any use of the information to criminally investigate or prosecute any alcohol or drug abuse patient.[facility] event this information is protected by the Federal Confidentiality of Alcohol and Drug Abuse Patient Records regulations: The Federal rules restrict any use of the information to criminally investigate or prosecute any alcohol or drug abuse patient.[facility] HamiltonIn the event this information is protected by the Federal Confidentiality of Alcohol and Drug Abuse Patient Records regulations: The Federal rules restrict any use of the information to criminally investigate or prosecute any alcohol or drug abuse patient.[facility] HamiltonIn the event this information is protected by the Federal Confidentiality of Alcohol and Drug Abuse Patient Records regulations: The Federal rules restrict any use of the information to criminally investigate or prosecute any alcohol or drug abuse patient.[facility] HamiltonIn the event this information is protected by the Federal Confidentiality of Alcohol and Drug Abuse Patient Records regulations: The Federal rules restrict any use of the information to criminally investigate or prosecute any alcohol or drug abuse patient.[facility] HamiltonIn the event this information is protected by the Federal Confidentiality of Alcohol and Drug Abuse Patient Records regulations: The Federal rules restrict any use of the information to criminally investigate or prosecute any alcohol or drug abuse patient.[facility] HamiltonIn the event this information is protected by the Federal Confidentiality of Alcohol and Drug Abuse Patient Records regulations: The Federal rules restrict any use of the information to criminally investigate or prosecute any alcohol or drug abuse patient.[facility] HamiltonIn the event this information is protected by the Federal Confidentiality of Alcohol and Drug Abuse Patient Records regulations: The Federal rules restrict any use of the information to criminally investigate or prosecute any alcohol or drug abuse patient.[facility] HamiltonIn the event this information is protected by the Federal Confidentiality of Alcohol and Drug Abuse Patient Records regulations: The Federal rules restrict any use of the information to criminally investigate or prosecute any alcohol or drug abuse patient.[facility] HamiltonIn the event this information is protected by the Federal Confidentiality of Alcohol and Drug Abuse Patient Records regulations: The Federal rules restrict any use of the information to criminally investigate or prosecute any alcohol or drug abuse patient.[facility] HamiltonIn the event this information is protected by the Federal Confidentiality of Alcohol and Drug Abuse Patient Records regulations: The Federal rules restrict any use of the information to criminally investigate or prosecute any alcohol or drug abuse patient.[facility] HamiltonIn the event this information is protected by the Federal Confidentiality of Alcohol and Drug Abuse Patient Records regulations: The Federal rules restrict any use of the information to criminally investigate or prosecute any alcohol or drug abuse patient.[facility] HamiltonIn the event this information is protected by the Federal Confidentiality of Alcohol and Drug Abuse Patient Records regulations: The Federal rules restrict any use of the information to criminally investigate or prosecute any alcohol or drug abuse patient.[facility] HamiltonIn the event this information is protected by the Federal Confidentiality of Alcohol and Drug Abuse Patient Records regulations: The Federal rules restrict any use of the information to criminally investigate or prosecute any alcohol or drug abuse patient.[facility] HamiltonIn the event this information is protected by the Federal Confidentiality of Alcohol and Drug Abuse Patient Records regulations: The Federal rules restrict any use of the information to criminally investigate or prosecute any alcohol or drug abuse patient.[facility] HamiltonIn the event this information is protected by the Federal Confidentiality of Alcohol and Drug Abuse Patient Records regulations: The Federal rules restrict any use of the information to criminally investigate or prosecute any alcohol or drug abuse patient.[facility] HamiltonIn the event this information is protected by the Federal Confidentiality of Alcohol and Drug Abuse Patient Records regulations: The Federal rules restrict any use of the information to criminally investigate or prosecute any alcohol or drug abuse patient.[facility] HamiltonIn the event this information is protected by the Federal Confidentiality of Alcohol and Drug Abuse Patient Records regulations: The Federal rules restrict any use of the information to criminally investigate or prosecute any alcohol or drug abuse patient.[facility] HamiltonIn the event this information is protected by the Federal Confidentiality of Alcohol and Drug Abuse Patient Records regulations: The Federal rules restrict any use of the information to criminally investigate or prosecute any alcohol or drug abuse patient.[facility] HamiltonIn the event this information is protected by the Federal Confidentiality of Alcohol and Drug Abuse Patient Records regulations: The Federal rules restrict any use of the information to criminally investigate or prosecute any alcohol or drug abuse patient.[facility] HamiltonIn the event this information is protected by the Federal Confidentiality of Alcohol and Drug Abuse Patient Records regulations: The Federal rules restrict any use of the information to criminally investigate or prosecute any alcohol or drug abuse patient.[facility] HamiltonIn the event this information is protected by the Federal Confidentiality of Alcohol and Drug Abuse Patient Records regulations: The Federal rules restrict any use of the information to criminally investigate or prosecute any alcohol or drug abuse patient.[facility] HamiltonIn the event this information is protected by the Federal Confidentiality of Alcohol and Drug Abuse Patient Records regulations: The Federal rules restrict any use of the information to criminally investigate or prosecute any alcohol or drug abuse patient.[facility] HamiltonIn the event this information is protected by the Federal Confidentiality of Alcohol and Drug Abuse Patient Records regulations: The Federal rules restrict any use of the information to criminally investigate or prosecute any alcohol or drug abuse patient.[facility] HamiltonIn the event this information is protected by the Federal Confidentiality of Alcohol and Drug Abuse Patient Records regulations: The Federal rules restrict any use of the information to criminally investigate or prosecute any alcohol or drug abuse patient.[facility] HamiltonIn the event this information is protected by the Federal Confidentiality of Alcohol and Drug Abuse Patient Records regulations: The Federal rules restrict any use of the information to criminally investigate or prosecute any alcohol or drug abuse patient.[facility] HamiltonIn the event this information is protected by the Federal Confidentiality of Alcohol and Drug Abuse Patient Records regulations: The Federal rules restrict any use of the information to criminally investigate or prosecute any alcohol or drug abuse patient.[facility] HamiltonIn the event this information is protected by the Federal Confidentiality of Alcohol and Drug Abuse Patient Records regulations: The Federal rules restrict any use of the information to criminally investigate or prosecute any alcohol or drug abuse patient.[facility] HamiltonIn the event this information is protected by the Federal Confidentiality of Alcohol and Drug Abuse Patient Records regulations: The Federal rules restrict any use of the information to criminally investigate or prosecute any alcohol or drug abuse patient.[facility] HamiltonIn the event this information is protected by the Federal Confidentiality of Alcohol and Drug Abuse Patient Records regulations: The Federal rules restrict any use of the information to criminally investigate or prosecute any alcohol or drug abuse patient.[facility] HamiltonIn the event this information is protected by the Federal Confidentiality of Alcohol and Drug Abuse Patient Records regulations: The Federal rules restrict any use of the information to criminally investigate or prosecute any alcohol or drug abuse patient.[facility] HamiltonIn the event this information is protected by the Federal Confidentiality of Alcohol and Drug Abuse Patient Records regulations: The Federal rules restrict any use of the information to criminally investigate or prosecute any alcohol or drug abuse patient.[facility] HamiltonIn the event this information is protected by the Federal Confidentiality of Alcohol and Drug Abuse Patient Records regulations: The Federal rules restrict any use of the information to criminally investigate or prosecute any alcohol or drug abuse patient.[facility] HamiltonIn the event this information is protected by the Federal Confidentiality of Alcohol and Drug Abuse Patient Records regulations: The Federal rules restrict any use of the information to criminally investigate or prosecute any alcohol or drug abuse patient.[facility] HamiltonIn the event this information is protected by the Federal Confidentiality of Alcohol and Drug Abuse Patient Records regulations: The Federal rules restrict any use of the information to criminally investigate or prosecute any alcohol or drug abuse patient.[facility] HamiltonIn the event this information is protected by the Federal Confidentiality of Alcohol and Drug Abuse Patient Records regulations: The Federal rules restrict any use of the information to criminally investigate or prosecute any alcohol or drug abuse patient.[facility] HamiltonIn the event this information is protected by the Federal Confidentiality of Alcohol and Drug Abuse Patient Records regulations: The Federal rules restrict any use of the information to criminally investigate or prosecute any alcohol or drug abuse patient.[facility] HamiltonIn the event this information is protected by the Federal Confidentiality of Alcohol and Drug Abuse Patient Records regulations: The Federal rules restrict any use of the information to criminally investigate or prosecute any alcohol or drug abuse patient.[facility] HamiltonIn the event this information is protected by the Federal Confidentiality of Alcohol and Drug Abuse Patient Records regulations: The Federal rules restrict any use of the information to criminally investigate or prosecute any alcohol or drug abuse patient.[facility] HamiltonIn the event this information is protected by the Federal Confidentiality of Alcohol and Drug Abuse Patient Records regulations: The Federal rules restrict any use of the information to criminally investigate or prosecute any alcohol or drug abuse patient.[facility] HamiltonIn the event this information is protected by the Federal Confidentiality of Alcohol and Drug Abuse Patient Records regulations: The Federal rules restrict any use of the information to criminally investigate or prosecute any alcohol or drug abuse patient.[facility] HamiltonIn the event this information is protected by the Federal Confidentiality of Alcohol and Drug Abuse Patient Records regulations: The Federal rules restrict any use of the information to criminally investigate or prosecute any alcohol or drug abuse patient.[facility] HamiltonIn the event this information is protected by the Federal Confidentiality of Alcohol and Drug Abuse Patient Records regulations: The Federal rules restrict any use of the information to criminally investigate or prosecute any alcohol or drug abuse patient.[facility] HamiltonIn the event this information is protected by the Federal Confidentiality of Alcohol and Drug Abuse Patient Records regulations: The Federal rules restrict any use of the information to criminally investigate or prosecute any alcohol or drug abuse patient.[facility] HamiltonIn the event this information is protected by the Federal Confidentiality of Alcohol and Drug Abuse Patient Records regulations: The Federal rules restrict any use of the information to criminally investigate or prosecute any alcohol or drug abuse patient.[facility] HamiltonIn the event this information is protected by the Federal Confidentiality of Alcohol and Drug Abuse Patient Records regulations: The Federal rules restrict any use of the information to criminally investigate or prosecute any alcohol or drug abuse patient.[facility] HamiltonIn the event this information is protected by the Federal Confidentiality of Alcohol and Drug Abuse Patient Records regulations: The Federal rules restrict any use of the information to criminally investigate or prosecute any alcohol or drug abuse patient.[facility] HamiltonIn the event this information is protected by the Federal Confidentiality of Alcohol and Drug Abuse Patient Records regulations: The Federal rules restrict any use of the information to criminally investigate or prosecute any alcohol or drug abuse patient.[facility] HamiltonIn the event this information is protected by the Federal Confidentiality of Alcohol and Drug Abuse Patient Records regulations: The Federal rules restrict any use of the information to criminally investigate or prosecute any alcohol or drug abuse patient.[facility] HamiltonIn the event this information is protected by the Federal Confidentiality of Alcohol and Drug Abuse Patient Records regulations: The Federal rules restrict any use of the information to criminally investigate or prosecute any alcohol or drug abuse patient.[facility] HamiltonIn the event this information is protected by the Federal Confidentiality of Alcohol and Drug Abuse Patient Records regulations: The Federal rules restrict any use of the information to criminally investigate or prosecute any alcohol or drug abuse patient.[facility] HamiltonIn the event this information is protected by the Federal Confidentiality of Alcohol and Drug Abuse Patient Records regulations: The Federal rules restrict any use of the information to criminally investigate or prosecute any alcohol or drug abuse patient.[facility] HamiltonIn the event this information is protected by the Federal Confidentiality of Alcohol and Drug Abuse Patient Records regulations: The Federal rules restrict any use of the information to criminally investigate or prosecute any alcohol or drug abuse patient.[facility] HamiltonIn the event this information is protected by the Federal Confidentiality of Alcohol and Drug Abuse Patient Records regulations: The Federal rules restrict any use of the information to criminally investigate or prosecute any alcohol or drug abuse patient.[facility] HamiltonIn the event this information is protected by the Federal Confidentiality of Alcohol and Drug Abuse Patient Records regulations: The Federal rules restrict any use of the information to criminally investigate or prosecute any alcohol or drug abuse patient.[facility] HamiltonIn the event this information is protected by the Federal Confidentiality of Alcohol and Drug Abuse Patient Records regulations: The Federal rules restrict any use of the information to criminally investigate or prosecute any alcohol or drug abuse patient.[facility] HamiltonIn the event this information is protected by the Federal Confidentiality of Alcohol and Drug Abuse Patient Records regulations: The Federal rules restrict any use of the information to criminally investigate or prosecute any alcohol or drug abuse patient.[facility] HamiltonIn the event this information is protected by the Federal Confidentiality of Alcohol and Drug Abuse Patient Records regulations: The Federal rules restrict any use of the information to criminally investigate or prosecute any alcohol or drug abuse patient.[facility] HamiltonIn the event this information is protected by the Federal Confidentiality of Alcohol and Drug Abuse Patient Records regulations: The Federal rules restrict any use of the information to criminally investigate or prosecute any alcohol or drug abuse patient.[facility] HamiltonIn the event this information is protected by the Federal Confidentiality of Alcohol and Drug Abuse Patient Records regulations: The Federal rules restrict any use of the information to criminally investigate or prosecute any alcohol or drug abuse patient.[facility] HamiltonIn the event this information is protected by the Federal Confidentiality of Alcohol and Drug Abuse Patient Records regulations: The Federal rules restrict any use of the information to criminally investigate or prosecute any alcohol or drug abuse patient.[facility] HamiltonIn the event this information is protected by the Federal Confidentiality of Alcohol and Drug Abuse Patient Records regulations: The Federal rules restrict any use of the information to criminally investigate or prosecute any alcohol or drug abuse patient.[facility] HamiltonIn the event this information is protected by the Federal Confidentiality of Alcohol and Drug Abuse Patient Records regulations: The Federal rules restrict any use of the information to criminally investigate or prosecute any alcohol or drug abuse patient.[facility] HamiltonIn the event this information is protected by the Federal Confidentiality of Alcohol and Drug Abuse Patient Records regulations: The Federal rules restrict any use of the information to criminally investigate or prosecute any alcohol or drug abuse patient.[facility] HamiltonIn the event this information is protected by the Federal Confidentiality of Alcohol and Drug Abuse Patient Records regulations: The Federal rules restrict any use of the information to criminally investigate or prosecute any alcohol or drug abuse patient.[facility] HamiltonIn the event this information is protected by the Federal Confidentiality of Alcohol and Drug Abuse Patient Records regulations: The Federal rules restrict any use of the information to criminally investigate or prosecute any alcohol or drug abuse patient.[facility] HamiltonIn the event this information is protected by the Federal Confidentiality of Alcohol and Drug Abuse Patient Records regulations: The Federal rules restrict any use of the information to criminally investigate or prosecute any alcohol or drug abuse patient.[facility] HamiltonIn the event this information is protected by the Federal Confidentiality of Alcohol and Drug Abuse Patient Records regulations: The Federal rules restrict any use of the information to criminally investigate or prosecute any alcohol or drug abuse patient.[facility] HamiltonIn the event this information is protected by the Federal Confidentiality of Alcohol and Drug Abuse Patient Records regulations: The Federal rules restrict any use of the information to criminally investigate or prosecute any alcohol or drug abuse patient.[facility] HamiltonIn the event this information is protected by the Federal Confidentiality of Alcohol and Drug Abuse Patient Records regulations: The Federal rules restrict any use of the information to criminally investigate or prosecute any alcohol or drug abuse patient.[facility] HamiltonIn the event this information is protected by the Federal Confidentiality of Alcohol and Drug Abuse Patient Records regulations: The Federal rules restrict any use of the information to criminally investigate or prosecute any alcohol or drug abuse patient.[facility] HamiltonIn the event this information is protected by the Federal Confidentiality of Alcohol and Drug Abuse Patient Records regulations: The Federal rules restrict any use of the information to criminally investigate or prosecute any alcohol or drug abuse patient.[facility] HamiltonIn the event this information is protected by the Federal Confidentiality of Alcohol and Drug Abuse Patient Records regulations: The Federal rules restrict any use of the information to criminally investigate or prosecute any alcohol or drug abuse patient.[facility] HamiltonIn the event this information is protected by the Federal Confidentiality of Alcohol and Drug Abuse Patient Records regulations: The Federal rules restrict any use of the information to criminally investigate or prosecute any alcohol or drug abuse patient.[facility] HamiltonIn the event this information is protected by the Federal Confidentiality of Alcohol and Drug Abuse Patient Records regulations: The Federal rules restrict any use of the information to criminally investigate or prosecute any alcohol or drug abuse patient.[facility] HamiltonIn the event this information is protected by the Federal Confidentiality of Alcohol and Drug Abuse Patient Records regulations: The Federal rules restrict any use of the information to criminally investigate or prosecute any alcohol or drug abuse patient.[facility] HamiltonIn the event this information is protected by the Federal Confidentiality of Alcohol and Drug Abuse Patient Records regulations: The Federal rules restrict any use of the information to criminally investigate or prosecute any alcohol or drug abuse patient.[facility] Reason for Visit (unrecogniz ed section and content) Reason Comments Abdominal Pain Diarrhea Reason Comments Refill Request Reason Comments Blister R foot fifth toe x1 week Reason Onset Date Comments Refill Request 03/27/2022 Reason Comments Refill Request patient out of medic ation Reason Comments Rx Refills Reason Comments ED Follow-up Fell; has headaches, dizziness and nausea x3 days Reason Comments Insurance Authorization doxepin Reason Onset Date Comments Refill Request 06/27/2022 Reason Onset Date Comments Refill Request 08/05/2022 Reason Comments Medicare Wellness Exam Transfer of care from Eduardo Gilbert Reason Comments Results Reason Comments Imm/Inj Reason Comments Patient Question Reason Comments Establish Care Reason Onset Date Comments Refill Request 02/18/2023 Reason Comments Medication Problem Reason Onset Date Comments Refill Request 03/29/2023 Reason Comments New Patient Specialty Diagnoses / Procedures Referred By Contac t Referred To Contact Rheumatology Diagnoses Inflammatory polyarthritis (HCC) Procedures CONSULT TO RHEUM/IMMUN DISEASE OFFICE/OUTPATIENT NEW HIGH MDM 60-74 MINUTES Giancarlo Castaneda PA-C [address] [place] [address] Referral ID Status Reason Start Date Expiration Date Visits Requested Visits Authorized [id number] Pending Review PCP Requested Referral 01/08/2023 01/08/2024 1 1 Reason Comments 6 Month Exam Reason Onset Date Comments Refill Request 04/16/2023 Reason Onset Date Comments Refill Request 07/05/2023 Reason Comments Results Reason Comments Follow Up Reason Comments Back Pain Reason Comments Referral Information Needed Reason Comments Recommendation for lab results Reason Comments sores in mouth X 2 days Reason Comments Back Pain Spasms Reason Comments PT Eval Specialty Diagnoses / Procedures Referred By Contac t Referred To Contact [facility] Diagnoses Lumbar pain Procedures CONSULT TO PHYSICAL THERAPY PHYSICAL THERAPY EVALUATION HIGH COMPLEX 45 MINS Alejo Luu MD [address] [place] [address] [facility] [address] [place] [address] Referral ID Status Reason Start Date Expiration Date Visits Requested Visits Authorized [id number] Authorized Auto-Generat ed Referral 10/28/2022 10/27/2023 99 99 Reason Onset Date Comments Refill Request 08/08/2023 Reason Comments UTI Burning and urgency, lower abd pressure, nausea, urine odor x1 week Reason Comments Radiology US Specialty Diagnoses / Procedures Referred By Contac t Referred To Contact US IMAGING Diagnoses Primary hyperparathyroidism (HCC) Procedures US THYROID/PARATHYROID US SOFT TISSUE HEAD & NECK REAL TIME IMGE Giancarlo Wade PA-C [address] [place] [address] [place] [id number] Referral ID Status Reason Start Date Expiration Date V isits Requested Visits Authorized [id number] Closed Auto-Generate d Referral 07/12/2023 08/10/2024 1 1 Reason Comments Hospital F/U Chest pain. EKG/stre ss test normal Reason Onset Date Comments Refill Request 09/10/2023 Reason Comments Medication Problem Medication refill Reason Onset Date Comments Refill Request 09/30/2023 Reason Comments Inflammatory Arthritis Reason Onset Date Comments Refill Request 10/08/2023 Care Teams (unrecognized sec tion and content) Telecommunications Sales Representative Relationship Specialty Start Date End Date Narayan Gilbert, ROLLER LEVELER.SHELLI GONZALES [address] [place] [address] PCP - General Family Practice 04/12/21 Telecommunications Sales Representative Relationship Specialty Start Date End Date Narayan Gilbert, MARCELA.SHELLI GONZALES [address] [place] [address] PCP - General Family Practice 04/12/21 Telecommunications Sales Representative Relationship Specialty Start Date End Date Narayan Gilbert, MARCELA.SHELLI GONZALES [address] [place] [address] PCP - General Family Practice 04/12/21 Telecommunications Sales Representative Relationship Specialty Start Date End Date Narayan Gilbert, ROLLER LEVELER.SHELLI GONZALES [address] [place] [address] PCP - General Family Practice 04/12/21 Telecommunications Sales Representative Relationship Specialty Start Date End Date Narayan Gilbert, ROLLER LEVELER.SHELLI GONZALES [address] [place] [address] PCP - General Family Practice 04/12/21 Telecommunications Sales Representative Relationship Specialty Start Date End Date Narayan Gilbert APRN.CHRISTIAN, DNP [address] [facility] [place] [address] PCP - General Family Practice 04/12/21 Telecommunications Sales Representative Relationship Specialty Start Date End Date Narayan Gilbert APRN.CHRISTIAN, DNP [address] [facility] [place] [address] PCP - General Family Practice 04/12/21 Telecommunications Sales Representative Relationship Specialty Start Date End Date Narayan Gilbert APRN.CHRISTIAN, DNP [address] [facility] [place] [address] PCP - General Family Practice 04/12/21 Telecommunications Sales Representative Relationship Specialty Start Date End Date Narayan Gilbert APRN.SHELLI GONZALES [address] [facility] [place] [address] PCP - General Family Practice 04/12/21 Telecommunications Sales Representative Relationship Specialty Start Date End Date Narayan Gilbert APRN.CHRISTIAN DNP [address] [facility] [place] [address] PCP - General Family Practice 04/12/21 Telecommunications Sales Representative Relationship Specialty Start Date End Date Narayan Gilbert APRN.SHELLI GONZALES [address] [facility] [place] [address] PCP - General Family Practice 04/12/21 Telecommunications Sales Representative Relationship Specialty Start Date End Date Narayan Gilbert APRN.CHRISTIAN DNP [address] [facility] [place] [address] PCP - General Family Practice 04/12/21 Telecommunications Sales Representative Relationship Specialty Start Date End Date Narayan Gilbert APRN.CHRISTIAN DNP [address] [facility] [place] [address] PCP - General Family Practice 04/12/21 Telecommunications Sales Representative Relationship Specialty Start Date End Date Blaz, Narayan, ROLLER LEVELER.CAN STACKER, DNP [address] [facility] [place] [address] PCP - General Family Medicine 04/12/21 Telecommunications Sales Representative Relationship Specialty Start Date End Date Narayan Gilbert APRN.CAN STACKER, DNP [address] [facility] [place] [address] PCP - General Family Medicine 04/12/21 Telecommunications Sales Representative Relationship Specialty Start Date End Date Narayan Gilbert APRN.CAN STACKER, DNP [address] [facility] [place] [address] PCP - General Family Medicine 04/12/21 Telecommunications Sales Representative Relationship Specialty Start Date End Date Taylor Del Real MD [address] [facility] [place] [address] PCP - General Family Medicine 09/28/22 Telecommunications Sales Representative Relationship Specialty Start Date End Date Taylor Del Real MD [address] [facility] [place] [address] PCP - General Family Medicine 09/28/22 Telecommunications Sales Representative Relationship Specialty Start Date End Date Taylor Del Real MD [address] [facility] [place] [address] PCP - General Family Medicine 09/28/22 Telecommunications Sales Representative Relationship Specialty Start Date End Date Taylor Del Real MD [address] [facility] [place] [address] PCP - General Family Medicine 09/28/22 Telecommunications Sales Representative Relationship Specialty Start Date End Date Taylor Del Real MD [address] [facility] [place] [address] PCP - General Family Medicine 09/28/22 Telecommunications Sales Representative Relationship Specialty Start Date End Date Giancarlo Castaneda PA-C [address] [facility] [place] [address] PCP - General Family Medicine 01/08/23 Telecommunications Sales Representative Relationship Specialty Start Date End Date Giancarlo Castaneda PA-C [address] [facility] [place] [address] PCP - General Family Medicine 01/08/23 Telecommunications Sales Representative Relationship Specialty Start Date End Date Giancarlo Castaneda PA-C [address] [facility] [place] [address] PCP - General Family Medicine 01/08/23 Telecommunications Sales Representative Relationship Specialty Start Date End Date Giancarlo Castaneda PA-C [address] [facility] [place] [address] PCP - General Family Medicine 01/08/23 Telecommunications Sales Representative Relationship Specialty Start Date End Date Giancarlo Castaneda PA-C [address] [facility] [place] [address] PCP - General Family Medicine 01/08/23 Telecommunications Sales Representative Relationship Specialty Start Date End Date Giancarlo Castaneda PA-C [address] [facility] [place] [address] PCP - General Family Medicine 01/08/23 Telecommunications Sales Representative Relationship Specialty Start Date End Date Giancarlo Castaneda PA-C [address] [facility] [place] [address] PCP - General Family Medicine 01/08/23 Telecommunications Sales Representative Relationship Specialty Start Date End Date Giancarlo Castaneda PA-C [address] [facility] [place] [address] PCP - General Family Medicine 01/08/23 Telecommunications Sales Representative Relationship Specialty Start Date End Date Giancarlo Castaneda PA-C [address] [facility] [place] [address] PCP - General Family Medicine 01/08/23 Telecommunications Sales Representative Relationship Specialty Start Date End Date Giancarlo Castaneda PA-C [address] [facility] [place] [address] PCP - General Family Medicine 01/08/23 Telecommunications Sales Representative Relationship Specialty Start Date End Date Giancarlo Castaneda PA-C [address] [facility] [place] [address] PCP - General Family Medicine 01/08/23 Telecommunications Sales Representative Relationship Specialty Start Date End Date Giancarlo Castaneda PA-C [address] [facility] [place] [address] PCP - General Family Medicine 01/08/23 Telecommunications Sales Representative Relationship Specialty Start Date End Date Giancarlo Castaneda PA-C [address] [facility] [place] [address] PCP - General Family Medicine 01/08/23 Telecommunications Sales Representative Relationship Specialty Start Date End Date Giancarlo Castaneda PA-C [address] [facility] [place] [address] PCP - General Family Medicine 01/08/23 Telecommunications Sales Representative Relationship Specialty Start Date End Date Giancarlo Csataneda PA-C [address] [facility] [place] [address] PCP - General Family Medicine 01/08/23 Telecommunications Sales Representative Relationship Specialty Start Date End Date Giancarlo Castaneda PA-C [address] [facility] [place] [address] PCP - General Family Medicine 01/08/23 Telecommunications Sales Representative Relationship Specialty Start Date End Date Giancarlo Castaneda PA-C [address] [facility] [place] [address] PCP - General Family Medicine 01/08/23 Telecommunications Sales Representative Relationship Specialty Start Date End Date Giancarlo Castaneda PA-C [address] [facility] [place] [address] PCP - General Family Medicine 01/08/23 Telecommunications Sales Representative Relationship Specialty Start Date End Date Giancarlo Castaneda PA-C [address] [facility] [place] [address] PCP - General Family Medicine 01/08/23 Telecommunications Sales Representative Relationship Specialty Start Date End Date Giancarlo Castaneda PA-C [address] [place] [address] PCP - General Family Medicine 01/08/23 Telecommunications Sales Representative Relationship Specialty Start Date End Date Giancarlo Castaneda PA-C [address] [place] [address] PCP - General Family Medicine 01/08/23 Telecommunications Sales Representative Relationship Specialty Start Date End Date Giancarlo Castaneda PA-C [address] [place] [address] PCP - General Family Medicine 01/08/23 Telecommunications Sales Representative Relationship Specialty Start Date End Date Giancarlo Castaneda PA-C [address] [place] [address] PCP - General Family Medicine 01/08/23 Telecommunications Sales Representative Relationship Specialty Start Date End Date Giancarlo Castaneda PA-C [address] [place] [address] PCP - General Family Medicine 01/08/23 Telecommunications Sales Representative Relationship Specialty Start Date End Date Giancarlo Castaneda PA-C [address] [place] [address] PCP - General Family Medicine 01/08/23 Telecommunications Sales Representative Relationship Specialty Start Date End Date Giancarlo Castaneda PA-C [address] [facility] [place] [address] PCP - General Family Medicine 01/08/23 Telecommunications Sales Representative Relationship Specialty Start Date End Date Giancarlo Castaneda PA-C [address] [facility] [place] [address] PCP - General Family Medicine 01/08/23 Telecommunications Sales Representative Relationship Specialty Start Date End Date Giancarlo Castaneda PA-C [address] [facility] [place] [address] PCP - General Family Medicine 01/08/23 Telecommunications Sales Representative Relationship Specialty Start Date End Date Giancarlo Castaneda PA-C [address] [place] [address] PCP - General Family Medicine 01/08/23 Telecommunications Sales Representative Relationship Specialty Start Date End Date Giancarlo Castaneda PA-C [address] [place] [address] PCP - General Family Medicine 01/08/23 FOR RECORDS PERTAINING TO PATIENTS WHO ARE OR HAVE BEEN ENROLLED IN A CHEMICAL DEPENDENCY/SUBSTANCEABUSE PROGRAM, SOME INFORMATION MAY BE OMITTED. This clinical summary was aggregated from multiple sources. Caution should be exercised in using it in the provision of clinical care. This summary normalizes information from multiple sources, and as a consequence, information in this document may materially change the coding, format and clinical context of patient data. In addition, data may be omitted in some cases. CLINICAL DECISIONS SHOULD BE BASED ON THE PRIMARY CLINICAL RECORDS. [facility] [employer] [facility]. provides no warranty or guarantee of the accuracy or completeness of information in this document.
[2023-11-11 07:37] VITALS: BP 134/57; PULSE 61; RESP 99; TEMP 36.6; O2SAT 18; BMI 23.1
[2023-11-11] MEDS: Lactated Ringers 1,000 ML 15 ML IV (07:47)
--- NOTE | 2023-11-11 09:20 | RAD_ITS ---
PROCEDURE: Bilateral L4 S1 nerve block. DATE OF EXAMINATION: November 11, 2023. INDICATION: Female, 82 years old. Chronic low back pain. FLUOROSCOPY TIME (if supplied): (16 second) minutes/seconds. 3.19 mGy. 6 fluoroscopic images were submitted. RAD/L/S Spine Min 4 Views IMPRESSION: Intraoperative imaging provided for bilateral L4 S1 facet joint block. Electronically Signed: Rancho Simpson MD at 15:29 EST ,
[2023-11-11] MEDS: Bupivacaine 0.25% 30 ML Vial (09:22)
[2023-11-11] MEDS: MethylPREDNISolone Acetate 80 MG/ML Vial (09:22)
[2023-11-11] MEDS: Lidocaine 1% (5 ml sdv) 5 ML Vial (09:23)
--- NOTE | 2023-11-11 09:27 | PCM.OPRPT ---
Report of Operation Date of Procedure: 11/11/23 Description of Surgical Findings:: Preoperative diagnosis: Lumbosacral spondylosis, lumbosacral degenerative disc disease, lumbar facet arthropathy Postoperative diagnosis : Lumbosacral spondylosis, lumbosacral degenerative disc disease, lumbar facet arthropathy PROCEDURE PERFORMED: Bilateral lumbar medial branch block at L4, L5, and S1. ANESTHESIA: MAC. BLOOD LOSS: Minimal. COMPLICATIONS: None. DESCRIPTION OF PROCEDURE: History and physical of today was reviewed. Risks and benefits of the procedure were explained. The patient understood and agreed to proceed. Informed consent was obtained. IV inserted per routine protocol. The patient was taken to the operating room and placed in the prone position with a pillow positioned underneath the abdomen. The lower back area was prepped and draped in a sterile fashion using iodine x3. Under fluoroscopy guidance on AP view, the L4 through S1 vertebral bodies were visualized. The skin and subcutaneous tissue was anesthetized with approximately 5 mL of 1% lidocaine using a 25-gauge regular needle. Under direct visualization with fluoroscopy, at approximately 25-degree angle, starting on the left L4, ending on the right L4, passing through the L5 and S1 bilaterally, using a 22-gauge 3-1/2-inch spinal needle, the needle was advanced via the skin. The tip of the needle was maneuvered and directed towards the superior medial gutter of the transverse process at the vicinity of the medial branch. Once tip of the needle was in contact with the bone, the needle was pulled approximately 2 mm off the bone. After negative aspiration for blood or CSF and confirmation on AP, oblique as well as lateral view, a total of 12 mL of preservative-free 0.25% Marcaine with 80 mg of Depo-Medrol was injected in divided doses between those six levels. The needles were then removed intact. The patient experienced no sign or symptoms of intrathecal or intravascular injection. The patient experienced no paresthesia. The procedure was completed without any apparent difficulty or any complications. The patient appeared to tolerate it well. ASSESSMENT AND PLAN: This is an 82-year-old female with lumbosacral spondylosis, lumbosacral degenerative disc disease, lumbar facet arthropathy status post bilateral lumbar medial branch block at L4-5, L5-S1, patient will continue her current medications, patient will follow up in approximately 2 weeks for reevaluation.
[2023-11-11 09:30] VITALS: BP 114/80; BP 134/57; PULSE 64; RESP 16; TEMP 36.3; O2SAT 98
[2023-11-11 09:35] VITALS: BP 134/57; BP 134/69; PULSE 60; RESP 16; O2SAT 96
[2023-11-11 09:40] VITALS: BP 133/52; BP 134/57; PULSE 59; RESP 16; TEMP 36.8; O2SAT 98
[2023-11-11 10:04] VITALS: BP 134/57
== END 2023-11-11 10:15 | disposition home or self-care (01) ==
LOC: SDC 07:14 → AC 07:16
PROVIDERS: PCP Physician Assistant; Referring Provider Anesthesiology Pain Medicine; Visit Provider Anesthesiology Pain Medicine
PROC: 3E0S3BZ Introduction of Anesthetic Agent into Epidural Space, Percutaneous Approach (ICD-10-PCS; CPT 62322; principal; 2023-11-11 09:15)
DX: M47.817 Spondylosis without myelopathy or radiculopathy, lumbosacral region (principal); M46.96 Unspecified inflammatory spondylopathy, lumbar region; M51.37 Other intervertebral disc degeneration, lumbosacral region; F41.9 Anxiety disorder, unspecified; F32.9 Major depressive disorder, single episode, unspecified; K21.9 Gastro-esophageal reflux disease without esophagitis; E78.00 Pure hypercholesterolemia, unspecified; I10 Essential (primary) hypertension; Z79.899 Other long term (current) drug therapy; Z79.82 Long term (current) use of aspirin
CPT/HCPCS: 64493; 64494; 64483; 72110; J7120

== ENCOUNTER 2024-04-13 06:30 | Day surgery (SDC) | payer MEDICARE, SELFPAY ==
[2024-04-13] VITALS (7 sets, daily range): BP systolic 134–184; BP diastolic 57–93; PULSE 60–66; RESP 16; TEMP 36.5–37.3; O2SAT 100; BMI 22.6
[2024-04-13] MEDS: Lactated Ringers 1,000 ML 15 ML IV (07:03)
--- NOTE | 2024-04-13 07:32 | PCM.PRE.AN2 ---
ASA Classification* ASA Classification ASA Classification: 3 Assessment & Plan Anesthesia* Anesthesia Assessment Anesthesia Assessment: Discussed sedation and/or anesthesia options, risks, benefits, and alternatives with patient/parents/legal guardian/POA. Questions invited. The patient/parents/legal guardian/POA seems to understand and agrees to proceed with anesthesia plan. Reviewed the physical assessment, medical history, allergy history and patient home medications list prior to surgery/procedure/anesthetic and documented any changes. Performed airway and anesthesia risk assessments. 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 When Was Last Pacemaker Check QUESTION #4 FULL TEXT: You/Your Family Experience fever (hyperthermia) with Anesthesia Last Oral Intake Last Oral intake: Last Oral Intake NPO since Meds taken in AM with sips of water? Meds patient instructed to take am of surgery PONV PONV - windows migration technician: PONV - windows migration technician Female HX of Motion Sickness HX of N/V After Surgery Non-Smoker Duration of Surgery greater than 60 minutes Number of Risk Factors PONV Score Height & Weight Height & Weight: Anesthesia: Height & Weight Height 5 ft 7 in 04/13/24 06:58 Weight: 65.4 kg 04/13/24 06:58 Body Mass Index (BMI) 22.6 04/13/24 06:58 Respiratory Assessment Respiratory Assessment - windows migration technician: Respiratory Tract Infection Hx - windows migration technician Hx Respiratory Tract Infection No 09/13/23 11:33 STOP Sleep Apnea STOP Sleep Apnea - windows migration technician: STOP Sleep Apnea - windows migration technician Hx Hypertension Yes: CONTROLLED ON MED 09/13/23 11:33 Hx Sleep Apnea No 11/11/23 09:40 CPAP No 11/11/23 09:30 BIPAP No 11/17/23 11:33 Do you snore loudly (louder than talking or can be heard Do you often feel tired/ fatigued/ sleepy during daytime? Has anyone observed you stop breathing during sleep? STOP Results QUESTION #5 FULL TEXT : Do you snore loudly (louder than talking or can be heard through closed doors)? 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 Specify any problems Hx of Preganancy in last 3 Months Nurse Filling Out Transfusion & Questions: Date: Time: Patient unable to answer at this time (ie. confused, unrespo /Reproduction History /Reproductive History - windows migration technician: /Reproductive Hx- windows migration technician Hx Now Gestational Age (in weeks): EDC: Hx Hx Para Hx Section SAB No 09/13/23 11:33 Active Medications Active Medications: Current Medications Generic Name Dose Route Start Last Admin Trade Name Freq PRN Reason Stop Dose Admin Lactated Ringer's 1,000 mls @ 15 mls/hr 04/13/24 07:00 04/13/24 07:03 IV 15 mls/hr .Q48H CRYSTAL Administration Anesthesia Focused Assessment* Temperature: 97.7 F Pulse Rate: 62 Blood Pressure: 184/65 Respiratory Rate: 16 Pulse Ox: 100 Airway Assessment Mouth opens: >3 cm Mallampati Score: II Focused Labs Anesthesia Preop lab: CBC WBC 8.2 K/mm3 (4.4-11.0) 08/19/23 15:42 RBC 3.87 M/mm3 (4.2-5.4) L 08/19/23 15:42 Hgb 12.2 g/dL (12.0-15.0) 08/19/23 15:42 Hct 36.7 % (37-47) L 08/19/23 15:42 Plt Count 323 K/mm3 (150-450) 08/19/23 15:42 CHEMISTRY Potassium 4.3 mmol/L (3.5-5.1) 08/20/23 06:07 Sodium 130 mmol/L (136-145) L 08/20/23 06:07 Magnesium 1.5 mg/dL (1.6-2.6) L 08/19/23 18:40 BUN 16 mg/dL (7-18) 08/20/23 06:07 Creatinine 0.98 mg/dL (0.55-1.02) 08/20/23 06:07 Glucose 94 mg/dL (74-106) 08/20/23 06:07 TSH 1.46 uIU/mL (0.358-3.74) 08/20/23 06:07 COAG PT 12.2 SECONDS (11.7-14.9) 06/14/21 11:27 Review of Systems (Anesthesia) ROS Narrative System reviewed and no additional complaints, except as documented. [facility] Medical History Post-menopausal Colitis Shortness of breath on exertion History of irregular heartbeat History of echocardiogram Chest pain Rheumatoid arthritis Osteoporosis Kidney disease Hepatitis Lupus (systemic lupus erythematosus) MDD (major depressive disorder), recurrent, in partial remission Insomnia Wears hearing aid Cancer Anxiety History of steroid therapy Arthritis Anemia High cholesterol Back pain Syncope Migraine headache Lupus Ulcerative colitis Gastric reflux Former smoker History of pain when walking History of edema History of stress test Hypertension Cardiology follow-up encounter Nonobstructive atherosclerosis of coronary artery Fracture of proximal phalanx of left little finger Nonrheumatic mitral (valve) prolapse Collagenous colitis Depression Dyslipidemia Benign essential hypertension Home Medications ?Medication ?Instructions ?Recorded ?Last Taken ?Type omeprazole 20 mg capsule,delayed 20 mg PO BID gerd/UC 03/20/14 04/13/24 History release bupropion HCl 300 mg 24 hr tablet, 300 mg PO DAILY depression 08/10/16 08/19/23 History extended release sertraline 100 mg tablet 100 mg PO DAILY 07/05/20 08/19/23 History prednisone 10 mg tablet 10 mg PO DAILY PRN LUPUS 02/27/22 Unknown History gabapentin 100 mg capsule 100 mg PO TID PRN pain 05/21/22 08/19/23 History methotrexate sodium 2.5 mg tablet 6 tab PO .weekly 05/21/22 08/19/23 History acetaminophen 325 mg tablet 1,000 mg PO PRN Pain 08/09/22 Unknown History leucovorin calcium 15 mg tablet 15 mg PO TU 08/09/22 08/13/23 History potassium chloride 10 mEq 10 meq PO BID 08/09/22 08/19/23 History capsule,extended release amlodipine 5 mg tablet 5 mg PO DAILY bp #90 tabs 11/08/22 04/13/24 Rx atorvastatin 20 mg tablet 20 mg PO QHS 02/04/23 08/18/23 History lisinopril 20 mg tablet 20 mg PO DAILY #90 tabs 08/12/23 04/13/24 Rx ergocalciferol (vitamin D2) 1,250 1,250 mcg PO QWEEK 09/13/23 Unknown History mcg (50,000 unit) capsule aspirin 81 mg tablet,delayed 81 mg PO BREAKFAST #90 tabs 09/27/23 11/07/23 Rx release clonazepam 0.5 mg tablet 0.5 mg PO QHS #30 tabs 01/09/24 Unknown Rx carvedilol 3.125 mg tablet 3.125 mg PO BID heart #180 tabs 03/27/24 04/13/24 Rx Allergy/AdvReac Type Severity Reaction Status Date / Time hydrocodone (From Vicodin) Allergy Intermediate Itching Verified 04/13/24 06:56 adhesive tape Allergy Rash Verified 04/13/24 06:56 aripiprazole (From Abilify) Allergy mental Verified 04/13/24 06:56 status change atorvastatin calcium (From Allergy Unknown Verified 04/13/24 06:56 Lipitor) Beta-Blockers Allergy Unknown Verified 04/13/24 06:56 (Beta-Adrenergic Bloc cefaclor (From Ceclor) Allergy Unknown Verified 04/13/24 06:56 clarithromycin (From Biaxin) Allergy unknown Verified 04/13/24 06:56 erythromycin base Allergy NEEDS Verified 04/13/24 06:56 FOLLOW-UP guaifenesin (From Entex LA) Allergy unknown Verified 04/13/24 06:56 phenylephrine (From Entex LA) Allergy unknown Verified 04/13/24 06:56 phenylpropanolamine (From Allergy unknown Verified 04/13/24 06:56 Entex LA) Sulfa (Sulfonamide Allergy Hives Verified 04/13/24 06:56 Antibiotics) Tetracyclines Allergy Unknown Verified 04/13/24 06:56 oxycodone AdvReac NEEDS Verified 04/13/24 06:56 FOLLOW-UP propoxyphene (From Darvon) AdvReac Nausea Verified 04/13/24 06:56 Family History Father CAD (coronary artery disease) Myocardial infarction Hypertension Mother Hypertension Myocardial infarction CAD (coronary artery disease) Daughter Depression Diabetes Seizures Surgical History Hx of surgical procedure Hx of colonoscopy Hx of right cataract extraction Hx of left cataract extraction Hx of cholecystectomy Hx of right knee surgery History of left heart catheterization (11/01/14) H/O arthroscopic knee surgery History of tubal ligation History of tonsillectomy History of hysterectomy Social History Smoking Status: Former smoker how long ago did patient quit smokin + years ago alcohol intake: current alcohol intake frequency: holidays/special occasions only Alcohol type: wine substance use type: does not use caffeine: Yes Type: carbonated beverages Number of servings: 6
--- NOTE | 2024-04-13 08:26 | RAD_ITS ---
PROCEDURE: Left L4-S1 radiofrequency ablation. DATE OF EXAMINATION: April 13, 2024. INDICATION: Female, 83 years old. Chronic low back pain. FLUOROSCOPY TIME (if supplied): (16 seconds) minutes/seconds. 3.73 mGy.9 images were submitted. RAD/Lumbar Spine 2 or 3 Views IMPRESSION: Intraoperative images are provided for left L4-S1 radiofrequency ablation. Electronically Signed: Rancho Simpson MD at 15:34 EDT ,
[2024-04-13] MEDS: Lidocaine 1% (20 ml mdv) 20 ML Vial (08:37)
[2024-04-13] MEDS: MethylPREDNISolone Acetate 40 MG/ML Vial (08:38)
--- NOTE | 2024-04-13 08:54 | PCM.POST.ANE ---
Anesthesia: Postop Eval I Current Vital Signs Temperature: 99.2 F Pulse Rate: 66 Blood Pressure: 156/68 Respiratory Rate: 16 Pulse Ox: 100 Oxygen Delivery Method: Room Air Assessment Airway patent: Yes Spontaneous unlabored respirations: Yes Mental status: Awake and Calm nausea: No Vomiting: No Anesthesia Complication: No Fluid Hydration Crystalloid volume administer (ml): 200 Total IV fluid infused: 200 Progress Note Anesthesia document: Postop Eval 1 completed: Yes
--- NOTE | 2024-04-13 09:15 | POSTOPAN2_ITS ---
Anesthesia Postop Eval I Sum Postop Eval Completion status Anesthesia document: Postop Eval 1 completed: Yes Anesthesia Postop Eval I Summary Anesthesia Postop Eval I Summary: Anesthesia Postop Eval I: Assessment Summary Airway patent Yes 04/13/24 08:55 PHLEBOTOMY PROGRAM COORDINATOR.[email or web address] Spontaneous unlabored Yes 04/13/24 08:55 PHLEBOTOMY PROGRAM COORDINATOR.[email or web address] respirations Mental status Awake,Calm 04/13/24 08:55 PHLEBOTOMY PROGRAM COORDINATOR.[email or web address] nausea No 04/13/24 08:55 PHLEBOTOMY PROGRAM COORDINATOR.[email or web address] Vomiting No 04/13/24 08:55 PHLEBOTOMY PROGRAM COORDINATOR.[email or web address] Anesthesia Postop Eval I: Fluid Summary Crystalloid volume administer 200 04/13/24 08:55 PHLEBOTOMY PROGRAM COORDINATOR.[email or web address] (ml) Colloids volume administered ( ml) Blood Product volume administered (ml) Total IV fluid infused 200 04/13/24 08:55 PHLEBOTOMY PROGRAM COORDINATOR.[email or web address] Anesthesia Postop Eval I: Summary Notes Anesthesia Complication No 04/13/24 08:55 PHLEBOTOMY PROGRAM COORDINATOR.[email or web address] Anesthesia Complication Comment: Post-operative progress note Anesthesia: Postop Eval II Evaluation Mental status: Awake Pain Level: 0 nausea: No Vomiting: No
--- NOTE | 2024-04-13 09:15 | PCM.POSTANE2 ---
Anesthesia Postop Eval I Sum Postop Eval Completion status Anesthesia document: Postop Eval 1 completed: Yes Anesthesia Postop Eval I Summary Anesthesia Postop Eval I Summary: Anesthesia Postop Eval I: Assessment Summary Airway patent Yes 04/13/24 08:55 STUDIO OPERATOR.[email or web address] Spontaneous unlabored Yes 04/13/24 08:55 STUDIO OPERATOR.[email or web address] respirations Mental status Awake,Calm 04/13/24 08:55 STUDIO OPERATOR.[email or web address] nausea No 04/13/24 08:55 STUDIO OPERATOR.[email or web address] Vomiting No 04/13/24 08:55 STUDIO OPERATOR.[email or web address] Anesthesia Postop Eval I: Fluid Summary Crystalloid volume administer 200 04/13/24 08:55 STUDIO OPERATOR.[email or web address] (ml) Colloids volume administered ( ml) Blood Product volume administered (ml) Total IV fluid infused 200 04/13/24 08:55 STUDIO OPERATOR.[email or web address] Anesthesia Postop Eval I: Summary Notes Anesthesia Complication No 04/13/24 08:55 STUDIO OPERATOR.[email or web address] Anesthesia Complication Comment: Post-operative progress note Anesthesia: Postop Eval II Evaluation Mental status: Awake Pain Level: 0 nausea: No Vomiting: No
--- NOTE | 2024-04-13 09:22 | PCM.OPRPT ---
Report of Operation Date of Procedure: 04/13/24 Pre-Operative Diagnosis: Lumbosacral spondylosis, lumbosacral degenerative disc disease, lumbar facet arthropathy Post-Operative Diagnosis: Lumbosacral spondylosis, lumbosacral degenerative disc disease, lumbar facet arthropathy Surgery/Procedure Performed:: Left-sided lumbar radiofrequency ablation of the medial branch L4, L5, S1 Type of Anesthesia: MAC Estimated Blood Loss (mL): Minimal Description of Procedure: History and physical today was reviewed. Risks and benefits of procedure explained. The patient understood, agreed to the procedure and informed consent was obtained. IV inserted per routine protocol. The patient was taken to the operating room, placed in the prone position with a pillow positioned underneath the abdomen. The left side of the lower back was prepped and draped in a sterile fashion using iodine x 3. Under fluoroscopy guidance, on an oblique view, the L3 through S1 vertebral bodies were visualized. The skin and subcutaneous tissue was anesthetized with approximately 10 mL of 1% lidocaine using a 25-gauge regular needle. Under direct visualization with fluoroscopy at approximately 25-degree angle, starting on the left L3, ending on the left S1 passing through the L4-L5 using a 20-gauge 15 cm with a 10 mm curved active tip radiofrequency ablation needle the needle passed through the skin. The tip of the needle was maneuvered and directed towards the superior and medial gutter of the transverse process at the vicinity of the medial branch. Once the tip of the needle was in contact with the bone, the needle pulled approximately 2 mm up the bone. The stylet of each needle was then removed. After negative aspiration of blood with CSF and confirmation of AP as well as oblique view, radiofrequency ablation probe was then inserted at each level. Impedance was then recorded at L3 to be 249, at L4 225, at L5 260, at S1 312 ohm. Motor-evoked potential was then initiated to 1.5 volt without any motor response at each corresponding level. The probe was then removed intact and a total of 6 mL preservative-free 1% lidocaine was injected in divided doses between those 4 levels after negative aspiration of blood with CSF. The radiofrequency ablation probe was then reinserted after confirmation of AP, oblique as well as lateral view. Radiofrequency ablation was then initiated to 80 degrees Celsius for 90 seconds at each level. Once concluded, the probe was then removed intact and a total of 6 mL of preservative-free 0.25% Marcaine with 40 mg Depo-Medrol was injected in divided doses between those 4 levels. The needles were then removed intact. The patient experienced no signs or symptoms of intrathecal, intravascular injection. The patient experienced no paraesthesia. The procedure was completed without any apparent difficulty, any complication. The patient appeared to tolerate well. Sensory as well as motor exam was unchanged from prior to procedure. ASSESSMENT AND PLAN: This is an 83-year-old female with lumbosacral spondylosis, lumbosacral degenerative disc disease, lumbar facet arthropathy, status post left-sided lumbar radiofrequency ablation of the medial branch L4 through S1. The patient will continue her current medications. The patient will follow up in approximately 2 weeks for reevaluation. Complications None
== END 2024-04-13 09:37 | disposition home or self-care (01) ==
LOC: SDC 06:36 → AC 06:37
PROVIDERS: PCP Physician Assistant; Referring Provider Anesthesiology Pain Medicine; Visit Provider Anesthesiology Pain Medicine
PROC: (CPT 64636; principal; 2024-04-13 07:55)
DX: M47.817 Spondylosis without myelopathy or radiculopathy, lumbosacral region (principal); M51.37 Other intervertebral disc degeneration, lumbosacral region; M46.96 Unspecified inflammatory spondylopathy, lumbar region; K21.9 Gastro-esophageal reflux disease without esophagitis; F32.A Depression, unspecified; F41.9 Anxiety disorder, unspecified; I10 Essential (primary) hypertension; E78.00 Pure hypercholesterolemia, unspecified; Z79.82 Long term (current) use of aspirin; Z79.899 Other long term (current) drug therapy; Z87.891 Personal history of nicotine dependence
CPT/HCPCS: 64636; 64635; 01992; 72100; 76000; J7120

== ENCOUNTER 2024-12-30 16:54 | Observation (INO) | payer MEDICARE, SELFPAY ==
[2024-12-30] VITALS (9 sets, daily range): BP systolic 157–196; BP diastolic 55–83; PULSE 54–67; RESP 10–16; TEMP 37.3–37.5; O2SAT 95–98; BMI 26.4; BMI 21.5
--- NOTE | 2024-12-30 17:23 | CT_ITS ---
PROCEDURE: CTA HEAD AND NECK W/ CONTRAST REASON FOR EXAM: Dizziness, headaches, word salad TECHNIQUE: CTA imaging of the head and neck from the aortic arch to the skull vertex with intravenous contrast. 3D reconstructions. CONTRAST: COMPARISON: None. # of known CTs in the past 12 months: 0 # of known Cardiac Nuclear Medicine Studies in the past 12 months: 0 FINDINGS: Aortic Arch: Normal size and branching pattern. No significant atherosclerotic plaque. Brachiocephalic and Subclavians: Unremarkable RIGHT Carotid: Right CCA: Mild calcified and soft plaque. Right ICA: Mild calcified and soft plaque. Maximum stenosis (NASCET): 0-49 % Right ECA: Unremarkable. LEFT Carotid: Left CCA: Mild calcified and soft plaque. Left ICA: Mild calcified and soft plaque. Maximum stenosis (NASCET): 0-49 % Left ECA: Unremarkable. Vertebrals: Codominant. Arise from the subclavians. Both vertebrals form the basilar. RIGHT Vertebral: Unremarkable. LEFT Vertebral: Unremarkable. No intracranial aneurysms or large vascular malformations are identified. Anterior cerebral arteries: Unremarkable. Middle cerebral arteries: Unremarkable. Basilar artery: Unremarkable. Posterior cerebral arteries: Unremarkable. Other major branches of the posterior circulation: Unremarkable. Major venous structures: Unremarkable. Other findings: No lymphadenopathy. Lung apices are clear. Bones are unremarkable. CT/CTA Head AND Neck W/ Contrast IMPRESSION: Mild atherosclerotic changes with no hemodynamically significant stenosis in th e arteries of the head and neck. One or more dose reduction techniques were used (e.g., Automated exposure contr ol, adjustment of the mA and/or kV according to patient size, use of iterative reconstruction technique). Reading Location: [facility]
--- NOTE | 2024-12-30 17:31 | ED.VIS.STROK ---
HPI History of Present Illness Chief Complaint: Dizziness Informant: patient and family Narrative Narrative: Presents to the ED after being called by her PCP office to go the emergency department for stroke concerns. Patient seen yesterday in the office. Patient reports this past Saturday while driving her daughter she noted trouble getting her words out did not make sense and lasted all day. She was dizzy with room spinning and having headaches. Mild symptoms over the weekend recurrent symptoms this past Saturday. No stroke history. Intermittent dizziness at home. She is on baby aspirin. Prior similar symptoms: No PFSH PFSH Medical History Post-menopausal Colitis Shortness of breath on exertion History of irregular heartbeat History of echocardiogram Chest pain Rheumatoid arthritis Osteoporosis Kidney disease Hepatitis Lupus (systemic lupus erythematosus) MDD (major depressive disorder), recurrent, in partial remission Insomnia Wears hearing aid Cancer Anxiety History of steroid therapy Arthritis Anemia High cholesterol Back pain Syncope Migraine headache Lupus Ulcerative colitis Gastric reflux Former smoker History of pain when walking History of edema History of stress test Hypertension Cardiology follow-up encounter Nonobstructive atherosclerosis of coronary artery Fracture of proximal phalanx of left little finger Nonrheumatic mitral (valve) prolapse Collagenous colitis Depression Dyslipidemia Benign essential hypertension Home Medications ?Medication ?Instructions ?Recorded ?Last Taken ?Type omeprazole 20 mg capsule,delayed 20 mg PO BID gerd/UC 03/20/14 04/13/24 History release acetaminophen 325 mg tablet 1,000 mg PO PRN Pain 08/09/22 Unknown History amlodipine 5 mg tablet 5 mg PO DAILY bp #90 tabs 11/08/22 04/13/24 Rx atorvastatin 20 mg tablet 20 mg PO QHS 02/04/23 08/18/23 History carvedilol 3.125 mg tablet 3.125 mg PO BID heart #180 tabs 03/27/24 04/13/24 Rx aspirin 81 mg tablet,delayed 81 mg PO BREAKFAST #90 tabs 09/21/24 Unknown Rx release cholecalciferol (vitamin D3) 1,250 1,250 mcg PO QWEEK 09/22/24 Unknown History mcg (50,000 unit) capsule lisinopril 20 mg tablet 20 mg PO DAILY #90 tabs 11/02/24 Unknown Rx clonazepam 0.5 mg tablet 0.5 mg PO QHS #30 tabs 12/23/24 Unknown Rx sertraline 50 mg tablet 50 mg PO DAILY 12/30/24 Unknown History triamcinolone acetonide 55 mcg 2 spray intranasal DAILY 12/30/24 Unknown History nasal spray aerosol Allergy/AdvReac Type Severity Reaction Status Date / Time hydrocodone (From Vicodin) Allergy Intermediate Itching Verified 09/22/24 15:30 adhesive tape Allergy Rash Verified 09/22/24 15:30 aripiprazole (From Abilify) Allergy mental Verified 09/22/24 15:30 status change atorvastatin calcium (From Allergy Unknown Verified 09/22/24 15:30 Lipitor) Beta-Blockers Allergy Unknown Verified 09/22/24 15:30 (Beta-Adrenergic Bloc cefaclor (From Ceclor) Allergy Unknown Verified 09/22/24 15:30 clarithromycin (From Biaxin) Allergy unknown Verified 09/22/24 15:30 erythromycin base Allergy NEEDS Verified 09/22/24 15:30 FOLLOW-UP guaifenesin (From Entex [place]) Allergy unknown Verified 09/22/24 15:30 phenylephrine (From Entex LA) Allergy unknown Verified 09/22/24 15:30 phenylpropanolamine (From Allergy unknown Verified 09/22/24 15:30 Entex LA) Sulfa (Sulfonamide Allergy Hives Verified 09/22/24 15:30 Antibiotics) Tetracyclines Allergy Unknown Verified 09/22/24 15:30 oxycodone AdvReac NEEDS Verified 09/22/24 15:30 FOLLOW-UP propoxyphene (From Darvon) AdvReac Nausea Verified 09/22/24 15:30 Family History Father CAD (coronary artery disease) Myocardial infarction Hypertension Mother Hypertension Myocardial infarction CAD (coronary artery disease) Daughter Depression Diabetes Seizures Surgical History Hx of surgical procedure Hx of colonoscopy Hx of right cataract extraction Hx of left cataract extraction Hx of cholecystectomy Hx of right knee surgery History of left heart catheterization (11/01/14) H/O arthroscopic knee surgery History of tubal ligation History of tonsillectomy History of hysterectomy Social History Smoking Status: Former smoker how long ago did patient quit smokin + years ago alcohol intake: current alcohol intake frequency: holidays/special occasions only Alcohol type: wine substance use type: does not use caffeine: Yes Type: carbonated beverages Number of servings: 6 ROS ROS ED Constitutional Constitutional ED: Denies chills, fever(s) or sweats ENT ENT ED: Denies sore throat Cardiovascular Cardiovascular: Denies chest pain, leg edema, palpitations or racing heartbeat Respiratory/Chest Respiratory/Chest: Denies cough, dyspnea or dyspnea on exertion Gastrointestinal Gastrointestinal: Denies abdominal pain, diarrhea, nausea or vomiting Genitourinary Genitourinary ED: Denies dysuria, hematuria or urinary frequency Musculoskeletal Musculoskeletal: Denies back pain, extremity pain or neck pain Integumentary Denies rash or wounds Neurologic Neurologic: Reports headache(s) and other Details: Dizziness, word salad ; Denies paresthesias or weakness EXAM Physical Exam Const Vital Signs: 12/30/24 16:55 12/30/24 17:23 12/30/24 17:39 Temperature 99.5 F H Temperature Source Oral Pulse Rate 67 56 L Respiratory Rate 10 L 16 Blood Pressure 196/76 H 163/82 H Blood Pressure Mean 116 109 Pulse Ox 98 95 96 Oxygen Delivery Method Room Air Room Air Room Air 12/30/24 17:53 12/30/24 19:00 12/30/24 19:48 Temperature Temperature Source Pulse Rate 56 L 54 L 60 Respiratory Rate 16 16 14 Blood Pressure 168/66 H 157/55 H 173/73 H Blood Pressure Mean 100 89 106 Pulse Ox 97 96 96 Oxygen Delivery Method Room Air Room Air Room Air 12/30/24 19:49 Temperature 99.2 F H Temperature Source Pulse Rate 56 L Respiratory Rate 14 Blood Pressure 173/73 H Blood Pressure Mean 106 Pulse Ox 97 Oxygen Delivery Method Positive well nourished and well developed General Appearance ED: well developed and NAD HEENT Reports moist mucous membranes normocephalic and atraumatic Eyes General Eye ED: Yes normal appearance of both eyes Neck full ROM Chest Wall Chest: Negative for tenderness Resp normal respiratory effort and normal air movement Effort and Inspection: symmetric chest movement; Negative for respiratory distress Cardio regular rate, regular rhythm and no murmurs Peripheral Pulses: pulses 2+ throughout GI normal to inspection, nondistended, normoactive bowel sounds and non-tender Palpation: Negative for guarding or rebound tenderness present Extremity normal to inspection General Extremety ED: Negative for edema or tenderness General Extremity: Negative for edema Neuro oriented x3, CN's II-XII intact bilaterally and no sensory deficits noted Neuro Narrative: Powell-Hallpike negative bilaterally. NIH of 0. Sensorium / Orientation: awake and alert Skin no rashes or lesions noted and no wounds NIHSS NIHSS Initial: 1a Level of Consciousness: 0 1b LOC Questions (Score 2 if aphasic/stupor): 0 1c LOC Commands (Only score 1st attempt): 0 2 Best Gaze (If aphasic, use reflexive mvmts.): 0 3 Visual: 0 4 Facial Palsy: 0 5 Motor Arm Right (UN = amputation/fusion): 0 5 Motor Arm Left: 0 6 Motor Leg Right: 0 6 Motor Leg Left: 0 7 Limb ataxia (Only + if out of proportion): 0 8 Sensory (Aphasia/stupor=0 or 1, coma=2): 0 9 Best Language: 0 10 Dysarthria (mute, coma=2, intubated=UN): 0 11 Extinction and Inattention (only scored if +): 0 Total Score: 0 MDM MDM MDM Narrative Medical decision making narrative: Interventions / MDM: Differential diagnosis: TIA, word salad, headache, dizziness Diagnosis considered but do not suspect: Intracranial hemorrhage however CT negative. My EKG interpretation: Sinus rate of 58, no ST or T wave changes PVCs noted. Imaging independently reviewed and interpreted by myself: CT angiogram head and neck: Mild atherosclerotic disease. External documents reviewed: N/A Test considered but not ordered:N/A ED course: Patient NIH currently 0. Powell-Hallpike negative. Presented recurrent word salad, headache and dizziness. No stroke history. Symptoms started Saturday outside the window for any TNK. Workup initiated with labs EKG CT angiogram head and neck. 1940: Remains symptom-free NIH of [address] scans negative. EKG sinus rhythm. Labs are stable. Due to recurrent symptoms, will discuss with hospitalist service for admission. I spoke with hospitalist Dr. Pena for admission to PCU. Re-evaluation: stable Disposition discussed with patient/family/significant other: Patient and family Case discussed with consulting clinician: Hospitalist This note was generated with Livestream dictation software. It may contain incorrect words, spelling, and punctuation that were not noted in checking the note before signing. Lab Data Attestation: I reviewed the patient's lab results. Labs: Laboratory Results - last 24 hr 12/30/24 12/30/24 16:30 19:40 WBC 9.8 RBC 4.21 Hgb 12.0 Hct 37.5 MCV 89.1 MCH 28.5 MCHC 32.0 RDW Std Deviation 43.1 RDW Coeff of Hiwot 13.2 Plt Count 287 MPV 11.2 Immature Gran % (Auto) 0.300 Neut % (Auto) 65.4 Lymph % (Auto) 22.6 Island % (Auto) 7.7 Eos % (Auto) 3.8 Baso % (Auto) 0.2 Absolute Neuts (auto) 6.4 Absolute Lymphs (auto) 2.21 Nucleated RBC % 0 PT 12.2 INR 0.9 APTT 27.2 Sodium 142 Potassium 3.1 L Chloride 107 Carbon Dioxide 24.9 Anion Gap 10 BUN 22 H Creatinine 0.97 Estim Creat Clear Calc 46.69 L Est GFR (MDRD) Non-Af 59 L BUN/Creatinine Ratio 22.9 H Glucose 111 H Calcium 9.8 Troponin T High Sens 14 Troponin T Hi Sens 2 Hr 14 Troponin T Hi Sens 2Hr Delta 0 Radiography Diagnostic Testing: Clinical Impression(s) from Imaging Studies Head/Neck CTA 12/30/24 17:23 IMPRESSION: Mild atherosclerotic changes with no hemodynamically significant stenosis in the arteries of the head and neck. One or more dose reduction techniques were used (e.g., Automated exposure control, adjustment of the mA and/or kV according to patient size, use of iterative reconstruction technique). Reading Location: [facility] Discharge Plan Dx/Rx/DC Orders Clinical Impression: Dizziness, Headache, Dysphasia Disposition Disposition: Acute Care Hospital [facility] Discharge Date/Time: 12/30/24 21:31
[2024-12-30 17:35] LABS: Absolute Lymphocyte Count 2.21 X10^3/uL (0.83-4.51); Absolute Neutrophil Count 6.4 X10^3/uL (2.0-7.7); Basophil# 0.02 X10^3/uL; Basophil% 0.2 % (0-1); Eosinophil# 0.37 X10^3/uL; Eosinophils% 3.8 % (0-5); Hematocrit 37.5 % (37-47); Lymphocyte # 2.21 X10^3/ul (0.83-4.51); Lymphocyte % 22.6 % (19-41); Mean Corpuscular Hgb 28.5 pg (27.0-32.0); Mean Corpuscular Volume 89.1 fL (81-99); Mean Platelet Vol. 11.2 fl (6.2-12.0); Monocyte# 0.75 X10^3/uL; Monocyte% 7.7 % (0-10); NRBC Flagged by Analyzer 0 % (0-5); Neutrophil # 6.39 X10^3/uL (2.7-7.7); Neutrophil % 65.4 % (47-70); Platelet Count 287 K/mm3 (150-450); RBC Distribution Width CV 13.2 % (11.6-14.6); RBC Distribution Width SD 43.1 fl (35.1-43.9); Red Blood Count 4.21 M/mm3 (4.2-5.4); White Blood Count 9.8 K/mm3 (4.4-11.0)
[2024-12-30 17:44] LABS: International Normalized Ratio 0.9; Partial Thromboplast Time 27.2 Seconds (24.1-36.2); Prothrombin Time (Protime)PT. 12.2 SECONDS (11.7-14.9)
[2024-12-30 18:09] LABS: Anion Gap 10 (5-15); BUN 22 mg/dL (4-19); BUN/Creat Ratio 22.9 RATIO (10-20); Calcium,Total 9.8 mg/dL (7.6-11.0); Carbon Dioxide 24.9 mmol/L (21.0-32.0); Chloride 107 mmol/L (98-108); Creatinine, Serum 0.97 mg/dL (0.70-1.20); EST Glomerular Filtration Rate 59 (>60); Estimated Creatinine Clearance 46.69 ml/min (50-250); Glucose 111 mg/dL (70-99); Potassium 3.1 mmol/L (3.3-5.1); Sodium Level 142 mmol/L (133-145); Troponin T High Sensitivity 14 ng/L (<=14)
--- NOTE | 2024-12-30 20:14 | HP.PCM.HOS_ITS ---
HPI - General General Date of Admission: 12/30/24 Date of Service: 12/30/24 Chief Complaint: Dizziness, intermittent expressive aphasia HPI Narrative The patient is an 84 y/o F w/ PMHx: CKD stage III unclear subtype per GFR trending, Rheumatoid arthritis, Lupus, Anxiety and Depression, HTN, HLD, GERD, Former tobacco use, Hx collagenous colitis, Nonobstructive CAD who presents to the [facility] ED on 12/30/24 with history of recent onset over the last several days increased fatigue, malaise, sleeping frequently with fevers in addition to recent history of lightheadedness, dizziness seen in the PCP office the day prior to current presentation with intermittent difficulty per family getting her words out/expressive aphasia with also reported with the dizziness possibly room spinning sensation and intermittent headaches with underlying history of chronic migraines with symptoms waxing and waning with PCP on day of presentation strongly encourage evaluation to assure rule out stroke. Patient does report taking baby aspirin only. She is unsure of any potential ill contacts. Workup in the ED included T99.5, heart rate 67, BP 196/76, respiratory rate 16, 98% on room air, most recent repeat vitals T99.2, heart rate 56, BP 173/73, respiratory rate 14, 97% room air, CBC with WC 9.8, human 12, platelet 287 without shift, unremarkable coags, BMP with potassium 3.1, BUN/2022/0.97, GFR 59, glucose 111 otherwise unremarkable, troponin initial 14, CTA head and neck with mild atherosclerotic changes with no hemodynamically significant stenosis in the arteries of the head and neck and unremarkable CT of the head with no acute intracranial findings, EKG with sinus bradycardia with no acute evidence of ischemia, NIH stroke scale in the ED 0. PFSH Medical History Post-menopausal Colitis Shortness of breath on exertion History of irregular heartbeat History of echocardiogram Chest pain Rheumatoid arthritis Osteoporosis Kidney disease Hepatitis Lupus (systemic lupus erythematosus) MDD (major depressive disorder), recurrent, in partial remission Insomnia Wears hearing aid Cancer Anxiety History of steroid therapy Arthritis Anemia High cholesterol Back pain Syncope Migraine headache Lupus Ulcerative colitis Gastric reflux Former smoker History of pain when walking History of edema History of stress test Hypertension Cardiology follow-up encounter Nonobstructive atherosclerosis of coronary artery Fracture of proximal phalanx of left little finger Nonrheumatic mitral (valve) prolapse Collagenous colitis Depression Dyslipidemia Benign essential hypertension Home Medications ?Medication ?Instructions ?Recorded ?Last Taken ?Type omeprazole 20 mg capsule,delayed 20 mg PO BID gerd/UC 03/20/14 12/30/24 08:00 History release 20 mg acetaminophen 325 mg tablet 1,000 mg PO PRN Pain 08/09 Unknown History amlodipine 5 mg tablet 5 mg PO DAILY bp #90 tabs 12/30/24 08:00 Rx 5 mg atorvastatin 20 mg tablet 20 mg PO QHS 02/04/23 21:00 History 20 mg carvedilol 3.125 mg tablet 3.125 mg PO BID heart #180 tabs 03/27/24 12/30/24 08:00 Rx 3.125 mg aspirin 81 mg tablet,delayed 81 mg PO BREAKFAST #90 ta bs 09/21/24 12/30/24 08:14 Rx release 81 mg cholecalciferol (vitamin D3) 1,250 1,250 mcg PO QWEEK 09/22/24 Unknown History mcg (50,000 unit) capsule lisinopril 20 mg tablet 20 mg PO DAILY #90 tabs 04/21 Unknown Rx clonazepam 0.5 mg tablet 0.5 mg PO QHS #30 tabs 12/2312/29/24 21:00 Rx 0.5 mg sertraline 50 mg tablet 50 mg PO DAILY 12/30/2403/21 08:00 History 50 mg triamcinolone acetonide 55 mcg 2 spray intranasal JARAD Y 12/30/24 Unknown History nasal spray aerosol Allergy/AdvReac Type Severity Reaction Status Date / Time hydrocodone (From Vicodin) Allergy Intermediate Itching Verified 09/22/24 15:30 adhesive tape Allergy Rash Verified 09/22/24 15:30 aripiprazole (From Abilify) Allergy mental Verified 09/22/24 15:30 status change atorvastatin calcium (From Allergy Unknown Verified 09/22/24 15:30 Lipitor) Beta-Blockers Allergy Unknown Verified 09/22/24 15:30 (Beta-Adrenergic Bloc cefaclor (From Ceclor) Allergy Unknown Verified 09/22/24 15:30 clarithromycin (From Biaxin) Allergy unknown Verified 09/22/24 15:30 erythromycin base Allergy NEEDS Verified 09/22/24 15:30 FOLLOW-UP guaifenesin (From Entex [place]) Allergy unknown Verified 09/22/24 15:30 phenylephrine (From Entex LA) Allergy unknown Verified 09/22/24 15:30 phenylpropanolamine (From Allergy unknown Verified 09/22/24 15:30 Entex LA) Sulfa (Sulfonamide Allergy Hives Verified 09/22/24 15:30 Antibiotics) Tetracyclines Allergy Unknown Verified 09/22/24 15:30 oxycodone AdvReac NEEDS Verified 09/22/24 15:30 FOLLOW-UP propoxyphene (From Darvon) AdvReac Nausea Verified 09/22/24 15:30 Family History Father CAD (coronary artery disease) Myocardial infarction Hypertension Mother Hypertension Myocardial infarction CAD (coronary artery disease) Daughter Depression Diabetes Seizures Surgical History Hx of surgical procedure Hx of colonoscopy Hx of right cataract extraction Hx of left cataract extraction Hx of cholecystectomy Hx of right knee surgery History of left heart catheterization (11/01/14) H/O arthroscopic knee surgery History of tubal ligation History of tonsillectomy History of hysterectomy Social History (Updated 12/31/24 @ 01:[address] Kaylie Pena MD) household members: none Smoking Status: Former smoker how long ago did patient quit smokin + years ago alcohol intake: current alcohol intake frequency: holidays/special occasions only Alcohol type: wine substance use type: does not use caffeine: Yes Type: carbonated beverages Number of servings: 6 ROS ROS Narrative Admission Review of Systems: CONSTITUTIONAL: No weight loss, + fever, chills, weakness or fatigue. HEENT: + Intermittent headaches, does have underlying history of chronic migraines, intermittent lightheadedness/dizziness/possibly vertiginous. Eyes: No visual loss, blurred vision, double vision or yellow sclerae. Ears, Nose, Throat: No hearing loss, sneezing, congestion, runny nose or sore throat. SKIN: No rash or itching, lesions, wounds. CARDIOVASCULAR: No chest pain, chest pressure or chest discomfort, palpitations, edema, orthopnea, syncopal events. RESPIRATORY: No shortness of breath, cough or sputum, wheezing, hemoptysis. GASTROINTESTINAL: No anorexia, nausea, vomiting or diarrhea, abdominal pain, melena, BRBPR. GENITOURINARY: No dysuria, frequency, urgency or retention. NEUROLOGICAL: + Intermittent headaches, does have underlying history of chronic migraines, intermittent episodes of possibly expressive aphasia, intermittent lightheadedness/dizziness/possibly vertiginous. No paralysis, ataxia, numbness or tingling in the extremities, focal weakness, change in bowel or bladder control, seizure. MUSCULOSKELETAL: + muscle, back pain, joint pain or stiffness. HEMATOLOGIC: + Chronic anemia, easy bleeding/bruising. LYMPHATICS: No enlarged nodes. No history of splenectomy. PSYCHIATRIC: + History of anxiety and depression. ENDOCRINOLOGIC: No reports of sweating, cold or heat intolerance. No polyuria or polydipsia. ALLERGIES: + History of hives, allergic rhinitis. Vital Signs Vital Signs Vital Signs: 12/30/24 16:55 12/30/24 17:23 12/30/24 17:39 Temperature 99.5 F H Temperature Source Oral Pulse Rate 67 56 L Respiratory Rate 10 L 16 Blood Pressure 196/76 H 163/82 H Blood Pressure Mean 116 109 Pulse Ox 98 95 96 Oxygen Delivery Method Room Air Room Air Room Air 12/30/24 17:53 12/30/24 19:00 12/30/24 19:48 Temperature Temperature Source Pulse Rate 56 L 54 L 60 Respiratory Rate 16 16 14 Blood Pressure 168/66 H 157/55 H 173/73 H Blood Pressure Mean 100 89 106 Pulse Ox 97 96 96 Oxygen Delivery Method Room Air Room Air Room Air 12/30/24 19:49 Temperature 99.2 F H Temperature Source Pulse Rate 56 L Respiratory Rate 14 Blood Pressure 173/73 H Blood Pressure Mean 106 Pulse Ox 97 Oxygen Delivery Method Weight Weight: 168 lb 6.931 oz Body Mass Index (BMI) 26.4 Physical Exam Narrative Physical Examination: General: Awake, alert, oriented to self, place, recent events, extremely talkative, remains cooperative, seated upright in ED bed with no acute distress, no evidence of any expressive aphasia currently, does not appear severely ill. Skin: Normal color, normal turgor, no icterus, no cyanosis Except occasional stage ecchymoses. HEENT: AT/NC, EOMI, PERRLA, mildly dry MM, no carotid bruits or JVD noted. Lungs: Mildly diminished, greater bases, appropriate effort, no rales, ronchi or wheezing. Heart: Mildly bradycardic with rhythm; no gallop, rub audible. Abdomen: Soft, NTTP, ND, normal BS, no appreciated HSM. Extremities: No cyanosis, clubbing, or edema. Neurological: Patient awake, alert, oriented as noted, cognitive function currently appears baseline intact; pupils equally reactive to light and accommodation, cranial nerves gross normal, moving all 4 extremities, no focal deficits, strength moderately globally decreased, no current lightheadedness or dizziness, no current admitted light or sound sensitivity, finger-nose and [id number] appropriate, negative Babinski, denies any current severe headache. Psychiatric: Affect appears mildly flat otherwise normal, no acute evidence of depressive or anxiety feelings but does have underlying history. Results Lab / Micro Data 12/30/24 16:30 12/30/24 16:30 Labs: Laboratory Results - last 24 hr 12/30/24 16:30: WBC 9.8, RBC 4.21, Hgb 12.0, Hct 37.5, MCV 89.1, MCH 28.5, MCHC 32.0, RDW Std Deviation 43.1, RDW Coeff of [place] 13.2, Plt Count 287, MPV 11.2, Immature Gran % (Auto) 0.300, Neut % (Auto) 65.4, Lymph % (Auto) 22.6, [place] % (Auto) 7.7, Eos % (Auto) 3.8, Baso % (Auto) 0.2, Absolute Neuts (auto) 6.4, Absolute Lymphs (auto) 2.21, Nucleated RBC % 0, PT 12.2, INR 0.9, APTT 27.2, Sodium 142, Potassium 3.1 L, Chloride 107, Carbon Dioxide 24.9, Anion Gap 10, B UN 22 H, Creatinine 0.97, Estim Creat Clear Calc 46.69 L, Est GFR (MDRD) Non-Af 59 L, BUN/Creatinine Ratio 22.9 H, Glucose 111 H, Calcium 9.8, Troponin T High Sens 14 Imaging Radiology Impression Head/Neck CTA 12/30/24 17:23 IMPRESSION: Mild atherosclerotic changes with no hemodynamically significant stenosis in the arteries of the head and neck. One or more dose reduction techniques were used (e.g., Automated exposure control, adjustment of the mA and/or kV according to patient size, use of iterative reconstruction technique). Reading Location: [facility] Assessment & Plan Assessment/Plan (1) TIA (transient ischemic attack): PLAN: Plan The patient is an 84 y/o F w/ PMHx: CKD stage III unclear subtype per GFR trending, Rheumatoid arthritis, Lupus, Anxiety and Depression, HTN, HLD, GERD, Former tobacco use, Hx collagenous colitis, Nonobstructive CAD who presents to the [facility] ED on 12/30/24 with history of recent onset over the last several days increased fatigue, malaise, sleeping frequently with fevers in addition to recent history of lightheadedness, dizziness seen in the PCP office the day prior to current presentation with intermittent difficulty per family getting her words out/expressive aphasia with also reported with the dizziness possibly room spinning sensation and intermittent headaches with underlying history of chronic migraines with symptoms waxing and waning with PCP on day of presentation strongly encourage evaluation to assure rule out stroke. #1. Expressive aphasia concerning for CVA/TIA, confounded by potential underlying viral syndrome/infectious component as noted #2: Will admit to PCU, will obtain MRI Brain, ECHO, PT/OT/Speech/Nutrition evaluation per protocol. Will allow permissive HTN, maintain on asa, statin w/ AM FLP, fall precautions. Mag, TSH, FLP, HgbA1c requested. Maintain on fall and aspiration precautions. Once work-up obtained low threshold to obtain Neurology consultation. #2. Possible acute viral syndrome, infectious component, unclear specific etiology/organism, confounding #1: Given patient recent increased fatigue, lethargy with very mild symptoms to be cautious will obtain a urinalysis, urine culture, chest x-ray, rapid COVID/influenza/PCR as well as full respiratory viral panel as well as procalcitonin. Certainly if there is an infectious component ongoing could be confounding or contributing to acute presentation #1. If workup at #1 is unremarkable and there is no obvious source for patient fevers given the symptoms may need to consider assessment of cerebral fluid but there is no nuchal rigidity and currently patient is completely alert and aware. #3. Hypokalemia: Admission K+ 3.1, magnesium level requested, supplementation given, repeat level in AM. #4. Chronic Kidney Disease Stage III, unclear subtype per GFR trend: Admission BUN/Cr 22/0.97, GFR 59, baseline renal function primarily 0.9-1.1, repeat BMP in AM. #5. Nonobstructive CAD: Will continue aspirin, statin, temporarily holding hypertensive regimen for permissive hypertension. #6. Anxiety and depression: We will continue patient home sertraline regimen, will temporarily hold clonazepam given concern for sedation/lethargy already but resume once appropriate. #7. Hypertension: Will temporarily maintain permissive hypertension with parent agents per stroke protocol, add back once appropriate. #8. Hyperlipidemia: We will continue patient on statin therapy with FLP in AM. #9. Rheumatoid arthritis, lupus: Per current list does not appear to be any chronic regimen, encourage continued outpatient follow-up with rheumatology as previously arranged. #10. Former tobacco use: Encourage continued tobacco cessation. #11. GERD: Continue patient on PPI. #12. DVT prophylaxis: Lovenox. #13. CODE status: Patient SHEA is her daughter and living will is currently in place. Discussed CODE status at length including difference between FULL code, DNR-CCA and DNR-CC status. Following discussions about the differences in these status, requested Full Code status. Advanced Care Planning Face to Face Time: 16 minutes. Charges/Coding Visit Charges Inpatient E&M: 48340 Init Hosp L3 Procedures Hospitalists Procedures: 56553 Advncd Care Plan 30 Min
[2024-12-30 20:15] LABS: TROPONIN VARIANCE 2 HR 0; Troponin T High Sens 2 HR 14 ng/L (<=14)
--- NOTE | 2024-12-30 21:32 | ECHOD_ITS ---
Reason For Study Reason For Study: TIA/CVA Procedure This was a 2D Doppler, Color Flow transthoracic echocardiogram. Exam performed portable in patient room. Left Ventricle Normal LV size. Mild concentric left ventricular hypertrophy. The left ventricular ejection fraction is 70 %. Stage 2 diastolic dysfunction. Right Ventricle Normal RV size and function. Redundant chord. Atria The left and right atria are normal. Mitral Valve Mild focal calcification of the anterior mitral valve leaflet with equivocal prolapse. Trivial mitral valve regurgitation. Tricuspid Valve Mild tricuspid valve insufficiency. Right ventricular systolic pressure estimated to be 42 mmHg. Aortic Valve Trisinus/trileaflet aortic valve. Mild focal aortic valve calcification. Pulmonic Valve The pulmonic valve is not well visualized. Great Vessels Normal sized aortic root. Pericardium/Pleural No pericardial effusion. MMode/2D Measurements & Calculations LVIDd: 4.4 cm IVSd: 1.4 cm Ao root diam: 3.3 cm LVIDs: 3.9 cm LVPWd: 1.3 cm RVDd: 3.1 cm FS: 11.9 % LAV(MOD-bp): 60.9 ml LVAd ap4: 23.6 cm2 SV(MOD-sp4): 49.9 ml LAV(MOD-bp) Indexed: 35.8 ml/m2 LVLd ap4: 7.6 cm SI(MOD-sp4): 29.3 ml/m2 LAV(MOD-sp2): 55.2 ml EDV(MOD-sp4): 61.7 ml LAV(MOD-sp4): 50.1 ml EDV(sp4-el): 62.2 ml LVAs ap4: 8.6 cm2 LVLs ap4: 6.1 cm ESV(MOD-sp4): 11.8 ml ESV(sp4-el): 10.4 ml EF(MOD-sp4): 80.9 % EF(sp4-el): 83.3 % SV(sp4-el): 51.8 ml LA A4 area: 19.6 cm2 LA dimension(2D): 3.3 cm RA A4 area: 16.6 cm2 Time Measurements MV dec time: 0.30 sec Doppler Measurements & Calculations MV E max taz: 62.2 cm/sec Lat Peak E' Taz: 10.1 cm/sec Med Peak E' Taz: 5.9 cm/sec MV A max taz: 82.2 cm/sec E/E' lat: 6.2 E/E' med: 10.5 MV E/A: 0.76 Ao V2 max: 142.4 cm/sec LV V1 max: 124.3 cm/sec MV dec slope: 208.0 cm/sec2 Ao max P.1 mmHg LV V1 max P.2 mmHg Ao V2 mean: 89.5 cm/sec LV V1 mean P.0 mmHg Ao mean P.8 mmHg LV V1 mean: 80.5 cm/sec Ao V2 VTI: 34.4 cm LV V1 VTI: 29.9 cm AV (velocity ratio): 0.87 PA V2 max: 77.8 cm/sec TR max taz: 303.4 cm/sec PA V2 mean: 58.5 cm/sec TR max P.8 mmHg ECHO/Echo Complete Interpretation Summary Mild concentric left ventricular hypertrophy. The left ventricular ejection fraction is 70 %. Stage 2 diastolic dysfunction. Mild focal calcification of the anterior mitral valve leaflet with equivocal pr olapse. Trivial mitral valve regurgitation. Right ventricular systolic pressure estimated to be 42 mmHg. Mild focal aortic valve calcification. Ordering Physician: Kaylie Pena Referring Physician: Adam Zhang Performed By: Sandra Hawley RCS
--- NOTE | 2024-12-30 21:50 | RAD_ITS ---
PROCEDURE: CHEST PA AND LATERAL REASON FOR EXAM: Fever TECHNIQUE: Frontal and lateral views of the chest. COMPARISON: Chest radiograph dated 11/25/2023 FINDINGS: The heart size is normal. The mediastinal contour is unremarkable. The lungs are clear. The bones are unremarkable. RAD/Chest PA and Lateral IMPRESSION: NEGATIVE CHEST Reading Location: [facility]
[2024-12-30] MEDS: Potassium Chloride Oral Tablet 20 MEQ 40 MEQ PO (23:53)
[2024-12-30] MEDS: 0.9% Normal Saline (1000mL) 1,000 ML 100 ML IV (23:53)
[2024-12-30] MEDS: Acetaminophen 325 MG Tablet 650 MG PO (23:54)
[2024-12-31] VITALS (9 sets, daily range): BP systolic 143–203; BP diastolic 56–95; PULSE 52–75; RESP 16–18; TEMP 36.3–36.9; O2SAT 95–99; BMI 21.5
[2024-12-31] MEDS: MELATONIN 3 MG TABLET PO (00:08)
[2024-12-31 01:04] LABS: Magnesium 1.9 mg/dL (1.5-2.2); Procalcitonin 0.05 ng/mL (<=0.10); TROPONIN VARIANCE 4 HR 6; Troponin T High Sens 4 HR 20 ng/L (<=14)
[2024-12-31 05:07] LABS: Absolute Lymphocyte Count 2.15 X10^3/uL (0.83-4.51); Absolute Neutrophil Count 6.9 X10^3/uL (2.0-7.7); Basophil# 0.01 X10^3/uL; Basophil% 0.1 % (0-1); Hematocrit 31.1 % (37-47); Hemoglobin 10.3 g/dL (12.0-15.0); Lymphocyte # 2.15 X10^3/ul (0.83-4.51); Lymphocyte % 21.2 % (19-41); Mean Corp Hgb Conc 33.1 g/dL (32-36); Mean Corpuscular Volume 87.6 fL (81-99); Mean Platelet Vol. 11.2 fl (6.2-12.0); Monocyte# 0.73 X10^3/uL; Monocyte% 7.2 % (0-10); NRBC Flagged by Analyzer 0 % (0-5); Neutrophil # 6.92 X10^3/uL (2.7-7.7); Neutrophil % 68.1 % (47-70); Platelet Count 227 K/mm3 (150-450); Red Blood Count 3.55 M/mm3 (4.2-5.4); White Blood Count 10.2 K/mm3 (4.4-11.0)
[2024-12-31 05:59] LABS: Hemoglobin A1c 5.8 % (<=5.6)
[2024-12-31 06:02] LABS: ALB/GLOB Ratio 1.6 RATIO (0.9-2.4); AST(SGOT) 16 U/L (<=31); Alanine Aminotransfer ALT/SGPT 16 U/L (<=34); Albumin, Serum 3.3 g/dL (3.4-4.8); Alkaline Phosphatase 88 U/L (35-104); Anion Gap 10 (5-15); BUN 19 mg/dL (4-19); BUN/Creat Ratio 23.8 RATIO (10-20); Calcium,Total 9.3 mg/dL (7.6-11.0); Carbon Dioxide 21.5 mmol/L (21.0-32.0); Chloride 108 mmol/L (98-108); Cholesterol 131 mg/dL (<=200); EST Glomerular Filtration Rate 74 (>60); Estimated Creatinine Clearance 52.72 ml/min (50-250); Glucose 105 mg/dL (70-99); High Density Lipoprotein 58 mg/dL; Low Density Lipoprotein Calc. 34 mg/dL; Potassium 3.5 mmol/L (3.3-5.1); Protein, Total 5.3 g/dL (5.9-8.4); Sodium Level 140 mmol/L (133-145); Total Bilirubin 0.24 mg/dL (0.00-1.30); Triglycerides 199 mg/dL; Very Low Density Lipoprotein 40 mg/dL (5-40); cholesterol:hdl ratio screen 2.27
[2024-12-31 06:34] LABS: Bacteria 0 SEEN /hpf (None Seen); Mucous, Urine 0 SEEN /hpf (<or=2+)
[2024-12-31 06:46] LABS: Color, Urine Yellow (Yellow); Glucose, Dipstick Normal (Normal); Ketone-Dipstick Negative (Negative); Leukocyte Esterase-Dipstick Negative /ul (Negative); Nitrite-Dipstick Negative (Negative); Occult Blood-Urine Negative /ul (Negative); Protein-Dipstick 15 mg/dl (Negative); Urine Bilirubin Dipstick Negative (Negative); Urine Clarity Clear (Clear); Urine Urobilinogen Normal (Normal)
[2024-12-31 07:28] LABS: Red Blood Cells-Urine 0 SEEN /hpf (0-5); Squamous Epithelial Cells - UA 0-5 SEEN /hpf (5-10); White Blood Cells 0-5 SEEN /hpf (0-5)
[2024-12-31] MEDS: LORazepam 0.5 MG Tablet PO (08:34)
--- NOTE | 2024-12-31 09:00 | MRI_ITS ---
EXAM: MRI brain without contrast. CLINICAL HISTORY: TIA/CVA. Reported word-finding difficulty, dizziness, fatigue. COMPARISON: 12/30/2024. TECHNIQUE: Multisequence multiplanar MRI brain was performed without intravenous contrast. Contrast: None. FINDINGS: Cerebrum: No acute infarct, appreciable intracranial hemorrhage, visible mass, or mass effect. Mild/moderate cerebral atrophy. Moderate to advanced patchy supratentorial white matter signal abnormalities, nonspecific but compatible with chronic microvascular ischemic changes. Midline structures unremarkable. Cerebellum: Unremarkable. Brainstem: Unremarkable. Ventricles/extra-axial spaces: Ventriculomegaly is proportionate to the degree of volume loss. Major flow voids: Better evaluated on recent CTA. Paranasal sinuses: Mild/moderate mucosal thickening in the right sphenoid sinus. Trace to mild ethmoid mucosal thickening. Mucous retention cyst, right maxillary sinus.. Scalp/calvarium: Mild hyperostosis frontalis. Orbits: Cataract surgery. MRI/Brain without Contrast IMPRESSION: 1. No evidence of acute infarct. 2. Right sphenoid paranasal sinus disease. 3. Chronic findings and additional description as above. Reading Location: [id number]
--- NOTE | 2024-12-31 09:55 | PCM.PN.HOSP ---
Reason for Visit Reason for Visit: Diagnoses Transient cerebral ischemic attack, unspecified (12/30/24) Subjective Subjective Patient is an 84-year-old lady who presented with intermittent dizziness fatigue as well as expressive aphasia and assessment of suspected CVA/TIA was made admitted to monitored bed for further management Objective Data Objective Data Vital Signs: Vital Signs Temp Pulse Resp BP Pulse Ox O2 Del Method 97.4 F L 66 18 203/95 H 98 Room Air 12/31/24 08:58 12/31/24 08:58 12/31/24 08:58 12/31/24 08:58 12/31/24 08:58 12/31/24 08:58 Oxygen Delivery Method Room Air Weight: 62.5 kg Body Mass Index (BMI) 21.5 Intake & Output: Intake and Output for Last 24 Hours 12/29/24 12/30/24 12/31/24 23:59 23:59 23:59 Intake Total 0 / 240 360 / 360 Balance 0 / 240 360 / 360 Lab / Micro Data 12/31/24 04:23 12/31/24 04:23 Labs: Laboratory Results - last 24 hr 12/30/24 16:30: WBC 9.8, RBC 4.21, Hgb 12.0, Hct 37.5, MCV 89.1, MCH 28.5, MCHC 32.0, RDW Std Deviation 43.1, RDW Coeff of [place] 13.2, Plt Count 287, MPV 11.2, Immature Gran % (Auto) 0.300, Neut % (Auto) 65.4, Lymph % (Auto) 22.6, [place] % (Auto) 7.7, Eos % (Auto) 3.8, Baso % (Auto) 0.2, Absolute Neuts (auto) 6.4, Absolute Lymphs (auto) 2.21, Nucleated RBC % 0, PT 12.2, INR 0.9, APTT 27.2, Sodium 142, Potassium 3.1 L, Chloride 107, Carbon Dioxide 24.9, Anion Gap 10, BUN 22 H, Creatinine 0.97, Estim Creat Clear Calc 46.69 L, Est GFR (MDRD) Non-Af 59 L, BUN/Creatinine Ratio 22.9 H, Glucose 111 H, Calcium 9.8, Troponin T High Sens 14 12/30/24 19:40: Troponin T Hi Sens 2 Hr 14, Troponin T Hi Sens 2Hr Delta 0 12/30/24 23:53: Magnesium 1.9, Troponin T Hi Sens 4Hr 20 H, Troponin T Hi Sens 4Hr Delta 6, Procalcitonin 0.05 12/31/24 04:23: WBC 10.2, RBC 3.55 L, Hgb 10.3 L, Hct 31.1 L, MCV 87.6, MCH 29.0, MCHC 33.1, RDW Std Deviation 42.0, RDW Coeff of [place] 13.0, Plt Count 227, MPV 11.2, Immature Gran % (Auto) 0.400, Neut % (Auto) 68.1, Lymph % (Auto) 21.2, [place] % (Auto) 7.2, Eos % (Auto) 3.0, Baso % (Auto) 0.1, Absolute Neuts (auto) 6.9, Absolute Lymphs (auto) 2.15, Nucleated RBC % 0, Sodium 140, Potassium 3.5, Chloride 108, Carbon Dioxide 21.5, Anion Gap 10, BUN 19, Creatinine 0.80, Estim Creat Clear Calc 52.72, Est GFR (MDRD) Non-Af 74, BUN/Creatinine Ratio 23.8 H, Glucose 105 H, Hemoglobin A1c 5.8, Calcium 9.3, Total Bilirubin 0.24, AST 16, ALT 16, Alkaline Phosphatase 88, Total Protein 5.3 L, Albumin 3.3 L, Globulin 2.0 L, Albumin/Globulin Ratio 1.6, Triglycerides 199, Cholesterol 131, LDL Cholesterol, Calc 34, VLDL Cholesterol 40, HDL Cholesterol 58, Cholesterol/HDL Ratio 2.27, TSH 1.720 12/31/24 05:55: Urine Color Yellow, Urine Clarity Clear, Urine pH 6.0, Ur Specific [place] 1.010, Urine Protein 15 H, Urine Glucose (UA) Normal, Urine Ketones Negative, Urine Occult Blood Negative, Urine Nitrite Negative, Urine Bilirubin Negative, Urine Urobilinogen Normal, Ur Leukocyte Esterase Negative, Urine RBC 0 SEEN, Urine WBC 0-5 SEEN, Ur Squamous Epith Cells 0-5 SEEN, Urine Bacteria 0 SEEN, Urine Mucus 0 SEEN Micro: Microbiology 12/30/24 22:35 Mucosa - Nasopharyngeal Respiratory Panel (PCR) - Final 12/30/24 21:03 Mucosa - Nose SARS-CoV-2, Influenza & RSV (PCR) - Final Radiography Diagnostic Testing: Radiology Impression Head/Neck CTA 12/30/24 17:23 IMPRESSION: Mild atherosclerotic changes with no hemodynamically significant stenosis in the arteries of the head and neck. One or more dose reduction techniques were used (e.g., Automated exposure control, adjustment of the mA and/or kV according to patient size, use of iterative reconstruction technique). [facility] 12/30/24 21:50 IMPRESSION: NEGATIVE CHEST [facility] Narrative GENERAL: cooperative HEENT: Atraumatic; normocephalic EYES; Anicteric, Normal Conjunctiva NECK; supple, normal thyroid, RESPIRATORY: Diminished to auscultation CARDIOVASCULAR: Regular S1 S2, GI: soft, normoactive bowel sounds, : No Renal angle tenderness; EXTREMITIES: No edema, no clubbing, MUSCULOSKELETAL: no muscle wasting NEURO: Awake; no lateralizing signs. SKIN: No Rash PSYCH; Flat affect Assessment & Plan Assessment/Plan (1) TIA (transient ischemic attack): PLAN: Plan Patient is an 84-year-old lady who presented with intermittent dizziness fatigue as well as expressive aphasia and assessment of suspected CVA/TIA was made admitted to monitored bed for further management 1. Suspected CVA/TIA ? Patient presented with intermittent dizziness as well as expressive aphasia admitted to a monitored bed placed on every 4 neurochecks. CTA of the head and neck obtained on admission demonstrated mild atherosclerotic changes with no hemodynamically significant stenosis in the arteries of the head and neck.. Patient to undergo subsequent evaluation with MRI of the brain. [facility] 2. Acute febrile illness ? Suspected to be secondary to viral syndrome patient viral respiratory assay however came back negative 3. Hypokalemia -Corrected per protocol 4. Dehydration ? Patient was resuscitated with IV fluids 5. Chronic kidney disease stage III ruled out 6. Essential hypertension ? Patient blood pressure markedly elevated however currently pursuing permissive hypertensive protocol given patient suspected CVA 7. Dyslipidemia ?Patient is on statin therapy, continued at home dose 8. GERD ? On PPI 9. Depression with anxiety ? Patient is on sertraline 10. DVT prophylaxis ? On enoxaparin Time spent in the patient's overall evaluation,decision-making process, review of diagnostic data, adjustment of management, discussion with other providers, nursing nursing and ancillary staff involved in patient's care documentation, 50 Minutes Charges/Coding Visit Charges Inpatient E&M: 22165 Subs Hosp L3
[2024-12-31] MEDS: Aspirin 81 MG TAB.CHEW PO (10:27)
[2024-12-31] MEDS: Sertraline 50 MG Tablet PO (10:27)
[2024-12-31] MEDS: Enoxaparin 40 MG/0.4 ML Syringe SC (10:27)
[2024-12-31] MEDS: Pantoprazole Sodium 20 MG Tablet PO ×2 (10:27→21:31)
[2024-12-31] MEDS: Fluticasone 0.05% 1 SPRAY NASAL.SRY 2 SPRAY NASAL (11:42)
--- NOTE | 2024-12-31 11:49 | NEURO.CONS ---
Assessment and Plan: Neuro Assessment/Plan BERNY TOLENTINO is a 84 F with a past medical history of CKD stage III unclear subtype per GFR trending, Rheumatoid arthritis, Lupus, Anxiety and Depression, HTN, HLD, GERD, Former tobacco use, Hx collagenous colitis, Nonobstructive CAD , being evaluated by Teleneurology for difficulty speaking in setting of stress and with likely severely elevated BP. Currently patient back to baseline, and her exam in nonfocal with no clear abnormalitiies. Based on the history and aggregate data, this is unlikely a TIA or stroke but more likely hypertensive emergency. Control of hypertension will also signficiantly improve her stroke risk factor profile. Diagnosis: hypertensive emergency Plan: - keep SBP < 160/80 while in hospital - goal SBP as outpatient should be < 140/80 - asked patient to take daily BP No further recs per Teleneurology I personally attended this patient and spent a total time of 45minutes evaluating this patient including clinical assessment, review of chart, medical history imaging, and determining appropriate treatment and workup. HPI Consult Data Date of Consult: 12/31/24 HPI Narrative HPI Narrative: The patient is an 84 y/o F w/ PMHx: CKD stage III unclear subtype per GFR trending, Rheumatoid arthritis, Lupus, Anxiety and Depression, HTN, HLD, GERD, Former tobacco use, Hx collagenous colitis, Nonobstructive CAD who presents to the [facility] ED on 12/30/24 with history of recent onset over the last several days increased fatigue, malaise, sleeping frequently with fevers in addition to recent history of lightheadedness, dizziness seen in the PCP office the day prior to current presentation with intermittent difficulty per family getting her words out/expressive aphasia with also reported with the dizziness possibly room spinning sensation and intermittent headaches with underlying history of chronic migraines with symptoms waxing and waning with PCP on day of presentation strongly encourage evaluation to assure rule out stroke. Patient does report taking baby aspirin only. She is unsure of any potential ill contacts. Workup in the ED included T99.5, heart rate 67, BP 196/76, respiratory rate 16, 98% on room air, most recent repeat vitals T99.2, heart rate 56, BP 173/73, respiratory rate 14, 97% room air, CBC with WC 9.8, human 12, platelet 287 without shift, unremarkable coags, BMP with potassium 3.1, BUN/2021/0.97, GFR 59, glucose 111 otherwise unremarkable, troponin initial 14, CTA head and neck with mild atherosclerotic changes with no hemodynamically significant stenosis in the arteries of the head and neck and unremarkable CT of the head with no acute intracranial findings, EKG with sinus bradycardia with no acute evidence of ischemia, NIH stroke scale in the ED 0. Neurologic History: Benjamin feels improved now. Able to walk around the floor and she seemed to be doing better. Symptoms started last Saturday, she was in a hurry and had a lot of stress that day and suddenly was not speaking well. Her PCP has been concerned about her BP lately. The difficulty speaking lasted about an hr then she went to bed. When she woke up her words were better and she was acting better. Her BP cuff would not measure her BP. Does not measure BP regularly at home. Currently feels back to normal but she did not sleep well last night. [facility] Medical History Post-menopausal Colitis Shortness of breath on exertion History of irregular heartbeat History of echocardiogram Chest pain Rheumatoid arthritis Osteoporosis Kidney disease Hepatitis Lupus (systemic lupus erythematosus) MDD (major depressive disorder), recurrent, in partial remission Insomnia Wears hearing aid Cancer Anxiety History of steroid therapy Arthritis Anemia High cholesterol Back pain Syncope Migraine headache Lupus Ulcerative colitis Gastric reflux Former smoker History of pain when walking History of edema History of stress test Hypertension Cardiology follow-up encounter Nonobstructive atherosclerosis of coronary artery Fracture of proximal phalanx of left little finger Nonrheumatic mitral (valve) prolapse Collagenous colitis Depression Dyslipidemia Benign essential hypertension Home Medications ?Medication ?Instructions ?Recorded ?Last Taken ?Type omeprazole 20 mg capsule,delayed 20 mg PO BID gerd/UC 03/20/14 12/30/24 08:00 History release 20 mg acetaminophen 325 mg tablet 1,000 mg PO PRN Pain 08/09/22 Unknown History amlodipine 5 mg tablet 5 mg PO DAILY bp #90 tabs 11/08/22 12/30/24 08:00 Rx 5 mg atorvastatin 20 mg tablet 20 mg PO QHS 02/04/23 12/29/24 21:00 History 20 mg carvedilol 3.125 mg tablet 3.125 mg PO BID heart #180 tabs 03/27/24 12/30/24 08:00 Rx 3.125 mg aspirin 81 mg tablet,delayed 81 mg PO BREAKFAST #90 tabs 09/21/24 12/30/24 08:14 Rx release 81 mg cholecalciferol (vitamin D3) 1,250 1,250 mcg PO QWEEK 09/22/24 Unknown History mcg (50,000 unit) capsule lisinopril 20 mg tablet 20 mg PO DAILY #90 tabs 11/02/24 Unknown Rx clonazepam 0.5 mg tablet 0.5 mg PO QHS #30 tabs 12/23/24 12/29/24 21:00 Rx 0.5 mg sertraline 50 mg tablet 50 mg PO DAILY 12/30/24 12/30/24 08:00 History 50 mg triamcinolone acetonide 55 mcg 2 spray intranasal DAILY 12/30/24 Unknown History nasal spray aerosol Allergy/AdvReac Type Severity Reaction Status Date / Time hydrocodone (From Vicodin) Allergy Intermediate Itching Verified 09/22/24 15:30 adhesive tape Allergy Rash Verified 09/22/24 15:30 aripiprazole (From Abilify) Allergy mental Verified 09/22/24 15:30 status change atorvastatin calcium (From Allergy Unknown Verified 09/22/24 15:30 Lipitor) Beta-Blockers Allergy Unknown Verified 09/22/24 15:30 (Beta-Adrenergic Bloc cefaclor (From Ceclor) Allergy Unknown Verified 09/22/24 15:30 clarithromycin (From Biaxin) Allergy unknown Verified 09/22/24 15:30 erythromycin base Allergy NEEDS Verified 09/22/24 15:30 FOLLOW-UP guaifenesin (From Entex [place]) Allergy unknown Verified 09/22/24 15:30 phenylephrine (From Entex [place]) Allergy unknown Verified 09/22/24 15:30 phenylpropanolamine (From Allergy unknown Verified 09/22/24 15:30 Entex LA) Sulfa (Sulfonamide Allergy Hives Verified 09/22/24 15:30 Antibiotics) Tetracyclines Allergy Unknown Verified 09/22/24 15:30 oxycodone AdvReac NEEDS Verified 09/22/24 15:30 FOLLOW-UP propoxyphene (From Darvon) AdvReac Nausea Verified 09/22/24 15:30 Family History Father CAD (coronary artery disease) Myocardial infarction Hypertension Mother Hypertension Myocardial infarction CAD (coronary artery disease) Daughter Depression Diabetes Seizures Surgical History Hx of surgical procedure Hx of colonoscopy Hx of right cataract extraction Hx of left cataract extraction Hx of cholecystectomy Hx of right knee surgery History of left heart catheterization (11/01/14) H/O arthroscopic knee surgery History of tubal ligation History of tonsillectomy History of hysterectomy Social History (Updated 12/31/24 @ 01:[address] Kaylie Pena MD) household members: none Smoking Status: Former smoker how long ago did patient quit smokin + years ago alcohol intake: current alcohol intake frequency: holidays/special occasions only Alcohol type: wine substance use type: does not use caffeine: Yes Type: carbonated beverages Number of servings: 6 Vital Signs Vital Signs Vital Signs: 12/30/24 16:55 12/30/24 17:23 12/30/24 17:39 Temperature 99.5 F H Temperature Source Oral Pulse Rate 67 56 L Pulse Strength Respiratory Rate 10 L 16 Respiratory Effort Respiratory Depth Respiratory Pattern Blood Pressure 196/76 H 163/82 H Blood Pressure Mean 116 109 Blood Pressure Source Blood Pressure Position Blood Pressure Location Pulse Ox 98 95 96 Oxygen Delivery Method Room Air Room Air Room Air 12/30/24 17:53 12/30/24 19:00 12/30/24 19:48 Temperature Temperature Source Pulse Rate 56 L 54 L 60 Pulse Strength Respiratory Rate 16 16 14 Respiratory Effort Respiratory Depth Respiratory Pattern Blood Pressure 168/66 H 157/55 H 173/73 H Blood Pressure Mean 100 89 106 Blood Pressure Source Blood Pressure Position Blood Pressure Location Pulse Ox 97 96 96 Oxygen Delivery Method Room Air Room Air Room Air 12/30/24 19:49 12/30/24 21:00 12/30/24 21:44 Temperature 99.2 F H Temperature Source Pulse Rate 56 L 62 Pulse Strength Respiratory Rate 14 13 Respiratory Effort Respiratory Depth Respiratory Pattern Blood Pressure 173/73 H 170/83 H Blood Pressure Mean 106 112 Blood Pressure Source Blood Pressure Position Blood Pressure Location Pulse Ox 97 96 98 Oxygen Delivery Method Room Air Room Air 12/30/24 22:00 12/30/24 22:00 12/31/24 01:49 Temperature Temperature Source Pulse Rate Pulse Strength Normal (2+) Respiratory Rate Respiratory Effort Normal Respiratory Depth Normal Respiratory Pattern Normal Blood Pressure 162/57 H Blood Pressure Mean 92 Blood Pressure Source Monitor Blood Pressure Position Supine Blood Pressure Location Left Arm Pulse Ox Oxygen Delivery Method Room Air 12/31/24 03:34 12/31/24 03:36 12/31/24 06:50 Temperature 98.2 F Temperature Source Oral Pulse Rate 52 L Pulse Strength Respiratory Rate 16 Respiratory Effort Normal Respiratory Depth Normal Respiratory Pattern Normal Blood Pressure 150/75 H Blood Pressure Mean 100 Blood Pressure Source Monitor Blood Pressure Position Supine Blood Pressure Location Left Arm Pulse Ox 97 99 Oxygen Delivery Method Room Air Room Air Room Air 12/31/24 08:02 12/31/24 08:58 Temperature 97.4 F L Temperature Source Oral Pulse Rate 66 Pulse Strength Respiratory Rate 18 Respiratory Effort Normal Non-Labored Respiratory Depth Normal Respiratory Pattern Normal Blood Pressure 203/95 H Blood Pressure Mean 131 Blood Pressure Source Monitor Blood Pressure Position Semi-Fowlers Blood Pressure Location Left Arm Pulse Ox 98 Oxygen Delivery Method Room Air Room Air Weight Weight: 62.5 kg Body Mass Index (BMI) 21.5 EEG Results Procedure Details EEG Procedure Details: BERNY TOLENTINO is a 84 year old F with a past medical history of , who presents for evaluation of Electroencephalogram on DATE at TIME NIHSS NIHSS Nursing Documentation NIHSS Nursing Documentation: NIHSS: Ischemic Stroke/TIA Start: 12/30/24 21:32 Text: For PCU Patients: NIH and Neuro Check every 4 Status: Active hours, PRN and with change in RN caregiver. Freq: [id number] Protocol: Activity Type Activity Date Activity User E-sign Co-sign Detail Recorded Client Recorded Date Recorded By Document 12/31/24 08:59 [facility] [id number] 12/31/24 09:03 Isai 12/31/24 08:59 NIH Stroke Scale [NIHSS] A score of 0 is normal or asymptomatic . Total possible score is 42. Inpatient: RN or Physician to activate a stroke alert for onset of new stroke symptoms or with NIHSS increase >/= 3 points. Following change in neurological status, NIHSS will be performed per physician order or more frequently PRN. -1a. Level of Consciousness Alert; keenly responsive -1b. LOC Questions Answers BOTH questions correctly. -1c. LOC Commands Performs both tasks correctly . -2. Best Gaze Normal -3. Visual No visual loss -4. Facial Palsy Normal symmetrical movements -5a. Left Arm No drift; arm holds 90 (or 45 ) degrees for full 10 seconds -5b. Right Arm No drift; arm holds 90 (or 45 ) degrees for full 10 seconds -6a. Left Leg No drift; leg holds 30-degree position for full 5 seconds -6b. Right Leg No drift; leg holds 30-degree position for full 5 seconds -7. Limb Ataxia Absent -8. Sensory Normal; no sensory loss -9. Best Language No aphasia; normal -10. Dysarthria Normal -11. Extinction and Inattention No abnormality -Total 0 Query Text:A score of 0 is normal or asymptomatic. Total possible score is 42 . ED: Notify Physician for NIHSS increase by > / = 3 points. Inpatient: RN or Physician to activate a stroke alert for NIHSS increase of > / = 3 points. Coma Scale [Assess] -Eye Opening Spontaneous -Motor Obeys Commands -Verbal Oriented [Total] -Coma Scale Total 15 Physical Exam Narrative -? General: Laying comfortably in bed; in no acute distress. -? HENT: Normal oropharynx and mucosa. Normal external appearance of ears and nose. Exophthalmos. -? Neck: Supple, no pain or tenderness -? CV:? No peripheral edema. -? Pulmonary:? Normal respiratory effort. -? Ext: No cyanosis, edema, or deformity -? Skin: No rash. Normal palpation of skin.? -? Musculoskeletal: full range of motion; no joint tenderness. Normal digits and nails by inspection. No clubbing. -? NEURO: -? Mental Status: The patient was alert and oriented to time, place, and person. Normal recent/remote memory, concentration, and general fund of knowledge. -? Language: speech is clear.? Naming, repetition, fluency, and comprehension intact. -? Cranial Nerves: EOMI, visual walters full, no facial asymmetry, facial sensation intact, hearing intact, tongue midline, no evidence of atrophy or fibrillations. -? Motor: normal bulk, tone, and strength throughout. No pronator drift or satelliting. Upper and lower extremities equal bilaterally. -?Detailed strength exam as performed by the nurse/RADHA and witnessed by the physician: R L SA 5 5 EE EF 5 5 WE WF Leaflet Or Newspaper Deliverer 5 5 HF KE KF 4 4 DF 5 5 PF -? Tone: is normal and bulk is normal -? Sensation- Intact to light touch bilaterally -? Coordination: No dysmetria on [id number], finger follow finger or [id number]. -? Gait- deferred Lab / Micro Data 12/31/24 04:23 12/31/24 04:23 Labs: Laboratory Results - last 24 hr 12/30/24 16:30: WBC 9.8, RBC 4.21, Hgb 12.0, Hct 37.5, MCV 89.1, MCH 28.5, MCHC 32.0, RDW Std Deviation 43.1, RDW Coeff of [place] 13.2, Plt Count 287, MPV 11.2, Immature Gran % (Auto) 0.300, Neut % (Auto) 65.4, Lymph % (Auto) 22.6, [place] % (Auto) 7.7, Eos % (Auto) 3.8, Baso % (Auto) 0.2, Absolute Neuts (auto) 6.4, Absolute Lymphs (auto) 2.21, Nucleated RBC % 0, PT 12.2, INR 0.9, APTT 27.2, Sodium 142, Potassium 3.1 L, Chloride 107, Carbon Dioxide 24.9, Anion Gap 10, BUN 22 H, Creatinine 0.97, Estim Creat Clear Calc 46.69 L, Est GFR (MDRD) Non-Af 59 L, BUN/Creatinine Ratio 22.9 H, Glucose 111 H, Calcium 9.8, Troponin T High Sens 14 12/30/24 19:40: Troponin T Hi Sens 2 Hr 14, Troponin T Hi Sens 2Hr Delta 0 12/30/24 23:53: Magnesium 1.9, Troponin T Hi Sens 4Hr 20 H, Troponin T Hi Sens 4Hr Delta 6, Procalcitonin 0.05 12/31/24 04:23: WBC 10.2, RBC 3.55 L, Hgb 10.3 L, Hct 31.1 L, MCV 87.6, MCH 29.0, MCHC 33.1, RDW Std Deviation 42.0, RDW Coeff of [place] 13.0, Plt Count 227, MPV 11.2, Immature Gran % (Auto) 0.400, Neut % (Auto) 68.1, Lymph % (Auto) 21.2, [place] % (Auto) 7.2, Eos % (Auto) 3.0, Baso % (Auto) 0.1, Absolute Neuts (auto) 6.9, Absolute Lymphs (auto) 2.15, Nucleated RBC % 0, Sodium 140, Potassium 3.5, Chloride 108, Carbon Dioxide 21.5, Anion Gap 10, BUN 19, Creatinine 0.80, Estim Creat Clear Calc 52.72, Est GFR (MDRD) Non-Af 74, BUN/Creatinine Ratio 23.8 H, Glucose 105 H, Hemoglobin A1c 5.8, Calcium 9.3, Total Bilirubin 0.24, AST 16, ALT 16, Alkaline Phosphatase 88, Total Protein 5.3 L, Albumin 3.3 L, Globulin 2.0 L, Albumin/Globulin Ratio 1.6, Triglycerides 199, Cholesterol 131, LDL Cholesterol, Calc 34, VLDL Cholesterol 40, HDL Cholesterol 58, Cholesterol/HDL Ratio 2.27, TSH 1.720 12/31/24 05:55: Urine Color Yellow, Urine Clarity Clear, Urine pH 6.0, Ur Specific [place] 1.010, Urine Protein 15 H, Urine Glucose (UA) Normal, Urine Ketones Negative, Urine Occult Blood Negative, Urine Nitrite Negative, Urine Bilirubin Negative, Urine Urobilinogen Normal, Ur Leukocyte Esterase Negative, Urine RBC 0 SEEN, Urine WBC 0-5 SEEN, Ur Squamous Epith Cells 0-5 SEEN, Urine Bacteria 0 SEEN, Urine Mucus 0 SEEN Micro: Microbiology 12/30/24 22:35 Mucosa - Nasopharyngeal Respiratory Panel (PCR) - Final 12/30/24 21:03 Mucosa - Nose SARS-CoV-2, Influenza & RSV (PCR) - Final Imaging Radiology Impression Head/Neck CTA 12/30/24 17:23 IMPRESSION: Mild atherosclerotic changes with no hemodynamically significant stenosis in the arteries of the head and neck. One or more dose reduction techniques were used (e.g., Automated exposure control, adjustment of the mA and/or kV according to patient size, use of iterative reconstruction technique). [facility] Chest X-Ray 12/30/24 21:50 IMPRESSION: NEGATIVE CHEST Reading [facility] Brain [facility] 12/31/24 09:00 IMPRESSION: 1. No evidence of acute infarct. 2. Right sphenoid paranasal sinus disease. 3. Chronic findings and additional description as above. Reading Location: [id number] Active Medications Active Medications Active Medications: Current Medications Generic Name Dose Route Start Last Admin Trade Name Freq PRN Reason Stop Dose Admin Acetaminophen 650 mg 12/30/24 21:32 12/30/24 23:54 Acetaminophen 325 Mg Tablet PO 650 mg Q4H PRN PRN Administration Fever, pain 1-10 Al Hydroxide/Mg Hydroxide 30 ml 12/30/24 21:32 Mag Hydrox/Al Hydrox/Simeth 30 Ml Udc PO Q6H PRN PRN Gastric Burning Aspirin 81 mg 12/31/24 08:00 12/31/24 10:27 Aspirin 81 Mg Tab.Chew PO 81 mg BREAKFAST CRYSTAL Administration Atorvastatin Calcium 20 mg 12/31/24 22:00 Atorvastatin Calcium 20 Mg Tablet PO QHS CRYSTAL Clonazepam 0.5 mg 12/31/24 22:00 Clonazepam 0.5 Mg Tablet PO QHS CRYSTAL Enoxaparin Sodium 40 mg 12/31/24 10:00 12/31/24 10:27 Enoxaparin 40 Mg/0.4 Ml Syringe SC 40 mg DAILY CRYSTAL Administration Fluticasone Propionate 2 spray 12/31/24 10:00 12/31/24 11:42 Fluticasone 0.05% 1 [place] Nasal.Sry NASAL 2 spray DAILY CRYSTAL Administration Hydralazine HCl 5 mg 12/30/24 21:32 Hydralazine 20 Mg/Ml Vial IV 12/31/24 21:32 Q30M PRN maintain BP parameters with HR <60 Sodium Chloride 100 mls @ 15 mls/hr 12/30/24 22:30 IV .Q6H40M PRN Saline Flush Sodium Chloride 100 mls @ 15 mls/hr 12/30/24 22:30 IV .Q6H40M PRN Additional IVPB Infusion Labetalol HCl 10 - 20 mg 12/30/24 21:32 Labetalol 20mg/4ml Syringe IV 12/31/24 21:32 Q10M PRN PRN maintain BP parameters with HR >/=60 Lorazepam 0.5 - 1 mg 12/31/24 00:28 12/31/24 08:34 Lorazepam 0.5 Mg Tablet PO 1 mg PRN PRN Administration Anxiety with MRI Melatonin 3 mg 12/30/24 21:32 12/31/24 00:08 Melatonin 3 Mg Tablet PO 3 mg QHS PRN PRN Administration INSOMNIA Ondansetron HCl 4 mg 12/30/24 21:32 Ondansetron 4 Mg/2 Ml Vial IV Q8H PRN PRN NAUSEA/VOMITING Pantoprazole Sodium 20 mg 12/31/24 10:00 12/31/24 10:27 Pantoprazole Sodium 20 Mg Tablet PO 20 mg BID CRYSTAL Administration Prochlorperazine Edisylate 5 mg 12/30/24 21:32 Prochlorperazine 10 Mg/2 Ml Vial IV Q4H PRN PRN Breakthrough Nausea/Vomiting Senna/Docusate Sodium 2 tablet 12/30/24 21:32 Senna/Docusate Sodium 1 Tablet PO BID PRN PRN Constipation Sertraline HCl 50 mg 12/31/24 10:00 12/31/24 10:27 Sertraline 50 Mg Tablet PO 50 mg DAILY CRYSTAL Administration Sodium Chloride 10 - 40 ml 12/30/24 22:30 0.9% Saline Lock 10 Ml Syringe IV UD PRN SALINE FLUSH
[2024-12-31] MEDS: hydrALAZINE 20 MG/ML Vial IV (13:07)
[2024-12-31] MEDS: 0.9% Saline Lock 10 ML Syringe IV ×2 (13:09→21:34)
[2024-12-31] MEDS: Lisinopril 20 MG Tablet PO (13:52)
[2024-12-31] MEDS: Carvedilol 3.125 MG TABLET PO ×2 (13:52→21:30)
[2024-12-31] MEDS: amLODIPine 5 MG Tablet PO (13:52)
--- NOTE | 2024-12-31 15:40 | CASEMGMT ---
Met with patient to complete WALKER form. WALKER form explained to patient who voiced understanding and signed form. Original form placed in pt?s chart and copy provided to patient. Morenita Saavedra, Discharge Planning Asst
[2024-12-31] MEDS: Calcium Carbonate 500 MG Tablet PO (15:54)
--- NOTE | 2024-12-31 15:59 | CASEMGMT ---
Social Work Per neurologist note, pt unlikely for TIA/Stroke, therefore PHQ9 not completed. TIM Sheppard
[2024-12-31] MEDS: Atorvastatin Calcium 20 MG Tablet PO (21:31)
[2024-12-31] MEDS: clonazePAM 0.5 MG Tablet PO (21:31)
[2024-12-31] MEDS: Acetaminophen 500 MG Tablet 1000 MG PO (21:32)
[2025-01-01 00:08] VITALS: BMI 21.5
[2025-01-01 02:35] VITALS: BP 176/58; PULSE 66; RESP 16; TEMP 37; O2SAT 96
[2025-01-01] MEDS: 0.9% Saline Lock 10 ML Syringe IV (02:50)
[2025-01-01 02:51] VITALS: BP 176/68; PULSE 66
[2025-01-01] MEDS: hydrALAZINE 20 MG/ML Vial 10 MG IV (02:51)
[2025-01-01 04:01] VITALS: BP 160/69; PULSE 72
[2025-01-01] MEDS: Acetaminophen 500 MG Tablet 1000 MG PO (05:05)
[2025-01-01 07:44] VITALS: BP 172/75
[2025-01-01] MEDS: Aspirin 81 MG TAB.CHEW PO (07:52)
[2025-01-01] MEDS: Carvedilol 3.125 MG TABLET PO (07:52)
[2025-01-01] MEDS: Cyanocobalamin 500 MCG Tablet 1000 MCG PO (07:53)
[2025-01-01 08:23] VITALS: BP 154/71; PULSE 70; RESP 18; TEMP 36.7; O2SAT 96
--- NOTE | 2025-01-01 08:57 | PCM.DC.SUM ---
Providers Date of Admission: 12/30/24 Date of Discharge: 01/01/25 Primary Care Physician: Dee Jo, DIVE SUPERVISOR Consultations 12/30/24 21:32 Consult: Tele-Neurology Routine Consulting Provider: [facility] Reason for Consult: Acute Ischemic Stroke/TIA EMERGENT Consult: No MD Notified: Yes Date Notified: 12/30/24 Time Notified: 23:43 Method of Notification: Answering Service Nursing Unit Staff Notify [facility] of Tele-Neurology Consult: Yes Reason For Visit: TIA/CVA Diagnosis Discharge Diagnosis (1) TIA (transient ischemic attack): Status: Acute Code(s): G45.9 - Transient cerebral ischemic attack, unspecified Plan Patient is an 84-year-old lady who presented with intermittent dizziness fatigue as well as expressive aphasia and assessment of suspected CVA/TIA was made admitted to monitored bed for further management 1. Suspected CVA/TIA ? Patient presented with intermittent dizziness as well as expressive aphasia admitted to a monitored bed placed on every 4 neurochecks. CTA of the head and neck obtained on admission demonstrated mild atherosclerotic changes with no hemodynamically significant stenosis in the arteries of the head and neck.. Patient to undergo subsequent evaluation with MRI of the brain. Consult was placed to [facility] on admission 2. Acute febrile illness ? Suspected to be secondary to viral syndrome patient viral respiratory assay however came back negative 3. Hypokalemia -Corrected per protocol 4. Dehydration ? Patient was resuscitated with IV fluids 5. Chronic kidney disease stage III ruled out 6. Essential hypertension ? Patient blood pressure markedly elevated however currently pursuing permissive hypertensive protocol given patient suspected CVA 7. Dyslipidemia ?Patient is on statin therapy, continued at home dose 8. GERD ? On PPI 9. Depression with anxiety ? Patient is on sertraline 10. DVT prophylaxis ? On enoxaparin Time spent in the patient's overall evaluation,decision-making process, review of diagnostic data, adjustment of management, discussion with other providers, nursing nursing and ancillary staff involved in patient's care documentation, 36 Minutes Medications at Discharge Home Medications omeprazole 20 mg capsule,delayed release 20 mg PO BID gerd/UC 03/20/14 atorvastatin 20 mg tablet 20 mg PO QHS 02/04/23 aspirin 81 mg tablet,delayed release 81 mg PO BREAKFAST #90 tabs 09/21/24 lisinopril 20 mg tablet 20 mg PO DAILY #90 tabs 11/02/24 clonazepam 0.5 mg tablet 0.5 mg PO QHS #30 tabs 12/23/24 sertraline 50 mg tablet 50 mg PO DAILY 12/30/24 triamcinolone acetonide 55 mcg nasal spray aerosol 2 spray intranasal DAILY PRN NASAL IRRITATION 12/30/24 acetaminophen 500 mg capsule 1,000 mg PO Q8 12/31/24 cyanocobalamin (vitamin B-12) 1,000 mcg capsule 1,000 mcg PO DAILY 12/31/24 ergocalciferol (vitamin D2) 1,250 mcg (50,000 unit) capsule 1,250 mcg PO QWEEK 12/31/24 amlodipine 5 mg tablet 10 mg (2 x 5 mg) PO DAILY bp #60 tabs 01/01/25 carvedilol 3.125 mg tablet 6.125 mg (1.96 x 3.125 mg) PO BID heart #180 tabs 01/01/25 Physical Exam Narrative GENERAL: cooperative HEENT: Atraumatic; normocephalic EYES; Anicteric, Normal Conjunctiva NECK; supple, normal thyroid, RESPIRATORY: Diminished to auscultation CARDIOVASCULAR: Regular S1 S2, GI: soft, normoactive bowel sounds, : No Renal angle tenderness; EXTREMITIES: No edema, no clubbing, MUSCULOSKELETAL: no muscle wasting NEURO: Awake; no lateralizing signs. SKIN: No Rash PSYCH; Flat affect Weight / BMI Weight Weight: 62.5 kg Body Mass Index (BMI) 21.5 ABG / Lab / Microbiology Data 12/31/24 04:23 12/31/24 04:23 Microbiology: Microbiology 12/30/24 22:35 Mucosa - Nasopharyngeal Respiratory Panel (PCR) - Final 12/30/24 21:03 Mucosa - Nose SARS-CoV-2, Influenza & RSV (PCR) - Final Radiography Diagnostic Testing: Radiology Impression Echocardiogram 12/30/24 21:32 Interpretation Summary Mild concentric left ventricular hypertrophy. The left ventricular ejection fraction is 70 %. Stage 2 diastolic dysfunction. Mild focal calcification of the anterior mitral valve leaflet with equivocal prolapse. Trivial mitral valve regurgitation. Right ventricular systolic pressure estimated to be 42 mmHg. Mild focal aortic valve calcification. Ordering Physician: Kaylie Pena Referring Physician: Adam Zhang Performed By: Sandra Hawley RCS Brain MRI 12/31/24 09:00 IMPRESSION: 1. No evidence of acute infarct. 2. Right sphenoid paranasal sinus disease. 3. Chronic findings and additional description as above. Reading Location: [id number]/C Instructions Discharge Diet: No restrictions Discharge Activity: Return to Normal Activity Call your doctor if you observe: Fever of 101 or Higher, Shortness of breath, Fainting spells and Chest pain DC O2, CPAP, BIPAP Needs Home O2 Discharge instructions: No Meaningful Use Info Meaningful Use Meaningful Use Diagnoses (Choose all that apply): None applicable Ischemic Stroke Statin Dosing Therapy Reference: STATIN DOSE THERAPY REFERENCE: * Patients > 75 years receive moderate or high dose statin therapy. * Patients 75 years or YOUNGER should receive HIGH intensity statin dose unless contraindicated. You will be required to document reason for non-treatment if statin daily dose does not meet guidelines. HIGH DOSE STATIN THERAPY DAILY Atorvastatin > than or = to 40 mg Rosuvastatin > than or = to 20 mg Amlodipine + Atorvastatin > than or = to 2.5/40 mg Ezetimibe + Simvastatin 10/80 mg Simvastatin 80mg Discharge Plan Admission Admit Date/Time: 12/30/24 20:14 Attending Provider: Theodore Smalls Primary Care Provider: Dee Jo Consulting Providers: Kaylie Pena Discharge Orders/Prescriptions Prescriptions: Continued atorvastatin 20 mg tablet 20 mg PO QHS clonazepam 0.5 mg tablet 0.5 mg PO QHS Qty: 30 2RF omeprazole 20 MG capsule 20 mg PO BID Patient Comments: GERD triamcinolone acetonide 55 mcg aerosol,spray 2 spray INTRANASAL DAILY PRN sertraline 50 mg tablet 50 mg PO DAILY ergocalciferol (vitamin D2) 1,250 mcg (50,000 unit) capsule 1,250 mcg PO QWEEK cyanocobalamin (vitamin B-12) 1,000 mcg capsule 1,000 mcg PO DAILY acetaminophen 500 mg capsule 1,000 mg PO Q8 aspirin 81 mg tablet,delayed release (DR/EC) 81 mg PO BREAKFAST Qty: 90 3RF lisinopril 20 mg tablet 20 mg PO DAILY Qty: 90 3RF Changed amlodipine 5 mg tablet 10 mg PO DAILY Qty: 60 0RF carvedilol 3.125 mg tablet 6.125 mg PO BID Qty: 180 3RF Rx Instructions: must administer with a meal/food Referrals / Follow Up: Dee Jo, DIVE SUPERVISOR [Primary Care Provider] - In 1 Week Disposition Disposition (needs filled in before D/C Order can be placed): Home, Self Care Charges/Coding Visit Charges Inpatient E&M: 73867 Disch Hosp >30min
[2025-01-01] MEDS: Enoxaparin 40 MG/0.4 ML Syringe SC (09:03)
[2025-01-01] MEDS: Sertraline 50 MG Tablet PO (09:03)
[2025-01-01] MEDS: amLODIPine 5 MG Tablet PO (09:03)
[2025-01-01] MEDS: Lisinopril 20 MG Tablet PO (09:03)
[2025-01-01] MEDS: Pantoprazole Sodium 20 MG Tablet PO (09:03)
[2025-01-01] MEDS: Fluticasone 0.05% 1 SPRAY NASAL.SRY 2 SPRAY NASAL (09:03)
[2025-01-01 09:52] VITALS: BP 157/76; PULSE 75; RESP 18; TEMP 36.6; O2SAT 100
--- NOTE | 2025-01-01 10:19 | CASEMGMT ---
RN GEE noted DC order in, Reviewed chart = 6 clicks 24, daughter staying with patient, I at baseline, lives in a 1 story home. No Needs identified.
== END 2025-01-01 11:41 | disposition home or self-care (01) ==
LOC: ED 20:48 → PCU 21:17
PROVIDERS: Admitting Provider Family Medicine; Emergency Provider Emergency Medicine; PCP Clinical Nurse Specialist Adult Health; Referring Provider Emergency Medicine; Visit Provider Internal Medicine
DX: I16.1 Hypertensive emergency (principal); M06.9 Rheumatoid arthritis, unspecified; M32.9 Systemic lupus erythematosus, unspecified; I10 Essential (primary) hypertension; R29.700 NIHSS score 0; Z87.891 Personal history of nicotine dependence; E87.6 Hypokalemia; Z79.82 Long term (current) use of aspirin; E78.00 Pure hypercholesterolemia, unspecified; R47.02 Dysphasia; F41.9 Anxiety disorder, unspecified; R47.01 Aphasia; I25.10 Atherosclerotic heart disease of native coronary artery without angina pectoris; Z79.899 Other long term (current) drug therapy; F33.8 Other recurrent depressive disorders; K21.9 Gastro-esophageal reflux disease without esophagitis; E86.0 Dehydration
CPT/HCPCS: 36415; 70496; 70498; 70551; 71046; 80048; 80053; 80061; 81001; 83036; 83735; 84145; 84443; 84484; 85025; 85610; 85730; 87086; 87088; 87631; 87633; 93005; 93306; 94668; 94762; 96361; 96372; 96374; 96376; 97161; 97802; 99221; 99285; Q9967; A4216; G0378

== ENCOUNTER → 2025-03-30 | Outpatient (CLI) | payer MEDICARE, SELFPAY ==
--- NOTE | 2025-03-30 13:57 | RAD_ITS ---
PROCEDURE: CHEST PA AND LATERAL 03/30/2025 REASON FOR EXAM: PRE-OP TECHNIQUE: Frontal and lateral views of the chest. COMPARISON: None. FINDINGS: The lungs are clear. There are no pleural effusions. The heart size is normal. There is calcific vascular disease of the thoracic aorta. There is dextroscoliosis of the lumbar spine. The upper abdominal bowel gas pattern is normal. RAD/Chest PA and Lateral IMPRESSION: No evidence of acute cardiopulmonary pathology. Reading Location: [id number]
--- NOTE | 2025-03-30 13:58 | EKG12_ITS ---
Test Reason : PRE OP Blood Pressure : */* mmHG Vent. Rate : 54 BPM Atrial Rate : 54 BPM P-R Int : 142 ms QRS Dur : 74 ms QT Int : 430 ms P-R-T Axes : 47 -4 73 degrees QTcB Int : 407 ms Sinus bradycardia Normal ECG Confirmed by Miguelito Moody ([id number]), editor newspaper WARREN CORREA ([id number]) on 03/31/2025 5:49:09 AM Referred By: Nito Viveros Confirmed By: Miguelito Moody
[2025-03-30 15:16] LABS: Absolute Lymphocyte Count 1.68 X10^3/uL (0.83-4.51); Absolute Neutrophil Count 4.3 X10^3/uL (2.0-7.7); Basophil# 0.05 X10^3/uL; Basophil% 0.7 % (0-1); Eosinophil# 0.22 X10^3/uL; Eosinophils% 3.3 % (0-5); Hematocrit 32.5 % (37-47); Hemoglobin 10.1 g/dL (12.0-15.0); Lymphocyte # 1.68 X10^3/ul (0.83-4.51); Mean Corp Hgb Conc 31.1 g/dL (32-36); Mean Corpuscular Hgb 27.7 pg (27.0-32.0); Mean Platelet Vol. 11.8 fl (6.2-12.0); Monocyte# 0.44 X10^3/uL; Monocyte% 6.5 % (0-10); NRBC Flagged by Analyzer 0 % (0-5); Neutrophil # 4.32 X10^3/uL (2.7-7.7); Neutrophil % 64.2 % (47-70); Platelet Count 219 K/mm3 (150-450); RBC Distribution Width CV 14.4 % (11.6-14.6); RBC Distribution Width SD 46.9 fl (35.1-43.9); Red Blood Count 3.65 M/mm3 (4.2-5.4); White Blood Count 6.7 K/mm3 (4.4-11.0)
[2025-03-30 15:43] LABS: Albumin, Serum 4.1 g/dL (3.4-4.8); Anion Gap 10 (5-15); BUN 16 mg/dL (4-19); BUN/Creat Ratio 17.3 RATIO (10-20); Calcium,Total 10.4 mg/dL (7.6-11.0); Carbon Dioxide 23.8 mmol/L (21.0-32.0); Chloride 107 mmol/L (98-108); Creatinine, Serum 0.93 mg/dL (0.70-1.20); EST Glomerular Filtration Rate 61 (>60); Glucose 98 mg/dL (70-99); Potassium 4.2 mmol/L (3.3-5.1); Sodium Level 141 mmol/L (133-145)
== END | disposition home or self-care (01) ==
PROVIDERS: PCP Clinical Nurse Specialist Adult Health; Referring Provider Orthopaedic Surgery; Visit Provider Orthopaedic Surgery
DX: Z01.810 Encounter for preprocedural cardiovascular examination (principal); M17.32 Unilateral post-traumatic osteoarthritis, left knee
CPT/HCPCS: 36415; 71046; 80048; 82040; 85025; 93005

== ENCOUNTER → 2025-06-02 | Outpatient (CLI) | payer MEDICARE, SELFPAY ==
[2025-06-02 14:35] LABS: Hematocrit 31.6 % (37-47); Hemoglobin 9.9 g/dL (12.0-15.0); Immature Granulocytes Count 0.020 X10^3/uL (0.0-0.0); Mean Corp Hgb Conc 31.3 g/dL (32-36); Mean Corpuscular Volume 90.3 fL (81-99); Mean Platelet Vol. 11.2 fl (6.2-12.0); NRBC Flagged by Analyzer 0 % (0-5); Platelet Count 213 K/mm3 (150-450); RBC Distribution Width CV 15.7 % (11.6-14.6); RBC Distribution Width SD 50.2 fl (35.1-43.9); Red Blood Count 3.50 M/mm3 (4.2-5.4); White Blood Count 8.6 K/mm3 (4.4-11.0)
[2025-06-02 15:34] LABS: Albumin, Serum 3.9 g/dL (3.4-4.8); Anion Gap 11 (5-15); BUN 15 mg/dL (4-19); BUN/Creat Ratio 15.1 RATIO (10-20); Calcium,Total 9.8 mg/dL (7.6-11.0); Carbon Dioxide 23.7 mmol/L (21.0-32.0); Chloride 107 mmol/L (98-108); Glucose 97 mg/dL (70-99); Potassium 3.4 mmol/L (3.3-5.1)
== END | disposition home or self-care (01) ==
LOC: LAB 13:50
PROVIDERS: PCP Clinical Nurse Specialist Adult Health; Referring Provider Orthopaedic Surgery; Visit Provider Orthopaedic Surgery
DX: Z01.818 Encounter for other preprocedural examination (principal); M17.32 Unilateral post-traumatic osteoarthritis, left knee
CPT/HCPCS: 36415; 80048; 82040; 85025

== ENCOUNTER 2025-07-06 10:54 | Emergency (ER) | payer MEDICARE, SELFPAY ==
[2025-07-06 10:55] VITALS: BP 143/82; PULSE 57; RESP 14; TEMP 36.2; O2SAT 98; BMI 22.8
--- NOTE | 2025-07-06 11:53 | CT_ITS ---
PROCEDURE: BRAIN/HEAD WITHOUT CONTRAST 07/06/2025 REASON FOR EXAM: TRAUMA TECHNIQUE: Procedure Code: CTBR Modality: CT Procedure: BRAIN/HEAD WITHOUT CONTRAST Coronal and Sagittal reconstruction series were provided. One or more dose reduction techniques were used (e.g., Automated exposure control, adjustment of the mA and/or kV according to patient size, use of iterative reconstruction technique. RADIATION DOSE SUMMARY: CTDlvol: 44 mGy DLP: 796 mGycm COMPARISON: MRI of the brain dated 12/31/2024 FINDINGS: Cerebral parenchyma: Attenuation of the brain parenchyma is normal without evidence for mass, hemorrhage, or midline shift.. Extra-axial spaces: There is no extra-axial collection. Intracranial atherosclerosis identified. Small polyp in the right maxillary Ventricles: The size and configuration of the ventricles and sulci is normal for age. Posterior Fossa: The fourth ventricle is in the midline. The posterior fossa structures including the cerebellum, abhay, medulla and cervicomedullary junction are unremarkable. Calvarium: Unremarkable. No fracture seen. Visualized paranasal sinuses/mastoids: Sinus versus retention cysts. The visualized paranasal sinuses and mastoid air cells are clear. CT/Brain/Head without Contrast IMPRESSION: No acute intracranial abnormality. Reading Location: [id number]
--- NOTE | 2025-07-06 11:53 | CT_ITS ---
PROCEDURE: SPINE CERVICAL WITHOUT CONTRAS 07/06/2025 REASON FOR EXAM: TRAUMA TECHNIQUE: Procedure Code: CTSPC Modality: CT Procedure: SPINE CERVICAL WITHOUT CONTRAS Coronal and Sagittal reconstruction series were provided. One or more dose reduction techniques were used (e.g., Automated exposure control, adjustment of the mA and/or kV according to patient size, use of iterative reconstruction technique. RADIATION DOSE SUMMARY: CTDlvol: 15.9 mGy DLP: 1142 mGycm COMPARISON: 12/30/2024 FINDINGS: There is reversal of the normal cervical lordosis. Mild scoliosis of the cervicothoracic spine present concave to the left apex at C6. There is a 1.2 mm anterolisthesis of C3 on C4, at 1.7 mm retrolisthesis of C5 on C6 and C6 on C7 and anterolisthesis measuring 2 mm at C7-T1. The lateral masses are well aligned. There is a stable lucency present through the left pedicle and transverse process of C3 which is unchanged since previous exam and may reflect a chronic fracture versus a nutrient vessel.. No acute fracture seen through the cervical spine. Multilevel facet arthropathy present mostly on the left at C3-C4, C2-C3, C4-5. Severe disc disease seen through the cervical spine from C5-6 through C6-7 with bilateral foraminal encroachment. There is no jumped facet. No visible rib fracture. Upper thoracic vertebra are intact. Paraspinal soft tissues are unremarkable. Thoracic inlet and airway are normal. There is no lymphadenopathy in the neck. The thyroid gland is unremarkable. Visible salivary gland and visible parotid glands are unremarkable. CT/Spine Cervical without Contras IMPRESSION: No acute fracture through the cervical spine. No change since previous exam. Multilevel facet arthropathy and disc disease, stable. Reading Location: [id number]
[2025-07-06 11:55] VITALS: BP 149/75; PULSE 64; RESP 15; TEMP 36.6; O2SAT 94
[2025-07-06 12:00] VITALS: BP 158/77; PULSE 62; RESP 14; TEMP 36.4; O2SAT 94
--- NOTE | 2025-07-06 12:25 | EDS_ITS ---
HPI History of Present Illness Chief Complaint: Headache Narrative Narrative: 84-year-old female states that she had a fall earlier this morning, few hours ago. She woke up and had to go to the bathroom. She got out of bed too quickly, and ended up falling into her front door. She does not take blood thinners but has an aspirin as her daily regime. She denies loss of consciousness. She complains of neck stiffness. She sustained a skin tear to her left forearm. She has had this happen before and has gone to urgent care where they Steri-Stripped it. She states that she went to urgent care afterwards for them to take care of her skin tear on her left arm. When she mentioned that she hit her head and had a headache, they sent her to the emergency department for evaluation. She states her headache has improved and that she has mild neck soreness and stiffness. Once again denies loss of consciousness. Denies other injuries except for the skin tear on her left forearm. [facility] Medical History Post-menopausal Colitis Shortness of breath on exertion History of irregular heartbeat History of echocardiogram Chest pain Rheumatoid arthritis Osteoporosis Kidney disease Hepatitis Lupus (systemic lupus erythematosus) MDD (major depressive disorder), recurrent, in partial remission Insomnia Wears hearing aid Cancer Anxiety History of steroid therapy Arthritis Anemia High cholesterol Back pain Syncope Migraine headache Lupus Ulcerative colitis Gastric reflux Former smoker History of pain when walking History of edema History of stress test Hypertension Cardiology follow-up encounter Nonobstructive atherosclerosis of coronary artery Fracture of proximal phalanx of left little finger Nonrheumatic mitral (valve) prolapse Collagenous colitis Depression Dyslipidemia Benign essential hypertension Home Medications ?Medication ?Instructions ?Recorded ?Last Taken ?Type omeprazole 20 mg capsule,delayed 20 mg PO BID gerd/UC 03/20/14 12/30/24 08:00 History release 20 mg atorvastatin 20 mg tablet 20 mg PO QHS cholesterol 08/1912/29/24 21:00 History 20 mg aspirin 81 mg tablet,delayed 81 mg PO BREAKFAST heart health 09/21/24 12/30/24 08:14 Rx release #90 tabs 81 mg lisinopril 20 mg tablet 20 mg PO DAILY blood pressur e #90 11/02/24 Unknown Rx tabs sertraline 50 mg tablet 50 mg PO DAILY mood 12/30/24 12/30/24 08:00 History 50 mg triamcinolone acetonide 55 mcg 2 spray intranasal JARAD Y PRN NASAL 12/30/24 Unknown History nasal spray aerosol IRRITATION acetaminophen 500 mg capsule 1,000 mg PO Q8 pain 12/31 Unknown History cyanocobalamin (vitamin B-12) 1,000 mcg PO DAILY suppl ement 12/31/24 Unknown History 1,000 mcg capsule ergocalciferol (vitamin D2) 1,250 1,250 mcg PO QWEEK s upplement 12/31/24 Unknown History mcg (50,000 unit) capsule amlodipine 5 mg tablet 10 mg (2 x 5 mg) PO DAILY bp #60 01/01/25 Unknown Rx tabs carvedilol 3.125 mg tablet 6.125 mg (1.96 x 3.125 mg) PO BID 01/01/25 Unknown Rx heart #180 tabs clonazepam 0.5 mg tablet (Klonopin) 0.5 mg PO QHS #5 t abs 04/16/25 Unknown Rx clonazepam 0.5 mg tablet 0.5 mg PO QHS sleep #30 tabs 04/27/25 Unknown Rx folic acid 1 mg tablet 1 mg PO DAILY 07/06/25 Unkno wn History methotrexate sodium (PF) 25 mg/mL 10 mg subcut QWEEK 0 07/06/25 Unknown History injection solution [id number] 3.5 drp 07/06/25 Unknown H istory mg/mL-10,000 unit/mL-0.1% eye drops ondansetron HCl 4 mg tablet 4 mg PO Q12H PRN PRN 07/06 Unknown History nausea/vomiting Allergy/AdvReac Type Severity Reaction Status Date / Time hydrocodone (From Vicodin) Allergy Intermediate Itching Verified 07/06/25 10:55 adhesive tape Allergy Rash Verified 07/06/25 10:55 aripiprazole (From Abilify) Allergy mental Verified 07/06/25 10:55 status change atorvastatin calcium (From Allergy Unknown Verified 07/06/25 10:55 Lipitor) Beta-Blockers Allergy Unknown Verified 07/06/25 10:55 (Beta-Adrenergic Bloc cefaclor (From Ceclor) Allergy Unknown Verified 07/06/25 10:55 clarithromycin (From Biaxin) Allergy unknown Verified 07/06/25 10:55 erythromycin base Allergy NEEDS Verified 07/06/25 10:55 FOLLOW-UP guaifenesin (From Entex LA) Allergy unknown Verified 07/06/25 10:55 phenylephrine (From Entex LA) Allergy unknown Verified 07/06/25 10:55 phenylpropanolamine (From Allergy unknown Verified 07/06/25 10:55 Entex LA) Sulfa (Sulfonamide Allergy Hives Verified 07/06/25 10:55 Antibiotics) Tetracyclines Allergy Unknown Verified 07/06/25 10:55 oxycodone AdvReac NEEDS Verified 07/06/25 10:55 FOLLOW-UP propoxyphene (From Darvon) AdvReac Nausea Verified 07/06/25 10:55 Family History Father CAD (coronary artery disease) Myocardial infarction Hypertension Mother Hypertension Myocardial infarction CAD (coronary artery disease) Daughter Depression Diabetes Seizures Surgical History Hx of surgical procedure Hx of colonoscopy Hx of right cataract extraction Hx of left cataract extraction Hx of cholecystectomy Hx of right knee surgery History of left heart catheterization (11/01/14) H/O arthroscopic knee surgery History of tubal ligation History of tonsillectomy History of hysterectomy Social History household members: none Smoking Status: Former smoker how long ago did patient quit smokin + years ago alcohol intake: current alcohol intake frequency: holidays/special occasions only Alcohol type: wine substance use type: does not use caffeine: Yes Type: carbonated beverages Number of servings: 6 ROS ROS ED ROS Narrative Review of systems positive for skin tear to left arm. Hit head but denies loss of consciousness. Had headache that has improved. Positive neck soreness and stiffness. No other injuries. States is here because sent by urgent care for headache and head injury. EXAM Physical Exam Narrative Exam Narrative: GCS 15. ABCs are intact. Head is normocephalic and atraumatic. PERRL EOMI. Full range of motion of neck without pain. No vertebral point tenderness or bony step-off. Able to raise arms above head without difficulty. Cardiovascular examination reveals mild bradycardia. Lungs are clear to auscultation bilaterally. Positive Steri-Stripped large skin tear on left forearm without active bleeding. Const Vital Signs: 07/06/25 10:55 07/06/25 11:55 07/06/25 12:00 Temperature 97.1 F L 97.8 F 97.5 F L Temperature Source Temporal Oral Oral Pulse Rate 57 L 64 62 Respiratory Rate 14 15 14 Blood Pressure 143/82 H 149/75 H 158/77 H Blood Pressure Mean 102 99 104 Pulse Ox 98 94 94 Oxygen Delivery Method Room Air Room Air Room Air 07/06/25 13:00 Temperature Temperature Source Pulse Rate 57 L Respiratory Rate 18 Blood Pressure 149/75 H Blood Pressure Mean 99 Pulse Ox 96 Oxygen Delivery Method Room Air MDM MDM MDM Narrative Medical decision making narrative: Differential diagnosis includes but not limited to closed head injury versus mild concussion versus intracranial hemorrhage. She may have cervical strain versus fracture as well. I have low clinical suspicion for fracture. CT of the brain and CT of the C-spine were obtained. I reviewed the radiology reports of the CT of the brain which shows no evidence of an acute intracranial abnormality, no skull fracture, no intracranial hemorrhage. I also reviewed the radiology report of the cervical spine which shows no evidence of an acute fracture and no significant change from previous exam, multi facet arthroscopy and disc disease that is stable. Upon repeat examination, she states that she started having slightly increased neck pain which I think is more of a cervical strain. She states she has arthritis throughout all her body for which she usually takes Tylenol 1 g. She was given this in the emergency department. I do feel she can be discharged safely home with follow-up to her primary care provider. Her skin tear has already been attended to by urgent care. Return instructions to the emergency department were reviewed. Disposition is discharged home in stable condition. History & Record Review Discussion w/independent historian: Patient Additional record(s) reviewed:: Prior ED visit (Noncontributory to current chief complaint) Radiography Diagnostic Testing: Clinical Impression(s) from Imaging Studies Brain CT 07/06/25 11:53 IMPRESSION: No acute intracranial abnormality. Reading Location: [facility] Cervical Spine CT 07/06/25 11:53 IMPRESSION: No acute fracture through the cervical spine. No change since previous exam. Multilevel facet arthropathy and disc disease, stable. Reading Location: [facility] Discharge Plan Triage Chief Complaint: Headache ED Provider: Jun Arsmtrong Dx/Rx/DC Orders Clinical Impression: Fall, Closed head injury, Cervical strain Instructions: ED Head Injury (Adult), ED Neck Sprain or Strain, ED Fall Prevention Prescriptions: No Action atorvastatin 20 mg tablet 20 mg PO QHS omeprazole 20 MG capsule 20 mg PO BID Patient Comments: GERD triamcinolone acetonide 55 mcg aerosol,spray 2 spray INTRANASAL DAILY PRN sertraline 50 mg tablet 50 mg PO DAILY ergocalciferol (vitamin D2) 1,250 mcg (50,000 unit) capsule 1,250 mcg PO QWEEK cyanocobalamin (vitamin B-12) 1,000 mcg capsule 1,000 mcg PO DAILY acetaminophen 500 mg capsule 1,000 mg PO Q8 amlodipine 5 mg tablet 10 mg PO DAILY Qty: 60 0RF carvedilol 3.125 mg tablet 6.125 mg PO BID Qty: 180 3RF Rx Instructions: must administer with a meal/food ondansetron HCl 4 mg tablet 4 mg PO Q12H PRN PRN (Reason: nausea/vomiting) neomycin-polymyxin B-dexameth 3.5mg/mL-10,000 unit/mL-0.1 % drops,suspension Patient Comments: instill 1 drop into left eye three times a day for 1 WEEK folic acid 1 mg tablet 1 mg PO DAILY methotrexate sodium (PF) 25 mg/mL solution 10 mg subcut QWEEK aspirin 81 mg tablet,delayed release (DR/EC) 81 mg PO BREAKFAST Qty: 90 3RF lisinopril 20 mg tablet 20 mg PO DAILY Qty: 90 3RF clonazepam [Klonopin] 0.5 mg tablet 0.5 mg PO QHS Qty: 5 0RF clonazepam 0.5 mg tablet 0.5 mg PO QHS Qty: 30 3RF Primary Care Provider: Dee Jo Referrals: Dee Jo, [employer] [Primary Care Provider] - 1 Week if not improving Activity Restrictions/Additional Instructions: Continue your Tylenol as needed for pain. Return with new or worsening symptoms. Print Language: Japanese Disposition Disposition: Home, Self Care
[2025-07-06 13:00] VITALS: BP 149/75; PULSE 57; RESP 18; O2SAT 96
[2025-07-06 13:45] VITALS: BP 164/68; PULSE 60; RESP 18; TEMP 36.2; O2SAT 98
== END 2025-07-06 13:48 | disposition home or self-care (01) ==
PROVIDERS: Emergency Provider Emergency Medicine; PCP Clinical Nurse Specialist Adult Health; Visit Provider Emergency Medicine
DX: S16.1XXA Strain of muscle, fascia and tendon at neck level, initial encounter (principal); M06.9 Rheumatoid arthritis, unspecified; M32.9 Systemic lupus erythematosus, unspecified; S51.812A Laceration without foreign body of left forearm, initial encounter; F33.41 Major depressive disorder, recurrent, in partial remission; S09.90XA Unspecified injury of head, initial encounter; W01.0XXA Fall on same level from slipping, tripping and stumbling without subsequent striking against object, initial encounter; I10 Essential (primary) hypertension; I34.1 Nonrheumatic mitral (valve) prolapse; K21.9 Gastro-esophageal reflux disease without esophagitis; F41.9 Anxiety disorder, unspecified; I25.10 Atherosclerotic heart disease of native coronary artery without angina pectoris; E78.00 Pure hypercholesterolemia, unspecified; M81.0 Age-related osteoporosis without current pathological fracture; Z79.82 Long term (current) use of aspirin; Z87.19 Personal history of other diseases of the digestive system; Z90.49 Acquired absence of other specified parts of digestive tract; Z79.899 Other long term (current) drug therapy; Z87.891 Personal history of nicotine dependence
CPT/HCPCS: 70450; 72125; 99282

== ENCOUNTER → 2025-08-23 | Outpatient (CLI) | payer MEDICARE, SELFPAY ==
[2025-08-23 17:19] LABS: Anion Gap 8 (5-15); BUN 15 mg/dL (4-19); BUN/Creat Ratio 18.9 RATIO (10-20); Calcium,Total 10.6 mg/dL (7.6-11.0); Carbon Dioxide 27.2 mmol/L (21.0-32.0); Chloride 107 mmol/L (98-108); Glucose 97 mg/dL (70-99); Potassium 4.7 mmol/L (3.3-5.1)
== END | disposition home or self-care (01) ==
LOC: LAB 15:28
PROVIDERS: PCP Clinical Nurse Specialist Adult Health; Referring Provider Physician Assistant; Visit Provider Physician Assistant
DX: Z01.818 Encounter for other preprocedural examination (principal)
CPT/HCPCS: 36415; 80048

== ENCOUNTER 2025-09-03 13:40 | Inpatient (IN) | payer MEDICARE, SELFPAY ==
[2025-09-03 14:07] VITALS: BP 150/62; PULSE 66; RESP 16; TEMP 36.8; O2SAT 100; BMI 23.8
--- NOTE | 2025-09-03 14:29 | HP.PCM_ITS ---
HPI - General General Date of Admission: 09/03/25 Date of Service: 09/03/25 Chief Complaint: Here for rehabilitation. HPI Narrative BERNY TOLENTINO, is a 84 Female who presents with followin08/31/2025 Admit [facility]. 08/31/2025 Dr. Nito Viveros performed left total knee arthroplasty. 09/01/2025 Non cardiac chest pain, resolved. Hypoxia requiring oxygen 3 liters nasal cannula, order Chest X-ray. Wean oxygen as tolerated, encouraged incentive spirometry. TEDs, SCDs, Aspirin 81mg po bid x 1 month for DVT prophylaxis. PT/OT, WBAT. Increase Tramadol 50mg to 100mg q4h prn, Tylenol 1000mg 3 times daily for pain. WBC 12.6, reactive. 09/02/2025 CT chest done for hypoxia. CT chest negative pulmonary embolism, some atelectasis. Wean oxygen as tolerated, encourage incentive spirometry. Continue home blood pressure medications. PT/OT SNF. 09/03/2025 Admit to TCU with debility, here for rehabilitation, strengthening, prior to discharge home alone. [facility] Medical History (Updated 09/03/25 @ 14:[address] Deondre Murdock MD) TIA (transient ischemic attack) Post-menopausal Colitis Shortness of breath on exertion History of irregular heartbeat History of echocardiogram Chest pain Rheumatoid arthritis Osteoporosis Kidney disease Hepatitis Lupus (systemic lupus erythematosus) MDD (major depressive disorder), recurrent, in partial remission Insomnia Wears hearing aid Cancer Anxiety History of steroid therapy Arthritis Anemia High cholesterol Back pain Syncope Migraine headache Lupus Ulcerative colitis Gastric reflux Former smoker History of pain when walking History of edema History of stress test Hypertension Cardiology follow-up encounter Nonobstructive atherosclerosis of coronary artery Fracture of proximal phalanx of left little finger Nonrheumatic mitral (valve) prolapse Collagenous colitis Depression Dyslipidemia Benign essential hypertension Home Medications Medication Instructions Recorded Last Taken Type omeprazole 20 mg capsule,delayed 20 mg PO BID gerd/UC 03/20/14 12/30/24 08:00 History release 20 mg atorvastatin 20 mg tablet 20 mg PO QHS cholesterol 08/1912/29/24 21:00 History 20 mg sertraline 50 mg tablet 50 mg PO DAILY mood 12/30/24 12/30/24 08:00 History 50 mg triamcinolone acetonide 55 mcg 2 spray intranasal JARAD Y PRN NASAL 12/30/24 Unknown History nasal spray aerosol IRRITATION acetaminophen 500 mg capsule 1,000 mg PO Q6H PRN pain 12/31/24 Unknown History cyanocobalamin (vitamin B-12) 1,000 mcg PO DAILY suppl ement 12/31/24 Unknown History 1,000 mcg capsule ergocalciferol (vitamin D2) 1,250 1,250 mcg PO QWEEK s upplement 12/31/24 Unknown History mcg (50,000 unit) capsule clonazepam 0.5 mg tablet (Klonopin) 0.5 mg PO QHS #5 t abs 04/16/25 Unknown Rx clonazepam 0.5 mg tablet 0.5 mg PO QHS sleep #30 tabs 04/27/25 Unknown Rx folic acid 1 mg tablet 1 mg PO DAILY supplement 07/22 Unknown History methotrexate sodium (PF) 25 mg/mL 10 mg subcut QWEEK a rthritis 07/06/25 Unknown History injection solution ondansetron HCl 4 mg tablet 4 mg PO Q12H PRN PRN 07/06 Unknown History nausea/vomiting carvedilol 6.25 mg tablet 6.25 mg PO BID BP/heart rate 08/03/25 Unknown History lisinopril 40 mg tablet 40 mg PO QDAY BP 08/03/25 Un known History mirtazapine 7.5 mg tablet 7.5 mg PO QHS #30 tabs 08/04 Unknown Rx amlodipine 5 mg tablet 5 mg PO DAILY bp 09/03/25 Un known History aspirin 81 mg tablet,delayed 81 mg PO BID heart health 09/03/25 Unknown History release sennosides 8.6 mg-docusate sodium 1 tab-cap PO BID bow els 09/03/25 Unknown History 50 mg tablet (Senna with Docusate Sodium) tramadol 50 mg tablet 100 mg PO Q4H PRN PRN pain ( scale 09/03/25 Unknown History score 6-10) Allergy/AdvReac Type Severity Reaction Status Date / Time hydrocodone (From Vicodin) Allergy Intermediate Itching Verified 08/04/25 07:29 adhesive tape Allergy Rash Verified 08/04/25 07:29 aripiprazole (From Abilify) Allergy mental Verified 08/04/25 07:29 status change atorvastatin calcium (From Allergy Unknown Verified 08/04/25 07:29 Lipitor) Beta-Blockers Allergy Unknown Verified 08/04/25 07:29 (Beta-Adrenergic Bloc cefaclor (From Ceclor) Allergy Unknown Verified 08/04/25 07:29 clarithromycin (From Biaxin) Allergy unknown Verified 08/04/25 07:29 erythromycin base Allergy NEEDS Verified 08/04/25 07:29 FOLLOW-UP guaifenesin (From Entex LA) Allergy unknown Verified 08/04/25 07:29 phenylephrine (From Entex LA) Allergy unknown Verified 08/04/25 07:29 phenylpropanolamine (From Allergy unknown Verified 08/04/25 07:29 Entex LA) Sulfa (Sulfonamide Allergy Hives Verified 08/04/25 07:29 Antibiotics) Tetracyclines Allergy Unknown Verified 08/04/25 07:29 oxycodone AdvReac NEEDS Verified 08/04/25 07:29 FOLLOW-UP propoxyphene (From Darvon) AdvReac Nausea Verified 08/04/25 07:29 Family History Father CAD (coronary artery disease) Myocardial infarction Hypertension Mother Hypertension Myocardial infarction CAD (coronary artery disease) Daughter Depression Diabetes Seizures Surgical History (Updated 09/03/25 @ 14:[address] Deondre Murdock MD) History of total left knee replacement Hx of surgical procedure Hx of colonoscopy Hx of right cataract extraction Hx of left cataract extraction Hx of cholecystectomy Hx of right knee surgery History of left heart catheterization (11/01/14) H/O arthroscopic knee surgery History of tubal ligation History of tonsillectomy History of hysterectomy Social History household members: none Smoking Status: Former smoker how long ago did patient quit smokin + years ago alcohol intake: current alcohol intake frequency: holidays/special occasions only Alcohol type: wine substance use type: does not use caffeine: Yes Type: carbonated beverages Number of servings: 6 Vital Signs Vital Signs Vital Signs: 09/03/25 14:07 Temperature 98.3 F Temperature Source Oral Pulse Rate 66 Respiratory Rate 16 Blood Pressure 150/62 H Blood Pressure Mean 91 Blood Pressure Source Monitor Blood Pressure Position Supine Blood Pressure Location Right Arm Pulse Ox 100 Oxygen Delivery Method Nasal Cannula Weight Weight: 68.946 kg Body Mass Index (BMI) 23.8 Assessment & Plan Assessment/Plan (1) Debility: (2) Status post total left knee replacement: (3) Atypical chest pain: (4) Acute respiratory failure with hypoxia: (5) Atelectasis: (6) Depression: (7) Insomnia: (8) Anxiety: (9) Coronary artery disease: (10) Essential (primary) hypertension: (11) TIA (transient ischemic attack): (12) GERD (gastroesophageal reflux disease): (13) Hyperlipidemia, unspecified: (14) B12 deficiency: (15) Rheumatoid arthritis: (16) Ulcerative colitis: PLAN: Plan 84 year old female with below past medical history hospitalized for left total knee replacement 08/31/[address] Nito Viveros, postoperative course complicated by non cardiac chest pain, acute respiratory failure with hypoxia, ruled out pulmonary embolism, admitted to TCU with debility, here for rehabilitation, strengthening, prior to discharge home alone. * Debility - PT/OT. * Pain - Tylenol 1000mg q8, Tramadol 100mg q4 prn. * Bowel - senna/colace 2 tablets bid. * Adult immunization - Administer pneumonia vaccine, covid vaccine, flu vaccine as appropriate. * DVT prophylaxis - Aspirin 81mg bid thru 10/01/2025. * Hypertension - Coreg 6.25mg bidcm, Lisinopril 40mg daily, Amlodipine 5mg daily. * Hyperlipidemia - Atorvastatin 20mg qhs. * Vitamin B12 deficiency - B12 1000mcg daily. * Vitamin D deficiency - Vitamin D 1.25mg qweek. * Rheumatoid arthritis - MTX 10mg sc qweek, Folic acid 1mg daily. * Nausea - Zofran odt 4mg q12h prn. * GERD - Pantoprazole 20mg bid. * Cellulitis left knee - Clindamycin 300mg tid x 7 days. * Atypical chest pain - Monitor * Acute respiratory failure with hypoxia - Wean oxygen as tolerated. The following psychotropic medication was present on admission: Clonazepam 0.5mg qhs. Psychotropic medication therapy is indicated for a diagnosis of: Anxiety/insomnia. Based on my clinical evaluation, continuation of the medication is necessary at this time. Gradual dose reduction plan (select one): ____ GDR will be attempted. Will monitor patient symptoms and behaviors in response to GDR. __x__ GRD contraindicated. Reason contraindicated: stable chronic long ter,m use. The following psychotropic medication was present on admission: Sertraline 50mg daily. Psychotropic medication therapy is indicated for a diagnosis of: Major Depression. Based on my clinical evaluation, continuation of the medication is necessary at this time. Gradual dose reduction plan (select one): ____ GDR will be attempted. Will monitor patient symptoms and behaviors in response to GDR. __x__ GRD contraindicated. 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
[2025-09-03 17:05] VITALS: BP 163/70; PULSE 68; RESP 18; TEMP 36.6; O2SAT 94
[2025-09-03 18:55] VITALS: BMI 23.5
[2025-09-03 20:16] VITALS: PULSE 60; O2SAT 97
[2025-09-03] MEDS: Aspirin E.C. 81 MG Tablet PO (20:19)
[2025-09-04 06:53] LABS: Hematocrit 26.6 % (37-47); Hemoglobin 8.8 g/dL (12.0-15.0); Immature Granulocytes Count 0.060 X10^3/uL (0.0-0.0); Mean Corp Hgb Conc 33.1 g/dL (32-36); Mean Corpuscular Volume 98.5 fL (81-99); Mean Platelet Vol. 10.7 fl (6.2-12.0); NRBC Flagged by Analyzer 0 % (0-5); Platelet Count 177 K/mm3 (150-450); RBC Distribution Width CV 14.6 % (11.6-14.6); RBC Distribution Width SD 51.4 fl (35.1-43.9); Red Blood Count 2.70 M/mm3 (4.2-5.4); White Blood Count 9.7 K/mm3 (4.4-11.0)
[2025-09-04 07:37] LABS: Anion Gap 7 (5-15); BUN 21 mg/dL (4-19); BUN/Creat Ratio 28.0 RATIO (10-20); Calcium,Total 9.8 mg/dL (7.6-11.0); Carbon Dioxide 26.0 mmol/L (21.0-32.0); Chloride 102 mmol/L (98-108); Estimated Creatinine Clearance 52.72 ml/min (50-250); Glucose 105 mg/dL (70-99); Potassium 4.0 mmol/L (3.3-5.1)
[2025-09-04] MEDS: Aspirin E.C. 81 MG Tablet PO ×2 (08:18→23:03)
[2025-09-04] MEDS: Ergocalciferol 1.25 MG (50, 000 UNIT) Capsule PO (08:20)
[2025-09-04 10:00] VITALS: BP 120/57; PULSE 66; RESP 18; TEMP 36.8; O2SAT 93
[2025-09-04] MEDS: Tuberculin,Purif.prot.deriv. 50 TU/ML Vial 0.1 ML ID (14:20)
[2025-09-04 14:30] VITALS: O2SAT 97
[2025-09-04 20:04] VITALS: PULSE 68; O2SAT 95
[2025-09-04] MEDS: Senna/Docusate Sodium 1 Tablet 2 TABLET PO (23:02)
[2025-09-05 06:10] LABS: Hematocrit 26.7 % (37-47); Hemoglobin 9.2 g/dL (12.0-15.0)
[2025-09-05 06:47] VITALS: PULSE 74; O2SAT 98
[2025-09-05] MEDS: Aspirin E.C. 81 MG Tablet PO ×2 (09:12→22:21)
[2025-09-05] MEDS: Senna/Docusate Sodium 1 Tablet 2 TABLET PO (09:16)
[2025-09-05 16:00] VITALS: BP 149/53; PULSE 65; RESP 16; TEMP 37.4; O2SAT 97
[2025-09-05 19:49] VITALS: PULSE 65; O2SAT 97
[2025-09-06 05:43] LABS: Hematocrit 28.1 % (37-47); Hemoglobin 9.4 g/dL (12.0-15.0)
[2025-09-06 08:36] VITALS: BP 142/65; PULSE 73; RESP 16; TEMP 37; O2SAT 95
[2025-09-06] MEDS: Aspirin E.C. 81 MG Tablet PO ×2 (08:39→21:41)
[2025-09-06] MEDS: Methotrexate Pf 50 MG/2ML VIAL 10 MG SC (09:38)
--- NOTE | 2025-09-06 12:33 | NURSING ---
sat 97% on rm air while resting in bed, left oxygen off at this time.
[2025-09-06 12:34] VITALS: O2SAT 97
--- NOTE | 2025-09-06 15:22 | PHA.CONS_ITS ---
Documented by User: Yadi Hall 09/06/25 15:44 TCU RX Drug Regimen Review Subjective/Objective Subjective/Objective Subjective: TCU Admission. 84 YOF presented to outside hospital for surgery. Hospitalized for left total knee replacement 08/31/[address] Nito Viveros, postoperative course complicated by non cardiac chest pain, acute respiratory failure with hypoxia, ruled out pulmonary embolism. Admitted to TCU with debility for strengthening and rehabilitation. Objective: Allergies hydrocodone (From Vicodin) Allergy (Intermediate, Verified 08/04/25 07:29) Itching adhesive tape Allergy (Verified 08/04/25 07:29) Rash aripiprazole (From Abilify) Allergy (Verified 08/04/25 07:29) mental status change atorvastatin calcium (From Lipitor) Allergy (Verified 08/04/25 07:29) Unknown Beta-Blockers (Beta-Adrenergic Bloc Allergy (Verified 08/04/25 07:29) Unknown cefaclor (From Ceclor) Allergy (Verified 08/04/25 07:29) Unknown clarithromycin (From Biaxin) Allergy (Verified 08/04/25 07:29) unknown erythromycin base Allergy (Verified 08/04/25 07:29) NEEDS FOLLOW-UP guaifenesin (From Entex LA) Allergy (Verified 08/04/25 07:29) unknown phenylephrine (From Entex LA) Allergy (Verified 08/04/25 07:29) unknown phenylpropanolamine (From Entex LA) Allergy (Verified 08/04/25 07:29) unknown Sulfa (Sulfonamide Antibiotics) Allergy (Verified 08/04/25 07:29) Hives Tetracyclines Allergy (Verified 08/04/25 07:29) Unknown oxycodone Adverse Reaction (Verified 08/04/25 07:29) NEEDS FOLLOW-UP propoxyphene (From Darvon) Adverse Reaction (Verified 08/04/25 07:29) Nausea Current Medications Generic Name Dose Route Start Last Admin Trade Name Freq PRN Reason Stop Dose Admin Acetaminophen 1,000 mg 09/03/25 22:00 09/06/25 14:13 Acetaminophen 500 Mg Tablet PO 1,000 mg Q8 CRYSTAL Administration Amlodipine Besylate 5 mg 09/04/25 10:00 09/06/25 08:39 Amlodipine 5 Mg Tablet PO 5 mg DAILY CRYSTAL Administration Protocol Aspirin 81 mg 09/03/25 22:00 09/06/25 08:39 Aspirin E.C. 81 Mg Tablet PO 10/01/25 23:59 81 mg BID CRYSTAL Administration Atorvastatin Calcium 20 mg 09/03/25 22:00 09/05/25 22:21 Atorvastatin Calcium 20 Mg Tablet PO 20 mg QHS [facility] Administration Carvedilol 6.25 mg 09/03/25 17:00 09/06/25 08:39 Carvedilol 6.25 Mg Tablet PO 6.25 mg BIDCM [facility] Administration Protocol Clindamycin HCl 300 mg 09/03/25 15:15 09/06/25 14:13 Clindamycin Hcl 150 Mg Capsule PO 09/10/25 15:16 300 mg TID CRYSTAL Administration Clonazepam 0.5 mg 09/03/25 22:00 09/05/25 22:20 Clonazepam 0.5 Mg Tablet PO 0.5 mg QHS [facility] Administration Cyanocobalamin 1,000 mcg 09/04/25 10:00 09/06/25 08:39 Cyanocobalamin 500 Mcg Tablet PO 1,000 mcg DAILY [facility] Administration Ergocalciferol 1.25 mg 09/04/25 10:00 09/04/25 08:20 Ergocalciferol 1.25 Mg (50, 000 Unit) Capsule PO 1.25 mg Sa@1000 [facility] Administration Folic Acid 1 mg 09/04/25 08:00 09/06/25 08:39 Folic Acid 1 Mg Tablet PO 1 mg BREAKFAST CRYSTAL Administration Lisinopril 40 mg 09/04/25 10:00 09/06/25 08:40 Lisinopril 40 Mg Tablet PO 40 mg DAILY CRYSTAL Administration Protocol Methotrexate Sodium 10 mg 09/06/25 10:00 09/06/25 09:38 Methotrexate Pf 50 Mg/2ml Vial SC Not Given Mo@1000 [facility] Ondansetron HCl 4 mg 09/03/25 14:45 Ondansetron Odt 4 Mg Tablet PO Q12H PRN PRN nausea/vomiting Pantoprazole Sodium 20 mg 09/03/25 22:00 09/06/25 08:39 Pantoprazole Sodium 20 Mg Tablet PO 20 mg BID [facility] Administration Senna/Docusate Sodium 2 tablet 09/03/25 22:00 09/06/25 08:40 Senna/Docusate Sodium 1 Tablet PO Not Given BID [facility] Sertraline HCl 50 mg 09/04/25 10:00 09/06/25 08:47 Sertraline 50 Mg Tablet PO 50 mg DAILY [facility] Administration Tramadol HCl 100 mg 09/03/25 14:30 09/03/25 16:59 Tramadol 50 Mg Tablet PO 100 mg Q4H PRN PRN Administration pain (scale score 6-10) Tuberculin PPD 0.1 ml 09/11/25 10:00 Tuberculin,Purif.Prot.Deriv. 50 Tu/Ml Vial ID 09/11/25 10:01 X1 ONE Problem List Ulcerative colitis (Acute) Rheumatoid arthritis (Acute) B12 deficiency (Acute) Hyperlipidemia, unspecified (Acute) GERD (gastroesophageal reflux disease) (Acute) TIA (transient ischemic attack) (Acute) Essential (primary) hypertension (Acute) Coronary artery disease (Acute) Anxiety (Acute) Depression (Acute) Atelectasis (Acute) Acute respiratory failure with hypoxia (Acute) Status post total left knee replacement (Acute) Debility (Acute) Insomnia (Acute) Vital Signs Temp Pulse Resp BP Pulse Ox O2 Del Method O2 Flow Rate 98.6 F 73 16 142/65 H 97 Room Air 1 09/06/25 08:36 09/06/25 08:36 09/06/25 08:36 09/06/25 08:36 09/06/25 12:34 09/06/25 12:34 09/05/25 19:49 Oxygen Flow Rate (L/min) 1 Oxygen Delivery Method Room Air Weight: 68.039 kg Body Mass Index (BMI) 23.5 Sodium 136 mmol/L (133-145) 09/04/25 06:29 Potassium 4.0 mmol/L (3.3-5.1) 09/04/25 06:29 Chloride 102 mmol/L (98-108) 09/04/25 06:29 Carbon Dioxide 26.0 mmol/L (21.0-32.0) 09/04/25 06:29 Anion Gap 7 (5-15) 09/04/25 06:29 BUN 21 mg/dL (4-19) H 09/04/25 06:29 Creatinine 0.74 mg/dL (0.70-1.20) 09/04/25 06:29 Est GFR (MDRD) Non-Af 80 (>60) 09/04/25 06:29 BUN/Creatinine Ratio 28.0 RATIO (10-20) H 09/04/25 06:29 Glucose 105 mg/dL (70-99) H 09/04/25 06:29 Assessment/Plan: 1. Pain: acetaminophen 1000mg PO Q8 and tramadol 100mg PO Q4H PRN pain 6-10. Resident has received the following prn pain doses since admission; 1 dose of tramadol for a pain score of 7 in the knee. Monitor pain scores before/after prn administration for response, PRN pain medication usage, symptoms of pain/resident distress and ability to participate in therapy. Monitor for constipation (last BM:09/05/25), respiratory depression (current RR range:16-18), falls and sedation/delirium (Beers). Last LFTs:12/31/24. Check LFTs if resident develops symptoms of hepatoxicity. Consider monitoring LFTs if patient using > 3 gm/day of acetaminophen for prolonged period. Do not exceed 4000 mg in 24 hours. 2. Bowel: senna/docusate 2T PO BID. Last document bowel movement:09/05/25. Monitor for usage of prn medications, abdominal pain, frequency of bowel movements, diarrhea. Recommend holding bowel regimen if resident develops diarrhea. Resident has refused 4/6 doses. 3. DVT prophylaxis: aspirin 81mg PO BID thru 10/01/25. Please continue to monitor for S/S of bruising/bleeding/DVT, hemoglobin (last 9.4g/dL). 4. Cellulitis of left knee: clindamycin 300mg PO TID thru 09/10/25. Please continue to monitor for S/S of worsening infection, diarrhea (black box warning for C. diff). 5. Hypertension: carvedilol 6.25mg PO BIDCM, lisinopril 40mg PO daily and amlodipine 5mg PO daily. Monitor for bradyarrhythmia, fatigue, sleep disturbance and for new/worsening heart failure symptoms. For diabetic patients, monitor glucose. Monitor serum potassium (last K =4mmol/L), renal function (SCr =0.74mg/dL), for cough and symptoms of angioedema. Monitor for development of peripheral edema. BP range since admission =120/57-163/70, HR range since admission [60-74]. BP control appropriate at this time. Monitor blood pressure, heart rate, symptoms of orthostasis, dizziness. Consider checking orthostatic blood pressure and implementing fall precautions with any indication of orthostatic hypotension. 6. Hyperlipidemia: atorvastatin 20mg PO QHS. Last FLP < 1 year ago (07/2023). Please consider FLP to determine efficacy of current lipid-lowering regimen. Thanks. Please continue to monitor for muscle pain and LFTs (last 12/31/24). 7. Rheumatoid arthritis: methotrexate 10mg SC weekly and folic acid 1mg PO daily. Please continue to monitor for S/S of RA, CBC, LFTs, rash, S/S of infection. 8. GERD: pantoprazole 20mg PO BID. Monitor for diarrhea (consider possibility of C. diff if develops). Consider serum magnesium level and B12 level with long- term use if indicated. If clinically appropriate, consider dose reduction/weaning of medication due to senior living risks of C. diff and fractures (Beers). 9. Nausea: ondansetron 4mg PO Q12H PRN nausea/vomiting. Resident has not used any prn doses at this time. Please continue to monitor for S/S of nausea, vomiting and PRN usage. 10. Vitamin B12 and D deficiencies: cyanocobalamin 1000mcg PO daily and ergocalciferol 1.25mg PO weekly. Please consider ordering vitamin B12 and D levels as there are no current levels in the chart. Thanks. Assessment/Plan for indications treated with psychotropic medications: 1. Anxiety/insomnia: clonazepam 0.5mg PO QHS. Please see physician note regarding GDR. Monitor for sedation, mental status and cognition. Monitor for falls (risk factor for falls) and implement fall prevention strategies. Monitor for respiratory depression. RR range since admission = 16-18. Monitor for efficacy including resident symptoms, behaviors and indications of distress. Monitor for tolerability including mental status, cognition, excessive sleepiness, withdrawal or decreased participation in activities and decline in physical functioning. Maximize use of nonpharmacologic/behavioral interventions to facilitate dose reduction or discontinuation as appropriate. Please evaluate the appropriateness of GDR unless contraindicated. If a ppropriate, GDR should be attempted in 2 separate quarters within the first year of use or admission to TCU. If GDR attempted, monitor resident symptoms/behaviors. 2. Major depression: sertraline 50mg PO daily. Please see physician note regarding GDR. Monitor for diarrhea, nausea, headache, anxiety or drowsiness, suicidal thoughts or behaviors (Boxed Warning), symptoms of bleeding, symptoms of serotonin syndrome (including agitation, confusion, hyperreflexia, rigidity/myoclonus, tremor, tachycardia, tachypnea), sodium levels (last Na =136mmol/L). Monitor for efficacy including resident symptoms, behaviors and indications of distress. Monitor for tolerability including mental status, cognition, excessive sleepiness, withdrawal or decreased participation in activities and decline in physical functioning. Maximize use of nonpharmacologic/behavioral interventions to facilitate dose reduction or discontinuation as appropriate. Please evaluate the appropriateness of GDR unless contraindicated. If appropriate, GDR should be attempted in 2 separate quarters within the first year of use or admission to TCU. If GDR attempted, monitor resident symptoms/behaviors. Medical chart and medication regimen reviewed. The following medication irregularities or issues were identified: 1. Atorvastatin 20mg PO QHS. Last FLP < 1 year ago (07/2023). Please consider FLP to determine efficacy of current lipid-lowering regimen. Thanks. 2. Cyanocobalamin 1000mcg PO daily and ergocalciferol 1.25mg PO weekly. Please consider ordering vitamin B12 and D levels as there are no current levels in the chart. Thanks. Date Date of Note: 09/06/25 Documented by User: Dr. Deondre Murdock MD 09/06/25 19:05 TCU RX Drug Regimen Review Provider Comments Provider responsibility Provider Comments to Recommendations by Pharmacy Agree
[2025-09-06 18:27] VITALS: BP 155/65; PULSE 75
[2025-09-06] MEDS: Senna/Docusate Sodium 1 Tablet 2 TABLET PO (21:39)
[2025-09-06 22:00] VITALS: PULSE 64; RESP 16; O2SAT 98
[2025-09-07 06:31] LABS: Cholesterol 111 mg/dL (<=200); Low Density Lipoprotein Calc. 46 mg/dL; Triglycerides 147 mg/dL; Very Low Density Lipoprotein 29 mg/dL (5-40); Vitamin B12 723 pg/mL (180-914); Vitamin D,25 Hydroxy 23.4 ng/mL (30-100); cholesterol:hdl ratio screen 2.79
[2025-09-07 09:50] VITALS: BP 147/65; PULSE 77; RESP 17; TEMP 36.9; O2SAT 95
[2025-09-07] MEDS: Aspirin E.C. 81 MG Tablet PO ×2 (09:55→22:06)
[2025-09-07] MEDS: Senna/Docusate Sodium 1 Tablet 2 TABLET PO (09:56)
--- NOTE | 2025-09-07 09:58 | CASEMGMT ---
Social Work SW met with patient to complete initial assessment. Introduced self and role. Verified contacts. Patient confirmed code status as full code. Educated to [facility] insurance and review process. Pt stated she must be independent to return home as there is no support for her at DC. SW to assist with DC planning. Will continue to follow. Sheila Walsh CUSTOMER ASSOCIATE SYSTEM ADMIN
[2025-09-08] MEDS: Aspirin E.C. 81 MG Tablet PO ×2 (08:36→22:09)
--- NOTE | 2025-09-08 08:36 | NURSING ---
Discussed ortho f/u appt on 09/15/25. She doesn't think she'd have anyone to transport her. Provided her number to [facility], she agreed that'd be a good option and has used them in the past.
--- NOTE | 2025-09-08 11:40 | CASEMGMT ---
Social Work- SW met with pt and provided printables and education on home delivered meals and counseling resources. Pt shared information regarding her home experience and discussed with SW the benefits of having these services. Pt reports no other needs at this time. TIM Rojas
--- NOTE | 2025-09-08 16:18 | CASEMGMT ---
Social Work Insurance reviewed earlier than scheduled NEWS REPORTER and issued LCD 09/12, DC 09/13 SW spoke with pt at bedside. Informed of DC date. SW provided [facility] to pt and educated to appeal rights. Pt verbalized understanding and denied appeal. Pt is agreeable to DC. Pt and dtr will still have scheduled POC meeting 09/10, but SW inquired about HHC vs OP therapy. Pt to consider as transportation may be a barrier. SW educated to [facility] or [facility] and offered resources. Pt interested and will consider. Pt denied DME needs. SW to follow up tomorrow with decision. Pt requested assistance with dtr, explaining dtr is caring for her father with Alzheimer's and shared with pt that she is mentally struggling and her seizures are increasing d/t the stress. SW provided active listening and identified dtr is battling caregiver burn out. Pt stated her ex- has hired WAREHOUSE PACKAGING SUPERVISOR once a week but her dtr is still carrying out the tasks the additional days. Pt stated he has the funds to pay for more help but dtr expressed that she would be letting her father down by not being able to fully care for him. SW agreed to have conversation with dtr at POC meeting and educate to caregiver burnout, guilt, and encourage accepting additional help to support self-care. Pt very appreciative. Plan: DC home alone 09/13, needs FARHAT Walsh MSW ESTHETICIAN FACIALIST
[2025-09-09 06:52] VITALS: PULSE 77; O2SAT 97
[2025-09-09] MEDS: Aspirin E.C. 81 MG Tablet PO ×2 (09:33→21:15)
[2025-09-09 09:52] VITALS: BP 148/55; PULSE 82; RESP 15; TEMP 36.3; O2SAT 95
--- NOTE | 2025-09-09 10:23 | CASEMGMT ---
Social Work SW followed up with pt on choice for HHC or OP therapy. Pt chose to do OP therapy at [facility] and interested in using [facility]. SW agreed and will coordinate. SW provided resources for transportation to assist with additional pt appts. Pt appreciative. - JAMIN faxed referral to [facility]. Plan: DC home alone 09/13, [facility] PT Sheila Walsh OPTICAL MECHANIC APPRENTICE SUPERVISOR HOME ENERGY CONSULTANT
[2025-09-09 16:48] VITALS: BP 146/68; PULSE 70
--- NOTE | 2025-09-09 19:38 | DS.PCM_ITS ---
Providers Date of Admission: 09/03/25 Primary Care Physician: MELODIE Isabel Reason For Visit: LEFT TOTAL KNEE Diagnosis Discharge Diagnosis (1) Debility: Status: Acute Code(s): R53.81 - Other malaise (2) Status post total left knee replacement: Status: Acute Code(s): Z96.652 - Presence of left artificial knee joint (3) Atypical chest pain: Status: Inactive Code(s): R07.89 - Other chest pain (4) Acute respiratory failure with hypoxia: Status: Acute Code(s): J96.01 - Acute respiratory failure with hypoxia (5) Atelectasis: Status: Acute Code(s): J98.11 - Atelectasis (6) Depression: Status: Acute Code(s): F32.9 - Major depressive disorder, single episode, unspecified (7) Insomnia: Status: Acute Code(s): G47.00 - Insomnia, unspecified (8) Anxiety: Status: Acute Code(s): F41.9 - Anxiety disorder, unspecified (9) Coronary artery disease: Status: Acute Code(s): I25.10 - Atherosclerotic heart disease of [place] coronary artery without angina pectoris (10) Essential (primary) hypertension: Status: Acute Code(s): I10 - Essential (primary) hypertension (11) TIA (transient ischemic attack): Status: Acute Code(s): G45.9 - Transient cerebral ischemic attack, unspecified (12) GERD (gastroesophageal reflux disease): Status: Acute Code(s): K21.9 - Gastro-esophageal reflux disease without esophagitis (13) Hyperlipidemia, unspecified: Status: Acute Code(s): E78.5 - Hyperlipidemia, unspecified (14) B12 deficiency: Status: Acute Code(s): E53.8 - Deficiency of other specified B group vitamins (15) Rheumatoid arthritis: Status: Acute Code(s): M06.9 - Rheumatoid arthritis, unspecified (16) Ulcerative colitis: Status: Acute Code(s): K51.90 - Ulcerative colitis, unspecified, without complications Plan 84 year old female with below past medical history hospitalized for left total knee replacement 08/31/[address] Nito Viveros, postoperative course complicated by non cardiac chest pain, acute respiratory failure with hypoxia, ruled out pulmonary embolism, admitted to TCU with debility, here for rehabilitation, strengthening, prior to discharge home alone. * Debility - PT/OT. * Pain - Tylenol 1000mg q8, Tramadol 100mg q4 prn. * Bowel - senna/colace 2 tablets bid. * Adult immunization - Administer pneumonia vaccine, covid vaccine, flu vaccine as appropriate. * DVT prophylaxis - Aspirin 81mg bid thru 10/01/2025. * Hypertension - Coreg 6.25mg bidcm, Lisinopril 40mg daily, Amlodipine 5mg daily. * Hyperlipidemia - Atorvastatin 20mg qhs. * Vitamin B12 deficiency - B12 1000mcg daily. * Vitamin D deficiency - Vitamin D 1.25mg qweek. * Rheumatoid arthritis - MTX 10mg sc qweek, Folic acid 1mg daily. * Nausea - Zofran odt 4mg q12h prn. * GERD - Pantoprazole 20mg bid. * Cellulitis left knee - Clindamycin 300mg tid x 7 days. * Atypical chest pain - Monitor * Acute respiratory failure with hypoxia - Wean oxygen as tolerated. The following psychotropic medication was present on admission: Clonazepam 0.5mg qhs. Psychotropic medication therapy is indicated for a diagnosis of: Anxiety/insomnia. Based on my clinical evaluation, continuation of the medication is necessary at this time. Gradual dose reduction plan (select one): ____ GDR will be attempted. Will monitor patient symptoms and behaviors in response to GDR. __x__ GRD contraindicated. Reason contraindicated: stable chronic long ter,m use. The following psychotropic medication was present on admission: Sertraline 50mg daily. Psychotropic medication therapy is indicated for a diagnosis of: Major Depression. Based on my clinical evaluation, continuation of the medication is necessary at this time. Gradual dose reduction plan (select one): ____ GDR will be attempted. Will monitor patient symptoms and behaviors in response to GDR. __x__ GRD contraindicated. Reason contraindicated: stable chronic [facility] use. Medications at Discharge Home Medications omeprazole 20 mg capsule,delayed release 20 mg PO BID gerd/UC 03/20/14 atorvastatin 20 mg tablet 20 mg PO QHS cholesterol 02/04/23 sertraline 50 mg tablet 50 mg PO DAILY mood 12/30/24 acetaminophen 500 mg capsule 1,000 mg PO Q6H PRN pain 12/31/24 cyanocobalamin (vitamin B-12) 1,000 mcg capsule 1,000 mcg PO DAILY supplement 12/31/24 ergocalciferol (vitamin D2) 1,250 mcg (50,000 unit) capsule 1,250 mcg PO QWEEK supplement 12/31/24 clonazepam 0.5 mg tablet (Klonopin) 0.5 mg PO QHS #5 tabs 04/16/25 folic acid 1 mg tablet 1 mg PO DAILY supplement 07/06/25 methotrexate sodium (PF) 25 mg/mL injection solution 10 mg subcut QWEEK arthritis 07/06/25 carvedilol 6.25 mg tablet 6.25 mg PO BID BP/heart rate 08/03/25 lisinopril 40 mg tablet 40 mg PO QDAY BP 08/03/25 amlodipine 5 mg tablet 5 mg PO DAILY bp 09/03/25 aspirin 81 mg tablet,delayed release 81 mg PO BID 18 days #0 tabs 09/09/25 Hospital Course Operations total knee replacement (Left.) Procedures None Summary of Care Provided Minutes Spent on Discharge: 35 Hospital Course: 84 year old female with below past medical history hospitalized for left total knee replacement 08/31/[address] Nito Viveros, postoperative course complicated by non cardiac chest pain, acute respiratory failure with hypoxia, ruled out pulmonary embolism, admitted to TCU with debility, here for rehabilitation, strengthening, prior to discharge home alone. Discharge home alone 09/13/2025, [facility] PT. Physical Exam Const alert General Appearance: cooperative HEENT normocephalic Eyes PERRL and EOMs intact bilaterally Neck supple, no JVD and no carotid bruits Resp normal respiratory effort, normal air movement and clear to auscultation bilaterally Cardio regular rate and regular rhythm GI normal to inspection, nondistended, normoactive bowel sounds, non-tender and non-distended Extremity normal capillary refill General Extremity: Negative for edema Skin no rashes or lesions noted General Skin Exam: no breakdown Psych affect normal Appearance: appropriate Weight / BMI Weight Weight: 68.039 kg Body Mass Index (BMI) 23.5 ABG / Lab / Microbiology Data 09/06/25 05:13 09/04/25 06:29 D/C Instructions Discharge Activity: Return to Normal Activity, May Shower and Use Walker Weight Bearing Status: Weight bearing as tolerated Call your doctor if you observe: Fever of 101 or Higher, Inability to urinate, Inability to have a bowel movement, Shortness of breath, Dizziness, Fainting spells, Swelling in the ankles, Chest pain and Uncontrolled pain DC O2, CPAP, BIPAP Needs Home O2 Discharge instructions: No Additional Instructions: Discharge home alone 09/13/2025, [facility] PT. Please Follow Up With: Ivone TORIBIO When: As scheduled. Meaningful Use Info Meaningful Use Meaningful Use Diagnoses (Choose all that apply): None applicable Discharge Plan Admission Admit Date/Time: 09/03/25 13:40 Primary Reason for Your Visit: Debility. Attending Provider: Deondre Murdock Chi Primary Care Provider: Dee Jo Instructions Additional Instructions / Restrictions: Discharge home alone 09/13/2025, [facility] PT. Discharge Orders/Prescriptions Prescriptions: New aspirin 81 mg Tablet,Delayed Release (Dr/Ec) 81 mg PO BID 18 Days Qty: 0 0RF Continued atorvastatin 20 mg tablet 20 mg PO QHS carvedilol 6.25 mg tablet 6.25 mg PO BID lisinopril 40 mg tablet 40 mg PO QDAY omeprazole 20 MG capsule 20 mg PO BID Patient Comments: GERD sertraline 50 mg tablet 50 mg PO DAILY ergocalciferol (vitamin D2) 1,250 mcg (50,000 unit) capsule 1,250 mcg PO QWEEK cyanocobalamin (vitamin B-12) 1,000 mcg capsule 1,000 mcg PO DAILY acetaminophen 500 mg capsule 1,000 mg PO Q6H PRN (Reason: pain) folic acid 1 mg tablet 1 mg PO DAILY methotrexate sodium (PF) 25 mg/mL solution 10 mg subcut QWEEK amlodipine 5 mg tablet 5 mg PO DAILY clonazepam [Klonopin] 0.5 mg tablet 0.5 mg PO QHS Qty: 5 0RF Discontinued mirtazapine 7.5 mg tablet 7.5 mg PO QHS Qty: 30 2RF triamcinolone acetonide 55 mcg aerosol,spray 2 spray INTRANASAL DAILY PRN ondansetron HCl 4 mg tablet 4 mg PO Q12H PRN PRN (Reason: nausea/vomiting) tramadol 50 mg tablet 100 mg PO Q4H PRN PRN (Reason: pain (scale score 6-10)) sennosides-docusate sodium [Senna with Docusate Sodium] 8.6-50 mg tablet 1 tab-cap PO BID aspirin 81 mg tablet,delayed release (DR/EC) 81 mg PO BID clonazepam 0.5 mg tablet 0.5 mg PO QHS Qty: 30 3RF Referrals / Follow Up: Dee [facility] [Primary Care Provider, Family Practice] - Within 1 Week Referral Note: Transition Care Management appointment. Disposition Disposition (needs filled in before D/C Order can be placed): Home, Self Care
--- NOTE | 2025-09-10 06:58 | NURSING ---
patient c/o dysuria, states she believes she has a UTI, written communication left for Dr. Murdock review this AM
[2025-09-10 08:09] LABS: Hematocrit 28.7 % (37-47); Hemoglobin 9.5 g/dL (12.0-15.0); Immature Granulocytes Count 0.080 X10^3/uL (0.0-0.0); Mean Corp Hgb Conc 33.1 g/dL (32-36); Mean Corpuscular Volume 99.0 fL (81-99); Mean Platelet Vol. 9.9 fl (6.2-12.0); NRBC Flagged by Analyzer 0 % (0-5); Platelet Count 325 K/mm3 (150-450); RBC Distribution Width CV 14.3 % (11.6-14.6); RBC Distribution Width SD 51.1 fl (35.1-43.9); Red Blood Count 2.90 M/mm3 (4.2-5.4); White Blood Count 9.5 K/mm3 (4.4-11.0)
[2025-09-10 08:34] VITALS: BP 152/59; PULSE 72; RESP 16; TEMP 37; O2SAT 96
[2025-09-10] MEDS: Senna/Docusate Sodium 1 Tablet 2 TABLET PO (08:40)
[2025-09-10] MEDS: Aspirin E.C. 81 MG Tablet PO ×2 (08:40→20:53)
[2025-09-10 08:56] LABS: Anion Gap 8 (5-15); BUN 14 mg/dL (4-19); BUN/Creat Ratio 18.6 RATIO (10-20); Calcium,Total 10.5 mg/dL (7.6-11.0); Carbon Dioxide 25.8 mmol/L (21.0-32.0); Chloride 106 mmol/L (98-108); Estimated Creatinine Clearance 52.72 ml/min (50-250); Glucose 104 mg/dL (70-99); Potassium 4.0 mmol/L (3.3-5.1)
--- NOTE | 2025-09-10 09:56 | NURSING ---
Addendum entered by Ayla Earl 09/10/25 10:38: pt st gallegosed for urine, 375cc clear pale yellow urine, no odor noted. sent to lab Original Note: pt c/o urinary frequency during night, dr baron updated by hourly shift manager. new order for UA & culture. pt notified. states "I think I may have an infection, I was up every 2 hours lastnight, but it does not burn"
[2025-09-10 10:40] LABS: Mucous, Urine 0 SEEN /hpf (<or=2+); Red Blood Cells-Urine 0 SEEN /hpf (0-5); Squamous Epithelial Cells - UA 0 SEEN /hpf (5-10)
[2025-09-10 10:45] LABS: Color, Urine Straw (Yellow); Glucose, Dipstick Normal (Normal); Ketone-Dipstick Negative (Negative); Leukocyte Esterase-Dipstick Negative /ul (Negative); Nitrite-Dipstick Negative (Negative); Occult Blood-Urine Negative /ul (Negative); Protein-Dipstick 15 mg/dl (Negative); Specific Gravity, Urine 1.010 (1.002-1.030); Urine Bilirubin Dipstick Negative (Negative)
--- NOTE | 2025-09-10 11:54 | NURSING ---
entered pt room and pt standing beside bed crying, 1:1 emotional support provided. pt expressed that her daughter cannot make it to POC meeting today at 1300 d/t mental health issues. muffle worker and TORRI Davis nurse notified that pt would like to talk to them. assisted pt with putting hospital pants on per her request. pt mentioned daughter has a lot going on taking care of her father with dementia.
--- NOTE | 2025-09-10 13:36 | NURSING ---
Heel Nail [facility] Note; MDS Complete
--- NOTE | 2025-09-10 13:53 | CASEMGMT ---
Addendum entered by Sheila Walsh 09/10/25 14:31: [facility] Van can transport pt and dtr at DC at 1330. Pt will meet the van at the main entrance. Original Note: Social Work IDT met with patient for care plan meeting. Pt was upset that dtr could no longer attend in person but was on the phone. Discussed patient's progress in PT/OT/SN. Confirmed DC home 09/13 with [facility] using the [facility] Van. Pt inquired about transportation for her appt on 09/15. SW encouraged pt to contact [facility] [employer] or [employer] today for that appt. Pt also stated she does not have transportation home. SW to contact [facility] [employer] or [employer] for availability. After dtr ended the call from the meeting, SW completed BIMS () and PHQ-2 () for MDS assessment. Pt inquired about SW speaking with dtr about her mental health. SW explained since dtr was not present and SW observed the atmosphere and conversation didn't feel appropriate over the phone. SW noted that pt visits with counselor weekly and hopefully the counselor can better assist pt with her mental health struggles and advisement on getting additional help for her father. SW suggested [employer] or SNF respite stay as options. pt and dtr are educated to both and may use those options. Dtr is going to stay with pt after DC, which, pt stated, will allow them to have 1:1 conversations and support. 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
[2025-09-10 18:36] VITALS: BP 146/58; PULSE 87
[2025-09-10 19:40] VITALS: PULSE 67; O2SAT 95
[2025-09-11 06:30] VITALS: PULSE 67; O2SAT 93
[2025-09-11 08:53] VITALS: BP 125/62; PULSE 74; RESP 17; TEMP 37; O2SAT 93
[2025-09-11] MEDS: Ergocalciferol 1.25 MG (50, 000 UNIT) Capsule PO (08:59)
[2025-09-11] MEDS: Aspirin E.C. 81 MG Tablet PO ×2 (08:59→20:44)
[2025-09-11] MEDS: Tuberculin,Purif.prot.deriv. 50 TU/ML Vial 0.1 ML ID (15:23)
[2025-09-12 08:55] VITALS: BP 144/48; PULSE 68; RESP 16; TEMP 36.9; O2SAT 95
[2025-09-12] MEDS: Aspirin E.C. 81 MG Tablet PO ×2 (08:59→22:12)
[2025-09-12 21:18] VITALS: PULSE 65; O2SAT 95
[2025-09-12] MEDS: Senna/Docusate Sodium 1 Tablet 2 TABLET PO (21:19)
[2025-09-13 05:50] VITALS: PULSE 67; O2SAT 98
[2025-09-13 09:15] VITALS: BP 120/43; PULSE 75; RESP 16; TEMP 37.1; O2SAT 94
[2025-09-13] MEDS: Arthritis Pain Compound 60 CLICK TUBE TOPICAL (09:21)
[2025-09-13] MEDS: Aspirin E.C. 81 MG Tablet PO (09:21)
[2025-09-13 13:00] VITALS: BP 146/54; PULSE 80; RESP 17; TEMP 37; O2SAT 95
--- NOTE | 2025-09-13 15:02 | NURSING ---
Offered covid vaccine, VIS provided. Resident declines.
--- NOTE | 2025-09-14 10:38 | MDS.RN ---
Information for the MDS was obtained from review of the clinical record, interview of resident, staff, and direct observation of resident’s care.
== END 2025-09-13 13:25 | disposition home or self-care (01) | DRG 559 ==
PROVIDERS: Admitting Provider Family Medicine Geriatric Medicine; PCP Clinical Nurse Specialist Adult Health; Referring Provider Family Medicine Geriatric Medicine; Visit Provider Family Medicine Geriatric Medicine
DX: Z47.1 Aftercare following joint replacement surgery (principal); J96.01 Acute respiratory failure with hypoxia; F33.9 Major depressive disorder, recurrent, unspecified; K51.90 Ulcerative colitis, unspecified, without complications; J98.11 Atelectasis; L03.116 Cellulitis of left lower limb; M06.9 Rheumatoid arthritis, unspecified; I10 Essential (primary) hypertension; E55.9 Vitamin D deficiency, unspecified; F41.9 Anxiety disorder, unspecified; E53.8 Deficiency of other specified B group vitamins; E78.00 Pure hypercholesterolemia, unspecified; K21.9 Gastro-esophageal reflux disease without esophagitis; I25.10 Atherosclerotic heart disease of native coronary artery without angina pectoris; Z86.73 Personal history of transient ischemic attack (TIA), and cerebral infarction without residual deficits; G47.00 Insomnia, unspecified; Z79.899 Other long term (current) drug therapy; R07.89 Other chest pain; Z87.891 Personal history of nicotine dependence; Z96.652 Presence of left artificial knee joint; M32.9 Systemic lupus erythematosus, unspecified; Z79.82 Long term (current) use of aspirin
CPT/HCPCS: 36415; 80048; 80061; 81001; 82306; 82607; 85014; 85018; 85025; 87086; 97110; 97116; 97162; 97165; 97530; 97535; J9260